=== PATIENT | female | born 1945 | race Caucasian/White ===

== ENCOUNTER 2017-02-25 16:59 | Emergency (ER) | payer OTHER ==
[~2017-02-25] VITALS: Ht 157.5 cm; Wt 136.0 kg
[~2017-02-25 16:59] MED LIST: ALBU0.08 INH; ASPI-435 PO; ATR25 PO; CLR10 PO; CRG125 PO; CYAN100T PO; FURO-85 PO; INSDGI SC; IPRA1AER2 INH; LEVO1TAB34 PO; LOSA100T65 PO; LSX20 PO; METF1000 PO; MOME50SP5; MULT1CHW4 PO; SIMV40TA4 PO; SITA50TA PO; [UNRECOGNIZED DRUG - CODE] PO
[2017-02-25 17:02] VITALS: TEMP 36.6; Ht 157.5 cm; Wt 136.0 kg
[2017-02-25] MEDS ORDERED: SODIUM CHLORIDE 0.9% 250ML 250 ML IV STA (17:24)
[2017-02-25] MEDS ORDERED: SODIUM CHLORIDE 0.9% 1000ML 1,000 ML IV STA (17:24)
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
[2017-02-25 17:57] LABS: BASO % 1.2 %; BASO ABS # 0.08 K/uL (0-0.2); COMPLETE YES; EOS % 5.2 %; HEMATOCRIT 39.6 % (37-47); IG% 0.1 %; LYMPH % 23.3 %; LYMPH ABS # 1.62 K/uL (1.2-3.4); MEAN CELL VOLUME 94.7 fL (80-100); MEAN CORPUSCULAR HEMOGLOBIN 31.1 pg (25-34); MEAN CORPUSCULAR HGB CONC 32.8 g/dl (32-36); MEAN PLATELET VOLUME 10.1 fL (7.4-10.4); MONO % 9.2 %; PLATELET COUNT 199 K/uL (130-400); RED BLOOD COUNT 4.18 M/uL (4.2-5.4); WHITE BLOOD COUNT 6.95 K/uL (4.8-10.8)
--- NOTE | 2017-02-25 18:02 | DIAGNOSTIC IMAGING REPORT ---
SINGLE VIEW CHEST CLINICAL HISTORY: Atypical chest pain. FINDINGS: An AP, portable, upright chest radiograph is compared to study dated 04/14/2016. Correlation is made with chest CT dated 05/07/2013. The examination is significantly degraded by portable technique, large body habitus, and patient rotation. A 2-lead cardiac pacemaker is unchanged in position. The heart is markedly enlarged and there is atherosclerotic calcification of the thoracic aorta. The pulmonary vasculature is noncongested. Chronic interstitial thickening is similar to previous. No airspace consolidation, large pleural effusion, or pneumothorax is seen. The skeletal structures are osteopenic. The bony thorax is grossly intact. IMPRESSION: 1. Cardiomegaly and cardiac pacemaker. There is no radiographic evidence of congestive failure. 2. No airspace consolidation or pleural effusion is seen. Electronically signed by: Celestino Guerrero M.D. 02/25/2017 6:01 PM Dictated Date/Time: 02/25/2017 6:00 PM
[2017-02-25 18:05] LABS: PARTIAL THROMBOPLASTIN RATIO 0.9; PROTHROMBIN TIME (PATIENT) 10.5 SECONDS (9.0-12.0)
[2017-02-25 18:12] LABS: BLOOD UREA NITROGEN 22 mg/dl (7-18); BUN/CREATININE RATIO 13.6 (10-20); CALCIUM 9.4 mg/dl (8.5-10.1); CARBON DIOXIDE 28 mmol/L (21-32); CHLORIDE 101 mmol/L (98-107); GLUCOSE 194 mg/dl (70-99); MAGNESIUM 1.7 mg/dl (1.8-2.4); POTASSIUM 4.2 mmol/L (3.5-5.1); SODIUM 137 mmol/L (136-145)
[2017-02-25] MEDS ORDERED: ALBINS/ INH (18:27)
[2017-02-25] MEDS ORDERED: ULT50 PO (18:27)
[2017-02-25] MEDS ORDERED: POTA1GRA PO (18:27)
[2017-02-25] MEDS ORDERED: INSDGIPEN SC (18:27)
[2017-02-25] MEDS ORDERED: QVRINH80 INH (18:27)
[2017-02-25] MEDS ORDERED: SNG10 PO (18:27)
[2017-02-25] MEDS ORDERED: MAGN400C2 PO (18:27)
[2017-02-25 18:32] LABS: ALKALINE PHOSPHATASE 73 U/L (45-117); ALT/SGPT 38 U/L (12-78); AST/SGOT 35 U/L (15-37); CKMB/CK RATIO 2.1 (0-3.0)
[2017-02-25 19:22] VITALS: BP 152/61; PULSE 76; O2SAT 95
== END 2017-02-25 20:15 | disposition home or self-care (01) ==
LOC: C.EDB 17:00
DX: R07.9 Chest pain, unspecified (principal); J45.909 Unspecified asthma, uncomplicated; I10 Essential (primary) hypertension; E11.9 Type 2 diabetes mellitus without complications; Z82.49 Family history of ischemic heart disease and other diseases of the circulatory system; Z79.82 Long term (current) use of aspirin; Z79.4 Long term (current) use of insulin

== ENCOUNTER → 2017-03-04 | Outpatient (CLI) | payer OTHER ==
[~2017-03-04] MED LIST changes: +ALBINS/ INH; -ALBU0.08 INH; -INSDGI SC; +INSDGIPEN SC; -LEVO1TAB34 PO; +MAGN400C2 PO; -MOME50SP5; +POTA1GRA PO; +QVRINH80 INH; +SNG10 PO; +ULT50 PO; -[UNRECOGNIZED DRUG - CODE] PO
--- NOTE | 2017-03-04 11:13 | DIAGNOSTIC IMAGING REPORT ---
LUMBAR SPINE WITHOUT CLINICAL HISTORY: 71 years-old Female presenting with STENOSIS. TECHNIQUE: Multidetector CT of the lumbar spine was performed without the use of intravenous contrast. IV contrast: None. COMPARISON: Correlation made with plain radiographs of the lumbar spine from sleep 11/19/[address] of the abdomen and pelvis from 02/19/2012. CT DOSE: The estimated cumulative dose is 1833.93 mGy.cm. 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 Lung bases clear. Nonobstructive bowel gas pattern. Multilevel degenerative changes of the lumbar spine, including prominent anterior osteophytosis at T12-L1 and L1-2, endplate sclerosis at L1-2, and gas within the intervertebral discs at every level except L5-S1. Gas also noted within the facet joints at L4-5. 4 mm of grade 1 anterolisthesis of L4 on L5. Vertebral body heights are maintained. Intervertebral disc height loss greatest at T12-L1 and L1-2 and to a lesser extent at L2-3. The combination of anterolisthesis of L4 on L5 as well as suspected L4-5 disc bulge and notable facet hypertrophy results in bilateral osseous neural foraminal narrowing at L4-5. No significant osseous spinal canal narrowing. No acute osseous injury. Degenerative changes of the sacral iliac joints partially visualized. Atherosclerosis of the normal caliber abdominal aorta. Remaining visualized paraspinal soft tissues are within normal limits. IMPRESSION: 1. Grade 1 anterolisthesis of L4 on L5. In combination with suspected L4-5 disc bulge and facet hypertrophy, bilateral osseous neural foraminal narrowing at L4-5 results. No osseous spinal canal narrowing. Electronically signed by: Ganesh Angel 03/04/2017 11:12 AM Dictated Date/Time: 03/04/2017 11:03 AM
== END | disposition home or self-care (01) ==
LOC: C.CTS 09:17
PROVIDERS: ATTEND Orthopaedic Surgery Orthopaedic Surgery of the Spine
DX: M48.06 Spinal stenosis, lumbar region (principal); M53.86 Other specified dorsopathies, lumbar region

== ENCOUNTER 2017-09-09 15:52 | Emergency (ER) | payer OTHER ==
[~2017-09-09] VITALS: Ht 160 cm; Wt 130.0 kg
[~2017-09-09 15:52] MED LIST changes: -ALBINS/ INH; -INSDGIPEN SC; -MAGN400C2 PO; -POTA1GRA PO; -QVRINH80 INH; -SNG10 PO
[2017-09-09 16:09] VITALS: TEMP 36.7; Ht 160 cm; Wt 130.0 kg
[2017-09-09] MEDS ORDERED: SODIUM CHLORIDE 0.9% 1000ML 1,000 ML IV STA (17:38)
[2017-09-09] MEDS ORDERED: ASTN (17:42)
[2017-09-09] MEDS ORDERED: BCTCR/30 EXT (17:42)
[2017-09-09] MEDS ORDERED: ACET-749 PO (17:42)
[2017-09-09] MEDS ORDERED: CHOL20009 PO (17:42)
[2017-09-09] MEDS ORDERED: ALBINS/ INH (18:27)
[2017-09-09] MEDS ORDERED: MAGN400C2 PO (18:27)
[2017-09-09] MEDS ORDERED: QVRINH80 INH (18:27)
[2017-09-09] MEDS ORDERED: INSDGIPEN SC (18:27)
[2017-09-09] MEDS ORDERED: SNG10 PO (18:27)
[2017-09-09] MEDS ORDERED: POTA1GRA PO (18:27)
[2017-09-09 19:09] LABS: CALCIUM 10.8 mg/dl (8.5-10.1); CREATININE 2.1 mg/dl (0.60-1.20)
--- NOTE | 2017-09-09 20:50 | EMERGENCY ROOM VISIT NOTE ---
History Report prepared by Garth: [place] Under the Supervision of: Dr. Reza Reddy M.D. First contact with patient: 17:38 Chief Complaint: ABNORMAL LABS Stated Complaint: KIDNEY MALFUNCTION/FOOT INFECTION History of Present Illness The patient is a 72 year old female who presents to the Emergency Room with complaints of elevated creatinine and hyperkalemia. 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 She was called with her results shortly prior to arrival. The patient denies chest pain, SOB, palpitations, fevers, nausea, vomiting, or diarrhea. Source of History: patient Onset: Today Quality: other (high creatinine and hyperkalemia) Associated Symptoms: No chest pain, No SOB, No nausea, No vomiting, No diarrhea Note: The patient denies palpitations. Review of Systems See HPI for pertinent positives and negatives. A total of ten systems were reviewed and were otherwise negative. Past Medical & Surgical Medical Problems: (1) Asthma (2) Benign hypertension (3) bilateral total knee arthroplasty (4) Diabetes mellitus (5) History of - tubal ligation (6) Pacemaker (7) Tonsillectomy Surgical Problems: (1) H/O tubal ligation (2) History of carpal tunnel release (3) History of cataract removal with insertion of prosthetic lens Family History Hypertension Social History Smoking Status: Never Smoker Drug Use: none Marital Status: Housing Status: lives with family Occupation Status: retired Current/Historical Medications Scheduled Aspirin (Aspirin 81), 81 MG PO QPM Azelastine Hcl (Astelin Nasal [place]), 1-2 SPRAYS NA BID Beclomethasone Dip (Qvar), 2 PUFFS INH BID Carvedilol (Carvedilol), 12.5 MG PO BID Cholecalciferol (Vitamin D), 2,000 UNITS PO QPM Cyanocobalamin (Vitamin B-12), 100 MCG PO DAILY Furosemide (Furosemide), 20 MG PO 3XWK Furosemide (Lasix), 40 MG PO 4XWK Insulin Glargine (Lantus Solostar), 65 UNITS SC BID Loratadine (Claritin), 10 MG PO DAILY Losartan Potassium (Cozaar), 100 MG PO DAILY Magnesium Oxide (Magnesium Oxide), 1 CAP PO DAILY Metformin Hcl (Glucophage), 1,000 MG PO BID Montelukast Sod (Montelukast Sodium), 1 TAB PO DAILY Multiple Vitamins W/ Minerals (Adult Gummy), 2 TABS PO DAILY Mupirocin 2% (Bactroban 2%), 1 APPLN EXT UD Simvastatin (Zocor), 40 MG PO QPM Sitagliptin Phosphate (Januvia), 50 MG PO DAILY Scheduled PRN Acetaminophen/Codeine (Tylenol W/Codeine #3), 1 TAB PO Q6 PRN for Pain Albuterol Sulf (Proventil 0.083% 2.5MG/3ML), 2.5 MG INH QID PRN for SOB/Wheezing Allergies Coded Allergies: Fluticasone (Unverified Allergy, Severe, WATER ON LUNGS, 02/25/17) Salmeterol (Unverified Allergy, Severe, WATER ON LUNGS, 02/25/17) Molds and Smuts (Unverified Allergy, Mild, 02/25/17) Propoxyphene (Unverified Allergy, Mild, FROM DARVOCET, 02/25/17) Benzocaine (Verified Allergy, Unknown, ?, 02/25/17) Prednisone (Verified Adverse Reaction, Intermediate, HYPERGLYCEMIA, ) Uncoded Allergies: vinyl (Adverse Reaction, Unknown, RASH, 02/25/17) vinyl from cars - no latex allergy Physical Exam Vital Signs Date Time Temp Pulse Resp B/P (MAP) Pulse Ox O2 Delivery O2 Flow Rate FiO2 09/09/17 21:26 81 20 147/84 99 09/09/17 20:03 83 18 155/79 98 Room Air 09/09/17 18:18 77 20 140/62 96 09/09/17 16:09 36.7 89 16 149/65 93 Room Air Physical Exam GENERAL: Awake, alert, well-appearing, in no distress HENT: Normocephalic, Atraumatic. no hemotympanum bilaterally, hernandez sign negative bilaterally. Oropharynx unremarkable. EYES: Normal conjunctiva. Sclera non-icteric. PERRL bilaterally. EOMI bilaterally. NECK: Supple. No nuchal rigidity. FROM. No JVD. No C-spine tenderness. RESPIRATORY: Clear to auscultation. CARDIAC: Regular rate, normal rhythm. Extremities warm and well perfused. Equal palpable radial pulses to the bilateral upper extremities. Equal palpable DP pulses to the bilateral lower extremities. ABDOMEN: Soft, non-distended. No tenderness to palpation. No rebound or guarding. No masses. Rovsig Negative. RECTAL: Deferred. MUSCULOSKELETAL: Chest examination reveals no tenderness. The back is symmetrical on inspection without obvious abnormality. There is no CVA tenderness to palpation. No joint edema. LOWER EXTREMITIES: Calves are equal size bilaterally and non-tender. No edema. No discoloration. NEURO: Normal sensorium. No sensory or motor deficits noted. No pronator drift. No facial droop. No dysarthria. SKIN: No rash or jaundice noted. Medical Decision & Procedures Laboratory Results 09/09/17 18:10 09/09/17 19:21 Test 09/09/17 18:10 Anion Gap 6.0 mmol/L (3-11) Est Creatinine Clear Calc Drug Dose 31.9 ml/min Estimated GFR () 26.6 Estimated GFR (Non- 22.9 BUN/Creatinine Ratio 17.5 (10-20) Calcium Level 10.8 mg/dl (8.5-10.1) Laboratory results reviewed by me Medications Administered Medications (Trade) Dose Ordered Sig/Brendan Route Start Time Stop Time Status Last Admin Dose Admin Sodium Chloride 1,000 ml @ 125 mls/hr Q8H STAT IV 09/09/17 17:38 09/09/17 21:44 DC 09/09/17 18:16 125 MLS/HR ECG Indication: other (abnormal labs) Rate (beats per minute): 68 Rhythm: other (Paced rhythm) Findings: no acute ischemic change, other (FL and QTC intervals within normal limits. QRS interval increased) Comparison ECG Date: January 2017 Change: no significant change ED Course 1739: The patient was evaluated in room C6. A complete history and physical exam was performed. 1801: I obtained electronic medical records for the patient. She has a history of CKD stage 3. Lab results from today (Sep 09) showed a creatinine of 2.2 and a potassium of 6.0. Previous creatinine values from December through April 2017 range from 1.3 to 1.6. Previous potassium values ranged from 4.9 to 5.1. 2026: I discussed the patient's case with Dr. Tobar of Nephrology. I informed him of the patient's creatinine of 2.1 and potassium of 5.1. EKG showed no findings consistent with hyperkalemia. I and Dr. Tobar agrees with discharging the patient. He recommends informing the patient to hold potassium, Vitamin D3, and Lasix until he is able to reevaluate the patient on Tuesday. Discussed results and discharge instructions with the patient and family: she verbalized understanding and agreement. The patient is ready for discharge. Medical Decision I obtained electronic medical records for the patient. She has a history of CKD stage 3. Lab results from today (Sep 09) showed a creatinine of 2.2 and a potassium of 6.0. Previous creatinine values from December through April 2017 range from 1.3 to 1.6. Previous potassium values ranged from 4.9 to 5.1. I discussed the patient's case with Dr. Tobar of Nephrology. I informed him of the patient's creatinine of 2.1 and potassium of 5.1. EKG showed no findings consistent with hyperkalemia. I and Dr. Tobar agrees with discharging the patient. He recommends informing the patient to hold potassium, Vitamin D3, and Lasix until he is able to reevaluate the patient on Tuesday. Discussed results and discharge instructions with the patient and family: she verbalized understanding and agreement. The patient is ready for discharge. Medication Reconcilliation Current Medication List: was personally reviewed by me Blood Pressure Screening Patient's blood pressure: Elevated blood pressure Blood pressure disposition: Elevated BP felt to be situational Impression Primary Impression: CKD (chronic kidney disease) Scribe Attestation The scribe's documentation has been prepared under my direction and personally reviewed by me in its entirety. I confirm that the note above accurately reflects all work, treatment, procedures, and medical decision making performed by me. The chart was completed utilizing [employer] Speech voice recognition software. Grammatical errors, random word insertions, pronoun errors, and incomplete sentences are an occasional consequence of this system due to software limitations, ambient noise, and hardware issues. Any formal questions or concerns about the content, text, or information contained within the body of this dictation should be directly addressed to the physician for clarification. Departure Information Dispostion Home / Self-Care Referrals Asael Jones M.D.([facility]) (PCP) Forms HOME CARE DOCUMENTATION FORM, IMPORTANT VISIT INFORMATION, WORK / SCHOOL INSTRUCTIONS Patient Instructions Kidney Disease Chronic Dc, My [facility] Additional Instructions DO NOT TAKE LASIX, CHOLECALCIFEROL, HOLD ORAL POTASSIUM UNTIL BEING RE- EVALUATED BY DR. TOBAR ON TUESDAY FOLLOW UP WITH YOUR INVESTOR RELATIONS COORDINATOR DR. TOBAR ON TUESDAY
[2017-09-09 21:26] VITALS: BP 147/84; PULSE 81; O2SAT 99
== END 2017-09-09 21:27 | disposition home or self-care (01) ==
LOC: C.EDB 15:56 → C.EDC 21:27
DX: N18.9 Chronic kidney disease, unspecified (principal); I12.9 Hypertensive chronic kidney disease with stage 1 through stage 4 chronic kidney disease, or unspecified chronic kidney disease; E11.9 Type 2 diabetes mellitus without complications; J45.909 Unspecified asthma, uncomplicated; Z96.651 Presence of right artificial knee joint; Z96.652 Presence of left artificial knee joint; Z95.0 Presence of cardiac pacemaker; Z98.51 Tubal ligation status; Z98.49 Cataract extraction status, unspecified eye; Z98.890 Other specified postprocedural states; Z79.4 Long term (current) use of insulin; Z79.82 Long term (current) use of aspirin; Z79.84 Long term (current) use of oral hypoglycemic drugs; Z79.899 Other long term (current) drug therapy; Z88.8 Allergy status to other drugs, medicaments and biological substances; Z91.09 Other allergy status, other than to drugs and biological substances; Z82.49 Family history of ischemic heart disease and other diseases of the circulatory system

== ENCOUNTER 2017-09-30 14:50 | Emergency (ER) | payer OTHER ==
[~2017-09-30] VITALS: Ht 160 cm; Wt 130.0 kg
[~2017-09-30 14:50] MED LIST changes: +ACET-749 PO; +ALBINS/ INH; +ASTN; -ATR25 PO; +BCTCR/30 EXT; +CHOL20009 PO; +INSDGIPEN SC; -IPRA1AER2 INH; +MAGN400C2 PO; +QVRINH80 INH; +SNG10 PO; -ULT50 PO
[2017-09-30 14:59] VITALS: TEMP 36.6; Ht 160 cm; Wt 130.0 kg
[2017-09-30] MEDS ORDERED: ONDANSETRON INJ 2 MG/ML 2 ML VIAL IV STA (15:12)
[2017-09-30] MEDS ORDERED: MoRPHine SULFATE 4 MG/ML 1 ML CARP\\VIAL IV PRN (15:15)
--- NOTE | 2017-09-30 15:16 | EMERGENCY ROOM VISIT NOTE ---
History Report prepared by Garth: Roberto Veronica Under the Supervision of: Dr. Celestino Gomez M.D. First contact with patient: 15:05 Chief Complaint: INFECTION Stated Complaint: INFECTION IN R FOOT, SEVERE PAIN Nursing Triage Summary: "I'm here because I am frustrated, i've had a right foot infection for basically the last two months, i've seen 5 doctors six times plus 4 PA-C's. Supposedly it's better but it hurts like hell. I called the sql server dba this morning but she is out of town." Pt has never had a referral to the wound clinic. Pt has had multiple rounds of abx treatment History of Present Illness The patient is a 72 year old female who presents to the Emergency Room with complaints of waxing and waning pain in her right foot and toes that she has been dealing with for the past two months. The patient states that her pain began around Thanksgiving time, and has been causing her difficulty since. She is not able to wear socks or shoes because they worsen her pain. She is currently taking hydrocodone for pain. She has visited with 5 doctors and 4 physician's assistants, including a sql server dba for her symptoms and has not had any relief. An ultrasound performed in [facility] found vascular disease in the right leg. She has been prescribed multiple different antibiotics in oral, dermal, and intramuscular doses. She has a pacemaker and artificial knee and cannot have any MRIs performed. She has an appointment scheduled with a vascular specialist in [place] scheduled for the . Source of History: patient Onset: Two Months AUTOMATION QA LEAD Position: foot (right) Timing: waxes/wanes Modifying Factors (Worsening): other (socks/shoes) Review of Systems See HPI for pertinent positives & negatives. A total of 10 systems reviewed and were otherwise negative. Past Medical & Surgical Medical Problems: (1) Asthma (2) Benign hypertension (3) bilateral total knee arthroplasty (4) Diabetes mellitus (5) History of - tubal ligation (6) Pacemaker (7) Tonsillectomy Surgical Problems: (1) H/O tubal ligation (2) History of carpal tunnel release (3) History of cataract removal with insertion of prosthetic lens Family History Hypertension Social History Smoking Status: Never Smoker Drug Use: none Marital Status: Housing Status: lives with family Occupation Status: retired Current/Historical Medications Scheduled Amoxicillin & Pot Clavulanate (Augmentin 875-125 mg), 875 MG PO BID Aspirin (Aspirin 81), 81 MG PO QPM Beclomethasone Dip (Qvar), 2 PUFFS INH BID Carvedilol (Carvedilol), 12.5 MG PO BID Cyanocobalamin (Vitamin B-12), 100 MCG PO DAILY Insulin Glargine (Lantus Solostar), 65 UNITS SC BID Loratadine (Claritin), 10 MG PO DAILY Losartan Potassium (Cozaar), 100 MG PO DAILY Metformin Hcl (Glucophage), 1,000 MG PO BID Montelukast Sod (Montelukast Sodium), 1 TAB PO DAILY Multiple Vitamins W/ Minerals (Adult Gummy), 2 TABS PO DAILY Mupirocin 2% (Bactroban 2%), 1 APPLN EXT UD Simvastatin (Zocor), 40 MG PO QPM Sitagliptin Phosphate (Januvia), 50 MG PO DAILY Scheduled PRN Acetaminophen/Codeine (Tylenol W/Codeine #3), 1 TAB PO Q6 PRN for Pain Albuterol Sulf (Proventil 0.083% 2.5MG/3ML), 2.5 MG INH QID PRN for SOB/Wheezing Azelastine Hcl (Astelin Nasal [place]), 1-2 SPRAYS NA BID PRN for UD Hydrocodone/Acetaminophen 5MG/325MG ([place] 5MG/325MG), 1 TABLET PO Q6 PRN for Pain Allergies Coded Allergies: Fluticasone (Unverified Allergy, Severe, WATER ON LUNGS, 09/30/17) Salmeterol (Unverified Allergy, Severe, WATER ON LUNGS, 09/30/17) Molds and Smuts (Unverified Allergy, Mild, 09/30/17) Propoxyphene (Unverified Allergy, Mild, FROM DARVOCET, 09/30/17) Benzocaine (Verified Allergy, Unknown, ?, 09/30/17) Prednisone (Verified Adverse Reaction, Intermediate, HYPERGLYCEMIA, 09/30/17 ) Uncoded Allergies: vinyl (Adverse Reaction, Unknown, RASH, 02/25/17) vinyl from cars - no latex allergy Physical Exam Vital Signs Date Time Temp Pulse Resp B/P (MAP) Pulse Ox O2 Delivery O2 Flow Rate FiO2 2/2/18 19:29 80 18 161/67 98 09/30/17 18:22 68 16 150/51 100 Room Air 09/30/17 16:49 72 16 177/60 96 Room Air 09/30/17 14:59 36.6 69 20 124/58 100 Room Air Physical Exam GENERAL: Patient is in no acute distress. HEENT: No acute trauma, normocephalic atraumatic, mucous membranes moist, no nasal congestion, no scleral icterus. NECK: No stridor, no adenopathy, no meningismus, trachea is midline. LUNGS: Clear to auscultation bilaterally, no wheeze, no rhonchi, breath sounds equal. HEART: Without murmurs gallops or rubs, regular rate and rhythm. ABDOMEN: Soft, nontender, bowel sounds positive, no hernias, no peritonitis. EXTREMITIES: The right foot is swollen when compared to the left. The 2nd and 1st toes are erythematous and there is a healing abrasion to the dorsum of the 2nd toe and the base of the nail bed. No gross deformity, no drainage. Capillary refill is present but quite slow. The toes are quite tender to touch. NEUROLOGIC: Oriented x 3, no acute motor or sensory deficits, no focal weakness. SKIN: No rash, no jaundice, no diaphoresis. Medical Decision & Procedures ER Provider Diagnostic Interpretation: Imaging studies from [facility] Outpatient: 08/31/2017 9:00 AM - Jacob Watson In FOOT, MINIMUM 3 VIEWS - 08/30/2017 4:32 pm IMPRESSION: No radiographic evidence of osteomyelitis at this time. Follow-up imaging may be of value, as clinically indicated. 09/22/2017 6:39 - Walter Rad In VASCULAR LAB RESULTS DATE OF EXAMINATION: September 22, 2017 INDICATION: Non-healing ulcer IMPRESSION: KELLY at rest is 0.67 on the right and .99 on the left. 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 Waveform analysis is consistent with mild arterial occlusive disease for the left lower extremity. Radiology results as stated below per my review and radiologist interpretation: R LOWER EXTREMITY WITHOUT CLINICAL HISTORY: 72 years-old Female presenting with right foot pain, poss osteo or fx, infection in the right foot. TECHNIQUE: Multidetector CT of the right foot was performed without the use of intravenous contrast. IV contrast: None. A dose lowering technique was used consistent with the principles of ALARA (as low as reasonably achievable). COMPARISON: Plain radiographs from 08/27/2013. CT DOSE (mGy.cm): The estimated cumulative dose is 237.47 mGy.cm. FINDINGS: Stock Control Clerk topogram: Unremarkable. Diffuse subcutaneous edema and skin thickening throughout the foot. No focal irregularity of the cutis or subcutaneous emphysema to suggest a site of ulceration or necrotizing fasciitis. No evidence of osseous erosion or periosteal reaction to suggest osteomyelitis. No acute fracture or malalignment. Mild degenerative changes noted in the midfoot. Calcification along the medial aspect of the anterior process of the talus along the posterior medial aspect of the navicular may relate to a partially ossified accessory navicular or degenerative change. The ankle mortise is intact. Allowing for noncontrast technique, no focal fluid collection. Mild degenerative change at the ankle mortise, which is current. Atherosclerosis. IMPRESSION: Diffuse subcutaneous edema and skin thickening could be compatible with cellulitis. No CT evidence of osteomyelitis or acute osseous injury. Allowing for noncontrast technique, no evidence of abscess. If there is continuing clinical concern, noncontrast MR of the foot is more sensitive for osteomyelitis. Electronically signed by: Ganesh Angel M.D. 09/30/2017 4:13 PM Dictated Date/Time: 09/30/2017 4:08 PM R ART DOP DUPLEX LWR EXT UNI CLINICAL HISTORY: 72 years-old Female presenting with cool foot. TECHNIQUE: Real-time grayscale and color and spectral Doppler ultrasound imaging of the bilateral lower extremity arteries was performed. Measurements calculated based on NASCET criteria. COMPARISON: None. FINDINGS: Right: Common femoral artery: Patent. Peak systolic velocity 122 cm/s. Superficial femoral artery: Patent. Peak systolic velocity 87-124 cm/s. Popliteal artery: Patent. Peak systolic velocity 48-66 cm/s. Posterior tibial artery: Patent. Peak systolic velocity 26 cm/s. Anterior tibial artery: Patent. Peak systolic velocity 33 cm/s. Peroneal artery: Patent. Peak systolic velocity 45 cm/s. Dorsalis pedis: Patent. Peak systolic velocity 8 cm/s. KELLY Unable to be performed. Reference ranges: Normal KELLY 1.0-1.4; 0.9-0.99 borderline; less than 0.9 abnormal. IMPRESSION: 1. No hemodynamically significant stenosis seen within the lower extremity arteries. 2. Normal ankle-brachial indices. Electronically signed by: Ganesh Angel M.D. 09/30/2017 6:28 PM Dictated Date/Time: 09/30/2017 6:25 PM Laboratory Results 09/30/17 15:39 Red Blood Count 4.00, Mean Corpuscular Volume 95.0, Mean Corpuscular Hemoglobin 31.3, Mean Corpuscular Hemoglobin Concent 32.9, Mean Platelet Volume 9.7, Neutrophils (%) (Auto) 53.6, Lymphocytes (%) (Auto) 28.4, Monocytes (%) (Auto) 10.4, Eosinophils (%) (Auto) 6.7, Basophils (%) (Auto) 0.9, Neutrophils # (Auto ) 3.13, Lymphocytes # (Auto) 1.66, Monocytes # (Auto) 0.61, Eosinophils # (Auto ) 0.39, Basophils # (Auto) 0.05 09/30/17 15:39 Test 09/30/17 15:39 White Blood Count 5.84 K/uL (4.8-10.8) Red Blood Count 4.00 M/uL (4.2-5.4) Hemoglobin 12.5 g/dL (12.0-16.0) Hematocrit 38.0 % (37-47) Mean Corpuscular Volume 95.0 fL (80-100) Mean Corpuscular Hemoglobin 31.3 pg (25-34) Mean Corpuscular Hemoglobin Concent 32.9 g/dl (32-36) Platelet Count 177 K/uL (130-400) Mean Platelet Volume 9.7 fL (7.4-10.4) Neutrophils (%) (Auto) 53.6 % Lymphocytes (%) (Auto) 28.4 % Monocytes (%) (Auto) 10.4 % Eosinophils (%) (Auto) 6.7 % Basophils (%) (Auto) 0.9 % Neutrophils # (Auto) 3.13 K/uL (1.4-6.5) Lymphocytes # (Auto) 1.66 K/uL (1.2-3.4) Monocytes # (Auto) 0.61 K/uL (0.11-0.59) Eosinophils # (Auto) 0.39 K/uL (0-0.5) Basophils # (Auto) 0.05 K/uL (0-0.2) RDW Standard Deviation 52.9 fL (36.4-46.3) RDW Coefficient of Variation 15.2 % (11.5-14.5) Immature Granulocyte % (Auto) 0.0 % Immature Granulocyte # (Auto) 0.00 K/uL (0.00-0.02) Erythrocyte Sedimentation Rate 34 mm/hr (0-21) Anion Gap 3.0 mmol/L (3-11) Est Creatinine Clear Calc Drug Dose 50.0 ml/min Estimated GFR () 45.8 Estimated GFR (Non- 39.5 BUN/Creatinine Ratio 10.9 (10-20) Calcium Level 9.2 mg/dl (8.5-10.1) C-Reactive Protein < 0.29 mg/dl (0-0.29) Laboratory results reviewed by me. Medications Administered Medications (Trade) Dose Ordered Sig/Brendan Route Start Time Stop Time Status Last Admin Dose Admin Amoxicillin/ Clavulanate Potassium (Augmentin 875MG Home Pack) 1 Pump Audio STK-MED ONCE PO 09/30/17 18:59 09/30/17 19:00 DC 09/30/17 19:29 1 HOMEPACK ED Course 1505: The patient was evaluated in room B4B. A complete history and physical exam was performed. 1855: Reevaluated the patient. Discussed results and discharge instructions: She verbalized understanding and agreement. The patient is ready for discharge. 1858: Ordered Amoxicillin/Clavulanate Potassium 875 PO. Medical Decision Differential Diagnosis includes; Peripheral artery disease, foot ischemia, foot fracture, osteomyelitis, failed outpatient treatment, abscess. There is no leukocytosis or concerning anemia. Sedimentation rate only minimally elevated, C-reactive protein is normal. No renal failure or significant electrolyte abnormality. Right leg arterial ultrasound does not show any significant arterial stenosis, no arterial obstruction. Right foot CT shows cellulitis, no osteomyelitis, no obvious abscess. On exam, the patient did have capillary refill to the right first and second toes, the refill was slow though. The patient was stable for discharge. She will be discharged on Augmentin twice a day for 10 days. This is being used for presumed cellulitis. She has an appointment with vascular upcoming, she will keep this appointment. The patient was encouraged to return for worsening pain, any fever, worsening redness. Medication Reconcilliation Current Medication List: was personally reviewed by me Blood Pressure Screening Patient's blood pressure: Elevated blood pressure Blood pressure disposition: Elevated BP felt to be situational Impression Primary Impression: Cellulitis of right foot Additional Impression: Right foot pain Scribe Attestation The scribe's documentation has been prepared under my direction and personally reviewed by me in its entirety. I confirm that the note above accurately reflects all work, treatment, procedures, and medical decision making performed by me. Departure Information Dispostion Home / Self-Care Prescriptions Amoxicillin & Pot Clavulanate (Augmentin 875-125 mg) 1 Tab Tab 875 MG PO BID for 10 Days, #20 TAB Prov: Celestino Gomez M.D. 09/30/17 Referrals Asael Jones M.D.(CINTHYA) (PCP) Forms HOME CARE DOCUMENTATION FORM, IMPORTANT VISIT INFORMATION, WORK / SCHOOL INSTRUCTIONS Patient Instructions My [facility] Additional Instructions try to keep the foot elevated when able as we discussed watch for worsening infection--redness, fever, increasing pain use the pain meds your doctor prescribed augmentin 2x per day for 10 days see the specialist in 10 days as scheduled Problem Qualifiers
[2017-09-30] MEDS ORDERED: HYDR-5688 PO (15:26)
[2017-09-30 16:06] LABS: BASO % 0.9 %; BASO ABS # 0.05 K/uL (0-0.2); EOS % 6.7 %; EOS ABS # 0.39 K/uL (0-0.5); HEMOGLOBIN 12.5 g/dL (12.0-16.0); LYMPH % 28.4 %; LYMPH ABS # 1.66 K/uL (1.2-3.4); MEAN CORPUSCULAR HEMOGLOBIN 31.3 pg (25-34); MEAN CORPUSCULAR HGB CONC 32.9 g/dl (32-36); MEAN PLATELET VOLUME 9.7 fL (7.4-10.4); MONO % 10.4 %; MONO ABS # 0.61 K/uL (0.11-0.59); NEUT % 53.6 %; NEUT ABS # 3.13 K/uL (1.4-6.5); PLATELET COUNT 177 K/uL (130-400); RED CELL DISTRIBUTION WIDTH CV 15.2 % (11.5-14.5); RED CELL DISTRIBUTION WIDTH SD 52.9 fL (36.4-46.3); WHITE BLOOD COUNT 5.84 K/uL (4.8-10.8)
--- NOTE | 2017-09-30 16:14 | DIAGNOSTIC IMAGING REPORT ---
R LOWER EXTREMITY WITHOUT CLINICAL HISTORY: 72 years-old Female presenting with right foot pain, poss osteo or fx, infection in the right foot. TECHNIQUE: Multidetector CT of the right foot was performed without the use of intravenous contrast. IV contrast: None. A dose lowering technique was used consistent with the principles of ALARA (as low as reasonably achievable). COMPARISON: Plain radiographs from 08/27/2013. CT DOSE (mGy.cm): The estimated cumulative dose is 237.47 mGy.cm. FINDINGS: Ultrasound Technician topogram: Unremarkable. Diffuse subcutaneous edema and skin thickening throughout the foot. No focal irregularity of the cutis or subcutaneous emphysema to suggest a site of ulceration or necrotizing fasciitis. No evidence of osseous erosion or periosteal reaction to suggest osteomyelitis. No acute fracture or malalignment. Mild degenerative changes noted in the midfoot. Calcification along the medial aspect of the anterior process of the talus along the posterior medial aspect of the navicular may relate to a partially ossified accessory navicular or degenerative change. The ankle mortise is intact. Allowing for noncontrast technique, no focal fluid collection. Mild degenerative change at the ankle mortise, which is current. Atherosclerosis. IMPRESSION: Diffuse subcutaneous edema and skin thickening could be compatible with cellulitis. No CT evidence of osteomyelitis or acute osseous injury. Allowing for noncontrast technique, no evidence of abscess. If there is continuing clinical concern, noncontrast MR of the foot is more sensitive for osteomyelitis. Electronically signed by: Ganesh Angel M.D. 09/30/2017 4:13 PM Dictated Date/Time: 09/30/2017 4:08 PM
[2017-09-30 16:26] LABS: BLOOD UREA NITROGEN 15 mg/dl (7-18); CALCIUM 9.2 mg/dl (8.5-10.1); CARBON DIOXIDE 30 mmol/L (21-32); CREATININE 1.34 mg/dl (0.60-1.20); GLUCOSE 123 mg/dl (70-99); POTASSIUM 4.9 mmol/L (3.5-5.1); SODIUM 137 mmol/L (136-145)
--- NOTE | 2017-09-30 18:29 | DIAGNOSTIC IMAGING REPORT ---
R ART DOP DUPLEX LWR EXT UNI CLINICAL HISTORY: 72 years-old Female presenting with cool foot. TECHNIQUE: Real-time grayscale and color and spectral Doppler ultrasound imaging of the bilateral lower extremity arteries was performed. Measurements calculated based on NASCET criteria. COMPARISON: None. FINDINGS: Right: Common femoral artery: Patent. Peak systolic velocity 122 cm/s. Superficial femoral artery: Patent. Peak systolic velocity 87-124 cm/s. Popliteal artery: Patent. Peak systolic velocity 48-66 cm/s. Posterior tibial artery: Patent. Peak systolic velocity 26 cm/s. Anterior tibial artery: Patent. Peak systolic velocity 33 cm/s. Peroneal artery: Patent. Peak systolic velocity 45 cm/s. Dorsalis pedis: Patent. Peak systolic velocity 8 cm/s. KELLY Unable to be performed. Reference ranges: Normal KELLY 1.0-1.4; 0.9-0.99 borderline; less than 0.9 abnormal. IMPRESSION: 1. No hemodynamically significant stenosis seen within the lower extremity arteries. 2. Normal ankle-brachial indices. Electronically signed by: Ganesh Angel M.D. 09/30/2017 6:28 PM Dictated Date/Time: 09/30/2017 6:25 PM
[2017-09-30] MEDS ORDERED: AMOX875T PO (18:50)
[2017-09-30] MEDS ORDERED: AMOXICIL/CLAVU 875MG HOME PACK PO ONE (18:59)
[2017-09-30 19:29] VITALS: BP 161/67; PULSE 80; O2SAT 98
[2017-09-30] MEDS ORDERED: AMOXICILLIN/CLAVULANATE TAB 875 MG TAB PO ONE (21:00)
== END 2017-09-30 19:30 | disposition home or self-care (01) ==
LOC: C.EDB 14:52
DX: L03.115 Cellulitis of right lower limb (principal); M79.671 Pain in right foot; J45.909 Unspecified asthma, uncomplicated; I10 Essential (primary) hypertension; Z96.653 Presence of artificial knee joint, bilateral; E11.9 Type 2 diabetes mellitus without complications; Z95.0 Presence of cardiac pacemaker; Z82.49 Family history of ischemic heart disease and other diseases of the circulatory system; Z79.82 Long term (current) use of aspirin; Z79.899 Other long term (current) drug therapy

== ENCOUNTER 2017-10-13 15:02 | Emergency (ER) | payer OTHER ==
[~2017-10-13] VITALS: Ht 162.6 cm; Wt 135.0 kg
[~2017-10-13 15:02] MED LIST changes: -CHOL20009 PO; -FURO-85 PO; +HYDR-5688 PO; -LSX20 PO; -MAGN400C2 PO
[2017-10-13 15:31] VITALS: Ht 162.6 cm; Wt 135.0 kg
[2017-10-13] MEDS ORDERED: CLOP1TAB15 PO (16:16)
--- NOTE | 2017-10-13 18:52 | DIAGNOSTIC IMAGING REPORT ---
RIGHT LOWER EXTREMITY ARTERIAL DOPPLER STUDY CLINICAL HISTORY: rt foot pain s/p angioplasty of popliteal artery 2 days ago, add KELLY's COMPARISON STUDY: Right lower extremity arterial Doppler 09/30/2017. FINDINGS: Normal velocities and biphasic to triphasic waveforms seen within the right common femoral and right superficial femoral arteries. Elevated velocity of 203 cm/s within the proximal right popliteal artery which also demonstrates monophasic waveform. This results in low velocity monophasic waveforms seen within the anterior tibial, posterior tibial, peroneal, and dorsalis pedis arteries. No areas of arterial occlusion identified. The right ankle-brachial index measured between 0.85 and 0.87. The left ankle-brachial measured between 0.96 and 1.1. IMPRESSION: 1. Focal area of hemodynamically significant stenosis seen within the right proximal popliteal artery as described above. 2. No areas of arterial occlusion. 3. Slightly abnormal right ankle-brachial index measured between 0.85 and 0.87. Normal left ankle-brachial index. Electronically signed by: Jj Solano M.D. 10/13/2017 6:50 PM Dictated Date/Time: 10/13/2017 6:46 PM
--- NOTE | 2017-10-13 20:19 | EMERGENCY ROOM VISIT NOTE ---
History Report prepared by Garth: Ghulam Armendariz Under the Supervision of: Dr. Kike Baires D.O. First contact with patient: 15:18 Stated Complaint: R LEG AND FOOT PAIN History of Present Illness The patient is a 72 year old female who presents to the Emergency Room with complaints of constant right foot pain beginning last night. The patient states that she has been having right foot problems for the past ten weeks. She notes that her foot pain originally began with a foot infection that never correctly healed. She reports that she had vascular surgery 2 days ago behind her right knee for her symptoms. The patient states that she was discharged last night, and began experiencing pain in her right foot. She notes that her pain is located at a bruise on her heel and in her toes. She also complains that her foot is warmer than usual and that her foot feels tight, "like it is bound up with thread." Per , the patient was given an ice pack last night with some relief of her symptoms. He reports that the patient took acetaminophen an hour ago. The patient states that she has a pacemaker in place. Source of History: patient, spouse/significant other Onset: last night Position: foot (right) Quality: other ("tight") Timing: constant Modifying Factors (Relieving): ice Note: She also complains of foot warmth. Review of Systems See HPI for pertinent positives & negatives. A total of 10 systems reviewed and were otherwise negative. Past Medical & Surgical Medical Problems: (1) Asthma (2) Benign hypertension (3) bilateral total knee arthroplasty (4) Diabetes mellitus (5) History of - tubal ligation (6) Pacemaker (7) Tonsillectomy Surgical Problems: (1) H/O tubal ligation (2) History of carpal tunnel release (3) History of cataract removal with insertion of prosthetic lens Family History Cancer Diabetes mellitus Heart disease Hypertension Social History Smoking Status: Never Smoker Drug Use: none Marital Status: Housing Status: lives with family Occupation Status: retired Current/Historical Medications Scheduled Aspirin (Aspirin 81), 81 MG PO QPM Beclomethasone Dip (Qvar), 2 PUFFS INH BID Carvedilol (Carvedilol), 12.5 MG PO BID Clopidogrel (Plavix), 75 MG PO QAM Cyanocobalamin (Vitamin B-12), 100 MCG PO DAILY Insulin Glargine (Lantus Solostar), 65 UNITS SC BID Loratadine (Claritin), 10 MG PO DAILY Losartan Potassium (Cozaar), 100 MG PO DAILY Metformin Hcl (Glucophage), 1,000 MG PO BID Montelukast Sod (Montelukast Sodium), 1 TAB PO DAILY Multiple Vitamins W/ Minerals (Adult Gummy), 2 TABS PO DAILY Mupirocin 2% (Bactroban 2%), 1 APPLN EXT UD Simvastatin (Zocor), 40 MG PO QPM Sitagliptin Phosphate (Januvia), 50 MG PO DAILY Scheduled PRN Acetaminophen/Codeine (Tylenol W/Codeine #3), 1 TAB PO Q6 PRN for Pain Albuterol Sulf (Proventil 0.083% 2.5MG/3ML), 2.5 MG INH QID PRN for SOB/Wheezing Azelastine Hcl (Astelin Nasal [place]), 1-2 SPRAYS NA BID PRN for UD Hydrocodone/Acetaminophen 5MG/325MG ([place] 5MG/325MG), 1 TABLET PO Q6 PRN for Pain Allergies Coded Allergies: Fluticasone (Verified Allergy, Severe, WATER ON LUNGS, 10/13/17) Salmeterol (Verified Allergy, Severe, WATER ON LUNGS, 10/13/17) Molds and Smuts (Verified Allergy, Mild, 10/13/17) Propoxyphene (Verified Allergy, Mild, FROM DARVOCET, 10/13/17) Benzocaine (Verified Allergy, Unknown, ?, 10/13/17) Prednisone (Verified Adverse Reaction, Intermediate, HYPERGLYCEMIA, ) Uncoded Allergies: vinyl (Adverse Reaction, Unknown, RASH, 02/25/17) vinyl from cars - no latex allergy Physical Exam Vital Signs Date Time Temp Pulse Resp B/P (MAP) Pulse Ox O2 Delivery O2 Flow Rate FiO2 10/13/17 18:24 70 16 123/93 97 Room Air 10/13/17 17:27 20 10/13/17 15:31 36.7 78 22 110/99 98 Room Air Physical Exam CONSTITUTIONAL/VITAL SIGNS: Reviewed / noted above. GENERAL: Non-toxic in appearance. INTEGUMENTARY: Warm, dry, and [place]. HEAD: Normocephalic. EYES: without scleral icterus or trauma. ENT/OROPHARYNX: clear and moist. LYMPHADENOPATHY/NECK: Is supple without lymphadenopathy or meningismus. RESPIRATORY: Lungs clear and equal. CARDIOVASCULAR: Regular rate and rhythm. GI/ABDOMEN: Soft and nontender. No organomegaly or pulsatile mass. No rebound or guarding. Normal bowel sounds. EXTREMITIES: Warm and well perfused. Right leg reveals dark redness to the toes with a small distal eschar to the right second toe, buckle gluer erythema is noted to the dorsal aspect of the foot, significant tenderness and some mild ecchymosis and erythema to the right lateral heel region, very mild erythema and warmth to the anterior portion of the right leg. BACK: No CVA tenderness. NEUROLOGICAL: Intact without focal deficits. PSYCHIATRIC: normal affect. MUSCULOSKELETAL: Normally developed with good muscle tone. Medical Decision & Procedures ER Provider Diagnostic Interpretation: Radiology results as stated below per my review and radiologist interpretation: RIGHT LOWER EXTREMITY ARTERIAL DOPPLER STUDY FINDINGS: Normal velocities and biphasic to triphasic waveforms seen within the right common femoral and right superficial femoral arteries. Elevated velocity of 203 cm/s within the proximal right popliteal artery which also demonstrates monophasic waveform. This results in low velocity monophasic waveforms seen within the anterior tibial, posterior tibial, peroneal, and dorsalis pedis arteries. No areas of arterial occlusion identified. The right ankle-brachial index measured between 0.85 and 0.87. The left ankle-brachial measured between 0.96 and 1.1. IMPRESSION: 1. Focal area of hemodynamically significant stenosis seen within the right proximal popliteal artery as described above. 2. No areas of arterial occlusion. 3. Slightly abnormal right ankle-brachial index measured between 0.85 and 0.87. Normal left ankle-brachial index. Electronically signed by: Jj Solano M.D. 10/13/2017 6:50 PM ED Course 1518: Previous medical records were reviewed. The patient was evaluated in room C3. A complete history and physical examination was performed. 1536: I discussed the patient's case with Khushi MORAN for Vascular Surgery. She recommended that the patient has an arterial duplex and KELLY done. 1550: I reevaluated and updated the patient. I told them about the patient's treatment plan. 2020: On reevaluation, the patient is stable. I discussed the results and findings with the patient. She verbalized agreement of the treatment plan. The patient was discharged home. Medical Decision Differential diagnosis: Etiologies such as DVT, musculoskeletal, infection, joint effusion, trauma, lymphedema, idiopathic, CHF, as well as others were entertained.. This is a 72-year-old female who presents to the ED with a chief complaint of right foot pain. The patient had angioplasty 2 days ago at [facility]. She was told to come there today but she decided to come here instead. I spoke with the physician assistant bookkeeper who is taking care of the patient. She recommended lower extremity arterial Doppler studies. The patient does have a focal area of hemodynamically significant stenosis in the right proximal popliteal artery. There is no arterial occlusion. There is a slightly abnormal right ankle-brachial index. Normal left ankle-brachial index. The patient was told the results of the test. She does have pain medication. The patient is to follow-up with the vascular surgeon. She was given a copy of her results today to notify the doctor tomorrow of the results. Her exam is consistent with that of decreased perfusion although she states that her leg was cold previously. It is currently warm on exam. Other exam findings are noted above. Blood Pressure Screening Patient's blood pressure: Normal blood pressure Blood pressure disposition: Did not require urgent referral Consults Time Called: 1531 Consulting Physician: Khushi MORAN for Vascular Surgery. Returned Call: 1536 I discussed the patient's case with Khushi MORAN for Vascular Surgery. She recommended that the patient has an arterial duplex and KELLY done. Impression Primary Impression: Foot pain Additional Impression: Claudication Scribe Attestation The scribe's documentation has been prepared under my direction and personally reviewed by me in its entirety. I confirm that the note above accurately reflects all work, treatment, procedures, and medical decision making performed by me. Departure Information Dispostion Home / Self-Care Referrals Asael Jones M.D.(CINTHYA) (PCP) Forms HOME CARE DOCUMENTATION FORM, IMPORTANT VISIT INFORMATION, WORK / SCHOOL INSTRUCTIONS Patient Instructions My [facility] Additional Instructions Follow-up with your doctor for further care and evaluation in 1-2 days. Return to the emergency department for worsening or new symptoms or any concerns. You have been examined and treated today on an emergency basis only. This is not a substitute for, or an effort to provide, complete comprehensive medical care. It is impossible to recognize and treat all injuries or illnesses in a single emergency department visit. It is therefore important that you follow up closely with your doctor. Call as soon as possible for an appointment. Contact your doctor tomorrow with the results of your ultrasound today. Continue your current therapies. Problem Qualifiers
[2017-10-13 20:31] VITALS: BP 123/93; PULSE 70; TEMP 36.7; O2SAT 97
== END 2017-10-13 20:31 | disposition home or self-care (01) ==
LOC: EDBD 15:02 → C.EDC 15:03
DX: M79.671 Pain in right foot (principal); I73.9 Peripheral vascular disease, unspecified; I77.1 Stricture of artery; Z95.0 Presence of cardiac pacemaker; I10 Essential (primary) hypertension; J45.909 Unspecified asthma, uncomplicated; E11.9 Type 2 diabetes mellitus without complications; Z96.653 Presence of artificial knee joint, bilateral; Z98.51 Tubal ligation status; Z79.82 Long term (current) use of aspirin; Z79.4 Long term (current) use of insulin; Z79.84 Long term (current) use of oral hypoglycemic drugs; Z83.3 Family history of diabetes mellitus; Z82.49 Family history of ischemic heart disease and other diseases of the circulatory system; Z88.1 Allergy status to other antibiotic agents; Z88.8 Allergy status to other drugs, medicaments and biological substances; Z88.6 Allergy status to analgesic agent

== ENCOUNTER 2019-11-01 05:36 | Inpatient (IN) ==
[2019-11-01 06:28] LABS: Basophils # (auto) 0.04 K/uL (0-0.2); Basophils % (auto) 0.5 %; Eosinophils # (auto) 0.24 K/uL (0-0.5); Eosinophils % (auto) 2.9 %; Hemoglobin 12.7 g/dL (12.0-16.0); Immature Granulocytes # (auto) 0.02 K/uL (0.00-0.02); Immature Granulocytes % (auto) 0.2 %; Lymphocytes # (auto) 1.61 K/uL (1.2-3.4); Lymphocytes % (auto) 19.1 %; Mean Corpuscular Hgb Conc 31.8 g/dL (32-36); Mean Corpuscular Volume 91.3 fL (80-100); Mean Platelet Volume 9.8 fL (7.4-10.4); Monocytes # (auto) 0.76 K/uL (0.11-0.59); Neutrophils # (auto) 5.74 K/uL (1.4-6.5); Neutrophils % (auto) 68.3 %; Platelet Count 221 K/uL (130-400); RDW Coefficient of Variation 16.2 % (11.5-14.5); RDW Standard Deviation 53.6 fL (36.4-46.3); Red Blood Count 4.38 M/uL (4.2-5.4); White Blood Count 8.41 K/uL (4.8-10.8)
[2019-11-01 06:32] LABS: Alanine Aminotransferase 20 U/L (12-78); Albumin Level 3.1 gm/dl (3.4-5.0); Aspartate Aminotransferase 17 U/L (15-37); BUN Creatinine Ratio 14.4 (10-20); Blood Urea Nitrogen 18 mg/dl (7-18); Calcium 9.7 mg/dl (8.5-10.1); Carbon Dioxide 29 mmol/L (21-32); Chloride 103 mmol/L (98-107); Est GFR (African American) 48.6; Est GFR (Non-African American) 41.9; Glucose 108 mg/dl (70-99); Sodium 139 mmol/L (136-145)
[2019-11-01 06:36] LABS: Albumin Globulin Ratio 0.7 (0.9-2); Alkaline Phosphatase 56 U/L (45-117); Bilirubin,Total 0.5 mg/dl (0.2-1); Globulin 4.5 gm/dl (2.5-4.0); Total Protein 7.6 gm/dl (6.4-8.2); Troponin I < 0.015 ng/ml (0-0.045)
[2019-11-01 06:37] LABS: Partial Thromboplastin Ratio 0.9; Partial Thromboplastin Time 25.4 Seconds (21.0-31.0); Prothrombin Time 10.6 Seconds (9.0-12.0)
[2019-11-01 06:59] LABS: D Dimer 1100 ug/L FEU (0-500)
--- NOTE | 2019-11-01 07:23 | XRay Report ---
SINGLE VIEW CHEST CLINICAL HISTORY: Dyspnea. FINDINGS: An AP, portable, upright chest radiograph is compared to study dated 02/25/2017. The examina tion is degraded by portable technique and patient rotation. A 2-lead cardiac pacemaker is unchanged in position. The heart is enlarged noting atherosclerotic calcification of the thoracic aorta. There is pulmonary vascular congestion and mild interstitial edema. Small pleural effusions are suspected. There is bibasilar scarring/atelectasis. No pneumothorax is seen. The skeletal structures are osteope caleb. The bony thorax is grossly intact. IMPRESSION: Cardiomegaly and cardiac pacemaker with evidence of congestive failure and mild interstit ial edema. ACT 112: Negative or not required by law. Electronically signed by: Celestino Guerrero M.D. 11/01/2019 7:22 AM
[2019-11-01] MEDS ORDERED: OPTIRAY 320 125ml IV PRN (07:45)
--- NOTE | 2019-11-01 08:13 | CT Scan Report ---
CT angio chest PE protocol CLINICAL HISTORY: 74 years-old Female presenting with shortness of breath, clinical concern for pulmo nary embolus. TECHNIQUE: Multidetector CT angiography of the chest was performed after administration of intravenou s contrast. 3-D volumetric and/or maximum intensity projection (MIP) images were subsequently reconst ructed for review. IV contrast: 120 mL of Optiray 320. One or more dose lowering techniques were used consistent with the principles of ALARA (as low as reasonably achievable), including automatic expos ure control, mA or kV adjustment to individual patient size, and/or use of iterative reconstruction. COMPARISON: 05/07/2013. CT DOSE (mGy.cm): The estimated cumulative dose is 495.35 mGycm. FINDINGS: Certified Medical Asst topogram: Left subclavian pacer with leads to the right atrium and right ventricular apex. Pulmonary vasculature: The study is adequate for assessment of the pulmonary vascular tree. No filling defect within the pul monary arteries to suggest embolus. Main pulmonary artery is not enlarged. No flattening of the inter ventricular septum. No intracardiac filling defect. Reflux of contrast into the IVC and hepatic veins . This likely indicates elevated right heart pressure. Remaining chest: Soft tissues: Normal thyroid and thoracic inlet. Mildly prominent right hilar lymph nodes. Mild ather osclerosis of the thoracic aorta. Multichamber enlargement of the heart. Coronary artery calcificatio n. Pacer leads to the right atrial appendage and right ventricular apex. No pericardial or pleural ef fusion. Prominent splenic and hepatic arterial calcification. Lungs and airways: No pneumothorax. Central airways patent. Pulmonary arteries are not significantly enlarged relative to adjacent bronchi. Mild interlobular septal thickening suspected at the lung base s, right greater than left. Reticular subpleural opacities with a basilar predominance, right greater than left. Extensive mosaic attenuation. Focal peribronchovascular abnormality with internal calcifi cation in the superior segment of the right lower lobe similar to prior exam. There is also a morphol ogy of cavity formation with internal debris (series 4 image 149). Mild bronchiectasis may be present in the superior segment. Calcified granulomata also noted in the superior segment of the right lower lobe. Changes have progressed since 2013. Musculoskeletal: Degenerative changes of the spine. IMPRESSION: 1. No evidence of pulmonary embolus. 2. Evidence of elevated right heart pressure in the setting of cardiomegaly. No jack pulmonary emmanuel a. 3. Interval progression of peribronchovascular consolidative changes with calcified granuloma in the superior segment of the right lower lobe. These findings suggest a chronic granulomatous disease, wh ich may be mildly progressive since 2013. Ongoing infection is not excluded. 4. Findings suggest underlying interstitial lung disease with the prominence of mosaic attenuation, subpleural reticular opacities, and interlobular septal thickening suggesting a "head cheese" sign. T his suggests hypersensitivity pneumonitis, likely chronic. Differential consideration includes a mixe d infiltrative and obstructive process such as sarcoidosis or an atypical infection. Pulmonary consul tation to be considered. ACT 112: Negative or not required by law. Electronically signed by: Ganesh Angel M.D. 11/01/2019 8:11 AM
--- NOTE | 2019-11-01 08:22 | Emergency Department Note ---
Entered by Karen Mabry acting as a scribe for History of Present Illness General Chief complaint: Shortness of Breath/Dyspnea Stated complaint: BREATHING DIFFICULTY Time Seen by Provider: 11/01/19 05:50 Source: patient History of Present Illness Provider complaint: shortness of breath Onset (ago): week(s) 1 Location: chest Radiation: non-radiation Pain Consistency: + intermittent Maximum Pain Intensity: 3 Relieved By: + none Associated symptoms: + denies other symptoms; no chest pain, no cough and no fever/chills The patient is a 74 y/o female who presents to the emergency department for evaluation of intermittent worsening shortness of breath that began a week ago. The patient states that the shortness of breath began on Tuesday of last week but became better temporally on Tuesday. She notes that on Tuesday the shortness of breath came back and since then has been getting worse. The patient reports that she saw her PCP on Tuesday and they placed her on clarithromycin. She states that the medication did not help and within the past 24 hours she has actually felt worse. The patient denies chest pain, abdominal pain, cough, fever, and any other symptoms. Home Medications Home Medications Medication Instructions Recorded Confirmed Type aspirin 81 mg PO DAILY 10/01/19 11/01/19 History carvedilol 12.5 mg PO BID 10/01/19 11/01/19 History clopidogrel 75 mg PO DAILY 10/01/19 11/01/19 History cyanocobalamin (vitamin B-12) 100 mcg PO DAILY 10/01/19 11/01/19 History insulin glargine [Lantus Solostar 65 unit SUBCUT BID 10/01/19 11/01/19 History U-100 Insulin] loratadine 10 mg PO DAILY PRN 10/01/19 11/01/19 History metformin 1,000 mg PO BID 10/01/19 11/01/19 History mometasone [Asmanex HFA] 2 inh INHALATION DAILY 10/01/19 11/01/19 History montelukast 10 mg PO DAILY 10/01/19 11/01/19 History multivitamin with minerals 1 tab PO DAILY 10/01/19 11/01/19 History [Multiple Vitamin-Minerals] rosuvastatin 40 mg PO DAILY 10/01/19 11/01/19 History sitagliptin [Januvia] 50 mg PO DAILY 10/01/19 11/01/19 History albuterol sulfate 2.5 mg INHALATION Q4H PRN 11/01/19 11/01/19 History clarithromycin 500 mg PO BID 11/01/19 11/01/19 History furosemide [Lasix] 20 mg PO DAILY 11/01/19 11/01/19 History Allergies Allergy/AdvReac Type Severity Reaction Status Date / Time fluticasone Allergy Severe WATER ON Verified 11/01/19 06:44 LUNGS salmeterol Allergy Severe WATER ON Verified 11/01/19 06:44 LUNGS propoxyphene Allergy Mild FROM Verified 11/01/19 06:44 DARVOCET benzocaine Allergy Unknown ? Verified 11/01/19 06:44 mold Allergy Unknown uknown Verified 11/01/19 06:44 prednisone AdvReac Intermediate HYPERGLYCEM Verified 11/01/19 06:44 IA vinyl AdvReac Unknown RASH Uncoded 11/01/19 06:44 Past Med/Surg History Medical History Asthma Asthma exacerbation (Acute) Bradycardia (Acute) Chronic combined systolic and diastolic heart failure CKD (chronic kidney disease) (Inactive) CKD (chronic kidney disease), stage III Claudication (Inactive) Complete heart block (Acute 06/14/14) Dehydration (Acute) Diabetes mellitus, type II, insulin dependent Dyslipidemia HTN (hypertension) Hyperglycemia (Acute) Morbid obesity Nonischemic cardiomyopathy Pacemaker Physical deconditioning (Inactive) PVD (peripheral vascular disease) Surgical History H/O tubal ligation History of cardiac cath 2014 - normal coronary arteries; Dr Jorgensen at [facility] History of carpal tunnel release History of cataract removal with insertion of prosthetic lens History of revascularization procedure of lower extremity fem/pop artery revascularization RLE; 09/2017; Dr Gill at [facility] History of total knee arthroplasty 2005; bilateral Family History Mother Leukemia Son Asthma Brother Stroke Social History Preferred Language: Luxembourgish 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 and A total of 10 systems reviewed and were otherwise negative Physical Exam Vital Signs Vital Signs - 24 hr 11/01/19 07:49 11/01/19 09:00 Pulse Rate [Finger] 63 69 Pulse Rhythm [Finger] Regular Regular Respiratory Rate 20 20 Respiratory Effort / Characteristics Spontaneous Spontaneous Respiratory Pattern Regular Regular Blood Pressure [Left Arm] 147/82 H 164/75 H Blood Pressure Mean [Left Arm] 103 104 Pulse Oximetry 100 99 Oxygen Delivery Method Nasal Cannula Nasal Cannula Oxygen Flow Rate 3 3 HEENT: Head - normocephalic and atraumatic. Pupils are equal, round, and reactive to light. Extraocular eye muscles are intact, and sclera are anicteric. Nose - moist nasal mucosa without discharge. Mouth - moist buccal mucosa. Oropharynx is nonerythematous and there is no tonsillar exudate or edema noted. Neck: Supple; no JVD or cervical lymphadenopathy. Heart: Regular rate and rhythm. There is a normal S1 and S2 with no murmurs, clicks, or gallops appreciated. Lungs: Distant lung sounds secondary to body habitus. Abdomen: Soft, completely nontender, nondistended, with good bowel sounds. There are no palpable pulsatile masses or hepatosplenomegaly. There is no guarding, rigidity, or rebound noted. Extremities: No evidence of cyanosis, clubbing, or edema. There are easily palpable peripheral pulses. Skin: warm and dry with good turgor and no rashes. Course Course 0554: Past medical records reviewed. The patient was evaluated in room A10. A complete history and physical exam was performed. An IV lock was initiated and labs were drawn as below. An order was placed for continuous cardiac monitoring. The patient was in a normal sinus rhythm at a rate of 70. A twelve-lead EKG was obtained as described below 0703: I checked on the patient and updated her on the lab results. [place] will go to [place]. 0745: The patient went for CT scan of her chest 0810: I reviewed the results of the CT scan of the chest with the patient and her . I explained to her that we will have her evaluated by the hospitalist service for admission to the hospital. Administered Medications Acetaminophen (Tylenol) 650 mg PO Q4H PRN PRN Reason: Pain or Fever Stop: 12/01/19 11:37 Last Admin: 11/02/19 05:47 Dose: 650 mg Documented by: [id number] Admin: 11/02/19 00:16 Dose: 650 mg Documented by: [id number] Admin: 11/01/19 16:15 Dose: 650 mg Documented by: [id number] Aspirin (Ecotrin Ectab) 81 mg PO DAILY [facility] Stop: 12/01/19 11:37 Last Admin: 11/01/19 12:52 Dose: 81 mg Documented by: [id number] Carvedilol (Coreg) 12.5 mg PO BID [facility] Stop: 12/01/19 11:37 Last Admin: 11/01/19 20:05 Dose: 12.5 mg Documented by: [id number] Admin: 11/01/19 12:52 Dose: 12.5 mg Documented by: [id number] Clopidogrel Bisulfate (Plavix) 75 mg PO DAILY [facility] Stop: 12/01/19 11:37 Last Admin: 11/01/19 12:52 Dose: 75 mg Documented by: [id number] Heparin Sodium (Porcine) (Heparin Sodium (Porcine)) 5,000 units SQ Q8 [facility] Stop: 12/01/19 13:59 Last Admin: 11/02/19 05:33 Dose: 5,000 units Documented by: [id number] Cosigned by: [id number] Admin: 11/01/19 21:08 Dose: 5,000 units Documented by: [id number] Cosigned by: [id number] Admin: 11/01/19 12:54 Dose: 5,000 units Documented by: [id number] Cosigned by: [id number] Furosemide 40 mg/ Syringe 4 mls @ 4 mls/min IV BID17 [facility] Stop: 12/01/19 17:59 Last Admin: 11/01/19 17:50 Dose: 4 mls/min Documented by: [id number] Promethazine HCl 12.5 mg/ (Sodium Chloride) 50.5 mls @ 202 mls/hr IV Q6H PRN PRN Reason: Nausea And Vomiting Stop: 12/01/19 18:00 Last Infusion: 11/01/19 19:12 Dose: 0 mls/hr Documented by: [id number] Admin: 11/01/19 18:22 Dose: 202 mls/hr Documented by: [id number] Insulin Aspart (Novolog Flexpen) 0 units SC ACHS [facility] Stop: 12/01/19 11:59 Last Admin: 11/01/19 21:07 Dose: Not Given Documented by: [id number] Cosigned by: [id number] Admin: 11/01/19 18:17 Dose: Not Given Documented by: [id number] Cosigned by: [id number] Admin: 11/01/19 12:53 Dose: 2 units Documented by: [id number] Cosigned by: [id number] Insulin Glargine (Lantus Solostar Pen) 0 units SC BID [facility]; Protocol Stop: 12/01/19 11:59 Last Admin: 11/01/19 21:05 Dose: 20 units Documented by: [id number] Cosigned by: [id number] Montelukast Sodium (Singulair) 10 mg PO DAILY [facility] Stop: 12/01/19 11:37 Last Admin: 11/01/19 12:52 Dose: 10 mg Documented by: [id number] Promethazine HCl (Phenergan) 12.5 mg PO Q6H PRN PRN Reason: Nausea And Vomiting Stop: 12/01/19 19:59 Last Admin: 11/01/19 21:15 Dose: 12.5 mg Documented by: [id number] Rosuvastatin Calcium (Crestor) 40 mg PO DAILY [facility] Stop: 12/01/19 11:37 Last Admin: 11/01/19 12:52 Dose: 40 mg Documented by: [id number] Discontinued Medications Furosemide (Lasix) 40 mg IV NOW STA Stop: 11/01/19 09:36 Last Admin: 11/01/19 10:45 Dose: 40 mg Documented by: [id number] Ibuprofen (Motrin) 800 mg PO NOW STA Stop: 11/01/19 17:58 Last Admin: 11/01/19 19:18 Dose: 800 mg Documented by: [id number] Insulin Glargine (Lantus Solostar Pen) 0 units SC BID [facility] Stop: 12/01/19 11:59 Last Admin: 11/01/19 13:12 Dose: Not Given Documented by: [id number] Ioversol (Optiray 320 125ml) 120 ml IV ONCE PRN PRN Reason: Interaction Checking Stop: 11/05/19 07:44 Last Admin: 11/01/19 07:45 Dose: 120 ml Documented by: [id number] Oxycodone HCl (Roxicodone Immediate Rel) 5 mg PO NOW STA Stop: 11/01/19 20:01 Last Admin: 11/01/19 20:04 Dose: 5 mg Documented by: [id number] Medical Decision Making Differential Diagnosis Differential diagnosis: pneumonia, CHF, PE, Anxiety. Medical Records Attestation: I reviewed the patient's medical records. Home Medications Current Medication List: was personally reviewed by me Laboratory Data Attestation: I reviewed the patient's lab results. Result diagrams: 11/02/19 06:35 11/02/19 06:35 Lab Results 11/01/19 11/01/19 11/01/19 Range/Units 06:00 06:00 06:00 WBC 8.41 (4.8-10.8) K/uL RBC 4.38 (4.2-5.4) M/uL Hgb 12.7 (12.0-16.0) g/dL Hct 40.0 (37-47) % MCV 91.3 (80-100) fL MCH 29.0 (25-34) pg MCHC 31.8 L (32-36) g/dL RDW Std Deviation 53.6 H (36.4-46.3) fL RDW Coeff of Javier 16.2 H (11.5-14.5) % Plt Count 221 (130-400) K/uL MPV 9.8 (7.4-10.4) fL Immature Gran % (Auto) 0.2 % Neut % (Auto) 68.3 % Lymph % (Auto) 19.1 % [place] % (Auto) 9.0 % Eos % (Auto) 2.9 % Baso % (Auto) 0.5 % Immature Gran # (Auto) 0.02 (0.00-0.02) K/uL Neut # (Auto) 5.74 (1.4-6.5) K/uL Lymph # (Auto) 1.61 (1.2-3.4) K/uL [place] # (Auto) 0.76 H (0.11-0.59) K/uL Eos # (Auto) 0.24 (0-0.5) K/uL Baso # (Auto) 0.04 (0-0.2) K/uL PT 10.6 (9.0-12.0) Seconds INR 1.0 (0.9-1.1) APTT 25.4 (21.0-31.0) Seconds PTT Ratio 0.9 D-Dimer 1100 H* (0-500) ug/L FEU Sodium 139 (136-145) mmol/L Potassium 4.0 (3.5-5.1) mmol/L Chloride 103 (98-107) mmol/L Carbon Dioxide 29 (21-32) mmol/L Anion Gap 7.0 (3-11) BUN 18 (7-18) mg/dl Creatinine 1.26 H (0.6-1.2) mg/dl Est Cr Clr Drug Dosing Not Reportable Est GFR ( Amer) 48.6 Est GFR (Non-Af Amer) 41.9 BUN/Creatinine Ratio 14.4 (10-20) Glucose 108 H (70-99) mg/dl Calcium 9.7 (8.5-10.1) mg/dl Total Bilirubin 0.5 (0.2-1) mg/dl AST 17 (15-37) U/L ALT 20 (12-78) U/L Alkaline Phosphatase 56 (45-117) U/L Troponin I < 0.015 (0-0.045) ng/ml NT-Pro-B Natriuret Pep (0-900) pg/ml Total Protein 7.6 (6.4-8.2) gm/dl Albumin 3.1 L (3.4-5.0) gm/dl Globulin 4.5 H (2.5-4.0) gm/dl Albumin/Globulin Ratio 0.7 L (0.9-2) Procalcitonin (0-0.5) ng/ml Urine Color Urine Appearance (Clear) Urine pH (4.5-7.5) Ur Specific [place] (1.000-1.030) Urine Protein (Negative) Urine Glucose (UA) (Negative) Urine Ketones (Negative) Urine Blood (Negative) Urine Nitrite (Negative) Urine Bilirubin (Negative) Urine Urobilinogen (Negative) Ur Leukocyte Esterase (Negative) Hepatitis C Ab Screen (Neg) Influenza Type A (PCR) (Neg) Influenza Type B (PCR) (Neg) 11/01/19 11/01/19 11/01/19 Range/Units 06:00 06:00 06:00 WBC (4.8-10.8) K/uL RBC (4.2-5.4) M/uL Hgb (12.0-16.0) g/dL Hct (37-47) % MCV (80-100) fL MCH (25-34) pg MCHC (32-36) g/dL RDW Std Deviation (36.4-46.3) fL RDW Coeff of Javier (11.5-14.5) % Plt Count (130-400) K/uL MPV (7.4-10.4) fL Immature Gran % (Auto) % Neut % (Auto) % Lymph % (Auto) % [place] % (Auto) % Eos % (Auto) % Baso % (Auto) % Immature Gran # (Auto) (0.00-0.02) K/uL Neut # (Auto) (1.4-6.5) K/uL Lymph # (Auto) (1.2-3.4) K/uL [place] # (Auto) (0.11-0.59) K/uL Eos # (Auto) (0-0.5) K/uL Baso # (Auto) (0-0.2) K/uL PT (9.0-12.0) Seconds INR (0.9-1.1) APTT (21.0-31.0) Seconds PTT Ratio D-Dimer (0-500) ug/L FEU Sodium (136-145) mmol/L Potassium (3.5-5.1) mmol/L Chloride (98-107) mmol/L Carbon Dioxide (21-32) mmol/L Anion Gap (3-11) BUN (7-18) mg/dl Creatinine (0.6-1.2) mg/dl Est Cr Clr Drug Dosing Est GFR ( Amer) Est GFR (Non-Af Amer) BUN/Creatinine Ratio (10-20) Glucose (70-99) mg/dl Calcium (8.5-10.1) mg/dl Total Bilirubin (0.2-1) mg/dl AST (15-37) U/L ALT (12-78) U/L Alkaline Phosphatase (45-117) U/L Troponin I (0-0.045) ng/ml NT-Pro-B Natriuret Pep 717 (0-900) pg/ml Total Protein (6.4-8.2) gm/dl Albumin (3.4-5.0) gm/dl Globulin (2.5-4.0) gm/dl Albumin/Globulin Ratio (0.9-2) Procalcitonin < 0.05 (0-0.5) ng/ml Urine Color Urine Appearance (Clear) Urine pH (4.5-7.5) Ur Specific [place] (1.000-1.030) Urine Protein (Negative) Urine Glucose (UA) (Negative) Urine Ketones (Negative) Urine Blood (Negative) Urine Nitrite (Negative) Urine Bilirubin (Negative) Urine Urobilinogen (Negative) Ur Leukocyte Esterase (Negative) Hepatitis C Ab Screen Neg (Neg) Influenza Type A (PCR) (Neg) Influenza Type B (PCR) (Neg) 11/01/19 11/01/19 Range/Units 08:27 09:00 WBC (4.8-10.8) K/uL RBC (4.2-5.4) M/uL Hgb (12.0-16.0) g/dL Hct (37-47) % MCV (80-100) fL MCH (25-34) pg MCHC (32-36) g/dL RDW Std Deviation (36.4-46.3) fL RDW Coeff of Javier (11.5-14.5) % Plt Count (130-400) K/uL MPV (7.4-10.4) fL Immature Gran % (Auto) % Neut % (Auto) % Lymph % (Auto) % [place] % (Auto) % Eos % (Auto) % Baso % (Auto) % Immature Gran # (Auto) (0.00-0.02) K/uL Neut # (Auto) (1.4-6.5) K/uL Lymph # (Auto) (1.2-3.4) K/uL [place] # (Auto) (0.11-0.59) K/uL Eos # (Auto) (0-0.5) K/uL Baso # (Auto) (0-0.2) K/uL PT (9.0-12.0) Seconds INR (0.9-1.1) APTT (21.0-31.0) Seconds PTT Ratio D-Dimer (0-500) ug/L FEU Sodium (136-145) mmol/L Potassium (3.5-5.1) mmol/L Chloride (98-107) mmol/L Carbon Dioxide (21-32) mmol/L Anion Gap (3-11) BUN (7-18) mg/dl Creatinine (0.6-1.2) mg/dl Est Cr Clr Drug Dosing Est GFR ( Amer) Est GFR (Non-Af Amer) BUN/Creatinine Ratio (10-20) Glucose (70-99) mg/dl Calcium (8.5-10.1) mg/dl Total Bilirubin (0.2-1) mg/dl AST (15-37) U/L ALT (12-78) U/L Alkaline Phosphatase (45-117) U/L Troponin I (0-0.045) ng/ml NT-Pro-B Natriuret Pep (0-900) pg/ml Total Protein (6.4-8.2) gm/dl Albumin (3.4-5.0) gm/dl Globulin (2.5-4.0) gm/dl Albumin/Globulin Ratio (0.9-2) Procalcitonin (0-0.5) ng/ml Urine Color Yellow Urine Appearance Clear (Clear) Urine pH 5.5 (4.5-7.5) Ur Specific [place] 1.029 (1.000-1.030) Urine Protein Negative (Negative) Urine Glucose (UA) Negative (Negative) Urine Ketones Negative (Negative) Urine Blood Negative (Negative) Urine Nitrite Negative (Negative) Urine Bilirubin Negative (Negative) Urine Urobilinogen Negative (Negative) Ur Leukocyte Esterase Negative (Negative) Hepatitis C Ab Screen (Neg) Influenza Type A (PCR) Neg for Influ A (Neg) Influenza Type B (PCR) Neg for Influ B (Neg) Imaging Data Radiologist's Impression: Radiology results as stated below per my review and the radiologist's interpretation: SINGLE VIEW CHEST CLINICAL HISTORY: Dyspnea. FINDINGS: An AP, portable, upright chest radiograph is compared to study dated 02/25/2017. The examination is degraded by portable technique and patient rotation. A 2-lead cardiac pacemaker is unchanged in position. The heart is enlarged noting atherosclerotic calcification of the thoracic aorta. There is pulmonary vascular congestion and mild interstitial edema. Small pleural effusions are suspected. There is bibasilar scarring/atelectasis. No pneumothorax is seen. The skeletal structures are osteopenic. The bony thorax is grossly intact. IMPRESSION: Cardiomegaly and cardiac pacemaker with evidence of congestive failure and mild interstitial edema. ACT 112: Negative or not required by law. Electronically signed by: Celestino Guerrero M.D. 11/01/2019 7:[address] angio chest PE protocol CLINICAL HISTORY: 74 years-old Female presenting with shortness of breath, clinical concern for pulmonary embolus. TECHNIQUE: Multidetector CT angiography of the chest was performed after administration of intravenous contrast. 3-D volumetric and/or maximum intensity projection (MIP) images were subsequently reconstructed for review. IV contrast: 120 mL of Optiray 320. One or more dose lowering techniques were used consistent with the principles of ALARA (as low as reasonably achievable), including automatic exposure control, mA or kV adjustment to individual patient size, and/or use of iterative reconstruction. COMPARISON: 05/07/2013. CT DOSE (mGy.cm): The estimated cumulative dose is 495.35 mGycm. FINDINGS: Pole Setter topogram: Left subclavian pacer with leads to the right atrium and right ventricular apex. Pulmonary vasculature: The study is adequate for assessment of the pulmonary vascular tree. No filling defect within the pulmonary arteries to suggest embolus. Main pulmonary artery is not enlarged. No flattening of the interventricular septum. No intracardiac filling defect. Reflux of contrast into the IVC and hepatic veins. This likely indicates elevated right heart pressure. Remaining chest: Soft tissues: Normal thyroid and thoracic inlet. Mildly prominent right hilar lymph nodes. Mild atherosclerosis of the thoracic aorta. Multichamber enlargement of the heart. Coronary artery calcification. Pacer leads to the right atrial appendage and right ventricular apex. No pericardial or pleural effusion. Prominent splenic and hepatic arterial calcification. Lungs and airways: No pneumothorax. Central airways patent. Pulmonary arteries are not significantly enlarged relative to adjacent bronchi. Mild interlobular septal thickening suspected at the lung bases, right greater than left. Reticular subpleural opacities with a basilar predominance, right greater than left. Extensive mosaic attenuation. Focal peribronchovascular abnormality with internal calcification in the superior segment of the right lower lobe similar to prior exam. There is also a morphology of cavity formation with internal debris (series 4 image 149). Mild bronchiectasis may be present in the superior segment. Calcified granulomata also noted in the superior segment of the right lower lobe. Changes have progressed since 2013. Musculoskeletal: Degenerative changes of the spine. IMPRESSION: 1. No evidence of pulmonary embolus. 2. Evidence of elevated right heart pressure in the setting of cardiomegaly. No jack pulmonary edema. 3. Interval progression of peribronchovascular consolidative changes with calcified granuloma in the superior segment of the right lower lobe. These findings suggest a chronic granulomatous disease, which may be mildly progressive since 2013. Ongoing infection is not excluded. 4. Findings suggest underlying interstitial lung disease with the prominence of mosaic attenuation, subpleural reticular opacities, and interlobular septal thickening suggesting a "head cheese" sign. This suggests hypersensitivity pneumonitis, likely chronic. Differential consideration includes a mixed infilt rative and obstructive process such as sarcoidosis or an atypical infection. Pulmonary consultation to be considered. ACT 112: Negative or not required by law. Electronically signed by: Ganesh Angel M.D. 11/01/2019 8:11 AM MDM Narrative The patient is a 74 y/o female who presents to the emergency department for evaluation of intermittent worsening shortness of breath that began a week ago. The patient has a history of asthma. She is currently taking a prescription of clarithromycin with no relief of her symptoms. The patient does become hypoxic depending on her positioning seated versus lying down and with any type of exertion. The patient had an elevated d-dimer but CT scan of the chest was negative for PE. CT scan of the chest did reveal granulomatous and interstitial disease. The patient has not had any evaluation or follow-up with pulmonary medicine. Given her worsening dyspnea and hypoxia, I feel she would require acute evaluation by pulmonary medicine. I discussed the case with the hospitalist and they will evaluate for further management. Impression & Plan Acute dyspnea, Granulomatous interstitial lung disease Discharge Plan Visit Data *Final* Discharge Date/Time: 11/01/19 11:24 Chief Complaint: Shortness of Breath/Dyspnea Stated Complaint: BREATHING DIFFICULTY ED Provider: Corrie Worthy Discharge Problem: Acute dyspnea, Granulomatous interstitial lung disease Patient Disposition: Admitted As Inpatient Discharge Instructions Interventions: ED Discharge Assessment Last Done: 11/01/19 11:24 The scribe's documentation has been prepared under my direction and personally reviewed by me in its entirety. I confirm that the note above accurately reflects all work, treatment, procedures, and medical decision making performed by me.
[2019-11-01 08:42] LABS: Appearance Urine Clear (Clear); Bilirubin Urine Negative (Negative); Blood Urine Negative (Negative); Color Urine Yellow; Glucose Urine UA Negative (Negative); Ketones Urine Negative (Negative); Leukocyte Esterase Urine Negative (Negative); Nitrite Urine Negative (Negative); Protein Urine Negative (Negative); Specific Gravity Urine 1.029 (1.000-1.030); Urobilinogen Urine Negative (Negative); pH Urine 5.5 (4.5-7.5)
[2019-11-01] MEDS ORDERED: FUROSEMIDE 40 MG/4 ML VIAL IV STA (09:35)
[2019-11-01 09:56] LABS: Influenza A virus by PCR Neg for Influ A (Neg); Influenza B virus by PCR Neg for Influ B (Neg)
--- NOTE | 2019-11-01 10:01 | History & Physical Report ---
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 Was not taking daily lasix. Denies fever/chills. Has chronic intermittent nonproductive cough. In ER pt Afebrile, P: 63, R: 18, BP: 145/61 96% on RA down to 88% on RA with ambulation up to 100% on 3L NC. No leukocytosis, negative influenza swab, negative troponin. Paced rhythm on EKG. BNP: 717 D-Dimer: 1100 CTA CHEST: No PE Pt with signs and symptoms of fluid overload. -Lasix 40mg daily -Monitor I&O's, daily weights, low sodium diet -Echo -Supplemental oxygen as needed -Will hold on trending troponin secondary to ongoing SOB, no CP -Monitor CBC, BMP -Cardiology consult (4) Granulomatous interstitial lung disease: CTA CHEST 1. No evidence of pulmonary embolus. 2. Evidence of elevated right heart pressure in the setting of cardiomegaly. No jack pulmonary edema. 3. Interval progression of peribronchovascular consolidative changes with calcified granuloma in the superior segment of the right lower lobe. These findings suggest a chronic granulomatous disease, which may be mildly progressive since 2012. Ongoing infection is not excluded. 4. Findings suggest underlying interstitial lung disease with the prominence of mosaic attenuation, subpleural reticular opacities, and interlobular septal thickening suggesting a "head cheese" sign. This suggests hypersensitivity pneumonitis, likely chronic. Differential consideration includes a mixed infiltrative and obstructive process such as sarcoidosis or an atypical infection. Pulmonary consultation to be considered. 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 Cr: 1.23 in 09/2019 and 1.4 in 2018 -Monitor renal functions -Avoid nephrotoxic agents when possible (9) HTN (hypertension): -Continue carvedilol -Monitor BP (10) Dyslipidemia: -Continue statin (11) PVD (peripheral vascular disease): S/P right fempop revascularization in 2018 -Continue Plavix (12) Morbid obesity: BMI: 44 -Lifestyle modifications recommended DVT Prophylaxis -Heparin SQ Full Code as per discussion with pt Follows with Dr Jones for routine care Pt was seen and care coordinated with Dr Arauz. 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 History obtained from patient and pt's . Pt poor historian. Patient states has had worsening shortness of breath with exertion over the past month with increased shortness of breath over the past week. Reports orthopnea x couple of weeks. Having BLE edema. Has not been taking Lasix 20 mg daily as she did not want to urinate frequently. Patient reports occasional cough primarily when exposed to cold air. denies any chest pain, palpitations. Denies any fevers chills. Reports chronic intermittent nasal congestion and previously used Astelin as needed. Patient states that she used her albuterol nebulizer 3-4 times over the past week without any relief. Denies recent travel. Reports great-grandson had bronchitis 2 weeks ago. Patient seen at PCPs office 10/30/2019 for shortness of breath, lower extremity edema and was instructed to restart her daily Lasix and was started on clarithromycin. Patient states is taking 2 doses Lasix and has noticed some decreased BLE edema. Continues with shortness of breath. Denies diaphoresis, N/V/D/C, KOHLI, dizziness, syncope, vision changes, neck pain, sore throat, choking, otalgia, abdominal pain, paresthesias, weakness, rashes, urinary symptoms. History echo 05/2017: EF: 43%, grade 1 diastolic dysfunction, apical akinesis/dyskinesis. Akinesis of anterior, anterior septal and inferior septal [place]. Mild to moderate hypokinesis of anterolateral, inferior lateral and inferior [place]. No significant valvular pathology History cardiac catheterization 2014 with normal coronary arteries, LV end- diastolic pressure high. Outpatient CT Thorax in 06/2007: IMPRESSION: Evidence of prior granulomatous disease with a calcified right hilar lymph node as well as calcified granulomas in the right lower lobe, liver, and spleen. 2.Mild emphysematous changes. Allergies Allergy/AdvReac Type Severity Reaction Status Date / Time fluticasone Allergy Severe WATER ON Verified 11/01/19 06:44 LUNGS salmeterol Allergy Severe WATER ON Verified 11/01/19 06:44 LUNGS propoxyphene Allergy Mild FROM Verified 11/01/19 06:44 DARVOCET benzocaine Allergy Unknown ? Verified 11/01/19 06:44 mold Allergy Unknown uknown Verified 11/01/19 06:44 prednisone AdvReac Intermediate HYPERGLYCEM Verified 11/01/19 06:44 IA vinyl AdvReac Unknown RASH Uncoded 11/01/19 06:44 Home Medications Home Medications Medication Instructions Recorded Confirmed Type aspirin 81 mg PO DAILY 10/01/19 11/01/19 History carvedilol 12.5 mg PO BID 10/01/19 11/01/19 History clopidogrel 75 mg PO DAILY 10/01/19 11/01/19 History cyanocobalamin (vitamin B-12) 100 mcg PO DAILY 10/01/19 11/01/19 History insulin glargine [Lantus Solostar 65 unit SUBCUT BID 10/01/19 11/01/19 History U-100 Insulin] loratadine 10 mg PO DAILY PRN 10/01/19 11/01/19 History metformin 1,000 mg PO BID 10/01/19 11/01/19 History mometasone [Asmanex HFA] 2 inh INHALATION DAILY 10/01/19 11/01/19 History montelukast 10 mg PO DAILY 10/01/19 11/01/19 History multivitamin with minerals 1 tab PO DAILY 10/01/19 11/01/19 History [Multiple Vitamin-Minerals] rosuvastatin 40 mg PO DAILY 10/01/19 11/01/19 History sitagliptin [Januvia] 50 mg PO DAILY 10/01/19 11/01/19 History albuterol sulfate 2.5 mg INHALATION Q4H PRN 11/01/19 11/01/19 History clarithromycin 500 mg PO BID 11/01/19 11/01/19 History furosemide [Lasix] 20 mg PO DAILY 11/01/19 11/01/19 History Past Med/Surg History Medical History Asthma Asthma exacerbation (Acute) Bradycardia (Acute) Chronic combined systolic and diastolic heart failure CKD (chronic kidney disease) (Inactive) CKD (chronic kidney disease), stage III Claudication (Inactive) Complete heart block (Acute 06/14/14) Dehydration (Acute) Diabetes mellitus, type II, insulin dependent Dyslipidemia HTN (hypertension) Hyperglycemia (Acute) Morbid obesity Nonischemic cardiomyopathy Pacemaker Physical deconditioning (Inactive) PVD (peripheral vascular disease) Surgical History H/O tubal ligation History of cardiac cath 2014 - normal coronary arteries; Dr Jorgensen at [facility] History of carpal tunnel release History of cataract removal with insertion of prosthetic lens History of revascularization procedure of lower extremity fem/pop artery revascularization RLE; 09/2017; Dr Gill at [facility] History of total knee arthroplasty 2005; bilateral Family History Mother Leukemia Son Asthma Brother Stroke Social History Preferred Language: [place]ijani Communication Ability: Effective 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 Beliefs That Will Affect Care: None Current Living Situation: Spouse Other Information That Helps Us Care for You: No Feels Safe at Home: Yes Safety Concerns: Feels Safe At This Time Smoking Status: Never smoker Do You Dip or Chew Tobacco: No ; Second Hand Exposure: No ; Tobacco Cessation Education Requested by Patient: No Hx Alcohol Use: Yes Alcohol Intake Frequency: Rarely Hx Substance Use: No Review of Systems Review of Systems: All systems reviewed & are unremarkable except as noted in HPI & below Physical Exam Physical Exam: General: no acute distress, obese Head: normocephalic, atraumatic Eyes: PERRL, EOM's intact, conjunctiva non-injected, anicteric ENT: normal inspection external ears, nose, mucous membranes moist Neck: supple, trachea midline Lungs: no respiratory distress currently on 3L oxygen via nasal cannula with sats at 99% at rest, diminished breath sounds, faint rales bases CV: RRR, no murmur, no JVD appreciated but difficult to assess with body habitus, 1-2+ pretibial edema Abd: normal BS, soft, protuberant, non-tender Ext: no cyanosis, no calf tenderness Neuro: A&O x 3, no focal deficits noted, normal affect Skin: warm, dry Results & Data Vital Signs (Past 12 Hours) Vital Signs Temp Pulse Pulse Resp BP BP Pulse Ox 11/01/19 09:00 69 20 164/75 H 99 11/01/19 07:49 63 20 147/82 H 100 11/01/19 07:01 94 11/01/19 07:00 88 L 11/01/19 06:28 64 64 20 124/95 94 11/01/19 05:40 36.4 C L 63 18 145/61 H 96 Laboratory Results Short CBC 11/01/19 Range/Units 06:00 WBC 8.41 (4.8-10.8) K/uL Hgb 12.7 (12.0-16.0) g/dL Hct 40.0 (37-47) % Plt Count 221 (130-400) K/uL BMP 11/01/19 06:00 Sodium 139 Potassium 4.0 Chloride 103 Carbon Dioxide 29 BUN 18 Creatinine 1.26 H Glucose 108 H Calcium 9.7 Cardiac Enzymes 11/01/19 Range/Units 06:00 Troponin I < 0.015 (0-0.045) ng/ml Liver Function 11/01/19 Range/Units 06:00 Total Bilirubin 0.5 (0.2-1) mg/dl AST 17 (15-37) U/L ALT 20 (12-78) U/L Alkaline Phosphatase 56 (45-117) U/L Albumin 3.1 L (3.4-5.0) gm/dl Urine 11/01/19 Range/Units 08:27 Urine Color Yellow Urine Appearance Clear (Clear) Urine pH 5.5 (4.5-7.5) Ur Specific [place] 1.029 (1.000-1.030) Urine Protein Negative (Negative) Urine Glucose (UA) Negative (Negative) Diagnostic Findings CXR: IMPRESSION: Cardiomegaly and cardiac pacemaker with evidence of congestive failure and mild interstitial edema. CTA CHEST: IMPRESSION: 1. No evidence of pulmonary embolus. 2. Evidence of elevated right heart pressure in the setting of cardiomegaly. No jack pulmonary edema. 3. Interval progression of peribronchovascular consolidative changes with calcified granuloma in the superior segment of the right lower lobe. These findings suggest a chronic granulomatous disease, which may be mildly progressive since 2012. Ongoing infection is not excluded. 4. Findings suggest underlying interstitial lung disease with the prominence of mosaic attenuation, subpleural reticular opacities, and interlobular septal thickening suggesting a "head cheese" sign. This suggests hypersensitivity pneumonitis, likely chronic. Differential consideration includes a mixed infiltrative and obstructive process such as sarcoidosis or an atypical infection. Pulmonary consultation to be considered. ECG Rate (beats per minute): 63 Findings: + paced rhythm Code Status & VTE Plan VTE Prophylaxis Plan VTE Prophylaxis will be ordered: Yes Supervising Physician Co-Signing Physician Notes I have seen and examined the patient and have discussed the case with the provider above. I agree with the assessment and plan as stated. 74 yo F with worsening SOB and clinical picture consistent with acute heart failure. Repeat Echo per cardiology. CT chest reveals abnormalities which pulm feels may be consistnet with ILD that is chronic. Patient with crackles at lung bases and otherwise clear with good airflow and no respiratory distress. Obese, no peripheral edema and exam as stated above. Procalcitonin is negative and she hasn't been coughing or having fevers or chills. 1200cc out since first dose Lasix 40 IV today. Now patient with severe headache and refusing to answer questions after getting some IV phenergan. Increased somnolence is clouding the exma and communication. She is very physically deconditioned. Per she rarely gets headaches. Has a h/o viral meningitis in the past. Again, afebrile and does not appear infectious. Cont with Lasix, appreciate Cards recs. Outpatient workup per Pulmnology. DO [place]
[2019-11-01] MEDS ORDERED: ALBUTEROL 0.083% NEBU SOLN 3 ML VIAL INH PRN (11:38)
[2019-11-01] MEDS ORDERED: DEXTROSE 50% 50 ML SYRINGE IV PRN (11:38)
[2019-11-01] MEDS ORDERED: LORATADINE 10 MG TAB PO PRN (11:38)
[2019-11-01] MEDS ORDERED: GLUCAGON FOR INJ 1 MG VIAL SQ PRN (11:38)
[2019-11-01] MEDS ORDERED: GLUCOSE 10 TABS/TUBE PO PRN (11:38)
[2019-11-01] MEDS ORDERED: CARBOHYDRATES FOR HYPOGLYCEMIA PO PRN (11:38)
[2019-11-01] MEDS ORDERED: GLUCOSE 40% GEL 15 GM TUBE PO PRN (11:38)
[2019-11-01] MEDS ORDERED: INSULIN GLARGINE SOLOSTAR 100 UNITS/ML 3 ML PEN SC SCH (12:00)
[2019-11-01] MEDS: carvediloL 12.5 MG TAB PO SCH ×2 (12:52→20:05)
[2019-11-01] MEDS: MONTELUKAST SODIUM 10 MG TABLET PO SCH (12:52)
[2019-11-01] MEDS: ROSUVASTATIN CALCIUM 20 MG TAB PO SCH (12:52)
[2019-11-01] MEDS: ASPIRIN 81 MG ECTAB PO SCH (12:52)
[2019-11-01] MEDS: CLOPIDOGREL BISULFATE 75 MG TAB PO SCH (12:52)
[2019-11-01] MEDS: INSULIN ASPART 100 UNITS/ML 3 ML PEN SC SCH ×3 (12:53→21:07)
[2019-11-01] MEDS: HEPARIN SOD 5,000 UNIT/0.5 ML VIAL SQ SCH ×2 (12:54→21:08)
--- NOTE | 2019-11-01 15:38 | Cardiology Consultation ---
Date of Consultation November 01, 2019 Assessment & Plan (1) Acute on chronic combined systolic and diastolic congestive heart failure: Secondary to medication noncompliance. Good initial diuresis with first dose of IV Lasix and will change to 40 mg IV twice daily. Strict I's and O's along with daily weights. Follow and replete electrolytes as necessary. Repeat echocardiogram (2) Noncompliance with medication regimen: Need for medication adherence reviewed with patient (3) Nonischemic cardiomyopathy: Will repeat echocardiogram to follow-up EF. Continue evidence-based beta-shena. May consider addition of aldosterone antagonist as well based upon the patient's clinical course. (4) CKD (chronic kidney disease), stage III: Follow (5) Pacemaker: Functioning appropriately (6) Granulomatous interstitial lung disease: Will defer to the primary team. History of Present Illness Reason for Consultation: Acute decompensated heart failure Requesting Physician: Dr. Arauz Attending Physician: Dixie Arauz, DO History of Present Illness I saw Mrs. Lamar in consultation today November 01, 2019. She is a 74-year-old woman who normally follows with [facility] Moreno and Dr. Teran of our cardiology practice. She presents to [facility] on November 01, 2019 with complaints of increasing shortness of breath. Patient states that she has been having orthopnea and lower extremity edema for several weeks now. She states that she noticed her breathing started to worsen approximately 1 week ago. She states that her breathing worsened to the point where she can only walk a few steps without having to stop and catch her breath. The patient denies e xperiencing any chest pain to myself however this was reported to the admitting team as well as the ER. But again at this time she denies experiencing chest pain if anything she states that her lungs feel tight when she tries to get a deep breath. She was seen in her PCPs office 2 days ago where she admitted that she has not taken her Lasix in several weeks due to the fact that she does not like to get up to urinate. At that time her PCP instructed her to restart her Lasix and also started on clarithromycin for possible bronchitis however shortness of breath continued she came to the emergency department today. In the ER she was given 1 dose of IV Lasix and states that her shortness of breath is improved. The patient is very somnolent during my interview. Past medical history as per most recent outpatient cardiology visit note: 1. Long-standing hypertension with diastolic LV dysfunction. 2. Chronic left bundle branch block. 3. 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 4. Morbid obesity. 5. Asthmatic lung disease. 6. Type 2 diabetes mellitus. 7. Dyslipidemia. 8. Cardiac catheterization April 2015 with normal coronaries, elevated left end-diastolic pressure 9. Moderate reduction in LV systolic function Allergies Allergy/AdvReac Type Severity Reaction Status Date / Time fluticasone Allergy Severe WATER ON Verified 11/01/19 06:44 LUNGS salmeterol Allergy Severe WATER ON Verified 11/01/19 06:44 LUNGS propoxyphene Allergy Mild FROM Verified 11/01/19 06:44 DARVOCET benzocaine Allergy Unknown ? Verified 11/01/19 06:44 mold Allergy Unknown uknown Verified 11/01/19 06:44 prednisone AdvReac Intermediate HYPERGLYCEM Verified 11/01/19 06:44 IA vinyl AdvReac Unknown RASH Uncoded 11/01/19 06:44 Home Medications Home Medications Medication Instructions Recorded Confirmed Type aspirin 81 mg PO DAILY 10/01/19 11/01/19 History carvedilol 12.5 mg PO BID 10/01/19 11/01/19 History clopidogrel 75 mg PO DAILY 10/01/19 11/01/19 History cyanocobalamin (vitamin B-12) 100 mcg PO DAILY 10/01/19 11/01/19 History insulin glargine [Lantus Solostar 65 unit SUBCUT BID 10/01/19 11/01/19 History U-100 Insulin] loratadine 10 mg PO DAILY PRN 10/01/19 11/01/19 History metformin 1,000 mg PO BID 10/01/19 11/01/19 History mometasone [Asmanex HFA] 2 inh INHALATION DAILY 10/01/19 11/01/19 History montelukast 10 mg PO DAILY 10/01/19 11/01/19 History multivitamin with minerals 1 tab PO DAILY 10/01/19 11/01/19 History [Multiple Vitamin-Minerals] rosuvastatin 40 mg PO DAILY 10/01/19 11/01/19 History sitagliptin [Januvia] 50 mg PO DAILY 10/01/19 11/01/19 History albuterol sulfate 2.5 mg INHALATION Q4H PRN 11/01/19 11/01/19 History clarithromycin 500 mg PO BID 11/01/19 11/01/19 History furosemide [Lasix] 20 mg PO DAILY 11/01/19 11/01/19 History Patient History Medical History Asthma Asthma exacerbation (Acute) Bradycardia (Acute) Chronic combined systolic and diastolic heart failure CKD (chronic kidney disease) (Inactive) CKD (chronic kidney disease), stage III Claudication (Inactive) Complete heart block (Acute 06/14/14) Dehydration (Acute) Diabetes mellitus, type II, insulin dependent Dyslipidemia HTN (hypertension) Hyperglycemia (Acute) Morbid obesity Nonischemic cardiomyopathy Pacemaker Physical deconditioning (Inactive) PVD (peripheral vascular disease) Surgical History H/O tubal ligation History of cardiac cath 2014 - normal coronary arteries; Dr Jorgensen [place] [facility] [place] History of carpal tunnel release History of cataract removal with insertion of prosthetic lens History of revascularization procedure of lower extremity fem/pop artery revascularization RLE; 09/2017; Dr Gill at [facility] [place] History of total knee arthroplasty 2005; bilateral Family History Mother Leukemia Son Asthma Brother Stroke Social History Preferred Language: Mauritian Communication Ability: Effective [employer] Required: No Beliefs That Will Affect Care: None Current Living Situation: Spouse Other Information That Helps Us Care for You: No Feels Safe at Home: Yes Safety Concerns: Feels Safe At This Time Smoking Status: Never smoker Do You Dip or Chew Tobacco: No ; Second Hand Exposure: No ; Tobacco Cessation Education Requested by Patient: No Hx Alcohol Use: Yes Alcohol Intake Frequency: Rarely Hx Substance Use: No Review of Systems Review of Systems: All systems reviewed & are unremarkable except as noted in HPI & below Physical Exam Physical Exam: General: Awake, alert and oriented x 3. No acute distress. HEENT: Normocephalic, atraumatic. Pupils equal, round and reactive to light and accommodation. Extraocular muscles are intact. Anicteric sclera. Moist mucous membranes. Neck: No JVD. No bruit. Cardiovascular: Distant but regular unable to appreciate murmurs rubs or gallops. Pulmonary: Poor air movement at the bilateral bases with scant crackles. Abdomen: Bowel sounds x 4, soft. No rebound, guarding or tenderness. No organomegaly. Extremities: No clubbing, cyanosis. +2 b/l le edema. +2 pedal pulses bilaterally. Skin: Warm and dry. Results & Data ([facility]) Vital Signs (Past 12 Hours) Vital Signs Temp Pulse Pulse Resp BP BP BP 11/01/19 11:44 36.8 C 66 20 145/78 H 11/01/19 11:24 67 20 143/92 H 11/01/19 10:00 68 20 167/68 H 11/01/19 09:00 69 20 164/75 H 11/01/19 07:49 63 20 147/82 H 11/01/19 07:01 11/01/19 07:00 11/01/19 06:28 64 64 20 124/95 11/01/19 05:40 36.4 C L 63 18 145/61 H Pulse Ox 11/01/19 11:44 96 11/01/19 11:24 99 11/01/19 10:00 99 11/01/19 09:00 99 11/01/19 07:49 100 11/01/19 07:01 94 11/01/19 07:00 88 L 11/01/19 06:28 94 11/01/19 05:40 96 Laboratory Results Laboratory Results - last 24 hr 11/01/19 11/01/19 11/01/19 06:00 06:00 06:00 WBC 8.41 RBC 4.38 Hgb 12.7 Hct 40.0 MCV 91.3 MCH 29.0 MCHC 31.8 L RDW Std Deviation 53.6 H RDW Coeff of Javier 16.2 H Plt Count 221 MPV 9.8 Immature Gran % (Auto) 0.2 Neut % (Auto) 68.3 Lymph % (Auto) 19.1 [place] % (Auto) 9.0 Eos % (Auto) 2.9 Baso % (Auto) 0.5 Immature Gran # (Auto) 0.02 Neut # (Auto) 5.74 Lymph # (Auto) 1.61 [place] # (Auto) 0.76 H Eos # (Auto) 0.24 Baso # (Auto) 0.04 PT 10.6 INR 1.0 APTT 25.4 PTT Ratio 0.9 D-Dimer 1100 H* Sodium 139 Potassium 4.0 Chloride 103 Carbon Dioxide 29 Anion Gap 7.0 BUN 18 Creatinine 1.26 H Est Cr Clr Drug Dosing Not Reportable Est GFR ( Amer) 48.6 Est GFR (Non-Af Amer) 41.9 BUN/Creatinine Ratio 14.4 Glucose 108 H POC Glucose Calcium 9.7 Total Bilirubin 0.5 AST 17 ALT 20 Alkaline Phosphatase 56 Troponin I < 0.015 NT-Pro-B Natriuret Pep Total Protein 7.6 Albumin 3.1 L Globulin 4.5 H Albumin/Globulin Ratio 0.7 L Procalcitonin Urine Color Urine Appearance Urine pH Ur Specific [place] Urine Protein Urine Glucose (UA) Urine Ketones Urine Blood Urine Nitrite Urine Bilirubin Urine Urobilinogen Ur Leukocyte Esterase Hepatitis C Ab Screen Influenza Type A (PCR) Influenza Type B (PCR) 11/01/19 11/01/19 11/01/19 06:00 06:00 06:00 WBC RBC Hgb Hct MCV MCH MCHC RDW Std Deviation RDW Coeff of Javier Plt Count MPV Immature Gran % (Auto) Neut % (Auto) Lymph % (Auto) [place] % (Auto) Eos % (Auto) Baso % (Auto) Immature Gran # (Auto) Neut # (Auto) Lymph # (Auto) [place] # (Auto) Eos # (Auto) Baso # (Auto) PT INR APTT PTT Ratio D-Dimer Sodium Potassium Chloride Carbon Dioxide Anion Gap BUN Creatinine Est Cr Clr Drug Dosing Est GFR ( Amer) Est GFR (Non-Af Amer) BUN/Creatinine Ratio Glucose POC Glucose Calcium Total Bilirubin AST ALT Alkaline Phosphatase Troponin I NT-Pro-B Natriuret Pep 717 Total Protein Albumin Globulin Albumin/Globulin Ratio Procalcitonin < 0.05 Urine Color Urine Appearance Urine pH Ur Specific [place] Urine Protein Urine Glucose (UA) Urine Ketones Urine Blood Urine Nitrite Urine Bilirubin Urine Urobilinogen Ur Leukocyte Esterase Hepatitis C Ab Screen Neg Influenza Type A (PCR) Influenza Type B (PCR) 11/01/19 11/01/19 11/01/19 08:27 09:00 11:38 WBC RBC Hgb Hct MCV MCH MCHC RDW Std Deviation RDW Coeff of Javier Plt Count MPV Immature Gran % (Auto) Neut % (Auto) Lymph % (Auto) [place] % (Auto) Eos % (Auto) Baso % (Auto) Immature Gran # (Auto) Neut # (Auto) Lymph # (Auto) [place] # (Auto) Eos # (Auto) Baso # (Auto) PT INR APTT PTT Ratio D-Dimer Sodium Potassium Chloride Carbon Dioxide Anion Gap BUN Creatinine Est Cr Clr Drug Dosing Est GFR ( Amer) Est GFR (Non-Af Amer) BUN/Creatinine Ratio Glucose POC Glucose 94 Calcium Total Bilirubin AST ALT Alkaline Phosphatase Troponin I NT-Pro-B Natriuret Pep Total Protein Albumin Globulin Albumin/Globulin Ratio Procalcitonin Urine Color Yellow Urine Appearance Clear Urine pH 5.5 Ur Specific [place] 1.029 Urine Protein Negative Urine Glucose (UA) Negative Urine Ketones Negative Urine Blood Negative Urine Nitrite Negative Urine Bilirubin Negative Urine Urobilinogen Negative Ur Leukocyte Esterase Negative Hepatitis C Ab Screen Influenza Type A (PCR) Neg for Influ A Influenza Type B (PCR) Neg for Influ B Medications Administered Current Inpatient Medications Acetaminophen (Tylenol) 650 mg PO Q4H PRN PRN Reason: Pain or Fever Stop: 12/01/19 11:37 Albuterol (Ventolin 0.083% 2.5mg/3ml) 2.5 mg INH Q4H PRN PRN Reason: Shortness Of Breath Or Wheezing Stop: 12/01/19 11:37 Aspirin (Ecotrin Ectab) 81 mg PO DAILY [facility] Stop: 12/01/19 11:37 Last Admin: 11/01/19 12:52 Dose: 81 mg Documented by: Carvedilol (Coreg) 12.5 mg PO BID [facility] Stop: 12/01/19 11:37 Last Admin: 11/01/19 12:52 Dose: 12.5 mg Documented by: Clopidogrel Bisulfate (Plavix) 75 mg PO DAILY [facility] Stop: 12/01/19 11:37 Last Admin: 11/01/19 12:52 Dose: 75 mg Documented by: Cyanocobalamin (Vitamin B-12) 100 mcg PO DAILY [facility] Stop: 12/02/19 08:59 Dextrose (Dextrose 50%) 25 - 50 ml IV UD PRN; Protocol PRN Reason: Hypoglycemia Protocol Stop: 12/01/19 11:37 Glucagon (Glucagen) 1 mg SQ UD PRN; Protocol PRN Reason: Hypoglycemia Protocol Stop: 12/01/19 11:37 Glucose (Dex4 Glucose) 4 - 8 tabs PO UD PRN; Protocol PRN Reason: Hypoglycemia Protocol Stop: 12/01/19 11:37 Glucose (Glucose 40%) 15 - 30 gm PO UD PRN; Protocol PRN Reason: Hypoglycemia Protocol Stop: 12/01/19 11:37 Heparin Sodium (Porcine) (Heparin Sodium (Porcine)) 5,000 units SQ Q8 [facility]Y Stop: 12/01/19 13:59 Last Admin: 11/01/19 12:54 Dose: 5,000 units Documented by: Insulin Aspart (Novolog Flexpen) 0 units SC ACHS JEY Stop: 12/01/19 11:59 Last Admin: 11/01/19 12:53 Dose: 2 units Documented by: Insulin Glargine (Lantus Solostar Pen) 0 units SC BID [facility]; Protocol Stop: 12/01/19 11:59 Loratadine (Claritin) 10 mg PO DAILY PRN PRN Reason: Allergy Symptoms Stop: 12/01/19 11:37 Miscellaneous (Carbohydrates For Hypoglycemia) 15 - 30 gm PO UD PRN PRN Reason: Hypoglycemia Protocol Stop: 12/01/19 11:37 Miscellaneous (Order Awaiting Action) 1 ea N/A QS [facility] Stop: 12/02/19 07:59 Montelukast Sodium (Singulair) 10 mg PO DAILY [facility] Stop: 12/01/19 11:37 Last Admin: 11/01/19 12:52 Dose: 10 mg Documented by: Multivitamins/Minerals (Multivitamin W/ Minerals Tab) 1 tab PO DAILY [facility] Stop: 12/02/19 08:59 Rosuvastatin Calcium (Crestor) 40 mg PO DAILY [facility] Stop: 12/01/19 11:37 Last Admin: 11/01/19 12:52 Dose: 40 mg Documented by:
[2019-11-01] MEDS: ACETAMINOPHEN 325 MG TAB PO PRN (16:15)
[2019-11-01] MEDS ORDERED: PROMETHAZINE HCL 12.5 MG/10 ML UDP PO PRN (17:47)
[2019-11-01] MEDS: FUROSEMIDE 40 MG in SYRINGE 0 ML IV SCH (17:50)
--- NOTE | 2019-11-01 17:53 | Electrocardiogram Report ---
Test Reason : Blood Pressure : / mmHG Vent. Rate : 063 BPM Atrial Rate : 063 BPM P-R Int : 196 ms QRS Dur : 180 ms QT Int : 490 ms P-R-T Axes : 035 -83 087 degrees QTc Int : 501 ms Atrial-sensed ventricular-paced rhythm Abnormal ECG When compared with ECG of 09-SEP-2017 18:11, Vent. rate has decreased BY 5 BPM Confirmed by Ryne Lima ([id number]) on 11/01/2019 5:53:28 PM Referred By: REFERRED SELF Confirmed By:Ryne Lima
[2019-11-01] MEDS ORDERED: IBUPROFEN 800 MG TAB PO STA (17:57)
[2019-11-01] MEDS ORDERED: PROMETHAZINE HCL 12.5 MG in SODIUM CHLORIDE 0.9% 50 ML IV PRN (18:01)
[2019-11-01] MEDS ORDERED: PROMETHAZINE HCL 25 MG TAB PO PRN (20:00)
[2019-11-01] MEDS ORDERED: OXYCODONE HCL IR 5 MG TAB (IMMEDIATE RELEASE) PO STA (20:00)
--- NOTE | 2019-11-01 20:29 | Pulmonary Consultation ---
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 Aly in 2006 at [facility] At that time, consideration was given for histoplasmosis versus sarcoidosis. Patient refused work-up or bronchoscopy for diagnosis at that time. Pulmonary hypersensitivity panel has been requested. This is a reference lab procedure and will most likely not be available for 10 to 14 days. We will continue to treat supportively This is an outpatient work-up Patient advised to follow-up with pulmonary clinic for complete pulmonary work- up No indication at this time for steroids We will continue Singulair and duo nebs supportively (2) Acute dyspnea: Multifactorial Suspect primary etiology is congestive heart failure with outpatient noncompliance Continue furosemide and watch strict ins and outs CTA with no pulmonary emboli or evidence of infiltrate or consolidation Patient with probable ISAIAS/OHS Serum carbon dioxide slightly elevated at 29 mmol/L Patient currently oxygenating in the mid to high 90s on room air If patient becomes hypoxic or lethargic, consider ABGs to determine appropriate treatment Recommend outpatient follow-up in the pulmonary clinic with PFTs and polysomnography (3) Morbid obesity: Patient admits that she weighs too much but states that her weight has been fairly stable over the last year Discussed need for weight loss and medication compliance Thank you very much for including us in the care of this patient. We will continue to follow along with you Please refer to Dr. Winchester's addendum for further recommendations. Supervising Physician Co-Signing Physician Notes Patient seen and discussed with Celestino Zamudio, Patient is a morbidly obese with PMHx of Asthma, diastolic CHF, ISAIAS/OHS likely comes with SOB. CT chest reviewed which showed diffuse mosaicism which can be secondary to air trapping especially in asthmatic obese patient. Other differential includes but not limited to is HP. Interstitial thickening is likely sec to Diastolic CHF related pulmonary edema. C/w inhaled bronchodilators, BiPAP qhs and PRN SOB. Needs sleep study if not already done. History of Present Illness Attending Physician: Dixie Arauz DO History of Present Illness Attending: Dr. Winchester This is a 74-year-old female that was admitted for shortness of breath. Past medical history includes hypertension with diastolic LV dysf unction, chronic left bundle branch block, complete heart block resign dual- chamber pacemaker insertion, history of Lyme disease, asthma, type 2 diabetes mellitus, dyslipidemia, moderate reduction in LV systolic function, chronic granulomatous disease of the lung, morbid obesity with a BMI of 44.3 kg/m. Patient presents with apparent fluid overload. She was started on furosemide and has had significant urinary output. In discussion with patient she has not been taking her medications at home as prescribed. Specifically she has not taken furosemide at home secondary to frequent urination. The patient's pulmonary history dates back to at least 2006 when she was seen by Dr. Manoj Aly at the [facility] pulmonary clinic at [facility]. The patient has probable obstructive sleep apnea but is refused polysomnography examination in the past. The patient also had evidence of interstitial lung disease versus granulomatous disease going back to 2006. At that time a bronchoscopy was suggested and the patient elected not to proceed with diagnosis. On admission, patient has CTA of the chest to rule out pulmonary emboli and was found to have very slight progression of her granulomatous appearing CT of chest as compared to most recent CT of 2012. Patient denies current use of contemporary inhalers and states that she periodically uses her albuterol inhaler from 7 years ago. Brianna ent also complains of migrainous headaches and states that she uses Imitrex prescribed also several years ago. At the time of my examination the patient was short of breath but also had nause a and vomiting. Oxygenation was adequate on room air with an SaO2 of 94%. Patient was afebrile with a temp of 36.8 Celsius. The patient was experiencing chills but no rigors. The patient denies any previous history of tobacco abuse. When questioned about weight gain or weight loss over the last 12 months the patient states that she is just too heavy. She has no history of ethanol abuse. She does have exposure to a toddler who recently had viral-like symptoms. She has no recent travel. S he complains of malaise and feeling ill with no other explicit complaints. The patient denies any recent pulmonary function testing. Most recent pulmonary function testing was completed 12/14/2012 with an FEV1 of 75% of predicted, FVC 65% of predicted, FEV1/FVC ratio 88% of predicted. There is no significant post bronchodilator change. Flow loops and lung volumes were not provided. She is not following with any other pulmonary group. She has not seen a travel manager for greater than 10 years. Allergies Allergy/AdvReac Type Severity Reaction Status Date / Time fluticasone Allergy Severe WATER ON Verified 11/01/19 06:44 LUNGS salmeterol Allergy Severe WATER ON Verified 11/01/19 06:44 LUNGS propoxyphene Allergy Mild FROM Verified 11/01/19 06:44 DARVOCET benzocaine Allergy Unknown ? Verified 11/01/19 06:44 mold Allergy Unknown uknown Verified 11/01/19 06:44 prednisone AdvReac Intermediate HYPERGLYCEM Verified 11/01/19 06:44 IA vinyl AdvReac Unknown RASH Uncoded 11/01/19 06:44 Home Medications Home Medications Medication Instructions Recorded Confirmed Type aspirin 81 mg PO DAILY 10/01/19 11/01/19 History carvedilol 12.5 mg PO BID 10/01/19 11/01/19 History clopidogrel 75 mg PO DAILY 10/01/19 11/01/19 History cyanocobalamin (vitamin B-12) 100 mcg PO DAILY 10/01/19 11/01/19 History insulin glargine [Lantus Solostar 65 unit SUBCUT BID 10/01/19 11/01/19 History U-100 Insulin] loratadine 10 mg PO DAILY PRN 10/01/19 11/01/19 History metformin 1,000 mg PO BID 10/01/19 11/01/19 History mometasone [Asmanex HFA] 2 inh INHALATION DAILY 10/01/19 11/01/19 History montelukast 10 mg PO DAILY 10/01/19 11/01/19 History multivitamin with minerals 1 tab PO DAILY 10/01/19 11/01/19 History [Multiple Vitamin-Minerals] rosuvastatin 40 mg PO DAILY 10/01/19 11/01/19 History sitagliptin [Januvia] 50 mg PO DAILY 10/01/19 11/01/19 History albuterol sulfate 2.5 mg INHALATION Q4H PRN 11/01/19 11/01/19 History clarithromycin 500 mg PO BID 11/01/19 11/01/19 History furosemide [Lasix] 20 mg PO DAILY 11/01/19 11/01/19 History Patient History Medical History Asthma Asthma exacerbation (Acute) Bradycardia (Acute) Chronic combined systolic and diastolic heart failure CKD (chronic kidney disease) (Inactive) CKD (chronic kidney disease), stage III Claudication (Inactive) Complete heart block (Acute 06/14/14) Dehydration (Acute) Diabetes mellitus, type II, insulin dependent Dyslipidemia HTN (hypertension) Hyperglycemia (Acute) Morbid obesity Nonischemic cardiomyopathy Pacemaker Physical deconditioning (Inactive) PVD (peripheral vascular disease) Surgical History H/O tubal ligation History of cardiac cath 2014 - normal coronary arteries[place] [facility] [place] of carpal tunnel release History of cataract removal with insertion of prosthetic lens History of revascularization procedure of lower extremity fem/pop artery revascularization RLE; 09/2017; [place] Gill [place] [facility] [place] History of total knee arthroplasty 2005; bilateral Family History Mother Leukemia Son Asthma Brother Stroke Social History Preferred Language: Gabonese Communication Ability: Effective Chemistry Instructor Required: No Beliefs That Will Affect Care: None Current Living Situation: Spouse Other Information That Helps Us Care for You: No Feels Safe at Home: Yes Safety Concerns: Feels Safe At This Time Smoking Status: Never smoker Do You Dip or Chew Tobacco: No ; Second Hand Exposure: No ; Tobacco Cessation Education Requested by Patient: No Hx Alcohol Use: Yes Alcohol Intake Frequency: Rarely Hx Substance Use: No Review of Systems Review of Systems: All systems reviewed & are unremarkable except as noted in HPI & below Physical Exam Physical Exam: GENERAL : No acute distress EYES: No icterus, gaze conjugate NOSE: No evidence of epistaxis MOUTH: No lesions or candidiasis NECK: Supple LUNGS: Distant breath sounds. Poor inspiratory effort. No overt bronchospasm. Patient does have bilateral coarse rales in the bases. No appreciation of rhonchi HEART: Regular, tachycardic in the low 100s ABDOMEN: Soft, NT, ND, BS Present EXTREMITIES: +2-3 bilateral LE pitting edema, pedal pulses intact and equal bilaterally NEURO: A&OX3. Pupils equal round and reactive to light. Tongue is midline. Strength is equal and appropriate on upper extremities. Cranial nerves II through XII appear grossly intact without focal deficit. Results & Data ([facility]) Vital Signs (Past 12 Hours) Vital Signs Temp Pulse Pulse Resp BP BP BP 11/01/19 19:58 37.1 C 68 20 160/87 H 11/01/19 18:08 36.6 C 73 20 199/85 H 11/01/19 16:33 83 11/01/19 15:47 36.8 C 80 20 159/84 H 11/01/19 11:44 36.8 C 66 20 145/78 H 11/01/19 11:24 67 20 143/92 H 11/01/19 10:00 68 20 167/68 H 11/01/19 09:00 69 20 164/75 H Pulse Ox 11/01/19 19:58 96 11/01/19 18:08 94 11/01/19 16:33 11/01/19 15:47 98 11/01/19 11:44 96 11/01/19 11:24 99 11/01/19 10:00 99 11/01/19 09:00 99 Laboratory Results 11/01/19 06:00 11/01/19 06:00 INR 1.0 (0.9-1.1) 11/01/19 06:[address] angio chest PE protocol CLINICAL HISTORY: 74 years-old Female presenting with shortness of breath, clinical concern for pulmonary embolus. TECHNIQUE: Multidetector CT angiography of the chest was performed after administration of intravenous contrast. 3-D volumetric and/or maximum intensity projection (MIP) images were subsequently reconstructed for review. IV contrast: 120 mL of Optiray 320. One or more dose lowering techniques were used consistent with the principles of ALARA (as low as reasonably achievable), including automatic exposure control, mA or kV adjustment to individual patient size, and/or use of iterative reconstruction. COMPARISON: 05/07/2013. CT DOSE (mGy.cm): The estimated cumulative dose is 495.35 mGycm. FINDINGS: Rn Nursery topogram: Left subclavian pacer with leads to the right atrium and right ventricular apex. Pulmonary vasculature: The study is adequate for assessment of the pulmonary vascular tree. No filling defect within the pulmonary arteries to suggest embolus. Main pulmonary artery is not enlarged. No flattening of the interventricular septum. No intracardiac filling defect. Reflux of contrast into the IVC and hepatic veins. This likely indicates elevated right heart pressure. Remaining chest: Soft tissues: Normal thyroid and thoracic inlet. Mildly prominent right hilar lymph nodes. Mild atherosclerosis of the thoracic aorta. Multichamber enlargement of the heart. Coronary artery calcification. Pacer leads to the right atrial appendage and right ventricular apex. No pericardial or pleural effusion. Prominent splenic and hepatic arterial calcification. Lungs and airways: No pneumothorax. Central airways patent. Pulmonary arteries are not significantly enlarged relative to adjacent bronchi. Mild interlobular septal thickening suspected at the lung bases, right greater than left. Reticular subpleural opacities with a basilar predominance, right greater than left. Extensive mosaic attenuation. Focal peribronchovascular abnormality with internal calcification in the superior segment of the right lower lobe similar to prior exam. There is also a morphology of cavity formation with internal debris (series 4 image 149). Mild bronchiectasis may be present in the superior segment. Calcified granulomata also noted in the superior segment of the right lower lobe. Changes have progressed since 2013. Musculoskeletal: Degenerative changes of the spine. IMPRESSION: 1. No evidence of pulmonary embolus. 2. Evidence of elevated right heart pressure in the setting of cardiomegaly. No jack pulmonary edema. 3. Interval progression of peribronchovascular consolidative changes with calcified granuloma in the superior segment of the right lower lobe. These findings suggest a chronic granulomatous disease, which may be mildly progressive since 2013. Ongoing infection is not excluded. 4. Findings suggest underlying interstitial lung disease with the prominence of mosaic attenuation, subpleural reticular opacities, and interlobular septal thickening suggesting a "head cheese" sign. This suggests hypersensitivity pneumonitis, likely chronic. Differential consideration includes a mixed infiltrative and obstructive process such as sarcoidosis or an atypical infection. Pulmonary consultation to be considered. ACT 112: Negative or not required by law. Electronically signed by: Ganesh Angel M.D. 11/01/2019 8:11 AM PG Care Time/CCT Total # of Minutes Spent Total Time Spent with Patient: Total time spent is greater than 50% in coordination of care (as documented) at patient's floor/unit and/or counseling patient: 45 minutes including discussion with patient and her Coding Level of Care Code 45229 Inpt Consult Level 5 Diagnoses Granulomatous interstitial lung disease J84.89; D71 Acute dyspnea R06.00 Morbid obesity E66.01
[2019-11-01] MEDS: INSULIN GLARGINE SOLOSTAR 100 UNITS/ML 3 ML PEN SC SCH (21:05)
[2019-11-02] MEDS: ACETAMINOPHEN 325 MG TAB PO PRN ×2 (00:16→05:47)
[2019-11-02] MEDS: HEPARIN SOD 5,000 UNIT/0.5 ML VIAL SQ SCH ×2 (05:33→13:51)
[2019-11-02 06:47] LABS: Hematocrit (blood only) 36.8 % (37-47); Mean Corpuscular Hgb Conc 32.6 g/dL (32-36); Mean Corpuscular Volume 88.9 fL (80-100); Mean Platelet Volume 9.5 fL (7.4-10.4); Platelet Count 188 K/uL (130-400); RDW Coefficient of Variation 16.4 % (11.5-14.5); RDW Standard Deviation 52.9 fL (36.4-46.3); Red Blood Count 4.14 M/uL (4.2-5.4); White Blood Count 7.47 K/uL (4.8-10.8)
[2019-11-02 07:18] LABS: BUN Creatinine Ratio 14.6 (10-20); Calcium 9.1 mg/dl (8.5-10.1); Est GFR (African American) 34.6; Est GFR (Non-African American) 29.8; Potassium 3.5 mmol/L (3.5-5.1)
[2019-11-02] MEDS ORDERED: [UNRECOGNIZED DRUG - REMARK] SCH (08:00)
[2019-11-02] MEDS: MONTELUKAST SODIUM 10 MG TABLET PO SCH (08:42)
[2019-11-02] MEDS: CLOPIDOGREL BISULFATE 75 MG TAB PO SCH (08:42)
[2019-11-02] MEDS: FUROSEMIDE 40 MG in SYRINGE 0 ML IV SCH (08:42)
[2019-11-02] MEDS: ASPIRIN 81 MG ECTAB PO SCH (08:42)
[2019-11-02] MEDS: carvediloL 12.5 MG TAB PO SCH (08:42)
[2019-11-02] MEDS: ROSUVASTATIN CALCIUM 20 MG TAB PO SCH (08:42)
[2019-11-02] MEDS: INSULIN ASPART 100 UNITS/ML 3 ML PEN SC SCH ×3 (08:43→17:29)
[2019-11-02] MEDS: INSULIN GLARGINE SOLOSTAR 100 UNITS/ML 3 ML PEN SC SCH (08:43)
[2019-11-02] MEDS ORDERED: CEROVITE ADV FORMULA TAB PO SCH (09:00)
[2019-11-02] MEDS ORDERED: ASMANEX INH SCH (09:00)
[2019-11-02] MEDS ORDERED: CYANOCOBALAMIN (VITAMIN B-12) 100 MCG TABLET PO SCH (09:00)
--- NOTE | 2019-11-02 11:22 | Hospitalist Progress Note ---
Date of Service November 02, 2019 Assessment & Plan (1) Acute on chronic combined systolic and diastolic congestive heart failure: (2) Nonischemic cardiomyopathy: (3) Granulomatous interstitial lung disease: (4) Diabetes mellitus, type II, insulin dependent: (5) Complete heart block: 74-year-old female presented with acute onset of dyspnea at home. Work-up including a CTA of the chest revealed no evidence of pulmonary embolism. She was never found to be hypoxic but did have supplemental oxygen given to her as a treatment while hospitalized. CT also revealed evidence of elevated right heart pressure in the setting of cardiomegaly with no jack pulmonary edema. There were also concerning findings suggesting an underlying a chronic interstitial lung disease and possibly hypersensitivity pneumonitis. Although there was evidence of some peribronchovascular consolidative changes with a calcified granuloma in the superior segment of the right lower lobe, and infection may not be excluded, she was not exhibiting signs of an infectious process and outpatient clarithromycin had not been helpful for her dyspnea. Clinically she appeared to be more consistent with a CHF exacerbation and she was given Lasix and admitted to the hospitalist service. Cardiology was consulted and ordered an echocardiogram revealing no significant change compared to previous study on May 2014. Specifically the echo revealed moderately reduced LV systolic function with an EF of 40 to 45%. There was dyskinesis of the heart [place] consistent with RV pacing and grade 1 diastolic dysfunction was noted. Right ventricular systolic function was borderline reduced and there was no significant valvular pathology. She diuresed approximately 1 to 1.5 L with a couple doses of Lasix, and the following day her creatinine went from her baseline 1.25-1.67, likely a result of the Lasix. This was held. She was significantly improved clinically the next day and appeared euvolemic on exam. She was cleared by cardiology for discharge home and will be put back on her daily Lasix therapy with a repeat basic metabolic panel through her PCP next week. A 1 week follow-up with PCP is recommended, also, to ensure she is still doing well. She was given appropriate instructions for CHF including avoiding of salt and weighing herself daily. She verbalized an understanding with intent to comply. Regarding her pulmonology work-up this was started in the hospital with multiple lab values pending at the time of discharge. Primary care follow- up will also be important for this and for referral to pulmonology as needed to set up care and continue investigation into her chest imaging abnormalities seen on CT. At time of discharge she was hemodynamically stable and afebrile and tolerating p.o. She was mentating and ambulating at baseline and was oxygenating well on room air. Close primary care follow-up was recommended again for repeat BMP in 1 week and referral to pulmonology as outpatient to continue the investigation of her lung abnormalities. Admission and Anticipated Discharge Date Admission Date: November 01, 2019 Results & Data ([facility]) Vital Signs (Past 12 Hours) Vital Signs Temp Pulse Pulse Resp BP BP Pulse Ox 11/02/19 08:25 67 11/02/19 07:27 36.9 C 71 20 123/67 97 11/02/19 04:33 36.8 C 77 20 108/64 95 11/02/19 00:00 37.2 C 84 23 144/82 H 92 Laboratory Results Short CBC 11/02/19 Range/Units 06:35 WBC 7.47 (4.8-10.8) K/uL Hgb 12.0 (12.0-16.0) g/dL Hct 36.8 L (37-47) % Plt Count 188 (130-400) K/uL BMP 11/02/19 06:35 Sodium 133 L Potassium 3.5 Chloride 95 L Carbon Dioxide 30 BUN 24 H Creatinine 1.67 H D Glucose 122 H Calcium 9.1 Medications Administered Current Inpatient Medications Acetaminophen (Tylenol) 650 mg PO Q4H PRN PRN Reason: Pain or Fever Stop: 12/01/19 11:37 Last Admin: 11/02/19 05:47 Dose: 650 mg Documented by: Albuterol (Ventolin 0.083% 2.5mg/3ml) 2.5 mg INH Q4H PRN PRN Reason: Shortness Of Breath Or Wheezing Stop: 12/01/19 11:37 Aspirin (Ecotrin Ectab) 81 mg PO DAILY ON LICENSE OF [facility] Stop: 12/01/19 11:37 Last Admin: 11/02/19 08:42 Dose: 81 mg Documented by: Carvedilol (Coreg) 12.5 mg PO BID ON LICENSE OF [facility] Stop: 12/01/19 11:37 Last Admin: 11/02/19 08:42 Dose: 12.5 mg Documented by: Clopidogrel Bisulfate (Plavix) 75 mg PO DAILY ON LICENSE OF [facility] Stop: 12/01/19 11:37 Last Admin: 11/02/19 08:42 Dose: 75 mg Documented by: Cyanocobalamin (Vitamin B-12) 100 mcg PO DAILY JEY Stop: 12/02/19 08:59 Last Admin: 11/02/19 08:42 Dose: 100 mcg Documented by: Dextrose (Dextrose 50%) 25 - 50 ml IV UD PRN; Protocol PRN Reason: Hypoglycemia Protocol Stop: 12/01/19 11:37 Glucagon (Glucagen) 1 mg SQ UD PRN; Protocol PRN Reason: Hypoglycemia Protocol Stop: 12/01/19 11:37 Glucose (Dex4 Glucose) 4 - 8 tabs PO UD PRN; Protocol PRN Reason: Hypoglycemia Protocol Stop: 12/01/19 11:37 Glucose (Glucose 40%) 15 - 30 gm PO UD PRN; Protocol PRN Reason: Hypoglycemia Protocol Stop: 12/01/19 11:37 Heparin Sodium (Porcine) (Heparin Sodium (Porcine)) 5,000 units SQ Q8 JEY Stop: 12/01/19 13:59 Last Admin: 11/02/19 05:33 Dose: 5,000 units Documented by: Furosemide 40 mg/ Syringe 4 mls @ 4 mls/min IV BID17 ON LICENSE OF [facility] Stop: 12/01/19 17:59 Last Admin: 11/02/19 08:42 Dose: 4 mls/min Documented by: Promethazine HCl 12.5 mg/ (Sodium Chloride) 50.5 mls @ 202 mls/hr IV Q6H PRN PRN Reason: Nausea And Vomiting Stop: 12/01/19 18:00 Last Infusion: 11/01/19 19:12 Dose: Infused Documented by: Insulin Aspart (Novolog Flexpen) 0 units SC ACHS ON LICENSE OF [facility] Stop: 12/01/19 11:59 Last Admin: 11/02/19 08:43 Dose: 3 units Documented by: Insulin Glargine (Lantus Solostar Pen) 0 units SC BID ON LICENSE OF [facility]; Protocol Stop: 12/01/19 11:59 Last Admin: 11/02/19 08:43 Dose: Not Given Documented by: Loratadine (Claritin) 10 mg PO DAILY PRN PRN Reason: Allergy Symptoms Stop: 12/01/19 11:37 Miscellaneous (Carbohydrates For Hypoglycemia) 15 - 30 gm PO UD PRN PRN Reason: Hypoglycemia Protocol Stop: 12/01/19 11:37 Montelukast Sodium (Singulair) 10 mg PO DAILY ON LICENSE OF [facility] Stop: 12/01/19 11:37 Last Admin: 11/02/19 08:42 Dose: 10 mg Documented by: Multivitamins/Minerals (Multivitamin W/ Minerals Tab) 1 tab PO DAILY JEY Stop: 12/02/19 08:59 Last Admin: 11/02/19 08:42 Dose: 1 tab Documented by: Asmanex: Non- Formulary Patient's Own Med 1 ea INH DAILY ON LICENSE OF [facility] Stop: 12/02/19 08:59 Last Admin: 11/02/19 08:42 Dose: 2 puffs Documented by: Promethazine HCl (Phenergan) 12.5 mg PO Q6H PRN PRN Reason: Nausea And Vomiting Stop: 12/01/19 19:59 Last Admin: 11/01/19 21:15 Dose: 12.5 mg Documented by: Rosuvastatin Calcium (Crestor) 40 mg PO DAILY ON LICENSE OF [facility] Stop: 12/01/19 11:37 Last Admin: 11/02/19 08:42 Dose: 40 mg Documented by:
[2019-11-02] MEDS ORDERED: POTASSIUM CHLORIDE 20 MEQ TABCR PO ONE (12:18)
--- NOTE | 2019-11-02 12:18 | Cardiology Progress Note ---
Date of Service November 02, 2019 Assessment & Plan (1) Acute on chronic combined systolic and diastolic congestive heart failure: Secondary to medication noncompliance. Has diuresed well per patient. Potassium 3.5 I will give a dose of 40 mEq now. Should have follow-up BMP as an outpatient in 1 week. Prerenal by numbers. IV diuretics discontinued. Would resume outpatient medical regimen. Okay to DC to home from a cardiac standpoint on previously prescribed medical regimen. Need for compliance was reinforced with the patient. Patient already scheduled to see Guerda on 11/23/2019, recommend follow-up as scheduled. (2) Noncompliance with medication regimen: Need for medication adherence reviewed with patient (3) Nonischemic cardiomyopathy: Unchanged. (4) CKD (chronic kidney disease), stage III: Follow (5) Pacemaker: Functioning appropriately (6) Granulomatous interstitial lung disease: Will defer to the primary team. Subjective Patient seen and examined out of bed in chair with her at bedside. States that she is feeling much better today and states that her breathing is back to baseline. She also notes that her lower extremity edema has resolved. She denies chest pain, shortness of breath, palpitations, lightheadedness, dizziness or syncope. Telemetry reviewed shows an atrially sensed V paced rhythm. Review of Systems Review of Systems: All systems reviewed & are unremarkable except as noted in HPI & below Physical Exam Physical Exam: General: Awake, alert and oriented x 3. No acute distress. HEENT: Normocephalic, atraumatic. Pupils equal, round and reactive to light and accommodation. Extraocular muscles are intact. Anicteric sclera. Moist mucous membranes. Neck: No JVD. No bruit. Cardiovascular: Regular. Positive S-4. Normal S-1 and S-2. No S-3. No murmurs or rubs. Pulmonary: Clear to auscultation B/L. No rales, rhonchi or wheezing Abdomen: Bowel sounds x 4, soft. No rebound, guarding or tenderness. No organomegaly. Extremities: No clubbing, cyanosis or edema. +2 pedal pulses bilaterally. Skin: Warm and dry. Results & Data Vital Signs (Past 12 Hours) Vital Signs Temp Pulse Pulse Resp BP BP Pulse Ox 11/02/19 11:35 36.7 C 61 20 104/70 97 11/02/19 08:25 67 11/02/19 07:27 36.9 C 71 20 123/67 97 11/02/19 04:33 36.8 C 77 20 108/64 95
[2019-11-02 16:38] LABS: Base Excess ABG 5.5 mEq/L (-9-1.8); HCO3 ABG 30 mmol/L (19-24); Oxygen Saturation ABG 94.2 % (90-95); PCO2 ABG 43 mmHg (35-46); PO2 ABG 68 mmHg (80-95); pH ABG 7.46 (7.35-7.45)
[2019-11-02 16:39] LABS: Allen Test POS (Pos)
--- NOTE | 2019-11-02 19:05 | Discharge Summary ---
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 History obtained from patient and pt's . Pt poor historian. Patient states has had worsening shortness of breath with exertion over the past month with increased shortness of breath over the past week. Reports orthopnea x couple of weeks. Having BLE edema. Has not been taking Lasix 20 mg daily as she did not want to urinate frequently. Patient reports occasional cough primarily when exposed to cold air. denies any chest pain, palpitations. Denies any fevers chills. Reports chronic intermittent nasal congestion and previously used Astelin as needed. Patient states that she used her albuterol nebulizer 3-4 times over the past week without any relief. Denies recent travel. Reports great-grandson had bronchitis 2 weeks ago. Patient seen at PCPs office 10/30/2019 for shortness of breath, lower extremity edema and was instructed to restart her daily Lasix and was started on clarithromycin. Patient states is taking 2 doses Lasix and has noticed some decreased BLE edema. Continues with shortness of breath. Denies diaphoresis, N/V/D/C, KOHLI, dizziness, syncope, vision changes, neck pain, sore throat, choking, otalgia, abdominal pain, paresthesias, weakness, rashes, urinary symptoms. History echo 05/2017: EF: 43%, grade 1 diastolic dysfunction, apical akines is/dyskinesis. Akinesis of anterior, anterior septal and inferior septal mayfield. Mild to moderate hypokinesis of anterolateral, inferior lateral and inferior mayfield. No significant valvular pathology History cardiac catheterization 2014 with normal coronary arteries, LV end- diastolic pressure high. Outpatient CT Thorax in 06/2007: IMPRESSION: Evidence of prior granulomatous disease with a calcified right hilar lymph node as well as calcified granulomas in the right lower lobe, liver, and spleen. 2.Mild emphysematous changes. Admission Exam Per Admitting Provider General: no acute distress, obese Head: normocephalic, atraumatic Eyes: PERRL, EOM's intact, conjunctiva non-injected, anicteric ENT: normal inspection external ears, nose, mucous membranes moist Neck: supple, trachea midline Lungs: no respiratory distress currently on 3L oxygen via nasal cannula with sats at 99% at rest, diminished breath sounds, faint rales bases CV: RRR, no murmur, no JVD appreciated but difficult to assess with body habitus, 1-2+ pretibial edema Abd: normal BS, soft, protuberant, non-tender Ext: no cyanosis, no calf tenderness Neuro: A&O x 3, no focal deficits noted, normal affect Skin: warm, dry Principal Diagnosis Acute diastolic CHF exacerbation ELOY Hypoxia, possibly 2/2 obesity hypoventilation syndrome Interstitial lung disease Discharge Data Allergies Allergy/AdvReac Type Severity Reaction Status Date / Time fluticasone Allergy Severe WATER ON Verified 11/01/19 06:44 LUNGS salmeterol Allergy Severe WATER ON Verified 11/01/19 06:44 LUNGS propoxyphene Allergy Mild FROM Verified 11/01/19 06:44 DARVOCET benzocaine Allergy Unknown ? Verified 11/01/19 06:44 mold Allergy Unknown uknown Verified 11/01/19 06:44 prednisone AdvReac Intermediate HYPERGLYCEM Verified 11/01/19 06:44 IA vinyl AdvReac Unknown RASH Uncoded 11/01/19 06:44 Consultations 11/01/19 09:24 ED Decision to Admit Stat 11/01/19 11:38 Consult Cardiology Routine Consult Case Management - Discharge Planning Routine Consult Pulmonology Routine Ordered Studies 11/01/19 07:00 CT angio chest PE protocol Stat Hospital Course (1) Acute on chronic combined systolic and diastolic congestive heart failure: (2) Nonischemic cardiomyopathy: (3) Granulomatous interstitial lung disease: (4) Hypoxia: (5) Acute renal failure: 74-year-old female presented with acute onset of dyspnea at home. Work-up including a CTA of the chest revealed no evidence of pulmonary embolism. She was never found to be hypoxic but did have supplemental oxygen given to her as a treatment while hospitalized. CT also revealed evidence of elevated right heart pressure in the setting of cardiomegaly with no jack pulmonary edema. There were also concerning findings suggesting an underlying a chronic interstitial lung disease and possibly hypersensitivity pneumonitis. Although there was evidence of some peribronchovascular consolidative changes with a calcified granuloma in the superior segment of the right lower lobe, and infection may not be excluded, she was not exhibiting signs of an infectious process and outpatient clarithromycin had not been helpful for her dyspnea. Clinically she appeared to be more consistent with a CHF exacerbation and she was given Lasix and admitted to the hospitalist service. Cardiology was consulted and ordered an echocardiogram revealing no significant change compared to previous study on May 2014. Specifically the echo revealed moderately reduced LV systolic function with an EF of 40 to 45%. There was dyskinesis of the heart mayfield consistent with RV pacing and grade 1 diastolic dysfunction was noted. Right ventricular systolic function was borderline reduced and there was no significant valvular pathology. She diuresed approximately 1 to 1.5 L with a couple doses of Lasix, and the following day her creatinine went from her baseline 1.25-1.67, likely a result of the Lasix. This was held. She was significantly improved clinically the next day and appeared euvolemic on exam. She was cleared by cardiology for discharge home and will be put back on her daily Lasix therapy with a repeat basic metabolic panel through her PCP next week. She was given appropriate instructions for CHF including avoiding of salt and weighing herself daily. She verbalized an understanding with intent to comply. Regarding her pulmonology work-up this was started in the hospital with multiple lab values pending at the time of discharge. Primary care follow-up will also be important for this and for referral to pulmonology as needed to set up care and continue investigation into her chest imaging abnormalities seen on CT. At time of discharge she was hemodynamically stable and afebrile and tolerating p.o. She was mentating and ambulating at baseline. She did have some new hypoxia and was sent home on oxygen. This was discussed with Pulmonary who felt her clinical picture was consistent with obesity hypoventilation synd cassie, and she should undergo a sleep study and pulm followup. Close primary care follow-up was recommended again for repeat BMP in 1 week and referral to pulmonology as outpatient to continue the investigation of her lung abnormalities. Total Time Total Time Spent Total Time Spent (In Minutes): 60 Total Time Includes: Examination of the Patient, Discharge Planning, Medication Reconciliation and Communication With Other Providers Discharge Plan Discharge Items Patient Disposition: Home - Self-Care Reason For Visit: SOB Discharge Diagnosis: Acute diastolic CHF exacerbation ELOY Hypoxia, possibly 2/2 obesity hypoventilation syndrome Interstitial lung disease Condition on Discharge: Good Activity: Resume your previous activity Non-emergency contact: Primary Care Provider Call non-emergency contact if: you have any medication questions, your symptoms worsen, your pain is not controlled, your pain is worsening, your pain is unusual for you, your pain is concerning for you and you have a fever Follow-up/Referrals: Asael Jones MD [Primary Care Provider] - Diet: Carb Consistent or DM2 and Low Sodium (2gm) Addtl Attending Provider Instructions: Please take all medications as instructed on discharge list below. It is recommended that you followup with your primary care provider within one week of discharge to ensure you are still doing well after going home. You will need some non-fasting bloodwork next week some time. This will be a BASIC METABOLIC PANEL in order to check your kidney function. It is recommended that you avoid taking metformin within 48 hours of receiving contrast. Your first dose shouldn't be before 3/7 in the morning. It is strongly recommended that you establish care with a lung specialist (buckle attaching machine operator) to continue the workup on the findings in your lungs. You were seen by Dr. Winchester from [facility] Pulmonology while in the hospital. There are many reference tests that are pending at the time of your discharge, and require interpretation and discussion with a buckle attaching machine operator. Your PCP may place a referral to this specialist at time of discharge. Please follow the CHF instructions given below and make a concerted effort to avoid salt with a maximum of 2000mg daily intake. It was a pleasure taking care of you! Please call if you have any questions or problems. You can reach a [facility] hospitalist on duty at [facility] 24 hours a day by calling [phone]. Take care of yourself. Dixie Arauz, [place] Hospitalist Addtl Card Grader Provider Instructions: Call [phone] and go to the Emergency Room if: * You have tightness or pain in your chest that does not go away with rest or Nitroglycerin * You are very short of breath even with rest Call your doctor if any of the following symptoms or problems start or get worse: * Shortness of breath or difficulty breathing * Wake up at night short of breath * Chest pain * Cough * Swelling of your hands, fee, or legs * More fatigued or tired with your normal activity * Palpitations - sudden fast heart beats WEIGHT * Weigh yourself every morning after using the bathroom. * Use the same scale. * Wear the same amount of clothing. * Write your weight down on your chart. * Call your doctor if you gain more than 2-3 pounds in 1-2 days. MEDICATIONS * Use this discharge instruction sheet for instructions. * Take your medications at the time your doctor ordered. * Do not skip a dose of your medicines. * If you miss a dose of medicine, take as soon as possible, but DO NOT DOUBLE A DOSE. * Read your medicine information when you get home. * Know all of the side effects of your medicine. * Call your doctor's office if you have any side effects. * Be sure all of your doctors know what medicine and herbs you take (including cold, flu, and herbal medicine). * Pain Medicine: If you do not get relief from your pain, please call your doctor for help. Take the following with you to your follow-up doctor appointments: * Weight Chart * Medication List * List of questions Do not drink excessive alcohol, beer or wine. Pending Studies at Discharge: Yes Studies:: pulmonology/immunology studies Stand-Alone Forms: My [facility] [employer], Smoking Cessation Medications and DC Order Prescriptions: Continued Asmanex HFA 200 mcg/actuation HFA aerosol inhaler 2 inh INHALATION DAILY RF: 0 carvedilol 12.5 mg tablet 12.5 mg PO BID RF: 0 cyanocobalamin (vitamin B-12) 100 mcg Tablet 100 mcg PO DAILY RF: 0 clopidogrel 75 mg tablet 75 mg PO DAILY RF: 0 aspirin 81 mg Tablet,Delayed Release (Dr/Ec) 81 mg PO DAILY RF: 0 metformin 1,000 mg tablet 1,000 mg PO BID RF: 0 montelukast 10 mg tablet 10 mg PO DAILY RF: 0 multivitamin with minerals [Multiple Vitamin-Minerals] Tablet 1 tab PO DAILY RF: 0 loratadine 10 mg Tablet 10 mg PO DAILY PRN (Reason: Allergy Symptoms) RF: 0 rosuvastatin 40 mg tablet 40 mg PO DAILY RF: 0 Januvia 50 mg tablet 50 mg PO DAILY RF: 0 Lantus Solostar U-100 Insulin 100 unit/mL (3 mL) insulin pen 65 unit SUBCUT BID RF: 0 furosemide [Lasix] 20 mg Tablet 20 mg PO DAILY RF: 0 albuterol sulfate 2.5 mg /3 mL (0.083 %) solution for nebulization 2.5 mg inhalation Q4H PRN (Reason: Shortness Of Breath Or Wheezing) RF: 0 Discontinued clarithromycin 500 mg Tablet 500 mg PO BID RF: 0 Discharge Orders: Discharge Order (Routine); Ordered 11/02/19 Ordered By: Dixie Arauz Admission Data Admit Date/Time: 11/01/19 09:06 Attending Provider: Dixie Arauz Admit Provider: Dixie Arauz Primary Care Provider: Asael Jones Other Providers: Filipe Dubois Muqueet Other Interventions: Discharge Summary Assessment (RN) Last Done: 11/02/19 19:05 DC Date/Time DO NOT enter until pt leaves facility: 11/02/19 19:18
--- NOTE | 2019-11-06 13:47 | Coding Query ---
CODING QUERY To promote full compliance with coding requirements relating to patient care, provider participation is requested in all cases of medical front desk specialist uncertainty. Please assist us with the question(s) below: Please clarify the meaning of ELOY. ELOY is not a valid abbreviation. Thank you. ( ) Acute Kidney Injury ( ) Present on admission ( x ) Not present on admission ( ) Acute Kidney Insufficiency ( ) Present on admission ( ) Not present on admission ( ) Other (Specify): Principal Diagnosis: "that condition established after study, to be chiefly responsible for occasioning the admission of the patient to the hospital for care." Co-Existing Principal Diagnosis: "when two or more diagnoses equally meet the criteria for principal diagnosis as determined by the circumstances of admission, diagnostic work up, and/or therapy provided, and the Alphabetic Index, Tabular List, or another coding guideline does not provide sequencing direction, any one of the diagnoses may be sequenced first." "When the physician has documented what appears to be a current diagnosis in the body of the record, but has not included the diagnosis in the final diagnostic statement, the physician should be asked whether the diagnosis should be added." (Source [facility]oding [facility] 2 QTR90. p3-4) BLANCA
[2019-11-08 16:20] LABS: Alternaria Alternata IgG 36.7 mcg/mL (<13.6); Aureobasidium pullulans IgG 29.8 mcg/mL (<13.6); Immunoglobulin IgE 81 kU/L (<OR=114); Saccharopolyspora rectivir Ab NOT DETECTED (NOT DETECTED); Thermoactinomyces candidus Ab NOT DETECTED (NOT DETECTED); Thermoactinomyces sacchari Ab NOT DETECTED (NOT DETECTED)
== END 2019-11-02 19:18 | disposition home or self-care (01) | DRG 291 ==
LOC: ED 05:36 → 2N 09:06

== ENCOUNTER 2021-09-22 14:59 | Inpatient (IN) ==
[2021-09-22 16:13] LABS: Basophils # (auto) 0.07 K/uL (0-0.2); Basophils % (auto) 0.4 %; Eosinophils # (auto) 0.24 K/uL (0-0.5); Eosinophils % (auto) 1.4 %; Hematocrit (blood only) 41.8 % (37-47); Hemoglobin 13.8 g/dL (12.0-16.0); Immature Granulocytes # (auto) 0.06 K/uL (0.00-0.02); Immature Granulocytes % (auto) 0.3 %; Lymphocytes # (auto) 1.03 K/uL (1.2-3.4); Lymphocytes % (auto) 5.9 %; Mean Corpuscular Hemoglobin 31.2 pg (25-34); Mean Corpuscular Volume 94.6 fL (80-100); Mean Platelet Volume 11.3 fL (7.4-10.4); Monocytes # (auto) 1.29 K/uL (0.11-0.59); Monocytes % (auto) 7.4 %; Neutrophils # (auto) 14.71 K/uL (1.4-6.5); Neutrophils % (auto) 84.6 %; Platelet Count 165 K/uL (130-400); RDW Coefficient of Variation 14.2 % (11.5-14.5); RDW Standard Deviation 48.7 fL (36.4-46.3); Red Blood Count 4.42 M/uL (4.2-5.4)
[2021-09-22 16:29] LABS: Albumin Globulin Ratio 0.9 (0.9-2); Albumin Level 3.4 gm/dl (3.4-5.0); BUN Creatinine Ratio 15.8 (10-20); Bilirubin,Total 0.6 mg/dl (0.2-1.0); Calcium 9.5 mg/dl (8.5-10.1); Est GFR (African American) 34.6 ml/min; Est GFR (Non-African American) 29.8 ml/min; Globulin 3.6 gm/dl (2.5-4.0); Potassium 5.2 mmol/L (3.5-5.1)
[2021-09-22 16:30] LABS: Partial Thromboplastin Ratio 0.9; Partial Thromboplastin Time 23.6 Seconds (21.0-31.0); Prothrombin Time 10.5 Seconds (9.0-12.0)
[2021-09-22] MEDS ORDERED: SODIUM CHLORIDE 0.9% 1000ML 500 ML IV ONE (16:36)
[2021-09-22] MEDS ORDERED: ACETAMINOPHEN 1000 MG/100 ML IV IV ONE (16:37)
--- NOTE | 2021-09-22 17:24 | XRay Report ---
XR chest 1V not portable CLINICAL HISTORY: fall TECHNIQUE: Single frontal radiograph of the chest was obtained. Comparison: Comparison is made to chest one view 11/01/2019 FINDINGS: No lines and tubes are seen. Cardiomegaly is noted. Lungs are underinflated. There is prominence of t he No evidence of pleural effusion or pneumothorax. IMPRESSION: Cardiomegaly and mild pulmonary edema. No evidence of acute fracture. ACT 112: Negative or not required by law. Electronically signed by: Mahesh Evans M.D. 09/22/2021 5:23 PM
--- NOTE | 2021-09-22 17:30 | XRay Report ---
XR hip LT 2V w pelvis CLINICAL HISTORY: Fall on buttocks, L hip pain TECHNIQUE: 2 views of the left hip and single frontal view of the pelvis were obtained. Comparison: None available at the time of this dictation. FINDINGS: There is no evidence of an acute fracture. The alignment is anatomic. Mild degenerative changes are s een. Vascular calcifications are noted. IMPRESSION: No evidence of acute osseous injury. ACT 112: Negative or not required by law. Electronically signed by: Mahesh Evans M.D. 09/22/2021 5:28 PM
--- NOTE | 2021-09-22 17:32 | XRay Report ---
XR knee LT 1 or 2V routine, XR tibia fibula LT 2V, XR ankle LT 2V CLINICAL HISTORY: Extremity Trama TECHNIQUE: 2 views of the left knee were obtained. 2 views of the left tibia and fibula were obtained . 2 views of the left ankle were obtained. Comparison: None available at the time of this dictation. FINDINGS: Patient is status post total knee arthroplasty. There is an acute fracture at the tibial metadiaphysi s at the distal aspect of the tibial component. A few tiny bony fragments are seen. The alignment is anatomic. Soft tissue swelling is seen in the proximal tibia as well vascular calcifications througho ut the leg. IMPRESSION: Fracture of the proximal tibia at the distal aspect of the tibial component of the knee arthroplasty. There is associated soft tissue swelling. ACT 112: Negative or not required by law. Electronically signed by: Mahesh Evnas M.D. 09/22/2021 5:31 PM
--- NOTE | 2021-09-22 18:00 | Electrocardiogram Report ---
Test Reason : Blood Pressure : / mmHG Vent. Rate : 095 BPM Atrial Rate : 095 BPM P-R Int : 188 ms QRS Dur : 168 ms QT Int : 410 ms P-R-T Axes : 073 -83 060 degrees QTc Int : 515 ms Atrial-sensed ventricular-paced rhythm Abnormal ECG When compared with ECG of 22-SEP-2021 15:20, (unconfirmed) Premature ventricular complexes are no longer Present Vent. rate has decreased BY 6 BPM Confirmed by David Brooks ([id number]) on 09/22/2021 6:00:05 PM Referred By: Confirmed By:Sathish Brooks
--- NOTE | 2021-09-22 18:03 | History & Physical Report ---
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 Tibia/fibula XR with fracture of the proximal tibia at the distal aspect of the tibial component of the knee arthroplasty. There is associated soft tissue swelling ED provider discussed with Dr. Fallon operations dispatcher for [facility] who reviewed images and feels this is likely non-operative. Ortho to see tomorrow NPO @ [facility] in case of operative need. PT/OT evaluations Received morphine prior to arrival and developed intermittent confusion and lethargy per . Hold narcotics for now. Will schedule IV Tylenol Pain control, splint to be placed in ED (2) Uncontrolled type II diabetes mellitus: Plan: Last a1c 13.7 in Mar 2021 BSG in 380s initially today - does not think she took noon dose of lantus Home regimen includes Lantus 68u BID, 10u TIDM Novolog, Trulicity Glycemic consult placed for assistance, NPO @ [facility] Repeat a1c ordered BSG AC HS (3) Leukocytosis: Plan: WBC 17. Afebrile, no evidence of infection on CXR, UA. Likely reactive 2/2 fall. No abx indicated now. Repeat CBC in AM (4) Hyperkalemia: Plan: Slightly elevated at 5.2. Started on losartan a few months ago - will hold for now (5) Combined congestive systolic and diastolic heart failure: Plan: Appears compensated. Continue home dose lasix (6) CKD (chronic kidney disease), stage III: Plan: Cr 1.65 (baseline 1.6-1.8). Monitor with daily BMP (7) HTN (hypertension): Plan: Continue carvedilol, holding losartan as discussed above (8) Asthma: Plan: Stable. Continue home inhalers, supplemental O2 HS (9) Complete heart block: Plan: S/p pacemaker placement. ECG with atrial-paced rhythm (10) Dyslipidemia: Plan: Continue statin (11) PVD (peripheral vascular disease): Plan: Continue aspirin, plavix (12) Morbid obesity due to excess calories: Plan: Deconditioned. PT/OT evaluation already ordered for periprosthetic knee fracture once seen by ortho DVT Ppx: SCDs for now Code status: FULL PCP: Robert Dispo: Admitted to [facility] tele Patient seen in collaboration with Dr. Diego. Please see addendum. History of Present Illness Chief Complaint: fall, knee pain Primary Care Provider: Asael Jones MD This is a 76yo F with a PMH of DM II, asthma, severe sleep apnea on 3L NC HS, combined systolic and diastolic heart failure, h/o complete heart block s/p pacemaker placement, LBBB, PVD, CKD III, dyslipidemia, morbid obesity and other medical problems as below who presents from home after fall. Was at home and feeling cold and ambulated over to heater when she fell onto left knee. Denies head trauma or LOC. Received 8mg morphine total en route to hospital and has seemed intermittently confused and tired since then, per at bedside. Normally ambulates while holding onto things at home for stability. Denies any fevers, chills, cough, congestion,N/V/D, abdominal pain, dysuria prior to her fall. She is on aspirin and Plavix for PVD. [facility] of [facility] 2003 [facility] ED provider discussed with Dr. Fallon operations dispatcher for [facility] who reviewed images and feels this is likely non-operative. Ortho to see tomorrow. Did not take her insulin today and is unsure about other AM medications. Allergies Allergy/AdvReac Type Severity Reaction Status Date / Time fluticasone Allergy Severe WATER ON Verified 09/22/21 17:45 LUNGS salmeterol Allergy Severe WATER ON Verified 09/22/21 17:45 LUNGS propoxyphene Allergy Mild FROM Verified 09/22/21 17:45 DARVOCET benzocaine Allergy Unknown ? Verified 09/22/21 17:45 mold Allergy Unknown uknown Verified 09/22/21 17:45 prednisone AdvReac Intermediate HYPERGLYCEM Verified 09/22/21 17:45 IA oxycodone AdvReac Hallucinati Unverified 09/22/21 17:45 ng vinyl AdvReac Unknown RASH Uncoded 09/22/21 17:45 Home Medications Medication Instructions Recorded Confirmed Type aspirin 81 mg tablet,delayed 81 mg PO DAILY 10/01/19 09/22/21 History release carvedilol 12.5 mg tablet 12.5 mg PO BID 10/01/19 09/22/21 History clopidogrel 75 mg tablet 75 mg PO DAILY 10/01/19 09/22/21 History cyanocobalamin (vitamin B-12) 100 100 mcg PO DAILY 10/01/19 09/22/21 History mcg tablet insulin glargine 100 unit/mL (3 68 unit SUBCUT BID 10/01/19 09/22/21 History mL) subcutaneous pen (Lantus Solostar U-100 Insulin) loratadine 10 mg tablet 10 mg PO DAILY PRN 10/01/19 09/22/21 History montelukast 10 mg tablet 10 mg PO DAILY 10/01/19 09/22/21 History multivitamin with minerals 1 tab PO DAILY 10/01/19 09/22/21 History (Multiple Vitamin-Minerals) albuterol sulfate 2.5 mg INHALATION Q4H PRN 11/01/19 09/22/21 History acetaminophen 325 mg tablet 325 mg PO QID PRN 09/22/21 09/22/21 History budesonide 32 mcg/actuation nasal 2 spray INTRANASAL DAILY 09/22/21 09/22/21 History spray diclofenac sodium 1 % topical gel 4 g TOPICAL QID 09/22/21 09/22/21 History dulaglutide 3 mg/0.5 mL 3 mg SUBCUT WK 09/22/21 09/22/21 History subcutaneous pen injector (Trulicity) furosemide 40 mg tablet 40 mg PO BID 09/22/21 09/22/21 History gabapentin 100 mg capsule See Rx Instructions .ROUTE .COMPLEX 09/22/21 09/22/21 History insulin aspart U-100 100 unit/mL 10 unit SUBCUT TID 09/22/21 09/22/21 History (3 mL) subcutaneous pen (Novolog Flexpen U-100 Insulin aspart) losartan 100 mg tablet 100 mg PO DAILY 09/22/21 09/22/21 History rosuvastatin 40 mg tablet 40 mg PO DAILY 09/22/21 09/22/21 History tiotropium bromide 18 mcg capsule 1 cap INHALATION DAILY 09/22/21 09/22/21 History with inhalation device (Spiriva with HandiHaler) triamcinolone acetonide 0.025 % 1 applic TOPICAL BID 09/22/21 09/22/21 History topical cream Past Med/Surg History Medical History (Updated 09/22/21 @ 19:42 by Shanelle Frost PA-C) Asthma CKD (chronic kidney disease), stage III Combined congestive systolic and diastolic heart failure Complete heart block (06/14/14) Diabetes mellitus, type II, insulin dependent Dyslipidemia Excessive daytime sleepiness Granulomatous interstitial lung disease HTN (hypertension) Morbid obesity due to excess calories Nonischemic cardiomyopathy Pacemaker Physical deconditioning PVD (peripheral vascular disease) Sleep apnea Surgical History H/O tubal ligation History of cardiac cath 2014 - normal coronary arteries; Dr Jorgensen at [facility] [place] History of carpal tunnel release History of cataract removal with insertion of prosthetic lens History of revascularization procedure of lower extremity fem/pop artery revascularization RLE; 09/2017; Dr Gill at [facility] [place] History of total knee arthroplasty 2005; bilateral Family History Mother Leukemia Son Asthma Brother Stroke Social History Smoking Status: Never smoker Second Hand Exposure: No; Hx Alcohol Use: Yes Hx Substance Use: No Preferred Language: [place] Communication Ability: Effective Shaker Screen Operator Required: No Beliefs That Will Affect Care: None Current Living Situation: Spouse Feels Safe at Home: Yes Assistive Devices: Oxygen - Continuous and Walker Review of Systems Review of Systems: At least ten systems reviewed and negative except as noted in the HPI. Physical Exam Physical Exam: Please see Dr. Diego's addendum for physical exam. Results & Data Results & Data ([facility]) Vital Signs (Past 12 Hours) Vital Signs Pulse Pulse Resp BP BP Pulse Ox 09/22/21 17:23 96 H 20 104/58 L 94 09/22/21 15:26 95 H 16 111/73 98 09/22/21 15:20 99 Laboratory Results Short CBC 09/22/21 Range/Units 15:24 WBC 17.40 H (4.8-10.8) K/uL Hgb 13.8 (12.0-16.0) g/dL Hct 41.8 (37-47) % Plt Count 165 (130-400) K/uL BMP 09/22/21 15:24 Sodium 133 L Potassium 5.2 H Chloride 93 L Carbon Dioxide 33 H BUN 26 H Creatinine 1.65 H Glucose 362 H* Calcium 9.5 Liver Function 09/22/21 Range/Units 15:24 Total Bilirubin 0.6 (0.2-1.0) mg/dl AST 29 (13-39) U/L ALT 19 (7-52) U/L Alkaline Phosphatase 67 (34-104) U/L Albumin 3.4 (3.4-5.0) gm/dl Diagnostic Findings Ankle X-Ray 09/22/21 15:49 XR knee LT 1 or 2V routine, XR tibia fibula LT 2V, XR ankle LT 2V CLINICAL HISTORY: Extremity Trama TECHNIQUE: 2 views of the left knee were obtained. 2 views of the left tibia and fibula were obtained. 2 views of the left ankle were obtained. Comparison: None available at the time of this dictation. FINDINGS: Patient is status post total knee arthroplasty. There is an acute fracture at the tibial metadiaphysis at the distal aspect of the tibial component. A few tiny bony fragments are seen. The alignment is anatomic. Soft tissue swelling is seen in the proximal tibia as well vascular calcifications throughout the leg. IMPRESSION: Fracture of the proximal tibia at the distal aspect of the tibial component of the knee arthroplasty. There is associated soft tissue swelling. ACT 112: Negative or not required by law. Electronically signed by: Mahesh Evans M.D. 09/22/2021 5:31 PM Hip/Pelvis X-Ray 09/22/21 15:49 XR hip LT 2V w pelvis CLINICAL HISTORY: Fall on buttocks, L hip pain TECHNIQUE: 2 views of the left hip and single frontal view of the pelvis were obtained. Comparison: None available at the time of this dictation. FINDINGS: There is no evidence of an acute fracture. The alignment is anatomic. Mild degenerative changes are seen. Vascular calcifications are noted. IMPRESSION: No evidence of acute osseous injury. ACT 112: Negative or not required by law. Electronically signed by: Mahesh Evans M.D. 09/22/2021 5:28 PM Knee X-Ray 09/22/21 15:50 XR knee LT 1 or 2V routine, XR tibia fibula LT 2V, XR ankle LT 2V CLINICAL HISTORY: Extremity Trama TECHNIQUE: 2 views of the left knee were obtained. 2 views of the left tibia and fibula were obtained. 2 views of the left ankle were obtained. Comparison: None available at the time of this dictation. FINDINGS: Patient is status post total knee arthroplasty. There is an acute fracture at the tibial metadiaphysis at the distal aspect of the tibial component. A few tiny bony fragments are seen. The alignment is anatomic. Soft tissue swelling is seen in the proximal tibia as well vascular calcifications throughout the leg. IMPRESSION: Fracture of the proximal tibia at the distal aspect of the tibial component of the knee arthroplasty. There is associated soft tissue swelling. ACT 112: Negative or not required by law. Electronically signed by: Mahesh Evans M.D. 09/22/2021 5:31 PM Chest X-Ray 09/22/21 15:53 XR chest 1V not portable CLINICAL HISTORY: fall TECHNIQUE: Single frontal radiograph of the chest was obtained. Comparison: Comparison is made to chest one view 11/01/2019 FINDINGS: No lines and tubes are seen. Cardiomegaly is noted. Lungs are underinflated. There is prominence of the No evidence of pleural effusion or pneumothorax. IMPRESSION: Cardiomegaly and mild pulmonary edema. No evidence of acute fracture. ACT 112: Negative or not required by law. Electronically signed by: Mahesh Evans M.D. 09/22/2021 5:23 PM Tibia/Fibula X-Ray 09/22/21 16:46 XR knee LT 1 or 2V routine, XR tibia fibula LT 2V, XR ankle LT 2V CLINICAL HISTORY: Extremity Trama TECHNIQUE: 2 views of the left knee were obtained. 2 views of the left tibia and fibula were obtained. 2 views of the left ankle were obtained. Comparison: None available at the time of this dictation. FINDINGS: Patient is status post total knee arthroplasty. There is an acute fracture at the tibial metadiaphysis at the distal aspect of the tibial component. A few tiny bony fragments are seen. The alignment is anatomic. Soft tissue swelling is seen in the proximal tibia as well vascular calcifications throughout the leg. IMPRESSION: Fracture of the proximal tibia at the distal aspect of the tibial component of the knee arthroplasty. There is associated soft tissue swelling. ACT 112: Negative or not required by law. Electronically signed by: Mahesh Evans M.D. 09/22/2021 5:31 PM ECG Additional Comments: Atrial-sensed ventricular-paced rhythm Supervising Physician Co-Signing Physician Notes Pt is a 76 y/o F with hx of Uncontrolled IDDM, HLD, Asthma, ISAIAS, Chronic respiratory failure on 3L oxygen at night, HFmrEF, CKD III, PVD, LBBB, GERD, b/l knee replacement admitted for fracture of the L proximal tibia. -Per pt pt had a fall today in the morning. She was walking to the bathroom and had mechanical fall and could not bear weight afterwards. No head trauma or syncope. PE: Obese pt, in distress due to pain Cardiac: normal S1/S2, no murmur Lungs: CTA, no wheezing or crackles Abd: obese abd, mild discomfort to palpation of the lower abd, soft MSK: hematoma below the L knee, and TTP of the L knee Psych: pt was drowsy and sleepy A/P: Proximal Tibia fracture: -Ortho consulted - Pain meds prn but will hold off narcotic for now bc pt appeared little sedated -will continue to monitor the L leg hematoma --- will continue Plavix and aspirin due to CHF and PVD -PT/OT eval Hyperglycemia with Uncontrolled IDDM: - not in DKA or HHS -pts recent A1C was 13.7 -will continue home insulin regimen -pharmacy consult for glucose management Leukocytosis and fall: -will get UA -Pt is afebrile -PT/OT eval Other chronic issues: plan as above Agree with A/P by Shanelle Frost PA-C
[2021-09-22] MEDS ORDERED: PHARMACY GLYCEMIC MGMT CONSULT PRN (18:09)
--- NOTE | 2021-09-22 18:21 | Emergency Department Note ---
Impression & Plan Shital-prosthetic fracture of proximal tibia, Fracture of proximal end of fibula, Hyperglycemia, CKD (chronic kidney disease), Leukocytosis ED Provider Note NAME: MAGGY TELLEZ AGE: 76 SEX: F ARRIVES VIA: Ambulance INFORMANT: Patient ED PROVIDER(S): Romulo Vega MD CHIEF COMPLAINT: Fall, Left leg pain. PLAN: Disposition: Admit MEDICAL DECISION MAKING: The patient is a pleasant 76-year-old woman with a past medical history of CKD, asthma, spinal stenosis who presents to the emergency department with left hip knee and lower leg pain after having a fall prior to arrival where she reports she lost her balance. She denies hitting her head or losing consciousness. She denies any fevers, chills, cough congestion, GI or symptoms prior to her fall. She is on aspirin and Plavix but denies anticoagulation. On arrival the patient is uncomfortable but no acute distress, afebrile stable vital signs. She has edema and ecchymosis of the left lower leg distal to her knee. Range of motion at the knee is limited secondary to pain. Distal PMS intact. Pelvis is stable. WBC 17.4K, nonspecific and likely related to her fall and suspected fracture. H/H and platelets within normal limits. Creatinine 1.6 within prior range of values in setting of CKD. Chemistry without metabolic acidosis. Initial glucose 360. LFTs are unremarkable. COVID-19 RNA, HUSSEIN test was negative. EKG is paced. Chest x-ray negative for acute cardiopulmonary process. X-ray of the left hip and pelvis also negative. Plain films of the left knee and tib-fib do demonstrate proximal tibial fracture adjacent to prior knee arthroplasty. Given the patient's pain and impact on ability to ambulate patient agrees with plan for admission. Patient did have her knee replacements in 2003 with [facility] orthopedics. Case was discussed with Dr. Fallon, [facility] orthopedics on-call who reviewed the images and suspects likely will be nonoperative. Appreciate recommendations for immobilization with bulky Steve dressing. Case was discussed with Fred Palacio PAC with Dr. Diego [facility] hospitalist to evaluate the patient for admission. This patient was managed with the assistance of resident, Dr. Bahena. I discussed the case with the resident, examined the patient, and confirm the findings and plan as documented in this note. Triage Nursing notes reviewed and agree them. Prior medical records reviewed Vital Signs: reviewed and remarkable for no significant abnormalities Differential diagnosis: Fracture, subluxation, dislocation, contusion, ligamentous injury, neurovascular , compartment syndrome, rhabdomyolysis, as well as other pathologies. ER treatment provided: See below. Diagnostics interpreted by me: ECG: Atrial sensed ventricular paced rhythm, 95 bpm, no ectopy, no overt acute ischemia. Cardiac Monitoring: An order for continuous cardiac monitoring was placed and demonstrated atrial sensed ventricular paced rhythm, 95 bpm, no ectopy. Laboratory studies: See below Imaging studies: See below Consultation(s): Shanelle Frost [facility] PAC with Dr. Diego, [facility] hospitalist to evaluate the patient for admission. Dr. Fallon, [facility] orthpedics on-call. HPI: The patient is a pleasant 76-year-old woman with a past medical history of CKD, asthma, spinal stenosis who presents to the emergency department with left hip knee and lower leg pain after having a fall prior to arrival where she reports she lost her balance. She denies hitting her head or losing consciousness. She denies any fevers, chills, cough congestion, GI or symptoms prior to her fall. She is on aspirin and Plavix but denies anticoagulation. ROS: See above HPI for pertinent positives & negatives. A total of 10 systems reviewed and were otherwise negative. PAST MEDICAL HISTORY:See Below PAST SURGICAL HISTORY:See Below FAMILY HISTORY:See Below SOCIAL HISTORY:See Below HOME MEDICATIONS:See Below ALLERGIES:See Below VITALS:See Below PHYSICAL EXAMINATION: GENERAL: Awake, alert, uncomfortable, chronically ill-appearing, in no distress, BMI 50.7. HENT: Normocephalic, atraumatic. Oropharynx unremarkable. EYES: Normal conjunctiva. Sclera non-icteric. NECK: Supple. No nuchal rigidity. FROM. No JVD. RESPIRATORY: Clear to auscultation. CARDIAC: Regular rate, normal rhythm. Extremities warm and well perfused. Pulses equal. ABDOMEN: Soft, non-distended. No tenderness to palpation. No rebound or guarding. No masses. RECTAL: Deferred. MUSCULOSKELETAL: Chest examination reveals no tenderness. The back is symmetrical on inspection without obvious abnormality. There is no CVA tenderness to palpation. LOWER EXTREMITIES: Edema and ecchymosis of the left lower leg beginning just distal to her knee. Range of motion at the knee is limited secondary to pain. Distal PMS intact. Pelvis is stable. NEURO: Normal sensorium. No sensory or motor deficits noted. SKIN: No rash or jaundice noted. ED COURSE: Procedures: Splint Care: After the Bulky Steve/ortho-glass splint was placed by the chemistry research assistant, I examined the splint and confirmed proper application/placement/position. Neurovascular status was intact both proximal and distal to the splinted area. Romulo Vega MD Past Med/Surg History Medical History Asthma CKD (chronic kidney disease), stage III Combined congestive systolic and diastolic heart failure Complete heart block (06/14/14) Diabetes mellitus, type II, insulin dependent Dyslipidemia Excessive daytime sleepiness Granulomatous interstitial lung disease HTN (hypertension) Morbid obesity due to excess calories Nonischemic cardiomyopathy Pacemaker Physical deconditioning PVD (peripheral vascular disease) Sleep apnea Surgical History H/O tubal ligation History of cardiac cath 2014 - normal coronary arteries; Dr Jorgensen at [facility] History of carpal tunnel release History of cataract removal with insertion of prosthetic lens History of revascularization procedure of lower extremity fem/pop artery revascularization RLE; 09/2017; Dr Gill at [facility] History of total knee arthroplasty 2005; bilateral Family History Mother Leukemia Son Asthma Brother Stroke Social History Smoking Status: Never smoker Second Hand Exposure: No; Hx Alcohol Use: Yes Hx Substance Use: No Preferred Language: [place] Communication Ability: Effective Operator Receptionist Required: No Beliefs That Will Affect Care: None Current Living Situation: Spouse Feels Safe at Home: Yes Assistive Devices: Oxygen - Continuous and Walker Allergies Allergies Allergy/AdvReac Type Severity Reaction Status Date / Time fluticasone Allergy Severe WATER ON Verified 09/22/21 17:45 LUNGS salmeterol Allergy Severe WATER ON Verified 09/22/21 17:45 LUNGS propoxyphene Allergy Mild FROM Verified 09/22/21 17:45 DARVOCET benzocaine Allergy Unknown ? Verified 09/22/21 17:45 mold Allergy Unknown uknown Verified 09/22/21 17:45 prednisone AdvReac Intermediate HYPERGLYCEM Verified 09/22/21 17:45 IA oxycodone AdvReac Hallucinati Unverified 09/22/21 17:45 ng vinyl AdvReac Unknown RASH Uncoded 09/22/21 17:45 Home Meds Home Medications Medication Instructions Recorded Confirmed aspirin 81 mg tablet,delayed 81 mg PO DAILY 10/01/19 09/22/21 release carvedilol 12.5 mg tablet 12.5 mg PO BID 10/01/19 09/22/21 clopidogrel 75 mg tablet 75 mg PO DAILY 10/01/19 09/22/21 cyanocobalamin (vitamin B-12) 100 100 mcg PO DAILY 10/01/19 09/22/21 mcg tablet insulin glargine 100 unit/mL (3 68 unit SUBCUT BID 10/01/19 09/22/21 mL) subcutaneous pen (Lantus Solostar U-100 Insulin) loratadine 10 mg tablet 10 mg PO DAILY PRN 10/01/19 09/22/21 montelukast 10 mg tablet 10 mg PO DAILY 10/01/19 09/22/21 multivitamin with minerals 1 tab PO DAILY 10/01/19 09/22/21 (Multiple Vitamin-Minerals) albuterol sulfate 2.5 mg INHALATION Q4H PRN 11/01/19 09/22/21 acetaminophen 325 mg tablet 325 mg PO QID PRN 09/22/21 09/22/21 budesonide 32 mcg/actuation nasal 2 spray INTRANASAL DAILY 09/22/21 09/22/21 spray diclofenac sodium 1 % topical gel 4 g TOPICAL QID 09/22/21 09/22/21 dulaglutide 3 mg/0.5 mL 3 mg SUBCUT WK 09/22/21 09/22/21 subcutaneous pen injector (Trulicity) furosemide 40 mg tablet 40 mg PO BID 09/22/21 09/22/21 gabapentin 100 mg capsule See Rx Instructions .ROUTE .COMPLEX 09/22/21 09/22/21 insulin aspart U-100 100 unit/mL 10 unit SUBCUT TID 09/22/21 09/22/21 (3 mL) subcutaneous pen (Novolog Flexpen U-100 Insulin aspart) losartan 100 mg tablet 100 mg PO DAILY 09/22/21 09/22/21 rosuvastatin 40 mg tablet 40 mg PO DAILY 09/22/21 09/22/21 tiotropium bromide 18 mcg capsule 1 cap INHALATION DAILY 09/22/21 09/22/21 with inhalation device (Spiriva with HandiHaler) triamcinolone acetonide 0.025 % 1 applic TOPICAL BID 09/22/21 09/22/21 topical cream Results & Data (ED) Vital Signs Vital Signs - 24 hr 09/22/21 15:20 09/22/21 15:26 09/22/21 17:23 Pulse Rate 95 H Pulse Rate [Apical] 96 H Pulse Rhythm Regular Pulse Strength Normal Respiratory Rate 16 20 Respiratory Effort / Characteristics Non-Labored Spontaneous Non-Labored Spontaneous Respiratory Depth Normal Normal Respiratory Pattern Regular Regular Blood Pressure 111/73 Blood Pressure [Right Radial Artery] 104/58 L Blood Pressure Mean 85 Blood Pressure Mean [Right Radial Artery] 73 Blood Pressure Position [Right Radial Artery] Pulse Oximetry 99 98 94 Oxygen Delivery Method Nasal Cannula Nasal Cannula Nasal Cannula Oxygen Flow Rate 3 3 2 Sepsis Recent Fever Within 48 Hours No Sepsis New/Unexplained Change in Mental Status N/A Sepsis Action Taken by Nursing No Action Required 09/22/21 19:00 Pulse Rate Pulse Rate [Apical] 93 H Pulse Rhythm Pulse Strength Respiratory Rate 20 Respiratory Effort / Characteristics Non-Labored Spontaneous Respiratory Depth Normal Respiratory Pattern Regular Blood Pressure Blood Pressure [Right Radial Artery] 124/73 Blood Pressure Mean Blood Pressure Mean [Right Radial Artery] 90 Blood Pressure Position [Right Radial Artery] Sitting Pulse Oximetry 96 Oxygen Delivery Method Nasal Cannula Oxygen Flow Rate 4 Sepsis Recent Fever Within 48 Hours Sepsis New/Unexplained Change in Mental Status Sepsis Action Taken by Nursing Laboratory Data Attestation: I reviewed the patient's lab results. Result diagrams: 09/22/21 15:24 09/22/21 15:24 Lab Results 09/22/21 09/22/21 09/22/21 Range/Units 15:24 15:24 15:24 WBC 17.40 H (4.8-10.8) K/uL RBC 4.42 (4.2-5.4) M/uL Hgb 13.8 (12.0-16.0) g/dL Hct 41.8 (37-47) % MCV 94.6 (80-100) fL MCH 31.2 (25-34) pg MCHC 33.0 (32-36) g/dL RDW Std Deviation 48.7 H (36.4-46.3) fL RDW Coeff of Javier 14.2 (11.5-14.5) % Plt Count 165 (130-400) K/uL MPV 11.3 H (7.4-10.4) fL Immature Gran % (Auto) 0.3 % Neut % (Auto) 84.6 % Lymph % (Auto) 5.9 % [place] % (Auto) 7.4 % Eos % (Auto) 1.4 % Baso % (Auto) 0.4 % Neut # (Auto) 14.71 H (1.4-6.5) K/uL Lymph # (Auto) 1.03 L (1.2-3.4) K/uL [place] # (Auto) 1.29 H (0.11-0.59) K/uL Eos # (Auto) 0.24 (0-0.5) K/uL Baso # (Auto) 0.07 (0-0.2) K/uL Immature Gran # (Auto) 0.06 H (0.00-0.02) K/uL PT 10.5 (9.0-12.0) Seconds INR 1.0 (0.9-1.1) APTT 23.6 (21.0-31.0) Seconds PTT Ratio 0.9 Sodium 133 L (136-145) mmol/L Potassium 5.2 H (3.5-5.1) mmol/L Chloride 93 L (98-107) mmol/L Carbon Dioxide 33 H (21-32) mmol/L Anion Gap 7 (3-11) BUN 26 H (6-23) mg/dl Creatinine 1.65 H (0.6-1.2) mg/dl Est Cr Clr Drug Dosing 41.0 ml/min Est GFR ( Amer) 34.6 ml/min Est GFR (Non-Af Amer) 29.8 ml/min BUN/Creatinine Ratio 15.8 (10-20) Glucose 362 H* (70-99(Fasting)) mg/dl POC Glucose (70-99) mg/dl Calcium 9.5 (8.5-10.1) mg/dl Total Bilirubin 0.6 (0.2-1.0) mg/dl AST 29 (13-39) U/L ALT 19 (7-52) U/L Alkaline Phosphatase 67 (34-104) U/L Total Protein 7.0 (6.0-8.3) gm/dl Albumin 3.4 (3.4-5.0) gm/dl Globulin 3.6 (2.5-4.0) gm/dl Albumin/Globulin Ratio 0.9 (0.9-2) Urine Color Urine Appearance (Clear) Urine pH (4.5-7.5) Ur Specific [place] (1.000-1.030) Urine Protein (Negative) Urine Glucose (UA) (Negative) Urine Ketones (Negative) Urine Blood (Negative) Urine Nitrite (Negative) Urine Bilirubin (Negative) Urine Urobilinogen (Negative) Ur Leukocyte Esterase (Negative) Urine WBC (Auto) (0-5) /hpf Urine RBC (Auto) (0-4) /hpf U Hyaline Cast (Auto) (0-5) /lpf U Epithel Cells (Auto) (0-5) /lpf Urine Bacteria (Auto) (Negative) SARS-CoV-2, RNA, NAAT (NEGATIVE) 09/22/21 09/22/21 09/22/21 Range/Units 16:30 17:47 19:21 WBC (4.8-10.8) K/uL RBC (4.2-5.4) M/uL Hgb (12.0-16.0) g/dL Hct (37-47) % MCV (80-100) fL MCH (25-34) pg MCHC (32-36) g/dL RDW Std Deviation (36.4-46.3) fL RDW Coeff of Javier (11.5-14.5) % Plt Count (130-400) K/uL MPV (7.4-10.4) fL Immature Gran % (Auto) % Neut % (Auto) % Lymph % (Auto) % [place] % (Auto) % Eos % (Auto) % Baso % (Auto) % Neut # (Auto) (1.4-6.5) K/uL Lymph # (Auto) (1.2-3.4) K/uL [place] # (Auto) (0.11-0.59) K/uL Eos # (Auto) (0-0.5) K/uL Baso # (Auto) (0-0.2) K/uL Immature Gran # (Auto) (0.00-0.02) K/uL PT (9.0-12.0) Seconds INR (0.9-1.1) APTT (21.0-31.0) Seconds PTT Ratio Sodium (136-145) mmol/L Potassium (3.5-5.1) mmol/L Chloride (98-107) mmol/L Carbon Dioxide (21-32) mmol/L Anion Gap (3-11) BUN (6-23) mg/dl Creatinine (0.6-1.2) mg/dl Est Cr Clr Drug Dosing ml/min Est GFR ( Amer) ml/min Est GFR (Non-Af Amer) ml/min BUN/Creatinine Ratio (10-20) Glucose (70-99(Fasting)) mg/dl POC Glucose 348 H* (70-99) mg/dl Calcium (8.5-10.1) mg/dl Total Bilirubin (0.2-1.0) mg/dl AST (13-39) U/L ALT (7-52) U/L Alkaline Phosphatase (34-104) U/L Total Protein (6.0-8.3) gm/dl Albumin (3.4-5.0) gm/dl Globulin (2.5-4.0) gm/dl Albumin/Globulin Ratio (0.9-2) Urine Color Yellow Urine Appearance Clear (Clear) Urine pH 6.5 (4.5-7.5) Ur Specific [place] 1.016 (1.000-1.030) Urine Protein Trace H (Negative) Urine Glucose (UA) 3+ H (Negative) Urine Ketones Negative (Negative) Urine Blood 1+ H (Negative) Urine Nitrite Negative (Negative) Urine Bilirubin Negative (Negative) Urine Urobilinogen Negative (Negative) Ur Leukocyte Esterase 1+ H (Negative) Urine WBC (Auto) 1-5 (0-5) /hpf Urine RBC (Auto) 0-4 (0-4) /hpf U Hyaline Cast (Auto) 0 (0-5) /lpf U Epithel Cells (Auto) 20-30 H (0-5) /lpf Urine Bacteria (Auto) 4+ H (Negative) SARS-CoV-2, RNA, NAAT NEGATIVE (NEGATIVE) 09/22/21 Range/Units 19:31 WBC (4.8-10.8) K/uL RBC (4.2-5.4) M/uL Hgb (12.0-16.0) g/dL Hct (37-47) % MCV (80-100) fL MCH (25-34) pg MCHC (32-36) g/dL RDW Std Deviation (36.4-46.3) fL RDW Coeff of Javier (11.5-14.5) % Plt Count (130-400) K/uL MPV (7.4-10.4) fL Immature Gran % (Auto) % Neut % (Auto) % Lymph % (Auto) % [place] % (Auto) % Eos % (Auto) % Baso % (Auto) % Neut # (Auto) (1.4-6.5) K/uL Lymph # (Auto) (1.2-3.4) K/uL [place] # (Auto) (0.11-0.59) K/uL Eos # (Auto) (0-0.5) K/uL Baso # (Auto) (0-0.2) K/uL Immature Gran # (Auto) (0.00-0.02) K/uL PT (9.0-12.0) Seconds INR (0.9-1.1) APTT (21.0-31.0) Seconds PTT Ratio Sodium (136-145) mmol/L Potassium (3.5-5.1) mmol/L Chloride (98-107) mmol/L Carbon Dioxide (21-32) mmol/L Anion Gap (3-11) BUN (6-23) mg/dl Creatinine (0.6-1.2) mg/dl Est Cr Clr Drug Dosing ml/min Est GFR ( Amer) ml/min Est GFR (Non-Af Amer) ml/min BUN/Creatinine Ratio (10-20) Glucose (70-99(Fasting)) mg/dl POC Glucose 367 H* (70-99) mg/dl Calcium (8.5-10.1) mg/dl Total Bilirubin (0.2-1.0) mg/dl AST (13-39) U/L ALT (7-52) U/L Alkaline Phosphatase (34-104) U/L Total Protein (6.0-8.3) gm/dl Albumin (3.4-5.0) gm/dl Globulin (2.5-4.0) gm/dl Albumin/Globulin Ratio (0.9-2) Urine Color Urine Appearance (Clear) Urine pH (4.5-7.5) Ur Specific [place] (1.000-1.030) Urine Protein (Negative) Urine Glucose (UA) (Negative) Urine Ketones (Negative) Urine Blood (Negative) Urine Nitrite (Negative) Urine Bilirubin (Negative) Urine Urobilinogen (Negative) Ur Leukocyte Esterase (Negative) Urine WBC (Auto) (0-5) /hpf Urine RBC (Auto) (0-4) /hpf U Hyaline Cast (Auto) (0-5) /lpf U Epithel Cells (Auto) (0-5) /lpf Urine Bacteria (Auto) (Negative) SARS-CoV-2, RNA, NAAT (NEGATIVE) Administered Medications Ceftriaxone Sodium 2,000 mg/ (Dextrose) 50 mls @ 100 mls/hr IV Q24H JEY; Protocol Stop: 09/27/21 19:59 Last Admin: 09/22/21 20:14 Dose: 100 mls/hr Documented by: [id number] Insulin Aspart (Insulin Aspart Per Unit) 0 units SC Q6 JEY Stop: 10/22/21 18:59 Last Admin: 09/22/21 19:50 Dose: 23 units Documented by: [id number] Cosigned by: [id number] Discontinued Medications Acetaminophen (Acetaminophen 1000 Mg/100 Ml Iv) 1,000 mg IV ONE ONE Stop: 09/22/21 16:38 Last Admin: 09/22/21 17:22 Dose: 1,000 mg Documented by: [id number] Sodium Chloride (Nss 1000ml) 500 mls @ 999 mls/hr IV .Q31M ONE Stop: 09/22/21 17:06 Last Infusion: 09/22/21 19:34 Dose: 0 mls/hr Documented by: [id number] Admin: 09/22/21 17:22 Dose: 999 mls/hr Documented by: [id number] Insulin Glargine (Insulin Glargine Solostar 100 Units/Ml 3 Ml Pen) 90 units SC ONE ONE Stop: 09/22/21 19:46 Last Admin: 09/22/21 20:15 Dose: 90 units Documented by: [id number] Cosigned by: [id number] Imaging Data Radiologist's Impression: Ankle X-Ray 09/22/21 15:49 XR knee LT 1 or 2V routine, XR tibia fibula LT 2V, XR ankle LT 2V CLINICAL HISTORY: Extremity Trama TECHNIQUE: 2 views of the left knee were obtained. 2 views of the left tibia and fibula were obtained. 2 views of the left ankle were obtained. Comparison: None available at the time of this dictation. FINDINGS: Patient is status post total knee arthroplasty. There is an acute fracture at the tibial metadiaphysis at the distal aspect of the tibial component. A few tiny bony fragments are seen. The alignment is anatomic. Soft tissue swelling is seen in the proximal tibia as well vascular calcifications throughout the leg. IMPRESSION: Fracture of the proximal tibia at the distal aspect of the tibial component of the knee arthroplasty. There is associated soft tissue swelling. ACT 112: Negative or not required by law. Electronically signed by: Mahesh Evans M.D. 09/22/2021 5:31 PM Hip/Pelvis X-Ray 09/22/21 15:49 XR hip LT 2V w pelvis CLINICAL HISTORY: Fall on buttocks, L hip pain TECHNIQUE: 2 views of the left hip and single frontal view of the pelvis were obtained. Comparison: None available at the time of this dictation. FINDINGS: There is no evidence of an acute fracture. The alignment is anatomic. Mild degenerative changes are seen. Vascular calcifications are noted. IMPRESSION: No evidence of acute osseous injury. ACT 112: Negative or not required by law. Electronically signed by: Mahesh Evans M.D. 09/22/2021 5:28 PM Knee X-Ray 09/22/21 15:50 XR knee LT 1 or 2V routine, XR tibia fibula LT 2V, XR ankle LT 2V CLINICAL HISTORY: Extremity Trama TECHNIQUE: 2 views of the left knee were obtained. 2 views of the left tibia and fibula were obtained. 2 views of the left ankle were obtained. Comparison: None available at the time of this dictation. FINDINGS: Patient is status post total knee arthroplasty. There is an acute fracture at the tibial metadiaphysis at the distal aspect of the tibial component. A few tiny bony fragments are seen. The alignment is anatomic. Soft tissue swelling is seen in the proximal tibia as well vascular calcifications throughout the leg. IMPRESSION: Fracture of the proximal tibia at the distal aspect of the tibial component of the knee arthroplasty. There is associated soft tissue swelling. ACT 112: Negative or not required by law. Electronically signed by: Mahesh Evans M.D. 09/22/2021 5:31 PM Chest X-Ray 09/22/21 15:53 XR chest 1V not portable CLINICAL HISTORY: fall TECHNIQUE: Single frontal radiograph of the chest was obtained. Comparison: Comparison is made to chest one view 11/01/2019 FINDINGS: No lines and tubes are seen. Cardiomegaly is noted. Lungs are underinflated. There is prominence of the No evidence of pleural effusion or pneumothorax. IMPRESSION: Cardiomegaly and mild pulmonary edema. No evidence of acute fracture. ACT 112: Negative or not required by law. Electronically signed by: Mahesh Evans M.D. 09/22/2021 5:23 PM Tibia/Fibula X-Ray 09/22/21 16:46 XR knee LT 1 or 2V routine, XR tibia fibula LT 2V, XR ankle LT 2V CLINICAL HISTORY: Extremity Trama TECHNIQUE: 2 views of the left knee were obtained. 2 views of the left tibia and fibula were obtained. 2 views of the left ankle were obtained. Comparison: None available at the time of this dictation. FINDINGS: Patient is status post total knee arthroplasty. There is an acute fracture at the tibial metadiaphysis at the distal aspect of the tibial component. A few tiny bony fragments are seen. The alignment is anatomic. Soft tissue swelling is seen in the proximal tibia as well vascular calcifications throughout the leg. IMPRESSION: Fracture of the proximal tibia at the distal aspect of the tibial component of the knee arthroplasty. There is associated soft tissue swelling. ACT 112: Negative or not required by law. Electronically signed by: Mahesh Evans M.D. 09/22/2021 5:31 PM Discharge Plan Visit Data Chief Complaint: Fall Stated Complaint: FALL, L LEG INJURY ED Provider: Romulo Vega ED Midlevel Provider: Cristhian Bahena Discharge Problem: Shital-prosthetic fracture of proximal tibia, Fracture of proximal end of fibula, Hyperglycemia, CKD (chronic kidney disease), Leukocytosis Forms Stand Alone Forms: [facility] [employer] Prescriptions Prescriptions: No Action carvedilol 12.5 mg tablet 12.5 mg PO BID RF: 0 cyanocobalamin (vitamin B-12) 100 mcg Tablet 100 mcg PO DAILY RF: 0 clopidogrel 75 mg tablet 75 mg PO DAILY RF: 0 aspirin 81 mg Tablet,Delayed Release (Dr/Ec) 81 mg PO DAILY RF: 0 montelukast 10 mg tablet 10 mg PO DAILY RF: 0 Multiple Vitamin-Minerals Tablet 1 tab PO DAILY RF: 0 loratadine 10 mg Tablet 10 mg PO DAILY PRN (Reason: Allergy Symptoms) RF: 0 Lantus Solostar U-100 Insulin 100 unit/mL (3 mL) insulin pen 68 unit SUBCUT BID RF: 0 albuterol sulfate 2.5 mg /3 mL (0.083 %) solution for nebulization 2.5 mg inhalation Q4H PRN (Reason: Shortness Of Breath Or Wheezing) RF: 0 budesonide 32 mcg/actuation [place],Non-Aerosol 2 spray INTRANASAL DAILY RF: 0 acetaminophen 325 mg Tablet 325 mg PO QID PRN (Reason: Pain) RF: 0 triamcinolone acetonide 0.025 % Cream 1 applic TOPICAL BID RF: 0 gabapentin 100 mg capsule See Rx Instructions .ROUTE .COMPLEX RF: 0 losartan 100 mg tablet 100 mg PO DAILY RF: 0 insulin aspart U-100 [Novolog Flexpen U-100 Insulin] 100 unit/mL (3 mL) insulin pen 10 unit SUBCUT TID RF: 0 rosuvastatin 40 mg Tablet 40 mg PO DAILY RF: 0 Spiriva with HandiHaler 18 mcg Capsule, W/Inhalation Device 1 cap INHALATION DAILY RF: 0 diclofenac sodium 1 % Gel 4 g TOPICAL QID RF: 0 Trulicity 3 mg/0.5 mL pen injector 3 mg SUBCUT WK RF: 0 furosemide 40 mg tablet 40 mg PO BID RF: 0 Referrals Referrals: Asael Jones MD [Primary Care Provider] -
[2021-09-22] MEDS ORDERED: CARBOHYDRATES FOR HYPOGLYCEMIA PO PRN (19:00)
[2021-09-22] MEDS ORDERED: GLUCOSE 40% GEL 15 GM TUBE PO PRN (19:00)
[2021-09-22] MEDS ORDERED: DEXTROSE 50% 50 ML SYRINGE IV PRN (19:00)
[2021-09-22] MEDS ORDERED: GLUCOSE 10 TABS/TUBE PO PRN (19:00)
[2021-09-22] MEDS ORDERED: GLUCAGON FOR INJ 1 MG VIAL IM PRN (19:00)
[2021-09-22 19:34] LABS: Appearance Urine Clear (Clear); Bacteria Urine Automated 4+ (Negative); Bilirubin Urine Negative (Negative); Blood Urine 1+ (Negative); Cast Urine Automated 0 /lpf (0-5); Color Urine Yellow; Epithelial Cell Urine Auto 20-30 /lpf (0-5); Glucose Urine UA 3+ (Negative); Ketones Urine Negative (Negative); Leukocyte Esterase Urine 1+ (Negative); Nitrite Urine Negative (Negative); Protein Urine Trace (Negative); RBC Urine Automated 0-4 /hpf (0-4); Specific Gravity Urine 1.016 (1.000-1.030); Urobilinogen Urine Negative (Negative); pH Urine 6.5 (4.5-7.5)
[2021-09-22] MEDS ORDERED: INSULIN GLARGINE SOLOSTAR 100 UNITS/ML 3 ML PEN SC ONE (19:45)
[2021-09-22] MEDS: INSULIN ASPART PER UNIT SC SCH (19:50)
--- NOTE | 2021-09-22 19:51 | Pharmacy Report ---
Pharmacy Glycemic Short Note 2 - Date of Service September 22, 2021 - Glycemic Short BSG Results (Last 24 hours): 09/22/21 09/22/21 09/22/21 15:24 17:47 19:31 Glucose 362 H* POC Glucose 348 H* 367 H* OUTPATIENT ANTIDIABETIC REGIMEN: * Lantus 68 units bid, Novolog 10 units tid, trulicity * A1c 13.7% per provider notes from 03/2021 ASSESSMENT: * 76 year old admitted after fall. PMHx significant for pacemaker placement, morbid obesity, CKD III, hx bilateral knee replacements. Ortho to see patient tomorrow, per notes likely non-operative. Confirmed with patient that she did not take any Lantus insulin today * She confirms her last Lantus dose was yesterday - BSG this evening elevated at ~348. Her total daily dose of Lantus is ~136 units a day, will reduce this about ~30% for NPO status and give now dose * Started novolog Q6 hr checks for additional coverage PLAN FOR INPATIENT GLYCEMIC CONTROL: * Hold outpatient oral diabetes medications * Basal insulin * Lantus 90 units x 1 (patient did not take any Lantus today, reduced TDD by ~30%) * Bolus insulin * NovoLog per scale ACHS or Q6hrs while NPO * Goal Range: Low 110 mg/dL - High 140 mg/dL * Correction Factor: 10 mg/dL/unit * Nutritional / Prandial insulin per carb ratio of 1 unit per 4 grams CHO consumed PLAN FOR DISCHARGE: * TBD
[2021-09-22] MEDS ORDERED: cefTRIAXone SODIUM 2,000 MG in DEXTROSE 5% 50 ML IV SCH (20:00)
[2021-09-22] MEDS ORDERED: GABAPENTIN 100 MG CAP PO SCH (21:14)
[2021-09-22] MEDS ORDERED: ACETAMINOPHEN 1000 MG/100 ML IV IV SCH (21:14)
[2021-09-22] MEDS ORDERED: ALBUTEROL 0.083% NEBU SOLN 3 ML VIAL INH PRN (21:14)
[2021-09-22] MEDS ORDERED: ONDANSETRON INJ 2 MG/ML 2 ML VIAL IV PRN (21:14)
[2021-09-22] MEDS ORDERED: POLYETHYLENE (MIRALAX) 17 GM PACK PO PRN (21:14)
[2021-09-22] MEDS: TRIAMCINOLONE ACET 0.025% CR 15 GM TUBE TOP SCH (22:23)
[2021-09-22] MEDS: DICLOFENAC SOD 1% GEL 100 GM TUBE EXT SCH (22:23)
[2021-09-22] MEDS: carvediloL 12.5 MG TAB PO SCH (22:34)
[2021-09-22] MEDS: FUROSEMIDE 40 MG TAB PO SCH (22:35)
[2021-09-22] MEDS: GABAPENTIN 100 MG CAP PO SCH (22:35)
[2021-09-23] MEDS: INSULIN ASPART PER UNIT SC SCH ×5 (00:23→22:56)
[2021-09-23] MEDS: ACETAMINOPHEN 1,000 MG/100 ML VIAL IV SCH ×3 (01:54→18:00)
[2021-09-23] MEDS ORDERED: PIPERACILL/TAZOBAC CONSULT ACTIVE PRN (03:10)
[2021-09-23] MEDS ORDERED: VANCOMYCIN CONSULT ACTIVE PRN (03:10)
[2021-09-23 03:15] LABS: Hematocrit (blood only) 39.9 % (37-47); Hemoglobin 12.9 g/dL (12.0-16.0); Mean Corpuscular Hemoglobin 30.9 pg (25-34); Mean Corpuscular Hgb Conc 32.3 g/dL (32-36); Mean Corpuscular Volume 95.5 fL (80-100); Mean Platelet Volume 10.7 fL (7.4-10.4); Platelet Count 148 K/uL (130-400); RDW Coefficient of Variation 14.5 % (11.5-14.5); RDW Standard Deviation 50.5 fL (36.4-46.3); Red Blood Count 4.18 M/uL (4.2-5.4); White Blood Count 17.95 K/uL (4.8-10.8)
[2021-09-23] MEDS ORDERED: VANCOMYCIN HCL 1,000 MG in SODIUM CHLORIDE 0.9% 250 ML IV SCH (03:15)
[2021-09-23] MEDS ORDERED: SODIUM CHLORIDE 0.9% 500 ML IV SCH (03:15)
[2021-09-23 03:30] LABS: Allen Test Pos (Pos); Base Excess ABG 5.8 mEq/L (-9-1.8); HCO3 ABG 32 mmol/L (19-24); Oxygen Saturation ABG 96.3 % (90-95); PCO2 ABG 52 mmHg (35-46); PO2 ABG 84 mmHg (80-95); pH ABG 7.41 (7.35-7.45)
[2021-09-23] MEDS ORDERED: PIPERACILLIN/TAZOBACTAM 4.5 GM in DEXTROSE 5% 100 ML IV ONE (03:30)
[2021-09-23 03:35] LABS: BUN Creatinine Ratio 13.9 (10-20); Calcium 9.2 mg/dl (8.5-10.1); Creatinine Clr Calc Pharmacy 33.5 ml/min; Est GFR (African American) 27.1 ml/min; Est GFR (Non-African American) 23.4 ml/min; Potassium 4.6 mmol/L (3.5-5.1)
[2021-09-23 03:55] LABS: Basophils # (auto) 0.04 K/uL (0-0.2); Basophils % (auto) 0.2 %; Hematocrit (blood only) 39.6 % (37-47); Hemoglobin 12.7 g/dL (12.0-16.0); Immature Granulocytes # (auto) 0.12 K/uL (0.00-0.02); Immature Granulocytes % (auto) 0.7 %; Lymphocytes # (auto) 0.69 K/uL (1.2-3.4); Lymphocytes % (auto) 3.8 %; Mean Corpuscular Hemoglobin 30.6 pg (25-34); Mean Corpuscular Volume 95.4 fL (80-100); Mean Platelet Volume 10.4 fL (7.4-10.4); Monocytes # (auto) 1.46 K/uL (0.11-0.59); Neutrophils # (auto) 15.96 K/uL (1.4-6.5); Neutrophils % (auto) 87.3 %; Platelet Count 145 K/uL (130-400); RDW Coefficient of Variation 14.7 % (11.5-14.5); Red Blood Count 4.15 M/uL (4.2-5.4); White Blood Count 18.27 K/uL (4.8-10.8)
[2021-09-23 03:57] LABS: Mean Corpuscular Hgb Conc 32.1 g/dL (32-36)
[2021-09-23] MEDS ORDERED: VANCOMYCIN HCL 2,750 MG in SODIUM CHLORIDE 0.9% 500 ML IV ONE (04:00)
[2021-09-23] MEDS: SODIUM CHLORIDE 0.9% 1000ML 1,000 ML IV SCH ×2 (04:11→19:40)
[2021-09-23 04:21] LABS: Troponin I 0.04 ng/ml (0-0.04)
[2021-09-23 04:24] LABS: Albumin Globulin Ratio 0.9 (0.9-2); Albumin Level 3.2 gm/dl (3.4-5.0); BUN Creatinine Ratio 13.3 (10-20); Bilirubin,Total 0.4 mg/dl (0.2-1.0); Calcium 8.9 mg/dl (8.5-10.1); Creatinine Clr Calc Pharmacy 32.2 ml/min; Est GFR (African American) 25.8 ml/min; Est GFR (Non-African American) 22.3 ml/min; Globulin 3.5 gm/dl (2.5-4.0); Magnesium 1.8 mg/dl (1.7-2.4); Potassium 4.6 mmol/L (3.5-5.1); Total Protein 6.7 gm/dl (6.0-8.3)
[2021-09-23] MEDS ORDERED: KETOROLAC TROMETHAMINE 15 MG/ML VIAL IV ONE (05:06)
--- NOTE | 2021-09-23 07:06 | CT Scan Report ---
CT SCAN OF THE BRAIN WITHOUT IV CONTRAST CLINICAL HISTORY: Change in mental status. COMPARISON STUDY: No priors. TECHNIQUE: Unenhanced axial CT scan of the brain is performed from the vertex to the skull base. A do se lowering technique was utilized adhering to the principles of ALARA. CT DOSE: 614.27 mGy.cm FINDINGS: Brain parenchyma: There are age-related involutional changes noting mild subcortical and periventric ular microangiopathic change. There is no hemorrhage, mass effect, or evidence of acute territorial i schemia by CT criteria. Louis-white matter differentiation is preserved. No extra-axial fluid collecti on is seen. Ventricles, sulci, cisterns: Prominent secondary to involutional change. Intracranial vasculature: There is atherosclerotic calcification of the cavernous carotid and vertebr al arteries. Calvarium: Unremarkable. Sinuses and mastoids: There is mild mucosal thickening in the left maxillary antrum. The remaining pa ranasal sinuses are clear. The mastoid air cells are well pneumatized. Orbits: The bony orbits are grossly intact. There are bilateral ocular lens implants. IMPRESSION: There is no hemorrhage, mass effect, or evidence of acute territorial ischemia by CT jaden stiles. ACT 112: Negative or not required by law. Electronically signed by: Celestino Guerrero M.D. 09/23/2021 7:05 AM
[2021-09-23 07:10] LABS: Estimated Average Glucose 341 mg/dl; Hemoglobin A1C 13.5 % (4.5-5.6)
[2021-09-23] MEDS: ASPIRIN 81 MG ECTAB PO SCH (09:36)
[2021-09-23] MEDS: LORATADINE 10 MG TAB PO PRN (09:36)
[2021-09-23] MEDS: GABAPENTIN 300 MG CAP PO SCH ×2 (09:37→15:35)
[2021-09-23] MEDS: DICLOFENAC SOD 1% GEL 100 GM TUBE EXT SCH ×4 (09:37→22:46)
[2021-09-23] MEDS: ROSUVASTATIN CALCIUM 20 MG TAB PO SCH (09:38)
[2021-09-23] MEDS: BUDESONIDE AQ (RHINOCORT AQ) NASAL SPRAY 32 MCG NAE SCH (09:38)
[2021-09-23] MEDS: UMECLIDINIUM BROMIDE 62.5MCG/BLISTER 7 PUFFS/INHALER INH SCH (09:38)
[2021-09-23] MEDS: CEROVITE ADV FORMULA TAB PO SCH (09:39)
[2021-09-23] MEDS: TRIAMCINOLONE ACET 0.025% CR 15 GM TUBE TOP SCH ×2 (09:39→22:56)
[2021-09-23] MEDS: MONTELUKAST SODIUM 10 MG TABLET PO SCH (09:39)
[2021-09-23] MEDS: CLOPIDOGREL BISULFATE 75 MG TAB PO SCH (09:40)
[2021-09-23] MEDS: CYANOCOBALAMIN (B-12) 100 MCG TABLET PO SCH (09:40)
[2021-09-23] MEDS: FUROSEMIDE 40 MG TAB PO SCH ×2 (09:40→17:58)
[2021-09-23] MEDS: INSULIN GLARGINE SOLOSTAR 100 UNITS/ML 3 ML PEN SC SCH ×2 (10:01→22:45)
[2021-09-23] MEDS: carvediloL 12.5 MG TAB PO SCH ×2 (10:07→22:56)
[2021-09-23] MEDS: PIPERACILLIN/TAZOBACTAM 4.5 GM in DEXTROSE 5% 100 ML IV SCH ×2 (10:13→17:55)
--- NOTE | 2021-09-23 12:28 | Orthopedic Consultation ---
Date of Consultation September 23, 2021 Assessment & Plan (1) Shital-prosthetic fracture of proximal tibia: Left periprosthetic proximal tibia fracture. X-rays have been reviewed with [facility] physicians. With the minimal displacement of the fracture, and the patient's multiple comorbidities along with her obesity, it is felt to be best to treat her in a hinged knee brace at this time and make her nonweightbearing. If the bracing would fail for any reason, the patient may require ORIF versus a revision tibial component to be placed. If surgery required, this would likely be done at a tertiary facility. I have discussed this with the patient and her which they u albatand. We will consult orthotics to see if they can measure the patient for brace. If for any reason, that they cannot give the patient a brace, surgery option will then have to be entertained. Dr. Guzman will see the patient later today for any further discussion. Once her brace is fitted, we can attempt PT and OT protocols. Most likely she will require a rehab facility prior to returning home. History of Present Illness Reason for Consultation: Left periprosthetic tibia fracture Attending Physician: Ramiro Moreau MD History of Present Illness Patient is a 76yo F with a PMH of DM II, asthma, severe sleep apnea on 3L NC HS, combined systolic and diastolic heart failure, h/o complete heart block s/p pacemaker placement, LBBB, PVD, CKD III, dyslipidemia, morbid obesity who is being admitted today by the [facility] for periprosthetic tibia fracture. Patient underwent bilateral total knee arthroplasties in 2004. She has not had much in the way of problems with them in the past. She apparently was cold in her home last night and got up to go near a heater. She ended up losing her balance and falling onto her left knee. She had immediate pain in the left knee and was unable to ambulate she was brought to the emergency room here at [facility] and was seen by the staff. X-rays were taken. It was found that she had a minimally displaced periprosthetic tibia fracture of the left tibia. She denies hitting her head. She denies loss of consciousness. She had no shortness of breath, chest pain or lightheadedness prior to or after the fall. We have been asked to see her for her tibia fracture. Allergies Allergy/AdvReac Type Severity Reaction Status Date / Time fluticasone Allergy Severe WATER ON Verified 09/22/21 17:45 LUNGS salmeterol Allergy Severe WATER ON Verified 09/22/21 17:45 LUNGS propoxyphene Allergy Mild FROM Verified 09/22/21 17:45 DARVOCET benzocaine Allergy Unknown ? Verified 09/22/21 17:45 mold Allergy Unknown uknown Verified 09/22/21 17:45 prednisone AdvReac Intermediate HYPERGLYCEM Verified 09/22/21 17:45 IA oxycodone AdvReac Hallucinati Unverified 09/22/21 17:45 ng vinyl AdvReac Unknown RASH Uncoded 09/22/21 17:45 Home Medications Medication Instructions Recorded Confirmed Type aspirin 81 mg tablet,delayed 81 mg PO DAILY 10/01/19 09/22/21 History release carvedilol 12.5 mg tablet 12.5 mg PO BID 10/01/19 09/22/21 History clopidogrel 75 mg tablet 75 mg PO DAILY 10/01/19 09/22/21 History cyanocobalamin (vitamin B-12) 100 100 mcg PO DAILY 10/01/19 09/22/21 History mcg tablet insulin glargine 100 unit/mL (3 68 unit SUBCUT BID 10/01/19 09/22/21 History mL) subcutaneous pen (Lantus Solostar U-100 Insulin) loratadine 10 mg tablet 10 mg PO DAILY PRN 10/01/19 09/22/21 History montelukast 10 mg tablet 10 mg PO DAILY 10/01/19 09/22/21 History multivitamin with minerals 1 tab PO DAILY 10/01/19 09/22/21 History (Multiple Vitamin-Minerals) albuterol sulfate 2.5 mg INHALATION Q4H PRN 11/01/19 09/22/21 History acetaminophen 325 mg tablet 325 mg PO QID PRN 09/22/21 09/22/21 History budesonide 32 mcg/actuation nasal 2 spray INTRANASAL DAILY 09/22/21 09/22/21 History spray diclofenac sodium 1 % topical gel 4 g TOPICAL QID 09/22/21 09/22/21 History dulaglutide 3 mg/0.5 mL 3 mg SUBCUT WK 09/22/21 09/22/21 History subcutaneous pen injector (Trulicity) furosemide 40 mg tablet 40 mg PO BID 09/22/21 09/22/21 History gabapentin 100 mg capsule See Rx Instructions .ROUTE .COMPLEX 09/22/21 09/22/21 History insulin aspart U-100 100 unit/mL 10 unit SUBCUT TID 09/22/21 09/22/21 History (3 mL) subcutaneous pen (Novolog Flexpen U-100 Insulin aspart) losartan 100 mg tablet 100 mg PO DAILY 09/22/21 09/22/21 History rosuvastatin 40 mg tablet 40 mg PO DAILY 09/22/21 09/22/21 History tiotropium bromide 18 mcg capsule 1 cap INHALATION DAILY 09/22/21 09/22/21 History with inhalation device (Spiriva with HandiHaler) triamcinolone acetonide 0.025 % 1 applic TOPICAL BID 09/22/21 09/22/21 History topical cream Patient History Medical History Asthma CKD (chronic kidney disease), stage III Combined congestive systolic and diastolic heart failure Complete heart block (06/14/14) Diabetes mellitus, type II, insulin dependent Dyslipidemia Excessive daytime sleepiness Granulomatous interstitial lung disease HTN (hypertension) Morbid obesity due to excess calories Nonischemic cardiomyopathy Pacemaker Physical deconditioning PVD (peripheral vascular disease) Sleep apnea Surgical History H/O tubal ligation History of cardiac cath 2014 - normal coronary arteries; Dr Jorgensen at [facility] [place] History of carpal tunnel release History of cataract removal with insertion of prosthetic lens History of revascularization procedure of lower extremity fem/pop artery revascularization RLE; 09/2017; Dr Gill at [facility] [place] [place] History of total knee arthroplasty 2005; bilateral Family History Mother Leukemia Son Asthma Brother Stroke Social History Smoking Status: Never smoker Second Hand Exposure: No; Do You Dip or Chew Tobacco: No; Tobacco Cessation Education Requested by Patient: No Hx Alcohol Use: Yes Hx Substance Use: No Preferred Language: Maldivian Communication Ability: Effective Channeling 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 She is currently sitting up in her bed. She is sleeping but easily awoken. She complains of pain in the left knee area. She has no other complaints at this time. She is alert and oriented, pleasant and cooperative in a mild amount of distress secondary to her knee pain. Examination of her left lower extremity, she has a large posterior splint that goes from her foot to about mid thigh posteriorly with medial and lateral buttress splints. Toes are pink and warm. She has good range of motion of her toes at this time and sensation is slightly decreased due to neuropathy however patient is able to feel some sensation whenever palpating her toes. Capillary refill is less than 2 seconds. No overt pain on palpation of the upper thigh. No complaints of pain on the right lower extremity and she is able to get throu gh gentle range of motion. Upper extremities appear not to be affected and range of motion is intact without difficulty. Distal pulses are equal bilaterally of the upper extremities. There is no gross motor or sensory loss. As noted before, she does have a history of mild neuropathy. Results & Data ([facility]) Vital Signs (Past 12 Hours) Vital Signs Pulse Pulse Resp BP BP Pulse Ox 09/23/21 12:03 78 18 101/68 96 09/23/21 11:08 81 23 09/23/21 11:07 80 13 09/23/21 11:02 81 19 09/23/21 10:02 82 14 99/51 L 09/23/21 10:00 81 16 09/23/21 09:20 84 14 75/40 L 09/23/21 09:02 85 16 80/47 L 98 09/23/21 09:01 86 15 100 09/23/21 08:01 91 H 16 95/58 L 97 09/23/21 08:00 88 18 99 09/23/21 07:03 93 H 22 85/61 L 97 09/23/21 07:00 90 15 97 09/23/21 06:12 94 H 16 92/47 L 95 09/23/21 05:02 92 09/23/21 04:17 101 H 14 93/59 L 93 09/23/21 03:34 106 H 18 98/63 L 94 09/23/21 02:30 111 H 22 84/73 L 87 L 09/23/21 02:00 108 H 21 109/67 91 09/23/21 01:37 114 H 18 108/86 90 09/23/21 00:30 98 H 17 111/89 96 Laboratory Results Laboratory Results WBC 18.27 K/uL (4.8-10.8) H 09/23/21 03:44 RBC 4.15 M/uL (4.2-5.4) L 09/23/21 03:44 Hgb 12.7 g/dL (12.0-16.0) 09/23/21 03:44 Hct 39.6 % (37-47) 09/23/21 03:44 MCV 95.4 fL (80-100) 09/23/21 03:44 MCH 30.6 pg (25-34) 09/23/21 03:44 MCHC 32.1 g/dL (32-36) 09/23/21 03:44 RDW Std Deviation 51.0 fL (36.4-46.3) H 09/23/21 03:44 RDW Coeff of Javier 14.7 % (11.5-14.5) H 09/23/21 03:44 Plt Count 145 K/uL (130-400) 09/23/21 03:44 MPV 10.4 fL (7.4-10.4) 09/23/21 03:44 Immature Gran % (Auto) 0.7 % 09/23/21 03:44 Neut % (Auto) 87.3 % 09/23/21 03:44 Lymph % (Auto) 3.8 % 09/23/21 03:44 Starke % (Auto) 8.0 % 09/23/21 03:44 Eos % (Auto) 0.0 % 09/23/21 03:44 Baso % (Auto) 0.2 % 09/23/21 03:44 Neut # (Auto) 15.96 K/uL (1.4-6.5) H 09/23/21 03:44 Lymph # (Auto) 0.69 K/uL (1.2-3.4) L 09/23/21 03:44 Starke # (Auto) 1.46 K/uL (0.11-0.59) H 09/23/21 03:44 Eos # (Auto) 0.00 K/uL (0-0.5) 09/23/21 03:44 Baso # (Auto) 0.04 K/uL (0-0.2) 09/23/21 03:44 Immature Gran # (Auto) 0.12 K/uL (0.00-0.02) H 09/23/21 03:44 PT 10.5 Seconds (9.0-12.0) 09/22/21 15:24 INR 1.0 (0.9-1.1) 09/22/21 15:24 APTT 23.6 Seconds (21.0-31.0) 09/22/21 15:24 PTT Ratio 0.9 09/22/21 15:24 ABG pH 7.41 (7.35-7.45) 09/23/21 03:08 ABG pCO2 52 mmHg (35-46) H 09/23/21 03:08 ABG pO2 84 mmHg (80-95) 09/23/21 03:08 ABG HCO3 32 mmol/L (19-24) H 09/23/21 03:08 ABG O2 Saturation 96.3 % (90-95) H 09/23/21 03:08 ABG Base Excess 5.8 mEq/L (-9-1.8) H 09/23/21 03:08 Jack Test Pos (Pos) 09/23/21 03:08 Barometric Pressure 737.3 mm/Hg 09/23/21 03:08 Oxygen Given 4L 09/23/21 03:08 Sodium 133 mmol/L (136-145) L 09/23/21 03:44 Potassium 4.6 mmol/L (3.5-5.1) 09/23/21 03:44 Chloride 95 mmol/L (98-107) L 09/23/21 03:44 Carbon Dioxide 30 mmol/L (21-32) 09/23/21 03:44 Anion Gap 8 (3-11) 09/23/21 03:44 BUN 28 mg/dl (6-23) H 09/23/21 03:44 Creatinine 2.10 mg/dl (0.6-1.2) H 09/23/21 03:44 Est Cr Clr Drug Dosing 32.2 ml/min 09/23/21 03:44 Est GFR ( Amer) 25.8 ml/min 09/23/21 03:44 Est GFR (Non-Af Amer) 22.3 ml/min 09/23/21 03:44 BUN/Creatinine Ratio 13.3 (10-20) 09/23/21 03:44 Glucose 252 mg/dl (70-99(Fasting)) H 09/23/21 03:44 POC Glucose 255 mg/dl (70-99) H 09/23/21 12:09 Estimat Average Glucose 341 mg/dl 09/23/21 03:08 Hemoglobin A1c 13.5 % (4.5-5.6) H 09/23/21 03:08 Lactate 1.6 mmol/L (0.4-2.0) 09/23/21 05:31 Calcium 8.9 mg/dl (8.5-10.1) 09/23/21 03:44 Magnesium 1.8 mg/dl (1.7-2.4) 09/23/21 03:44 Total Bilirubin 0.4 mg/dl (0.2-1.0) 09/23/21 03:44 AST 25 U/L (13-39) 09/23/21 03:44 ALT 16 U/L (7-52) 09/23/21 03:44 Alkaline Phosphatase 48 U/L (34-104) 09/23/21 03:44 Ammonia 23.0 umol/L (18-72) 09/23/21 03:44 Troponin I 0.04 ng/ml (0-0.04) 09/23/21 03:44 Total Protein 6.7 gm/dl (6.0-8.3) 09/23/21 03:44 Albumin 3.2 gm/dl (3.4-5.0) L 09/23/21 03:44 Globulin 3.5 gm/dl (2.5-4.0) 09/23/21 03:44 Albumin/Globulin Ratio 0.9 (0.9-2) 09/23/21 03:44 Urine Color Yellow 09/22/21 19:21 Urine Appearance Clear (Clear) 09/22/21 19:21 Urine pH 6.5 (4.5-7.5) 09/22/21 19:21 Ur Specific Phillips 1.016 (1.000-1.030) 09/22/21 19:21 Urine Protein Trace (Negative) H 09/22/21 19:21 Urine Glucose (UA) 3+ (Negative) H 09/22/21 19:21 Urine Ketones Negative (Negative) 09/22/21 19:21 Urine Blood 1+ (Negative) H 09/22/21 19:21 Urine Nitrite Negative (Negative) 09/22/21 19:21 Urine Bilirubin Negative (Negative) 09/22/21 19:21 Urine Urobilinogen Negative (Negative) 09/22/21 19:21 Ur Leukocyte Esterase 1+ (Negative) H 09/22/21 19:21 Urine WBC (Auto) 1-5 /hpf (0-5) 09/22/21 19:21 Urine RBC (Auto) 0-4 /hpf (0-4) 09/22/21 19:21 U Hyaline Cast (Auto) 0 /lpf (0-5) 09/22/21 19:21 U Epithel Cells (Auto) 20-30 /lpf (0-5) H 09/22/21 19:21 Urine Bacteria (Auto) 4+ (Negative) H 09/22/21 19:21 SARS-CoV-2, RNA, NAAT NEGATIVE (NEGATIVE) 09/22/21 16:30 Diagnostic Findings Patient:MAGGY TELLEZ Admit Date:09/22/21 MR#:[id number] Address1:[address] [place] [address] Acct ID:[id number] Address2: Date:1945 [facility] Zip:[place] [address] Age:76 Location:ED Sex:F Room/Bed: Att Phy: Diagnosis:FALL, L LEG INJURY Lauren Phy:sAael Jones MD(CINTHYA) Service Date:09/22/21 [facility] Phy: Interpreting Phy:Mahesh Evans MDAdmit Phy: Ordering Phy:Cristhian Bahena DO cc: ~ XR knee LT 1 or 2V routine, XR tibia fibula LT 2V, XR ankle LT 2V CLINICAL HISTORY: Extremity Trama TECHNIQUE: 2 views of the left knee were obtained. 2 views of the left tibia and fibula were obtained. 2 views of the left ankle were obtained. Comparison: None available at the time of this dictation. FINDINGS: Patient is status post total knee arthroplasty. There is an acute fracture at the tibial metadiaphysis at the distal aspect of the tibial component. A few ti ny bony fragments are seen. The alignment is anatomic. Soft tissue swelling is seen in the proximal tibia as well vascular calcifications throughout the leg. IMPRESSION: Fracture of the proximal tibia at the distal aspect of the tibial component of the knee arthroplasty. There is associated soft tissue swelling. ACT 112: Negative or not required by law. (1) Shital-prosthetic fracture of proximal tibia Encounter type: initial encounter Qualified Code(s): M97.8XXA - Pe riprosthetic fracture around other internal prosthetic joint, initial encounter; Z96.659 - Presence of unspecified artificial knee joint
[2021-09-23] MEDS ORDERED: HYDROCODONE/ACETAMOPHEN 5/325MG TAB PO PRN (13:02)
[2021-09-23] MEDS ORDERED: INSULIN ASPART PER UNIT SC ONE (14:30)
--- NOTE | 2021-09-23 15:10 | Pharmacy Report ---
Pharmacy Glycemic Short Note 2 - Date of Service September 23, 2021 - Glycemic Short BSG Results (Last 24 hours): 09/22/21 09/22/21 09/22/21 15:24 17:47 19:31 Glucose 362 H* POC Glucose 348 H* 367 H* 09/23/21 09/23/21 09/23/21 00:14 01:01 03:08 Glucose 262 H POC Glucose 302 H* 274 H 09/23/21 09/23/21 09/23/21 03:44 06:11 09:22 Glucose 252 H POC Glucose 269 H 293 H 09/23/21 12:09 Glucose POC Glucose 255 H OUTPATIENT ANTIDIABETIC REGIMEN: * Lantus 68 units BID, NovoLog 10 units TID, Trulicity * A1c 13.7% per provider notes from 03/2021 ASSESSMENT: 09/23/21 * Blood sugars remain above goal, will begin home dose of basal BID, despite NPO status as blood sugars 267, 255mg/dl. * Tighten CF/CR * Extra accucheck with CF now at 1500 * Diet starting with dinner 09/22/21 * 76 year old admitted after fall. PMHx significant for pacemaker placement, morbid obesity, CKD III, hx bilateral knee replacements. Ortho to see patient tomorrow, per notes likely non-operative. Confirmed with patient that she did not take any Lantus insulin today * She confirms her last Lantus dose was yesterday - BSG this evening elevated at ~348. Her total daily dose of Lantus is ~136 units a day, will reduce this about ~30% for NPO status and give now dose * Started novolog Q6 hr checks for additional coverage PLAN FOR INPATIENT GLYCEMIC CONTROL: * Hold outpatient Trulicity * Basal insulin * Lantus 68 units SQ BID * Bolus insulin * NovoLog per scale ACHS or Q6hrs while NPO * Goal Range: Low 110 mg/dL - High 140 mg/dL * Correction Factor: 8 mg/dL/unit * Nutritional / Prandial insulin per carb ratio of 1 unit per 3 grams CHO consumed PLAN FOR DISCHARGE: * TBD
[2021-09-23] MEDS ORDERED: INSULIN ASPART PER UNIT SC SCH (19:00)
--- NOTE | 2021-09-23 19:32 | Hospitalist Progress Note ---
Date of Service September 23, 2021 Assessment & Plan (1) Periprosthetic fracture around internal prosthetic left knee joint: Plan: This is a 76yo F with a PMH of DM II, asthma, severe sleep apnea on 3L NC HS, combined systolic and diastolic heart failure, h/o complete heart block s/p pacemaker placement, LBBB, PVD, CKD III, dyslipidemia, morbid obesity and other medical problems as below who presents from home after fall. Tibia/fibula XR with fracture of the proximal tibia at the distal aspect of the tibial component of the knee arthroplasty. There is associated soft tissue swelling Left hip x-ray showed no evidence of acute osseous injury. Ortho on board Recommended conservative management and hinged knee brace with nonweightbearing If the bracing would fail for any reason, the patient may require ORIF versus a revision tibial component to be placed. If surgery required, patient will need to be transferred to tertiary care facility to get it done Orthotic consult placed by Ortho to measure for the brace Continue pain control PT/OT eval once her brace is fitted We will consider inpatient rehab Right knee pain Will consider to get an x-ray of the R knee if pain worsening Continue pain control (2) UTI (urinary tract infection): (3) Leukocytosis: Plan: WBC 17. Afebrile, lactate 2.2 on admission Patient was started on cefepime IV then antibiotic changed to Zosyn and Vanco Vanco discontinued today since urine culture grew gram-negative bacilli We will continue monitor WBC (4) Uncontrolled type II diabetes mellitus: Plan: Most recent hemoglobin A1c 15.5 on 09/23/2021 Currently on Lantus and insulin sliding scale during the hospital course Home regimen includes Lantus 68u BID, 10u TIDM [facility]olog[facility] on board for glycemic management Continue monitor blood sugar (5) Hyperkalemia: Plan: Potassium on admission 5.2 Losartan was placed on hold Potassium today 4.6 Continue monitor BMP (6) Combined congestive systolic and diastolic heart failure: Plan: Appears compensated. We will hold Lasix due to low BP and ELOY We will monitor closely for sign of volume overload (7) CKD (chronic kidney disease), stage III: Plan: ELOY on CKD stage III Creatinine on admission worsening to 2.1, creatinine (baseline 1.6-1.8). Lasix dose already given today Monitor with daily BMP (8) HTN (hypertension): Plan: Continue carvedilol, holding losartan as discussed above (9) Asthma: Plan: Stable. Continue home inhalers, supplemental O2 HS (10) Complete heart block: Plan: S/p pacemaker placement. ECG with atrial-paced rhythm (11) Dyslipidemia: Plan: Continue statin (12) PVD (peripheral vascular disease): Plan: Continue aspirin, plavix (13) Morbid obesity due to excess calories: Plan: PT OT/eval DVT Ppx: We will start on heparin subcu Code status: FULL Dispo: Continue monitor closely Will need inpatient rehab Admission and Anticipated Discharge Date Admission Date: September 22, 2021 Subjective Patient was seen and examined for follow-up of knee pain Lying in bed with no acute distress Patient said that she is having excruciated pain in her left knee Her BP is also borderline Denies any chest pain, palpitation, dizziness, SOB Review of Systems Review of Systems: All systems reviewed & are unremarkable except as noted in Subjective Physical Exam Physical Exam: General- No acute distress, obese Head- atraumatic Eyes- PERRL, EOMI, ENT- oropharynx clear Neck- supple, no JVD Lungs- clear to auscultation Heart- regular rhythm; no murmur Abdomen- normal bowel sounds, soft, nontender Extremities- no calf tenderness, B/L knee pain with left worsening Neuro- alert, oriented x 3; PERRL, EOMI; no facial palsy; no dysarthria Skin- warm & dry Results & Data Results & Data ([facility]) Vital Signs (Past 12 Hours) Vital Signs Temp Pulse Pulse Pulse Resp BP BP 09/23/21 19:06 36.4 C L 79 20 87/60 L 09/23/21 16:21 77 09/23/21 15:11 78 18 09/23/21 14:02 77 18 95/62 L 09/23/21 14:00 76 23 09/23/21 13:00 76 13 98/60 L 09/23/21 12:03 78 18 09/23/21 12:01 78 12 101/66 09/23/21 12:00 79 16 09/23/21 11:08 81 23 09/23/21 11:07 80 13 09/23/21 11:02 81 19 09/23/21 10:02 82 14 99/51 L 09/23/21 10:00 81 16 09/23/21 09:20 84 14 75/40 L 09/23/21 09:02 85 16 80/47 L 09/23/21 09:01 86 15 09/23/21 08:01 91 H 16 95/58 L 09/23/21 08:00 88 18 BP Pulse Ox 09/23/21 19:06 97 09/23/21 16:21 09/23/21 15:11 101/68 96 09/23/21 14:02 09/23/21 14:00 09/23/21 13:00 09/23/21 12:03 101/68 96 09/23/21 12:01 09/23/21 12:00 09/23/21 11:08 09/23/21 11:07 09/23/21 11:02 09/23/21 10:02 09/23/21 10:00 09/23/21 09:20 09/23/21 09:02 98 09/23/21 09:01 100 09/23/21 08:01 97 09/23/21 08:00 99
[2021-09-23] MEDS: GABAPENTIN 100 MG CAP PO SCH (22:49)
[2021-09-24] MEDS ORDERED: INSULIN ASPART PER UNIT SC SCH
--- NOTE | 2021-09-24 00:29 | Communication Note ---
Date of Service: September 24, 2021 Made aware by RN of patient hallucinations. Patient seen cows and wilson. SBP 90s as per patient. AP Encephalopathy Multifactorial : Narcotic sensitivity (history hallucinations from oxycodone as per records) Gabapentin contributory ARF on CKD Change Vicodin to tramadol Hold gabapentin for now Monitor creatinine response to gentle IV hydration. Will relay to AM provider.
[2021-09-24 01:01] LABS: Basophils # (auto) 0.04 K/uL (0-0.2); Basophils % (auto) 0.4 %; Eosinophils # (auto) 0.65 K/uL (0-0.5); Eosinophils % (auto) 6.6 %; Hematocrit (blood only) 34.2 % (37-47); Hemoglobin 10.8 g/dL (12.0-16.0); Immature Granulocytes # (auto) 0.02 K/uL (0.00-0.02); Immature Granulocytes % (auto) 0.2 %; Lymphocytes # (auto) 1.21 K/uL (1.2-3.4); Lymphocytes % (auto) 12.3 %; Mean Corpuscular Hemoglobin 30.9 pg (25-34); Mean Corpuscular Hgb Conc 31.6 g/dL (32-36); Mean Corpuscular Volume 97.7 fL (80-100); Mean Platelet Volume 10.7 fL (7.4-10.4); Monocytes # (auto) 0.45 K/uL (0.11-0.59); Monocytes % (auto) 4.6 %; Neutrophils # (auto) 7.48 K/uL (1.4-6.5); Neutrophils % (auto) 75.9 %; Platelet Count 127 K/uL (130-400); RDW Coefficient of Variation 14.9 % (11.5-14.5); RDW Standard Deviation 53.2 fL (36.4-46.3); White Blood Count 9.85 K/uL (4.8-10.8)
[2021-09-24 01:23] LABS: BUN Creatinine Ratio 13.9 (10-20); Calcium 8.2 mg/dl (8.5-10.1); Creatinine Clr Calc Pharmacy 23.1 ml/min; Est GFR (African American) 18.2 ml/min; Est GFR (Non-African American) 15.7 ml/min
[2021-09-24] MEDS: ACETAMINOPHEN 1,000 MG/100 ML VIAL IV SCH ×3 (02:15→17:45)
[2021-09-24] MEDS: PIPERACILLIN/TAZOBACTAM 4.5 GM in DEXTROSE 5% 100 ML IV SCH ×3 (02:15→18:17)
[2021-09-24] MEDS: SODIUM CHLORIDE 0.9% 1000ML 1,000 ML IV SCH ×2 (04:50→11:08)
[2021-09-24] MEDS: traMADol HCL 50 MG TABLET PO PRN ×2 (05:54→13:57)
[2021-09-24] MEDS: ROSUVASTATIN CALCIUM 20 MG TAB PO SCH (08:46)
[2021-09-24] MEDS: CEROVITE ADV FORMULA TAB PO SCH (08:46)
[2021-09-24] MEDS: MONTELUKAST SODIUM 10 MG TABLET PO SCH (08:47)
[2021-09-24] MEDS: CLOPIDOGREL BISULFATE 75 MG TAB PO SCH (08:47)
[2021-09-24] MEDS: BUDESONIDE AQ (RHINOCORT AQ) NASAL SPRAY 32 MCG NAE SCH (08:48)
[2021-09-24] MEDS: UMECLIDINIUM BROMIDE 62.5MCG/BLISTER 7 PUFFS/INHALER INH SCH ×2 (08:48→10:03)
[2021-09-24] MEDS: TRIAMCINOLONE ACET 0.025% CR 15 GM TUBE TOP SCH ×2 (08:49→21:21)
[2021-09-24] MEDS: INSULIN ASPART PER UNIT SC SCH ×4 (08:55→21:20)
[2021-09-24] MEDS: DICLOFENAC SOD 1% GEL 100 GM TUBE EXT SCH ×5 (08:56→21:20)
[2021-09-24] MEDS: HYDROmorphone INJ 0.5 MG/0.5 ML SYR IV PRN (09:09)
--- NOTE | 2021-09-24 09:27 | Orthopedic Progress Note ---
Date of Service September 24, 2021 Assessment & Plan (1) Shital-prosthetic fracture of proximal tibia: Plan: HD 1 Pt being treated Non Op for periprosthetic Tiba fx. Hinged knee brace to be on at all times. May loosen for bathing. No ROM of knee at this time. Begin PT/OT. NWB LLE with brace. Pain management as written. Pt will likely need Rehab stay prior to returning home. Await PT results. Admission and Anticipated Discharge Date Admission Date: September 22, 2021 Subjective Pt sitting up in bed. Having some pain in the left knee this AM. Nursing currently getting her pain medication. Having some neck discomfort secondary to pillow/bed position. No other complaints. Physical Exam Physical Exam: Hinged knee brace in place. Brace remaining comfortable at this time. Moving toes well. Sensation decreased due to neuropathy. Pt states this has not changed. Toes pink/warm. Good cap refill. Results & Data ([facility]) Vital Signs (Past 12 Hours) Vital Signs Temp Pulse Pulse Resp BP Pulse Ox 09/24/21 07:15 36.5 C 80 19 97/58 L 98 09/24/21 03:30 36.6 C 75 18 81/49 L 94 09/24/21 01:23 78 09/23/21 22:54 36.3 C L 78 20 91/61 L 99 (1) Shital-prosthetic fracture of proximal tibia Encounter type: initial encounter Qualified Code(s): M97.8XXA - Periprosthetic fracture around other internal prosthetic joint, initial encounter; Z96.659 - Presence of unspecified artificial knee joint
[2021-09-24] MEDS: ASPIRIN 81 MG ECTAB PO SCH (10:02)
[2021-09-24] MEDS: CYANOCOBALAMIN (B-12) 100 MCG TABLET PO SCH (10:03)
--- NOTE | 2021-09-24 12:50 | Pharmacy Report ---
Pharmacy Glycemic Short Note 2 - Date of Service September 24, 2021 - Glycemic Short BSG Results (Last 24 hours): 09/23/21 09/23/21 09/23/21 15:18 16:42 21:00 Glucose POC Glucose 269 H 239 H 230 H 09/24/21 09/24/21 09/24/21 00:23 00:41 08:54 Glucose 181 H POC Glucose 203 H 144 H 09/24/21 11:34 Glucose POC Glucose 173 H OUTPATIENT ANTIDIABETIC REGIMEN: * Lantus 68 units BID, NovoLog 10 units TID, Trulicity * A1c 13.7% per provider notes from 03/2021 ASSESSMENT: 09/24/21 * Patient's BSGs yesterday were [phone] mg/dL and today's BSGs are 144- 173 mg/dL. * Patient has received 191 units of insulin (136 units of basal and 55 units of bolus). * Since fasting has decreased by > 100 mg/dL will cut basal in half to 68 units tonight. Patient's current regimen is very basal heavy. * Continue Novolog. 09/23/21 * Blood sugars remain above goal, will begin home dose of basal BID, despite NPO status as blood sugars 267, 255mg/dl. * Tighten CF/CR * Extra accucheck with CF now at 1500 * Diet starting with dinner 09/22/21 * 76 year old admitted after fall. PMHx significant for pacemaker placement, morbid obesity, CKD III, hx bilateral knee replacements. Ortho to see patient tomorrow, per notes likely non-operative. Confirmed with patient that she did not take any Lantus insulin today * She confirms her last Lantus dose was yesterday - BSG this evening elevated at ~348. Her total daily dose of Lantus is ~136 units a day, will reduce this about ~30% for NPO status and give now dose * Started novolog Q6 hr checks for additional coverage PLAN FOR INPATIENT GLYCEMIC CONTROL: * Hold outpatient Trulicity * Basal insulin * Lantus 68 units SQ HS * Bolus insulin * NovoLog per scale ACHS or Q6hrs while NPO * Goal Range: Low 110 mg/dL - High 140 mg/dL * Correction Factor: 8 mg/dL/unit * Nutritional / Prandial insulin per carb ratio of 1 unit per 3 grams CHO consumed PLAN FOR DISCHARGE: * TBD
--- NOTE | 2021-09-24 12:51 | Consultation Report ---
NEPHROLOGY CONSULTATION NOTE DATE OF SERVICE: 09/24/2021 REASON FOR CONSULT: Acute renal failure. HISTORY OF PRESENT ILLNESS: The patient is a 76-year-old female who presented to the hospital after she fell at home. She apparently tripped. Denies having any lightheadedness or syncopal episodes pr ior to hospitalization. She was found to have slight acute renal failure with a creatinine of 2.0, wh ich has since gone up to 2.81. At baseline, she has slight CKD with a creatinine of 1.6. She was al so found to have a fracture of the proximal tibia for which she has been seen by the orthopedic surge on and she has been medically managed and there is no need of surgery at this time. Since admission, she has had somewhat low blood pressure and despite IV fluids, her creatinine has actually continued to get worse. It has gone from 1.65 on admission to 2.1 and then today is 2.81. At home, she was o n Lasix and losartan, both of which are currently on hold. PAST MEDICAL AND SURGICAL HISTORY: Includes type 2 diabetes - on insulin, asthma, severe sleep apnea - on oxygen, combined systolic and diastolic heart failure, history of complete heart block, status post pacemaker placement, left bundle branch block, peripheral vascular disease, chronic kidney disea se stage III with a baseline creatinine around 1.6, hyperlipidemia, morbid obesity, tubal ligation, c ardiac catheterization, cataract, carpal tunnel, fem-pop artery revascularization, total knee arthrop lasty. ALLERGIES: LIST WAS REVIEWED AND IS PER THE H AND P AND THE MEDICINE RECONCILIATION LIST. MEDICATIONS: Home medication list was reviewed and is as per the medicine reconciliation list. Of s pecial interest to nephrology, she was on losartan 100 daily and Lasix 40 twice daily, both of which are currently on hold. Inpatient medication list was also reviewed in detail. FAMILY HISTORY: Negative for renal disease or dialysis. SOCIAL HISTORY: She never smoked. No alcohol. She is and lives with her spouse. She uses oxygen as well as continuous and also a walker for ambulation. REVIEW OF SYSTEMS: Prior to the fall, she denied having any acute symptoms. Denied nausea, vomiting , chest pain, shortness of breath, orthopnea, PND. She does have some lower extremity edema at basel ine, but nothing more than usual. PHYSICAL EXAMINATION: VITAL SIGNS: Include blood pressure of 127/84, pulse rate 83, temperature 36.8, and 97% on 2 liter n jared cannula. GENERAL: Awake, alert, oriented x 3, normal speech, no respiratory distress. CHEST: Bilaterally clear to auscultation. CARDIOVASCULAR: S1 and S2, regular. ABDOMEN: Soft, nontender, obese. EXTREMITIES: Shows trace to 1+ edema related with obesity. LABORATORY TEST: From this morning shows sodium 134, potassium 5.0, BUN 39, creatinine is 2.81. As stated earlier, she presented with baseline creatinine of 1.65 two days ago, but since then has gone up and is now 2.8. Hemoglobin is 10.8 and has gone down from 13.8 to 10.8 in 2 days. Urine test show s 1+ blood, trace protein, lots of epithelial cells. Chest x-ray done on admission shows cardiomegal y and mild pulmonary edema, no evidence of acute fracture. ASSESSMENT AND PLAN: A 76-year-old female with multiple medical problems including chronic kidney di sease stage III, baseline creatinine around 1.6. Admitted with fall and fracture of the lower extrem ity. I have been consulted for acute renal failure on background chronic kidney disease. Acute renal failure: Creatinine is up to 2.81 and it is still rising. She is making urine, although I do not know for sure the exact amount. She is getting IV fluid, and Lasix and losartan have been on hold, but despite that, her creatinine is still rising. She may have experienced some component o f acute tubular ischemia/necrosis and that is why the creatinine is still rising. She does not appea r to be volume depleted as such and she also has some pulmonary congestion on x-ray and given her car diac history giving too much fluid will be risky. I will cut down the fluid to 50 mL per hour and th en stop it tomorrow regardless. We may see some worsening of the kidney function before it gets bett er. We will consider doing a renal ultrasound if the creatinine is still rising tomorrow, but as of now, there is nothing to suggest this is a case of obstructive uropathy. Thank you very much for the consult. Job ID: [id number]
--- NOTE | 2021-09-24 20:30 | Hospitalist Progress Note ---
Date of Service September 24, 2021 Assessment & Plan (1) Periprosthetic fracture around internal prosthetic left knee joint: Plan: This is a 76yo F with a PMH of DM II, asthma, severe sleep apnea on 3L NC HS, combined systolic and diastolic heart failure, h/o complete heart block s/p pacemaker placement, LBBB, PVD, CKD III, dyslipidemia, morbid obesity and other medical problems as below who presents from home after fall. Tibia/fibula XR with fracture of the proximal tibia at the distal aspect of the tibial component of the knee arthroplasty. There is associated soft tissue swelling Left hip x-ray showed no evidence of acute osseous injury. Ortho on board Recommended conservative management and hinged knee brace with nonweightbearing If the bracing would fail for any reason, the patient may require ORIF versus a revision tibial component to be placed. If surgery required, patient will need to be transferred to tertiary care facility to get it done Continue nonoperative management as per Ortho Orthotic consult placed by Ortho to measure for the brace Hinged knee brace to be on at all times. May loosen for bathing. No ROM of knee at this time. PT OT eval. NWB LLE with brace. Continue pain control We will consider inpatient rehab Right knee pain Will consider to get an x-ray of the R knee if pain worsening Continue pain control (2) UTI (urinary tract infection): (3) Leukocytosis: Plan: WBC 17. Afebrile, lactate 2.2 on admission Patient was started on cefepime IV then antibiotic changed to Zosyn and Vanco Vanco discontinued today since urine culture grew gram-negative bacilli Urine culture grew E. coli pansensitive WBC improved to 9.8 Currently on IV Zosyn, will transition to p.o. amoxicillin in a.m. (4) Uncontrolled type II diabetes mellitus: Plan: Most recent hemoglobin A1c 15.5 on 09/23/2021 Currently on Lantus and insulin sliding scale during the hospital course Home regimen includes Lantus 68u BID, 10u TIDM Novolog, Trulicity Pharmacy on board for glycemic management Continue monitor blood sugar (5) Hyperkalemia: Plan: Potassium on admission 5.2 Losartan was placed on hold Potassium today 5 Continue monitor BMP (6) Combined congestive systolic and diastolic heart failure: Plan: Appears compensated. Lasix on hold due to low BP and ELOY Currently on IV fluids due to ELOY, will DC in a.m. We will monitor closely for sign of volume overload (7) CKD (chronic kidney disease), stage III: Plan: ELOY on CKD stage III Creatinine on admission worsening to 2.8, creatinine (baseline 1.6-1.8). Continue to hold Lasix and losartan Continue gentle hydration with normal saline at 50 cc Continue monitor BMP daily (8) HTN (hypertension): Plan: Continue carvedilol, holding losartan as discussed above Stable (9) Asthma: Plan: Stable. Continue home inhalers, supplemental O2 HS (10) Complete heart block: Plan: S/p pacemaker placement. ECG with atrial-paced rhythm (11) Dyslipidemia: Plan: Continue statin (12) PVD (peripheral vascular disease): Plan: Continue aspirin, plavix (13) Morbid obesity due to excess calories: Plan: PT OT/eval DVT Ppx: We will start on heparin subcu Code status: FULL Dispo: Continue monitor closely Will need inpatient rehab Admission and Anticipated Discharge Date Admission Date: September 22, 2021 Subjective Patient was seen and examined for follow-up of knee pain Lying in bed with no acute distress Patient said pain is improved today compared to yesterday Denies any chest pain, palpitation, dizziness, SOB Review of Systems Review of Systems: All systems reviewed & are unremarkable except as noted in Subjective Physical Exam Physical Exam: General- No acute distress, obese Head- atraumatic Eyes- PERRL, EOMI, ENT- oropharynx clear Neck- supple, no JVD Lungs- clear to auscultation Heart- regular rhythm; no murmur Abdomen- normal bowel sounds, soft, nontender Extremities- no calf tenderness, B/L knee pain with left worsening Neuro- alert, oriented x 3; PERRL, EOMI; no facial palsy; no dysarthria Skin- warm & dry Results & Data Results & Data ([facility]) Vital Signs (Past 12 Hours) Vital Signs Temp Pulse Pulse Resp BP BP Pulse Ox 09/24/21 19:50 36.7 C 88 20 105/63 96 09/24/21 15:09 36.4 C L 80 21 105/61 97 09/24/21 14:53 80 09/24/21 11:27 36.8 C 83 20 127/84 97 09/24/21 09:05 84 112/73
[2021-09-24] MEDS ORDERED: INSULIN GLARGINE SOLOSTAR 100 UNITS/ML 3 ML PEN SC ONE (21:00)
[2021-09-24] MEDS: HEPARIN SOD 5,000 UNIT/0.5 ML VIAL SQ SCH (21:21)
[2021-09-25] MEDS: ACETAMINOPHEN 1,000 MG/100 ML VIAL IV SCH ×3 (01:55→17:52)
[2021-09-25] MEDS: PIPERACILLIN/TAZOBACTAM 4.5 GM in DEXTROSE 5% 100 ML IV SCH ×2 (01:59→09:55)
[2021-09-25] MEDS: SODIUM CHLORIDE 0.9% 1000ML 1,000 ML IV SCH ×2 (02:01→21:10)
[2021-09-25] MEDS: HEPARIN SOD 5,000 UNIT/0.5 ML VIAL SQ SCH ×3 (05:01→21:09)
[2021-09-25 07:32] LABS: BUN Creatinine Ratio 14.3 (10-20); Calcium 7.9 mg/dl (8.5-10.1); Creatinine Clr Calc Pharmacy 21.1 ml/min; Est GFR (African American) 16.3 ml/min; Potassium 4.6 mmol/L (3.5-5.1)
[2021-09-25] MEDS: ROSUVASTATIN CALCIUM 20 MG TAB PO SCH (08:24)
[2021-09-25] MEDS: CLOPIDOGREL BISULFATE 75 MG TAB PO SCH (08:24)
[2021-09-25] MEDS: CEROVITE ADV FORMULA TAB PO SCH (08:24)
[2021-09-25] MEDS: MONTELUKAST SODIUM 10 MG TABLET PO SCH (08:24)
[2021-09-25] MEDS: DICLOFENAC SOD 1% GEL 100 GM TUBE EXT SCH ×4 (08:25→21:08)
[2021-09-25] MEDS: BUDESONIDE AQ (RHINOCORT AQ) NASAL SPRAY 32 MCG NAE SCH (08:25)
[2021-09-25] MEDS: CYANOCOBALAMIN (B-12) 100 MCG TABLET PO SCH (08:25)
[2021-09-25] MEDS: ASPIRIN 81 MG ECTAB PO SCH (08:28)
[2021-09-25] MEDS: LORATADINE 10 MG TAB PO PRN (08:28)
[2021-09-25] MEDS: TRIAMCINOLONE ACET 0.025% CR 15 GM TUBE TOP SCH ×2 (08:29→21:09)
[2021-09-25] MEDS: UMECLIDINIUM BROMIDE 62.5MCG/BLISTER 7 PUFFS/INHALER INH SCH (08:30)
[2021-09-25] MEDS: INSULIN ASPART PER UNIT SC SCH ×4 (08:44→21:14)
--- NOTE | 2021-09-25 10:17 | Nephrology Progress Note ---
Date of Service September 25, 2021 Assessment & Plan Admission and Anticipated Discharge Date Admission Date: September 22, 2021 Subjective S--feels fine. Hard to get history from. Urine ?? amount. PHYSICAL EXAMINATION: GENERAL: Awake, alert, oriented x 3, normal speech, no respiratory distress. CHEST: Bilaterally clear to auscultation. CARDIOVASCULAR: S1 and S2, regular. ABDOMEN: Soft, nontender, obese. EXTREMITIES: Shows trace to 1+ edema related with obesity. LABORATORY TEST: From this morning Creat still rising and is 3.1 now. Urine test shows 1+ blood, trace protein, lots of epithelial cells. Chest x-ray done on admission shows cardiomegaly and mild pulmonary edema, no evidence of acute fracture. ASSESSMENT AND PLAN: A 76-year-old female with multiple medical problems including chronic kidney disease stage III, baseline creatinine around 1.6. Admitted with fall and fracture of the lower extremity. I have been consulted for acute renal failure on background chronic kidney disease. Acute renal failure: Creatinine is up to 3.1 and it is still rising. She is making urine, although I do not know for sure the exact amount. She is getting IV fluid but should stop now given CXR findings. Hold Lasix and losartan for now. her creatinine is still rising. She may have experienced some component of acute tubular ischemia/necrosis and that is why the creatinine is still rising. She does not appear to be volume depleted as such and she also has some pulmonary congestion on x-ray and given her cardiac history giving too much fluid will be risky. We may see some worsening of the kidney function before it gets better. We will consider doing a renal ultrasound given still rising creat. Results & Data ([facility]) Vital Signs (Past 12 Hours) Vital Signs Temp Pulse Pulse Resp BP BP Pulse Ox 09/25/21 07:46 36.7 C 87 18 110/54 L 93 09/25/21 07:00 83 09/25/21 03:31 36.8 C 85 18 127/65 92 09/25/21 03:25 93 H 09/24/21 23:33 36.7 C 90 18 120/65 97
--- NOTE | 2021-09-25 13:37 | Pharmacy Report ---
Pharmacy Glycemic Short Note 2 - Date of Service September 25, 2021 - Glycemic Short BSG Results (Last 24 hours): 09/24/21 09/24/21 09/25/21 16:39 20:11 06:22 Glucose 109 H POC Glucose 177 H 203 H 09/25/21 09/25/21 07:41 11:26 Glucose POC Glucose 106 H 139 H OUTPATIENT ANTIDIABETIC REGIMEN: * Lantus 68 units BID, NovoLog 10 units TID, Trulicity * A1c 13.7% per provider notes from 03/2021 ASSESSMENT: 09/25/21 * Patient's BSGs yesterday were [phone] mg/dL. Fasting today is 106 mg/dL. * Reduce basal by 40% to 40 units nightly. * Loosened Novolog slightly since BSGs are lower today. 09/24/21 * Patient's BSGs yesterday were [phone] mg/dL and today's BSGs are 144- 173 mg/dL. * Patient has received 191 units of insulin (136 units of basal and 55 units of bolus). * Since fasting has decreased by > 100 mg/dL will cut basal in half to 68 units tonight. Patient's current regimen is very basal heavy. * Continue Novolog. 09/23/21 * Blood sugars remain above goal, will begin home dose of basal BID, despite NPO status as blood sugars 267, 255mg/dl. * Tighten CF/CR * Extra accucheck with CF now at 1500 * Diet starting with dinner 09/22/21 * 76 year old admitted after fall. PMHx significant for pacemaker placement, morbid obesity, CKD III, hx bilateral knee replacements. Ortho to see patient tomorrow, per notes likely non-operative. Confirmed with patient that she did not take any Lantus insulin today * She confirms her last Lantus dose was yesterday - BSG this evening elevated at ~348. Her total daily dose of Lantus is ~136 units a day, will reduce this about ~30% for NPO status and give now dose * Started novolog Q6 hr checks for additional coverage PLAN FOR INPATIENT GLYCEMIC CONTROL: * Hold outpatient Trulicity * Basal insulin * Lantus 40 units SQ HS * Bolus insulin * NovoLog per scale ACHS or Q6hrs while NPO * Goal Range: Low 110 mg/dL - High 140 mg/dL * Correction Factor: 15 mg/dL/unit * Nutritional / Prandial insulin per carb ratio of 1 unit per 5 grams CHO consumed PLAN FOR DISCHARGE: * TBD
--- NOTE | 2021-09-25 14:17 | Ultrasound Report ---
ULTRASOUND KIDNEYS AND BLADDER CLINICAL HISTORY: Acute renal insufficiency. COMPARISON STUDY: Abdominal CT dated 10/01/2019 TECHNIQUE: Real-time, grayscale, and color flow sonography of the kidneys and bladder is performed. I mages are reviewed in the transverse and longitudinal planes. FINDINGS: Kidneys: The kidneys demonstrate cortical atrophy. Echotexture is normal. The right kidney measures 9 .1 x 4.4 x 4.4 cm and the left kidney measures 9.6 x 5.6 x 4.5 cm. There is no hydronephrosis. No sh adowing renal calculi are identified. There is no sonographic evidence of contour deforming renal mas s lesion. No perinephric fluid is identified. Bladder: The bladder is normal in appearance. Bilateral ureteral jets were seen. Upper abdomen: Survey images of the liver show evidence of steatosis. IMPRESSION: 1. The kidneys demonstrate cortical atrophy and are without hydronephrosis. 2. The bladder is normal as imaged. ACT 112: Negative or not required by law. Electronically signed by: Celestino Guerrero M.D. 09/25/2021 2:15 PM
[2021-09-25] MEDS: HYDROmorphone INJ 0.5 MG/0.5 ML SYR IV PRN (18:53)
[2021-09-25] MEDS ORDERED: INSULIN GLARGINE SOLOSTAR 100 UNITS/ML 3 ML PEN SC ONE (21:00)
[2021-09-25] MEDS: AMOXICILLIN 500 MG CAP PO SCH (21:08)
--- NOTE | 2021-09-25 21:49 | Hospitalist Progress Note ---
Date of Service September 25, 2021 Assessment & Plan (1) Periprosthetic fracture around internal prosthetic left knee joint: Plan: This is a 76yo F with a PMH of DM II, asthma, severe sleep apnea on 3L NC HS, combined systolic and diastolic heart failure, h/o complete heart block s/p pacemaker placement, LBBB, PVD, CKD III, dyslipidemia, morbid obesity and other medical problems as below who presents from home after fall. Tibia/fibula XR with fracture of the proximal tibia at the distal aspect of the tibial component of the knee arthroplasty. There is associated soft tissue swelling Left hip x-ray showed no evidence of acute osseous injury. Ortho on board Recommended conservative management and hinged knee brace with nonweightbearing If the bracing would fail for any reason, the patient may require ORIF versus a revision tibial component to be placed. If surgery required, patient will need to be transferred to tertiary care facility to get it done Continue nonoperative management as per Ortho Orthotic consult placed by Ortho to measure for the brace Hinged knee brace to be on at all times. May loosen for bathing. No ROM of knee at this time. PT OT eval. NWB LLE with brace. Continue pain control We will consider inpatient rehab Right knee pain Will consider to get an x-ray of the R knee if pain worsening Continue pain control Clinically improved (2) UTI (urinary tract infection): (3) Leukocytosis: Plan: WBC 17. Afebrile, lactate 2.2 on admission Patient was started on cefepime IV then antibiotic changed to Zosyn and Vanco Vanco discontinued today since urine culture grew gram-negative bacilli Urine culture grew E. coli pansensitive WBC improved to 9.8 IV Zosyn discontinued and transition to p.o. amoxicillin (4) Uncontrolled type II diabetes mellitus: Plan: Most recent hemoglobin A1c 15.5 on 09/23/2021 Currently on Lantus and insulin sliding scale during the hospital course Home regimen includes Lantus 68u BID, 10u TIDM [facility]olog[facility] Pharmacy on board for glycemic management Continue monitor blood sugar (5) Hyperkalemia: Plan: Potassium on admission 5.2 Losartan was placed on hold Potassium 4.6 today Continue monitor BMP (6) Combined congestive systolic and diastolic heart failure: Plan: Appears compensated. Lasix on hold due to low BP and ELOY IV fluid was discontinued today due to the risk of volume overload We will monitor closely for sign of volume overload (7) CKD (chronic kidney disease), stage III: Plan: ELOY on CKD stage III Creatinine on admission worsening to 3.08, creatinine (baseline 1.6-1.8). Continue to hold Lasix and losartan Renal ultrasound showed no obstruction or hydronephrosis Continue monitor BMP daily (8) HTN (hypertension): Plan: Continue carvedilol, holding losartan as discussed above Stable (9) Asthma: Plan: Stable. Continue home inhalers, supplemental O2 HS (10) Complete heart block: Plan: S/p pacemaker placement. ECG with atrial-paced rhythm (11) Dyslipidemia: Plan: Continue statin (12) PVD (peripheral vascular disease): Plan: Continue aspirin, plavix (13) Morbid obesity due to excess calories: Plan: PT OT/eval DVT Ppx: on heparin subcu Code status: FULL Dispo: Continue monitor closely Will need inpatient rehab Admission and Anticipated Discharge Date Admission Date: September 22, 2021 Subjective Patient was seen and examined for follow-up of knee pain and ELOY Lying in bed with no acute distress with at bedside Patient said pain is improved today compared to yesterday She seems to be a little confused today compared to yesterday Update provided with an answered all his questions Denies any chest pain, palpitation, dizziness, SOB Review of Systems Review of Systems: All systems reviewed & are unremarkable except as noted in Subjective Physical Exam Physical Exam: General- No acute distress, obese Head- atraumatic Eyes- PERRL, EOMI, ENT- oropharynx clear Neck- supple, no JVD Lungs- clear to auscultation Heart- regular rhythm; no murmur Abdomen- normal bowel sounds, soft, nontender Extremities- no calf tenderness, +right knee with brace one Neuro- alert, oriented x 3; PERRL, EOMI; no facial palsy; no dysarthria Skin- warm & dry Results & Data Results & Data ([facility]) Vital Signs (Past 12 Hours) Vital Signs Temp Pulse Pulse Resp BP Pulse Ox 09/25/21 20:06 36.8 C 94 H 20 146/66 H 95 09/25/21 18:54 36.4 C L 99 H 20 132/75 96 09/25/21 15:10 36.7 C 91 H 18 127/64 99 09/25/21 14:17 92 H 09/25/21 11:18 36.8 C 86 18 106/48 L 99
[2021-09-26] MEDS: HEPARIN SOD 5,000 UNIT/0.5 ML VIAL SQ SCH ×3 (06:19→20:17)
[2021-09-26 07:49] LABS: BUN Creatinine Ratio 15.6 (10-20); Calcium 8.4 mg/dl (8.5-10.1); Creatinine Clr Calc Pharmacy 23.9 ml/min; Est GFR (African American) 18.6 ml/min; Potassium 4.8 mmol/L (3.5-5.1)
[2021-09-26] MEDS: traMADol HCL 50 MG TABLET PO PRN (08:24)
[2021-09-26] MEDS: AMOXICILLIN 500 MG CAP PO SCH ×2 (08:24→20:18)
[2021-09-26] MEDS: DICLOFENAC SOD 1% GEL 100 GM TUBE EXT SCH ×4 (08:25→20:17)
[2021-09-26] MEDS: CYANOCOBALAMIN (B-12) 100 MCG TABLET PO SCH (08:25)
[2021-09-26] MEDS: CLOPIDOGREL BISULFATE 75 MG TAB PO SCH (08:26)
[2021-09-26] MEDS: MONTELUKAST SODIUM 10 MG TABLET PO SCH (08:26)
[2021-09-26] MEDS: ROSUVASTATIN CALCIUM 20 MG TAB PO SCH (08:26)
[2021-09-26] MEDS: ASPIRIN 81 MG ECTAB PO SCH (08:26)
[2021-09-26] MEDS: INSULIN ASPART PER UNIT SC SCH ×4 (08:27→20:15)
[2021-09-26] MEDS: BUDESONIDE AQ (RHINOCORT AQ) NASAL SPRAY 32 MCG NAE SCH (08:28)
[2021-09-26] MEDS: TRIAMCINOLONE ACET 0.025% CR 15 GM TUBE TOP SCH ×2 (08:28→20:17)
[2021-09-26] MEDS: CEROVITE ADV FORMULA TAB PO SCH (08:28)
[2021-09-26] MEDS: UMECLIDINIUM BROMIDE 62.5MCG/BLISTER 7 PUFFS/INHALER INH SCH (08:29)
--- NOTE | 2021-09-26 09:18 | Orthopedic Progress Note ---
Date of Service September 26, 2021 Assessment & Plan (1) Shital-prosthetic fracture of proximal tibia: Plan: HD 4 Pt being treated Non Op for periprosthetic Tiba fx. Hinged knee brace to be on at all times. May loosen for bathing. No ROM of knee at this time. Begin PT/OT. NWB LLE with brace. Pain management as written. Pt will likely need Rehab stay prior to returning home. Await PT results. Admission and Anticipated Discharge Date Admission Date: September 22, 2021 Subjective Recheck on patient for left knee periprosthetic proximal tibial fracture. She seems to be mildly confused. No current complaints. Her brace is not currently in place. Review of Systems Review of Systems: All systems reviewed & are unremarkable except as noted in Subjective Physical Exam Physical Exam: Left knee with ecchymosis and bruising proximal lower leg. No calf tenderness. Toes mobile. Distaly pulses and sensation intact. Brace not currently on. Constitutional: + obese; no acute distress Results & Data ([facility]) Vital Signs (Past 12 Hours) Vital Signs Temp Pulse Pulse Resp BP Pulse Ox 09/26/21 07:45 36.9 C 99 H 20 123/81 97 09/26/21 07:00 97 H 09/26/21 03:47 82 09/25/21 23:57 36.6 C 96 H 20 145/65 H 99 (1) Shital-prosthetic fracture of proximal tibia Encounter type: initial encounter Qualified Code(s): M97.8XXA - Periprosthetic fracture around other internal prosthetic joint, initial encounter; Z96.659 - Presence of unspecified artificial knee joint
[2021-09-26] MEDS: HYDROmorphone INJ 0.5 MG/0.5 ML SYR IV PRN (10:25)
--- NOTE | 2021-09-26 11:54 | Nephrology Progress Note ---
Date of Service September 26, 2021 Assessment & Plan (1) [id number] renal failure: Plan: Renal functions have improved serum creatinine is 2.7, urine output has improved as well, continue to hold Lasix and losartan for now -No need for IV fluids as she can orally. Avoid nephrotoxic medication BMP q. 24 -No Further investigations needed at the moment. Admission and Anticipated Discharge Date Admission Date: September 22, 2021 Subjective Patient was considerably sleeping ,no current complaints. Her brace is not currently in place. Review of Systems Review of Systems: All systems reviewed & are unremarkable except as noted in Subjective Physical Exam Physical Exam: PHYSICAL EXAMINATION: GENERAL: Awake, alert, oriented x 3, normal speech, no respiratory distress. CHEST: Bilaterally clear to auscultation. CARDIOVASCULAR: S1 and S2, regular. ABDOMEN: Soft, nontender, obese. EXTREMITIES: Shows trace to 1+ edema related with obesity. Results & Data ([facility]) Vital Signs (Past 12 Hours) Vital Signs Temp Pulse Pulse Resp BP Pulse Ox 09/26/21 07:45 36.9 C 99 H 20 123/81 97 09/26/21 07:00 97 H 09/26/21 03:47 82 09/25/21 23:57 36.6 C 96 H 20 145/65 H 99 Laboratory Results 09/24/21 00:41 09/26/21 06:48
[2021-09-26] MEDS: INSULIN GLARGINE SOLOSTAR 100 UNITS/ML 3 ML PEN SC SCH (20:16)
[2021-09-26] MEDS: SODIUM CHLORIDE 0.9% 1000ML 1,000 ML IV SCH (20:17)
--- NOTE | 2021-09-26 22:48 | Hospitalist Progress Note ---
Date of Service September 26, 2021 Assessment & Plan (1) Periprosthetic fracture around internal prosthetic left knee joint: Plan: This is a 76yo F with a PMH of DM II, asthma, severe sleep apnea on 3L NC HS, combined systolic and diastolic heart failure, h/o complete heart block s/p pacemaker placement, LBBB, PVD, CKD III, dyslipidemia, morbid obesity and other medical problems as below who presents from home after fall. Tibia/fibula XR with fracture of the proximal tibia at the distal aspect of the tibial component of the knee arthroplasty. There is associated soft tissue swelling Left hip x-ray showed no evidence of acute osseous injury. Ortho on board Recommended conservative management and hinged knee brace with nonweightbearing If the bracing would fail for any reason, the patient may require ORIF versus a revision tibial component to be placed. If surgery required, patient will need to be transferred to tertiary care facility to get it done Continue nonoperative management as per Ortho Orthotic consult placed by Ortho to measure for the brace Hinged knee brace to be on at all times. May loosen for bathing. No ROM of knee at this time. PT OT eval. NWB LLE with brace. Continue pain control We will consider inpatient rehab Right knee pain Will consider to get an x-ray of the R knee if pain worsening Continue pain control Clinically improved (2) UTI (urinary tract infection): (3) Leukocytosis: Plan: WBC 17. Afebrile, lactate 2.2 on admission Patient was started on cefepime IV then antibiotic changed to Zosyn and Vanco Vanco discontinued today since urine culture grew gram-negative bacilli Urine culture grew E. coli pansensitive WBC improved to 9.8 IV Zosyn discontinued and transition to p.o. amoxicillin (4) Uncontrolled type II diabetes mellitus: Plan: Most recent hemoglobin A1c 15.5 on 09/23/2021 Currently on Lantus and insulin sliding scale during the hospital course Home regimen includes Lantus 68u BID, 10u TIDM [facility] on board for glycemic management Continue monitor blood sugar (5) Hyperkalemia: Plan: Potassium on admission 5.2 Losartan was placed on hold Potassium 4.8today Continue monitor BMP (6) Combined congestive systolic and diastolic heart failure: Plan: Appears compensated. Lasix on hold due to low BP and ELOY IV fluid was discontinued today due to the risk of volume overload We will monitor closely for sign of volume overload (7) CKD (chronic kidney disease), stage III: Plan: ELOY on CKD stage III Creatinine on admission worsening to 3.08, creatinine (baseline 1.6-1.8). Creatinine improves to 2.76 Continue to hold Lasix and losartan Nephrology on board Renal ultrasound showed no obstruction or hydronephrosis Continue monitor BMP daily (8) HTN (hypertension): Plan: Continue carvedilol, holding losartan as discussed above Stable (9) Asthma: Plan: Stable. Continue home inhalers, supplemental O2 HS (10) Complete heart block: Plan: S/p pacemaker placement. ECG with atrial-paced rhythm (11) Dyslipidemia: Plan: Continue statin (12) PVD (peripheral vascular disease): Plan: Continue aspirin, plavix (13) Morbid obesity due to excess calories: Plan: PT OT/eval DVT Ppx: on heparin subcu Code status: FULL Dispo: Continue monitor closely Will need inpatient rehab Admission and Anticipated Discharge Date Admission Date: September 22, 2021 Subjective Patient was seen and examined for follow-up of knee pain and ELOY Lying in bed with no acute distress Pt seems to be a little confused tonight Pain improves in her left knee Denies any chest pain, palpitation, dizziness, SOB Review of Systems Review of Systems: All systems reviewed & are unremarkable except as noted in Subjective Physical Exam Physical Exam: General- No acute distress, obese Head- atraumatic Eyes- PERRL, EOMI, ENT- oropharynx clear Neck- supple, no JVD Lungs- clear to auscultation Heart- regular rhythm; no murmur Abdomen- normal bowel sounds, soft, nontender Extremities- no calf tenderness, +right knee with brace one Neuro- alert, oriented x 3; PERRL, EOMI; no facial palsy; no dysarthria Skin- warm & dry Results & Data Results & Data ([facility]) Vital Signs (Past 12 Hours) Vital Signs Temp Pulse Pulse Resp BP Pulse Ox 09/26/21 19:13 36.9 C 91 H 18 148/76 H 99 09/26/21 14:51 36.5 C 89 20 129/70 99 09/26/21 14:20 93 H
[2021-09-27] MEDS: HEPARIN SOD 5,000 UNIT/0.5 ML VIAL SQ SCH ×3 (04:56→20:25)
[2021-09-27] MEDS: HYDROmorphone INJ 0.5 MG/0.5 ML SYR IV PRN ×3 (05:47→18:23)
[2021-09-27 06:58] LABS: Hematocrit (blood only) 30.6 % (37-47); Hemoglobin 9.8 g/dL (12.0-16.0); Mean Corpuscular Hemoglobin 30.7 pg (25-34); Mean Corpuscular Volume 95.9 fL (80-100); Mean Platelet Volume 9.9 fL (7.4-10.4); Nucleated RBC # (auto) 0.02 K/uL (0-0); Nucleated RBC % (auto) 0.3 %; Platelet Count 167 K/uL (130-400); RDW Coefficient of Variation 15.1 % (11.5-14.5); RDW Standard Deviation 52.6 fL (36.4-46.3); Red Blood Count 3.19 M/uL (4.2-5.4); White Blood Count 6.41 K/uL (4.8-10.8)
[2021-09-27 07:26] LABS: BUN Creatinine Ratio 16.7 (10-20); Calcium 8.4 mg/dl (8.5-10.1); Creatinine Clr Calc Pharmacy 31.7 ml/min; Est GFR (Non-African American) 22.4 ml/min; Potassium 4.8 mmol/L (3.5-5.1)
[2021-09-27] MEDS: UMECLIDINIUM BROMIDE 62.5MCG/BLISTER 7 PUFFS/INHALER INH SCH (08:57)
[2021-09-27] MEDS: AMOXICILLIN 500 MG CAP PO SCH ×2 (08:57→20:26)
[2021-09-27] MEDS: ASPIRIN 81 MG ECTAB PO SCH (08:58)
[2021-09-27] MEDS: BUDESONIDE AQ (RHINOCORT AQ) NASAL SPRAY 32 MCG NAE SCH (08:58)
[2021-09-27] MEDS: ROSUVASTATIN CALCIUM 20 MG TAB PO SCH (08:59)
[2021-09-27] MEDS: CYANOCOBALAMIN (B-12) 100 MCG TABLET PO SCH (08:59)
[2021-09-27] MEDS: CLOPIDOGREL BISULFATE 75 MG TAB PO SCH (09:00)
[2021-09-27] MEDS: DICLOFENAC SOD 1% GEL 100 GM TUBE EXT SCH ×4 (09:01→20:25)
[2021-09-27] MEDS: INSULIN ASPART PER UNIT SC SCH ×4 (09:12→20:11)
[2021-09-27] MEDS: CEROVITE ADV FORMULA TAB PO SCH (10:47)
[2021-09-27] MEDS: MONTELUKAST SODIUM 10 MG TABLET PO SCH (10:47)
[2021-09-27] MEDS: TRIAMCINOLONE ACET 0.025% CR 15 GM TUBE TOP SCH ×2 (10:48→20:25)
--- NOTE | 2021-09-27 11:40 | CT Scan Report ---
CT OF THE HEAD WITHOUT CONTRAST CLINICAL HISTORY: Confusion. COMPARISON STUDY: Head CT September 23, 2021. CT DOSE: 1839.87 mGy.cm TECHNIQUE: Helical axial images of the head were obtained without IV contrast. Automated exposure con trol was utilized for the study. A dose lowering technique was utilized adhering to the principles o f ALARA. FINDINGS: No acute intracranial hemorrhage, midline shift or mass effect is present. White matter hyp odensity suggests small vessel disease. The ventricular system is unremarkable. The basal cisterns ar e patent. No extra-axial collections are present. There are no findings to suggest acute dural sinus thrombosis or acute territorial infarct. No significant calvarial abnormalities are present. Mucous r etention cyst within the left maxillary sinus is incidentally noted. IMPRESSION: No acute intracranial findings. ACT 112: Negative or not required by law. Electronically signed by: Sushil Michele M.D. 09/27/2021 11:38 AM
[2021-09-27] MEDS: SODIUM CHLORIDE 0.9% 1000ML 1,000 ML IV SCH (15:33)
--- NOTE | 2021-09-27 17:51 | Hospitalist Progress Note ---
Date of Service September 27, 2021 Assessment & Plan (1) Periprosthetic fracture around internal prosthetic left knee joint: Plan: This is a 76yo F with a PMH of DM II, asthma, severe sleep apnea on 3L NC HS, combined systolic and diastolic heart failure, h/o complete heart block s/p pacemaker placement, LBBB, PVD, CKD III, dyslipidemia, morbid obesity and other medical problems as below who presents from home after fall. Tibia/fibula XR with fracture of the proximal tibia at the distal aspect of the tibial component of the knee arthroplasty. There is associated soft tissue swelling Left hip x-ray showed no evidence of acute osseous injury. Ortho on board Recommended conservative management and hinged knee brace with nonweightbearing If the bracing would fail for any reason, the patient may require ORIF versus a revision tibial component to be placed. If surgery required, patient will need to be transferred to tertiary care facility to get it done Continue nonoperative management as per Ortho Orthotic consult placed by Ortho to measure for the brace Hinged knee brace to be on at all times. May loosen for bathing. No ROM of knee at this time. PT OT eval. NWB LLE with brace. Continue pain control We will consider inpatient rehab Right knee pain Will consider to get an x-ray of the R knee if pain worsening Continue pain control Clinically improved (2) UTI (urinary tract infection): (3) Leukocytosis: Plan: WBC 17. Afebrile, lactate 2.2 on admission Patient was started on cefepime IV then antibiotic changed to Zosyn and Vanco Vanco discontinued today since urine culture grew gram-negative bacilli Urine culture grew E. coli pansensitive WBC normalized at 6.4 IV Zosyn discontinued and transition to p.o. amoxicillin (4) Uncontrolled type II diabetes mellitus: Plan: Most recent hemoglobin A1c 15.5 on 09/23/2021 Currently on Lantus and insulin sliding scale during the hospital course Home regimen includes Lantus 68u BID, 10u TIDM [facility] on board for glycemic management Continue monitor blood sugar (5) Hyperkalemia: Plan: Potassium on admission 5.2 Losartan was placed on hold Potassium 4.8 today Continue monitor BMP (6) Combined congestive systolic and diastolic heart failure: Plan: Appears compensated. Lasix on hold due to low BP and ELOY IV fluid was discontinued today due to the risk of volume overload Continue monitor closely for sign of volume overload (7) CKD (chronic kidney disease), stage III: Plan: ELOY on CKD stage III Creatinine on admission worsening to 3.08, creatinine (baseline 1.6-1.8). Creatinine improves from 2.76 to 2.09 Continue to hold Lasix and losartan Nephrology on board Renal ultrasound showed no obstruction or hydronephrosis Continue monitor BMP daily (8) HTN (hypertension): Plan: Continue carvedilol, holding losartan as discussed above Stable (9) Asthma: Plan: Stable. Continue home inhalers, supplemental O2 HS (10) Complete heart block: Plan: S/p pacemaker placement. ECG with atrial-paced rhythm (11) Dyslipidemia: Plan: Continue statin (12) PVD (peripheral vascular disease): Plan: Continue aspirin, plavix (13) Morbid obesity due to excess calories: Plan: PT OT/eval DVT Ppx: on heparin subcu Code status: FULL Dispo: Continue monitor closely Will need inpatient rehab Admission and Anticipated Discharge Date Admission Date: September 22, 2021 Subjective Patient was seen and examined for follow-up of knee pain and ELOY Lying in bed with no acute distress Pt is slightly more awake and confused Pain improves in her left knee Denies any chest pain, palpitation, dizziness, SOB Review of Systems Review of Systems: All systems reviewed & are unremarkable except as noted in Subjective Physical Exam Physical Exam: General- No acute distress, obese Head- atraumatic Eyes- PERRL, EOMI, ENT- oropharynx clear Neck- supple, no JVD Lungs- clear to auscultation Heart- regular rhythm; no murmur Abdomen- normal bowel sounds, soft, nontender Extremities- no calf tenderness, +right knee with brace one Neuro- alert, awake; PERRL, EOMI; no facial palsy; no dysarthria, confused Skin- warm & dry Results & Data Results & Data ([facility]) Vital Signs (Past 12 Hours) Vital Signs Temp Pulse Pulse Resp BP Pulse Ox 09/27/21 15:46 36.7 C 97 H 20 146/78 H 95 09/27/21 07:34 36.7 C 89 20 132/75 97 09/27/21 07:03 90
[2021-09-27] MEDS: INSULIN GLARGINE SOLOSTAR 100 UNITS/ML 3 ML PEN SC SCH (20:07)
[2021-09-28] MEDS: HEPARIN SOD 5,000 UNIT/0.5 ML VIAL SQ SCH ×3 (06:03→23:21)
[2021-09-28] MEDS: ROSUVASTATIN CALCIUM 20 MG TAB PO SCH (08:17)
[2021-09-28] MEDS: AMOXICILLIN 500 MG CAP PO SCH ×2 (08:17→22:28)
[2021-09-28] MEDS: CYANOCOBALAMIN (B-12) 100 MCG TABLET PO SCH (08:17)
[2021-09-28] MEDS: CLOPIDOGREL BISULFATE 75 MG TAB PO SCH (08:17)
[2021-09-28] MEDS: ASPIRIN 81 MG ECTAB PO SCH (08:17)
[2021-09-28] MEDS: MONTELUKAST SODIUM 10 MG TABLET PO SCH (08:17)
[2021-09-28] MEDS: CEROVITE ADV FORMULA TAB PO SCH (08:17)
[2021-09-28] MEDS: BUDESONIDE AQ (RHINOCORT AQ) NASAL SPRAY 32 MCG NAE SCH (08:18)
[2021-09-28] MEDS: UMECLIDINIUM BROMIDE 62.5MCG/BLISTER 7 PUFFS/INHALER INH SCH (08:18)
[2021-09-28] MEDS: DICLOFENAC SOD 1% GEL 100 GM TUBE EXT SCH ×4 (08:18→22:28)
[2021-09-28] MEDS: TRIAMCINOLONE ACET 0.025% CR 15 GM TUBE TOP SCH ×2 (08:19→22:28)
[2021-09-28] MEDS: INSULIN ASPART PER UNIT SC SCH ×4 (08:24→22:30)
[2021-09-28 08:27] LABS: BUN Creatinine Ratio 18.7 (10-20); Calcium 9.1 mg/dl (8.5-10.1); Creatinine Clr Calc Pharmacy 42.5 ml/min; Est GFR (African American) 37.3 ml/min; Est GFR (Non-African American) 32.2 ml/min; Potassium 4.7 mmol/L (3.5-5.1)
[2021-09-28] MEDS: HYDROmorphone INJ 0.5 MG/0.5 ML SYR IV PRN ×2 (08:35→22:23)
--- NOTE | 2021-09-28 10:35 | Pharmacy Report ---
Pharmacy Glycemic Short Note 2 - Date of Service September 28, 2021 - Glycemic Short BSG Results (Last 24 hours): 09/27/21 09/27/21 09/27/21 11:32 16:25 19:54 Glucose POC Glucose 162 H 149 H 179 H 09/28/21 09/28/21 07:33 07:55 Glucose 143 H POC Glucose 138 H OUTPATIENT ANTIDIABETIC REGIMEN: * Lantus 68 units SC BID * NovoLog 10 units SC TID * Trulicity 3 mg SC once weekly * HbA1c = 13.5% (09/23/21) ASSESSMENT: 09/28: * Received 61 units of insulin yesterday (50 units Lantus + 11 units Novolog). BSGs were acceptable: [phone] mg/dL * Fasting BSG of 138 mg/dL this AM is at goal. No change in insulin regimen necessary today. 09/25: * Patient's BSGs yesterday were [phone] mg/dL. Fasting today is 106 mg/dL. * Reduce basal by 40% to 40 units nightly. * Loosened Novolog slightly since BSGs are lower today. PLAN FOR INPATIENT GLYCEMIC CONTROL: * Hold outpatient Trulicity * Basal insulin * Lantus 50 units SC HS * Bolus insulin * NovoLog per scale ACHS or Q6hrs while NPO * Goal Range: Low 110 mg/dL - High 140 mg/dL * Correction Factor: 12 mg/dL/unit * Nutritional / Prandial insulin per carb ratio of 1 unit per 5 grams CHO consumed PLAN FOR DISCHARGE: * HbA1c of 13.5% is well above goal of less than 8% for this patient. Recommend referral to program counselor or MTM clinic for help with managing T2DM. * Given large disconnect in insulin doses between inpatient and outpatient, suspect administration technique may be compromised or minimal insulin absorption due to lipohypertrophy. Also, large difference between inpatient and outpatient diets. * Discharge insulin doses may require adjustment. Will continue to monitor inpatient trends prior to making a recommendation.
--- NOTE | 2021-09-28 10:40 | Nephrology Progress Note ---
Date of Service September 28, 2021 Assessment & Plan (1) [id number] renal failure: Plan: Though we have few OP data of her baseline renal function > would approximate it at 1.6-1.7. Renal function continue to improve w/ serum creatinine is 1.6, urine output has improved as well. mild vol OL on exam -will give 40 mg IV lasix x 1 then monitor response tomorrow -cont to hold losartan OR lasix -Avoid nephrotoxic medication -BMP q. 24 Will need renal follow up at hospital d/c in [facility]; further details to follow Care coordinated w/ Dr Moreau Admission and Anticipated Discharge Date Admission Date: September 22, 2021 Subjective pt seen and evaluated at 1030 am; confused; moaning in pain, taking minimal po Review of Systems Review of Systems: Unobtainable due to reduced consciousness Physical Exam Constitutional: well developed, well nourished, + acute distress (mild d/t confusion), + obese and + frail appearing Eyes: EOM intact bilaterally ENMT: Ears: no external ear abnormality Nose: no external nose abnormality Mouth: + dry oral mucous membranes Neck: no nuchal rigidity Respiratory: normal respiratory effort Auscultation: + diminished lung sounds and + crackles (bibasilar) Cardiovascular: Rate/Rhythm: regular rate and regular rhythm Extremities: + edema (trace) Gastrointestinal (Abdomen): Inspection/Auscultation: normal bowel sounds Percussion/Palpation: abdomen soft; abdomen nontender Musculoskeletal: Extremities: + abnormal strength c/o R knee pain and L knee in brace Skin: no rashes, warm and dry Neurologic: alvaerz, fluent speech, no tremor Psychiatric: Orientation: alert and oriented to person; + not oriented to place and + not oriented to time Results & Data ([facility]) Vital Signs (Past 12 Hours) Vital Signs Temp Pulse Pulse Resp BP Pulse Ox 09/28/21 06:48 36.8 C 96 H 20 162/80 H 92 09/28/21 03:01 36.9 C 94 H 20 160/66 H 93 09/27/21 23:18 95 H 09/27/21 22:53 36.6 C 86 20 162/76 H 96 Laboratory Results 09/27/21 06:41 09/28/21 07:55
--- NOTE | 2021-09-28 15:28 | Hospitalist Progress Note ---
Date of Service September 28, 2021 Assessment & Plan (1) Periprosthetic fracture around internal prosthetic left knee joint: Plan: This is a 76yo F with a PMH of DM II, asthma, severe sleep apnea on 3L NC HS, combined systolic and diastolic heart failure, h/o complete heart block s/p pacemaker placement, LBBB, PVD, CKD III, dyslipidemia, morbid obesity and other medical problems as below who presents from home after fall. Tibia/fibula XR with fracture of the proximal tibia at the distal aspect of the tibial component of the knee arthroplasty. There is associated soft tissue swelling Left hip x-ray showed no evidence of acute osseous injury. Ortho on board Recommended conservative management and hinged knee brace with nonweightbearing If the bracing would fail for any reason, the patient may require ORIF versus a revision tibial component to be placed. If surgery required, patient will need to be transferred to tertiary care facility to get it done Continue nonoperative management as per Ortho Orthotic consult placed by Ortho to measure for the brace Hinged knee brace to be on at all times. May loosen for bathing. No ROM of knee at this time. PT OT eval. NWB LLE with brace. Continue pain control We will consider inpatient rehab Right knee pain Consider to get an x-ray of the R knee if pain worsening Continue pain control Clinically improved (2) UTI (urinary tract infection): (3) Leukocytosis: Plan: WBC 17. Afebrile, lactate 2.2 on admission Patient was started on cefepime IV then antibiotic changed to Zosyn and Vanco Vanco discontinued today since urine culture grew gram-negative bacilli Urine culture grew E. coli pansensitive WBC normalized at 6.4 IV Zosyn discontinued and transition to p.o. amoxicillin Completed the course of Amoxicillin (4) Uncontrolled type II diabetes mellitus: Plan: Most recent hemoglobin A1c 15.5 on 09/23/2021 Currently on Lantus and insulin sliding scale during the hospital course Home regimen includes Lantus 68 unit BID, 10 unit TIDM Novolog, Trulicity Pharmacy on board for glycemic management Continue monitor blood sugar (5) Hyperkalemia: Plan: Potassium on admission 5.2 Continue to hold Losartan Potassium 4.7 today Continue monitor BMP (6) Combined congestive systolic and diastolic heart failure: Plan: Appears compensated. Lasix on hold due to low BP and ELOY IV fluid was discontinued due to the risk of volume overload Continue monitor closely for sign of volume overload Will consider to give lasix x1 today (7) CKD (chronic kidney disease), stage III: Plan: ELOY on CKD stage III Creatinine on admission worsening to 3.08, creatinine (baseline 1.6-1.8). Creatinine improves from 2.76 to 2.09--> 1.55 Continue to hold Lasix and losartan Nephrology on board Renal ultrasound showed no obstruction or hydronephrosis case discussed with nephrology that suggested to only restart either losartan OR lasix, but not both Continue monitor BMP daily (8) HTN (hypertension): Plan: Continue carvedilol, holding losartan as discussed above Stable (9) Asthma: Plan: Stable. Continue home inhalers, supplemental O2 HS (10) Complete heart block: Plan: S/p pacemaker placement. ECG with atrial-paced rhythm (11) Dyslipidemia: Plan: Continue statin (12) PVD (peripheral vascular disease): Plan: Continue aspirin, plavix (13) Morbid obesity due to excess calories: Plan: PT OT/eval DVT Ppx: on heparin subcu Code status: FULL Dispo: Continue monitor closely Will need inpatient rehab Admission and Anticipated Discharge Date Admission Date: September 22, 2021 Subjective Patient was seen and examined for follow-up of knee pain and ELOY Lying in bed with no acute distress She looks more awake today, but she is on 4L NC Denies any chest pain, palpitation, dizziness and fever Review of Systems Review of Systems: All systems reviewed & are unremarkable except as noted in Subjective Physical Exam Physical Exam: General- No acute distress, obese Head- atraumatic Eyes- PERRL, EOMI, ENT- oropharynx clear Neck- supple, no JVD Lungs- clear to auscultation Heart- regular rhythm; no murmur Abdomen- normal bowel sounds, soft, nontender Extremities- no calf tenderness, +right knee with brace one Neuro- alert, awake; PERRL, EOMI; no facial palsy; no dysarthria, confused Skin- warm & dry Results & Data Results & Data ([facility]) Vital Signs (Past 12 Hours) Vital Signs Temp Pulse Resp BP Pulse Ox 09/28/21 11:26 36.7 C 84 20 151/66 H 97 09/28/21 06:48 36.8 C 96 H 20 162/80 H 92
[2021-09-28] MEDS ORDERED: FUROSEMIDE 40 MG/4 ML VIAL IV ONE (17:12)
[2021-09-28] MEDS: INSULIN GLARGINE SOLOSTAR 100 UNITS/ML 3 ML PEN SC SCH (22:29)
[2021-09-29] MEDS: traMADol HCL 50 MG TABLET PO PRN ×4 (03:12→20:10)
[2021-09-29] MEDS: HEPARIN SOD 5,000 UNIT/0.5 ML VIAL SQ SCH ×3 (06:18→20:38)
[2021-09-29 06:44] LABS: BUN Creatinine Ratio 18.8 (10-20); Calcium 9.1 mg/dl (8.5-10.1); Creatinine Clr Calc Pharmacy 44.3 ml/min; Est GFR (African American) 39.1 ml/min; Est GFR (Non-African American) 33.8 ml/min; Potassium 4.5 mmol/L (3.5-5.1)
[2021-09-29] MEDS: DICLOFENAC SOD 1% GEL 100 GM TUBE EXT SCH ×4 (08:19→20:11)
[2021-09-29] MEDS: BUDESONIDE AQ (RHINOCORT AQ) NASAL SPRAY 32 MCG NAE SCH (08:20)
[2021-09-29] MEDS: UMECLIDINIUM BROMIDE 62.5MCG/BLISTER 7 PUFFS/INHALER INH SCH (08:20)
[2021-09-29] MEDS: LORATADINE 10 MG TAB PO PRN (08:21)
[2021-09-29] MEDS: CEROVITE ADV FORMULA TAB PO SCH (08:21)
[2021-09-29] MEDS: CYANOCOBALAMIN (B-12) 100 MCG TABLET PO SCH (08:21)
[2021-09-29] MEDS: ASPIRIN 81 MG ECTAB PO SCH (08:21)
[2021-09-29] MEDS: MONTELUKAST SODIUM 10 MG TABLET PO SCH (08:21)
[2021-09-29] MEDS: ROSUVASTATIN CALCIUM 20 MG TAB PO SCH (08:21)
[2021-09-29] MEDS: CLOPIDOGREL BISULFATE 75 MG TAB PO SCH (08:21)
[2021-09-29] MEDS: TRIAMCINOLONE ACET 0.025% CR 15 GM TUBE TOP SCH ×2 (08:22→20:37)
[2021-09-29] MEDS: AMOXICILLIN 500 MG CAP PO SCH ×2 (08:22→20:11)
[2021-09-29] MEDS: INSULIN ASPART PER UNIT SC SCH ×4 (08:25→20:33)
[2021-09-29] MEDS ORDERED: FUROSEMIDE 40 MG/4 ML VIAL IV ONE (09:18)
--- NOTE | 2021-09-29 09:18 | Nephrology Progress Note ---
Date of Service September 29, 2021 Assessment & Plan (1) [id number] renal failure: Plan: Though we have few OP data of her baseline renal function > would approximate it at 1.6-1.7. Renal function continues to improve w/ serum creatinine is 1.5, urine output has improved as well. still hypoxic and w/mild vol OL on exam -ordered another 40 mg IV lasix x 1 then monitor response -repeat CXR ordered -cont to hold losartan -Avoid nephrotoxic medication -BMP q. 24hr Will need renal follow up at hospital d/c in [facility]; further details to follow Care coordinated w/ Dr Moreau Admission and Anticipated Discharge Date Admission Date: September 22, 2021 Subjective no interval events. c/o ongoing pain but again hard for her to stay on topic, to delineate Review of Systems Review of Systems: Unobtainable due to reduced consciousness (delirium) Physical Exam Constitutional: well developed, well nourished, + obese and + frail appearing; no acute distress Eyes: EOM intact bilaterally ENMT: Ears: no external ear abnormality Nose: no external nose abnormality Mouth: + dry oral mucous membranes Neck: no nuchal rigidity Respiratory: normal respiratory effort Auscultation: + diminished lung sounds and + crackles (bibasilar) Cardiovascular: Rate/Rhythm: regular rate and regular rhythm Extremities: + edema (trace) Gastrointestinal (Abdomen): Inspection/Auscultation: normal bowel sounds Percussion/Palpation: abdomen soft; abdomen nontender Musculoskeletal: Extremities: + abnormal strength Skin: no rashes, warm and dry Neurologic: alvarez, more fluent and more speech today but limited insight, not tremor; + generalized weakness Psychiatric: Orientation: alert and oriented to person; + not oriented to place and + not oriented to time Results & Data ([facility]) Vital Signs (Past 12 Hours) Vital Signs Temp Pulse Pulse Resp BP Pulse Ox 09/29/21 07:15 91 H 09/29/21 04:00 36.9 C 90 20 112/63 97 09/28/21 23:03 36.9 C 87 18 133/73 98 09/28/21 22:30 84 Laboratory Results 09/27/21 06:41 09/29/21 05:53
[2021-09-29] MEDS: ACETAMINOPHEN 325 MG TAB PO PRN (09:27)
--- NOTE | 2021-09-29 11:03 | XRay Report ---
XR chest 1V portable HISTORY: 76 years-old Female hypoxia, ?vol overload acute shortness of breath with hypoxia COMPARISON: Chest radiograph 09/22/2021 TECHNIQUE: Portable AP view of the chest FINDINGS: Cardiac silhouette is enlarged. Left subclavian pacer. Trace pleural effusions. Mild pulmonary vascul ar congestion. No pneumothorax or lobar airspace consolidation. Degenerative changes of the shoulders and spine. IMPRESSION: 1. Cardiomegaly with pulmonary vascular congestion. 2. Suggested trace pleural effusions. ACT 112: Negative or not required by law. The above report was generated using voice recognition software. It may contain grammatical, syntax o r spelling errors. Electronically signed by: Aditya Gallegos M.D. 09/29/2021 11:02 AM
--- NOTE | 2021-09-29 16:11 | Hospitalist Progress Note ---
Date of Service September 29, 2021 Assessment & Plan (1) Periprosthetic fracture around internal prosthetic left knee joint: Plan: This is a 76yo F with a PMH of DM II, asthma, severe sleep apnea on 3L NC HS, combined systolic and diastolic heart failure, h/o complete heart block s/p pacemaker placement, LBBB, PVD, CKD III, dyslipidemia, morbid obesity and other medical problems as below who presents from home after fall. Tibia/fibula XR with fracture of the proximal tibia at the distal aspect of the tibial component of the knee arthroplasty. There is associated soft tissue swelling Left hip x-ray showed no evidence of acute osseous injury. Ortho on board Recommended conservative management and hinged knee brace with nonweightbearing If the bracing would fail for any reason, the patient may require ORIF versus a revision tibial component to be placed. If surgery required, patient will need to be transferred to tertiary care facility to get it done Continue nonoperative management as per Ortho Orthotic consult placed by Ortho to measure for the brace Hinged knee brace to be on at all times. May loosen for bathing. No ROM of knee at this time. PT OT eval. NWB LLE with brace. Continue pain control plan to go to rehab Right knee pain Consider to get an x-ray of the R knee if pain worsening Continue pain control Clinically improved (2) UTI (urinary tract infection): (3) Leukocytosis: Plan: WBC 17. Afebrile, lactate 2.2 on admission Patient was started on cefepime IV then antibiotic changed to Zosyn and Vanco Vanco discontinued today since urine culture grew gram-negative bacilli Urine culture grew E. coli pansensitive WBC normalized at 6.4 IV Zosyn discontinued and transition to p.o. amoxicillin Completed the course of Amoxicillin (4) Uncontrolled type II diabetes mellitus: Plan: Most recent hemoglobin A1c 15.5 on 09/23/2021 Currently on Lantus and insulin sliding scale during the hospital course Home regimen includes Lantus 68 unit BID, 10 unit TIDM Novolog, Trulicity Pharmacy on board for glycemic management Continue monitor blood sugar (5) Hyperkalemia: Plan: Potassium on admission 5.2 Continue to hold Losartan Potassium 4.5 today Continue monitor BMP (6) Combined congestive systolic and diastolic heart failure: Plan: Appears compensated. Lasix on hold due to low BP and ELOY IV fluid was discontinued due to the risk of volume overload Continue monitor closely for sign of volume overload Will give lasix 40mg IV x1 again today Monitor BMP while on lasix (7) CKD (chronic kidney disease), stage III: Plan: ELOY on CKD stage III Creatinine on admission worsening to 3.08, creatinine (baseline 1.6-1.8). Creatinine improves from 2.76 to 2.09--> 1.55-->1.49 Continue to hold losartan Nephrology on board Renal ultrasound showed no obstruction or hydronephrosis case discussed with nephrology that suggested to only restart either losartan OR lasix, but not both Continue monitor BMP daily (8) HTN (hypertension): Plan: Continue carvedilol, holding losartan as discussed above Stable (9) Asthma: Plan: Stable. Continue home inhalers, supplemental O2 HS (10) Complete heart block: Plan: S/p pacemaker placement. ECG with atrial-paced rhythm (11) Dyslipidemia: Plan: Continue statin (12) PVD (peripheral vascular disease): Plan: Continue aspirin, plavix (13) Morbid obesity due to excess calories: Plan: PT OT/eval DVT Ppx: on heparin subcu Code status: FULL Dispo: Continue monitor closely Will need inpatient rehab Admission and Anticipated Discharge Date Admission Date: September 22, 2021 Subjective Patient was seen and examined for follow-up of knee pain and ELOY Lying in bed with no acute distress Pt metal status is back because whe she asked me where I was from I told her that I was from [facility]. 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 [employer] ([place]) She said that she only uses oxygen at night She said that pain is control Denies any chest pain, palpitation, dizziness and fever Review of Systems Review of Systems: All systems reviewed & are unremarkable except as noted in Subjective Physical Exam Physical Exam: General- No acute distress, obese Head- atraumatic Eyes- PERRL, EOMI, ENT- oropharynx clear Neck- supple, no JVD Lungs- clear to auscultation Heart- regular rhythm; no murmur Abdomen- normal bowel sounds, soft, nontender Extremities- no calf tenderness, +right knee with brace one Neuro- alert, awake, oriented x3 PERRL, EOMI; no facial palsy; no dysarthria, confused Skin- warm & dry Results & Data Results & Data ([facility]) Vital Signs (Past 12 Hours) Vital Signs Temp Pulse Pulse Resp BP Pulse Ox 09/29/21 14:55 87 09/29/21 12:52 36.4 C L 87 19 126/72 97 09/29/21 07:55 38.3 C H 93 H 20 161/75 H 97 09/29/21 07:15 91 H
[2021-09-29] MEDS: INSULIN GLARGINE SOLOSTAR 100 UNITS/ML 3 ML PEN SC SCH (20:12)
[2021-09-30] MEDS: HEPARIN SOD 5,000 UNIT/0.5 ML VIAL SQ SCH ×3 (06:00→20:59)
[2021-09-30 06:40] LABS: Hematocrit (blood only) 31.9 % (37-47); Hemoglobin 9.9 g/dL (12.0-16.0); Mean Corpuscular Hemoglobin 29.8 pg (25-34); Mean Corpuscular Volume 96.1 fL (80-100); Mean Platelet Volume 9.6 fL (7.4-10.4); Nucleated RBC # (auto) 0.04 K/uL (0-0); Nucleated RBC % (auto) 0.4 %; Platelet Count 263 K/uL (130-400); RDW Coefficient of Variation 15.1 % (11.5-14.5); RDW Standard Deviation 53.1 fL (36.4-46.3); Red Blood Count 3.32 M/uL (4.2-5.4)
[2021-09-30 07:08] LABS: BUN Creatinine Ratio 18.4 (10-20); Calcium 9.1 mg/dl (8.5-10.1); Creatinine Clr Calc Pharmacy 41.5 ml/min; Est GFR (African American) 36.5 ml/min; Est GFR (Non-African American) 31.5 ml/min; Potassium 4.4 mmol/L (3.5-5.1)
[2021-09-30] MEDS: UMECLIDINIUM BROMIDE 62.5MCG/BLISTER 7 PUFFS/INHALER INH SCH (08:15)
[2021-09-30] MEDS: BUDESONIDE AQ (RHINOCORT AQ) NASAL SPRAY 32 MCG NAE SCH (08:15)
[2021-09-30] MEDS: ROSUVASTATIN CALCIUM 20 MG TAB PO SCH (08:16)
[2021-09-30] MEDS: AMOXICILLIN 500 MG CAP PO SCH ×2 (08:16→20:57)
[2021-09-30] MEDS: CEROVITE ADV FORMULA TAB PO SCH (08:16)
[2021-09-30] MEDS: MONTELUKAST SODIUM 10 MG TABLET PO SCH (08:16)
[2021-09-30] MEDS: DICLOFENAC SOD 1% GEL 100 GM TUBE EXT SCH ×4 (08:16→20:57)
[2021-09-30] MEDS: ASPIRIN 81 MG ECTAB PO SCH (08:16)
[2021-09-30] MEDS: LORATADINE 10 MG TAB PO PRN (08:16)
[2021-09-30] MEDS: CYANOCOBALAMIN (B-12) 100 MCG TABLET PO SCH (08:17)
[2021-09-30] MEDS: INSULIN ASPART PER UNIT SC SCH ×4 (08:17→20:57)
[2021-09-30] MEDS: TRIAMCINOLONE ACET 0.025% CR 15 GM TUBE TOP SCH ×2 (08:17→20:59)
[2021-09-30] MEDS: CLOPIDOGREL BISULFATE 75 MG TAB PO SCH (08:17)
[2021-09-30] MEDS: traMADol HCL 50 MG TABLET PO PRN ×2 (08:17→23:27)
[2021-09-30] MEDS: HYDROmorphone INJ 0.5 MG/0.5 ML SYR IV PRN ×2 (10:09→20:52)
--- NOTE | 2021-09-30 10:30 | Pharmacy Report ---
Pharmacy Glycemic Short Note 2 - Date of Service September 30, 2021 - Glycemic Short BSG Results (Last 24 hours): 09/29/21 09/29/21 09/29/21 11:33 16:48 20:03 Glucose POC Glucose 161 H 143 H 153 H 09/30/21 09/30/21 06:06 07:23 Glucose 126 H POC Glucose 137 H OUTPATIENT ANTIDIABETIC REGIMEN: * Lantus 68 units SC BID * NovoLog 10 units SC TID * Trulicity 3 mg SC once weekly * HbA1c = 13.5% (09/23/21) ASSESSMENT: 09/30: * No changes in stressors. Received 70 units of insulin yesterday (50 Lantus + 20 Novolog). BSGs were controlled: [phone] mg/dL. * Fasting BSG controlled at 137 mg/dL this AM. * No changes necessary in insulin regimen today. 09/28: * Received 61 units of insulin yesterday (50 units Lantus + 11 units Novolog). BSGs were acceptable: [phone] mg/dL * Fasting BSG of 138 mg/dL this AM is at goal. No change in insulin regimen necessary today. PLAN FOR INPATIENT GLYCEMIC CONTROL: * Hold outpatient Trulicity * Basal insulin - no change * Lantus 50 units SC HS * Bolus insulin - no change * NovoLog per scale ACHS or Q6hrs while NPO * Goal Range: Low 110 mg/dL - High 140 mg/dL * Correction Factor: 12 mg/dL/unit * Nutritional / Prandial insulin per carb ratio of 1 unit per 4 grams CHO consumed PLAN FOR DISCHARGE: * HbA1c of 13.5% is well above goal of less than 8% for this patient. Recommend referral to assistant baseball coach or MTM clinic for help with managing T2DM. * As long as PO intake / appetite improves, would recommend the following: * Reduce Lantus to 50 units SC BID - this is a 25% reduction in home dose * Increase Novolog to 10 units SC w/ breakfast, 10 units SC with lunch and 20 units SC with dinner. * Contact provider if BSGs consistently above 200 mg/dL or below 90 mg/dL.
[2021-09-30] MEDS ORDERED: FUROSEMIDE 40 MG/4 ML VIAL IV ONE (11:15)
[2021-09-30] MEDS ORDERED: XOPENEX/ATROVENT 1.25mg/0.5MG NEB COMBO NEB SCH (11:20)
[2021-09-30] MEDS: IPRATROPIUM BROMIDE NEB SOLN 0.02% 2.5 ML VIAL INH SCH ×2 (12:09→12:37)
[2021-09-30] MEDS: LEVALBUTEROL 1.25MG/0.5ML NEB INH SCH ×2 (12:10→12:37)
--- NOTE | 2021-09-30 12:21 | Communication Note ---
Date of Service: September 30, 2021 Follow up knee x-rays today demonstrate maintained alignment periprosthetic tibia fracture. There also appears to be a nondisplaced proximal fibula fract ure. Continue with brace locked in extension on at all times. May remove for hygiene purposes. Continue with nonoperative treatment.
--- NOTE | 2021-09-30 13:00 | Hospitalist Progress Note ---
Date of Service September 30, 2021 Assessment & Plan (1) Periprosthetic fracture around internal prosthetic left knee joint: Plan: per Dr. Moreau's notes with addendum: This is a 76yo F with a PMH of DM II, asthma, severe sleep apnea on 3L NC HS, combined systolic and diastolic heart failure, h/o complete heart block s/p pacemaker placement, LBBB, PVD, CKD III, dyslipidemia, morbid obesity and other medical problems as below who presents from home after fall. Tibia/fibula XR with fracture of the proximal tibia at the distal aspect of the tibial component of the knee arthroplasty. There is associated soft tissue swelling Left hip x-ray showed no evidence of acute osseous injury. Ortho on board Recommended conservative management and hinged knee brace with nonweightbearing If the bracing would fail for any reason, the patient may require ORIF versus a revision tibial component to be placed. If surgery required, patient will need to be transferred to tertiary care facility to get it done Continue nonoperative management as per Ortho Orthotic consult placed by Ortho to measure for the brace Hinged knee brace to be on at all times. May loosen for bathing. No ROM of knee at this time. PT OT eval. NWB LLE with brace. Continue pain control plan to go to rehab Right knee pain Consider to get an x-ray of the R knee if pain worsening Continue pain control Clinically improved 09/30/21 l knee pain ok reports R foot pain- Xrays ordered: pending continue brace to the l knee joint transition to Rehab when medically stable (2) UTI (urinary tract infection): (3) Leukocytosis: Plan: WBC 17. Afebrile, lactate 2.2 on admission Patient was started on cefepime IV then antibiotic changed to Zosyn and Vanco Vanco discontinued today since urine culture grew gram-negative bacilli Urine culture grew E. coli pansensitive WBC normalized at 6.4 IV Zosyn discontinued and transition to p.o. amoxicillin Completed the course of Amoxicillin 09/30/21 completed Zosyn and Amoxicillin course no urinary symptoms (4) Uncontrolled type II diabetes mellitus: Plan: Most recent hemoglobin A1c 15.5 on 09/23/2021 Currently on Lantus and insulin sliding scale during the hospital course Home regimen includes Lantus 68 unit BID, 10 unit TIDM [facility] for glycemic management Continue monitor blood sugar 09/30/21 BSG 137 - 203 (5) Hyperkalemia: Plan: Potassium on admission 5.2 Continue to hold Losartan Potassium 4.5 today Continue monitor BMP 09/30/21 resolved (6) Combined congestive systolic and diastolic heart failure: Plan: Appears compensated. Lasix on hold due to low BP and ELOY IV fluid was discontinued due to the risk of volume overload Continue monitor closely for sign of volume overload Will give lasix 40mg IV x1 again today Monitor BMP while on lasix 09/30/21 remains on 2 L (+) rales, dyspnea CXR: CHF pattern Lasix 40mg IV given PO Lasix on hold now crea 1.5 Nephro on board- appreciate the recommendations (7) CKD (chronic kidney disease), stage III: Plan: ELOY on CKD stage III Creatinine on admission worsening to 3.08, creatinine (baseline 1.6-1.8). Creatinine improves from 2.76 to 2.09--> 1.55-->1.49 Continue to hold losartan Nephrology on board Renal ultrasound showed no obstruction or hydronephrosis case discussed with nephrology that suggested to only restart either losartan OR lasix, but not both Continue monitor BMP daily 09/30/21 crea 1.5 ( baseline) Losartan on hold Lasix per above (8) HTN (hypertension): Plan: Continue carvedilol, holding losartan as discussed above Stable (9) Asthma: Plan: Continue home inhalers, supplemental O2 HS (10) Complete heart block: Plan: S/p pacemaker placement. ECG with atrial-paced rhythm (11) Dyslipidemia: Plan: Continue statin (12) PVD (peripheral vascular disease): Plan: Continue aspirin, plavix (13) Morbid obesity due to excess calories: Plan: PT OT/eval DVT Ppx: on heparin subcu Code status: FULL Dispo: Continue monitor closely Will need inpatient rehab Admission and Anticipated Discharge Date Admission Date: September 22, 2021 Subjective ff up for l knee fracture, CHF, etc seen resting in bed, comfortable on 2 L NC states she has some mild dyspnea, occasional dry cough no chest pain, palpitations, dizziness l knee feels ok reports R ankle and foot pain oriented x 2, needs cues no other symptoms Review of Systems Review of Systems: all noted and negative except for above Physical Exam Physical Exam: General- oriented x 2, not in distress, speaks in sentences with no effort or accessory muscle use Head- atraumatic Eyes- PERRL, EOMI, anicteric ENT- oropharynx clear Neck- supple, no JVD, no adenopathy, no thyromegaly; carotids +2/2, no bruits appreciated Lungs- mild rales at the bases, no wheezing Heart- normal rate, regular rhythm; no murmur, no gallop, no rub appreciated Abdomen- normal bowel sounds, nondistended, soft, nontender, no masses or hepatosplenomegaly Extremities- L knee: brace in place: no edema/ warmth/tenderness r foot: mild warmth, (+) moderate tenderness, poor ROM due to pain no pretibial edema, no calf tenderness; peripheral pulses intact Neuro- alert, oriented x 3; CN 2-12 grossly intact; motor 5/5 bilaterally;sensation 100% on all extremities; no other gross focal neurologic deficits Skin- warm & dry Results & Data Results & Data ([facility]) Vital Signs (Past 12 Hours) Vital Signs Temp Pulse Pulse Resp BP Pulse Ox 09/30/21 12:38 76 16 98 09/30/21 07:54 36.4 C L 92 H 20 159/66 H 99 09/30/21 07:19 85 09/30/21 01:09 85 all noted and reviewed including below
--- NOTE | 2021-09-30 13:24 | XRay Report ---
XR chest 1V portable HISTORY: 76 years-old Female shortness of breath acute shortness of breath COMPARISON: Chest radiograph 09/29/2021 TECHNIQUE: Portable AP view the chest FINDINGS: Cardiac silhouette is enlarged. Left subclavian pacer. Probable trace pleural effusions. Pulmonary va scular congestion. No pneumothorax or lobar airspace consolidation. The bones appear grossly intact. Sigmoidal thoracolumbar scoliosis. IMPRESSION: 1. Cardiomegaly with pulmonary vascular congestion. 2. Probable trace pleural effusions. ACT 112: Negative or not required by law. The above report was generated using voice recognition software. It may contain grammatical, syntax o r spelling errors. Electronically signed by: Aditya Gallegos M.D. 09/30/2021 1:23 PM
--- NOTE | 2021-09-30 13:41 | XRay Report ---
XR ankle RT 2V, XR foot RT 2V CLINICAL HISTORY: Right foot and ankle pain, r/o fracture COMPARISON STUDY: Right foot in the ankle radiograph 08/27/2013. FINDINGS: 3 views of the right ankle and 2 views the right foot were submitted for review. Images of the left ankle and left foot were also submitted by error. Soft tissue swelling within the right ankl e and foot. Vascular calcifications are noted. There is a large plantar heel spur, unchanged. No acut e fracture or dislocation within the right ankle. There is also soft tissue swelling within the left ankle and left foot. Small lucency at the medial base of the right fourth toe proximal phalanx. This is consistent with an age-indeterminate fracture. There is also well-corticated ossific density along the medial base of the left second toe proximal phalanx. 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 IMPRESSION: 1. No acute fracture or dislocation within the right ankle. 2. Small lucency at the medial base the right fourth toe proximal phalanx consistent with an age-inde terminate fracture. 3. There is also well-corticated ossific density along the medial base of the left second toe proxima l phalanx. 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 ACT 112: Negative or not required by law. Electronically signed by: Jj Solano M.D. 09/30/2021 1:39 PM
--- NOTE | 2021-09-30 14:08 | XRay Report ---
LEFT KNEE 2 VIEWS CLINICAL HISTORY: Proximal tibial fracture. FINDINGS: AP and crosstable lateral views of the left knee are compared to study dated 09/22/2021. A t raction device is in place along the lateral aspect of the knee end severely degrades the lateral pro jection. A left knee arthroplasty is in near-anatomic alignment. There has been undersurface remodeli ng of the patella. Proximal tibial and fibular fractures are again noted. Near-anatomic alignment is maintained. Overlying soft tissue edema persists. There is atherosclerotic calcification of the popli teal artery. IMPRESSION: Proximal tibial and fibular fractures remain in near anatomic alignment. A traction devic e is in place. Electronically signed by: Celestino Guerrero M.D. 09/30/2021 2:07 PM
--- NOTE | 2021-09-30 17:08 | Nephrology Progress Note ---
Date of Service September 30, 2021 Assessment & Plan (1) [id number] renal failure: Plan: Though we have few OP data of her baseline renal function > would approximate it at 1.6-1.7. Renal function remains at/near baseline w/ serum creatinine at 1.6, urine output acceptable as well. still hypoxic and w/mild vol OL on exam -better to continue wtih IV lasix for now > will give 20 mg IV bid 17 starting this evening; already had 40 mg IV x 1 today -ordered 1.5L FR and <2 gm daily Na diet in addition to other -cont to hold losartan -Avoid nephrotoxic medication -BMP q. 24hr Will need renal follow up at hospital d/c in [facility]; further details to follow Admission and Anticipated Discharge Date Admission Date: September 22, 2021 Subjective feels a bit better in terms of pain control; still sleeping a lot; participates minimally in ros Review of Systems Review of Systems: All systems reviewed & are unremarkable except as noted in Subjective Physical Exam Constitutional: well developed, well nourished, + obese and + frail appearing; no acute distress Eyes: EOM intact bilaterally ENMT: Ears: no external ear abnormality Nose: no external nose abnormality Mouth: + dry oral mucous membranes Neck: no nuchal rigidity Respiratory: normal respiratory effort Auscultation: + diminished lung sounds and + crackles (bibasilar) Cardiovascular: Rate/Rhythm: regular rate and regular rhythm Extremities: + edema (trace) Gastrointestinal (Abdomen): Inspection/Auscultation: normal bowel sounds Percussion/Palpation: abdomen soft; abdomen nontender Musculoskeletal: Extremities: + abnormal strength and + lower extremity abnormal to inspection (braced) Skin: no rashes, warm and dry Psychiatric: Orientation: alert and oriented to person; + not oriented to p lace and + not oriented to time Results & Data ([place]) Vital Signs (Past 12 Hours) Vital Signs Temp Pulse Pulse Resp BP Pulse Ox 09/30/21 16:19 97 H 09/30/21 12:38 76 16 98 09/30/21 07:54 36.4 C L 92 H 20 159/66 H 99 09/30/21 07:19 85 Laboratory Results 09/30/21 06:06 09/30/21 06:06
[2021-09-30] MEDS: FUROSEMIDE INJ 20 MG/2 ML VIAL IV SCH (17:34)
[2021-09-30] MEDS: INSULIN GLARGINE SOLOSTAR 100 UNITS/ML 3 ML PEN SC SCH (20:58)
[2021-10-01] MEDS ORDERED: HYDROmorphone INJ 0.5 MG/0.5 ML SYR IV STA (00:20)
[2021-10-01] MEDS: HEPARIN SOD 5,000 UNIT/0.5 ML VIAL SQ SCH ×3 (05:28→21:37)
[2021-10-01] MEDS: ASPIRIN 81 MG ECTAB PO SCH (07:29)
[2021-10-01] MEDS: MONTELUKAST SODIUM 10 MG TABLET PO SCH (07:29)
[2021-10-01] MEDS: AMOXICILLIN 500 MG CAP PO SCH (07:29)
[2021-10-01] MEDS: CLOPIDOGREL BISULFATE 75 MG TAB PO SCH (07:30)
[2021-10-01] MEDS: ROSUVASTATIN CALCIUM 20 MG TAB PO SCH (07:30)
[2021-10-01] MEDS: CEROVITE ADV FORMULA TAB PO SCH (07:30)
[2021-10-01] MEDS: BUDESONIDE AQ (RHINOCORT AQ) NASAL SPRAY 32 MCG NAE SCH (07:31)
[2021-10-01] MEDS: DICLOFENAC SOD 1% GEL 100 GM TUBE EXT SCH ×4 (07:31→21:33)
[2021-10-01] MEDS: CYANOCOBALAMIN (B-12) 100 MCG TABLET PO SCH (07:31)
[2021-10-01] MEDS: UMECLIDINIUM BROMIDE 62.5MCG/BLISTER 7 PUFFS/INHALER INH SCH (07:32)
[2021-10-01] MEDS: FUROSEMIDE INJ 20 MG/2 ML VIAL IV SCH ×2 (07:36→17:37)
[2021-10-01] MEDS: TRIAMCINOLONE ACET 0.025% CR 15 GM TUBE TOP SCH ×2 (07:40→21:37)
--- NOTE | 2021-10-01 08:18 | Nephrology Progress Note ---
Date of Service October 01, 2021 Assessment & Plan (1) [id number] renal failure: Plan: Though we have few OP data of her baseline renal function > would approximate it at 1.6-1.7. Renal function remains at/near baseline w/ serum creatinine at 1.6 yesterday and today, urine output acceptable as well. still hypoxic and w/mild vol OL on exam -continue 20 mg IV bid 17 -cont 1.5L FR and <2 gm daily Na diet in addition to other -cont to hold losartan -Avoid nephrotoxic medication -BMP q. 24hr -will need nephro follow up after discharge-details to follow Admission and Anticipated Discharge Date Admission Date: September 22, 2021 Subjective no interval events. tells me she hurts "everywhere" but joel L knee and R heel Physical Exam Constitutional: well developed, well nourished, + obese and + frail appearing; no acute distress Eyes: EOM intact bilaterally ENMT: Ears: no external ear abnormality Nose: no external nose abnormality Mouth: + dry oral mucous membranes Neck: no nuchal rigidity Respiratory: normal respiratory effort Auscultation: + diminished lung sounds and + crackles (bibasilar) Cardiovascular: Rate/Rhythm: regular rate and regular rhythm Extremities: + edema (trace) Gastrointestinal (Abdomen): Inspection/Auscultation: normal bowel sounds Percussion/Palpation: abdomen soft; abdomen nontender Musculoskeletal: Extremities: + abnormal strength and + lower extremity abnormal to inspection (braced) Skin: no rashes, warm and dry Psychiatric: Orientation: alert and oriented to person; + not oriented to good ce and + not oriented to time Results & Data ([facility]) Vital Signs (Past 12 Hours) Vital Signs Temp Pulse Resp BP Pulse Ox 10/01/21 08:05 36.8 C 84 20 109/69 98 10/01/21 03:28 36.8 C 93 H 20 117/67 96 09/30/21 23:21 36.6 C 92 H 20 105/58 L 97 Laboratory Results 09/30/21 06:06 10/01/21 08:45
[2021-10-01] MEDS: INSULIN ASPART PER UNIT SC SCH ×4 (08:28→21:38)
[2021-10-01 09:42] LABS: BUN Creatinine Ratio 19.5 (10-20); Calcium 9.1 mg/dl (8.5-10.1); Creatinine Clr Calc Pharmacy 41.2 ml/min; Est GFR (African American) 36.2 ml/min; Est GFR (Non-African American) 31.2 ml/min; Potassium 4.1 mmol/L (3.5-5.1)
[2021-10-01] MEDS: traMADol HCL 50 MG TABLET PO PRN (09:47)
[2021-10-01] MEDS: ACETAMINOPHEN 325 MG TAB PO SCH ×3 (12:24→22:18)
--- NOTE | 2021-10-01 14:27 | Hospitalist Progress Note ---
Date of Service October 01, 2021 Assessment & Plan (1) Periprosthetic fracture around internal prosthetic left knee joint: Plan: per Dr. Moreau's notes with addendum: This is a 76yo F with a PMH of DM II, asthma, severe sleep apnea on 3L NC HS, combined systolic and diastolic heart failure, h/o complete heart block s/p pacemaker placement, LBBB, PVD, CKD III, dyslipidemia, morbid obesity and other medical problems as below who presents from home after fall. Tibia/fibula XR with fracture of the proximal tibia at the distal aspect of the tibial component of the knee arthroplasty. There is associated soft tissue swelling Left hip x-ray showed no evidence of acute osseous injury. Ortho on board Recommended conservative management and hinged knee brace with nonweightbearing If the bracing would fail for any reason, the patient may require ORIF versus a revision tibial component to be placed. If surgery required, patient will need to be transferred to tertiary care facility to get it done Continue nonoperative management as per Ortho Orthotic consult placed by Ortho to measure for the brace Hinged knee brace to be on at all times. May loosen for bathing. No ROM of knee at this time. PT OT eval. NWB LLE with brace. Continue pain control plan to go to rehab Right knee pain Consider to get an x-ray of the R knee if pain worsening Continue pain control Clinically improved 10/01/21 l knee pain about the same reports R foot pain- Xrays ordered: pending 1. No acute fracture or dislocation within the right ankle. 2. Small lucency at the medial base the right fourth toe proximal phalanx consistent with an age-indeterminate fracture. 3. There is also well-corticated ossific density along the medial base of the left second toe proximal phalanx. 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 continue brace to the l knee joint Lidoderm patch, Ice to R foot transition to Rehab when medically stable (2) UTI (urinary tract infection): (3) Leukocytosis: Plan: WBC 17. Afebrile, lactate 2.2 on admission Patient was started on cefepime IV then antibiotic changed to Zosyn and Vanco Vanco discontinued today since urine culture grew gram-negative bacilli Urine culture grew E. coli pansensitive WBC normalized at 6.4 IV Zosyn discontinued and transition to p.o. amoxicillin Completed the course of Amoxicillin 10/01/21 completed Zosyn and Amoxicillin course no urinary symptoms (4) Uncontrolled type II diabetes mellitus: Plan: Most recent hemoglobin A1c 15.5 on 09/23/2021 Currently on Lantus and insulin sliding scale during the hospital course Home regimen includes Lantus 68 unit BID, 10 unit TIDM [facility] on board for glycemic management Continue monitor blood sugar 10/01/21 BSG 126 to 176 (5) Hyperkalemia: Plan: Potassium on admission 5.2 Continue to hold Losartan Potassium 4.5 today Continue monitor BMP 09/30/21 resolved (6) Combined congestive systolic and diastolic heart failure: Plan: (+) volume overload remains on 2 L CXR: CHF pattern Lasix 40mg IV given (+) rales, dyspnea--> improving Lasix 20mg IV BID PO Lasix on hold now crea 1.5 Nephro on board- appreciate the recommendations (7) CKD (chronic kidney disease), stage III: Plan: ELOY on CKD stage III Creatinine on admission worsening to 3.08, creatinine (baseline 1.6-1.8). Creatinine improves from 2.76 to 2.09--> 1.55-->1.49 Continue to hold losartan Nephrology on board Renal ultrasound showed no obstruction or hydronephrosis case discussed with nephrology that suggested to only restart either losartan OR lasix, but not both Continue monitor BMP daily 10/01/21 crea 1.5 ( baseline) Losartan on hold Lasix per above (8) HTN (hypertension): Plan: Continue carvedilol, holding losartan as discussed above Stable (9) Asthma: Plan: Continue home inhalers, supplemental O2 HS (10) Complete heart block: Plan: S/p pacemaker placement. ECG with atrial-paced rhythm (11) Dyslipidemia: Plan: Continue statin (12) PVD (peripheral vascular disease): Plan: Continue aspirin, plavix (13) Morbid obesity due to excess calories: Plan: PT OT/eval DVT Ppx: on heparin subcu Code status: FULL Dispo: Continue monitor closely transition to [facility] when medically stable Admission and Anticipated Discharge Date Admission Date: September 22, 2021 Subjective ff up for L knee fracture, acute on chronic CHF exacerbation, etc seen resting in bed, comfortable on 3 L oxygen via nC states she feels improved today no dyspnea, cough, chest pain still has some L knee and R foot pain no other symptoms Review of Systems Review of Systems: all noted and negative except for above Physical Exam Physical Exam: General- oriented x 2, not in distress, speaks in sentences with no effort or accessory muscle use Eyes- anicteric Neck- no JVD Lungs- clear breath sounds bilaterally, no rales/wheezes Heart- normal rate, regular rhythm; no murmurs Abdomen- normal bowel sounds, nondistended, soft, nontender Extremities- L knee: mild edema, no warmth, (+) mild tenderness, brace in place R foot: mild tenderness, no edema/warmth no pretibial edema, no calf tenderness Neuro- alert, oriented x 2; no gross focal neurologic deficits Skin- warm & dry Results & Data [facility] & [facility]) Vital Signs (Past 12 Hours) Vital Signs Temp Pulse Resp BP Pulse Ox 10/01/21 11:42 36.8 C 84 20 107/66 93 10/01/21 08:05 36.8 C 84 20 109/69 98 10/01/21 03:28 36.8 C 93 H 20 117/67 96 all noted and reviewed including below
[2021-10-01] MEDS: LIDOCAINE 5% 1 PATCH TD SCH (15:54)
[2021-10-01] MEDS: INSULIN GLARGINE SOLOSTAR 100 UNITS/ML 3 ML PEN SC SCH (21:34)
[2021-10-02] MEDS: traMADol HCL 50 MG TABLET PO PRN ×4 (02:00→22:29)
[2021-10-02] MEDS: ACETAMINOPHEN 325 MG TAB PO SCH ×4 (05:38→23:56)
[2021-10-02] MEDS: HEPARIN SOD 5,000 UNIT/0.5 ML VIAL SQ SCH ×3 (05:39→20:21)
[2021-10-02 06:58] LABS: BUN Creatinine Ratio 20.1 (10-20); Calcium 9.1 mg/dl (8.5-10.1); Est GFR (African American) 34.8 ml/min; Est GFR (Non-African American) 30.1 ml/min; Potassium 4.2 mmol/L (3.5-5.1)
[2021-10-02] MEDS: FUROSEMIDE INJ 20 MG/2 ML VIAL IV SCH ×4 (08:09→20:20)
[2021-10-02] MEDS: DICLOFENAC SOD 1% GEL 100 GM TUBE EXT SCH ×4 (08:09→20:19)
[2021-10-02] MEDS: CEROVITE ADV FORMULA TAB PO SCH (08:10)
[2021-10-02] MEDS: LIDOCAINE 5% 1 PATCH TD SCH (08:10)
[2021-10-02] MEDS: MONTELUKAST SODIUM 10 MG TABLET PO SCH (08:10)
[2021-10-02] MEDS: ROSUVASTATIN CALCIUM 20 MG TAB PO SCH (08:11)
[2021-10-02] MEDS: CLOPIDOGREL BISULFATE 75 MG TAB PO SCH (08:11)
[2021-10-02] MEDS: CYANOCOBALAMIN (B-12) 100 MCG TABLET PO SCH (08:11)
[2021-10-02] MEDS: BUDESONIDE AQ (RHINOCORT AQ) NASAL SPRAY 32 MCG NAE SCH (08:12)
[2021-10-02] MEDS: ASPIRIN 81 MG ECTAB PO SCH (08:12)
[2021-10-02] MEDS: TRIAMCINOLONE ACET 0.025% CR 15 GM TUBE TOP SCH ×2 (08:17→20:21)
[2021-10-02] MEDS: INSULIN ASPART PER UNIT SC SCH ×4 (08:23→20:24)
[2021-10-02] MEDS: UMECLIDINIUM BROMIDE 62.5MCG/BLISTER 7 PUFFS/INHALER INH SCH (09:43)
--- NOTE | 2021-10-02 09:44 | Nephrology Progress Note ---
Date of Service October 02, 2021 Assessment & Plan (1) CKD (chronic kidney disease): Plan: Though we have few OP data of her baseline renal function > would approximate it at 1.6-1.7, CKD 3B or even early CKD 4. Renal function remains at/near baseline w/ serum creatinine at 1.6 past 48 hrs, urine output acceptable as well. still hypoxic and w/mild vol OL on exam. She had stage 2 ELOY on CKD from [facility] earlier this admission, peak creatinine 3.1. -intensify diuretics as below -cont 1.5L FR and <2 gm daily Na diet in addition to other -cont to hold losartan -Avoid nephrotoxic medication -BMP q. 24hr -will need nephro follow up after discharge-weekly bmp to be ordered by renal nurse x 3 and f/u [facility] any neph doc 2-4 wks after d/c; pls d/w nephro at d/c dispo re resuming losartan and diuretic dosing -will follow peripherally (2) Volume excess: Plan: -now that she has a webster and since renal function stable, will intensify diuresis to 20 mg IV lasix q6h and give K 20 mEq bid; so ordered; if webster removed lasix dosing 0600, noon, 1800 -daily bmp, strict I/O -recommend recheck CXR on 10/05 Admission and Anticipated Discharge Date Admission Date: September 22, 2021 Subjective states PT told her she needs BL knee XR; ongoign BL knee pain; no sob; got webster ON Review of Systems Review of Systems: All systems reviewed & are unremarkable except as noted in Subjective Physical Exam Constitutional: well developed, well nourished, + obese and + frail appearing; no acute distress Eyes: EOM intact bilaterally ENMT: Ears: no external ear abnormality Nose: no external nose abnormality Mouth: + dry oral mucous membranes Neck: no nuchal rigidity Respiratory: normal respiratory effort Auscultation: + diminished lung sounds and + crackles (bibasilar) Cardiovascular: Rate/Rhythm: regular rate and regular rhythm Extremities: + edema (trace) Gastrointestinal (Abdomen): Inspection/Auscultation: normal bowel sounds Percussion/Palpation: abdomen soft; abdomen nontender Musculoskeletal: Extremities: + abnormal strength and + lower extremity abnormal to inspection (braced) Skin: no rashes, warm and dry Psychiatric: Orientation: alert and oriented to person; + not oriented to place and + not oriented to time Genitourinary: webster w/ ample yellow urine Results & Data ([facility]) Vital Signs (Past 12 Hours) Vital Signs Temp Pulse Pulse Resp BP Pulse Ox 10/02/21 08:06 36.7 C 85 20 113/67 94 10/02/21 07:34 88 10/02/21 02:38 36.7 C 88 19 137/63 96 10/01/21 23:11 36.7 C 87 21 131/71 97 Laboratory Results 09/30/21 06:06 10/02/21 06:00 (1) CKD (chronic kidney disease) Chronic kidney disease stage: unspecified stage Qualified Code(s): N18.9 - C hronic kidney disease, unspecified
--- NOTE | 2021-10-02 10:30 | Pharmacy Report ---
Pharmacy Glycemic Short Note 2 - Date of Service October 02, 2021 - Glycemic Short BSG Results (Last 24 hours): 10/01/21 10/01/21 10/01/21 11:31 16:08 20:08 Glucose POC Glucose 172 H 120 H 166 H 10/02/21 10/02/21 06:00 07:42 Glucose 99 POC Glucose 109 H OUTPATIENT ANTIDIABETIC REGIMEN: * Lantus 68 units SC BID * NovoLog 10 units SC TID * Trulicity 3 mg SC once weekly * HbA1c = 13.5% (09/23/21) ASSESSMENT: 10/02/21: * Ms Lamar has been stable on current regimen for the past several days. * No changes indicated at this time. 09/30: * No changes in stressors. Received 70 units of insulin yesterday (50 Lantus + 20 Novolog). BSGs were controlled: [phone] mg/dL. * Fasting BSG controlled at 137 mg/dL this AM. * No changes necessary in insulin regimen today. 09/28: * Received 61 units of insulin yesterday (50 units Lantus + 11 units Novolog). BSGs were acceptable: 181-299-355-179 mg/dL * Fasting BSG of 138 mg/dL this AM is at goal. No change in insulin regimen necessary today. PLAN FOR INPATIENT GLYCEMIC CONTROL: * Hold outpatient Trulicity * Basal insulin - no change * Lantus 50 units SC HS * Bolus insulin - no change * NovoLog per scale ACHS or Q6hrs while NPO * Goal Range: Low 110 mg/dL - High 140 mg/dL * Correction Factor: 12 mg/dL/unit * Nutritional / Prandial insulin per carb ratio of 1 unit per 4 grams CHO consumed PLAN FOR DISCHARGE: * HbA1c of 13.5% is well above goal of less than 8% for this patient. Recommend referral to second helper or MTM clinic for help with managing T2DM. * As long as PO intake / appetite improves, would recommend the following: * Reduce Lantus to 50 units SC BID - this is a 25% reduction in home dose -- pt has only been requiring 50 units daily during admission. If she plans to continue a similar diet after discharge, her Lantus may require additional reduction. * Increase Novolog to 20 units SC w/ breakfast, 10 units SC with lunch and 10 units SC with dinner. * Contact provider if BSGs consistently above 200 mg/dL or below 90 mg/dL.
[2021-10-02] MEDS: POTASSIUM CHLORIDE CRTAB 20 MEQ TABCR PO SCH ×2 (11:20→16:41)
--- NOTE | 2021-10-02 12:03 | Hospitalist Progress Note ---
Date of Service October 02, 2021 Assessment & Plan (1) Periprosthetic fracture around internal prosthetic left knee joint: Plan: per Dr. Moreau's notes with addendum: This is a 76yo F with a PMH of DM II, asthma, severe sleep apnea on 3L NC HS, combined systolic and diastolic heart failure, h/o complete heart block s/p pacemaker placement, LBBB, PVD, CKD III, dyslipidemia, morbid obesity and other medical problems as below who presents from home after fall. Tibia/fibula XR with fracture of the proximal tibia at the distal aspect of the tibial component of the knee arthroplasty. There is associated soft tissue swelling Left hip x-ray showed no evidence of acute osseous injury. Ortho on board Recommended conservative management and hinged knee brace with nonweightbearing If the bracing would fail for any reason, the patient may require ORIF versus a revision tibial component to be placed. If surgery required, patient will need to be transferred to tertiary care facility to get it done Continue nonoperative management as per Ortho Orthotic consult placed by Ortho to measure for the brace Hinged knee brace to be on at all times. May loosen for bathing. No ROM of knee at this time. PT OT eval. NWB LLE with brace. Continue pain control plan to go to rehab Right knee pain Consider to get an x-ray of the R knee if pain worsening Continue pain control Clinically improved 10/02/21 l knee pain about the same reports R foot pain; right foot x-ray: 1. No acute fracture or dislocation within the right ankle. 2. Small lucency at the medial base the right fourth toe proximal phalanx consistent with an age-indeterminate fracture. 3. There is also well-corticated ossific density along the medial base of the left second toe proximal phalanx. 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 continue brace to the l knee joint Lidoderm patch, Ice to R foot transition to Rehab when medically stable (2) UTI (urinary tract infection): (3) Leukocytosis: Plan: WBC 17. Afebrile, lactate 2.2 on admission Patient was started on cefepime IV then antibiotic changed to Zosyn and Vanco Vanco discontinued today since urine culture grew gram-negative bacilli Urine culture grew E. coli pansensitive WBC normalized at 6.4 IV Zosyn discontinued and transition to p.o. amoxicillin Completed the course of Amoxicillin 10/02/21 completed Zosyn and Amoxicillin course no urinary symptoms (4) Uncontrolled type II diabetes mellitus: Plan: Most recent hemoglobin A1c 15.5 on 09/23/2021 Currently on Lantus and insulin sliding scale during the hospital course Home regimen includes Lantus 68 unit BID, 10 unit TIDM [facility] on board for glycemic management Continue monitor blood sugar 10/02/21 BSG 109 to 187 (5) Hyperkalemia: Plan: Potassium on admission 5.2 Continue to hold Losartan Potassium 4.5 today Continue monitor BMP resolved (6) Combined congestive systolic and diastolic heart failure: Plan: (+) volume overload remains on 2 L CXR: CHF pattern Lasix 40mg IV given (+) rales, dyspnea--> improving Lasix 20mg IV 4 times daily PO Lasix on hold now crea 1.6 Nephro on board titrating the Lasix appreciate the recommendations (7) CKD (chronic kidney disease), stage III: Plan: ELOY on CKD stage III Creatinine on admission worsening to 3.08, creatinine (baseline 1.6-1.8). Creatinine improves from 2.76 to 2.09--> 1.55-->1.49 Continue to hold losartan Nephrology on board Renal ultrasound showed no obstruction or hydronephrosis case discussed with nephrology that suggested to only restart either losartan OR lasix, but not both Continue monitor BMP daily 10/02/21 crea 1.6( baseline) Losartan on hold Lasix per above (8) HTN (hypertension): Plan: Continue carvedilol, holding losartan as discussed above Stable (9) Asthma: Plan: Continue home inhalers, supplemental O2 HS (10) Complete heart block: Plan: S/p pacemaker placement. ECG with atrial-paced rhythm (11) Dyslipidemia: Plan: Continue statin (12) PVD (peripheral vascular disease): Plan: Continue aspirin, plavix (13) Morbid obesity due to excess calories: Plan: PT OT/eval: Recommend [facility] DVT Ppx: on heparin subcu Code status: FULL Dispo: Continue monitor closely transition to [facility] when medically stable plan of care discussed with patient in detail and at length all questions answered she is understanding, agreeable, comfortable with the plan of care Admission and Anticipated Discharge Date Admission Date: September 22, 2021 Subjective Follow-up for left knee fracture, CHF exacerbation, etc. Seen resting in bed, comfortable, not in distress Sitting up, on 2 L of oxygen States she feels improving overall Breathing is better No chest pain, palpitation Left knee pain is about the same No other symptoms Review of Systems Review of Systems: all noted and negative except for above Physical Exam Physical Exam: General- oriented x 3, not in distress, speaks in sentences with no effort or accessory muscle use Eyes- anicteric Neck- no JVD Lungs-mild rales bilaterally No wheezing Good air entry bilaterally Heart- normal rate, regular rhythm; no murmurs Abdomen- normal bowel sounds, nondistended, soft, nontender Extremities-left knee: Mild edema, no warmth, mild tenderness Right foot, no edema, no warmth, mild tenderness Neuro- alert, oriented x 3; no gross focal neurologic deficits Skin- warm & dry Results & Data Results & Data ([facility]) Vital Signs (Past 12 Hours) Vital Signs Temp Pulse Pulse Resp BP BP Pulse Ox 10/02/21 11:15 36.7 C 91 H 19 136/81 95 10/02/21 08:06 36.7 C 85 20 113/67 94 10/02/21 07:34 88 10/02/21 02:38 36.7 C 88 19 137/63 96 all noted and reviewed including below
[2021-10-02] MEDS: SODIUM CHLORIDE 0.65% NA SOLN 45 ML (OCEAN) SCH ×3 (16:30→20:39)
[2021-10-02] MEDS: INSULIN GLARGINE SOLOSTAR 100 UNITS/ML 3 ML PEN SC SCH (20:24)
[2021-10-03] MEDS: SODIUM CHLORIDE 0.65% NA SOLN 45 ML (OCEAN) SCH ×6 (02:01→20:19)
[2021-10-03] MEDS: traMADol HCL 50 MG TABLET PO PRN ×2 (04:30→17:35)
[2021-10-03] MEDS: ACETAMINOPHEN 325 MG TAB PO SCH ×3 (05:57→16:53)
[2021-10-03] MEDS: HEPARIN SOD 5,000 UNIT/0.5 ML VIAL SQ SCH ×3 (05:57→20:10)
[2021-10-03] MEDS: LORATADINE 10 MG TAB PO PRN (07:58)
[2021-10-03] MEDS: MONTELUKAST SODIUM 10 MG TABLET PO SCH (07:59)
[2021-10-03] MEDS: CYANOCOBALAMIN (B-12) 100 MCG TABLET PO SCH (07:59)
[2021-10-03] MEDS: ASPIRIN 81 MG ECTAB PO SCH (07:59)
[2021-10-03] MEDS: CLOPIDOGREL BISULFATE 75 MG TAB PO SCH (07:59)
[2021-10-03] MEDS: POTASSIUM CHLORIDE CRTAB 20 MEQ TABCR PO SCH ×2 (07:59→16:53)
[2021-10-03] MEDS: ROSUVASTATIN CALCIUM 20 MG TAB PO SCH (07:59)
[2021-10-03] MEDS: LIDOCAINE 5% 1 PATCH TD SCH (08:00)
[2021-10-03] MEDS: CEROVITE ADV FORMULA TAB PO SCH (08:00)
[2021-10-03] MEDS: FUROSEMIDE INJ 20 MG/2 ML VIAL IV SCH ×3 (08:00→20:12)
[2021-10-03] MEDS: UMECLIDINIUM BROMIDE 62.5MCG/BLISTER 7 PUFFS/INHALER INH SCH (08:01)
[2021-10-03] MEDS: DICLOFENAC SOD 1% GEL 100 GM TUBE EXT SCH ×4 (08:01→20:10)
[2021-10-03] MEDS: BUDESONIDE AQ (RHINOCORT AQ) NASAL SPRAY 32 MCG NAE SCH (08:01)
[2021-10-03] MEDS: TRIAMCINOLONE ACET 0.025% CR 15 GM TUBE TOP SCH ×2 (08:02→20:11)
[2021-10-03] MEDS: INSULIN ASPART PER UNIT SC SCH ×4 (08:11→20:14)
[2021-10-03 09:04] LABS: BUN Creatinine Ratio 19.9 (10-20); Calcium 9.6 mg/dl (8.5-10.1); Creatinine Clr Calc Pharmacy 39.1 ml/min; Est GFR (African American) 34.3 ml/min; Est GFR (Non-African American) 29.6 ml/min; Potassium 4.5 mmol/L (3.5-5.1)
--- NOTE | 2021-10-03 10:15 | Nephrology Progress Note ---
Date of Service October 03, 2021 Assessment & Plan (1) CKD (chronic kidney disease): Plan: Though we have few OP data of her baseline renal function > would approximate it at 1.6-1.7, CKD 3B or even early CKD 4. Renal function remains at/near baseline w/ serum creatinine at 1.6 past 48 hrs, urine output acceptable as well. still hypoxic and w/mild vol OL on exam. She had stage 2 ELOY on CKD from [facility] earlier this admission, peak creatinine 3.1. -UOP has improved after increasing the lasix, continue on the 20 mg q6 dose for 1 more day, Can convert to Bid from tmrw. -cont 1.5L FR and <2 gm daily Na diet in addition to other -cont to hold losartan -Avoid nephrotoxic medication -BMP q. 24hr -will need nephro follow up after discharge-weekly bmp to be ordered by renal nurse x 3 and f/u [facility] any neph doc 2-4 wks after d/c; pls d/w nephro at d/c dispo re resuming losartan and diuretic dosing -will follow peripherally (2) Volume excess: Plan: -now that she has a webster and since renal function stable, continue on 20 mg IV lasix q6h , 1 more day, Can convert to Bid from tmrw. -cont 1.5L FR and <2 gm daily Na diet .and give K 20 mEq bid -daily bmp, strict I/O Admission and Anticipated Discharge Date Admission Date: September 22, 2021 Subjective Comfortable, on 2l oxygen, Making good urine Review of Systems Review of Systems: Other bilateral pedal edema Comfortable on 2l oxygen Physical Exam Physical Exam: PHYSICAL EXAMINATION: GENERAL: Awake, alert, oriented x 3, normal speech, no respiratory distress. CHEST: Bilaterally clear to auscultation. CARDIOVASCULAR: S1 and S2, regular. ABDOMEN: Soft, nontender, obese. EXTREMITIES: Shows trace to 1+ edema Results & Data ([facility]) Vital Signs (Past 12 Hours) Vital Signs Temp Pulse Pulse Resp BP Pulse Ox 10/03/21 07:35 36.9 C 82 21 128/76 95 10/03/21 04:18 36.6 C 88 18 131/83 96 10/02/21 22:54 36.9 C 83 18 126/70 96 10/02/21 22:26 82 Laboratory Results 09/30/21 06:06 10/03/21 08:21 (1) CKD (chronic kidney disease) Chronic kidney disease stage: unspecified stage Qualified Code(s): N18.9 - Chronic kidney disease, unspecified
--- NOTE | 2021-10-03 11:41 | Pharmacy Report ---
Pharmacy Glycemic Short Note 2 - Date of Service October 03, 2021 - Glycemic Short BSG Results (Last 24 hours): 10/02/21 10/02/21 10/03/21 16:38 20:08 07:33 Glucose POC Glucose 162 H 139 H 84 10/03/21 10/03/21 08:21 11:29 Glucose 100 H POC Glucose 94 OUTPATIENT ANTIDIABETIC REGIMEN: * Lantus 68 units SC BID * NovoLog 10 units SC TID * Trulicity 3 mg SC once weekly * HbA1c = 13.5% (09/23/21) ASSESSMENT: 10/03 * BSGs reasonably well-controlled yesterday, ranging 109-187 mg/dL * BSGs trending lower than usual today with fasting BSG of 84 mg/dL this morning * Will decrease Lantus dose today and slightly loosen Novolog carb coverage 10/02 * Ms Lamar has been stable on current regimen for the past several days. * No changes indicated at this time. 09/30: * No changes in stressors. Received 70 units of insulin yesterday (50 Lantus + 20 Novolog). BSGs were controlled: [phone] mg/dL. * Fasting BSG controlled at 137 mg/dL this AM. * No changes necessary in insulin regimen today. 09/28: * Received 61 units of insulin yesterday (50 units Lantus + 11 units Novolog). BSGs were acceptable: [phone] mg/dL * Fasting BSG of 138 mg/dL this AM is at goal. No change in insulin regimen necessary today. PLAN FOR INPATIENT GLYCEMIC CONTROL: * Hold outpatient Trulicity * Basal insulin - decrease * Lantus 30-40 units SC HS (see EHR for details) * Bolus insulin - loosen carb coverage * NovoLog per scale ACHS or Q6hrs while NPO * Goal Range: Low 110 mg/dL - High 140 mg/dL * Correction Factor: 12 mg/dL/unit * Nutritional / Prandial insulin per carb ratio of 1 unit per 5 grams CHO consumed PLAN FOR DISCHARGE: * HbA1c of 13.5% is well above goal of less than 8% for this patient. Recommend referral to [facility] or MTM clinic for help with managing T2DM. * Reported outpatient insulin doses are significantly higher than inpatient needs would suggest * As long as PO intake / appetite improves, would recommend the following: * Reduce Lantus to 40 units SC BID - this is a 40% reduction in home dose * ---Pt has only been requiring 50 units daily during admission. If she plans to continue a similar diet after discharge, her Lantus may require additional reduction. * Increase Novolog to 20 units SC w/ breakfast, 10 units SC with lunch and 10 units SC with dinner. * Contact provider if BSGs consistently above 200 mg/dL or below 90 mg/dL.
--- NOTE | 2021-10-03 12:19 | Hospitalist Progress Note ---
Date of Service October 03, 2021 Assessment & Plan (1) Periprosthetic fracture around internal prosthetic left knee joint: Plan: per Dr. Moreau's notes with addendum: This is a 76yo F with a PMH of DM II, asthma, severe sleep apnea on 3L NC HS, combined systolic and diastolic heart failure, h/o complete heart block s/p pacemaker placement, LBBB, PVD, CKD III, dyslipidemia, morbid obesity and other medical problems as below who presents from home after fall. Tibia/fibula XR with fracture of the proximal tibia at the distal aspect of the tibial component of the knee arthroplasty. There is associated soft tissue swelling Left hip x-ray showed no evidence of acute osseous injury. Ortho on board Recommended conservative management and hinged knee brace with nonweightbearing If the bracing would fail for any reason, the patient may require ORIF versus a revision tibial component to be placed. If surgery required, patient will need to be transferred to tertiary care facility to get it done Continue nonoperative management as per Ortho Orthotic consult placed by Ortho to measure for the brace Hinged knee brace to be on at all times. May loosen for bathing. No ROM of knee at this time. PT OT eval. NWB LLE with brace. Continue pain control plan to go to rehab Right knee pain Consider to get an x-ray of the R knee if pain worsening Continue pain control Clinically improved 10/03/21 l knee pain about the same reports R foot pain; right foot x-ray: 1. No acute fracture or dislocation within the right ankle. 2. Small lucency at the medial base the right fourth toe proximal phalanx consistent with an age-indeterminate fracture. 3. There is also well-corticated ossific density along the medial base of the left second toe proximal phalanx. 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 continue brace to the l knee joint Lidoderm patch, Ice to R foot transition to Rehab when medically stable (2) UTI (urinary tract infection): (3) Leukocytosis: Plan: WBC 17. Afebrile, lactate 2.2 on admission Patient was started on cefepime IV then antibiotic changed to Zosyn and Vanco Vanco discontinued today since urine culture grew gram-negative bacilli Urine culture grew E. coli pansensitive WBC normalized at 6.4 IV Zosyn discontinued and transition to p.o. amoxicillin Completed the course of Amoxicillin 10/03/21 completed Zosyn and Amoxicillin course no urinary symptoms (4) Uncontrolled type II diabetes mellitus: Plan: Most recent hemoglobin A1c 15.5 on 09/23/2021 Currently on Lantus and insulin sliding scale during the hospital course Home regimen includes Lantus 68 unit BID, 10 unit TIDM [facility] on board for glycemic management Continue monitor blood sugar 10/03/21 BSG 84 to 94 (5) Hyperkalemia: Plan: Potassium on admission 5.2 Continue to hold Losartan Potassium 4.5 today Continue monitor BMP resolved (6) Combined congestive systolic and diastolic heart failure: Plan: (+) volume overload remains on 2 L CXR: CHF pattern Lasix 40mg IV given (+) rales, dyspnea--> improving Lasix 20mg IV BID today PO Lasix on hold now crea 1.6 Nephro on board titrating the Lasix appreciate the recommendations (7) CKD (chronic kidney disease), stage III: Plan: ELOY on CKD stage III Creatinine on admission worsening to 3.08, creatinine (baseline 1.6-1.8). Creatinine improves from 2.76 to 2.09--> 1.55-->1.49 Continue to hold losartan Nephrology on board Renal ultrasound showed no obstruction or hydronephrosis case discussed with nephrology that suggested to only restart either losartan OR lasix, but not both Continue monitor BMP daily 10/03/21 crea 1.6( baseline) Losartan on hold Lasix per above (8) HTN (hypertension): Plan: Continue carvedilol, holding losartan as discussed above Stable (9) Asthma: Plan: Continue home inhalers, supplemental O2 HS (10) Complete heart block: Plan: S/p pacemaker placement. ECG with atrial-paced rhythm (11) Dyslipidemia: Plan: Continue statin (12) PVD (peripheral vascular disease): Plan: Continue aspirin, plavix (13) Morbid obesity due to excess calories: Plan: PT OT/eval: Recommend [facility] DVT Ppx: on heparin subcu Code status: FULL Dispo: Continue monitor closely transition to [facility] when medically stable plan of care discussed with patient in detail and at length all questions answered she is understanding, agreeable, comfortable with the plan of care Admission and Anticipated Discharge Date Admission Date: September 22, 2021 Subjective Follow-up for acute CHF, left knee fracture, etc. Seen resting in bed, on 2 L of oxygen Comfortable, not in distress In good spirits Had dyspnea earlier this morning when her nasal cannula was accidentally removed That has resolved No chest pain, palpitations, dizziness, nausea Left knee pain about the same No other symptoms Review of Systems Review of Systems: all noted and negative except for above Physical Exam Physical Exam: General- oriented x 3, not in distress, speaks in sentences with no effort or accessory muscle use Eyes- anicteric Neck- no JVD Lungs-mild rales at the bases, no wheezing Heart- normal rate, regular rhythm; no murmurs Abdomen- normal bowel sounds, nondistended, soft, nontender Extremities-left knee: Mild edema and tenderness Right foot: Edema improving, tenderness improving Neuro- alert, oriented x 3; no gross focal neurologic deficits Skin- warm & dry Results & Data Results & Data ([facility]) Vital Signs (Past 12 Hours) Vital Signs Temp Pulse Pulse Resp BP BP Pulse Ox 10/03/21 11:32 36.3 C L 81 20 149/66 H 95 10/03/21 07:35 36.9 C 82 21 128/76 95 10/03/21 07:15 84 10/03/21 04:18 36.6 C 88 18 131/83 96 all noted and reviewed including below
[2021-10-03] MEDS ORDERED: INSULIN GLARGINE SOLOSTAR 100 UNITS/ML 3 ML PEN SC SCH (21:00)
[2021-10-04] MEDS: ACETAMINOPHEN 325 MG TAB PO SCH ×4 (00:19→18:16)
[2021-10-04] MEDS: SODIUM CHLORIDE 0.65% NA SOLN 45 ML (OCEAN) SCH ×6 (00:58→21:45)
[2021-10-04] MEDS: HEPARIN SOD 5,000 UNIT/0.5 ML VIAL SQ SCH ×3 (05:54→21:35)
[2021-10-04 06:44] LABS: BUN Creatinine Ratio 19.9 (10-20); Calcium 9.6 mg/dl (8.5-10.1); Creatinine Clr Calc Pharmacy 39.5 ml/min; Est GFR (African American) 35.6 ml/min; Est GFR (Non-African American) 30.7 ml/min
--- NOTE | 2021-10-04 08:35 | Pharmacy Report ---
Pharmacy Glycemic Short Note 2 - Date of Service October 04, 2021 - Glycemic Short BSG Results (Last 24 hours): 10/03/21 10/03/21 10/03/21 08:21 11:29 16:24 Glucose 100 H POC Glucose 94 103 H 10/03/21 10/04/21 10/04/21 20:10 05:50 07:29 Glucose 145 H POC Glucose 110 H 149 H OUTPATIENT ANTIDIABETIC REGIMEN: * Lantus 68 units SC BID * NovoLog 10 units SC TID * Trulicity 3 mg SC once weekly * HbA1c = 13.5% (09/23/21) ASSESSMENT: 10/04 * BSGs remain well-controlled, 84, 84, 103, and 110 mg/dL yesterday, fasting BSG of 149 mg/dL * Received 52 units of insulin (30 units of Lantus and 22 units of prandial/correctional bolus) * Will plan to switch back to BID Lantus to correlate with outpatient regimen * Will continue slightly loosened Novolog parameters from yesterday * No change to stressors 10/03 * BSGs reasonably well-controlled yesterday, ranging 109-187 mg/dL * BSGs trending lower than usual today with fasting BSG of 84 mg/dL this morning * Will decrease Lantus dose today and slightly loosen Novolog carb coverage 09/28: * Received 61 units of insulin yesterday (50 units Lantus + 11 units Novolog). BSGs were acceptable: [phone] mg/dL * Fasting BSG of 138 mg/dL this AM is at goal. No change in insulin regimen necessary today. PLAN FOR INPATIENT GLYCEMIC CONTROL: * Hold outpatient Trulicity * Basal insulin - change to BID * Lantus 20 units SC BID * Bolus insulin - continue * NovoLog per scale ACHS or Q6hrs while NPO * Goal Range: Low 110 mg/dL - High 140 mg/dL * Correction Factor: 12 mg/dL/unit * Nutritional / Prandial insulin per carb ratio of 1 unit per 5 grams CHO consumed PLAN FOR DISCHARGE: * HbA1c of 13.5% is well above goal of less than 8% for this patient. Recommend referral to [facility] or [facility] clinic for help with managing T2DM. * Reported outpatient insulin doses are significantly higher than inpatient needs would suggest * As long as PO intake / appetite improves, would recommend the following: * Reduce Lantus to 40 units SC BID - this is a 40% reduction in home dose * ---Pt has only been requiring 50 units daily during admission. If she plans to continue a similar diet after discharge, her Lantus may require additional reduction. * Increase Novolog to 20 units SC w/ breakfast, 10 units SC with lunch and 10 units SC with dinner. * Contact provider if BSGs consistently above 200 mg/dL or below 90 mg/dL.
[2021-10-04] MEDS: TRIAMCINOLONE ACET 0.025% CR 15 GM TUBE TOP SCH ×2 (08:51→21:34)
[2021-10-04] MEDS: UMECLIDINIUM BROMIDE 62.5MCG/BLISTER 7 PUFFS/INHALER INH SCH (08:51)
[2021-10-04] MEDS: BUDESONIDE AQ (RHINOCORT AQ) NASAL SPRAY 32 MCG NAE SCH (08:51)
[2021-10-04] MEDS: LORATADINE 10 MG TAB PO PRN (08:52)
[2021-10-04] MEDS: ROSUVASTATIN CALCIUM 20 MG TAB PO SCH (08:52)
[2021-10-04] MEDS: ASPIRIN 81 MG ECTAB PO SCH (08:52)
[2021-10-04] MEDS: FUROSEMIDE INJ 20 MG/2 ML VIAL IV SCH (08:52)
[2021-10-04] MEDS: CLOPIDOGREL BISULFATE 75 MG TAB PO SCH (08:53)
[2021-10-04] MEDS: POTASSIUM CHLORIDE CRTAB 20 MEQ TABCR PO SCH ×2 (08:53→18:17)
[2021-10-04] MEDS: MONTELUKAST SODIUM 10 MG TABLET PO SCH (08:53)
[2021-10-04] MEDS: CYANOCOBALAMIN (B-12) 100 MCG TABLET PO SCH (08:53)
[2021-10-04] MEDS: CEROVITE ADV FORMULA TAB PO SCH (08:54)
[2021-10-04] MEDS: LIDOCAINE 5% 1 PATCH TD SCH ×2 (08:54→09:50)
[2021-10-04] MEDS: DICLOFENAC SOD 1% GEL 100 GM TUBE EXT SCH ×4 (08:54→21:33)
[2021-10-04] MEDS: INSULIN GLARGINE SOLOSTAR 100 UNITS/ML 3 ML PEN SC SCH ×2 (09:12→21:33)
[2021-10-04] MEDS: INSULIN ASPART PER UNIT SC SCH ×4 (09:12→21:36)
[2021-10-04] MEDS: traMADol HCL 50 MG TABLET PO PRN ×2 (09:12→13:01)
--- NOTE | 2021-10-04 10:36 | Nephrology Progress Note ---
Date of Service October 04, 2021 Assessment & Plan (1) CKD (chronic kidney disease): Plan: Though we have few OP data of her baseline renal function > would approximate it at 1.6-1.7, CKD 3B or even early CKD 4. Renal function remains at/near baseline w/ serum creatinine at 1.6 past 48 hrs, urine output acceptable as well. still hypoxic and w/mild vol OL on exam. She had stage 2 ELOY on CKD from [facility] earlier this admission, peak creatinine 3.1. -UOP has improved after increasing the lasix, however she is more alkalotic now and renal function has Plateaued- convert to TOrsemide 40 mg BID from today. -cont 1.5L FR and <2 gm daily Na diet in addition to other -cont to hold losartan -Avoid nephrotoxic medication -BMP q. 24hr -will need nephro follow up after discharge-weekly bmp to be ordered by renal nurse x 3 and f/u [facility] any neph doc 2-4 wks after d/c; pls d/w nephro at d/c dispo re resuming losartan and diuretic dosing -will follow peripherally (2) Volume excess: Plan: -now that she has a webster and since renal function stable, continue on 20 mg IV lasix q6h , 1 more day, Can convert to Bid from tmrw. -cont 1.5L FR and <2 gm daily Na diet .and give K 20 mEq bid -daily bmp, strict I/O Admission and Anticipated Discharge Date Admission Date: September 22, 2021 Subjective Follow-up for acute CHF, left knee fracture, etc. Seen resting in bed, on 1 L of oxygen Comfortable, not in distress No chest pain, palpitations, dizziness, nausea Left knee pain about the same No other symptoms Review of Systems Review of Systems: bilateral pedal edema Comfortable on 1l oxygen Physical Exam Physical Exam: PHYSICAL EXAMINATION: GENERAL: Awake, alert, oriented x 3, normal speech, no respiratory distress. CHEST: Bilaterally clear to auscultation. CARDIOVASCULAR: S1 and S2, regular. ABDOMEN: Soft, nontender, obese. EXTREMITIES: Shows trace to 1+ edema Results & Data ([facility]) Vital Signs (Past 12 Hours) Vital Signs Temp Pulse Resp BP Pulse Ox Pulse Ox 10/04/21 07:25 36.8 C 85 134/70 92 10/04/21 02:37 36.7 C 91 H 20 121/68 93 10/03/21 23:18 36.8 C 87 18 115/55 L 96 96 Laboratory Results 09/30/21 06:06 10/04/21 05:50 (1) CKD (chronic kidney disease) Chronic kidney disease stage: unspecified stage Qualified Code(s): N18.9 - Chronic kidney disease, unspecified
--- NOTE | 2021-10-04 10:42 | XRay Report ---
XR chest 1V portable CLINICAL HISTORY: ff up chf. Shortness of breath COMPARISON STUDY: 09/30/2021 TECHNIQUE: 1 view of the chest FINDINGS: Single frontal view of the chest demonstrates the heart size to again be enlarged with permanent card iac pacer in place. Compared to previous study, there is a decreased inspiratory effort present with crowding the bronchovascular markings at the lung bases and centrally. The central pulmonary vascular markings are indistinct again suspicious for central vascular congestion. There is no evidence for p leural effusion. There is no evidence for alveolar opacity. There is no acute osseous pathology. IMPRESSION: Decreased inspiration with evidence for mild central vascular congestion again seen as de scribed. ACT 112: Negative or not required by law. Electronically signed by: Cesar Mcdowell M.D. 10/04/2021 10:41 AM
--- NOTE | 2021-10-04 10:48 | XRay Report ---
XR knee RT 1 or 2V routine CLINICAL HISTORY: pain, ff up fracture. COMPARISON STUDY: No previous studies for comparison. TECHNIQUE: 2 right knee views FINDINGS: Bones: There is no evidence for an acute fracture or dislocation. There is no lytic or blastic lesion . Joints: The patient is status post total knee replacement with resurfacing of the patella. The prosth etic components are in anatomic alignment. However, there is increased radiolucency at the metallic b one interface of the tibial component suspicious for the presence of loosening. There is also a moder ate size intra-articular effusion. The bones are in anatomic alignment. Soft tissues: There is no focal soft tissue abnormality. There is no radiopaque foreign body. IMPRESSION: No acute osseous pathology. However, there are radiographic findings suspicious for loose seble of the tibial component of the patient's total knee replacement with a moderate size intra-artic ular effusion. ACT 112: Negative or not required by law. Electronically signed by: Cesar Mcdowell M.D. 10/04/2021 10:47 AM
--- NOTE | 2021-10-04 10:52 | XRay Report ---
XR knee LT 1 or 2V routine CLINICAL HISTORY: Knee pain. Reevaluate fractures.. COMPARISON STUDY: 09/30/2021 TECHNIQUE: 2 left knee views FINDINGS: Compared to previous examination, the patient is again status post total knee replacement w ith an external fixator in place. Nondisplaced fracture of the lateral tibial plateau and comminuted fracture of the fibular head and neck are again seen. No new fractures are identified. Total knee rep lacement appears intact. IMPRESSION: Compared to the previous examination, nondisplaced fracture of the tibia and mildly displ aced comminuted fracture of the fibular head and neck are again seen. ACT 112: Negative or not required by law. Electronically signed by: Cesar Mcdowell M.D. 10/04/2021 10:50 AM
--- NOTE | 2021-10-04 14:06 | Hospitalist Progress Note ---
Date of Service October 04, 2021 Assessment & Plan (1) Periprosthetic fracture around internal prosthetic left knee joint: Plan: per Dr. Moreau's notes with addendum: This is a 76yo F with a PMH of DM II, asthma, severe sleep apnea on 3L NC HS, combined systolic and diastolic heart failure, h/o complete heart block s/p pacemaker placement, LBBB, PVD, CKD III, dyslipidemia, morbid obesity and other medical problems as below who presents from home after fall. Tibia/fibula XR with fracture of the proximal tibia at the distal aspect of the tibial component of the knee arthroplasty. There is associated soft tissue swelling Left hip x-ray showed no evidence of acute osseous injury. Ortho on board Recommended conservative management and hinged knee brace with nonweightbearing If the bracing would fail for any reason, the patient may require ORIF versus a revision tibial component to be placed. If surgery required, patient will need to be transferred to tertiary care facility to get it done Continue nonoperative management as per Ortho Orthotic consult placed by Ortho to measure for the brace Hinged knee brace to be on at all times. May loosen for bathing. No ROM of knee at this time. PT OT eval. NWB LLE with brace. Continue pain control plan to go to rehab Right knee pain Consider to get an x-ray of the R knee if pain worsening Continue pain control Clinically improved 10/04/21 increased L knee and (+) R knee pain today xrays ordered, reviewed messaged Ortho to re-evaluate patient continue brace to the Left knee joint Lidoderm patch, Ice to R foot transition to Rehab when medically stable (2) UTI (urinary tract infection): (3) Leukocytosis: Plan: WBC 17. Afebrile, lactate 2.2 on admission Patient was started on cefepime IV then antibiotic changed to Zosyn and Vanco Vanco discontinued today since urine culture grew gram-negative bacilli Urine culture grew E. coli pansensitive WBC normalized at 6.4 IV Zosyn discontinued and transition to p.o. amoxicillin Completed the course of Amoxicillin 10/04/21 completed Zosyn and Amoxicillin course no urinary symptoms (4) Uncontrolled type II diabetes mellitus: Plan: Most recent hemoglobin A1c 15.5 on 09/23/2021 Currently on Lantus and insulin sliding scale during the hospital course Home regimen includes Lantus 68 unit BID, 10 unit TIDM [facility] on board for glycemic management Continue monitor blood sugar 10/04/21 BSG 145 (5) Hyperkalemia: Plan: Potassium on admission 5.2 Continue to hold Losartan Potassium 4.5 today Continue monitor BMP resolved (6) Combined congestive systolic and diastolic heart failure: Plan: (+) volume overload remains on 2 L CXR: CHF pattern Lasix 40mg IV given (+) rales, dyspnea--> improving Lasix 20mg IV BID --> transitioned to Torsemide 40mg BID per nephro crea 1.6 Nephro on board --> appreciate the recommendations (7) CKD (chronic kidney disease), stage III: Plan: ELOY on CKD stage III Creatinine on admission worsening to 3.08, creatinine (baseline 1.6-1.8). Creatinine improves from 2.76 to 2.09--> 1.55-->1.49 Continue to hold losartan Nephrology on board Renal ultrasound showed no obstruction or hydronephrosis case discussed with nephrology that suggested to only restart either losartan OR lasix, but not both Continue monitor BMP daily 10/04/21 crea 1.6( baseline) Losartan on hold (8) HTN (hypertension): Plan: Continue carvedilol, holding losartan as discussed above Stable (9) Asthma: Plan: Continue home inhalers, supplemental O2 HS (10) Complete heart block: Plan: S/p pacemaker placement. ECG with atrial-paced rhythm (11) Dyslipidemia: Plan: Continue statin (12) PVD (peripheral vascular disease): Plan: Continue aspirin, plavix (13) Morbid obesity due to excess calories: Plan: [facility]eval[facility] Ppx: on heparin subcu Code status: FULL Dispo: Continue monitor closely transition to [facility] when medically stable plan of care discussed with patient in detail and at length all questions answered she is understanding, agreeable, comfortable with the plan of care Called patient's , but no answer will try again tomorrow Admission and Anticipated Discharge Date Admission Date: September 22, 2021 Subjective ff up for L knee fracture, acute on chronic CHF, etc resting in bed, on 2L NC not in distress reports increased L knee pain today, also having R knee pain no chest pain, dyspnea, palpitations, dizziness no other symptoms Review of Systems Review of Systems: all noted and negative except for above Physical Exam Physical Exam: General- oriented x 2, not in distress, speaks in sentences with no effort or accessory muscle use Eyes- anicteric Neck- no JVD Lungs- mild rales at the bases, no wheezing Heart- normal rate, regular rhythm; no murmurs Abdomen- normal bowel sounds, nondistended, soft, nontender Extremities- mild L lower leg edema, (+) knee tenderness, no erythema, (+) mild warmth R knee: (+) mild tenderness, no erythema/warmth/tenderness Neuro- alert, oriented x 2; no gross focal neurologic deficits Skin- warm & dry Results & Data Results & Data ([facility]) Vital Signs (Past 12 Hours) Vital Signs Temp Pulse Pulse Resp BP Pulse Ox 10/04/21 11:40 37.2 C 89 121/59 L 95 10/04/21 09:19 92 H 10/04/21 07:25 36.8 C 85 134/70 92 10/04/21 02:37 36.7 C 91 H 20 121/68 93 all noted and reviewed including below
--- NOTE | 2021-10-04 14:09 | Orthopedic Progress Note ---
Date of Service October 04, 2021 Assessment & Plan (1) Shital-prosthetic fracture of proximal tibia: Plan: Pt being treated Non Op for periprosthetic Tiba fx. Hinged knee brace to be on at all times. May loosen for bathing. No ROM of knee at this time. Begin PT/OT. NWB LLE with brace. Pain management as written. Discussed with the patient that this may take multiple weeks before pain starts to decrease. The fracture will begin to heal over the next few weeks. However, she will be nonweightbearing for at least another 6 to 8 weeks, depending on the healing of the fracture on x-rays. No change in treatment at this time. She will follow-up as an outpatient once discharged from the hospital. Admission and Anticipated Discharge Date Admission Date: September 22, 2021 Subjective The patient was seen today at the request of Dr. Shaver. The patient states her pain has not changed. However, she is not getting the same pain relief between pain medications that she once had been. She has not had any new injuries. She is have not had any new falls. She continues to be nonweightbearing with a T scope knee brace locked in extension. Physical Exam Constitutional: WD/WN, vitals as above no acute distress Musculoskeletal: Knee: + surgical incision (Well-healed bilateral anterior knee incisions) and + joint line tenderness (Left proximal tibia); no skin erythema and no valgus alignment Skin: no rashes, warm and dry Neurologic: normal touch/pain/proprioception Psychiatric: A+Ox3, euthymic affect Speech: normal rate/rhythm/volume of speech Results & Data ([facility]) Vital Signs (Past 12 Hours) Vital Signs Temp Pulse Pulse Resp BP Pulse Ox 10/04/21 11:40 37.2 C 89 121/59 L 95 10/04/21 09:19 92 H 10/04/21 07:25 36.8 C 85 134/70 92 10/04/21 02:37 36.7 C 91 H 20 121/68 93 Diagnostic Findings 2 views of the left knee were reviewed. The total knee arthroplasty implant is well aligned. No evidence of any loosening or breaking. There is a well aligned periprosthetic proximal tibia fracture. No change in alignment from previous films. (1) Shital-prosthetic fracture of proximal tibia Encounter type: initial encounter Qualified Code(s): M97.8XXA - Periprosthetic fracture around other internal prosthetic joint, initial encounter; Z96.659 - Presence of unspecified artificial knee joint
[2021-10-04] MEDS: TORSEMIDE 10 MG TAB PO SCH (21:34)
[2021-10-05] MEDS: ACETAMINOPHEN 325 MG TAB PO SCH ×2 (00:17→05:37)
[2021-10-05] MEDS: SODIUM CHLORIDE 0.65% NA SOLN 45 ML (OCEAN) SCH ×6 (01:48→22:18)
[2021-10-05] MEDS: HEPARIN SOD 5,000 UNIT/0.5 ML VIAL SQ SCH ×3 (05:37→20:36)
[2021-10-05] MEDS: traMADol HCL 50 MG TABLET PO PRN (07:14)
[2021-10-05 07:50] LABS: BUN Creatinine Ratio 19.5 (10-20); Calcium 9.9 mg/dl (8.5-10.1); Est GFR (African American) 37.6 ml/min; Est GFR (Non-African American) 32.4 ml/min; Potassium 4.8 mmol/L (3.5-5.1)
[2021-10-05] MEDS: UMECLIDINIUM BROMIDE 62.5MCG/BLISTER 7 PUFFS/INHALER INH SCH (08:15)
[2021-10-05] MEDS: ROSUVASTATIN CALCIUM 20 MG TAB PO SCH (08:16)
[2021-10-05] MEDS: LORATADINE 10 MG TAB PO PRN (08:16)
[2021-10-05] MEDS: TORSEMIDE 10 MG TAB PO SCH (08:16)
[2021-10-05] MEDS: CEROVITE ADV FORMULA TAB PO SCH (08:16)
[2021-10-05] MEDS: CYANOCOBALAMIN (B-12) 100 MCG TABLET PO SCH (08:16)
[2021-10-05] MEDS: LIDOCAINE 5% 1 PATCH TD SCH (08:16)
[2021-10-05] MEDS: ASPIRIN 81 MG ECTAB PO SCH (08:16)
[2021-10-05] MEDS: BUDESONIDE AQ (RHINOCORT AQ) NASAL SPRAY 32 MCG NAE SCH (08:17)
[2021-10-05] MEDS: POTASSIUM CHLORIDE CRTAB 20 MEQ TABCR PO SCH ×2 (08:17→17:46)
[2021-10-05] MEDS: DICLOFENAC SOD 1% GEL 100 GM TUBE EXT SCH ×4 (08:17→20:35)
[2021-10-05] MEDS: MONTELUKAST SODIUM 10 MG TABLET PO SCH (08:17)
[2021-10-05] MEDS: CLOPIDOGREL BISULFATE 75 MG TAB PO SCH (08:17)
[2021-10-05] MEDS: TRIAMCINOLONE ACET 0.025% CR 15 GM TUBE TOP SCH ×2 (08:19→20:35)
[2021-10-05] MEDS: INSULIN ASPART PER UNIT SC SCH ×4 (08:26→20:39)
[2021-10-05] MEDS: INSULIN GLARGINE SOLOSTAR 100 UNITS/ML 3 ML PEN SC SCH ×2 (08:28→20:35)
[2021-10-05] MEDS ORDERED: POLYETHYLENE (MIRALAX) 17 GM PACK PO ONE (09:45)
[2021-10-05] MEDS: HYDROCODONE/ACETAMOPHEN 5/325MG TAB PO PRN ×2 (09:56→23:32)
[2021-10-05] MEDS ORDERED: MAGNESIUM HYDROXIDE SUSP 30 ML UDC PO PRN (10:24)
--- NOTE | 2021-10-05 13:20 | Hospitalist Progress Note ---
Date of Service October 05, 2021 Assessment & Plan (1) Periprosthetic fracture around internal prosthetic left knee joint: Plan: per Dr. Moreau's notes with addendum: This is a 76yo F with a PMH of DM II, asthma, severe sleep apnea on 3L NC HS, combined systolic and diastolic heart failure, h/o complete heart block s/p pacemaker placement, LBBB, PVD, CKD III, dyslipidemia, morbid obesity and other medical problems as below who presents from home after fall. Tibia/fibula XR with fracture of the proximal tibia at the distal aspect of the tibial component of the knee arthroplasty. There is associated soft tissue swelling Left hip x-ray showed no evidence of acute osseous injury. Ortho on board Recommended conservative management and hinged knee brace with nonweightbearing If the bracing would fail for any reason, the patient may require ORIF versus a revision tibial component to be placed. If surgery required, patient will need to be transferred to tertiary care facility to get it done Continue nonoperative management as per Ortho Orthotic consult placed by Ortho to measure for the brace Hinged knee brace to be on at all times. May loosen for bathing. No ROM of knee at this time. PT OT eval. NWB LLE with brace. Continue pain control plan to go to rehab Right knee pain Consider to get an x-ray of the R knee if pain worsening Continue pain control Clinically improved 10/05/21 increased L knee and (+) R knee pain today Per Ortho, recommend to continue brace, pain control Orthotic specialist Hermilo brambila notified to evaluate patient, as brace may need to be adjusted Ortho message regarding right knee x-ray findings continue brace to the Left knee joint Lidoderm patch transition to Rehab when medically stable (2) UTI (urinary tract infection): (3) Leukocytosis: Plan: WBC 17. Afebrile, lactate 2.2 on admission Patient was started on cefepime IV then antibiotic changed to Zosyn and Vanco Vanco discontinued today since urine culture grew gram-negative bacilli Urine culture grew E. coli pansensitive WBC normalized at 6.4 IV Zosyn discontinued and transition to p.o. amoxicillin Completed the course of Amoxicillin 10/05/21 completed Zosyn and Amoxicillin course no urinary symptoms (4) Uncontrolled type II diabetes mellitus: Plan: Most recent hemoglobin A1c 15.5 on 09/23/2021 Currently on Lantus and insulin sliding scale during the hospital course Home regimen includes Lantus 68 unit BID, 10 unit TIDM [facility] on board for glycemic management Continue monitor blood sugar 10/05/21 BSG 173 (5) Hyperkalemia: Plan: Potassium on admission 5.2 Continue to hold Losartan Potassium 4.5 today Continue monitor BMP resolved (6) Combined congestive systolic and diastolic heart failure: Plan: (+) volume overload remains on 2 L CXR: CHF pattern Lasix 40mg IV given (+) rales, dyspnea--> improving Lasix 20mg IV BID --> transitioned to usual Lasix 40mg BID per nephro crea 1.6 Nephro on board --> appreciate the recommendations (7) CKD (chronic kidney disease), stage III: Plan: ELOY on CKD stage III Creatinine on admission worsening to 3.08, creatinine (baseline 1.6-1.8). Creatinine improves from 2.76 to 2.09--> 1.55-->1.49 Continue to hold losartan Nephrology on board Renal ultrasound showed no obstruction or hydronephrosis case discussed with nephrology that suggested to only restart either losartan OR lasix, but not both Continue monitor BMP daily 10/05/21 crea 1.6( baseline) Losartan on hold (8) HTN (hypertension): Plan: Continue carvedilol, holding losartan as discussed above Stable (9) Asthma: Plan: Continue home inhalers, supplemental O2 HS (10) Complete heart block: Plan: S/p pacemaker placement. ECG with atrial-paced rhythm (11) Dyslipidemia: Plan: Continue statin (12) PVD (peripheral vascular disease): Plan: Continue aspirin, plavix (13) Morbid obesity due to excess calories: Plan: PT OT/eval: Recommend [facility] facility DVT Ppx: on heparin subcu Code status: FULL Dispo: Continue monitor closely transition to [facility] when medically stable plan of care discussed with patient in detail and at length all questions answered she is understanding, agreeable, comfortable with the plan of care Also discussed with patient's Teofilo yesterday, all questions answered All questions answered He is also understanding, agreeable, comfortable with the plan of care Admission and Anticipated Discharge Date Admission Date: September 22, 2021 Subjective Follow-up for left knee fracture, volume overload, etc. Seen resting in bed, comfortable, in good spirits States she feels fine overall Left knee pain still significant, about the same as yesterday Breathing is okay Denies chest pain, palpitations, dizziness No other symptoms Review of Systems Review of Systems: all noted and negative except for above Physical Exam Physical Exam: General- oriented x 2, not in distress, speaks in sentences with no effort or accessory muscle use Eyes- anicteric Neck- no JVD Lungs-very mild crackles at the bases, no wheezing Heart- normal rate, regular rhythm; no murmurs Abdomen- normal bowel sounds, nondistended, soft, nontender Extremities- Left knee: Minimal edema, no warmth, mild tenderness Right knee: No edema/warmth/tenderness Right foot: No edema/warmth/tenderness Neuro- alert, oriented x 3; no gross focal neurologic deficits Skin- warm & dry Results & Data Results & Data ([facility]) Vital Signs (Past 12 Hours) Vital Signs Temp Pulse Pulse Resp BP Pulse Ox 10/05/21 09:13 79 10/05/21 06:43 37 C 84 123/71 94 10/05/21 04:27 36.7 C 88 18 134/73 95 all noted and reviewed including below
[2021-10-05] MEDS: FUROSEMIDE 40 MG TAB PO SCH (17:46)
[2021-10-06] MEDS: SODIUM CHLORIDE 0.65% NA SOLN 45 ML (OCEAN) SCH ×6 (01:51→21:07)
[2021-10-06] MEDS: traMADol HCL 50 MG TABLET PO PRN ×2 (03:37→18:27)
[2021-10-06] MEDS: HYDROCODONE/ACETAMOPHEN 5/325MG TAB PO PRN ×2 (05:26→13:50)
[2021-10-06] MEDS: HEPARIN SOD 5,000 UNIT/0.5 ML VIAL SQ SCH ×3 (05:27→21:05)
[2021-10-06 06:53] LABS: BUN Creatinine Ratio 20.3 (10-20); Calcium 9.9 mg/dl (8.5-10.1); Est GFR (African American) 36.5 ml/min; Est GFR (Non-African American) 31.5 ml/min; Potassium 4.6 mmol/L (3.5-5.1)
[2021-10-06] MEDS: POTASSIUM CHLORIDE CRTAB 20 MEQ TABCR PO SCH ×2 (07:31→18:27)
[2021-10-06] MEDS: MONTELUKAST SODIUM 10 MG TABLET PO SCH (07:31)
[2021-10-06] MEDS: CLOPIDOGREL BISULFATE 75 MG TAB PO SCH (07:32)
[2021-10-06] MEDS: CEROVITE ADV FORMULA TAB PO SCH (07:32)
[2021-10-06] MEDS: ROSUVASTATIN CALCIUM 20 MG TAB PO SCH (07:33)
[2021-10-06] MEDS: ASPIRIN 81 MG ECTAB PO SCH (07:33)
[2021-10-06] MEDS: FUROSEMIDE 40 MG TAB PO SCH ×2 (07:34→18:28)
[2021-10-06] MEDS: CYANOCOBALAMIN (B-12) 100 MCG TABLET PO SCH (07:34)
[2021-10-06] MEDS: DICLOFENAC SOD 1% GEL 100 GM TUBE EXT SCH ×4 (07:35→19:50)
[2021-10-06] MEDS: LIDOCAINE 5% 1 PATCH TD SCH (07:37)
[2021-10-06] MEDS: POLYETHYLENE (MIRALAX) 17 GM PACK PO SCH (08:57)
[2021-10-06] MEDS: INSULIN ASPART PER UNIT SC SCH ×4 (08:58→21:00)
[2021-10-06] MEDS: UMECLIDINIUM BROMIDE 62.5MCG/BLISTER 7 PUFFS/INHALER INH SCH (08:59)
[2021-10-06] MEDS: INSULIN GLARGINE SOLOSTAR 100 UNITS/ML 3 ML PEN SC SCH ×2 (09:00→21:03)
[2021-10-06] MEDS: TRIAMCINOLONE ACET 0.025% CR 15 GM TUBE TOP SCH ×2 (09:50→19:50)
[2021-10-06] MEDS: BUDESONIDE AQ (RHINOCORT AQ) NASAL SPRAY 32 MCG NAE SCH ×2 (10:08→13:21)
--- NOTE | 2021-10-06 11:00 | Pharmacy Report ---
Pharmacy Glycemic Short Note 2 - Date of Service October 06, 2021 - Glycemic Short BSG Results (Last 24 hours): 10/05/21 10/05/21 10/05/21 11:29 16:50 19:52 Glucose POC Glucose 173 H 139 H 200 H 10/06/21 10/06/21 05:52 08:09 Glucose 161 H POC Glucose 163 H OUTPATIENT ANTIDIABETIC REGIMEN: * Lantus 68 units SC BID * NovoLog 10 units SC TID * Trulicity 3 mg SC once weekly * HbA1c = 13.5% (09/23/21) ASSESSMENT: 10/06 * Patient received total of 78 units of insulin yesterday, of which 50 units were basal insulin * Fasting BSG 161 mg/dL - plan to continue same basal insulin, as dose increased just yesterday * Continue same CF/CR 10/04 * BSGs remain well-controlled, 84, 84, 103, and 110 mg/dL yesterday, fasting BSG of 149 mg/dL * Received 52 units of insulin (30 units of Lantus and 22 units of prandial/correctional bolus) * Will plan to switch back to BID Lantus to correlate with outpatient regimen * Will continue slightly loosened Novolog parameters from yesterday * No change to stressors 10/03 * BSGs reasonably well-controlled yesterday, ranging 109-187 mg/dL * BSGs trending lower than usual today with fasting BSG of 84 mg/dL this morning * Will decrease Lantus dose today and slightly loosen Novolog carb coverage 09/28: * Received 61 units of insulin yesterday (50 units Lantus + 11 units Novolog). BSGs were acceptable: [phone] mg/dL * Fasting BSG of 138 mg/dL this AM is at goal. No change in insulin regimen necessary today. PLAN FOR INPATIENT GLYCEMIC CONTROL: * Hold outpatient Trulicity * Basal insulin - continue same * Lantus 25 units SC BID * Bolus insulin - continue * NovoLog per scale ACHS or Q6hrs while NPO * Goal Range: Low 110 mg/dL - High 140 mg/dL * Correction Factor: 12 mg/dL/unit * Nutritional / Prandial insulin per carb ratio of 1 unit per 5 grams CHO consumed PLAN FOR DISCHARGE: * HbA1c of 13.5% is well above goal of less than 8% for this patient. Recommend referral to supervisor drilling and shooting or MTM clinic for help with managing T2DM. * Reported outpatient insulin doses are significantly higher than inpatient insulin needs currently * DM educator met with patient and patient reports eating very little at home. Would recommend continuing similar insulin doses as she is currently receiving during hospital stay. * Reduce Lantus to 25-30 units SC BID - this is a ~50% reduction in home dose * Continue Novolog 10 units TIDM and home Trulicity * Contact provider if BSGs consistently above 200 mg/dL or below 90 mg/dL.
--- NOTE | 2021-10-06 16:37 | Hospitalist Progress Note ---
Date of Service October 06, 2021 Assessment & Plan (1) Periprosthetic fracture around internal prosthetic left knee joint: Plan: per Dr. Moreau's notes with addendum: This is a 76yo F with a PMH of DM II, asthma, severe sleep apnea on 3L NC HS, combined systolic and diastolic heart failure, h/o complete heart block s/p pacemaker placement, LBBB, PVD, CKD III, dyslipidemia, morbid obesity and other medical problems as below who presents from home after fall. Tibia/fibula XR with fracture of the proximal tibia at the distal aspect of the tibial component of the knee arthroplasty. There is associated soft tissue swelling Left hip x-ray showed no evidence of acute osseous injury. Ortho Recommended conservative management and hinged knee brace with nonweightbearing If the bracing would fail for any reason, the patient may require ORIF versus a revision tibial component to be placed. If surgery required, patient will need to be transferred to tertiary care facility to get it done Orthotic consult placed by Ortho to measure for the brace Hinged knee brace to be on at all times. May loosen for bathing. No ROM of knee at this time. pain control improving with PRN Tramadol and [place] brace adjusted by Orthotic Specialist yesterday continue PT/OT outpatient ff up with [facility] (2) UTI (urinary tract infection): (3) Leukocytosis: Plan: Urine culture grew E. coli pansensitive completed Zosyn and Amoxicillin course no urinary symptoms (4) Uncontrolled type II diabetes mellitus: Plan: Most recent hemoglobin A1c 15.5 on 09/23/2021 Currently on Lantus and insulin sliding scale during the hospital course Home regimen includes Lantus 68 unit BID, 10 unit TIDM Novolog, [facility] on board for glycemic management Continue monitor blood sugar (5) Hyperkalemia: Plan: Potassium on admission 5.2 Continue to hold Losartan resolved (6) Combined congestive systolic and diastolic heart failure: Plan: IV Lasix titrated for volume overload transitioned to usual Lasix 40mg BID per nephro crea 1.6 remains on 2 L via NC--> wean off accordingly monitor volume status closely at SNF (7) CKD (chronic kidney disease), stage III: Plan: ELOY on CKD stage III Creatinine on admission worsening to 3.08, creatinine (baseline 1.6-1.8). Creatinine improved from 2.76 to 1.49 Continue to hold losartan Nephrology on board Renal ultrasound showed no obstruction or hydronephrosis 10/06/21 crea 1.6( baseline) continue to monitor while on Lasix Losartan discontinued (8) HTN (hypertension): Plan: Continue carvedilol, holding losartan as discussed above Stable (9) Asthma: Plan: Continue home inhalers, supplemental O2 HS (10) Complete heart block: Plan: S/p pacemaker placement. ECG with atrial-paced rhythm (11) Dyslipidemia: Plan: Continue statin (12) PVD (peripheral vascular disease): Plan: Continue aspirin, plavix (13) Morbid obesity due to excess calories: Plan: PT OT/eval: Recommend longterm facility DVT Ppx: on heparin subcu Code status: FULL Dispo: Continue monitor closely transition to [facility] when medically stable, anticipate tomorrow plan of care discussed with patient in detail and at length all questions answered she is understanding, agreeable, comfortable with the plan of care Admission and Anticipated Discharge Date Admission Date: September 22, 2021 Subjective ff up for l knee fracture, volume overload, CHF, etc seen resting in bed, comfortable on 2 L nasal cannula in good spirits watching TV states she feels improved overall no dyspnea, cough L knee pain improving overall no R foot or knee pain no other symptoms Review of Systems Review of Systems: all noted and negative except for above Physical Exam Physical Exam: General- oriented x 2, not in distress, speaks in sentences with no effort or accessory muscle use Eyes- anicteric Neck- no JVD Lungs- mild rales at the bases no wheezing Heart- normal rate, regular rhythm; no murmurs Abdomen- normal bowel sounds, nondistended, soft, nontender Extremities-L knee: mild edema, no tenderness, no erythema R foot and knee: essentially normal Neuro- alert, oriented x 2; no gross focal neurologic deficits Skin- warm & dry Results & Data Results & Data ([place]) Vital Signs (Past 12 Hours) Vital Signs Temp Pulse Resp BP Pulse Ox 10/06/21 14:36 37 C 91 H 18 129/71 90 10/06/21 07:01 37 C 99 H 18 156/68 H 94 all noted and reviewed including below
[2021-10-07] MEDS: SODIUM CHLORIDE 0.65% NA SOLN 45 ML (OCEAN) SCH ×6 (02:10→21:17)
[2021-10-07] MEDS: HEPARIN SOD 5,000 UNIT/0.5 ML VIAL SQ SCH ×3 (05:36→21:12)
[2021-10-07] MEDS: HYDROCODONE/ACETAMOPHEN 5/325MG TAB PO PRN ×2 (05:58→18:05)
[2021-10-07 07:34] LABS: BUN Creatinine Ratio 19.5 (10-20); Calcium 10.1 mg/dl (8.5-10.1); Creatinine Clr Calc Pharmacy 38.5 ml/min; Est GFR (African American) 34.8 ml/min; Est GFR (Non-African American) 30.1 ml/min; Potassium 4.5 mmol/L (3.5-5.1)
[2021-10-07] MEDS: POLYETHYLENE (MIRALAX) 17 GM PACK PO SCH (08:42)
[2021-10-07] MEDS: POTASSIUM CHLORIDE CRTAB 20 MEQ TABCR PO SCH ×2 (08:47→16:45)
[2021-10-07] MEDS: ROSUVASTATIN CALCIUM 20 MG TAB PO SCH (08:48)
[2021-10-07] MEDS: LIDOCAINE 5% 1 PATCH TD SCH (08:48)
[2021-10-07] MEDS: ASPIRIN 81 MG ECTAB PO SCH (08:48)
[2021-10-07] MEDS: MONTELUKAST SODIUM 10 MG TABLET PO SCH (08:48)
[2021-10-07] MEDS: DICLOFENAC SOD 1% GEL 100 GM TUBE EXT SCH ×4 (08:49→20:18)
[2021-10-07] MEDS: LORATADINE 10 MG TAB PO PRN (08:49)
[2021-10-07] MEDS: CEROVITE ADV FORMULA TAB PO SCH (08:49)
[2021-10-07] MEDS: FUROSEMIDE 40 MG TAB PO SCH ×2 (08:49→16:44)
[2021-10-07] MEDS: CYANOCOBALAMIN (B-12) 100 MCG TABLET PO SCH (08:49)
[2021-10-07] MEDS: CLOPIDOGREL BISULFATE 75 MG TAB PO SCH (08:49)
[2021-10-07] MEDS: TRIAMCINOLONE ACET 0.025% CR 15 GM TUBE TOP SCH ×2 (08:51→20:21)
[2021-10-07] MEDS: UMECLIDINIUM BROMIDE 62.5MCG/BLISTER 7 PUFFS/INHALER INH SCH (08:52)
[2021-10-07] MEDS: INSULIN GLARGINE SOLOSTAR 100 UNITS/ML 3 ML PEN SC SCH ×2 (08:56→21:12)
[2021-10-07] MEDS: INSULIN ASPART PER UNIT SC SCH ×4 (08:57→21:10)
[2021-10-07] MEDS: traMADol HCL 50 MG TABLET PO PRN ×2 (13:18→20:16)
--- NOTE | 2021-10-07 15:24 | XRay Report ---
KUB HISTORY: Right-sided abdominal pain. COMPARISON: Abdomen and pelvis CT 10/01/2019. FINDINGS: The bowel gas pattern is unremarkable. There are no dilated loops of small bowel to suggest an obstruction. No renal calculi. No ureteral calculi. No pneumoperitoneum or pneumatosis. Small to moderate amount of well-formed stool within the colon. Splenic vascular calcifications are noted. Miles boptimal evaluation of the abdomen and pelvis due to the patient's habitus. IMPRESSION: 1. No evidence for bowel obstruction. 2. No renal or ureteral calculi identified. ACT 112: Negative or not required by law. Electronically signed by: Jj Solano M.D. 10/07/2021 3:22 PM
--- NOTE | 2021-10-07 19:56 | Hospitalist Progress Note ---
Date of Service October 07, 2021 Assessment & Plan (1) Periprosthetic fracture around internal prosthetic left knee joint: Plan: 76yo F with a PMH of DM II, asthma, severe sleep apnea on 3L NC HS, combined systolic and diastolic heart failure, h/o complete heart block s/p pacemaker placement, LBBB, PVD, CKD III, dyslipidemia, morbid obesity and other medical problems as below who presents from home after fall. She is being managed for the following: (1) Periprosthetic fracture around internal prosthetic left knee joint: Plan: Tibia/fibula XRwith fracture of the proximal tibia at the distal aspect of the tibial component of the knee arthroplasty. There is associated soft tissue swelling Left hip x-ray showedno evidence of acute osseous injury. Ortho Recommended conservative management and hinged knee brace with nonweightbearing If the bracing would fail for any reason, the patient may require ORIF versus a revision tibial component to be placed. If surgery required, patient will need to be transferred to tertiary care facility to get it done Orthotic consult placed by Ortho to measure for the brace Hinged knee brace to be on at all times. May loosen for bathing. No ROM of knee at this time. pain control improving with PRN Tramadol and [place] continue PT/OT outpatient ff up with [facility] (2) UTI (urinary tract infection): (3) Leukocytosis: Plan: Urine culture grew E. coli pansensitive Status post treatment. (4) Uncontrolled type II diabetes mellitus: Plan: Most recent hemoglobin A1c 15.5 on 09/23/2021 Currently on Lantus and insulin sliding scale during the hospital course Home regimen includes Lantus 68 unit BID, 10 unit TIDM [facility], [facility] Continue monitor blood sugar (5) Hyperkalemia: -Resolved (6) Combined congestive systolic and diastolic heart failure: Plan: IV Lasix titrated for volume overload transitioned to usual Lasix 40mg BID per nephro crea 1.6 remains on 2 L via NC--> wean off successfully. monitor volume status closely at SNF (7) CKD (chronic kidney disease), stage III: Plan: ELOY on CKD stage III, baseline creatinine around 1.6-1.8 Admitting creatinine 3.08, resolved. #. Other chronic medical conditions: HTN, asthma, complete heart block, HLD, PVD, morbid obesity Continue with/resume home meds as and when appropriate. DVT Ppx: on heparin subcu Code status: FULL Dispo: Continue monitor closely transition to [facility] when medically stable, anticipate IN next 1-2 days. Admission and Anticipated Discharge Date Admission Date: September 22, 2021 Subjective Patient lying in bed, on room air, in moderate distress due to pain in her knee, no new acute events overnight, per RN not able to chew her food, hence food transitioned to soft consistency. Patient reports ongoing pain in her left knee with any movement. Patient denies fever/chills. Patient denies headache or dizziness. Patient repeatedly kept saying " I want Teofilo in here" and appears drowsy/lethargic. To most ROS questions, patient replied" a little". Physical Exam Physical Exam: GENERAL: Alert and oriented x3. mild distress, lethargic, drowsy, on RA. HEENT: No pallor, no icterus. Pupils equal, round and reactive to light. Oral mucosa moist. NECK: No JVD, no neck masses. HEART: S1 and S2 heard. Regular rate and rhythm. No murmur, no gallop. RESPIRATORY SYSTEM: Normal AP diameter. No accessory muscle use. No wheezing, no crackles. ABDOMEN: Soft, bowel sounds present, rt side tendernss, no distention. CENTRAL NERVOUS SYSTEM: No facial droop. Speech is clear. Obeys simple commands. Moves extremities. EXTREMITIES: RLE trace edema, LLE with splint and chronic skin changes. no erythema seen. Results & Data Results & Data ([facility]) Vital Signs (Past 12 Hours) Vital Signs Temp Pulse Resp BP Pulse Ox 10/07/21 14:47 37.2 C 101 H 18 110/67 90
[2021-10-08] MEDS: SODIUM CHLORIDE 0.65% NA SOLN 45 ML (OCEAN) SCH ×6 (02:06→21:52)
[2021-10-08] MEDS: traMADol HCL 50 MG TABLET PO PRN (05:33)
[2021-10-08] MEDS: HEPARIN SOD 5,000 UNIT/0.5 ML VIAL SQ SCH ×3 (05:34→23:36)
[2021-10-08 06:54] LABS: Hematocrit (blood only) 36.6 % (37-47); Hemoglobin 11.4 g/dL (12.0-16.0); Mean Corpuscular Hemoglobin 30.4 pg (25-34); Mean Corpuscular Hgb Conc 31.1 g/dL (32-36); Mean Corpuscular Volume 97.6 fL (80-100); Mean Platelet Volume 9.4 fL (7.4-10.4); Platelet Count 397 K/uL (130-400); RDW Coefficient of Variation 15.5 % (11.5-14.5); RDW Standard Deviation 53.9 fL (36.4-46.3); Red Blood Count 3.75 M/uL (4.2-5.4); White Blood Count 12.18 K/uL (4.8-10.8)
[2021-10-08 07:27] LABS: BUN Creatinine Ratio 19.2 (10-20); Calcium 10.1 mg/dl (8.5-10.1); Creatinine Clr Calc Pharmacy 36.7 ml/min; Est GFR (African American) 32.9 ml/min; Est GFR (Non-African American) 28.4 ml/min; Magnesium 1.8 mg/dl (1.7-2.4); Phosphorus 3.6 mg/dl (2.5-4.9); Potassium 4.4 mmol/L (3.5-5.1)
[2021-10-08] MEDS: CYANOCOBALAMIN (B-12) 100 MCG TABLET PO SCH (08:10)
[2021-10-08] MEDS: CLOPIDOGREL BISULFATE 75 MG TAB PO SCH (08:10)
[2021-10-08] MEDS: ASPIRIN 81 MG ECTAB PO SCH (08:10)
[2021-10-08] MEDS: BUDESONIDE AQ (RHINOCORT AQ) NASAL SPRAY 32 MCG NAE SCH (08:10)
[2021-10-08] MEDS: FUROSEMIDE 40 MG TAB PO SCH ×2 (08:11→20:49)
[2021-10-08] MEDS: CEROVITE ADV FORMULA TAB PO SCH (08:11)
[2021-10-08] MEDS: MONTELUKAST SODIUM 10 MG TABLET PO SCH (08:11)
[2021-10-08] MEDS: ROSUVASTATIN CALCIUM 20 MG TAB PO SCH (08:12)
[2021-10-08] MEDS: TRIAMCINOLONE ACET 0.025% CR 15 GM TUBE TOP SCH ×2 (08:12→20:50)
[2021-10-08] MEDS: DICLOFENAC SOD 1% GEL 100 GM TUBE EXT SCH ×4 (08:13→20:50)
[2021-10-08] MEDS: HYDROCODONE/ACETAMOPHEN 5/325MG TAB PO PRN (08:13)
[2021-10-08] MEDS: LIDOCAINE 5% 1 PATCH TD SCH (08:14)
[2021-10-08] MEDS: UMECLIDINIUM BROMIDE 62.5MCG/BLISTER 7 PUFFS/INHALER INH SCH (08:15)
[2021-10-08] MEDS: LORATADINE 10 MG TAB PO PRN (08:16)
[2021-10-08] MEDS: POLYETHYLENE (MIRALAX) 17 GM PACK PO SCH (08:17)
[2021-10-08] MEDS: POTASSIUM CHLORIDE CRTAB 20 MEQ TABCR PO SCH ×2 (08:17→20:49)
[2021-10-08] MEDS: INSULIN ASPART PER UNIT SC SCH ×4 (08:32→21:51)
[2021-10-08] MEDS: INSULIN GLARGINE SOLOSTAR 100 UNITS/ML 3 ML PEN SC SCH ×2 (08:32→21:52)
--- NOTE | 2021-10-08 09:26 | Pharmacy Report ---
Pharmacy Glycemic Short Note 2 - Date of Service October 08, 2021 - Glycemic Short BSG Results (Last 24 hours): 10/07/21 10/07/21 10/07/21 12:01 17:10 20:58 Glucose POC Glucose 207 H 159 H 144 H 10/08/21 10/08/21 06:30 08:06 Glucose 195 H POC Glucose 198 H OUTPATIENT ANTIDIABETIC REGIMEN: * Lantus 68 units SC BID * NovoLog 10 units SC TID * Trulicity 3 mg SC once weekly * HbA1c = 13.5% (09/23/21) ASSESSMENT: 10/08 * Patient received 86 units in past 24 hours, 60 units basal, home regimen also basal heavy, pt consumes small amounts of CHO * Increase Lantus, fasting BSG 198mg/dl, CR tightened yesterday, no further changes at this time 10/06 * Patient received total of 78 units of insulin yesterday, of which 50 units were basal insulin * Fasting BSG 161 mg/dL - plan to continue same basal insulin, as dose increased just yesterday * Continue same CF/CR 10/04 * BSGs remain well-controlled, 84, 84, 103, and 110 mg/dL yesterday, fasting BSG of 149 mg/dL * Received 52 units of insulin (30 units of Lantus and 22 units of prandial/correctional bolus) * Will plan to switch back to BID Lantus to correlate with outpatient regimen * Will continue slightly loosened Novolog parameters from yesterday * No change to stressors 10/03 * BSGs reasonably well-controlled yesterday, ranging 109-187 mg/dL * BSGs trending lower than usual today with fasting BSG of 84 mg/dL this morning * Will decrease Lantus dose today and slightly loosen Novolog carb coverage 09/28: * Received 61 units of insulin yesterday (50 units Lantus + 11 units Novolog). BSGs were acceptable: [phone] mg/dL * Fasting BSG of 138 mg/dL this AM is at goal. No change in insulin regimen necessary today. PLAN FOR INPATIENT GLYCEMIC CONTROL: * Hold outpatient Trulicity * Basal insulin - increase * Lantus 40 units SC BID * Bolus insulin - continue * NovoLog per scale ACHS or Q6hrs while NPO * Goal Range: Low 110 mg/dL - High 140 mg/dL * Correction Factor: 12 mg/dL/unit * Nutritional / Prandial insulin per carb ratio of 1 unit per 4 grams CHO consumed PLAN FOR DISCHARGE: * HbA1c of 13.5% is well above goal of less than 8% for this patient. Recommend referral to dude ranch manager or MTM clinic for help with managing T2DM. * Reported outpatient insulin doses are significantly higher than inpatient insulin needs currently * DM educator met with patient and patient reports eating very little at home. Would recommend continuing similar insulin doses as she is currently receiving during hospital stay. * Reduce Lantus to 30-40 units SC BID - this is a ~50% reduction in home dose * Continue Novolog 10 units TIDM and home Trulicity * Contact provider if BSGs consistently above 200 mg/dL or below 90 mg/dL.
[2021-10-08 15:32] LABS: Adenovirus PCR Not Detected (NotDetected); Bordetella parapertussis PCR Not Detected (NotDetected); Bordetella pertussis PCR Not Detected (NotDetected); Chlamydia pneumoniae PCR Not Detected (NotDetected); Coronavirus 229E PCR Not Detected (NotDetected); Coronavirus HKU1 PCR Not Detected (NotDetected); Coronavirus NL63 PCR Not Detected (NotDetected); Coronavirus OC43PCR Not Detected (NotDetected); Human Metapneumovirus PCR Not Detected (NotDetected); Influenza A PCR Not Detected (NotDetected); Influenza B PCR Not Detected (NotDetected); Mycoplasma pneumoniae PCR Not Detected (NotDetected); Parainfluenza Virus 1 PCR Not Detected (NotDetected); Parainfluenza Virus 2 PCR Not Detected (NotDetected); Parainfluenza Virus 3 PCR Not Detected (NotDetected); Parainfluenza Virus 4 PCR Not Detected (NotDetected); Respiratory Syncytial VirusPCR Not Detected (NotDetected); Rhinovirus/Enterovirus PCR Not Detected (NotDetected)
[2021-10-08 15:38] LABS: Coronavirus CoV-2 (COVID19)PCR DETECTED (NotDetected)
--- NOTE | 2021-10-08 18:22 | Hospitalist Progress Note ---
Date of Service October 08, 2021 Assessment & Plan (1) Periprosthetic fracture around internal prosthetic left knee joint: Plan: 76yo F with a PMH of DM II, asthma, severe sleep apnea on 3L NC HS, combined systolic and diastolic heart failure, h/o complete heart block s/p pacemaker placement, LBBB, PVD, CKD III, dyslipidemia, morbid obesity and other medical problems as below who presents from home after fall. She is being managed for the following: (1) Periprosthetic fracture around internal prosthetic left knee joint: Plan: Tibia/fibula XRwith fracture of the proximal tibia at the distal aspect of the tibial component of the knee arthroplasty. There is associated soft tissue swelling Left hip x-ray showedno evidence of acute osseous injury. Ortho Recommended conservative management and hinged knee brace with nonweightbearing If the bracing would fail for any reason, the patient may require ORIF versus a revision tibial component to be placed. If surgery required, patient will need to be transferred to tertiary care facility to get it done Orthotic consult placed by Ortho to measure for the brace Hinged knee brace to be on at all times. May loosen for bathing. No ROM of knee at this time. pain control improving with PRN Tramadol and [place] continue PT/OT outpatient ff up with [facility] #. COVID-19 Patient has been boosted against Covid. Home oxygen is 3 L as needed and at bedtime. Patient was tested for Covid test prior to discharge to SNF on 10/08, came back positive Patient requiring baseline oxygen, has minimal elevation of WBC today, afebrile We will hold onto a steroid or remdesivir at this point, closely monitor, incentive spirometer (2) UTI (urinary tract infection): (3) Leukocytosis: Plan: Urine culture grew E. coli pansensitive Status post treatment. (4) Uncontrolled type II diabetes mellitus: Plan: Most recent hemoglobin A1c 15.5 on 09/23/2021 Currently on Lantus and insulin sliding scale during the hospital course Home regimen includes Lantus 68 unit BID, 10 unit TIDM Novolog, Trulicity Pharmacy on board for glycemic management Continue monitor blood sugar (5) Hyperkalemia: -Resolved (6) Combined congestive systolic and diastolic heart failure: Plan: IV Lasix titrated for volume overload transitioned to usual Lasix 40mg BID per nephro crea 1.6 monitor volume status closely (7) CKD (chronic kidney disease), stage III: Plan: ELOY on CKD stage III, baseline creatinine around 1.6-1.8 Admitting creatinine 3.08, resolved. #. Other chronic medical conditions: HTN, asthma, complete heart block, HLD, PVD, morbid obesity Continue with/resume home meds as and when appropriate. DVT Ppx: on heparin subcu Code status: FULL Dispo: Continue monitor closely transition to [facility] when medically stable, anticipate IN next 1-2 days. Admission and Anticipated Discharge Date Admission Date: September 22, 2021 Subjective Patient seen and examined at bedside for periprosthetic fracture around internal prosthetic left knee joint. Patient was sitting up at the edge of the bed, on 2 L nasal cannula oxygen, NAD, able to work with physical therapy, no new acute events overnight. Patient reports knee pain but better controlled than yesterday. Patient reports eating okay, denies fever/chills/headache/chest pain/palpitation/other review of symptoms. Physical Exam Physical Exam: GENERAL: Alert and oriented x3. NAD, on 2L. HEENT: No pallor, no icterus. Pupils equal, round and reactive to light. Oral mucosa moist. NECK: No JVD, no neck masses. HEART: S1 and S2 heard. Regular rate and rhythm. No murmur, no gallop. RESPIRATORY SYSTEM: Normal AP diameter. No accessory muscle use. No wheezing, no crackles. ABDOMEN: Soft, bowel sounds present, rt side tendernss, no distention. CENTRAL NERVOUS SYSTEM: No facial droop. Speech is clear. Obeys simple commands. Moves extremities. EXTREMITIES: RLE trace edema, LLE with splint and chronic skin changes. no erythema seen. Urinary catheter with light yellow urine collection noted. Results & Data Results & Data ([facility]) Vital Signs (Past 12 Hours) Vital Signs Temp Pulse Pulse Resp BP BP BP 10/08/21 16:38 36.8 C 82 18 108/62 10/08/21 11:45 36.4 C L 86 93 H 16 134/63 134/60 127/65 10/08/21 07:40 36.4 C L 86 16 134/60 Pulse Ox 10/08/21 16:38 94 10/08/21 11:45 93 10/08/21 07:40 93
[2021-10-09] MEDS: HYDROCODONE/ACETAMOPHEN 5/325MG TAB PO PRN ×4 (01:11→23:17)
[2021-10-09] MEDS: SODIUM CHLORIDE 0.65% NA SOLN 45 ML (OCEAN) SCH ×6 (02:05→21:30)
[2021-10-09] MEDS: HEPARIN SOD 5,000 UNIT/0.5 ML VIAL SQ SCH ×3 (05:37→21:30)
[2021-10-09 08:38] LABS: Hematocrit (blood only) 36.6 % (37-47); Hemoglobin 11.2 g/dL (12.0-16.0); Mean Corpuscular Hemoglobin 29.9 pg (25-34); Mean Corpuscular Hgb Conc 30.6 g/dL (32-36); Mean Corpuscular Volume 97.9 fL (80-100); Mean Platelet Volume 9.7 fL (7.4-10.4); Platelet Count 386 K/uL (130-400); RDW Coefficient of Variation 15.5 % (11.5-14.5); RDW Standard Deviation 54.3 fL (36.4-46.3); Red Blood Count 3.74 M/uL (4.2-5.4); White Blood Count 10.18 K/uL (4.8-10.8)
[2021-10-09 08:56] LABS: BUN Creatinine Ratio 20.2 (10-20); Calcium 9.7 mg/dl (8.5-10.1); Creatinine Clr Calc Pharmacy 35.7 ml/min; Est GFR (African American) 32.7 ml/min; Est GFR (Non-African American) 28.2 ml/min; Magnesium 1.8 mg/dl (1.7-2.4); Potassium 4.5 mmol/L (3.5-5.1)
[2021-10-09] MEDS: INSULIN ASPART PER UNIT SC SCH ×4 (08:56→21:30)
[2021-10-09] MEDS: DICLOFENAC SOD 1% GEL 100 GM TUBE EXT SCH ×4 (09:03→20:10)
[2021-10-09] MEDS: TRIAMCINOLONE ACET 0.025% CR 15 GM TUBE TOP SCH ×2 (09:04→20:09)
[2021-10-09] MEDS: POLYETHYLENE (MIRALAX) 17 GM PACK PO SCH (09:04)
--- NOTE | 2021-10-09 09:04 | Pharmacy Report ---
Pharmacy Glycemic Short Note 2 - Date of Service October 09, 2021 - Glycemic Short BSG Results (Last 24 hours): 10/08/21 10/08/21 10/08/21 12:02 17:01 20:58 Glucose POC Glucose 181 H 118 H 207 H 10/09/21 10/09/21 07:06 07:09 Glucose 142 H POC Glucose 142 H OUTPATIENT ANTIDIABETIC REGIMEN: * Lantus 68 units SC BID * NovoLog 10 units SC TID * Trulicity 3 mg SC once weekly * HbA1c = 13.5% (09/23/21) ASSESSMENT: 10/09/21 * BSGs yesterday were [phone] mg/dL. Patient received 111 units of insulin (80 units of basal and 31 units of bolus). * Patient's Lantus was increased by 33% yesterday due to elevated fastings. During this hospitalization, there is excellent data with 50 units of basal. Elevated fastings most likely due to lower basal rates a couple of days prior. Decrease to 30 units BID. * Continue Novolog as BSGs stayed stable. 10/08 * Patient received 86 units in past 24 hours, 60 units basal, home regimen also basal heavy, pt consumes small amounts of CHO * Increase Lantus, fasting BSG 198mg/dl, CR tightened yesterday, no further changes at this time 10/06 * Patient received total of 78 units of insulin yesterday, of which 50 units were basal insulin * Fasting BSG 161 mg/dL - plan to continue same basal insulin, as dose increased just yesterday * Continue same CF/CR 10/04 * BSGs remain well-controlled, 84, 84, 103, and 110 mg/dL yesterday, fasting BSG of 149 mg/dL * Received 52 units of insulin (30 units of Lantus and 22 units of prandial/correctional bolus) * Will plan to switch back to BID Lantus to correlate with outpatient regimen * Will continue slightly loosened Novolog parameters from yesterday * No change to stressors 10/03 * BSGs reasonably well-controlled yesterday, ranging 109-187 mg/dL * BSGs trending lower than usual today with fasting BSG of 84 mg/dL this morning * Will decrease Lantus dose today and slightly loosen Novolog carb coverage 09/28: * Received 61 units of insulin yesterday (50 units Lantus + 11 units Novolog). BSGs were acceptable: [phone] mg/dL * Fasting BSG of 138 mg/dL this AM is at goal. No change in insulin regimen necessary today. PLAN FOR INPATIENT GLYCEMIC CONTROL: * Hold outpatient Trulicity * Basal insulin - decrease * Lantus 30 units SC BID * Bolus insulin - continue * NovoLog per scale ACHS or Q6hrs while NPO * Goal Range: Low 110 mg/dL - High 140 mg/dL * Correction Factor: 12 mg/dL/unit * Nutritional / Prandial insulin per carb ratio of 1 unit per 4 grams CHO consumed PLAN FOR DISCHARGE: * HbA1c of 13.5% is well above goal of less than 8% for this patient. Recommend referral to stem lead former or MTM clinic for help with managing T2DM. * Reported outpatient insulin doses are significantly higher than inpatient insulin needs currently * DM educator met with patient and patient reports eating very little at home. Would recommend continuing similar insulin doses as she is currently receiving during hospital stay. * Reduce Lantus to 30-40 units SC BID - this is a ~50% reduction in home dose * Continue Novolog 10 units TIDM and home Trulicity * Contact provider if BSGs consistently above 200 mg/dL or below 90 mg/dL.
[2021-10-09] MEDS: UMECLIDINIUM BROMIDE 62.5MCG/BLISTER 7 PUFFS/INHALER INH SCH (09:05)
[2021-10-09] MEDS: INSULIN GLARGINE SOLOSTAR 100 UNITS/ML 3 ML PEN SC SCH ×2 (09:13→21:30)
[2021-10-09] MEDS: POTASSIUM CHLORIDE CRTAB 20 MEQ TABCR PO SCH ×2 (10:06→16:52)
[2021-10-09] MEDS: FUROSEMIDE 40 MG TAB PO SCH ×2 (10:06→16:51)
[2021-10-09] MEDS: ASPIRIN 81 MG ECTAB PO SCH (10:14)
[2021-10-09] MEDS: BUDESONIDE AQ (RHINOCORT AQ) NASAL SPRAY 32 MCG NAE SCH (10:16)
[2021-10-09] MEDS: CLOPIDOGREL BISULFATE 75 MG TAB PO SCH (10:17)
[2021-10-09] MEDS: CYANOCOBALAMIN (B-12) 100 MCG TABLET PO SCH (10:17)
[2021-10-09] MEDS: LIDOCAINE 5% 1 PATCH TD SCH (10:18)
[2021-10-09] MEDS: MONTELUKAST SODIUM 10 MG TABLET PO SCH (10:20)
[2021-10-09] MEDS: CEROVITE ADV FORMULA TAB PO SCH (10:21)
[2021-10-09] MEDS: ROSUVASTATIN CALCIUM 20 MG TAB PO SCH (10:21)
--- NOTE | 2021-10-09 18:34 | Hospitalist Progress Note ---
Date of Service October 09, 2021 Assessment & Plan (1) Periprosthetic fracture around internal prosthetic left knee joint: Plan: 76yo F with a PMH of DM II, asthma, severe sleep apnea on 3L NC HS, combined systolic and diastolic heart failure, h/o complete heart block s/p pacemaker placement, LBBB, PVD, CKD III, dyslipidemia, morbid obesity and other medical problems as below who presents from home after fall. She is being managed for the following: (1) Periprosthetic fracture around internal prosthetic left knee joint: Plan: Tibia/fibula XRwith fracture of the proximal tibia at the distal aspect of the tibial component of the knee arthroplasty. There is associated soft tissue swelling Left hip x-ray showedno evidence of acute osseous injury. Ortho Recommended conservative management and hinged knee brace with nonweightbearing If the bracing would fail for any reason, the patient may require ORIF versus a revision tibial component to be placed. If surgery required, patient will need to be transferred to tertiary care facility to get it done Orthotic consult placed by Ortho to measure for the brace Hinged knee brace to be on at all times. May loosen for bathing. No ROM of knee at this time. pain control improving with PRN Tramadol and [place] continue PT/OT outpatient ff up with [facility] #. COVID-19 Patient has been boosted against Covid. Home oxygen is 3 L as needed and at bedtime. Patient was tested for Covid test prior to discharge to SNF on 10/08, came back positive Patient requiring baseline oxygen, afebrile, respiratory mason stable. We will hold onto a steroid or remdesivir at this point, closely monitor, incentive spirometer (2) UTI (urinary tract infection): (3) Leukocytosis: Plan: Urine culture grew E. coli pansensitive Status post treatment. (4) Uncontrolled type II diabetes mellitus: Plan: Most recent hemoglobin A1c 15.5 on 09/23/2021 Currently on Lantus and insulin sliding scale during the hospital course Home regimen includes Lantus 68 unit BID, 10 unit TIDM Novolog, Trulicity Pharmacy on board for glycemic management Continue monitor blood sugar (5) Hyperkalemia: -Resolved (6) Combined congestive systolic and diastolic heart failure: Plan: IV Lasix titrated for volume overload transitioned to usual Lasix 40mg BID per nephro crea 1.6 monitor volume status closely (7) CKD (chronic kidney disease), stage III: Plan: ELOY on CKD stage III, baseline creatinine around 1.6-1.8 Admitting creatinine 3.08, resolved. #. Other chronic medical conditions: HTN, asthma, complete heart block, HLD, PVD, morbid obesity Continue with/resume home meds as and when appropriate. DVT Ppx: on heparin subcu Code status: FULL Dispo: Continue monitor closely Medically stable. Awaiting placement. Admission and Anticipated Discharge Date Admission Date: September 22, 2021 Subjective Patient seen and examined at bedside for periprosthetic fracture around internal prosthetic left knee joint and incidental diagnosis of covid on 10/08. Patient was lying in bed, on 2 L nasal cannula oxygen, NAD, able to work with physical therapy, no new acute events overnight. Patient reports knee pain but better controlled than yesterday. Patient reports eating okay, denies fever/chills/headache/chest pain/palpitation/other review of symptoms. Per RN, no new acute events overnight. She seems to be irritated and not satisfied most of the time during morning rounds, per RN she has been difficult with being taken care of and her medication administration. No particular complaint but overall dissatisfaction from the patient for things like bed or food. Physical Exam Physical Exam: GENERAL: Alert and oriented x3. NAD, on 2L. HEENT: No pallor, no icterus. Pupils equal, round and reactive to light. Oral mucosa moist. NECK: No JVD, no neck masses. HEART: S1 and S2 heard. Regular rate and rhythm. No murmur, no gallop. RESPIRATORY SYSTEM: Normal AP diameter. No accessory muscle use. No wheezing, no crackles. ABDOMEN: Soft, bowel sounds present, rt side tendernss, no distention. CENTRAL NERVOUS SYSTEM: No facial droop. Speech is clear. Obeys simple commands. Moves extremities. EXTREMITIES: RLE trace edema, LLE with splint and chronic skin changes. no erythema seen. Urinary catheter with light yellow urine collection noted. Results & Data Results & Data ([facility]) Vital Signs (Past 12 Hours) Vital Signs Temp Pulse Resp BP Pulse Ox 10/09/21 15:20 36.7 C 97 H 20 127/62 98 10/09/21 07:54 36.8 C 94 H 18 155/71 H 99
[2021-10-10] MEDS: traMADol HCL 50 MG TABLET PO PRN ×3 (02:06→22:20)
[2021-10-10] MEDS: SODIUM CHLORIDE 0.65% NA SOLN 45 ML (OCEAN) SCH ×6 (02:08→22:22)
[2021-10-10] MEDS: HEPARIN SOD 5,000 UNIT/0.5 ML VIAL SQ SCH ×3 (05:53→22:20)
[2021-10-10 08:28] LABS: BUN Creatinine Ratio 18.5 (10-20); Calcium 9.6 mg/dl (8.5-10.1); Creatinine Clr Calc Pharmacy 35.6 ml/min; Est GFR (African American) 32.7 ml/min; Est GFR (Non-African American) 28.2 ml/min; Magnesium 1.8 mg/dl (1.7-2.4); Potassium 4.2 mmol/L (3.5-5.1)
[2021-10-10] MEDS: ASPIRIN 81 MG ECTAB PO SCH (09:40)
[2021-10-10] MEDS: BUDESONIDE AQ (RHINOCORT AQ) NASAL SPRAY 32 MCG NAE SCH (09:42)
[2021-10-10] MEDS: CLOPIDOGREL BISULFATE 75 MG TAB PO SCH (09:42)
[2021-10-10] MEDS: CYANOCOBALAMIN (B-12) 100 MCG TABLET PO SCH (09:42)
[2021-10-10] MEDS: DICLOFENAC SOD 1% GEL 100 GM TUBE EXT SCH ×4 (09:42→20:21)
[2021-10-10] MEDS: LIDOCAINE 5% 1 PATCH TD SCH (09:43)
[2021-10-10] MEDS: FUROSEMIDE 40 MG TAB PO SCH (09:43)
[2021-10-10] MEDS: MONTELUKAST SODIUM 10 MG TABLET PO SCH (09:43)
[2021-10-10] MEDS: CEROVITE ADV FORMULA TAB PO SCH (09:44)
[2021-10-10] MEDS: POLYETHYLENE (MIRALAX) 17 GM PACK PO SCH (09:44)
[2021-10-10] MEDS: ROSUVASTATIN CALCIUM 20 MG TAB PO SCH (09:48)
[2021-10-10] MEDS: POTASSIUM CHLORIDE CRTAB 20 MEQ TABCR PO SCH ×2 (09:48→17:37)
[2021-10-10] MEDS: UMECLIDINIUM BROMIDE 62.5MCG/BLISTER 7 PUFFS/INHALER INH SCH ×2 (09:49→09:54)
[2021-10-10] MEDS: TRIAMCINOLONE ACET 0.025% CR 15 GM TUBE TOP SCH ×2 (09:49→22:22)
--- NOTE | 2021-10-10 10:23 | Pharmacy Report ---
Pharmacy Glycemic Short Note 2 - Date of Service October 10, 2021 - Glycemic Short BSG Results (Last 24 hours): 10/09/21 10/09/21 10/09/21 11:23 16:48 20:31 Glucose POC Glucose 218 H 201 H 178 H 10/10/21 07:31 Glucose 191 H POC Glucose OUTPATIENT ANTIDIABETIC REGIMEN: * Lantus 68 units SC BID * NovoLog 10 units SC TID * Trulicity 3 mg SC once weekly * HbA1c = 13.5% (09/23/21) ASSESSMENT: 10/10 * Patient's BSGs yesterday were [phone] mg/dL. Fasting today 191 mg/dL. * Increase basal by 10% to 35 units BID. * Continue Novolog as BSGs did trend downwards yesterday. 10/09/21 * BSGs yesterday were [phone] mg/dL. Patient received 111 units of insulin (80 units of basal and 31 units of bolus). * Patient's Lantus was increased by 33% yesterday due to elevated fastings. During this hospitalization, there is excellent data with 50 units of basal. Elevated fastings most likely due to lower basal rates a couple of days prior. Decrease to 30 units BID. * Continue Novolog as BSGs stayed stable. 10/08 * Patient received 86 units in past 24 hours, 60 units basal, home regimen also basal heavy, pt consumes small amounts of CHO * Increase Lantus, fasting BSG 198mg/dl, CR tightened yesterday, no further changes at this time 10/06 * Patient received total of 78 units of insulin yesterday, of which 50 units were basal insulin * Fasting BSG 161 mg/dL - plan to continue same basal insulin, as dose increased just yesterday * Continue same CF/CR 10/04 * BSGs remain well-controlled, 84, 84, 103, and 110 mg/dL yesterday, fasting BSG of 149 mg/dL * Received 52 units of insulin (30 units of Lantus and 22 units of prandial/correctional bolus) * Will plan to switch back to BID Lantus to correlate with outpatient regimen * Will continue slightly loosened Novolog parameters from yesterday * No change to stressors 10/03 * BSGs reasonably well-controlled yesterday, ranging 109-187 mg/dL * BSGs trending lower than usual today with fasting BSG of 84 mg/dL this morning * Will decrease Lantus dose today and slightly loosen Novolog carb coverage 09/28: * Received 61 units of insulin yesterday (50 units Lantus + 11 units Novolog). BSGs were acceptable: [phone] mg/dL * Fasting BSG of 138 mg/dL this AM is at goal. No change in insulin regimen necessary today. PLAN FOR INPATIENT GLYCEMIC CONTROL: * Hold outpatient Trulicity * Basal insulin - increase * Lantus 35 units SC BID * Bolus insulin - continue * NovoLog per scale ACHS or Q6hrs while NPO * Goal Range: Low 110 mg/dL - High 140 mg/dL * Correction Factor: 12 mg/dL/unit * Nutritional / Prandial insulin per carb ratio of 1 unit per 4 grams CHO consumed PLAN FOR DISCHARGE: * HbA1c of 13.5% is well above goal of less than 8% for this patient. Recommend referral to otr flatbed [employer] truck driver or MTM clinic for help with managing T2DM. * Reported outpatient insulin doses are significantly higher than inpatient insulin needs currently * DM educator met with patient and patient reports eating very little at home. Would recommend continuing similar insulin doses as she is currently receiving during hospital stay. * Reduce Lantus to 30-40 units SC BID - this is a ~50% reduction in home dose * Continue Novolog 10 units TIDM and home Trulicity * Contact provider if BSGs consistently above 200 mg/dL or below 90 mg/dL.
[2021-10-10] MEDS: INSULIN ASPART PER UNIT SC SCH ×4 (10:30→20:51)
[2021-10-10] MEDS: INSULIN GLARGINE SOLOSTAR 100 UNITS/ML 3 ML PEN SC SCH ×2 (10:31→20:51)
--- NOTE | 2021-10-10 16:04 | Hospitalist Progress Note ---
Date of Service October 10, 2021 Assessment & Plan (1) Periprosthetic fracture around internal prosthetic left knee joint: Plan: 76yo F with a PMH of DM II, asthma, severe sleep apnea on 3L [place] HS, combined systolic and diastolic heart failure, h/o complete heart block s/p pacemaker placement, LBBB, PVD, CKD III, dyslipidemia, morbid obesity and other medical problems as below who presents from home after fall. She is being managed for the following: (1) Periprosthetic fracture around internal prosthetic left knee joint: Plan: Tibia/fibula XRwith fracture of the proximal tibia at the distal aspect of the tibial component of the knee arthroplasty. There is associated soft tissue swelling Left hip x-ray showedno evidence of acute osseous injury. Ortho Recommended conservative management and hinged knee brace with nonweightbearing If the bracing would fail for any reason, the patient may require ORIF versus a revision tibial component to be placed. If surgery required, patient will need to be transferred to tertiary care facility to get it done Orthotic consult placed by Ortho to measure for the brace Hinged knee brace to be on at all times. May loosen for bathing. No ROM of knee at this time. pain control improving with PRN Tramadol and [place] continue PT/OT outpatient ff up with [facility] #. COVID-19 Patient has been boosted against Covid. Home oxygen is 3 L as needed and at bedtime. Patient was tested for Covid test prior to discharge to SNF on 10/08, came back positive Patient requiring baseline oxygen, afebrile, respiratory mason stable. Patient having diarrhea, patient not sure whether it is worsening or getting better. We will continue to follow. We will hold onto a steroid or remdesivir at this point, closely monitor, incentive spirometer Given diarrhea, will increase fluid restriction from 1.5 to 2 L, hold p.m. Lasix dose and evaluate for Lasix tomorrow a.m. Monitor BMP. (2) UTI (urinary tract infection): (3) Leukocytosis: Plan: Urine culture grew E. coli pansensitive Status post treatment. (4) Uncontrolled type II diabetes mellitus: Plan: Most recent hemoglobin A1c 15.5 on 09/23/2021. A1c this admission 13.5. Currently on Lantus and insulin sliding scale during the hospital course Home regimen includes Lantus 68 unit BID, 10 [facility]IDM [facility] Continue monitor blood sugar (5) Hyperkalemia: -Resolved (6) Combined congestive systolic and diastolic heart failure: Plan: IV Lasix titrated for volume overload transitioned to usual Lasix 40mg BID per nephro crea 1.6 monitor volume status closely (7) CKD (chronic kidney disease), stage III: Plan: ELOY on CKD stage III, baseline creatinine around 1.6-1.8 Admitting creatinine 3.08, resolved. #. Other chronic medical conditions: HTN, asthma, complete heart block, HLD, PVD, morbid obesity Continue with/resume home meds as and when appropriate. DVT Ppx: on heparin subcu Code status: FULL Dispo: Continue monitor closely Medically stable. Awaiting placement. Admission and Anticipated Discharge Date Admission Date: September 22, 2021 Subjective Patient seen and examined at bedside for periprosthetic fracture around internal prosthetic left knee joint and incidental diagnosis of covid on 10/08. Patient was lying in bed, on 2 L nasal cannula oxygen, NAD, multiple diarrheas overnight and in the morning per RN. Patient reports knee pain under control with pain medications. Patient not sure how her diarrhea is progressing. Patient not liking CC2/HH diet and is requesting to change the diet. Denies fever/chills/headache/chest pain/palpitation/other review of symptoms. Physical Exam Physical Exam: GENERAL: Alert and oriented x3. NAD, on 2L. HEENT: No pallor, no icterus. Pupils equal, round and reactive to light. Oral mucosa moist. NECK: No JVD, no neck masses. HEART: S1 and S2 heard. Regular rate and rhythm. No murmur, no gallop. RESPIRATORY SYSTEM: Normal AP diameter. No accessory muscle use. No wheezing, no crackles. ABDOMEN: Soft, bowel sounds present, rt side tendernss, no distention. CENTRAL NERVOUS SYSTEM: No facial droop. Speech is clear. Obeys simple commands. Moves extremities. EXTREMITIES: RLE trace edema, LLE with splint and chronic skin changes. no erythema seen. Urinary catheter with light yellow urine collection noted. Results & Data Results & Data ([facility]) Vital Signs (Past 12 Hours) Vital Signs Temp Pulse Resp BP Pulse Ox 10/10/21 15:31 36.7 C 95 H 14 135/81 94 10/10/21 06:53 36.8 C 92 H 24 128/71 93
[2021-10-10] MEDS: carvediloL 12.5 MG TAB PO SCH (20:51)
[2021-10-11] MEDS: SODIUM CHLORIDE 0.65% NA SOLN 45 ML (OCEAN) SCH ×6 (03:50→21:40)
[2021-10-11] MEDS: HEPARIN SOD 5,000 UNIT/0.5 ML VIAL SQ SCH ×3 (06:06→21:28)
[2021-10-11 08:22] LABS: Hematocrit (blood only) 35.9 % (37-47); Hemoglobin 11.1 g/dL (12.0-16.0); Mean Corpuscular Hemoglobin 30.3 pg (25-34); Mean Corpuscular Hgb Conc 30.9 g/dL (32-36); Mean Corpuscular Volume 98.1 fL (80-100); Mean Platelet Volume 9.9 fL (7.4-10.4); Platelet Count 373 K/uL (130-400); RDW Coefficient of Variation 15.6 % (11.5-14.5); RDW Standard Deviation 55.1 fL (36.4-46.3); Red Blood Count 3.66 M/uL (4.2-5.4); White Blood Count 7.71 K/uL (4.8-10.8)
[2021-10-11 08:46] LABS: BUN Creatinine Ratio 19.8 (10-20); Calcium 9.6 mg/dl (8.5-10.1); Creatinine Clr Calc Pharmacy 36.5 ml/min; Est GFR (African American) 34.1 ml/min; Est GFR (Non-African American) 29.4 ml/min; Magnesium 1.9 mg/dl (1.7-2.4); Potassium 4.5 mmol/L (3.5-5.1)
[2021-10-11] MEDS ORDERED: INSULIN GLARGINE SOLOSTAR 100 UNITS/ML 3 ML PEN SC SCH (09:00)
[2021-10-11] MEDS: INSULIN ASPART PER UNIT SC SCH ×4 (09:01→21:49)
[2021-10-11] MEDS: ROSUVASTATIN CALCIUM 20 MG TAB PO SCH (09:13)
[2021-10-11] MEDS: CLOPIDOGREL BISULFATE 75 MG TAB PO SCH (09:13)
[2021-10-11] MEDS: CYANOCOBALAMIN (B-12) 100 MCG TABLET PO SCH (09:14)
[2021-10-11] MEDS: LIDOCAINE 5% 1 PATCH TD SCH (09:14)
[2021-10-11] MEDS: CEROVITE ADV FORMULA TAB PO SCH (09:14)
[2021-10-11] MEDS: MONTELUKAST SODIUM 10 MG TABLET PO SCH (09:14)
[2021-10-11] MEDS: BUDESONIDE AQ (RHINOCORT AQ) NASAL SPRAY 32 MCG NAE SCH (09:15)
[2021-10-11] MEDS: UMECLIDINIUM BROMIDE 62.5MCG/BLISTER 7 PUFFS/INHALER INH SCH (09:15)
[2021-10-11] MEDS: ASPIRIN 81 MG ECTAB PO SCH (09:15)
[2021-10-11] MEDS: POLYETHYLENE (MIRALAX) 17 GM PACK PO SCH (09:16)
[2021-10-11] MEDS: DICLOFENAC SOD 1% GEL 100 GM TUBE EXT SCH ×4 (09:16→21:25)
[2021-10-11] MEDS: TRIAMCINOLONE ACET 0.025% CR 15 GM TUBE TOP SCH ×2 (09:17→21:40)
--- NOTE | 2021-10-11 09:21 | Pharmacy Report ---
Pharmacy Glycemic Short Note 2 - Date of Service October 11, 2021 - Glycemic Short BSG Results (Last 24 hours): 10/10/21 10/10/21 10/10/21 11:57 16:04 20:18 Glucose POC Glucose 299 H 151 H 171 H 10/11/21 10/11/21 07:26 07:31 Glucose 227 H POC Glucose 221 H OUTPATIENT ANTIDIABETIC REGIMEN: * Lantus 68 units SC BID * NovoLog 10 units SC TID * Trulicity 3 mg SC once weekly * HbA1c = 13.5% (09/23/21) ASSESSMENT: 10/11 * Patient's BSGs were [phone] mg/dL and fasting today is 221 mg/dL. * Patient received 113 units of insulin yesterday (70 units of basal and 43 units of bolus). * Fasting trending upwards so increase insulin by 15% to 80 units daily. * Lunch BSG significantly elevated because it was taken < 2 hours after breakfast insulin given. Continue Novolog. 10/10 * Patient's BSGs yesterday were [phone] mg/dL. Fasting today 191 mg/dL. * Increase basal by 10% to 35 units BID. * Continue Novolog as BSGs did trend downwards yesterday. 10/09/21 * BSGs yesterday were [phone] mg/dL. Patient received 111 units of insulin (80 units of basal and 31 units of bolus). * Patient's Lantus was increased by 33% yesterday due to elevated fastings. During this hospitalization, there is excellent data with 50 units of basal. Elevated fastings most likely due to lower basal rates a couple of days prior. Decrease to 30 units BID. * Continue Novolog as BSGs stayed stable. 10/08 * Patient received 86 units in past 24 hours, 60 units basal, home regimen also basal heavy, pt consumes small amounts of CHO * Increase Lantus, fasting BSG 198mg/dl, CR tightened yesterday, no further changes at this time 10/06 * Patient received total of 78 units of insulin yesterday, of which 50 units were basal insulin * Fasting BSG 161 mg/dL - plan to continue same basal insulin, as dose increased just yesterday * Continue same CF/CR 10/04 * BSGs remain well-controlled, 84, 84, 103, and 110 mg/dL yesterday, fasting BSG of 149 mg/dL * Received 52 units of insulin (30 units of Lantus and 22 units of prandial/correctional bolus) * Will plan to switch back to BID Lantus to correlate with outpatient regimen * Will continue slightly loosened Novolog parameters from yesterday * No change to stressors 10/03 * BSGs reasonably well-controlled yesterday, ranging 109-187 mg/dL * BSGs trending lower than usual today with fasting BSG of 84 mg/dL this morning * Will decrease Lantus dose today and slightly loosen Novolog carb coverage 09/28: * Received 61 units of insulin yesterday (50 units Lantus + 11 units Novolog). BSGs were acceptable: [phone] mg/dL * Fasting BSG of 138 mg/dL this AM is at goal. No change in insulin regimen necessary today. PLAN FOR INPATIENT GLYCEMIC CONTROL: * Hold outpatient Trulicity * Basal insulin - increase * Lantus 40 units SC BID * Bolus insulin - continue * NovoLog per scale ACHS or Q6hrs while NPO * Goal Range: Low 110 mg/dL - High 140 mg/dL * Correction Factor: 12 mg/dL/unit * Nutritional / Prandial insulin per carb ratio of 1 unit per 4 grams CHO consumed PLAN FOR DISCHARGE: * HbA1c of 13.5% is well above goal of less than 8% for this patient. Recommend referral to job service specialist or MTM clinic for help with managing T2DM. * Reported outpatient insulin doses are significantly higher than inpatient insulin needs currently * DM educator met with patient and patient reports eating very little at home. Would recommend continuing similar insulin doses as she is currently receiving during hospital stay. * Reduce Lantus to 30-40 units SC BID - this is a ~50% reduction in home dose * Continue Novolog 10 units TIDM and home Trulicity * Contact provider if BSGs consistently above 200 mg/dL or below 90 mg/dL.
[2021-10-11] MEDS: POTASSIUM CHLORIDE CRTAB 20 MEQ TABCR PO SCH ×2 (11:20→14:58)
[2021-10-11] MEDS: carvediloL 12.5 MG TAB PO SCH ×2 (11:20→21:26)
--- NOTE | 2021-10-11 16:20 | Hospitalist Progress Note ---
Date of Service October 11, 2021 Assessment & Plan (1) Periprosthetic fracture around internal prosthetic left knee joint: Plan: 76yo F with a PMH of DM II, asthma, severe sleep apnea on 3L NC HS, combined systolic and diastolic heart failure, h/o complete heart block s/p pacemaker placement, LBBB, PVD, CKD III, dyslipidemia, morbid obesity and other medical problems as below who presents from home after fall. She is being managed for the following: (1) Periprosthetic fracture around internal prosthetic left knee joint: Plan: Tibia/fibula XRwith fracture of the proximal tibia at the distal aspect of the tibial component of the knee arthroplasty. There is associated soft tissue swelling Left hip x-ray showedno evidence of acute osseous injury. Ortho Recommended conservative management and hinged knee brace with nonweightbearing If the bracing would fail for any reason, the patient may require ORIF versus a revision tibial component to be placed. If surgery required, patient will need to be transferred to tertiary care facility to get it done Orthotic consult placed by Ortho to measure for the brace Hinged knee brace to be on at all times. May loosen for bathing. No ROM of knee at this time. pain control improving with PRN Tramadol and [place] continue PT/OT outpatient ff up with [facility] #. COVID-19 Patient has been boosted against Covid. Home oxygen is 3 L as needed and at bedtime. Patient was tested for Covid test prior to discharge to SNF on 10/08, came back positive Patient requiring baseline oxygen, afebrile, respiratory mason stable. Patient having diarrhea, patient not sure whether it is worsening or getting better. We will continue to follow. We will hold onto a steroid or remdesivir at this point, closely monitor, incentive spirometer Given diarrhea resolving, will decrease fluid restriction from 2 L to 1.8 L today, and back to 1.5 L eventually. Continue with Lasix dose as trace edema noted today. Monitor BMP. (2) UTI (urinary tract infection): (3) Leukocytosis: Plan: Urine culture grew E. coli pansensitive Status post treatment. (4) Uncontrolled type II diabetes mellitus: Plan: Most recent hemoglobin A1c 15.5 on 09/23/2021. A1c this admission 13.5. Currently on Lantus and insulin sliding scale during the hospital course Home regimen includes Lantus 68 unit BID, 10 unit TIDM [facility] Continue monitor blood sugar (5) Hyperkalemia: -Resolved (6) Combined congestive systolic and diastolic heart failure: Plan: IV Lasix titrated for volume overload transitioned to usual Lasix 40mg BID per nephro crea 1.6 monitor volume status closely (7) CKD (chronic kidney disease), stage III: Plan: ELOY on CKD stage III, baseline creatinine around 1.6-1.8 Admitting creatinine 3.08, resolved. #. Other chronic medical conditions: HTN, asthma, complete heart block, HLD, PVD, morbid obesity Continue with/resume home meds as and when appropriate. DVT Ppx: on heparin subcu Code status: FULL Dispo: Continue monitor closely Medically stable. Awaiting placement. Admission and Anticipated Discharge Date Admission Date: September 22, 2021 Subjective Patient seen and examined at bedside for periprosthetic fracture around internal prosthetic left knee joint and incidental diagnosis of covid on 10/08. Patient was lying in bed, on RA, NAD, no diarrhea since yesterday per patient. Patient reports knee pain under control with pain medications. Patient not liking CC2/HH diet and is requesting to change the diet again --> made some changes. Denies fever/chills/headache/chest pain/palpitation/other review of symptoms. Physical Exam Physical Exam: GENERAL: Alert and oriented x3. NAD, on RA HEENT: No pallor, no icterus. Pupils equal, round and reactive to light. Oral mucosa moist. NECK: No JVD, no neck masses. HEART: S1 and S2 heard. Regular rate and rhythm. No murmur, no gallop. RESPIRATORY SYSTEM: Normal AP diameter. No accessory muscle use. No wheezing, no crackles. ABDOMEN: Soft, bowel sounds present, rt side tendernss, no distention. CENTRAL NERVOUS SYSTEM: No facial droop. Speech is clear. Obeys simple commands. Moves extremities. EXTREMITIES: RLE trace edema, LLE with splint and chronic skin changes. no eryt adria seen. Urinary catheter with light yellow urine collection noted.
[2021-10-11] MEDS: traMADol HCL 50 MG TABLET PO PRN ×2 (18:58→23:53)
[2021-10-11] MEDS: FUROSEMIDE 40 MG TAB PO SCH (21:27)
[2021-10-11] MEDS: INSULIN GLARGINE 100 UNIT/ML VIAL SC SCH (21:49)
[2021-10-12] MEDS: SODIUM CHLORIDE 0.65% NA SOLN 45 ML (OCEAN) SCH ×6 (04:57→21:02)
[2021-10-12] MEDS: HEPARIN SOD 5,000 UNIT/0.5 ML VIAL SQ SCH ×3 (06:45→21:03)
[2021-10-12 07:48] LABS: BUN Creatinine Ratio 18.7 (10-20); Calcium 9.6 mg/dl (8.5-10.1); Creatinine Clr Calc Pharmacy 36.8 ml/min; Est GFR (African American) 34.3 ml/min; Est GFR (Non-African American) 29.6 ml/min; Potassium 4.4 mmol/L (3.5-5.1)
[2021-10-12] MEDS: ROSUVASTATIN CALCIUM 20 MG TAB PO SCH (08:03)
[2021-10-12] MEDS: CEROVITE ADV FORMULA TAB PO SCH (08:04)
[2021-10-12] MEDS: MONTELUKAST SODIUM 10 MG TABLET PO SCH (08:04)
[2021-10-12] MEDS: POTASSIUM CHLORIDE CRTAB 20 MEQ TABCR PO SCH ×2 (08:04→17:43)
[2021-10-12] MEDS: FUROSEMIDE 40 MG TAB PO SCH ×2 (08:05→16:38)
[2021-10-12] MEDS: CYANOCOBALAMIN (B-12) 100 MCG TABLET PO SCH (08:05)
[2021-10-12] MEDS: carvediloL 12.5 MG TAB PO SCH ×2 (08:06→21:04)
[2021-10-12] MEDS: ASPIRIN 81 MG ECTAB PO SCH (08:06)
[2021-10-12] MEDS: LIDOCAINE 5% 1 PATCH TD SCH (08:06)
[2021-10-12] MEDS: UMECLIDINIUM BROMIDE 62.5MCG/BLISTER 7 PUFFS/INHALER INH SCH (08:07)
[2021-10-12] MEDS: BUDESONIDE AQ (RHINOCORT AQ) NASAL SPRAY 32 MCG NAE SCH (08:08)
[2021-10-12] MEDS: TRIAMCINOLONE ACET 0.025% CR 15 GM TUBE TOP SCH ×2 (08:08→20:59)
[2021-10-12] MEDS: POLYETHYLENE (MIRALAX) 17 GM PACK PO SCH (08:08)
[2021-10-12] MEDS: CLOPIDOGREL BISULFATE 75 MG TAB PO SCH (08:09)
[2021-10-12] MEDS: DICLOFENAC SOD 1% GEL 100 GM TUBE EXT SCH ×4 (08:09→19:49)
[2021-10-12] MEDS: INSULIN GLARGINE 100 UNIT/ML VIAL SC SCH ×2 (08:22→21:33)
[2021-10-12] MEDS: INSULIN ASPART PER UNIT SC SCH ×4 (09:04→21:32)
[2021-10-12] MEDS: HYDROCODONE/ACETAMOPHEN 5/325MG TAB PO PRN (09:07)
[2021-10-12] MEDS: traMADol HCL 50 MG TABLET PO PRN ×2 (12:26→19:48)
--- NOTE | 2021-10-12 13:38 | Pharmacy Report ---
Pharmacy Glycemic Short Note 2 - Date of Service October 12, 2021 - Glycemic Short BSG Results (Last 24 hours): 10/11/21 10/11/21 10/12/21 17:34 21:22 06:50 Glucose 136 H POC Glucose 184 H 162 H 10/12/21 10/12/21 07:26 12:14 Glucose POC Glucose 175 H 176 H OUTPATIENT ANTIDIABETIC REGIMEN: * Lantus 68 units SC BID * NovoLog 10 units SC TID * Trulicity 3 mg SC once weekly * HbA1c = 13.5% (09/23/21) ASSESSMENT: 10/12 * BSGs were [phone] mg/dL yesterday and fasting today is 175 on POC and blood draw is 136. * Patient received 114 units yesterday- 80 units basal and 34 units bolus. * Will keep current basal dose. Decreased CF to 10 and kept CHO ratio at 4. * Lunch BSG is 175 today, improvement from previous days. May need to continue to tighten CF/CR to obtain goal range BSG 10/11 * Patient's BSGs were [phone] mg/dL and fasting today is 221 mg/dL. * Patient received 113 units of insulin yesterday (70 units of basal and 43 units of bolus). * Fasting trending upwards so increase insulin by 15% to 80 units daily. * Lunch BSG significantly elevated because it was taken < 2 hours after breakfast insulin given. Continue Novolog. 10/10 * Patient's BSGs yesterday were [phone] mg/dL. Fasting today 191 mg/dL. * Increase basal by 10% to 35 units BID. * Continue Novolog as BSGs did trend downwards yesterday. 10/09/21 * BSGs yesterday were [phone] mg/dL. Patient received 111 units of insulin (80 units of basal and 31 units of bolus). * Patient's Lantus was increased by 33% yesterday due to elevated fastings. During this hospitalization, there is excellent data with 50 units of basal. Elevated fastings most likely due to lower basal rates a couple of days prior. Decrease to 30 units BID. * Continue Novolog as BSGs stayed stable. 10/08 * Patient received 86 units in past 24 hours, 60 units basal, home regimen also basal heavy, pt consumes small amounts of CHO * Increase Lantus, fasting BSG 198mg/dl, CR tightened yesterday, no further changes at this time 10/06 * Patient received total of 78 units of insulin yesterday, of which 50 units were basal insulin * Fasting BSG 161 mg/dL - plan to continue same basal insulin, as dose increased just yesterday * Continue same CF/CR 10/04 * BSGs remain well-controlled, 84, 84, 103, and 110 mg/dL yesterday, fasting BSG of 149 mg/dL * Received 52 units of insulin (30 units of Lantus and 22 units of prandial/correctional bolus) * Will plan to switch back to BID Lantus to correlate with outpatient regimen * Will continue slightly loosened Novolog parameters from yesterday * No change to stressors 10/03 * BSGs reasonably well-controlled yesterday, ranging 109-187 mg/dL * BSGs trending lower than usual today with fasting BSG of 84 mg/dL this morning * Will decrease Lantus dose today and slightly loosen Novolog carb coverage 09/28: * Received 61 units of insulin yesterday (50 units Lantus + 11 units Novolog). BSGs were acceptable: [phone] mg/dL * Fasting BSG of 138 mg/dL this AM is at goal. No change in insulin regimen necessary today. PLAN FOR INPATIENT GLYCEMIC CONTROL: * Hold outpatient Trulicity * Basal insulin - increase * Lantus 40 units SC BID * Bolus insulin - continue * NovoLog per scale ACHS or Q6hrs while NPO * Goal Range: Low 110 mg/dL - High 140 mg/dL * Correction Factor: 12 mg/dL/unit * Nutritional / Prandial insulin per carb ratio of 1 unit per 4 grams CHO consumed PLAN FOR DISCHARGE: * HbA1c of 13.5% is well above goal of less than 8% for this patient. Recommend referral to it account manager or MTM clinic for help with managing T2DM. * Reported outpatient insulin doses are significantly higher than inpatient i nsulin needs currently * DM educator met with patient and patient reports eating very little at home. Would recommend continuing similar insulin doses as she is currently receiving during hospital stay. * Reduce Lantus to 30-40 units SC BID - this is a ~50% reduction in home dose * Continue Novolog 10 units TIDM and home Trulicity * Contact provider if BSGs consistently above 200 mg/dL or below 90 mg/dL.
--- NOTE | 2021-10-12 20:13 | Hospitalist Progress Note ---
Date of Service October 12, 2021 Assessment & Plan (1) Periprosthetic fracture around internal prosthetic left knee joint: Plan: 76yo F with a PMH of DM II, asthma, severe sleep apnea on 3L NC HS, combined systolic and diastolic heart failure, h/o complete heart block s/p pacemaker placement, LBBB, PVD, CKD III, dyslipidemia, morbid obesity and other medical problems as below who presents from home after fall. She is being managed for the following: (1) Periprosthetic fracture around internal prosthetic left knee joint: Plan: Tibia/fibula XRwith fracture of the proximal tibia at the distal aspect of the tibial component of the knee arthroplasty. There is associated soft tissue swelling Left hip x-ray showedno evidence of acute osseous injury. Ortho Recommended conservative management and hinged knee brace with nonweightbearing If the bracing would fail for any reason, the patient may require ORIF versus a revision tibial component to be placed. If surgery required, patient will need to be transferred to tertiary care facility to get it done Hinged knee brace to be on at all times. May loosen for bathing. No ROM of knee at this time. pain control improving with PRN Tramadol and [place] continue PT/OT outpatient ff up with [facility] #. COVID-19 Patient has been boosted against Covid. Home oxygen is 3 L as needed and at bedtime. Patient was tested for Covid test prior to discharge to SNF on 10/08, came back positive Patient requiring baseline oxygen, afebrile, respiratory mason stable. Patient having diarrhea, patient not sure whether it is worsening or getting better. We will continue to follow. We will hold onto a steroid or remdesivir at this point, closely monitor, incentive spirometer (2) UTI (urinary tract infection): (3) Leukocytosis: Plan: Urine culture grew E. coli pansensitive Status post treatment. (4) Uncontrolled type II diabetes mellitus: Plan: Most recent hemoglobin A1c 15.5 on 09/23/2021. A1c this admission 13.5. Currently on Lantus and insulin sliding scale during the hospital course Home regimen includes Lantus 68 unit BID, 10 unit TIDM [facility], [facility] Continue monitor blood sugar. MTM clinic upon DC. assistant health educator consulted. (5) Hyperkalemia: -Resolved (6) Combined congestive systolic and diastolic heart failure: Plan: IV Lasix titrated for volume overload transitioned to usual Lasix 40mg BID per nephro crea at baseline monitor volume status closely (7) CKD (chronic kidney disease), stage III: Plan: ELOY on CKD stage III, baseline creatinine around 1.6-1.8 Admitting creatinine 3.08, resolved. #. Other chronic medical conditions: HTN, asthma, complete heart block, HLD, PVD, morbid obesity Continue with/resume home meds as and when appropriate. DVT Ppx: on heparin subcu Code status: FULL Dispo: Continue monitor closely Medically stable. Awaiting placement. Patient will need follow-up with [facility] clinic for her diabetes as an outpatient. Admission and Anticipated Discharge Date Admission Date: September 22, 2021 Subjective Patient seen and examined at bedside for periprosthetic fracture around internal prosthetic left knee joint and incidental diagnosis of covid on 10/08. Patient was lying in bed, on RA, NAD, no diarrhea per pt. Patient reports knee pain under control with pain medications. Patient does not want to follow dietary restriction given her diabetes uncontrolled, and was wondering why her blood sugar level was high, had to explain in detail about how A1c reflects average blood sugar level for last 3 months and how her blood sugar has been very uncontrolled as an outpatient. Advised her to stick with dietary restriction for proper control of diabetes and it will be an ongoing process rather than an immediate effect while in hospital. Will consult public health educator. Patient wishes to follow-up with [facility] diabetic clinic as an outpatient after discussion. Denies fever/chills/headache/chest pain/palpitation/other review of symptoms. Physical Exam Physical Exam: GENERAL: Alert and oriented x3. NAD, on RA HEENT: No pallor, no icterus. Pupils equal, round and reactive to light. Oral mucosa moist. NECK: No JVD, no neck masses. HEART: S1 and S2 heard. Regular rate and rhythm. No murmur, no gallop. RESPIRATORY SYSTEM: Normal AP diameter. No accessory muscle use. No wheezing, no crackles. ABDOMEN: Soft, bowel sounds present, rt side tendernss, no distention. CENTRAL NERVOUS SYSTEM: No facial droop. Speech is clear. Obeys simple commands. Moves extremities. EXTREMITIES: RLE trace edema, LLE with splint and chronic skin changes. no erythema seen. Urinary catheter with light yellow urine collection noted. Results & Data Results & Data ([facility]) Vital Signs (Past 12 Hours) Vital Signs Temp Pulse Resp BP Pulse Ox Pulse Ox 10/12/21 16:32 36.4 C L 60 18 106/56 L 98 10/12/21 09:22 93
[2021-10-13] MEDS: SODIUM CHLORIDE 0.65% NA SOLN 45 ML (OCEAN) SCH ×6 (01:35→21:10)
[2021-10-13] MEDS: HEPARIN SOD 5,000 UNIT/0.5 ML VIAL SQ SCH ×3 (05:50→21:09)
[2021-10-13] MEDS: INSULIN ASPART PER UNIT SC SCH ×4 (08:43→21:34)
[2021-10-13] MEDS: INSULIN GLARGINE 100 UNIT/ML VIAL SC SCH (08:47)
[2021-10-13] MEDS ORDERED: INSULIN GLARGINE 100 UNIT/ML VIAL SC ONE (09:15)
--- NOTE | 2021-10-13 09:19 | Pharmacy Report ---
Pharmacy Glycemic Short Note 2 - Date of Service October 13, 2021 - Glycemic Short BSG Results (Last 24 hours): 10/12/21 10/12/21 10/12/21 12:14 16:52 20:48 POC Glucose 176 H 188 H 172 H 10/13/21 08:01 POC Glucose 197 H OUTPATIENT ANTIDIABETIC REGIMEN: * Lantus 68 units SC BID * NovoLog 10 units SC TID * Trulicity 3 mg SC once weekly * HbA1c = 13.5% (09/23/21) ASSESSMENT: 10/13 * Stressors stable - T2DM diet * AM fasting BSG elevated and trending up. Will increase Lantus * Post-prandial BSG's all >170 mg/dL yesterday. Will tighten CHO ratio 10/12 * BSGs were [phone] mg/dL yesterday and fasting today is 175 on POC and blood draw is 136. * Patient received 114 units yesterday- 80 units basal and 34 units bolus. * Will keep current basal dose. Decreased CF to 10 and kept CHO ratio at 4. * Lunch BSG is 175 today, improvement from previous days. May need to continue to tighten CF/CR to obtain goal range BSG 10/11 * Patient's BSGs were [phone] mg/dL and fasting today is 221 mg/dL. * Patient received 113 units of insulin yesterday (70 units of basal and 43 units of bolus). * Fasting trending upwards so increase insulin by 15% to 80 units daily. * Lunch BSG significantly elevated because it was taken < 2 hours after breakfast insulin given. Continue Novolog. 10/10 * Patient's BSGs yesterday were [phone] mg/dL. Fasting today 191 mg/dL. * Increase basal by 10% to 35 units BID. * Continue Novolog as BSGs did trend downwards yesterday. PLAN FOR INPATIENT GLYCEMIC CONTROL: * Hold outpatient Trulicity * Basal insulin - increase * Lantus 30-50 units SC BID, depending on BSG * Bolus insulin - tighten * NovoLog per scale ACHS or Q6hrs while NPO * Goal Range: Low 110 mg/dL - High 140 mg/dL * Correction Factor: 10 mg/dL/unit * Nutritional / Prandial insulin per carb ratio of 1 unit per 3 grams CHO consumed PLAN FOR DISCHARGE: * HbA1c of 13.5% is well above goal of less than 8% for this patient. Recommend referral to field hauler or MTM clinic for help with managing T2DM. * DM educator met with patient and patient reports eating very little at home.
[2021-10-13] MEDS: MONTELUKAST SODIUM 10 MG TABLET PO SCH (09:40)
[2021-10-13] MEDS: CLOPIDOGREL BISULFATE 75 MG TAB PO SCH (09:41)
[2021-10-13] MEDS: ROSUVASTATIN CALCIUM 20 MG TAB PO SCH (09:41)
[2021-10-13] MEDS: CYANOCOBALAMIN (B-12) 100 MCG TABLET PO SCH (09:42)
[2021-10-13] MEDS: carvediloL 12.5 MG TAB PO SCH ×2 (09:42→21:07)
[2021-10-13] MEDS: ASPIRIN 81 MG ECTAB PO SCH (09:43)
[2021-10-13] MEDS: CEROVITE ADV FORMULA TAB PO SCH (09:43)
[2021-10-13] MEDS: FUROSEMIDE 40 MG TAB PO SCH ×2 (09:43→17:17)
[2021-10-13] MEDS: DICLOFENAC SOD 1% GEL 100 GM TUBE EXT SCH ×4 (09:44→21:07)
[2021-10-13] MEDS: BUDESONIDE AQ (RHINOCORT AQ) NASAL SPRAY 32 MCG NAE SCH (09:44)
[2021-10-13] MEDS: TRIAMCINOLONE ACET 0.025% CR 15 GM TUBE TOP SCH ×2 (09:44→21:09)
[2021-10-13] MEDS: traMADol HCL 50 MG TABLET PO PRN (09:47)
[2021-10-13] MEDS: POTASSIUM CHLORIDE CRTAB 20 MEQ TABCR PO SCH ×2 (09:48→17:17)
[2021-10-13] MEDS: POLYETHYLENE (MIRALAX) 17 GM PACK PO SCH (09:49)
[2021-10-13] MEDS: UMECLIDINIUM BROMIDE 62.5MCG/BLISTER 7 PUFFS/INHALER INH SCH (09:49)
[2021-10-13] MEDS: LIDOCAINE 5% 1 PATCH TD SCH (11:27)
--- NOTE | 2021-10-13 18:38 | Hospitalist Progress Note ---
Date of Service October 13, 2021 Assessment & Plan (1) Periprosthetic fracture around internal prosthetic left knee joint: Plan: 76yo F with a PMH of DM II, asthma, severe sleep apnea on 3L NC HS, combined systolic and diastolic heart failure, h/o complete heart block s/p pacemaker placement, LBBB, PVD, CKD III, dyslipidemia, morbid obesity and other medical problems as below who presents from home after fall. She is being managed for the following: (1) Periprosthetic fracture around internal prosthetic left knee joint: Plan: Tibia/fibula XRwith fracture of the proximal tibia at the distal aspect of the tibial component of the knee arthroplasty. There is associated soft tissue swelling Left hip x-ray showedno evidence of acute osseous injury. Ortho Recommended conservative management and hinged knee brace with nonweightbearing If the bracing would fail for any reason, the patient may require ORIF versus a revision tibial component to be placed. If surgery required, patient will need to be transferred to tertiary care facility to get it done Hinged knee brace to be on at all times. May loosen for bathing. No ROM of knee at this time. pain control improving with PRN Tramadol and [place] continue PT/OT outpatient ff up with [facility] #. COVID-19 Patient has been boosted against Covid. Home oxygen is 3 L as needed and at bedtime. Patient was tested for Covid test prior to discharge to SNF on 10/08, came back positive Patient requiring baseline oxygen, afebrile, respiratory mason stable. Patient having diarrhea, patient not sure whether it is worsening or getting better. We will continue to follow. We will hold onto a steroid or remdesivir at this point, closely monitor, incentive spirometer (2) UTI (urinary tract infection): (3) Leukocytosis: Plan: Urine culture grew E. coli pansensitive Status post treatment. (4) Uncontrolled type II diabetes mellitus: Plan: A1c this admission 13.5. Currently on Lantus and insulin sliding scale during the hospital course Home regimen includes Lantus 68 unit BID, 10 unit TIDM [facility] for gly[facility] management Continue monitor blood sugar. MTM clinic upon DC. tobacco prevention health educator consulted. (5) Hyperkalemia: -Resolved (6) Combined congestive systolic and diastolic heart failure: Plan: IV Lasix titrated for volume overload transitioned to usual Lasix 40mg BID per nephro crea at baseline monitor volume status closely (7) CKD (chronic kidney disease), stage III: Plan: ELOY on CKD stage III, baseline creatinine around 1.6-1.8 Admitting creatinine 3.08, resolved. #. Other chronic medical conditions: HTN, asthma, complete heart block, HLD, PVD, morbid obesity Continue with/resume home meds as and when appropriate. DVT Ppx: on heparin subcu Code status: FULL Dispo: Continue monitor closely Medically stable. Awaiting placement. Patient will need follow-up with [facility] clinic for her diabetes as an outpatient. Admission and Anticipated Discharge Date Admission Date: September 22, 2021 Subjective Patient seen and examined at bedside. lying comfortably in bed. States pain is controlled. Having BM. No respiratory issues, fever or chills. Physical Exam Physical Exam: GENERAL: Alert and oriented x3. NAD, on RA HEENT: No pallor, no icterus. Pupils equal, round and reactive to light. Oral mucosa moist. HEART: Normal heart sounds. Regular rate and rhythm. No murmur, no gallop. RESPIRATORY SYSTEM: Clear anteriorly. No wheezing, no crackles. ABDOMEN: Soft, bowel sounds present, rt side tendernss, no distention. CENTRAL NERVOUS SYSTEM: AAO, conversing well, non focal EXTREMITIES: RLE trace edema, LLE with splint and chronic skin changes. no erythema seen. Urinary catheter with light yellow urine collection noted. Results & Data Results & Data ([facility]) Vital Signs (Past 12 Hours) Vital Signs Temp Pulse Resp BP Pulse Ox 10/13/21 15:32 36.5 C 68 20 112/49 L 96 10/13/21 08:03 36.9 C 88 19 108/52 L 92 Laboratory Results Reviewed Diagnostic Findings Reviewed Medications Administered Current Inpatient Medications Acetaminophen (Acetaminophen 325 Mg Tab) 650 mg PO Q8H PRN PRN Reason: temp above 100.1 Stop: 10/29/21 09:01 Last Admin: 09/29/21 09:27 Dose: 650 mg Documented by: Hydrocodone Bitart/Acetaminophen (Hydrocodone/Acetamophen 5/325mg Tab) 1 tab PO Q6H PRN PRN Reason: Severe Pain Stop: 10/19/21 09:31 Last Admin: 10/12/21 09:07 Dose: 1 tab Documented by: Albuterol (Albuterol 0.083% Nebu Soln 3 Ml Vial) 2.5 mg INH Q4H PRN; Protocol PRN Reason: Shortness Of Breath Or Wheezing Stop: 10/22/21 21:13 Aspirin (Aspirin 81 Mg Ectab) 81 mg PO DAILY JEY Stop: 10/23/21 08:59 Last Admin: 10/13/21 09:43 Dose: 81 mg Documented by: Budesonide (Budesonide Aq (Rhinocort Aq) Nasal [place] 32 Mcg) 2 sprays DOROTHY DAILY JEY Stop: 10/23/21 08:59 Last Admin: 10/13/21 09:44 Dose: 2 sprays Documented by: Carvedilol (Carvedilol 12.5 Mg Tab) 12.5 mg PO BID JYE Stop: 10/22/21 21:13 Last Admin: 10/13/21 09:42 Dose: 12.5 mg Documented by: Clopidogrel Bisulfate (Clopidogrel Bisulfate 75 Mg Tab) 75 mg PO DAILY JEY Stop: 10/23/21 08:59 Last Admin: 10/13/21 09:41 Dose: 75 mg Documented by: Cyanocobalamin (Cyanocobalamin (Vitamin B-12) 100 Mcg Tablet) 100 mcg PO DAILY JEY Stop: 10/23/21 08:59 Last Admin: 10/13/21 09:42 Dose: 100 mcg Documented by: Dextrose (Dextrose 50% 50 Ml Syringe) 25 - 50 ml IV UD PRN; Protocol PRN Reason: Hypoglycemia Protocol Stop: 10/22/21 18:59 Diclofenac Sodium (Diclofenac Sod 1% Gel 100 Gm Tube) 4 gm EXT QID JEY Stop: 10/22/21 21:13 Last Admin: 10/13/21 17:17 Dose: 4 gm Documented by: Furosemide (Furosemide 40 Mg Tab) 40 mg PO BID17 JEY Stop: 11/04/21 16:59 Last Admin: 10/13/21 17:17 Dose: 40 mg Documented by: Gabapentin (Gabapentin 100 Mg Cap) 200 mg PO HS [facility] Stop: 10/22/21 21:44 Last Admin: 09/23/21 22:49 Dose: 200 mg Documented by: Gabapentin (Gabapentin 300 Mg Cap) 300 mg PO BID@0900,1400 JEY Stop: 10/23/21 08:59 Last Admin: 09/23/21 15:35 Dose: Not Given Documented by: Glucagon (Glucagon For Inj 1 Mg Vial) 1 mg IM UD PRN; Protocol PRN Reason: Hypoglycemia Protocol Stop: 10/22/21 18:59 Glucose (Glucose 40% Gel 15 Gm Tube) 15 - 30 gm PO UD PRN; Protocol PRN Reason: Hypoglycemia Protocol Stop: 10/22/21 18:59 Glucose (Glucose 10 Tabs/Tube) 4 - 8 tabs PO UD PRN; Protocol PRN Reason: Hypoglycemia Protocol Stop: 10/22/21 18:59 Heparin Sodium (Porcine) (Heparin Sod 5,000 Unit/0.5 Ml Vial) 5,000 units SQ Q8 [facility] Stop: 10/24/21 21:59 Last Admin: 10/13/21 13:45 Dose: 5,000 units Documented by: Insulin Aspart (Insulin Aspart Per Unit) 0 units SC ACHS [facility]; Protocol Stop: 11/06/21 07:29 Last Admin: 10/13/21 17:34 Dose: 17 units Documented by: Insulin Glargine (Insulin Glargine 100 Unit/Ml Vial) 0 units SC BID [facility]; Protocol Stop: 11/12/21 20:59 Lidocaine (Lidocaine 5% 1 Patch) 1 patch TD QAM [facility] Stop: 11/03/21 09:44 Last Admin: 10/13/21 11:27 Dose: 1 patch Documented by: Loratadine (Loratadine 10 Mg Tab) 10 mg PO DAILY PRN PRN Reason: Allergy Symptoms Stop: 10/22/21 21:13 Last Admin: 10/08/21 08:16 Dose: 10 mg Documented by: Magnesium Hydroxide (Magnesium Hydroxide Susp 30 Ml Udc) 30 ml PO Q6H PRN PRN Reason: Constipation Stop: 11/04/21 10:23 Miscellaneous (Carbohydrates For Hypoglycemia ) 15 - 30 gm PO UD PRN PRN Reason: Hypoglycemia Treatment Stop: 10/22/21 18:59 Miscellaneous (Remove Lidoderm Patch) 1 ea N/A DAILY@2100 [facility] Stop: 11/03/21 20:59 Last Admin: 10/12/21 21:02 Dose: 1 ea Documented by: Miscellaneous Information (Pharmacy Glycemic Mgmt Consult) 1 ea N/A UD PRN PRN Reason: Consult Stop: 10/22/21 18:08 Montelukast Sodium (Montelukast Sodium 10 Mg Tablet) 10 mg PO DAILY [facility] Stop: 10/23/21 08:59 Last Admin: 10/13/21 09:40 Dose: 10 mg Documented by: Multivitamins/Minerals (Cerovite Adv Formula Tab) 1 tab PO DAILY JEY Stop: 10/23/21 08:59 Last Admin: 10/13/21 09:43 Dose: 1 tab Documented by: Ondansetron HCl (Ondansetron Inj 2 Mg/Ml 2 Ml Vial) 4 mg IV Q6H PRN PRN Reason: Nausea Stop: 10/22/21 21:13 Polyethylene Glycol (Polyethylene (Miralax) 17 Gm Pack) 17 gm PO DAILY PRN PRN Reason: Constipation Stop: 10/22/21 21:13 Polyethylene Glycol (Polyethylene (Miralax) 17 Gm Pack) 17 gm PO DAILY JEY Stop: 11/05/21 08:59 Last Admin: 10/13/21 09:49 Dose: Not Given Documented by: Potassium Chloride (Potassium Chloride Crtab 20 Meq Tabcr) 20 meq PO BID17 [facility] Stop: 11/01/21 10:14 Last Admin: 10/13/21 17:17 Dose: 20 meq Documented by: Rosuvastatin Calcium (Rosuvastatin Calcium 20 Mg Tab) 40 mg PO DAILY [facility] Stop: 10/23/21 08:59 Last Admin: 10/13/21 09:41 Dose: 40 mg Documented by: Sodium Chloride (Sodium Chloride 0.65% Na Soln 45 Ml ([place])) 2 sprays NA Q4H [facility] Stop: 11/01/21 14:14 Last Admin: 10/13/21 17:18 Dose: 2 sprays Documented by: Tramadol HCl (Tramadol Hcl 50 Mg Tablet) 50 mg PO Q4H PRN PRN Reason: Moderate Pain Stop: 10/24/21 00:26 Last Admin: 10/13/21 09:47 Dose: 50 mg Documented by: Triamcinolone Acetonide (Triamcinolone Acet 0.025% Cr 15 Gm Tube) 1 appln TOP BID [facility] Stop: 10/22/21 21:13 Last Admin: 10/13/21 09:44 Dose: 1 appln Documented by: Umeclidinium Dane (Umeclidinium Dane 62.5mcg/Blister 7 Puffs/Inhaler) 1 puffs INH QAM [facility] Stop: 10/23/21 08:59 Last Admin: 10/13/21 09:49 Dose: Not Given Documented by:
[2021-10-13] MEDS ORDERED: INSULIN GLARGINE 100 UNIT/ML VIAL SC SCH (21:00)
[2021-10-14] MEDS: SODIUM CHLORIDE 0.65% NA SOLN 45 ML (OCEAN) SCH ×6 (01:22→21:16)
[2021-10-14] MEDS: HEPARIN SOD 5,000 UNIT/0.5 ML VIAL SQ SCH ×3 (05:57→21:12)
--- NOTE | 2021-10-14 07:08 | Communication Note ---
Date of Service: October 14, 2021 Recent chart events reviewed. Renal function on last labs remain stable > nephrology will formally sign off NEPHROLOGY DISCHARGE RECs -will need nephro follow up after discharge-weekly bmp to be ordered by renal nurse x 3 and f/u [facility] any neph doc 2-4 wks after d/c; pls d/w nephro at d/c dispo re resuming losartan and dosing
[2021-10-14] MEDS: DICLOFENAC SOD 1% GEL 100 GM TUBE EXT SCH ×4 (08:43→20:18)
[2021-10-14] MEDS: carvediloL 12.5 MG TAB PO SCH ×2 (08:44→20:18)
[2021-10-14] MEDS: CLOPIDOGREL BISULFATE 75 MG TAB PO SCH (08:44)
[2021-10-14] MEDS: TRIAMCINOLONE ACET 0.025% CR 15 GM TUBE TOP SCH ×2 (08:44→20:19)
[2021-10-14] MEDS: CEROVITE ADV FORMULA TAB PO SCH (08:45)
[2021-10-14] MEDS: MONTELUKAST SODIUM 10 MG TABLET PO SCH (08:45)
[2021-10-14] MEDS: ASPIRIN 81 MG ECTAB PO SCH (08:45)
[2021-10-14] MEDS: CYANOCOBALAMIN (B-12) 100 MCG TABLET PO SCH (08:46)
[2021-10-14] MEDS: LIDOCAINE 5% 1 PATCH TD SCH (08:46)
[2021-10-14] MEDS: ROSUVASTATIN CALCIUM 20 MG TAB PO SCH (08:46)
[2021-10-14] MEDS: BUDESONIDE AQ (RHINOCORT AQ) NASAL SPRAY 32 MCG NAE SCH (08:47)
[2021-10-14] MEDS: FUROSEMIDE 40 MG TAB PO SCH ×2 (08:47→17:06)
[2021-10-14] MEDS: UMECLIDINIUM BROMIDE 62.5MCG/BLISTER 7 PUFFS/INHALER INH SCH (08:51)
[2021-10-14] MEDS ORDERED: INSULIN GLARGINE SOLOSTAR 100 UNITS/ML 3 ML PEN SC SCH ×3 (09:00→21:00)
[2021-10-14] MEDS: POTASSIUM CHLORIDE CRTAB 20 MEQ TABCR PO SCH ×2 (09:03→17:06)
[2021-10-14] MEDS: POLYETHYLENE (MIRALAX) 17 GM PACK PO SCH (09:03)
[2021-10-14] MEDS: INSULIN ASPART PER UNIT SC SCH ×4 (09:08→21:03)
[2021-10-14] MEDS: traMADol HCL 50 MG TABLET PO PRN (10:21)
--- NOTE | 2021-10-14 13:42 | Pharmacy Report ---
Pharmacy Glycemic Short Note 2 - Date of Service October 14, 2021 - Glycemic Short BSG Results (Last 24 hours): 10/13/21 10/13/21 10/14/21 16:28 20:19 07:38 POC Glucose 119 H 159 H 185 H 10/14/21 11:28 POC Glucose 216 H OUTPATIENT ANTIDIABETIC REGIMEN: * Lantus 68 units SC BID * NovoLog 10 units SC TID * Trulicity 3 mg SC once weekly * HbA1c = 13.5% (09/23/21) ASSESSMENT: 10/14 * BSGs still somewhat labile ([phone]). AM BSG came down slightly to 185mg/dL, however still elevated. Evening BSGs yesterday came down into goal range. * T2DM diet ordered. Stressors stable. * AM Lantus dose increased to 55 today. Plan for 50 units tonight (5% increase in basal). Novolog loosened this AM d/t evening BSG 119 last night, however tightened again back to 10/3 this afternoon as BSGs trending up at lunch. 10/13 * Stressors stable - T2DM diet * AM fasting BSG elevated and trending up. Will increase Lantus * Post-prandial BSG's all >170 mg/dL yesterday. Will tighten CHO ratio 10/12 * BSGs were [phone] mg/dL yesterday and fasting today is 175 on POC and blood draw is 136. * Patient received 114 units yesterday- 80 units basal and 34 units bolus. * Will keep current basal dose. Decreased CF to 10 and kept CHO ratio at 4. * Lunch BSG is 175 today, improvement from previous days. May need to continue to tighten CF/CR to obtain goal range BSG 10/11 * Patient's BSGs were [phone] mg/dL and fasting today is 221 mg/dL. * Patient received 113 units of insulin yesterday (70 units of basal and 43 units of bolus). * Fasting trending upwards so increase insulin by 15% to 80 units daily. * Lunch BSG significantly elevated because it was taken < 2 hours after breakfast insulin given. Continue Novolog. 10/10 * Patient's BSGs yesterday were [phone] mg/dL. Fasting today 191 mg/dL. * Increase basal by 10% to 35 units BID. * Continue Novolog as BSGs did trend downwards yesterday. PLAN FOR INPATIENT GLYCEMIC CONTROL: * Hold outpatient Trulicity * Basal insulin - increase * Lantus 55 units AM/50 units HS * Bolus insulin * NovoLog per scale ACHS or Q6hrs while NPO * Goal Range: Low 110 mg/dL - High 140 mg/dL * Correction Factor: 10 mg/dL/unit * Nutritional / Prandial insulin per carb ratio of 1 unit per 3 grams CHO consumed PLAN FOR DISCHARGE: * HbA1c of 13.5% is well above goal of less than 8% for this patient. Recommend referral to tractor mechanic helper or MTM clinic for help with managing T2DM. * DM educator met with patient and patient reports eating very little at home.
--- NOTE | 2021-10-14 17:03 | Hospitalist Progress Note ---
Date of Service October 14, 2021 Assessment & Plan (1) Periprosthetic fracture around internal prosthetic left knee joint: Plan: 76yo F with a PMH of DM II, asthma, severe sleep apnea on 3L [place] HS, combined systolic and diastolic heart failure, h/o complete heart block s/p pacemaker placement, LBBB, PVD, CKD III, dyslipidemia, morbid obesity and other medical problems as below who presents from home after fall. She is being managed for the following: (1) Periprosthetic fracture around internal prosthetic left knee joint: Plan: Tibia/fibula XRwith fracture of the proximal tibia at the distal aspect of the tibial component of the knee arthroplasty. There is associated soft tissue swelling Left hip x-ray showedno evidence of acute osseous injury. Ortho Recommended conservative management and hinged knee brace with nonweightbearing If the bracing would fail for any reason, the patient may require ORIF versus a revision tibial component to be placed. If surgery required, patient will need to be transferred to tertiary care facility to get it done Hinged knee brace to be on at all times. May loosen for bathing. No ROM of knee at this time. pain control improving with PRN Tramadol and [place] continue PT/OT outpatient follow up with [facility] #. COVID-19 Patient has been boosted against Covid. Home oxygen is 3 L as needed and at bedtime. Patient was tested for Covid test prior to discharge to SNF on 10/08, came back positive Patient requiring baseline oxygen, afebrile, respiratory mason stable. Patient having diarrhea, patient not sure whether it is worsening or getting better. We will continue to follow. No indication for steroid or remdesivir at this point, closely monitor, incentive spirometer (2) UTI (urinary tract infection): (3) Leukocytosis: Plan: Urine culture grew E. coli pansensitive Status post treatment. (4) Uncontrolled type II diabetes mellitus: Plan: A1c this admission 13.5. Currently on Lantus and insulin sliding scale during the hospital course, BG relatively controlledd. Home regimen includes Lantus 68 unit BID, 10 unit TIDM Novolog, Trulicity Continue monitor blood sugar. MTM clinic upon DC. healthcare educator john (5) Hyperkalemia: -Resolved (6) Combined congestive systolic and diastolic heart failure: Plan: IV Lasix titrated for volume overload transitioned to usual Lasix 40mg BID per nephro crea at baseline monitor volume status closely (7) CKD (chronic kidney disease), stage III: Plan: ELOY on CKD stage III- ELOY resolved. baseline creatinine around 1.6-1.8 Admitting creatinine was 3.08 #. Other chronic medical conditions: HTN, asthma, complete heart block, HLD, PVD, morbid obesity Continue with/resume home meds as and when appropriate. DVT Ppx: on heparin subcu Code status: FULL Dispo: Needs to wait for 10 days since COVID positive status before placement. It would be 10/18. She will also need follow-up with [facility] for her diabetes as an outpatient. Admission and Anticipated Discharge Date Admission Date: September 22, 2021 Subjective Patient seen and examined at bedside. lying comfortably in bed. No new changes. Denies any respiratory issues, fever or chills. Physical Exam Physical Exam: GENERAL: Alert and oriented x3. NAD HEENT: No pallor, no icterus. Pupils equal, round and reactive to light. Oral mucosa moist. HEART: Normal heart sounds. Regular rate and rhythm. No murmur, no gallop. RESPIRATORY SYSTEM: Clear anteriorly. No wheezing, no crackles. ABDOMEN: Soft, bowel sounds present, no distention. CENTRAL NERVOUS SYSTEM: AAO, conversing well, non focal EXTREMITIES: RLE trace edema, LLE with splint and chronic skin changes. no erythema seen. Urinary catheter with carlos urine . Results & Data Results & Data ([facility]) Vital Signs (Past 12 Hours) Vital Signs Temp Pulse Resp BP Pulse Ox 10/14/21 07:26 36.6 C 76 18 100/83 94
[2021-10-15] MEDS: SODIUM CHLORIDE 0.65% NA SOLN 45 ML (OCEAN) SCH ×6 (02:38→20:02)
[2021-10-15] MEDS: HEPARIN SOD 5,000 UNIT/0.5 ML VIAL SQ SCH ×3 (05:16→20:02)
[2021-10-15] MEDS: traMADol HCL 50 MG TABLET PO PRN (05:17)
[2021-10-15] MEDS: POLYETHYLENE (MIRALAX) 17 GM PACK PO SCH (09:23)
[2021-10-15] MEDS: CEROVITE ADV FORMULA TAB PO SCH (09:24)
[2021-10-15] MEDS: ROSUVASTATIN CALCIUM 20 MG TAB PO SCH (09:24)
[2021-10-15] MEDS: MONTELUKAST SODIUM 10 MG TABLET PO SCH (09:24)
[2021-10-15] MEDS: FUROSEMIDE 40 MG TAB PO SCH ×2 (09:25→16:55)
[2021-10-15] MEDS: CYANOCOBALAMIN (B-12) 100 MCG TABLET PO SCH (09:25)
[2021-10-15] MEDS: carvediloL 12.5 MG TAB PO SCH ×2 (09:25→20:01)
[2021-10-15] MEDS: CLOPIDOGREL BISULFATE 75 MG TAB PO SCH (09:25)
[2021-10-15] MEDS: ASPIRIN 81 MG ECTAB PO SCH (09:25)
[2021-10-15] MEDS: LIDOCAINE 5% 1 PATCH TD SCH (09:30)
[2021-10-15] MEDS: POTASSIUM CHLORIDE CRTAB 20 MEQ TABCR PO SCH ×2 (09:30→17:44)
[2021-10-15] MEDS: INSULIN ASPART PER UNIT SC SCH ×4 (09:33→20:00)
[2021-10-15] MEDS: INSULIN GLARGINE SOLOSTAR 100 UNITS/ML 3 ML PEN SC SCH ×2 (09:34→20:03)
[2021-10-15] MEDS: UMECLIDINIUM BROMIDE 62.5MCG/BLISTER 7 PUFFS/INHALER INH SCH (09:45)
[2021-10-15] MEDS: BUDESONIDE AQ (RHINOCORT AQ) NASAL SPRAY 32 MCG NAE SCH (09:46)
[2021-10-15] MEDS: DICLOFENAC SOD 1% GEL 100 GM TUBE EXT SCH ×4 (09:50→20:00)
[2021-10-15] MEDS: TRIAMCINOLONE ACET 0.025% CR 15 GM TUBE TOP SCH ×2 (09:52→20:01)
--- NOTE | 2021-10-15 15:57 | Hospitalist Progress Note ---
Date of Service October 15, 2021 Assessment & Plan (1) Periprosthetic fracture around internal prosthetic left knee joint: Plan: 76yo F with a PMH of DM II, asthma, severe sleep apnea on 3L [place] HS, combined systolic and diastolic heart failure, h/o complete heart block s/p pacemaker placement, LBBB, PVD, CKD III, dyslipidemia, morbid obesity and other medical problems as below who presents from home after fall. She is being managed for the following: (1) Periprosthetic fracture around internal prosthetic left knee joint: Plan: Tibia/fibula XRwith fracture of the proximal tibia at the distal aspect of the tibial component of the knee arthroplasty. There is associated soft tissue swelling Left hip x-ray showedno evidence of acute osseous injury. Ortho Recommended conservative management and hinged knee brace with nonweightbearing If the bracing would fail for any reason, the patient may require ORIF versus a revision tibial component to be placed. If surgery required, patient will need to be transferred to tertiary care facility to get it done Hinged knee brace to be on at all times. May loosen for bathing. No ROM of knee at this time. pain control improving with PRN Tramadol and [place] continue PT/OT outpatient follow up with [facility] #. COVID-19 Patient has been boosted against Covid. Home oxygen is 3 L as needed and at bedtime. Patient was tested for Covid test prior to discharge to SNF on 10/08, came back positive Patient requiring baseline oxygen, afebrile, respiratory mason stable. Patient having diarrhea, patient not sure whether it is worsening or getting better. We will continue to follow. No indication for steroid or remdesivir at this point, closely monitor, incentive spirometer (2) UTI (urinary tract infection): Plan: Urine culture grew E. coli pansensitive. Status post treatment. (3) Uncontrolled type II diabetes mellitus: Plan: A1c this admission 13.5. Currently on Lantus and insulin sliding scale during the hospital course, BG relatively controlledd. Home regimen includes Lantus 68 unit BID, 10 unit TIDM Novolog, Trulicity Continue monitor blood sugar. [facility] upon DC. music educator john (4) Hyperkalemia: -Resolved (5) Combined congestive systolic and diastolic heart failure: Plan: S/p IV Lasix and now on po Lasix 40mg BID per nephro Check labs in am, monitor volume status closely (6) CKD (chronic kidney disease), stage III: Plan: ELOY on CKD stage III- ELOY resolved. baseline creatinine around 1.6-1.8 Admitting creatinine was 3.08 #. Other chronic medical conditions: HTN, asthma, complete heart block, HLD, PVD, morbid obesity Continue with/resume home meds as and when appropriate. DVT Ppx: on heparin subcu Code status: FULL Dispo: Plan for Center care at discharge. Per CM, need to wait for 10-14 days since COVID positive status before placement. It would be 10/18. She will also need follow-up with [facility] clinic for her diabetes as an outpatient. Updated over the phone Admission and Anticipated Discharge Date Admission Date: September 22, 2021 Subjective Patient seen and examined at bedside. lying comfortably in bed. No new issues. Pain is controlled. Denies any respiratory issues, fever or chills. Normal appetite. Regular BM. Physical Exam Physical Exam: General: Obese, lying comfortably in bed, not in distress, on room air HEENT: EOMI, [place], MMM Chest: Clear breath sounds bilaterally, no wheezes or crackles CVS: Regular rate and rhythm, normal heart sounds, no murmur Abdomen: Soft, non tender, not distended, normal bowel sounds Neuro: Awake, alert, oriented, conversing well, non focal Extremities: LLE with brace Results & Data Results & Data ([facility]) Vital Signs (Past 12 Hours) Vital Signs Temp Pulse Resp BP Pulse Ox Pulse Ox 10/15/21 15:47 37.0 C 71 20 105/67 91 10/15/21 09:00 95 10/15/21 08:00 36.6 C 74 18 121/52 L 95
[2021-10-15] MEDS: ACETAMINOPHEN 325 MG TAB PO PRN (20:09)
[2021-10-16] MEDS: SODIUM CHLORIDE 0.65% NA SOLN 45 ML (OCEAN) SCH ×6 (04:10→23:20)
[2021-10-16] MEDS: HEPARIN SOD 5,000 UNIT/0.5 ML VIAL SQ SCH ×3 (06:19→23:20)
[2021-10-16 07:18] LABS: Hematocrit (blood only) 37.6 % (37-47); Hemoglobin 12.1 g/dL (12.0-16.0); Mean Corpuscular Hemoglobin 30.8 pg (25-34); Mean Corpuscular Hgb Conc 32.2 g/dL (32-36); Mean Corpuscular Volume 95.7 fL (80-100); Mean Platelet Volume 9.9 fL (7.4-10.4); Platelet Count 345 K/uL (130-400); RDW Coefficient of Variation 15.9 % (11.5-14.5); RDW Standard Deviation 55.2 fL (36.4-46.3); Red Blood Count 3.93 M/uL (4.2-5.4); White Blood Count 7.75 K/uL (4.8-10.8)
[2021-10-16 07:33] LABS: BUN Creatinine Ratio 19.3 (10-20); Calcium 10.1 mg/dl (8.5-10.1); Est GFR (Non-African American) 27.6 ml/min
[2021-10-16] MEDS: INSULIN ASPART PER UNIT SC SCH ×4 (08:06→21:32)
[2021-10-16] MEDS: INSULIN GLARGINE SOLOSTAR 100 UNITS/ML 3 ML PEN SC SCH ×2 (08:11→22:11)
[2021-10-16] MEDS: UMECLIDINIUM BROMIDE 62.5MCG/BLISTER 7 PUFFS/INHALER INH SCH (08:27)
[2021-10-16] MEDS: carvediloL 12.5 MG TAB PO SCH ×2 (08:27→21:31)
[2021-10-16] MEDS: CLOPIDOGREL BISULFATE 75 MG TAB PO SCH (08:28)
[2021-10-16] MEDS: ROSUVASTATIN CALCIUM 20 MG TAB PO SCH (08:28)
[2021-10-16] MEDS: DICLOFENAC SOD 1% GEL 100 GM TUBE EXT SCH ×4 (08:28→21:31)
[2021-10-16] MEDS: CEROVITE ADV FORMULA TAB PO SCH (08:29)
[2021-10-16] MEDS: MONTELUKAST SODIUM 10 MG TABLET PO SCH (08:29)
[2021-10-16] MEDS: CYANOCOBALAMIN (B-12) 100 MCG TABLET PO SCH (08:29)
[2021-10-16] MEDS: FUROSEMIDE 40 MG TAB PO SCH ×2 (08:29→18:22)
[2021-10-16] MEDS: LIDOCAINE 5% 1 PATCH TD SCH (08:30)
[2021-10-16] MEDS: ASPIRIN 81 MG ECTAB PO SCH (08:30)
[2021-10-16] MEDS: BUDESONIDE AQ (RHINOCORT AQ) NASAL SPRAY 32 MCG NAE SCH (08:32)
[2021-10-16] MEDS: TRIAMCINOLONE ACET 0.025% CR 15 GM TUBE TOP SCH ×2 (08:32→21:31)
[2021-10-16] MEDS: POLYETHYLENE (MIRALAX) 17 GM PACK PO SCH (08:35)
[2021-10-16] MEDS: ACETAMINOPHEN 325 MG TAB PO PRN (08:45)
[2021-10-16] MEDS: POTASSIUM CHLORIDE CRTAB 20 MEQ TABCR PO SCH ×2 (08:46→18:22)
--- NOTE | 2021-10-16 14:06 | Pharmacy Report ---
Pharmacy Glycemic Short Note 2 - Date of Service October 16, 2021 - Glycemic Short BSG Results (Last 24 hours): 10/15/21 10/15/21 10/16/21 16:16 19:54 06:09 Glucose 109 H POC Glucose 126 H 176 H 10/16/21 10/16/21 07:55 11:45 Glucose POC Glucose 135 H 190 H OUTPATIENT ANTIDIABETIC REGIMEN: * Lantus 68 units SC BID * NovoLog 10 units SC TID * Trulicity 3 mg SC once weekly * HbA1c = 13.5% (09/23/21) ASSESSMENT: 10/16: * BSGs overall well controlled over the past 24 hours. Fasting BSG significantly improved with 110 units of basal insulin yesterday. * Patient continued to tolerate a diet and is reasonably well controlled on current NovoLog scale. 10/14 * BSGs still somewhat labile ([phone]). AM BSG came down slightly to 185mg/dL, however still elevated. Evening BSGs yesterday came down into goal range. * T2DM diet ordered. Stressors stable. * AM Lantus dose increased to 55 today. Plan for 50 units tonight (5% increase in basal). Novolog loosened this AM d/t evening BSG 119 last night, however tightened again back to 10/3 this afternoon as BSGs trending up at lunch. 10/13 * Stressors stable - T2DM diet * AM fasting BSG elevated and trending up. Will increase Lantus * Post-prandial BSG's all >170 mg/dL yesterday. Will tighten CHO ratio 10/12 * BSGs were [phone] mg/dL yesterday and fasting today is 175 on POC and blood draw is 136. * Patient received 114 units yesterday- 80 units basal and 34 units bolus. * Will keep current basal dose. Decreased CF to 10 and kept CHO ratio at 4. * Lunch BSG is 175 today, improvement from previous days. May need to continue to tighten CF/CR to obtain goal range BSG 10/11 * Patient's BSGs were [phone] mg/dL and fasting today is 221 mg/dL. * Patient received 113 units of insulin yesterday (70 units of basal and 43 u nits of bolus). * Fasting trending upwards so increase insulin by 15% to 80 units daily. * Lunch BSG significantly elevated because it was taken < 2 hours after breakfast insulin given. Continue Novolog. 10/10 * Patient's BSGs yesterday were [phone] mg/dL. Fasting today 191 mg/dL. * Increase basal by 10% to 35 units BID. * Continue Novolog as BSGs did trend downwards yesterday. PLAN FOR INPATIENT GLYCEMIC CONTROL: * Hold outpatient Trulicity * Basal insulin - increase * Lantus 55 units BID * Bolus insulin * NovoLog per scale ACHS or Q6hrs while NPO * Goal Range: Low 110 mg/dL - High 140 mg/dL * Correction Factor: 10 mg/dL/unit * Nutritional / Prandial insulin per carb ratio of 1 unit per 3 grams CHO consumed PLAN FOR DISCHARGE: * HbA1c of 13.5% is well above goal of less than 8% for this patient. Recommend referral to expenditure requisition clerk or MTM clinic for help with managing T2DM. * DM educator met with patient and patient reports eating very little at home.
[2021-10-16] MEDS: HYDROCODONE/ACETAMOPHEN 5/325MG TAB PO PRN (14:18)
--- NOTE | 2021-10-16 17:38 | Hospitalist Progress Note ---
Date of Service October 16, 2021 Assessment & Plan (1) Periprosthetic fracture around internal prosthetic left knee joint: Plan: 76yo F with a PMH of DM II, asthma, severe sleep apnea on 3L NC HS, combined systolic and diastolic heart failure, h/o complete heart block s/p pacemaker placement, LBBB, PVD, CKD III, dyslipidemia, morbid obesity and other medical problems as below who presents from home after fall. She is being managed for the following: (1) Periprosthetic fracture around internal prosthetic left knee joint: Plan: Tibia/fibula XRwith fracture of the proximal tibia at the distal aspect of the tibial component of the knee arthroplasty. There is associated soft tissue swelling Left hip x-ray showedno evidence of acute osseous injury. Ortho Recommended conservative management and hinged knee brace with nonweightbearing If the bracing would fail for any reason, the patient may require ORIF versus a revision tibial component to be placed. If surgery required, patient will need to be transferred to tertiary care facility to get it done Hinged knee brace to be on at all times. May loosen for bathing. No ROM of knee at this time. pain control improving with PRN Tramadol and [place] continue PT/OT outpatient follow up with [facility] #. COVID-19 Patient has been boosted against Covid. Home oxygen is 3 L as needed and at bedtime. Patient was tested for Covid test prior to discharge to SNF on 10/08, came back positive Patient requiring baseline oxygen, afebrile, respiratory mason stable. Patient having diarrhea, patient not sure whether it is worsening or getting better. We will continue to follow. No indication for steroid or remdesivir at this point, closely monitor, incentive spirometer (2) UTI (urinary tract infection): Plan: Urine culture grew E. coli pansensitive. Status post treatment. (3) Uncontrolled type II diabetes mellitus: Plan: A1c this admission 13.5. Currently on Lantus and insulin sliding scale during the hospital course, BG relatively controlledd. Home regimen includes Lantus 68 unit BID, 10 unit TIDM Novolog, Trulicity Continue monitor blood sugar. [facility] clinic upon DC. nurse informatics educator john (4) Hyperkalemia: -Resolved (5) Combined congestive systolic and diastolic heart failure: Plan: continue lasix 40mg PO daily. Renal function appears stable (6) CKD (chronic kidney disease), stage III: Plan: ELOY on CKD stage III- ELOY resolved. baseline creatinine around 1.6-1.8 Admitting creatinine was 3.08 #. Other chronic medical conditions: HTN, asthma, complete heart block, HLD, PVD, morbid obesity Continue with/resume home meds as and when appropriate. DVT Ppx: on heparin subcu Code status: FULL Dispo: Patient is medically stable for discharge. Needs SNF placement once she finishes her 10 day quarantine period. Admission and Anticipated Discharge Date Admission Date: September 22, 2021 Subjective Patient reports left leg pain that is uncontrolled Physical Exam Physical Exam: appears uncomfortable and in pain, moaning Respiratory: breathing comfortably on NC, no wheezing/rhonchi Cardiovascular: regular rate and rhythm, no murmurs/rubs/gallops Gastrointestinal (Abdomen): soft, non tender, non distended Musculoskeletal: left leg in immobilizer Neurologic: awake, appears distracted, poor historian currently Results & Data Results & Data ([facility]) Vital Signs (Past 12 Hours) Vital Signs Temp Pulse Resp BP BP Pulse Ox Pulse Ox 10/16/21 16:10 36.6 C 73 20 111/59 L 98 10/16/21 09:00 93 10/16/21 07:58 36.7 C 76 20 112/53 L 96 Laboratory Results Short CBC 10/16/21 Range/Units 06:09 WBC 7.75 (4.8-10.8) K/uL Hgb 12.1 (12.0-16.0) g/dL Hct 37.6 (37-47) % Plt Count 345 (130-400) K/uL BMP 10/16/21 06:09 Sodium 136 Potassium 4.0 Chloride 95 L Carbon Dioxide 32 BUN 34 H Creatinine 1.76 H Glucose 109 H Calcium 10.1 Medications Administered Current Inpatient Medications Acetaminophen (Acetaminophen 500 Mg Tab) 1,000 mg PO TID [facility] Stop: 11/15/21 20:59 Hydrocodone Bitart/Acetaminophen (Hydrocodone/Acetamophen 5/325mg Tab) 1 tab PO Q6H PRN PRN Reason: Severe Pain Stop: 10/19/21 09:31 Last Admin: 10/16/21 14:18 Dose: 1 tab Documented by: Albuterol (Albuterol 0.083% Nebu Soln 3 Ml Vial) 2.5 mg INH Q4H PRN; Protocol PRN Reason: Shortness Of Breath Or Wheezing Stop: 10/22/21 21:13 Aspirin (Aspirin 81 Mg Ectab) 81 mg PO DAILY JEY Stop: 10/23/21 08:59 Last Admin: 10/16/21 08:30 Dose: 81 mg Documented by: Budesonide (Budesonide Aq (Rhinocort Aq) Nasal [place] 32 Mcg) 2 sprays DOROTHY DAILY JEY Stop: 10/23/21 08:59 Last Admin: 10/16/21 08:32 Dose: 2 sprays Documented by: Carvedilol (Carvedilol 12.5 Mg Tab) 12.5 mg PO BID JEY Stop: 10/22/21 21:13 Last Admin: 10/16/21 08:27 Dose: 12.5 mg Documented by: Clopidogrel Bisulfate (Clopidogrel Bisulfate 75 Mg Tab) 75 mg PO DAILY JEY Stop: 10/23/21 08:59 Last Admin: 10/16/21 08:28 Dose: 75 mg Documented by: Cyanocobalamin (Cyanocobalamin (Vitamin B-12) 100 Mcg Tablet) 100 mcg PO DAILY JEY Stop: 10/23/21 08:59 Last Admin: 10/16/21 08:29 Dose: 100 mcg Documented by: Dextrose (Dextrose 50% 50 Ml Syringe) 25 - 50 ml IV UD PRN; Protocol PRN Reason: Hypoglycemia Protocol Stop: 10/22/21 18:59 Diclofenac Sodium (Diclofenac Sod 1% Gel 100 Gm Tube) 4 gm EXT QID JEY Stop: 10/22/21 21:13 Last Admin: 10/16/21 14:17 Dose: 4 gm Documented by: Furosemide (Furosemide 40 Mg Tab) 40 mg PO BID17 JEY Stop: 11/04/21 16:59 Last Admin: 10/16/21 08:29 Dose: 40 mg Documented by: Gabapentin (Gabapentin 100 Mg Cap) 200 mg PO HS [facility] Stop: 10/22/21 21:44 Last Admin: 09/23/21 22:49 Dose: 200 mg Documented by: Gabapentin (Gabapentin 300 Mg Cap) 300 mg PO BID@0900,1400 JEY Stop: 10/23/21 08:59 Last Admin: 09/23/21 15:35 Dose: Not Given Documented by: Glucagon (Glucagon For Inj 1 Mg Vial) 1 mg IM UD PRN; Protocol PRN Reason: Hypoglycemia Protocol Stop: 10/22/21 18:59 Glucose (Glucose 40% Gel 15 Gm Tube) 15 - 30 gm PO UD PRN; Protocol PRN Reason: Hypoglycemia Protocol Stop: 10/22/21 18:59 Glucose (Glucose 10 Tabs/Tube) 4 - 8 tabs PO UD PRN; Protocol PRN Reason: Hypoglycemia Protocol Stop: 10/22/21 18:59 Heparin Sodium (Porcine) (Heparin Sod 5,000 Unit/0.5 Ml Vial) 5,000 units SQ Q8 [facility] Stop: 10/24/21 21:59 Last Admin: 10/16/21 14:17 Dose: 5,000 units Documented by: Insulin Aspart (Insulin Aspart Per Unit) 0 units SC ACHS [facility]; Protocol Stop: 11/06/21 07:29 Last Admin: 10/16/21 12:16 Dose: 18 units Documented by: Insulin Glargine (Insulin Glargine Solostar 100 Units/Ml 3 Ml Pen) 55 units SC BID [facility] Stop: 11/14/21 08:59 Last Admin: 10/16/21 08:11 Dose: 55 units Documented by: Lidocaine (Lidocaine 5% 1 Patch) 1 patch TD QAM [facility] Stop: 11/03/21 09:44 Last Admin: 10/16/21 08:30 Dose: 1 patch Documented by: Loratadine (Loratadine 10 Mg Tab) 10 mg PO DAILY PRN PRN Reason: Allergy Symptoms Stop: 10/22/21 21:13 Last Admin: 10/08/21 08:16 Dose: 10 mg Documented by: Magnesium Hydroxide (Magnesium Hydroxide Susp 30 Ml Udc) 30 ml PO Q6H PRN PRN Reason: Constipation Stop: 11/04/21 10:23 Miscellaneous (Carbohydrates For Hypoglycemia ) 15 - 30 gm PO UD PRN PRN Reason: Hypoglycemia Treatment Stop: 10/22/21 18:59 Miscellaneous (Remove Lidoderm Patch) 1 ea N/A DAILY@2100 [facility] Stop: 11/03/21 20:59 Last Admin: 10/15/21 20:02 Dose: 1 ea Documented by: Miscellaneous Information (Pharmacy Glycemic Mgmt Consult) 1 ea N/A UD PRN PRN Reason: Consult Stop: 10/22/21 18:08 Montelukast Sodium (Montelukast Sodium 10 Mg Tablet) 10 mg PO DAILY [facility] Stop: 10/23/21 08:59 Last Admin: 10/16/21 08:29 Dose: 10 mg Documented by: Multivitamins/Minerals (Cerovite Adv Formula Tab) 1 tab PO DAILY JEY Stop: 10/23/21 08:59 Last Admin: 10/16/21 08:29 Dose: 1 tab Documented by: Ondansetron HCl (Ondansetron Inj 2 Mg/Ml 2 Ml Vial) 4 mg IV Q6H PRN PRN Reason: Nausea Stop: 10/22/21 21:13 Polyethylene Glycol (Polyethylene (Miralax) 17 Gm Pack) 17 gm PO DAILY PRN PRN Reason: Constipation Stop: 10/22/21 21:13 Polyethylene Glycol (Polyethylene (Miralax) 17 Gm Pack) 17 gm PO DAILY [facility] Stop: 11/05/21 08:59 Last Admin: 10/16/21 08:35 Dose: Not Given Documented by: Potassium Chloride (Potassium Chloride Crtab 20 Meq Tabcr) 20 meq PO BID17 [facility] Stop: 11/01/21 10:14 Last Admin: 10/16/21 08:46 Dose: 20 meq Documented by: Rosuvastatin Calcium (Rosuvastatin Calcium 20 Mg Tab) 40 mg PO DAILY [facility] Stop: 10/23/21 08:59 Last Admin: 10/16/21 08:28 Dose: 40 mg Documented by: Sodium Chloride (Sodium Chloride 0.65% Na Soln 45 Ml ([place])) 2 sprays NA Q4H [facility] Stop: 11/01/21 14:14 Last Admin: 10/16/21 14:18 Dose: 2 sprays Documented by: Tramadol HCl (Tramadol Hcl 50 Mg Tablet) 50 mg PO Q4H PRN PRN Reason: Moderate Pain Stop: 10/24/21 00:26 Last Admin: 10/15/21 05:17 Dose: 50 mg Documented by: Triamcinolone Acetonide (Triamcinolone Acet 0.025% Cr 15 Gm Tube) 1 appln TOP BID [facility] Stop: 10/22/21 21:13 Last Admin: 10/16/21 08:32 Dose: 1 appln Documented by: Umeclidinium [place] (Umeclidinium [place] 62.5mcg/Blister 7 Puffs/Inhaler) 1 puffs INH QAM JEY Stop: 10/23/21 08:59 Last Admin: 02/18/22 08:27 Dose: 1 puffs Documented by:
[2021-10-16] MEDS: ACETAMINOPHEN 500 MG TAB PO SCH (21:31)
[2021-10-16] MEDS: GABAPENTIN 100 MG CAP PO SCH (23:27)
[2021-10-17] MEDS: SODIUM CHLORIDE 0.65% NA SOLN 45 ML (OCEAN) SCH ×6 (03:32→20:40)
[2021-10-17 05:54] LABS: Hematocrit (blood only) 37.9 % (37-47); Hemoglobin 12.2 g/dL (12.0-16.0); Mean Corpuscular Hgb Conc 32.2 g/dL (32-36); Mean Corpuscular Volume 96.4 fL (80-100); Mean Platelet Volume 9.6 fL (7.4-10.4); Platelet Count 338 K/uL (130-400); RDW Coefficient of Variation 15.9 % (11.5-14.5); RDW Standard Deviation 55.5 fL (36.4-46.3); Red Blood Count 3.93 M/uL (4.2-5.4); White Blood Count 7.32 K/uL (4.8-10.8)
[2021-10-17] MEDS: HEPARIN SOD 5,000 UNIT/0.5 ML VIAL SQ SCH ×3 (06:01→20:40)
[2021-10-17 06:17] LABS: BUN Creatinine Ratio 20.2 (10-20); Calcium 9.9 mg/dl (8.5-10.1); Creatinine Clr Calc Pharmacy 35.6 ml/min; Est GFR (African American) 32.7 ml/min; Est GFR (Non-African American) 28.2 ml/min; Phosphorus 4.2 mg/dl (2.5-4.9)
[2021-10-17] MEDS: ACETAMINOPHEN 500 MG TAB PO SCH ×3 (08:42→20:41)
[2021-10-17] MEDS: DICLOFENAC SOD 1% GEL 100 GM TUBE EXT SCH ×4 (08:43→20:37)
[2021-10-17] MEDS: TRIAMCINOLONE ACET 0.025% CR 15 GM TUBE TOP SCH ×2 (08:43→20:37)
[2021-10-17] MEDS: POTASSIUM CHLORIDE CRTAB 20 MEQ TABCR PO SCH ×2 (08:43→18:27)
[2021-10-17] MEDS: ASPIRIN 81 MG ECTAB PO SCH (08:44)
[2021-10-17] MEDS: CEROVITE ADV FORMULA TAB PO SCH (08:44)
[2021-10-17] MEDS: MONTELUKAST SODIUM 10 MG TABLET PO SCH (08:44)
[2021-10-17] MEDS: GABAPENTIN 300 MG CAP PO SCH ×2 (08:44→16:15)
[2021-10-17] MEDS: CYANOCOBALAMIN (B-12) 100 MCG TABLET PO SCH (08:44)
[2021-10-17] MEDS: LIDOCAINE 5% 1 PATCH TD SCH (08:45)
[2021-10-17] MEDS: ROSUVASTATIN CALCIUM 20 MG TAB PO SCH (08:45)
[2021-10-17] MEDS: carvediloL 12.5 MG TAB PO SCH ×2 (08:46→20:39)
[2021-10-17] MEDS: BUDESONIDE AQ (RHINOCORT AQ) NASAL SPRAY 32 MCG NAE SCH (08:53)
[2021-10-17] MEDS: CLOPIDOGREL BISULFATE 75 MG TAB PO SCH (08:53)
[2021-10-17] MEDS: POLYETHYLENE (MIRALAX) 17 GM PACK PO SCH (08:54)
[2021-10-17] MEDS: FUROSEMIDE 40 MG TAB PO SCH ×2 (08:54→18:27)
[2021-10-17] MEDS: UMECLIDINIUM BROMIDE 62.5MCG/BLISTER 7 PUFFS/INHALER INH SCH (08:54)
[2021-10-17] MEDS ORDERED: INSULIN GLARGINE SOLOSTAR 100 UNITS/ML 3 ML PEN SC SCH ×2 (09:00→21:00)
[2021-10-17] MEDS: INSULIN ASPART PER UNIT SC SCH ×4 (10:03→21:30)
--- NOTE | 2021-10-17 13:26 | Pharmacy Report ---
Pharmacy Glycemic Short Note 2 - Date of Service October 17, 2021 - Glycemic Short BSG Results (Last 24 hours): 10/16/21 10/16/21 10/17/21 16:15 20:40 05:38 Glucose 77 POC Glucose 90 135 H 10/17/21 10/17/21 10/17/21 07:45 09:58 11:29 Glucose POC Glucose 89 161 H 138 H OUTPATIENT ANTIDIABETIC REGIMEN: * Lantus 68 units SC BID * NovoLog 10 units SC TID * Trulicity 3 mg SC once weekly * HbA1c = 13.5% (09/23/21) ASSESSMENT: 10/17: * Downtrend in BSGs noted over past 24 hours with fasting BSG of 89 mg/dL this morning * PO intake reduced per RN, will decrease Lantus significantly today and add Novolog safety check overnight * No change to Novolog scale today 10/16: * BSGs overall well controlled over the past 24 hours. Fasting BSG significantly improved with 110 units of basal insulin yesterday. * Patient continued to tolerate a diet and is reasonably well controlled on current NovoLog scale. 10/14 * BSGs still somewhat labile ([phone]). AM BSG came down slightly to 185mg/dL, however still elevated. Evening BSGs yesterday came down into goal range. * T2DM diet ordered. Stressors stable. * AM Lantus dose increased to 55 today. Plan for 50 units tonight (5% increase in basal). Novolog loosened this AM d/t evening BSG 119 last night, however tightened again back to 10/3 this afternoon as BSGs trending up at lunch. PLAN FOR INPATIENT GLYCEMIC CONTROL: * Hold outpatient Trulicity * Basal insulin - decrease * Lantus 40 units SC x 1 this morning * Lantus 0-20 units SC HS (see EHR for details) * Reassess in AM * Bolus insulin * NovoLog per scale ACHS or Q6hrs while NPO * Goal Range: Low 110 mg/dL - High 140 mg/dL * Correction Factor: 10 mg/dL/unit * Nutritional / Prandial insulin per carb ratio of 1 unit per 3 grams CHO consumed PLAN FOR DISCHARGE: * HbA1c of 13.5% is well above goal of less than 8% for this patient. Recommend referral to [facility] or [facility] clinic for help with managing T2DM. * DM educator met with patient and patient reports eating very little at home.
--- NOTE | 2021-10-17 17:39 | Hospitalist Progress Note ---
Date of Service October 17, 2021 Assessment & Plan (1) Periprosthetic fracture around internal prosthetic left knee joint: Plan: 76yo F with a PMH of DM II, asthma, severe sleep apnea on 3L NC HS, combined systolic and diastolic heart failure, h/o complete heart block s/p pacemaker placement, LBBB, PVD, CKD III, dyslipidemia, morbid obesity and other medical problems as below who presents from home after fall. She is being managed for the following: Periprosthetic fracture around internal prosthetic left knee joint: Plan: Tibia/fibula XRwith fracture of the proximal tibia at the distal aspect of the tibial component of the knee arthroplasty. There is associated soft tissue swelling Left hip x-ray showedno evidence of acute osseous injury. Ortho Recommended conservative management and hinged knee brace with nonweightbearing If the bracing would fail for any reason, the patient may require ORIF versus a revision tibial component to be placed. If surgery required, patient will need to be transferred to tertiary care facility to get it done Hinged knee brace to be on at all times. May loosen for bathing. No ROM of knee at this time. continue PT/OT outpatient follow up with [facility] Reduce gabapentin to 100mg BID, continue scheduled acetaminophen, Asymptomatic COVID-19 Patient has been boosted against Covid. Home oxygen is 3 L as needed and at bedtime. Patient was tested for Covid test prior to discharge to SNF on 10/08, came back positive Patient requiring baseline oxygen, afebrile, respiratory mason stable. Patient having diarrhea, patient not sure whether it is worsening or getting better. We will continue to follow. No indication for steroid or remdesivir at this point, closely monitor, incentive spirometer E coli UTI Plan: Urine culture grew E. coli pansensitive. Status post treatment. Uncontrolled type II diabetes mellitus: Plan: A1c this admission 13.5. Currently on Lantus and insulin sliding scale during the hospital course, BG relatively controlledd. Home regimen includes Lantus 68 unit BID, 10 unit TIDM Novolog, Trulicity Continue monitor blood sugar. [facility] clinic upon DC. outreach educator john Hyperkalemia: -Resolved Combined congestive systolic and diastolic heart failure: Plan: continue lasix 40mg PO daily. Renal function appears stable. She is euvolemic currently ELOY on CKD stage III- ELOY resolved. baseline creatinine around 1.6-1.8 Admitting creatinine was 3.08 Other chronic medical conditions: HTN, asthma, complete heart block, HLD, PVD, morbid obesity Continue with/resume home meds as and when appropriate. DVT Ppx: on heparin subcu Code status: FULL Dispo: Patient is medically stable for discharge. Needs SNF placement once she finishes her 10 day quarantine period. Admission and Anticipated Discharge Date Admission Date: September 22, 2021 Subjective Per nursing, gabapentin this morning made patient very drowsy Patient feels her pain is improved Physical Exam Physical Exam: Appears weak Respiratory: breathing comfortably, no wheezing/rhonchi/rales Cardiovascular: regular rate and rhythm, no murmurs/rubs/gallops Gastrointestinal (Abdomen): soft, non tender Musculoskeletal: left leg in brace Neurologic: awake but appears confused Results & Data Results & Data ([facility]) Vital Signs (Past 12 Hours) Vital Signs Temp Pulse Resp BP BP Pulse Ox Pulse Ox 10/17/21 15:07 36.8 C 74 17 127/65 96 10/17/21 09:00 97 10/17/21 07:47 36.8 C 76 16 120/67 96 Laboratory Results Short CBC 10/17/21 Range/Units 05:38 WBC 7.32 (4.8-10.8) K/uL Hgb 12.2 (12.0-16.0) g/dL Hct 37.9 (37-47) % Plt Count 338 (130-400) K/uL BMP 10/17/21 05:38 Sodium 136 Potassium 4.0 Chloride 96 L Carbon Dioxide 34 H BUN 35 H Creatinine 1.73 H Glucose 77 Calcium 9.9 Medications Administered Current Inpatient Medications Acetaminophen (Acetaminophen 500 Mg Tab) 1,000 mg PO TID [facility] Stop: 11/15/21 20:59 Last Admin: 10/17/21 16:32 Dose: 1,000 mg Documented by: Hydrocodone Bitart/Acetaminophen (Hydrocodone/Acetamophen 5/325mg Tab) 1 tab PO Q6H PRN PRN Reason: Severe Pain Stop: 10/19/21 09:31 Last Admin: 10/16/21 14:18 Dose: 1 tab Documented by: Albuterol (Albuterol 0.083% Nebu Soln 3 Ml Vial) 2.5 mg INH Q4H PRN; Protocol PRN Reason: Shortness Of Breath Or Wheezing Stop: 10/22/21 21:13 Aspirin (Aspirin 81 Mg Ectab) 81 mg PO DAILY JEY Stop: 10/23/21 08:59 Last Admin: 10/17/21 08:44 Dose: 81 mg Documented by: Budesonide (Budesonide Aq (Rhinocort Aq) Nasal [place] 32 Mcg) 2 sprays DOROTHY DAILY JEY Stop: 10/23/21 08:59 Last Admin: 10/17/21 08:53 Dose: 2 sprays Documented by: Carvedilol (Carvedilol 12.5 Mg Tab) 12.5 mg PO BID JEY Stop: 10/22/21 21:13 Last Admin: 10/17/21 08:46 Dose: 12.5 mg Documented by: Clopidogrel Bisulfate (Clopidogrel Bisulfate 75 Mg Tab) 75 mg PO DAILY JEY Stop: 10/23/21 08:59 Last Admin: 10/17/21 08:53 Dose: 75 mg Documented by: Cyanocobalamin (Cyanocobalamin (Vitamin B-12) 100 Mcg Tablet) 100 mcg PO DAILY JEY Stop: 10/23/21 08:59 Last Admin: 10/17/21 08:44 Dose: 100 mcg Documented by: Dextrose (Dextrose 50% 50 Ml Syringe) 25 - 50 ml IV UD PRN; Protocol PRN Reason: Hypoglycemia Protocol Stop: 10/22/21 18:59 Diclofenac Sodium (Diclofenac Sod 1% Gel 100 Gm Tube) 4 gm EXT QID JEY Stop: 10/22/21 21:13 Last Admin: 10/17/21 14:30 Dose: 4 gm Documented by: Furosemide (Furosemide 40 Mg Tab) 40 mg PO BID17 JEY Stop: 11/04/21 16:59 Last Admin: 10/17/21 08:54 Dose: 40 mg Documented by: Gabapentin (Gabapentin 100 Mg Cap) 100 mg PO BID JEY Stop: 11/16/21 20:59 Glucagon (Glucagon For Inj 1 Mg Vial) 1 mg IM UD PRN; Protocol PRN Reason: Hypoglycemia Protocol Stop: 10/22/21 18:59 Glucose (Glucose 40% Gel 15 Gm Tube) 15 - 30 gm PO UD PRN; Protocol PRN Reason: Hypoglycemia Protocol Stop: 10/22/21 18:59 Glucose (Glucose 10 Tabs/Tube) 4 - 8 tabs PO UD PRN; Protocol PRN Reason: Hypoglycemia Protocol Stop: 10/22/21 18:59 Heparin Sodium (Porcine) (Heparin Sod 5,000 Unit/0.5 Ml Vial) 5,000 units SQ Q8 [facility] Stop: 10/24/21 21:59 Last Admin: 10/17/21 16:32 Dose: 5,000 units Documented by: Insulin Aspart (Insulin Aspart Per Unit) 0 units SC ACHS [facility]; Protocol Stop: 11/06/21 07:29 Last Admin: 10/17/21 13:02 Dose: Not Given Documented by: Insulin Aspart (Insulin Aspart Per Unit) 0 units SC 0200 [facility]; Protocol Stop: 10/18/21 02:01 Insulin Glargine (Insulin Glargine Solostar 100 Units/Ml 3 Ml Pen) 0 units SC HS [facility]; Protocol Stop: 11/16/21 08:59 Lidocaine (Lidocaine 5% 1 Patch) 1 patch TD QAM [facility] Stop: 11/03/21 09:44 Last Admin: 10/17/21 08:45 Dose: 1 patch Documented by: Loratadine (Loratadine 10 Mg Tab) 10 mg PO DAILY PRN PRN Reason: Allergy Symptoms Stop: 10/22/21 21:13 Last Admin: 10/08/21 08:16 Dose: 10 mg Documented by: Magnesium Hydroxide (Magnesium Hydroxide Susp 30 Ml Udc) 30 ml PO Q6H PRN PRN Reason: Constipation Stop: 11/04/21 10:23 Miscellaneous (Carbohydrates For Hypoglycemia ) 15 - 30 gm PO UD PRN PRN Reason: Hypoglycemia Treatment Stop: 10/22/21 18:59 Miscellaneous (Remove Lidoderm Patch) 1 ea N/A DAILY@2100 [facility] Stop: 11/03/21 20:59 Last Admin: 10/16/21 21:32 Dose: 1 ea Documented by: Miscellaneous Information (Pharmacy Glycemic Mgmt Consult) 1 ea N/A UD PRN PRN Reason: Consult Stop: 10/22/21 18:08 Montelukast Sodium (Montelukast Sodium 10 Mg Tablet) 10 mg PO DAILY [facility] Stop: 10/23/21 08:59 Last Admin: 10/17/21 08:44 Dose: 10 mg Documented by: Multivitamins/Minerals (Cerovite Adv Formula Tab) 1 tab PO DAILY [facility] Stop: 10/23/21 08:59 Last Admin: 10/17/21 08:44 Dose: 1 tab Documented by: Ondansetron HCl (Ondansetron Inj 2 Mg/Ml 2 Ml Vial) 4 mg IV Q6H PRN PRN Reason: Nausea Stop: 10/22/21 21:13 Polyethylene Glycol (Polyethylene (Miralax) 17 Gm Pack) 17 gm PO DAILY PRN PRN Reason: Constipation Stop: 10/22/21 21:13 Polyethylene Glycol (Polyethylene (Miralax) 17 Gm Pack) 17 gm PO DAILY [facility] Stop: 11/05/21 08:59 Last Admin: 10/17/21 08:54 Dose: Not Given Documented by: Potassium Chloride (Potassium Chloride Crtab 20 Meq Tabcr) 20 meq PO BID17 [facility] Stop: 11/01/21 10:14 Last Admin: 10/17/21 08:43 Dose: 20 meq Documented by: Rosuvastatin Calcium (Rosuvastatin Calcium 20 Mg Tab) 40 mg PO DAILY [facility] Stop: 10/23/21 08:59 Last Admin: 10/17/21 08:45 Dose: 40 mg Documented by: Sodium Chloride (Sodium Chloride 0.65% Na Soln 45 Ml ([place])) 2 sprays NA Q4H [facility] Stop: 11/01/21 14:14 Last Admin: 10/17/21 16:15 Dose: Not Given Documented by: Tramadol HCl (Tramadol Hcl 50 Mg Tablet) 50 mg PO Q4H PRN PRN Reason: Moderate Pain Stop: 10/24/21 00:26 Last Admin: 10/15/21 05:17 Dose: 50 mg Documented by: Triamcinolone Acetonide (Triamcinolone Acet 0.025% Cr 15 Gm Tube) 1 appln TOP BID [facility] Stop: 10/22/21 21:13 Last Admin: 10/17/21 08:43 Dose: 1 appln Documented by: Umeclidinium [place] (Umeclidinium [place] 62.5mcg/Blister 7 Puffs/Inhaler) 1 puffs INH QAM [facility] Stop: 10/23/21 08:59 Last Admin: 10/17/21 08:54 Dose: Not Given Documented by:
[2021-10-17] MEDS: traMADol HCL 50 MG TABLET PO PRN (20:36)
[2021-10-17] MEDS: GABAPENTIN 100 MG CAP PO SCH (20:38)
[2021-10-18] MEDS ORDERED: INSULIN ASPART PER UNIT SC SCH (02:00)
[2021-10-18] MEDS: SODIUM CHLORIDE 0.65% NA SOLN 45 ML (OCEAN) SCH ×6 (06:13→21:11)
[2021-10-18] MEDS: HEPARIN SOD 5,000 UNIT/0.5 ML VIAL SQ SCH ×3 (06:25→21:09)
[2021-10-18 06:27] LABS: BUN Creatinine Ratio 18.1 (10-20); Calcium 9.8 mg/dl (8.5-10.1); Creatinine Clr Calc Pharmacy 30.2 ml/min; Est GFR (African American) 26.8 ml/min; Est GFR (Non-African American) 23.1 ml/min; Potassium 4.5 mmol/L (3.5-5.1)
[2021-10-18] MEDS: INSULIN ASPART PER UNIT SC SCH ×4 (08:43→21:22)
[2021-10-18] MEDS: carvediloL 12.5 MG TAB PO SCH ×2 (08:45→21:09)
[2021-10-18] MEDS: ACETAMINOPHEN 500 MG TAB PO SCH ×3 (08:45→21:07)
[2021-10-18] MEDS: BUDESONIDE AQ (RHINOCORT AQ) NASAL SPRAY 32 MCG NAE SCH (08:45)
[2021-10-18] MEDS: ASPIRIN 81 MG ECTAB PO SCH (08:45)
[2021-10-18] MEDS: DICLOFENAC SOD 1% GEL 100 GM TUBE EXT SCH ×4 (08:46→21:06)
[2021-10-18] MEDS: GABAPENTIN 100 MG CAP PO SCH ×2 (08:46→21:10)
[2021-10-18] MEDS: CYANOCOBALAMIN (B-12) 100 MCG TABLET PO SCH (08:46)
[2021-10-18] MEDS: CLOPIDOGREL BISULFATE 75 MG TAB PO SCH (08:46)
[2021-10-18] MEDS: LIDOCAINE 5% 1 PATCH TD SCH (08:48)
[2021-10-18] MEDS: CEROVITE ADV FORMULA TAB PO SCH (08:48)
[2021-10-18] MEDS: MONTELUKAST SODIUM 10 MG TABLET PO SCH (08:48)
[2021-10-18] MEDS: TRIAMCINOLONE ACET 0.025% CR 15 GM TUBE TOP SCH ×2 (08:49→21:11)
[2021-10-18] MEDS: ROSUVASTATIN CALCIUM 20 MG TAB PO SCH (08:49)
[2021-10-18] MEDS: UMECLIDINIUM BROMIDE 62.5MCG/BLISTER 7 PUFFS/INHALER INH SCH (08:49)
[2021-10-18] MEDS: POLYETHYLENE (MIRALAX) 17 GM PACK PO SCH (08:56)
[2021-10-18] MEDS ORDERED: INSULIN GLARGINE SOLOSTAR 100 UNITS/ML 3 ML PEN SC SCH ×2 (09:00)
--- NOTE | 2021-10-18 12:26 | Hospitalist Progress Note ---
Date of Service October 18, 2021 Assessment & Plan (1) Periprosthetic fracture around internal prosthetic left knee joint: Plan: 76yo F with a PMH of DM II, asthma, severe sleep apnea on 3L NC HS, combined systolic and diastolic heart failure, h/o complete heart block s/p pacemaker placement, LBBB, PVD, CKD III, dyslipidemia, morbid obesity and other medical problems as below who presents from home after fall. She is being managed for the following: Periprosthetic fracture around internal prosthetic left knee joint: Plan: Tibia/fibula XRwith fracture of the proximal tibia at the distal aspect of the tibial component of the knee arthroplasty. There is associated soft tissue swelling Left hip x-ray showedno evidence of acute osseous injury. Ortho Recommended conservative management and hinged knee brace with nonweightbearing If conservative management fails, the patient may require ORIF versus a revision tibial component to be placed. If surgery required, patient will need to be transferred to tertiary care facility to get it done Hinged knee brace to be on at all times. May loosen for bathing. No ROM of knee at this time.--> I have instructed nursing to reach out to orthopedic surgery to discuss their concerns about the brace. continue PT/OT outpatient follow up with [facility] Reduce gabapentin to 100mg BID, continue scheduled acetaminophen, Asymptomatic COVID-19 Patient has been boosted against Covid. Home oxygen is 3 L as needed and at bedtime. Patient was tested for Covid test prior to discharge to SNF on 10/08, came back positive Patient requiring baseline oxygen, afebrile, respiratory mason stable. Patient having diarrhea, patient not sure whether it is worsening or getting better. We will continue to follow. No indication for steroid or remdesivir at this point, closely monitor, incentive spirometer E coli UTI Plan: Urine culture grew E. coli pansensitive. Status post treatment. Uncontrolled type II diabetes mellitus: Plan: A1c this admission 13.5. Currently on Lantus and insulin sliding scale during the hospital course, BG relatively controlledd. Home regimen includes Lantus 68 unit BID, 10 unit TIDM Novolog, Trulicity Continue monitor blood sugar. [facility] upon DC. nurse educator john Hyperkalemia: -Resolved Combined congestive systolic and diastolic heart failure: Plan: Hold lasix for now ELOY on CKD stage III- ELOY resolved. baseline creatinine around 1.6-1.8 Admitting creatinine was 3.08. Cr has remained stable at 1.7, today bumped to 2--> will hold lasix. Repeat BMP tomorrow Other chronic medical conditions: HTN, asthma, complete heart block, HLD, PVD, morbid obesity Continue with/resume home meds as and when appropriate. DVT Ppx: on heparin subcu Code status: FULL Dispo: Patient is medically stable for discharge. Needs SNF placement once she finishes her 10 day quarantine period. Will need ortho re-evaluation of left leg immobilizer prior to discharge Admission and Anticipated Discharge Date Admission Date: September 22, 2021 Subjective Patient reports pain is better Nursing concerned that knee immobilizer is not working properly Physical Exam Physical Exam: Laying in bed with eyes closed, awakened easily, no acute distress Respiratory: breathing comfortably on 1 L NC, no wheezing/stridor Cardiovascular: regular rate and rhythm, no murmurs/rubs Gastrointestinal (Abdomen): soft Musculoskeletal: left leg in immobilizer--straps are unfastened No lower extremity swelling Neurologic: awake, alert Results & Data Results & Data ([facility]) Vital Signs (Past 12 Hours) Vital Signs Temp Pulse Pulse Resp BP Pulse Ox 10/18/21 08:06 36.8 C 72 17 122/64 98 10/18/21 04:19 36.7 C 74 20 111/75 90 Laboratory Results [facility] 10/18/21 05:29 Sodium 136 Potassium 4.5 Chloride 96 L Carbon Dioxide 34 H BUN 37 H Creatinine 2.04 H D Glucose 87 Calcium 9.8 Medications Administered Current Inpatient Medications Acetaminophen (Acetaminophen 500 Mg Tab) 1,000 mg PO TID [facility] Stop: 11/15/21 20:59 Last Admin: 10/18/21 08:45 Dose: 1,000 mg Documented by: Hydrocodone Bitart/Acetaminophen (Hydrocodone/Acetamophen 5/325mg Tab) 1 tab PO Q6H PRN PRN Reason: Severe Pain Stop: 10/19/21 09:31 Last Admin: 10/16/21 14:18 Dose: 1 tab Documented by: Albuterol (Albuterol 0.083% Nebu Soln 3 Ml Vial) 2.5 mg INH Q4H PRN; Protocol PRN Reason: Shortness Of Breath Or Wheezing Stop: 10/22/21 21:13 Aspirin (Aspirin 81 Mg Ectab) 81 mg PO DAILY JEY Stop: 10/23/21 08:59 Last Admin: 10/18/21 08:45 Dose: 81 mg Documented by: Budesonide (Budesonide Aq (Rhinocort Aq) Nasal [place] 32 Mcg) 2 sprays DOROTHY DAILY JEY Stop: 10/23/21 08:59 Last Admin: 10/18/21 08:45 Dose: 2 sprays Documented by: Carvedilol (Carvedilol 12.5 Mg Tab) 12.5 mg PO BID JEY Stop: 10/22/21 21:13 Last Admin: 10/18/21 08:45 Dose: 12.5 mg Documented by: Clopidogrel Bisulfate (Clopidogrel Bisulfate 75 Mg Tab) 75 mg PO DAILY JEY Stop: 10/23/21 08:59 Last Admin: 10/18/21 08:46 Dose: 75 mg Documented by: Cyanocobalamin (Cyanocobalamin (Vitamin B-12) 100 Mcg Tablet) 100 mcg PO DAILY JEY Stop: 10/23/21 08:59 Last Admin: 10/18/21 08:46 Dose: 100 mcg Documented by: Dextrose (Dextrose 50% 50 Ml Syringe) 25 - 50 ml IV UD PRN; Protocol PRN Reason: Hypoglycemia Protocol Stop: 10/22/21 18:59 Diclofenac Sodium (Diclofenac Sod 1% Gel 100 Gm Tube) 4 gm EXT QID JEY Stop: 10/22/21 21:13 Last Admin: 10/18/21 08:46 Dose: 4 gm Documented by: Furosemide (Furosemide 40 Mg Tab) 40 mg PO BID17 JEY Stop: 11/04/21 16:59 Last Admin: 10/17/21 18:27 Dose: 40 mg Documented by: Gabapentin (Gabapentin 100 Mg Cap) 100 mg PO BID JEY Stop: 11/16/21 20:59 Last Admin: 10/18/21 08:46 Dose: 100 mg Documented by: Glucagon (Glucagon For Inj 1 Mg Vial) 1 mg IM UD PRN; Protocol PRN Reason: Hypoglycemia Protocol Stop: 10/22/21 18:59 Glucose (Glucose 40% Gel 15 Gm Tube) 15 - 30 gm PO UD PRN; Protocol PRN Reason: Hypoglycemia Protocol Stop: 10/22/21 18:59 Glucose (Glucose 10 Tabs/Tube) 4 - 8 tabs PO UD PRN; Protocol PRN Reason: Hypoglycemia Protocol Stop: 10/22/21 18:59 Heparin Sodium (Porcine) (Heparin Sod 5,000 Unit/0.5 Ml Vial) 5,000 units SQ Q8 [facility] Stop: 10/24/21 21:59 Last Admin: 10/18/21 06:25 Dose: 5,000 units Documented by: Insulin Aspart (Insulin Aspart Per Unit) 0 units SC ACHS [facility]; Protocol Stop: 11/06/21 07:29 Last Admin: 10/18/21 08:43 Dose: 24 units Documented by: Insulin Glargine (Insulin Glargine Solostar 100 Units/Ml 3 Ml Pen) 20 units SC BID [facility] Stop: 11/16/21 20:59 Last Admin: 10/18/21 08:47 Dose: 20 units Documented by: Lidocaine (Lidocaine 5% 1 Patch) 1 patch TD QAM [facility] Stop: 11/03/21 09:44 Last Admin: 10/18/21 08:48 Dose: 1 patch Documented by: Loratadine (Loratadine 10 Mg Tab) 10 mg PO DAILY PRN PRN Reason: Allergy Symptoms Stop: 10/22/21 21:13 Last Admin: 10/08/21 08:16 Dose: 10 mg Documented by: Magnesium Hydroxide (Magnesium Hydroxide Susp 30 Ml Udc) 30 ml PO Q6H PRN PRN Reason: Constipation Stop: 11/04/21 10:23 Miscellaneous (Carbohydrates For Hypoglycemia ) 15 - 30 gm PO UD PRN PRN Reason: Hypoglycemia Treatment Stop: 10/22/21 18:59 Miscellaneous (Remove Lidoderm Patch) 1 ea N/A DAILY@2100 [facility] Stop: 11/03/21 20:59 Last Admin: 10/17/21 20:37 Dose: 1 ea Documented by: Miscellaneous Information (Pharmacy Glycemic Mgmt Consult) 1 ea N/A UD PRN PRN Reason: Consult Stop: 10/22/21 18:08 Montelukast Sodium (Montelukast Sodium 10 Mg Tablet) 10 mg PO DAILY [facility] Stop: 10/23/21 08:59 Last Admin: 10/18/21 08:48 Dose: 10 mg Documented by: Multivitamins/Minerals (Cerovite Adv Formula Tab) 1 tab PO DAILY [facility] Stop: 10/23/21 08:59 Last Admin: 10/18/21 08:48 Dose: 1 tab Documented by: Ondansetron HCl (Ondansetron Inj 2 Mg/Ml 2 Ml Vial) 4 mg IV Q6H PRN PRN Reason: Nausea Stop: 10/22/21 21:13 Polyethylene Glycol (Polyethylene (Miralax) 17 Gm Pack) 17 gm PO DAILY PRN PRN Reason: Constipation Stop: 10/22/21 21:13 Polyethylene Glycol (Polyethylene (Miralax) 17 Gm Pack) 17 gm PO DAILY JEY Stop: 11/05/21 08:59 Last Admin: 10/18/21 08:56 Dose: 17 gm Documented by: Potassium Chloride (Potassium Chloride Crtab 20 Meq Tabcr) 20 meq PO BID17 JEY Stop: 11/01/21 10:14 Last Admin: 10/17/21 18:27 Dose: 20 meq Documented by: Rosuvastatin Calcium (Rosuvastatin Calcium 20 Mg Tab) 40 mg PO DAILY [facility] Stop: 10/23/21 08:59 Last Admin: 10/18/21 08:49 Dose: 40 mg Documented by: Sodium Chloride (Sodium Chloride 0.65% Na Soln 45 Ml ([place])) 2 sprays NA Q4H JEY Stop: 11/01/21 14:14 Last Admin: 10/18/21 10:34 Dose: 2 sprays Documented by: Tramadol HCl (Tramadol Hcl 50 Mg Tablet) 50 mg PO Q4H PRN PRN Reason: Moderate Pain Stop: 10/24/21 00:26 Last Admin: 10/17/21 20:36 Dose: 50 mg Documented by: Triamcinolone Acetonide (Triamcinolone Acet 0.025% Cr 15 Gm Tube) 1 appln TOP BID [facility] Stop: 10/22/21 21:13 Last Admin: 10/18/21 08:49 Dose: 1 appln Documented by: Umeclidinium [place] (Umeclidinium [place] 62.5mcg/Blister 7 Puffs/Inhaler) 1 puffs INH QAM [facility] Stop: 10/23/21 08:59 Last Admin: 10/18/21 08:49 Dose: 1 puffs Documented by:
[2021-10-18] MEDS: INSULIN GLARGINE SOLOSTAR 100 UNITS/ML 3 ML PEN SC SCH (21:21)
[2021-10-19] MEDS: SODIUM CHLORIDE 0.65% NA SOLN 45 ML (OCEAN) SCH ×6 (02:13→20:48)
[2021-10-19] MEDS: HEPARIN SOD 5,000 UNIT/0.5 ML VIAL SQ SCH ×3 (05:14→20:45)
[2021-10-19 07:04] LABS: BUN Creatinine Ratio 18.7 (10-20); Calcium 9.7 mg/dl (8.5-10.1); Creatinine Clr Calc Pharmacy 28.8 ml/min; Est GFR (African American) 25.3 ml/min; Est GFR (Non-African American) 21.8 ml/min; Potassium 4.4 mmol/L (3.5-5.1)
[2021-10-19] MEDS: HYDROCODONE/ACETAMOPHEN 5/325MG TAB PO PRN (07:39)
[2021-10-19] MEDS: ACETAMINOPHEN 500 MG TAB PO SCH ×3 (08:42→20:44)
[2021-10-19] MEDS: CEROVITE ADV FORMULA TAB PO SCH (08:49)
[2021-10-19] MEDS: carvediloL 12.5 MG TAB PO SCH ×2 (08:49→20:44)
[2021-10-19] MEDS: MONTELUKAST SODIUM 10 MG TABLET PO SCH (08:49)
[2021-10-19] MEDS: CLOPIDOGREL BISULFATE 75 MG TAB PO SCH (08:49)
[2021-10-19] MEDS: ROSUVASTATIN CALCIUM 20 MG TAB PO SCH (08:50)
[2021-10-19] MEDS: TRIAMCINOLONE ACET 0.025% CR 15 GM TUBE TOP SCH ×2 (08:50→20:45)
[2021-10-19] MEDS: ASPIRIN 81 MG ECTAB PO SCH (08:50)
[2021-10-19] MEDS: BUDESONIDE AQ (RHINOCORT AQ) NASAL SPRAY 32 MCG NAE SCH (08:51)
[2021-10-19] MEDS: GABAPENTIN 100 MG CAP PO SCH ×2 (08:52→20:44)
[2021-10-19] MEDS: CYANOCOBALAMIN (B-12) 100 MCG TABLET PO SCH (08:53)
[2021-10-19] MEDS: DICLOFENAC SOD 1% GEL 100 GM TUBE EXT SCH ×4 (08:53→20:45)
[2021-10-19] MEDS: INSULIN ASPART PER UNIT SC SCH ×4 (09:21→20:11)
[2021-10-19] MEDS: INSULIN GLARGINE SOLOSTAR 100 UNITS/ML 3 ML PEN SC SCH ×2 (09:24→22:08)
[2021-10-19] MEDS: UMECLIDINIUM BROMIDE 62.5MCG/BLISTER 7 PUFFS/INHALER INH SCH (09:25)
[2021-10-19] MEDS: POLYETHYLENE (MIRALAX) 17 GM PACK PO SCH (10:27)
--- NOTE | 2021-10-19 10:41 | Pharmacy Report ---
Pharmacy Glycemic Short Note 2 - Date of Service October 19, 2021 - Glycemic Short BSG Results (Last 24 hours): 10/18/21 10/18/21 10/18/21 11:34 16:40 20:32 Glucose POC Glucose 208 H 174 H 144 H 10/19/21 10/19/21 05:59 07:05 Glucose 145 H POC Glucose 156 H OUTPATIENT ANTIDIABETIC REGIMEN: * Lantus 68 units SC BID * NovoLog 10 units SC TID * Trulicity 3 mg SC once weekly * HbA1c = 13.5% (09/23/21) ASSESSMENT: 10/19: * Stressors stable * AM fasting BSG has increased significantly after significant Lantus dose reduction x2 days - will increase again, but not quite back to previous that contributed to AM fasting BSG of 77 mg/dL on 10/17 * Lunch BSG consistently elevated when patient consumes a large amount of CHO with breakfast - will tighten breakfast CHO ratio 10/17: * Downtrend in BSGs noted over past 24 hours with fasting BSG of 89 mg/dL this morning * PO intake reduced per RN, will decrease Lantus significantly today and add Novolog safety check overnight * No change to Novolog scale today 10/16: * BSGs overall well controlled over the past 24 hours. Fasting BSG significantly improved with 110 units of basal insulin yesterday. * Patient continued to tolerate a diet and is reasonably well controlled on current NovoLog scale. 10/14 * BSGs still somewhat labile ([phone]). AM BSG came down slightly to 185mg/dL, however still elevated. Evening BSGs yesterday came down into goal range. * T2DM diet ordered. Stressors stable. * AM Lantus dose increased to 55 today. Plan for 50 units tonight (5% increase in basal). Novolog loosened this AM d/t evening BSG 119 last night, however tightened again back to 10/3 this afternoon as BSGs trending up at lunch. PLAN FOR INPATIENT GLYCEMIC CONTROL: * Hold outpatient Trulicity * Basal insulin * Lantus 40-50 units SC BID, based on BSG * Bolus insulin * NovoLog per scale ACHS or Q6hrs while NPO * Goal Range: Low 110 mg/dL - High 140 mg/dL * Correction Factor: 10 mg/dL/unit * Carb ratio: 2.5 g CHO/unit with breakfast, 3 g CHO/unit with lunch, dinner, and at bedtime PLAN FOR DISCHARGE: * HbA1c of 13.5% is well above goal of less than 8% for this patient. Recommend referral to receptionist scheduler or [facility] clinic for help with managing T2DM. * DM educator met with patient and patient reports eating very little at home.
[2021-10-19] MEDS: LIDOCAINE 5% 1 PATCH TD SCH (11:00)
[2021-10-19] MEDS: traMADol HCL 50 MG TABLET PO PRN (17:45)
--- NOTE | 2021-10-19 20:25 | Hospitalist Progress Note ---
Date of Service October 19, 2021 Assessment & Plan (1) Periprosthetic fracture around internal prosthetic left knee joint: Plan: 76yo F with a PMH of DM II, asthma, severe sleep apnea on 3L NC HS, combined systolic and diastolic heart failure, h/o complete heart block s/p pacemaker placement, LBBB, PVD, CKD III, dyslipidemia, morbid obesity and other medical problems as below who presents from home after fall. She is being managed for the following: Periprosthetic fracture around internal prosthetic left knee joint: Plan: Tibia/fibula XRwith fracture of the proximal tibia at the distal aspect of the tibial component of the knee arthroplasty. There is associated soft tissue swelling Left hip x-ray showedno evidence of acute osseous injury. Ortho Recommended conservative management and hinged knee brace with nonweightbearing If conservative management fails, the patient may require ORIF versus a revision tibial component to be placed. If surgery required, patient will need to be transferred to tertiary care facility to get it done Hinged knee brace to be on at all times. May loosen for bathing. No ROM of knee at this time. continue PT/OT outpatient follow up with [facility] Reduce gabapentin to 100mg BID, continue scheduled acetaminophen, Asymptomatic COVID-19 Patient has been boosted against Covid. Home oxygen is 3 L as needed and at bedtime. Patient was tested for Covid test prior to discharge to SNF on 10/08, came back positive Patient requiring baseline oxygen, afebrile, respiratory mason stable. Patient having diarrhea, patient not sure whether it is worsening or getting better. We will continue to follow. No indication for steroid or remdesivir at this point, closely monitor, incentive spirometer E coli UTI Plan: Urine culture grew E. coli pansensitive. Status post treatment. Uncontrolled type II diabetes mellitus: Plan: A1c this admission 13.5. Currently on Lantus and insulin sliding scale during the hospital course, BG relatively controlledd. Home regimen includes Lantus 68 unit BID, 10 unit TIDM Novolog, Trulicity Continue monitor blood sugar. [facility] clinic upon DC. 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 ELOY on CKD stage III- ELOY resolved. baseline creatinine around 1.6-1.8 Admitting creatinine was 3.08. Cr has remained stable at 1.7, today bumped to 2.14--> will hold lasix. Repeat BMP tomorrow Other chronic medical conditions: HTN, asthma, complete heart block, HLD, PVD, morbid obesity Continue with/resume home meds as and when appropriate. DVT Ppx: on heparin subcu Code status: FULL Dispo: Patient is medically stable for discharge. Needs SNF placement, [facility]. Admission and Anticipated Discharge Date Admission Date: September 22, 2021 Subjective Patient seen and examined at bedside for periprosthetic fracture around internal prosthetic left knee joint and asymptomatic COVID-19. Patient lying in bed, no new issues overnight. On 2 L nasal cannula oxygen, NAD, reports eating better. Patient denies fever/chills/chest pain/palpitations/belly pain/increased shortness of breath/other review of symptoms. Physical Exam Physical Exam: GENERAL: Alert and oriented x3. NAD, on 2L O2 HEENT: No pallor, no icterus. Pupils equal, round and reactive to light. Oral mucosa moist. NECK: No JVD, no neck masses. HEART: S1 and S2 heard. Regular rate and rhythm. No murmur, no gallop. RESPIRATORY SYSTEM: Normal AP diameter. No accessory muscle use. No wheezing, no crackles. ABDOMEN: Soft, bowel sounds present, rt side tendernss, no distention. CENTRAL NERVOUS SYSTEM: No facial droop. Speech is clear. Obeys simple commands. Moves extremities. EXTREMITIES: RLE trace edema, LLE with splint and chronic skin changes. no erythema seen. Urinary catheter with light yellow urine collection noted. Results & Data Results & Data ([facility]) Vital Signs (Past 12 Hours) Vital Signs Temp Pulse Resp BP Pulse Ox 10/19/21 20:05 37.0 C 78 18 126/52 L 96 10/19/21 15:42 36.7 C 75 20 116/51 L 95
[2021-10-20] MEDS: SODIUM CHLORIDE 0.65% NA SOLN 45 ML (OCEAN) SCH ×6 (03:35→21:07)
[2021-10-20] MEDS: HEPARIN SOD 5,000 UNIT/0.5 ML VIAL SQ SCH ×3 (05:03→21:07)
[2021-10-20 07:08] LABS: BUN Creatinine Ratio 20.7 (10-20); Calcium 9.6 mg/dl (8.5-10.1); Creatinine Clr Calc Pharmacy 33.4 ml/min; Est GFR (African American) 30.3 ml/min; Est GFR (Non-African American) 26.2 ml/min; Potassium 4.5 mmol/L (3.5-5.1)
[2021-10-20] MEDS: ASPIRIN 81 MG ECTAB PO SCH (09:41)
[2021-10-20] MEDS: ACETAMINOPHEN 500 MG TAB PO SCH ×3 (09:41→21:05)
[2021-10-20] MEDS: carvediloL 12.5 MG TAB PO SCH ×2 (09:42→21:04)
[2021-10-20] MEDS: CLOPIDOGREL BISULFATE 75 MG TAB PO SCH (09:42)
[2021-10-20] MEDS: CYANOCOBALAMIN (B-12) 100 MCG TABLET PO SCH (09:43)
[2021-10-20] MEDS: LIDOCAINE 5% 1 PATCH TD SCH (09:44)
[2021-10-20] MEDS: DICLOFENAC SOD 1% GEL 100 GM TUBE EXT SCH ×4 (09:44→21:03)
[2021-10-20] MEDS: GABAPENTIN 100 MG CAP PO SCH ×2 (09:44→21:07)
[2021-10-20] MEDS: MONTELUKAST SODIUM 10 MG TABLET PO SCH (09:45)
[2021-10-20] MEDS: CEROVITE ADV FORMULA TAB PO SCH (09:45)
[2021-10-20] MEDS: ROSUVASTATIN CALCIUM 20 MG TAB PO SCH (09:46)
[2021-10-20] MEDS: BUDESONIDE AQ (RHINOCORT AQ) NASAL SPRAY 32 MCG NAE SCH (09:48)
[2021-10-20] MEDS: UMECLIDINIUM BROMIDE 62.5MCG/BLISTER 7 PUFFS/INHALER INH SCH (09:48)
[2021-10-20] MEDS: TRIAMCINOLONE ACET 0.025% CR 15 GM TUBE TOP SCH ×2 (09:49→21:04)
[2021-10-20] MEDS: INSULIN ASPART PER UNIT SC SCH ×4 (09:49→20:59)
[2021-10-20] MEDS: POLYETHYLENE (MIRALAX) 17 GM PACK PO SCH (09:56)
[2021-10-20] MEDS: INSULIN GLARGINE SOLOSTAR 100 UNITS/ML 3 ML PEN SC SCH ×2 (10:03→21:00)
[2021-10-20] MEDS: traMADol HCL 50 MG TABLET PO PRN (11:17)
--- NOTE | 2021-10-20 18:03 | Hospitalist Progress Note ---
Date of Service October 20, 2021 Assessment & Plan (1) Periprosthetic fracture around internal prosthetic left knee joint: Plan: 76yo F with a PMH of DM II, asthma, severe sleep apnea on 3L NC HS, combined systolic and diastolic heart failure, h/o complete heart block s/p pacemaker placement, LBBB, PVD, CKD III, dyslipidemia, morbid obesity and other medical problems as below who presents from home after fall. She is being managed for the following: Periprosthetic fracture around internal prosthetic left knee joint: Plan: Tibia/fibula XRwith fracture of the proximal tibia at the distal aspect of the tibial component of the knee arthroplasty. There is associated soft tissue swelling Left hip x-ray showedno evidence of acute osseous injury. Ortho Recommended conservative management and hinged knee brace with nonweightbearing If conservative management fails, the patient may require ORIF versus a revision tibial component to be placed. If surgery required, patient will need to be transferred to tertiary care facility to get it done Hinged knee brace to be on at all times. May loosen for bathing. No ROM of knee at this time. continue PT/OT outpatient follow up with [facility] Reduce gabapentin to 100mg BID, continue scheduled acetaminophen, Asymptomatic COVID-19 Patient has been boosted against Covid. Home oxygen is 3 L as needed and at bedtime. Patient was tested for Covid test prior to discharge to SNF on 10/08, came back positive Patient requiring baseline oxygen, afebrile, respiratory mason stable. Patient having diarrhea, patient not sure whether it is worsening or getting better. We will continue to follow. No indication for steroid or remdesivir at this point, closely monitor, incentive spirometer E coli UTI Plan: Urine culture grew E. coli pansensitive. Status post treatment. Uncontrolled type II diabetes mellitus: Plan: A1c this admission 13.5. Currently on Lantus and insulin sliding scale during the hospital course, BG relatively controlledd. Home regimen includes Lantus 68 unit BID, 10 unit TIDM Novolog, Trulicity Continue monitor blood sugar. [facility] clinic upon DC. clinical informatics educator john Hyperkalemia: -Resolved Combined congestive systolic and diastolic heart failure: Plan: Continue with home dose Lasix with potassium supplementation. ELOY on CKD stage III- ELOY resolved. baseline creatinine around 1.6-1.8 Admitting creatinine was 3.08. Cr has remained stable at 1.7, resolved, continue with home dose Lasix with potassium supplementation. Other chronic medical conditions: HTN, asthma, complete heart block, HLD, PVD, morbid obesity Continue with/resume home meds as and when appropriate. DVT Ppx: on heparin subcu Code status: FULL Dispo: Patient is medically stable for discharge. Needs SNF placement, [facility]. Admission and Anticipated Discharge Date Admission Date: September 22, 2021 Subjective Patient seen and examined at bedside for periprosthetic fracture around internal prosthetic left knee joint and asymptomatic COVID-19. Patient lying in bed, no new issues overnight. On 2 L nasal cannula oxygen, NAD, reports eating better and sleeping better. Patient denies fever/chills/chest pain/palpitations/belly pain/increased shortness of breath/other review of symptoms. Physical Exam Physical Exam: GENERAL: Alert and oriented x3. NAD, on 2L O2 HEENT: No pallor, no icterus. Pupils equal, round and reactive to light. Oral mucosa moist. NECK: No JVD, no neck masses. HEART: S1 and S2 heard. Regular rate and rhythm. No murmur, no gallop. RESPIRATORY SYSTEM: Normal AP diameter. No accessory muscle use. No wheezing, no crackles. ABDOMEN: Soft, bowel sounds present, rt side tendernss, no distention. CENTRAL NERVOUS SYSTEM: No facial droop. Speech is clear. Obeys simple comman ds. Moves extremities. EXTREMITIES: RLE trace edema, LLE with splint and chronic skin changes. no erythema seen. Urinary catheter with light yellow urine collection noted. Results & Data Results & Data ([facility]) Vital Signs (Past 12 Hours) Vital Signs Temp Pulse Resp BP Pulse Ox 10/20/21 16:05 37.1 C 61 18 108/52 L 99 10/20/21 07:36 36.6 C 70 16 125/65 94
[2021-10-21] MEDS: traMADol HCL 50 MG TABLET PO PRN (05:15)
[2021-10-21] MEDS: SODIUM CHLORIDE 0.65% NA SOLN 45 ML (OCEAN) SCH ×3 (05:15→11:32)
[2021-10-21] MEDS: HEPARIN SOD 5,000 UNIT/0.5 ML VIAL SQ SCH (05:16)
[2021-10-21] MEDS: POTASSIUM CHLORIDE CRTAB 20 MEQ TABCR PO SCH (08:04)
[2021-10-21] MEDS: ACETAMINOPHEN 500 MG TAB PO SCH (08:06)
[2021-10-21] MEDS: POLYETHYLENE (MIRALAX) 17 GM PACK PO SCH (08:07)
[2021-10-21] MEDS: FUROSEMIDE 40 MG TAB PO SCH (08:07)
[2021-10-21] MEDS: GABAPENTIN 100 MG CAP PO SCH (08:09)
[2021-10-21] MEDS: CLOPIDOGREL BISULFATE 75 MG TAB PO SCH (08:10)
[2021-10-21] MEDS: ASPIRIN 81 MG ECTAB PO SCH (08:10)
[2021-10-21] MEDS: ROSUVASTATIN CALCIUM 20 MG TAB PO SCH (08:10)
[2021-10-21] MEDS: MONTELUKAST SODIUM 10 MG TABLET PO SCH ×2 (08:10→08:20)
[2021-10-21] MEDS: carvediloL 12.5 MG TAB PO SCH (08:11)
[2021-10-21] MEDS: CEROVITE ADV FORMULA TAB PO SCH (08:11)
[2021-10-21] MEDS: DICLOFENAC SOD 1% GEL 100 GM TUBE EXT SCH (08:12)
[2021-10-21] MEDS: CYANOCOBALAMIN (B-12) 100 MCG TABLET PO SCH (08:12)
[2021-10-21] MEDS: LIDOCAINE 5% 1 PATCH TD SCH (08:13)
[2021-10-21] MEDS: TRIAMCINOLONE ACET 0.025% CR 15 GM TUBE TOP SCH (08:14)
[2021-10-21] MEDS: INSULIN ASPART PER UNIT SC SCH ×2 (08:30→12:16)
[2021-10-21] MEDS: INSULIN GLARGINE SOLOSTAR 100 UNITS/ML 3 ML PEN SC SCH (08:30)
[2021-10-21] MEDS: BUDESONIDE AQ (RHINOCORT AQ) NASAL SPRAY 32 MCG NAE SCH (09:46)
[2021-10-21] MEDS: UMECLIDINIUM BROMIDE 62.5MCG/BLISTER 7 PUFFS/INHALER INH SCH (09:46)
--- NOTE | 2021-10-21 10:56 | Hospitalist Progress Note ---
Date of Service October 21, 2021 Assessment & Plan (1) Periprosthetic fracture around internal prosthetic left knee joint: Plan: 76yo F with a PMH of DM II, asthma, severe sleep apnea on 3L NC HS, combined systolic and diastolic heart failure, h/o complete heart block s/p pacemaker placement, LBBB, PVD, CKD III, dyslipidemia, morbid obesity and other medical problems as below who presents from home after fall. She is being managed for the following: Periprosthetic fracture around internal prosthetic left knee joint: Plan: Tibia/fibula XRwith fracture of the proximal tibia at the distal aspect of the tibial component of the knee arthroplasty. There is associated soft tissue swelling Left hip x-ray showedno evidence of acute osseous injury. Ortho Recommended conservative management and hinged knee brace with nonweightbearing If conservative management fails, the patient may require ORIF versus a revision tibial component to be placed. If surgery required, patient will need to be transferred to tertiary care facility to get it done Hinged knee brace to be on at all times. May loosen for bathing. No ROM of knee at this time. continue PT/OT outpatient follow up with [facility] Reduce gabapentin to 100mg BID, continue scheduled acetaminophen, Asymptomatic COVID-19 Patient has been boosted against Covid. Home oxygen is 3 L as needed and at bedtime. Patient was tested for Covid test prior to discharge to SNF on 10/08, came back positive Patient requiring baseline oxygen, afebrile, respiratory mason stable. Patient having diarrhea, patient not sure whether it is worsening or getting better. We will continue to follow. No indication for steroid or remdesivir at this point, closely monitor, incentive spirometer No respiratory symptoms from Covid, patient can be off of isolation from Covid. E coli UTI Plan: Urine culture grew E. coli pansensitive. Status post treatment. Uncontrolled type II diabetes mellitus: Plan: A1c this admission 13.5. Currently on Lantus and insulin sliding scale during the hospital course, BG relatively controlledd. Home regimen includes Lantus 68 unit BID, 10 unit TIDM Novolog, Trulicity Continue monitor blood sugar. [facility] upon DC. epilepsy physician john Hyperkalemia: -Resolved Combined congestive systolic and diastolic heart failure: Plan: Continue with home dose Lasix with potassium supplementation. ELOY on CKD stage III- ELOY resolved. baseline creatinine around 1.6-1.8 Admitting creatinine was 3.08. Cr has remained stable at 1.7, resolved, continue with home dose Lasix with potassium supplementation. Other chronic medical conditions: HTN, asthma, complete heart block, HLD, PVD, morbid obesity Continue with/resume home meds as and when appropriate. DVT Ppx: on heparin subcu Code status: FULL Dispo: Patient is medically stable for discharge. Needs SNF placement, [facility]. Patient is off of isolation for Covid. Admission and Anticipated Discharge Date Admission Date: September 22, 2021 Subjective Patient seen and examined at bedside for periprosthetic fracture around internal prosthetic left knee joint and asymptomatic COVID-19. Patient lying in bed, no new issues overnight. On 2 L nasal cannula oxygen, NAD, reports eating better and doing better. Pain at knee under control with pain medications. Patient denies fever/chills/chest pain/palpitations/belly pain/increased shortness of breath/other review of symptoms. Physical Exam Physical Exam: GENERAL: Alert and oriented x3. NAD, on 2L O2 HEENT: No pallor, no icterus. Pupils equal, round and reactive to light. Oral mucosa moist. NECK: No JVD, no neck masses. HEART: S1 and S2 heard. Regular rate and rhythm. No murmur, no gallop. RESPIRATORY SYSTEM: Normal AP diameter. No accessory muscle use. No wheezing, no crackles. ABDOMEN: Soft, bowel sounds present, non tender, no distention. CENTRAL NERVOUS SYSTEM: No facial droop. Speech is clear. Obeys simple commands. Moves extremities. EXTREMITIES: RLE trace edema, LLE with splint and chronic skin changes and trace to 1+ emmanuel. no erythema seen. Urinary catheter with light yellow urine collection noted. Results & Data Results & Data ([facility]) Vital Signs (Past 12 Hours) Vital Signs Temp Pulse Pulse Resp BP BP Pulse Ox 10/21/21 08:25 36 C L 69 12 137/84 98 10/21/21 05:09 36.4 C L 70 18 111/56 L 97 10/20/21 23:15 36.6 C 67 18 121/75 94
--- NOTE | 2021-10-21 11:52 | Discharge Summary ---
Date of Service October 21, 2021 Admission HPI Per Admitting Provider This is a 76yo F with a PMH of DM II, asthma, severe sleep apnea on 3L NC HS, combined systolic and diastolic heart failure, h/o complete heart block s/p pacemaker placement, LBBB, PVD, CKD III, dyslipidemia, morbid obesity and other medical problems as below who presents from home after fall. Was at home and feeling cold and ambulated over to heater when she fell onto left knee. Denies head trauma or LOC. Received 8mg morphine total en route to hospital and has seemed intermittently confused and tired since then, per at bedside. Normally ambulates while holding onto things at home for stability. Denies any fevers, chills, cough, congestion,N/V/D, abdominal pain, dysuria prior to her fall. She is on aspirin and Plavix for PVD. History of bilateral knee replacements in 2003 at [facility] [place]. ED provider discussed with Dr. Fallon [employer] dean for [facility] – [place] who reviewed images and feels this is likely non-operative. Ortho to see tomorrow. Did not take her insulin today and is unsure about other AM medications. Admission Exam Per Admitting Provider PE: Obese pt, in distress due to pain Cardiac: normal S1/S2, no murmur Lungs: CTA, no wheezing or crackles Abd: obese abd, mild discomfort to palpation of the lower abd, soft MSK: hematoma below the L knee, and TTP of the L knee Psych: pt was drowsy and sleepy Principal Diagnosis Periprosthetic fracture around internal prosthetic left knee joint Asymptomatic COVID-19 Uncontrolled type 2 diabetes mellitus Discharge Exam GENERAL: Alert and oriented x3. NAD, on 2L O2 HEENT: No pallor, no icterus. Pupils equal, round and reactive to light. Oral mucosa moist. NECK: No JVD, no neck masses. HEART: S1 and S2 heard. Regular rate and rhythm. No murmur, no gallop. RESPIRATORY SYSTEM: Normal AP diameter. No accessory muscle use. No wheezing, no crackles. ABDOMEN: Soft, bowel sounds present, non tender, no distention. CENTRAL NERVOUS SYSTEM: No facial droop. Speech is clear. Obeys simple commands. Moves extremities. EXTREMITIES: RLE trace edema, LLE with splint and chronic skin changes and trace to 1+ edema. no erythema seen. Urinary catheter with light yellow urine collection noted. Discharge Data Allergies Allergy/AdvReac Type Severity Reaction Status Date / Time fluticasone Allergy Severe WATER ON Verified 09/22/21 17:45 LUNGS salmeterol Allergy Severe WATER ON Verified 09/22/21 17:45 LUNGS propoxyphene Allergy Mild FROM Verified 09/22/21 17:45 DARVOCET benzocaine Allergy Unknown Unknown Verified 10/03/21 12:39 mold Allergy Unknown Unknown Verified 10/03/21 12:39 prednisone AdvReac Intermediate HYPERGLYCEM Verified 09/22/21 17:45 IA acetaminophen [From Vicodin] AdvReac Mild hallucinati Verified 09/24/21 00:31 ons hydrocodone [From Vicodin] AdvReac Mild hallucinati Verified 09/24/21 00:31 ons oxycodone AdvReac Mild Hallucinati Unverified 10/03/21 12:39 ng Consultations 09/22/21 17:40 ED Decision to Admit Stat 09/22/21 18:16 Consult Orthopedic Surgery Routine 09/24/21 09:10 Consult Nephrology Routine Ordered Studies 09/23/21 02:32 CT head/brain wo con Urgent 09/25/21 13:30 US renal/blad retro comp Routine 09/27/21 10:45 CT head/brain wo con Routine Diabetes Follow up Diabetes Follow-up Needed for HgbA1c >9% Hospital Course (1) Periprosthetic fracture around internal prosthetic left knee joint: 76yo F with a PMH of DM II, asthma, severe sleep apnea on 3L NC HS, combined systolic and diastolic heart failure, h/o complete heart block s/p pacemaker placement, LBBB, PVD, CKD III, dyslipidemia, morbid obesity and other medical problems as below who presents from home after fall. She was managed for the following: Periprosthetic fracture around internal prosthetic left knee joint: Plan: Tibia/fibula XRwith fracture of the proximal tibia at the distal aspect of the tibial component of the knee arthroplasty. There is associated soft tissue swelling Left hip x-ray showedno evidence of acute osseous injury. Ortho Recommended conservative management and hinged knee brace with nonweightbearing If conservative management fails, the patient may require ORIF versus a revision tibial component to be placed. If surgery required, patient will need to be transferred to tertiary care facility to get it done Hinged knee brace to be on at all times. May loosen for bathing. No ROM of knee at this time. continue PT/OT outpatient follow up with [facility] in 2 weeks time upon discharge. Reduce gabapentin to 100mg BID, continue scheduled acetaminophen, continue with tramadol as needed for severe pain. As discussed at the bedside, you will need to be in contact with your PCP or orthopedics for ongoing pain medication prescription. Asymptomatic COVID-19 Patient has been boosted against Covid. Home oxygen is 3 L as needed and at bedtime. Patient was tested for Covid test prior to discharge to SNF on 10/08, came back positive Patient requiring baseline oxygen, afebrile, respiratory mason stable. No indication for steroid or remdesivir at this point, closely monitor, incentive spirometer No respiratory symptoms from Covid, patient can be off of isolation from Covid. E coli UTI Plan: Urine culture grew E. coli pansensitive. Status post treatment. Uncontrolled type II diabetes mellitus: Plan: A1c this admission 13.5. Currently on Lantus and insulin sliding scale during the hospital course, BG relatively controlledd. Home regimen includes Lantus 68 unit BID, 10 unit TIDM Novolog, Trulicity Your Lantus dose has been decreased to 50 units twice daily, rest of the medications are same upon discharge. Continue monitor blood sugar. [facility] clinic upon DC. press feeder evaluated. Hyperkalemia: -Resolved Combined congestive systolic and diastolic heart failure: Plan: Continue with home dose Lasix with potassium supplementation. ELOY on CKD stage III- ELOY resolved. baseline creatinine around 1.6-1.8 Admitting creatinine was 3.08. Resolved. Other chronic medical conditions: HTN, asthma, complete heart block, HLD, PVD, morbid obesity Continue with/resume home meds as and when appropriate. DVT Ppx: on heparin subcu Code status: FULL [facility] with following instruction at the point of discharge: Follow-up with your primary care physician within a week time. Follow-up with your orthopedics doctor as an outpatient in 2 to 3 weeks time. Hinged knee brace to be on at all times on your left lower extremity, may loosen for batting, no range of motion of the knee at this time. The pain will take multiple weeks before it is starts to decrease. The fracture will begin to heal over the next few weeks. Nonweightbearing for at least another 6 weeks upon discharge but recommend orthopedic follow-up prior to initiating weightbearing. You will be discharged with few days worth of pain medication, you will have to be in touch with your primary care physician or orthopedics doctor for ongoing pain medication prescription; as discussed at the bedside. Continue with physical therapy. Carb consistent and heart healthy diet with low sodium intake [2 g] and fluid restriction of 1.8 L/day are recommended. Establish and follow-up with [facility] clinic for closer monitoring of your diabetes, your A1c while in this hospital admission was 13.5, certain medication changes to your diabetes medications were done upon discharge. Get your blood work BMP done in a week time upon discharge. Your losartan has been discontinued this admission by nephrology. Continue with Lasix 40 mg twice daily with potassium supplementation 20 mEq daily. You will need to follow-up with nephrology as an outpatient in 1 to 2 weeks upon discharge. For your Covid infection tested positive on 10/08, you had been asymptomatic respiratory mason, you are already off of isolation for Covid. Take your medications as prescribed. Total Time Total Time Spent Total Time Spent (In Minutes): 45 Discharge Plan Discharge Items Patient Disposition: Home - Self-Care Reason For Visit: PERIPROSTHETIC KNEE FRACTURE Discharge Diagnosis: Periprosthetic fracture around internal prosthetic left knee joint Asymptomatic COVID-19 Uncontrolled type 2 diabetes mellitus Activity: Per Instructions section Non-emergency contact: Primary Care Provider Call non-emergency contact if: you have any medication questions, your symptoms worsen, your pain is not controlled and your temperature is above 101 Follow-up/Referrals: Alfonso Guzman MD [Surgeon] - (Follow up in 2 weeks for repeat xrays. ) Asael Jones MD [Primary Care Provider] - Diet: Carb Consistent or DM2, Heart Healthy and Low Sodium (2gm) Fluids: 1800ml (7 cups) Addtl Attending Provider Instructions: Follow-up with your primary care physician within a week time. Follow-up with your orthopedics doctor as an outpatient in 2 to 3 weeks time. Hinged knee brace to be on at all times on your left lower extremity, may loosen for batting, no range of motion of the knee at this time. The pain will take multiple weeks before it is starts to decrease. The fracture will begin to heal over the next few weeks. Nonweightbearing for at least another 6 weeks upon discharge but recommend orthopedic follow-up prior to initiating weightbearing. You will be discharged with few days worth of pain medication, you will have to be in touch with your primary care physician or orthopedics doctor for ongoing pain medication prescription; as discussed at the bedside. Continue with physical therapy. Carb consistent and heart healthy diet with low sodium intake [2 g] and fluid restriction of 1.8 L/day are recommended. Establish and follow-up with [facility] clinic for closer monitoring of your diabetes, your A1c while in this hospital admission was 13.5, certain medication changes to your diabetes medications were done upon discharge. Get your blood work BMP done in a week time upon discharge. Your losartan has been discontinued this admission by nephrology. Continue with Lasix 40 mg twice daily with potassium supplementation 20 mEq daily. You will need to follow-up with nephrology as an outpatient in 1 to 2 weeks upon discharge. For your Covid infection tested positive on 10/08, you had been asymptomatic respiratory mason, you are already off of isolation for Covid. Take your medications as prescribed. Addtl Salad Chef Provider Instructions: You must remain NONWEIGHTBEARING on the left lower extremity. YOU MUST WEAR YOUR BRACE AT ALL TIMES. YOU MAY REMOVE FOR BATHING AND CHANGING CLOTHES. Follow up with Dr. Guzman in 2 weeks for repeat xrays. [phone] Pending Studies at Discharge: No Stand-Alone Forms: My [facility] [id number], Smoking Cessation Medications and DC Order Prescriptions: New tramadol 50 mg Tablet 50 mg PO Q8H PRN (Reason: severe pain (scale score 7-10)) 5 Days Qty: 15 RF: 0 polyethylene glycol 3350 [Miralax] 17 gram Powder In Packet 17 g PO DAILY Qty: 30 RF: 0 potassium chloride 20 mEq Tablet,Er Particles/Crystals 20 meq PO DAILY Qty: 30 RF: 0 Continued carvedilol 12.5 mg tablet 12.5 mg PO BID RF: 0 cyanocobalamin (vitamin B-12) 100 mcg Tablet 100 mcg PO DAILY RF: 0 clopidogrel 75 mg tablet 75 mg PO DAILY RF: 0 aspirin 81 mg Tablet,Delayed Release (Dr/Ec) 81 mg PO DAILY RF: 0 montelukast 10 mg tablet 10 mg PO DAILY RF: 0 Multiple Vitamin-Minerals Tablet 1 tab PO DAILY RF: 0 loratadine 10 mg Tablet 10 mg PO DAILY PRN (Reason: Allergy Symptoms) RF: 0 albuterol sulfate 2.5 mg /3 mL (0.083 %) solution for nebulization 2.5 mg inhalation Q4H PRN (Reason: Shortness Of Breath Or Wheezing) RF: 0 budesonide 32 mcg/actuation [place],Non-Aerosol 2 spray INTRANASAL DAILY RF: 0 triamcinolone acetonide 0.025 % Cream 1 applic TOPICAL BID RF: 0 insulin aspart U-100 [Novolog Flexpen U-100 Insulin] 100 unit/mL (3 mL) insulin pen 10 unit SUBCUT TID RF: 0 rosuvastatin 40 mg Tablet 40 mg PO DAILY RF: 0 Spiriva with HandiHaler 18 mcg Capsule, W/Inhalation Device 1 cap INHALATION DAILY RF: 0 diclofenac sodium 1 % Gel 4 g TOPICAL QID RF: 0 Trulicity 3 mg/0.5 mL pen injector 3 mg SUBCUT WK RF: 0 furosemide 40 mg tablet 40 mg PO BID RF: 0 Changed acetaminophen 325 mg Tablet 650 mg PO TID PRN (Reason: Pain) Qty: 180 RF: 0 gabapentin 100 mg capsule 100 mg PO BID Qty: 60 RF: 0 Lantus Solostar U-100 Insulin 100 unit/mL (3 mL) insulin pen 50 unit SUBCUT BID Qty: 0 RF: 0 Discontinued losartan 100 mg tablet 100 mg PO DAILY RF: 0 Discharge Orders: Discharge Order (Routine); Ordered 10/21/21 Ordered By: Enrrique Amor Admission Data Admit Date/Time: 09/22/21 18:15 Attending Provider: Enrrique Amor Admit Provider: Azul Diego Primary Care Provider: Asael Jones Other Interventions: Discharge Summary Assessment (RN) Last Done: 10/08/21 11:45
== END 2021-10-21 13:03 | DRG 562 ==
LOC: ED 14:59 → SUATTDRO 18:15 → EDINP 18:15 → 2N 21:15 → 3N 10-06 02:08 → 2S 10-08 16:41 → 2E 10-12 13:31 → 2S 10-20 17:45

== ENCOUNTER 2022-03-02 10:37 | Inpatient (IN) ==
[2022-03-02] MEDS ORDERED: MoRPHine SULFATE 10 MG/ML CARP/VIAL IV STA (11:35)
[2022-03-02] MEDS ORDERED: ONDANSETRON INJ 2 MG/ML 2 ML VIAL IV STA (11:37)
[2022-03-02] MEDS ORDERED: LIDOCAINE/EPINEPH/TETRACAINE 1 EA SYR EXT STA (11:38)
--- NOTE | 2022-03-02 11:38 | Emergency Department Note ---
Impression & Plan Fall, Laceration, Acute leg pain, Weakness, Dizziness ED Provider Note NAME: MAGGY TELLEZ AGE: 76 SEX: F : 1945 ARRIVES VIA: Ambulance INFORMANT: Patient ED PROVIDER(S): Yeyo Reaves DO CHIEF COMPLAINT: fall leg pain HPI: Patient is a 76-year-old female who presents to the ER following a fall complaining of bilateral leg cramps as well as head pain. She notes she was getting up out of bed and slipped and hit her head. She fell onto her buttocks. She denies any loss of consciousness. Pain is a 10 out of 10 in bilateral quads with cramping. Admits to a headache and pain on the right side of her head. No dysuria urgency or frequency. No other exacerbating or remitting factors. ROS: See above HPI for pertinent positives & negatives. A total of 10 systems reviewed and were otherwise negative. PAST MEDICAL HISTORY:See Below PAST SURGICAL HISTORY:See Below FAMILY HISTORY:See Below SOCIAL HISTORY:See Below HOME MEDICATIONS:See Below ALLERGIES:See Below VITALS:See Below PHYSICAL EXAMINATION: GENERAL: alert, well appearing, well nourished, no distress, non-toxic HEAD: normal cephalic, laceration right posterior occiput 3 cm no active bleed ing. EYE EXAM: normal conjunctiva, PERRL and EOM's grossly intact OROPHARYNX: mucous membranes are moist NECK: supple, no nuchal rigidity, no adenopathy, non-tender CHEST: stable to compression anteriorly and posteriorly LUNGS: clear to auscultation. Normal chest wall mechanics HEART: no murmurs, S1 normal and S2 normal ABDOMEN: abdomen soft, non-tender, normo-active bowel sounds, no masses, no rebound or guarding. PELVIS: stable to compression anteriorly and posteriorly BACK: Back is symmetrical on inspection and there is no deformity, no midline tenderness, no CVA tenderness. UPPER EXTREMITIES: full active and passive range of motion of all joints without tenderness to palpation LOWER EXTREMITIES: Flexion-extension bilateral hips knees ankles and EHL intact. Significant pain on palpation of bilateral quads. Ulcers on the right foot with erythema tracking up the right robbins. Ulcer on the first toe as well as the medial aspect of the first MTP. Second toe distal aspect with ulcer which appears necrotic at the distal tip. Fourth toe with necrosis n NEURO EXAM: Normal sensorium, cranial nerves II-XII grossly intact, normal speech, no gross weakness of arms, no gross weakness of legs. GCS: 15. MEDICAL DECISION MAKING: Patient 76-year-old female who presents ER following mechanical fall. She is complaining of bilateral thigh pain as well as head pain and later complains of dizziness just prior to discharge. IV was established blood work is obtained. Labs show mild anemia of 10.4 consistent with previous. No leukocytosis. BMP with creatinine at 2 slightly up from baseline of 1.5. LFTs bilirubin was unremarkable. Lipase was normal. COVID was negative. CT head and neck was negative. Venous Doppler of the right lower extremity showed no tees. X-rays of the pelvis and chest were unremarkable. Patient was updated bedside. Unable to ambulate and feeling very weak and discussed with hospitalist for further evaluation. Triage Nursing notes reviewed. Limited review of prior medical records performed Vital Signs: reviewed and remarkable for no significant abnormalities Differential diagnosis: Differential diagnoses include major intracranial, cervical, spinal, thoracic, abdominal, pelvic and neurologic injury. Fracture, contusion, sprain, strain, laceration, abrasions included as well. ER treatment provided: See below Diagnostics interpreted by me: ECG: none Cardiac Monitoring: An order was placed for continuous cardiac monitoring. The monitor shows a rate of 80 with Paced rhythm. Laboratory studies: As stated above and show below. Imaging studies: CTs as discussed above Consultation(s): D/w [facility] [place] hospitalist for further evaluation Procedures: Location: Right posterior scalp Total length: 4.5 Complexity: Simple Verbal consent was obtained after the risks and benefits were explained, including but not limited to bleeding, scarring, infection, pain, and bone/joint/nerve damage. At this time, the risks of the procedure are less than the risks of NOT performing the procedure. A time out was taken and the correct patient and site identified. The skin was prepped with betadine. The target area was anesthetized with ml of 1% lidocaine without epinephrine. Copious irrigation was performed using NSS. The skin was re-prepped with betadine and a sterile field set. The wound was explored for foreign bodies and none found. Examination revealed no injury to deep structures such as tendons, bone, or significant blood vessels. Debridement was not performed. The wound edges were approximated using 4, tushar. Hemostasis and excellent approximation was achieved. Antibacterial ointment and a sterile dressing applied. Detailed wound care instructions and signs and symptoms of infection reviewed with the PT. No complications and the patient tolerated the procedure well. Critical Care: None Past Med/Surg History Medical History Asthma CKD (chronic kidney disease), stage III Combined congestive systolic and diastolic heart failure Complete heart block (06/14/14) Diabetes mellitus, type II, insulin dependent Dyslipidemia Excessive daytime sleepiness Granulomatous interstitial lung disease HTN (hypertension) Morbid obesity due to excess calories Nonischemic cardiomyopathy Pacemaker Physical deconditioning PVD (peripheral vascular disease) Sleep apnea Surgical History H/O tubal ligation History of cardiac cath 2014 - normal coronary arteries; Dr Jorgensen at [facility] [place] History of carpal tunnel release History of cataract removal with insertion of prosthetic lens History of revascularization procedure of lower extremity fem/pop artery revascularization RLE; 09/2017; Dr Gill at [facility] [place] History of total knee arthroplasty 2005; bilateral Family History Mother Leukemia Son Asthma Brother Stroke Social History Smoking Status: Never smoker Second Hand Exposure: No; Hx Alcohol Use: No Hx Substance Use: No Preferred Language: Yi Communication Ability: Effective Quality Control Associate Required: No Beliefs That Will Affect Care: None marital status: Current Living Situation: Spouse Feels Safe at Home: Yes Assistive Devices: Walker Allergies Allergies Allergy/AdvReac Type Severity Reaction Status Date / Time fluticasone Allergy Severe WATER ON Verified 03/02/22 17:13 LUNGS salmeterol Allergy Severe WATER ON Verified 03/02/22 17:13 LUNGS propoxyphene Allergy Mild FROM Verified 03/02/22 17:13 DARVOCET benzocaine Allergy Unknown Unknown Verified 03/02/22 17:13 mold Allergy Unknown Unknown Verified 03/02/22 17:13 acetaminophen [From Vicodin] AdvReac Intermediate hallucinati Verified 03/02/22 17:13 ons hydrocodone [From Vicodin] AdvReac Intermediate hallucinati Verified 03/02/22 17:13 ons oxycodone AdvReac Intermediate Hallucinati Verified 03/02/22 17:13 ng prednisone AdvReac Intermediate HYPERGLYCEM Verified 03/02/22 17:13 IA Home Meds Home Medications Medication Instructions Recorded Confirmed aspirin 81 mg tablet,delayed 81 mg PO DAILY 10/01/19 03/02/22 release carvedilol 12.5 mg tablet 12.5 mg PO BID 10/01/19 03/02/22 clopidogrel 75 mg tablet 75 mg PO DAILY 10/01/19 03/02/22 cyanocobalamin (vitamin B-12) 100 100 mcg PO DAILY 10/01/19 03/02/22 mcg tablet loratadine 10 mg tablet 10 mg PO DAILY 10/01/19 03/02/22 montelukast 10 mg tablet 10 mg PO DAILY 10/01/19 03/02/22 multivitamin with minerals 1 tab PO DAILY 10/01/19 03/02/22 (Multiple Vitamin-Minerals) budesonide 32 mcg/actuation nasal 2 spray INTRANASAL DAILY 09/22/21 03/02/22 spray diclofenac sodium 1 % topical gel 4 g TOPICAL QID 09/22/21 03/02/22 dulaglutide 3 mg/0.5 mL 3 mg SUBCUT WK 09/22/21 03/02/22 subcutaneous pen injector (Trulicity) furosemide 40 mg tablet 40 mg PO QAM 09/22/21 03/02/22 insulin aspart U-100 100 unit/mL 10 unit SUBCUT TID 09/22/21 03/02/22 (3 mL) subcutaneous pen (Novolog Flexpen U-100 Insulin aspart) rosuvastatin 40 mg tablet 40 mg PO DAILY 09/22/21 03/02/22 losartan 100 mg tablet 100 mg PO DAILY 02/20/22 03/02/22 magnesium 100 mg tablet 100 mg PO DAILY 02/20/22 03/02/22 potassium gluconate 550 mg (90 mg) 550 mg PO DAILY 02/20/22 03/02/22 tablet morphine 15 mg tablet,extended 15 mg PO AMHS 03/02/22 03/02/22 release tramadol 50 mg tablet 50 mg PO Q8 PRN 03/02/22 03/02/22 Previous Rx's Medication Instructions Recorded acetaminophen 325 mg tablet 650 mg PO TID PRN #180 tab 10/21/21 gabapentin 100 mg capsule 100 mg PO BID #60 cap 10/21/21 insulin glargine 100 unit/mL (3 50 unit SUBCUT BID #0 ml 10/21/21 mL) subcutaneous pen (Lantus Solostar U-100 Insulin) albuterol sulfate 2.5 mg INHALATION Q6H PRN #75 ml 02/20/22 amoxicillin 875 mg-potassium 1 tab PO BID #20 tab 02/20/22 clavulanate 125 mg tablet Results & Data (ED) Vital Signs Vital Signs - 24 hr 03/02/22 10:49 03/02/22 13:08 03/02/22 13:15 Temperature 36.4 C L Temperature Source Oral Pulse Rate 88 Pulse Rate [Right Apical] 84 Pulse Rhythm Regular Pulse Rhythm [Right Apical] Regular Pulse Strength Normal Respiratory Rate 20 20 Respiratory Effort / Characteristics Non-Labored Spontaneous Respiratory Depth Normal Normal Respiratory Pattern Regular Blood Pressure 116/61 Blood Pressure [Right Arm] 117/59 L Blood Pressure Mean 79 Blood Pressure Mean [Right Arm] 78 Blood Pressure Position Lying Blood Pressure Position [Right Arm] Lying Pulse Oximetry 97 100 100 Oxygen Delivery Method Room Air Nasal Cannula Room Air Oxygen Flow Rate 2 Sepsis Recent Fever Within 48 Hours No Sepsis New/Unexplained Change in Mental Status N/A Sepsis Action Taken by Nursing No Action Required 03/02/22 15:00 Temperature Temperature Source Pulse Rate Pulse Rate [Right Apical] 78 Pulse Rhythm Pulse Rhythm [Right Apical] Pulse Strength Respiratory Rate 22 Respiratory Effort / Characteristics Non-Labored Respiratory Depth Respiratory Pattern Blood Pressure Blood Pressure [Right Arm] 100/57 L Blood Pressure Mean Blood Pressure Mean [Right Arm] 71 Blood Pressure Position Blood Pressure Position [Right Arm] Pulse Oximetry 100 Oxygen Delivery Method Nasal Cannula Oxygen Flow Rate 2 Sepsis Recent Fever Within 48 Hours Sepsis New/Unexplained Change in Mental Status Sepsis Action Taken by Nursing Laboratory Data Result diagrams: 03/02/22 13:03 03/02/22 13:03 Lab Results 03/02/22 03/02/22 03/02/22 Range/Units 13:03 13:03 16:09 WBC 9.79 (4.8-10.8) K/uL RBC 3.51 L (4.2-5.4) M/uL Hgb 10.4 L (12.0-16.0) g/dL Hct 33.6 L (37-47) % MCV 95.7 (80-100) fL MCH 29.6 (25-34) pg MCHC 31.0 L (32-36) g/dL RDW Std Deviation 69.2 H (36.4-46.3) fL RDW Coeff of Javier 19.6 H (11.5-14.5) % Plt Count 269 (130-400) K/uL MPV 8.9 (7.4-10.4) fL Immature Gran % (Auto) 0.2 % Neut % (Auto) 79.7 % Lymph % (Auto) 8.9 % [place] % (Auto) 7.4 % Eos % (Auto) 3.2 % Baso % (Auto) 0.6 % Neut # (Auto) 7.81 H (1.4-6.5) K/uL Lymph # (Auto) 0.87 L (1.2-3.4) K/uL [place] # (Auto) 0.72 H (0.11-0.59) K/uL Eos # (Auto) 0.31 (0-0.5) K/uL Baso # (Auto) 0.06 (0-0.2) K/uL Immature Gran # (Auto) 0.02 (0.00-0.02) K/uL Sodium 135 L (136-145) mmol/L Potassium 4.6 (3.5-5.1) mmol/L Chloride 98 (98-107) mmol/L Carbon Dioxide 29 (21-32) mmol/L Anion Gap 8 (3-11) BUN 28 H (6-23) mg/dl Creatinine 2.09 H (0.6-1.2) mg/dl Est Cr Clr Drug Dosing 28.8 ml/min Est GFR ( Amer) 26.0 ml/min Est GFR (Non-Af Amer) 22.4 ml/min BUN/Creatinine Ratio 13.4 (10-20) Glucose 199 H (70-99(Fasting)) mg/dl POC Glucose 162 H (70-99) mg/dl Calcium 8.7 (8.5-10.1) mg/dl Total Bilirubin 0.3 (0.2-1.0) mg/dl AST 21 (13-39) U/L ALT 10 (7-52) U/L Alkaline Phosphatase 84 (34-104) U/L Troponin I High Sens 8.5 (0-14) pg/ml Total Protein 6.6 (6.0-8.3) gm/dl Albumin 2.7 L (3.4-5.0) gm/dl Globulin 3.9 (2.5-4.0) gm/dl Albumin/Globulin Ratio 0.7 L (0.9-2) Lipase 16 (11-82) U/L SARS-CoV-2, RNA, NAAT (NEGATIVE) 03/02/22 Range/Units 16:43 WBC (4.8-10.8) K/uL RBC (4.2-5.4) M/uL Hgb (12.0-16.0) g/dL Hct (37-47) % MCV (80-100) fL MCH (25-34) pg MCHC (32-36) g/dL RDW Std Deviation (36.4-46.3) fL RDW Coeff of Javier (11.5-14.5) % Plt Count (130-400) K/uL MPV (7.4-10.4) fL Immature Gran % (Auto) % Neut % (Auto) % Lymph % (Auto) % [place] % (Auto) % Eos % (Auto) % Baso % (Auto) % Neut # (Auto) (1.4-6.5) K/uL Lymph # (Auto) (1.2-3.4) K/uL [place] # (Auto) (0.11-0.59) K/uL Eos # (Auto) (0-0.5) K/uL Baso # (Auto) (0-0.2) K/uL Immature Gran # (Auto) (0.00-0.02) K/uL Sodium (136-145) mmol/L Potassium (3.5-5.1) mmol/L Chloride (98-107) mmol/L Carbon Dioxide (21-32) mmol/L Anion Gap (3-11) BUN (6-23) mg/dl Creatinine (0.6-1.2) mg/dl Est Cr Clr Drug Dosing ml/min Est GFR ( Amer) ml/min Est GFR (Non-Af Amer) ml/min BUN/Creatinine Ratio (10-20) Glucose (70-99(Fasting)) mg/dl POC Glucose (70-99) mg/dl Calcium (8.5-10.1) mg/dl Total Bilirubin (0.2-1.0) mg/dl AST (13-39) U/L ALT (7-52) U/L Alkaline Phosphatase (34-104) U/L Troponin I High Sens (0-14) pg/ml Total Protein (6.0-8.3) gm/dl Albumin (3.4-5.0) gm/dl Globulin (2.5-4.0) gm/dl Albumin/Globulin Ratio (0.9-2) Lipase (11-82) U/L SARS-CoV-2, RNA, NAAT NEGATIVE (NEGATIVE) Administered Medications Discontinued Medications Diphtheria/Pertussis/Tetanus Vacc (Diphtheria/Tetanus/Pertussis 0.5 Ml Syr/Vial) 0.5 ml IM .ONCE ONE Stop: 03/02/22 12:00 Last Admin: 03/02/22 17:27 Dose: 0.5 ml Documented by: [id number] Diphtheria/Pertussis/Tetanus Vacc (Diphtheria/Tetanus/Pertussis 0.5 Ml Syr/Vial) Confirm Administered Dose 0.5 ml IM .ST-MED ONE Stop: 03/02/22 17:06 Last Admin: 03/02/22 17:46 Dose: Not Given Documented by: [id number] Lidocaine (Lidocaine/Epineph/Tetracaine 1 Ea Syr) 1 ea EXT NOW STA Stop: 03/02/22 11:39 Last Admin: 03/02/22 13:35 Dose: 1 ea Documented by: [id number] Morphine Sulfate (Morphine Sulfate 10 Mg/Ml Carp/Vial) 6 mg IV NOW STA Stop: 03/02/22 11:36 Last Admin: 03/02/22 13:07 Dose: 6 mg Documented by: [id number] Ondansetron HCl (Ondansetron Inj 2 Mg/Ml 2 Ml Vial) 4 mg IV NOW STA Stop: 03/02/22 11:38 Last Admin: 03/02/22 13:07 Dose: 4 mg Documented by: [id number] Imaging Data Radiologist's Impression: Cervical Spine CT 03/02/22 11:35 CT SCAN OF THE CERVICAL SPINE CLINICAL HISTORY: Fall. COMPARISON STUDY: Cervical spine radiographs dated 05/14/2013 TECHNIQUE: CT scan of the cervical spine is performed from the skull base to the upper thoracic spine. Images are reviewed in the axial, sagittal, and coronal planes. IV contrast was not administered for this examination. A dose lowering technique was utilized adhering to the principles of ALARA. CT DOSE: 1281.66 mGy.cm FINDINGS: Skeletal structures: The skeletal structures are osteopenic. There is no evidence of fracture or subluxation involving the cervical spine. Vertebral body height is maintained. There is minimal anterolisthesis at C5-C6. Alignment is otherwise preserved. There is straightening of the cervical lordosis. Anterior osteophytes are seen throughout. The odontoid process and lateral masses are intact. The atlantoaxial articulation is preserved noting productive degenerative change. The spinous processes appear intact. There is mild to moderate multilevel cervical spondylosis. Uncovertebral and facet arthropathy contribute to neural foraminal narrowing at several levels. Intervertebral discs: There is mild multilevel degenerative disc space na rrowing. Central canal: Large posterior disc osteophyte complexes are seen at all cervical levels between C3-C4 and C6-C7. This likely contributes to multilevel acquired compromise of the central canal. Soft tissues: The prevertebral and paraspinous soft tissues are within normal limits. There is atherosclerotic calcification of the carotid bulbs. Pacemaker leads are noted at the left thoracic inlet. Calvarium: The visualized calvarium at the skull base appears intact. Brain parenchyma: Partially visualized brain parenchyma at the skull base is within normal limits. Sinuses and mastoids: Trace mucosal thickening is noted in the maxillary antra. The mastoid air cells are well pneumatized. Lung apices: Clear as visualized. IMPRESSION: 1. There is no evidence of fracture or subluxation involving the cervical spine. 2. Osteopenia and spondylotic change as above. ACT 112: Negative or not required by law. Electronically signed by: Celestino Guerrero M.D. 03/02/2022 1:56 PM Chest X-Ray 03/02/22 11:35 XR chest 1V portable CLINICAL HISTORY: Chest Pain. COMPARISON STUDY: 02/20/2022 TECHNIQUE: 1 view of the chest FINDINGS: Single frontal view of the chest demonstrates the heart to again be enlarged status post previous pacer placement. Compared to previous examination, there has been interval development of central vascular congestion. No definite peripheral interstitial edema is seen. There is no evidence for pleural effusion. No confluent alveolar opacities are identified. There is no acute osseous pathology. IMPRESSION: 1. Interval development of central vascular congestion characteristic of cardiac decompensation. ACT 112: Negative or not required by law. Electronically signed by: Cesar Mcdowell M.D. 03/02/2022 1:[address] 03/02/22 11:35 CT head/brain wo con CLINICAL HISTORY: fall . Posterior head injury/laceration COMPARISON STUDY: 09/27/2021 CT DOSE: TECHNIQUE: Standard CT of the Brain was performed without IV contrast. A dose lowering technique was utilized adhering to the principles of ALARA. FINDINGS: Extraaxial space: There is no evidence for subdural hematoma. There are no extra-axial fluid collections. Ventricles and cisterns: The ventricles are mildly dilated bilaterally. There is no evidence for midline shift or mass effect. Parenchyma: There is no subarachnoid or intraparenchymal hemorrhage. There is no evidence for an acute infarct or cerebral edema. There is mild cerebral cortical atrophy and decreased attenuation in the periventricular white matter representing remote small vessel disease. There are no gross mass lesions. Osseous structures: There is no evidence for an acute fracture. There is mild asymmetric mucosal thickening involving the left maxillary antrum. The remaining visualized paranasal sinuses are clear. The mastoid air cells are clear bilaterally. Soft tissues: There is no evidence for focal soft tissue swelling. IMPRESSION: 1. No acute intracerebral pathology. 2. Mild cerebral cortical atrophy and remote small vessel disease. 3. Mild chronic left maxillary sinusitis. ACT 112: Negative or not required by law. Electronically signed by: Cesar Mcdowell M.D. 03/02/2022 2:27 PM Pelvis X-Ray 03/02/22 11:35 XR pelvis 1-2V routine CLINICAL HISTORY: fall TECHNIQUE: Prior hip and pelvis radiograph 09/22/2021 Comparison: None available at the time of this dictation. FINDINGS: There is no evidence of an acute fracture. Degenerative changes are seen in the hip joints and lumbar spine. No soft tissue abnormality is seen. IMPRESSION: No evidence of acute osseous injury. ACT 112: Negative or not required by law. Electronically signed by: Mahesh Evans M.D. 03/02/2022 1:49 PM Venous Doppler Study 03/02/22 11:35 US venous doppler LE RT HISTORY: 76 years-old Female rle swelling acute pain and swelling of the right lower leg COMPARISON: 05/07/2013 TECHNIQUE: Multiple real-time sonographic images of the right lower extremity deep venous structures were obtained assessing grayscale appearance, color and spectral flow. FINDINGS: Normal flow, compressibility, phasicity and augmentation. IMPRESSION: No sonographic evidence of deep venous thrombosis. ACT 112: Negative or not required by law. The above report was generated using voice recognition software. It may contain grammatical, syntax or spelling errors. Electronically signed by: Aditya Gallegos M.D. 03/02/2022 3:18 PM Discharge Plan Visit Data Chief Complaint: Fall ED Provider: Yeyo Reaves Discharge Problem: Fall, Laceration, Acute leg pain, Weakness, Dizziness Forms Stand Alone Forms: [facility] Prescriptions Prescriptions: No Action carvedilol 12.5 mg tablet 12.5 mg PO BID RF: 0 cyanocobalamin (vitamin B-12) 100 mcg Tablet 100 mcg PO DAILY RF: 0 clopidogrel 75 mg tablet 75 mg PO DAILY RF: 0 aspirin 81 mg Tablet,Delayed Release (Dr/Ec) 81 mg PO DAILY RF: 0 montelukast 10 mg tablet 10 mg PO DAILY RF: 0 Multiple Vitamin-Minerals Tablet 1 tab PO DAILY RF: 0 loratadine 10 mg Tablet 10 mg PO DAILY RF: 0 budesonide 32 mcg/actuation [place],Non-Aerosol 2 spray INTRANASAL DAILY RF: 0 insulin aspart U-100 [Novolog Flexpen U-100 Insulin] 100 unit/mL (3 mL) insulin pen 10 unit SUBCUT TID RF: 0 rosuvastatin 40 mg Tablet 40 mg PO DAILY RF: 0 diclofenac sodium 1 % Gel 4 g TOPICAL QID RF: 0 Trulicity 3 mg/0.5 mL pen injector 3 mg SUBCUT WK RF: 0 furosemide 40 mg tablet 40 mg PO QAM RF: 0 acetaminophen 325 mg Tablet 650 mg PO TID PRN (Reason: Pain) Qty: 180 RF: 0 gabapentin 100 mg capsule 100 mg PO BID Qty: 60 RF: 0 insulin glargine [Lantus Solostar U-100 Insulin] 100 unit/mL (3 mL) insulin pen 50 unit SUBCUT BID Qty: 0 RF: 0 tramadol 50 mg tablet 50 mg PO Q8 PRN (Reason: Pain) RF: 0 morphine 15 mg tablet extended release 15 mg PO AMHS RF: 0 magnesium 100 mg Tablet 100 mg PO DAILY RF: 0 losartan 100 mg Tablet 100 mg PO DAILY RF: 0 potassium gluconate 550 mg (90 mg) Tablet 550 mg PO DAILY RF: 0 amoxicillin-pot clavulanate 875-125 mg tablet 1 tab PO BID Qty: 20 RF: 0 albuterol sulfate 2.5 mg /3 mL (0.083 %) solution for nebulization 2.5 mg inhalation Q6H PRN (Reason: shortness of breath or wheezing) Qty: 75 RF: 2 Referrals Referrals: Rk Jones MD [Primary Care Provider] - Discharge Problem: Fall Qualifiers: Encounter type: initial encounter Qualified Code(s): W19.XXXA - Unspecified fall, initial encounter Acute leg pain Qualifiers: Laterality: unspecified laterality Qualified Code(s): M79.606 - Pain in leg, unspecified
[2022-03-02] MEDS ORDERED: DIPHTHERIA/TETANUS/PERTUSSIS 0.5 ML SYR/VIAL IM ONE ×2 (11:59→17:05)
[2022-03-02 13:26] LABS: Basophils # (auto) 0.06 K/uL (0-0.2); Basophils % (auto) 0.6 %; Eosinophils # (auto) 0.31 K/uL (0-0.5); Eosinophils % (auto) 3.2 %; Hematocrit (blood only) 33.6 % (37-47); Hemoglobin 10.4 g/dL (12.0-16.0); Immature Granulocytes # (auto) 0.02 K/uL (0.00-0.02); Immature Granulocytes % (auto) 0.2 %; Lymphocytes # (auto) 0.87 K/uL (1.2-3.4); Lymphocytes % (auto) 8.9 %; Mean Corpuscular Hemoglobin 29.6 pg (25-34); Mean Corpuscular Volume 95.7 fL (80-100); Mean Platelet Volume 8.9 fL (7.4-10.4); Monocytes # (auto) 0.72 K/uL (0.11-0.59); Monocytes % (auto) 7.4 %; Neutrophils # (auto) 7.81 K/uL (1.4-6.5); Neutrophils % (auto) 79.7 %; Platelet Count 269 K/uL (130-400); RDW Coefficient of Variation 19.6 % (11.5-14.5); RDW Standard Deviation 69.2 fL (36.4-46.3); Red Blood Count 3.51 M/uL (4.2-5.4); White Blood Count 9.79 K/uL (4.8-10.8)
--- NOTE | 2022-03-02 13:45 | XRay Report ---
XR chest 1V portable CLINICAL HISTORY: Chest Pain. COMPARISON STUDY: 02/20/2022 TECHNIQUE: 1 view of the chest FINDINGS: Single frontal view of the chest demonstrates the heart to again be enlarged status post previous pac er placement. Compared to previous examination, there has been interval development of central vascul ar congestion. No definite peripheral interstitial edema is seen. There is no evidence for pleural ef fusion. No confluent alveolar opacities are identified. There is no acute osseous pathology. IMPRESSION: 1. Interval development of central vascular congestion characteristic of cardiac decompensation. ACT 112: Negative or not required by law. Electronically signed by: Cesar Mcdowell M.D. 03/02/2022 1:44 PM
[2022-03-02 13:46] LABS: Albumin Globulin Ratio 0.7 (0.9-2); Albumin Level 2.7 gm/dl (3.4-5.0); BUN Creatinine Ratio 13.4 (10-20); Bilirubin,Total 0.3 mg/dl (0.2-1.0); Calcium 8.7 mg/dl (8.5-10.1); Creatinine Clr Calc Pharmacy 28.8 ml/min; Est GFR (Non-African American) 22.4 ml/min; Globulin 3.9 gm/dl (2.5-4.0); Potassium 4.6 mmol/L (3.5-5.1); Total Protein 6.6 gm/dl (6.0-8.3)
[2022-03-02 13:49] LABS: Troponin I High Sensitivity 8.5 pg/ml (0-14)
--- NOTE | 2022-03-02 13:51 | XRay Report ---
XR pelvis 1-2V routine CLINICAL HISTORY: fall TECHNIQUE: Prior hip and pelvis radiograph 09/22/2021 Comparison: None available at the time of this dictation. FINDINGS: There is no evidence of an acute fracture. Degenerative changes are seen in the hip joints and lumbar spine. No soft tissue abnormality is seen. IMPRESSION: No evidence of acute osseous injury. ACT 112: Negative or not required by law. Electronically signed by: Mahesh Evans M.D. 03/02/2022 1:49 PM
--- NOTE | 2022-03-02 13:58 | CT Scan Report ---
CT SCAN OF THE CERVICAL SPINE CLINICAL HISTORY: Fall. COMPARISON STUDY: Cervical spine radiographs dated 05/14/2013 TECHNIQUE: CT scan of the cervical spine is performed from the skull base to the upper thoracic spine . Images are reviewed in the axial, sagittal, and coronal planes. IV contrast was not administered fo r this examination. A dose lowering technique was utilized adhering to the principles of ALARA. CT DOSE: 1281.66 mGy.cm FINDINGS: Skeletal structures: The skeletal structures are osteopenic. There is no evidence of fracture or subl uxation involving the cervical spine. Vertebral body height is maintained. There is minimal anterolis thesis at C5-C6. Alignment is otherwise preserved. There is straightening of the cervical lordosis. A nterior osteophytes are seen throughout. The odontoid process and lateral masses are intact. The atla ntoaxial articulation is preserved noting productive degenerative change. The spinous processes appea r intact. There is mild to moderate multilevel cervical spondylosis. Uncovertebral and facet arthropa thy contribute to neural foraminal narrowing at several levels. Intervertebral discs: There is mild multilevel degenerative disc space narrowing. Central canal: Large posterior disc osteophyte complexes are seen at all cervical levels between C3-C 4 and C6-C7. This likely contributes to multilevel acquired compromise of the central canal. Soft tissues: The prevertebral and paraspinous soft tissues are within normal limits. There is athero sclerotic calcification of the carotid bulbs. Pacemaker leads are noted at the left thoracic inlet. Calvarium: The visualized calvarium at the skull base appears intact. Brain parenchyma: Partially visualized brain parenchyma at the skull base is within normal limits. Sinuses and mastoids: Trace mucosal thickening is noted in the maxillary antra. The mastoid air cells are well pneumatized. Lung apices: Clear as visualized. IMPRESSION: 1. There is no evidence of fracture or subluxation involving the cervical spine. 2. Osteopenia and spondylotic change as above. ACT 112: Negative or not required by law. Electronically signed by: Celestino Guerrero M.D. 03/02/2022 1:56 PM
--- NOTE | 2022-03-02 14:28 | CT Scan Report ---
CT head/brain wo con CLINICAL HISTORY: fall . Posterior head injury/laceration COMPARISON STUDY: 09/27/2021 CT DOSE: TECHNIQUE: Standard CT of the Brain was performed without IV contrast. A dose lowering technique was utilized adhering to the principles of ALARA. FINDINGS: Extraaxial space: There is no evidence for subdural hematoma. There are no extra-axial fluid collecti ons. Ventricles and cisterns: The ventricles are mildly dilated bilaterally. There is no evidence for midl ine shift or mass effect. Parenchyma: There is no subarachnoid or intraparenchymal hemorrhage. There is no evidence for an acut e infarct or cerebral edema. There is mild cerebral cortical atrophy and decreased attenuation in the periventricular white matter representing remote small vessel disease. There are no gross mass lesio ns. Osseous structures: There is no evidence for an acute fracture. There is mild asymmetric mucosal thic kening involving the left maxillary antrum. The remaining visualized paranasal sinuses are clear. The mastoid air cells are clear bilaterally. Soft tissues: There is no evidence for focal soft tissue swelling. IMPRESSION: 1. No acute intracerebral pathology. 2. Mild cerebral cortical atrophy and remote small vessel disease. 3. Mild chronic left maxillary sinusitis. ACT 112: Negative or not required by law. Electronically signed by: Cesar Mcdowell M.D. 03/02/2022 2:27 PM
--- NOTE | 2022-03-02 15:20 | Ultrasound Report ---
US venous doppler LE RT HISTORY: 76 years-old Female rle swelling acute pain and swelling of the right lower leg COMPARISON: 05/07/2013 TECHNIQUE: Multiple real-time sonographic images of the right lower extremity deep venous structures were obtained assessing grayscale appearance, color and spectral flow. FINDINGS: Normal flow, compressibility, phasicity and augmentation. IMPRESSION: No sonographic evidence of deep venous thrombosis. ACT 112: Negative or not required by law. The above report was generated using voice recognition software. It may contain grammatical, syntax o r spelling errors. Electronically signed by: Aditya Gallegos M.D. 03/02/2022 3:18 PM
--- NOTE | 2022-03-02 16:49 | History & Physical Report ---
Date of Service March 02, 2022 Assessment & Plan (1) Fall: (2) Weakness: (3) Scalp laceration: (4) Cellulitis of right leg: (5) Diabetes mellitus, type II: (6) Combined congestive systolic and diastolic heart failure: (7) CKD (chronic kidney disease), stage III: (8) Complete heart block: (9) Pacemaker: (10) Sleep apnea: Plan: This is a 76yo F with a PMH of uncontrolled DM II, asthma, severe sleep apnea on 3L NC HS, combined systolic and diastolic heart failure, h/o complete heart block s/p pacemaker placement, LBBB, PVD, CKD III, dyslipidemia, morbid obesity and other medical problems as below who presents from home after fall. Fall Generalized weakness Scalp laceration Recently discharged from 5 months in [facility], minimal ambulatory ability at baseline CT head, CT cervical spine and pelvis XR without evidence of acute injury Scalp laceration repaired in ED. No headache Fall precautions, PT/OT evaluation RLE cellulitis Improving. Completed course of Augmentin prescribed in ER, continue 10d course of Clinda prescribed on 02/[address] Jones, continue probiotics Venous doppler without evidence of DVT. Arterial Doppler ordered to evaluate for component of PAD Pain control DM II December 2021 a1c much improved at 7.9 (from 13) Basal/bolus regimen while in-patient BSG AC HS Combined systolic and diastolic heart failure Slight increase in edema in BLE. Transition to IV Lasix 40mg IV for now No CP, SOB or weight gain Repeat CXR in AM. Daily weights, strict intake and output, low sodium diet Acute on chronic CKD Cr 2.09 today (baseline ~ 1.7-1/8). Hold losartan for now. Avoid nephrotoxic agents as able. Repeat BMP daily Complete heart block s/p pacemaker placement ISAIAS 3L NC O2 HS DVT Ppx: SQ heparin Code status: FULL PCP: Robert Dispo: Admitted to med/tele Patient seen in collaboration with Dr. Cox. Please see addendum. History of Present Illness Chief Complaint: fall Primary Care Provider: Rk Jones MD This is a 76yo F with a PMH of uncontrolled DM II, asthma, severe sleep apnea on 3L NC HS, combined systolic and diastolic heart failure, h/o complete heart block s/p pacemaker placement, LBBB, PVD, CKD III, dyslipidemia, morbid obesity and other medical problems as below who presents from home after fall. Fell out of bed this morning when reaching for phone and hit her head. Denies LOC. Feeling generally weak. Has been at [facility] for rehab for 5 months following admission at the beginning of the year following periprosthetic knee fracture. Was discharged home from SNF 10 days ago. Since then, presented to ER for RLE wounds and was prescribed Augmentin in ER that she has completed. Wound continued to look worse and patient was prescribed Clindamycin for 10 days, [facility] patient began on February 26. States wound appearance has improved. Per Dr. Jones's recent note, patient's overall health has been declining in large part due to uncontrolled diabetes. Can ambulate a few steps and has a wheelchair at home as well. Denies fever, chills, chest pain, SOB, nausea, vomiting, abdominal pain, dysuria, diarrhea or constipation. Pain currently 2/10 in RLE following morphine dose. Has not taken medications today. Allergies Allergy/AdvReac Type Severity Reaction Status Date / Time fluticasone Allergy Severe WATER ON Verified 03/02/22 17:13 LUNGS salmeterol Allergy Severe WATER ON Verified 03/02/22 17:13 LUNGS propoxyphene Allergy Mild FROM Verified 03/02/22 17:13 DARVOCET benzocaine Allergy Unknown Unknown Verified 03/02/22 17:13 mold Allergy Unknown Unknown Verified 03/02/22 17:13 acetaminophen [From Vicodin] AdvReac Intermediate hallucinati Verified 03/02/22 17:13 ons hydrocodone [From Vicodin] AdvReac Intermediate hallucinati Verified 03/02/22 17:13 ons oxycodone AdvReac Intermediate Hallucinati Verified 03/02/22 17:13 ng prednisone AdvReac Intermediate HYPERGLYCEM Verified 03/02/22 17:13 IA Home Medications Medication Instructions Recorded Confirmed Type aspirin 81 mg tablet,delayed 81 mg PO DAILY 10/01/19 03/02/22 History release carvedilol 12.5 mg tablet 12.5 mg PO BID 10/01/19 03/02/22 History clopidogrel 75 mg tablet 75 mg PO DAILY 10/01/19 03/02/22 History cyanocobalamin (vitamin B-12) 100 100 mcg PO DAILY 10/01/19 03/02/22 History mcg tablet loratadine 10 mg tablet 10 mg PO DAILY 10/01/19 03/02/22 History montelukast 10 mg tablet 10 mg PO DAILY 10/01/19 03/02/22 History multivitamin with minerals 1 tab PO DAILY 10/01/19 03/02/22 History (Multiple Vitamin-Minerals) budesonide 32 mcg/actuation nasal 2 spray INTRANASAL DAILY 09/22/21 03/02/22 History spray diclofenac sodium 1 % topical gel 4 g TOPICAL QID 09/22/21 03/02/22 History dulaglutide 3 mg/0.5 mL 3 mg SUBCUT WK 09/22/21 03/02/22 History subcutaneous pen injector (Trulicity) furosemide 40 mg tablet 40 mg PO QAM 09/22/21 03/02/22 History insulin aspart U-100 100 unit/mL 10 unit SUBCUT TID 09/22/21 03/02/22 History (3 mL) subcutaneous pen (Novolog Flexpen U-100 Insulin aspart) rosuvastatin 40 mg tablet 40 mg PO DAILY 09/22/21 03/02/22 History acetaminophen 325 mg tablet 650 mg PO TID PRN #180 tab 10/21/21 03/02/22 Rx gabapentin 100 mg capsule 100 mg PO BID #60 cap 10/21/21 03/02/22 Rx insulin glargine 100 unit/mL (3 50 unit SUBCUT BID #0 ml 10/21/21 03/02/22 Rx mL) subcutaneous pen (Lantus Solostar U-100 Insulin) albuterol sulfate 2.5 mg INHALATION Q6H PRN #75 ml 02/20/22 03/02/22 Rx losartan 100 mg tablet 100 mg PO DAILY 02/20/22 03/02/22 History magnesium 100 mg tablet 100 mg PO DAILY 02/20/22 03/02/22 History potassium gluconate 550 mg (90 mg) 550 mg PO DAILY 02/20/22 03/02/22 History tablet morphine 15 mg tablet,extended 15 mg PO AMHS 03/02/22 03/02/22 History release tramadol 50 mg tablet 50 mg PO Q8 PRN 03/02/22 03/02/22 History Past Med/Surg History Medical History (Updated 03/02/22 @ 18:37 by Shanelle Frost PA-C) Asthma CKD (chronic kidney disease), stage III Combined congestive systolic and diastolic heart failure Complete heart block (06/14/14) Diabetes mellitus, type II Diabetes mellitus, type II, insulin dependent Dyslipidemia Excessive daytime sleepiness Granulomatous interstitial lung disease HTN (hypertension) Morbid obesity due to excess calories Nonischemic cardiomyopathy Pacemaker Physical deconditioning PVD (peripheral vascular disease) Sleep apnea Surgical History H/O tubal ligation History of cardiac cath 2014 - normal coronary arteries; Dr Jorgensen at [facility] History of carpal tunnel release History of cataract removal with insertion of prosthetic lens History of revascularization procedure of lower extremity fem/pop artery revascularization RLE; 09/2017; Dr Gill at [facility] History of total knee arthroplasty 2005; bilateral Family History Mother Leukemia Son Asthma Brother Stroke Social History Smoking Status: Never smoker Second Hand Exposure: No; Hx Alcohol Use: No Hx Substance Use: No Preferred Language: Slovak Communication Ability: Effective [employer] Required: No Beliefs That Will Affect Care: None marital status: Current Living Situation: Spouse Feels Safe at Home: Yes Assistive Devices: Walker Review of Systems Review of Systems: At least ten systems reviewed and negative except as noted in the HPI. Physical Exam Physical Exam: Please see Dr. Cox's addendum for physical exam. Results & Data Results & Data ([facility]) Vital Signs (Past 12 Hours) Vital Signs Temp Pulse Pulse Resp BP BP Pulse Ox 03/02/22 15:00 78 22 100/57 L 100 03/02/22 13:15 100 03/02/22 13:08 84 20 117/59 L 100 03/02/22 10:49 36.4 C L 88 20 116/61 97 Laboratory Results Short CBC 03/02/22 Range/Units 13:03 WBC 9.79 (4.8-10.8) K/uL Hgb 10.4 L (12.0-16.0) g/dL Hct 33.6 L (37-47) % Plt Count 269 (130-400) K/uL BMP 03/02/22 13:03 Sodium 135 L Potassium 4.6 Chloride 98 Carbon Dioxide 29 BUN 28 H Creatinine 2.09 H Glucose 199 H Calcium 8.7 Liver Function 03/02/22 Range/Units 13:03 Total Bilirubin 0.3 (0.2-1.0) mg/dl AST 21 (13-39) U/L ALT 10 (7-52) U/L Alkaline Phosphatase 84 (34-104) U/L Albumin 2.7 L (3.4-5.0) gm/dl Diagnostic Findings Cervical Spine CT 03/02/22 11:35 CT SCAN OF THE CERVICAL SPINE CLINICAL HISTORY: Fall. COMPARISON STUDY: Cervical spine radiographs dated 05/14/2013 TECHNIQUE: CT scan of the cervical spine is performed from the skull base to the upper thoracic spine. Images are reviewed in the axial, sagittal, and coronal planes. IV contrast was not administered for this examination. A dose lowering technique was utilized adhering to the principles of ALARA. CT DOSE: 1281.66 mGy.cm FINDINGS: Skeletal structures: The skeletal structures are osteopenic. There is no evidence of fracture or subluxation involving the cervical spine. Vertebral body height is maintained. There is minimal anterolisthesis at C5-C6. Alignment is otherwise preserved. There is straightening of the cervical lordosis. Anterior osteophytes are seen throughout. The odontoid process and lateral masses are intact. The atlantoaxial articulation is preserved noting productive degenerative change. The spinous processes appear intact. There is mild to moderate multilevel cervical spondylosis. Uncovertebral and facet arthropathy contribute to neural foraminal narrowing at several levels. Intervertebral discs: There is mild multilevel degenerative disc space narrowing. Central canal: Large posterior disc osteophyte complexes are seen at all cervical levels between C3-C4 and C6-C7. This likely contributes to multilevel acquired compromise of the central canal. Soft tissues: The prevertebral and paraspinous soft tissues are within normal limits. There is atherosclerotic calcification of the carotid bulbs. Pacemaker leads are noted at the left thoracic inlet. Calvarium: The visualized calvarium at the skull base appears intact. Brain parenchyma: Partially visualized brain parenchyma at the skull base is within normal limits. Sinuses and mastoids: Trace mucosal thickening is noted in the maxillary antra. The mastoid air cells are well pneumatized. Lung apices: Clear as visualized. IMPRESSION: 1. There is no evidence of fracture or subluxation involving the cervical spine. 2. Osteopenia and spondylotic change as above. ACT 112: Negative or not required by law. Electronically signed by: Celestino Guerrero M.D. 03/02/2022 1:56 PM Chest X-Ray 03/02/22 11:35 XR chest 1V portable CLINICAL HISTORY: Chest Pain. COMPARISON STUDY: 02/20/2022 TECHNIQUE: 1 view of the chest FINDINGS: Single frontal view of the chest demonstrates the heart to again be enlarged status post previous pacer placement. Compared to previous examination, there has been interval development of central vascular congestion. No definite peripheral interstitial edema is seen. There is no evidence for pleural effusion. No confluent alveolar opacities are identified. There is no acute osseous pathology. IMPRESSION: 1. Interval development of central vascular congestion characteristic of cardiac decompensation. ACT 112: Negative or not required by law. Electronically signed by: Cesar Mcdowell M.D. 03/02/2022 1:[address] 03/02/22 11:35 CT head/brain wo con CLINICAL HISTORY: fall . Posterior head injury/laceration COMPARISON STUDY: 09/27/2021 CT DOSE: TECHNIQUE: Standard CT of the Brain was performed without IV contrast. A dose lowering technique was utilized adhering to the principles of ALARA. FINDINGS: Extraaxial space: There is no evidence for subdural hematoma. There are no extra-axial fluid collections. Ventricles and cisterns: The ventricles are mildly dilated bilaterally. There is no evidence for midline shift or mass effect. Parenchyma: There is no subarachnoid or intraparenchymal hemorrhage. There is no evidence for an acute infarct or cerebral edema. There is mild cerebral cortical atrophy and decreased attenuation in the periventricular white matter representing remote small vessel disease. There are no gross mass lesions. Osseous structures: There is no evidence for an acute fracture. There is mild asymmetric mucosal thickening involving the left maxillary antrum. The remaining visualized paranasal sinuses are clear. The mastoid air cells are clear bilaterally. Soft tissues: There is no evidence for focal soft tissue swelling. IMPRESSION: 1. No acute intracerebral pathology. 2. Mild cerebral cortical atrophy and remote small vessel disease. 3. Mild chronic left maxillary sinusitis. ACT 112: Negative or not required by law. Electronically signed by: Cesar Mcdowell M.D. 03/02/2022 2:27 PM Pelvis X-Ray 03/02/22 11:35 XR pelvis 1-2V routine CLINICAL HISTORY: fall TECHNIQUE: Prior hip and pelvis radiograph 09/22/2021 Comparison: None available at the time of this dictation. FINDINGS: There is no evidence of an acute fracture. Degenerative changes are seen in the hip joints and lumbar spine. No soft tissue abnormality is seen. IMPRESSION: No evidence of acute osseous injury. ACT 112: Negative or not required by law. Electronically signed by: Mahesh Evans M.D. 03/02/2022 1:49 PM Venous Doppler Study 03/02/22 11:35 US venous doppler LE RT HISTORY: 76 years-old Female rle swelling acute pain and swelling of the right lower leg COMPARISON: 05/07/2013 TECHNIQUE: Multiple real-time sonographic images of the right lower extremity deep venous structures were obtained assessing grayscale appearance, color and spectral flow. FINDINGS: Normal flow, compressibility, phasicity and augmentation. IMPRESSION: No sonographic evidence of deep venous thrombosis. ACT 112: Negative or not required by law. The above report was generated using voice recognition software. It may contain grammatical, syntax or spelling errors. Electronically signed by: Aditya Gallegos M.D. 03/02/2022 3:18 PM Supervising Physician Co-Signing Physician Notes I personally reviewed the record. Patient is interviewed and examined at bedside. Patient's care is coordinated with Shanelle Frost PA-C. Please refer to the documentation above for details of patient's presentation and for discussion of other issues. (1) Fall Encounter type: initial encounter Qualified Code(s): W19.XXXA - Unspecified fall, initial encounter
--- NOTE | 2022-03-02 18:46 | Communication Note ---
Date of Service: March 02, 2022 Patient is a 76-year-old female with multiple comorbidities presents with history of fall resulting in head trauma and scalp laceration. She denies any chest pain, shortness of breath, dizziness, loss of consciousness. Patient was admitted 5 months ago for periprosthetic knee fracture and was discharged to rehab at the time. She was prescribed Augmentin for right lower extremity wounds for recent visit to ED and completed the course. Patient was prescribed clindamycin by PCP for further management of right lower extremity wounds. She is noncompliant as per records although she admits to taking them medications regularly. She uses a cane, wheelchair for ambulation at baseline. She is slightly groggy currently after having sedation for scalp laceration while in ED. History is also obtained from patient's family at bedside. Please review HPI for complete details of presentation. Blood work showed chronic normocytic anemia with hemoglobin 10.4, normal WBC count, sodium 135, BUN 28, creatinine 2.09, glucose 199, albumin 2.7, lipase 16. CT neck showed no acute fractures or subluxation. Osteopenia and spondylotic changes noted. Chest x-ray showed central vascular congestion suggestive of CHF. CT head showed no acute intracerebral pathology. Pelvic x-ray showed no acute osseous injury. Venous Doppler no evidence of DVT. Physical Exam: Vitals signs as noted above General Appearance:Morbidly Obese, no apparent distress Head: normocephalic, +traumatic: Occipital scalp laceration Eyes: normal inspection, EOMI Neck: supple, Trachea midline Respiratory/Chest: Normal breath sounds, CTA, No accessory muscle use Cardiovascular: S1, S2, No murmur Abdomen/GI:Soft, Non tender, Bowel sounds present Extremities/Musculoskeletal:normal inspection, B/L LE 2+ edema, ulcers on right foot with mild erythema of right lower extremity. Fourth toe necrotic ulceration noted as well. Neurologic/Psych:AAOX3, grossly no focal neurological deficits Skin: normal color, warm Mechanical Fall Scalp Laceration Ambulatory dysfunction Wound care, pain control, fall precautions, check orthostatics, PT OT May need Rehab Acute on chronic systolic and diastolic CHF IV Lasix 40 mg daily, monitor I's and O's, daily weight, volume status, renal function Check repeat chest x-ray tomorrow Continue home medications, hold losartan for now given relatively low blood pressure and elevated creatinine Consider cardiology evaluation if needed Bladder scan Q shift Right lower extremity ulcers/cellulitis Continue home clindamycin Obtain arterial Dopplers to rule out peripheral artery disease Consider vascular surgery evaluation if needed Continue wound care ISAIAS Chronic oxygen dependency On 3 L at bedtime at baseline CKD IIIB/IV Monitor renal function Hold losartan for now Consider nephrology evaluation. DM II Last HbA1c 7.9 Continue insulin therapy Monitor BGs Morbid obesity BMI 49 I personally reviewed the record. Patient is interviewed and examined at bedside. Patient's care is coordinated with Shanelle Frost PA-C. Please refer to the documentation above for details of patient's presentation and for discussion of other issues.
[2022-03-02] MEDS ORDERED: ACETAMINOPHEN 325 MG TAB PO PRN (21:20)
[2022-03-02] MEDS ORDERED: DEXTROSE 50% 50 ML SYRINGE IV PRN ×2 (21:20→21:45)
[2022-03-02] MEDS ORDERED: ALBUTEROL 0.083% NEBU SOLN 3 ML VIAL INH PRN (21:20)
[2022-03-02] MEDS ORDERED: GLUCOSE 40% GEL 15 GM TUBE PO PRN ×2 (21:20→21:45)
[2022-03-02] MEDS ORDERED: ONDANSETRON INJ 2 MG/ML 2 ML VIAL IV PRN (21:20)
[2022-03-02] MEDS ORDERED: GLUCAGON FOR INJ 1 MG VIAL SQ PRN (21:20)
[2022-03-02] MEDS ORDERED: GLUCOSE 10 TAB/TUBE PO PRN ×2 (21:20→21:45)
[2022-03-02] MEDS ORDERED: CARBOHYDRATES FOR HYPOGLYCEMIA PO PRN ×2 (21:20→21:45)
[2022-03-02] MEDS ORDERED: POLYETHYLENE (MIRALAX) 17 GM PACK PO PRN (21:20)
[2022-03-02] MEDS ORDERED: GLUCAGON FOR INJ 1 MG VIAL IM PRN (21:45)
[2022-03-02] MEDS: INSULIN ASPART PER UNIT SC SCH (21:51)
[2022-03-02] MEDS: LANTUS PER UNIT CHARGE SQ SCH (21:51)
[2022-03-02] MEDS: MoRPHine SULFATE CR 15 MG TABCR PO SCH (21:52)
[2022-03-02] MEDS: DICLOFENAC SOD 1% GEL 100 GM TUBE EXT SCH (22:21)
[2022-03-02] MEDS: HEPARIN SOD 5,000 UNIT/0.5 ML VIAL SQ SCH (22:22)
[2022-03-02] MEDS: CLINDAMYCIN HCL 150 MG CAP PO SCH (22:23)
[2022-03-02] MEDS: GABAPENTIN 100 MG CAP PO SCH (22:23)
[2022-03-02] MEDS: carvediloL 12.5 MG TAB PO SCH (22:23)
[2022-03-02] MEDS: SACCHAROMYCES BOULARDII 250 MG CAP PO SCH (22:23)
[2022-03-03 06:21] LABS: Hematocrit (blood only) 31.4 % (37-47); Hemoglobin 9.7 g/dL (12.0-16.0); Mean Corpuscular Hemoglobin 30.1 pg (25-34); Mean Corpuscular Hgb Conc 30.9 g/dL (32-36); Mean Corpuscular Volume 97.5 fL (80-100); Mean Platelet Volume 8.9 fL (7.4-10.4); Platelet Count 265 K/uL (130-400); RDW Coefficient of Variation 20.1 % (11.5-14.5); RDW Standard Deviation 72.2 fL (36.4-46.3); Red Blood Count 3.22 M/uL (4.2-5.4)
[2022-03-03 06:44] LABS: BUN Creatinine Ratio 12.8 (10-20); Calcium 8.2 mg/dl (8.5-10.1); Creatinine Clr Calc Pharmacy 23.5 ml/min; Est GFR (African American) 21.8 ml/min; Est GFR (Non-African American) 18.8 ml/min; Potassium 4.9 mmol/L (3.5-5.1)
--- NOTE | 2022-03-03 07:16 | CT Scan Report ---
CT SCAN OF THE BRAIN WITHOUT IV CONTRAST CLINICAL HISTORY: Head injury. Generalized weakness. COMPARISON STUDY: CT of the brain dated 03/02/2022. TECHNIQUE: Unenhanced axial CT scan of the brain is performed from the vertex to the skull base. A do se lowering technique was utilized adhering to the principles of ALARA. CT DOSE: 1302.24 mGy.cm FINDINGS: Brain parenchyma: There is age-related involutional change noting mild subcortical and periventricula r microangiopathic disease. There is no hemorrhage, mass effect, or evidence of acute territorial isc hemia by CT criteria. Louis-white matter differentiation is preserved. No extra-axial fluid collection is seen. Ventricles, sulci, cisterns: Prominent secondary to involutional change. Intracranial vasculature: There is atherosclerotic calcification of the cavernous carotid and vertebr al arteries. Calvarium: The skeletal structures are osteopenic. No depressed calvarial fracture is identified. Soft tissues: There is a right occipital scalp injury with skin clips in place. Sinuses and mastoids: There is mild mucosal thickening in the left maxillary antrum. The remaining pa ranasal sinuses are clear. The mastoid air cells are well pneumatized. Orbits: The bony orbits are grossly intact. There are bilateral ocular lens implants. IMPRESSION: There is no hemorrhage, mass effect, or evidence of acute territorial ischemia by CT jaden stiles. ACT 112: Negative or not required by law. Electronically signed by: Celestino Guerrero M.D. 03/03/2022 7:13 AM
--- NOTE | 2022-03-03 07:17 | XRay Report ---
XR chest 1V portable HISTORY: 76 years-old Female repeat follow-up study in a patient with acute atypical chest pain COMPARISON: Chest radiograph 03/02/2022, 02/20/2022 TECHNIQUE: Portable AP view of the chest FINDINGS: The cardiac silhouette is enlarged. Pulmonary vascular congestion with interstitial coarsening. No pn eumothorax or large pleural effusion. There is slightly improved aeration of the lungs compared to th e prior study. The bones appear grossly intact. IMPRESSION: Cardiomegaly with slightly improved pulmonary edema. ACT 112: Negative or not required by law. The above report was generated using voice recognition software. It may contain grammatical, syntax o r spelling errors. Electronically signed by: Aditya Gallegos M.D. 03/03/2022 7:16 AM
--- NOTE | 2022-03-03 08:28 | Ultrasound Report ---
US arterial duplex LE BI CLINICAL HISTORY: cold extremities with wounds. COMPARISON: None. TECHNIQUE: Duplex sonography of bilateral lower extremity arterial system bilaterally was performed. Velocity measurements provided are in centimeters per second FINDINGS: Louis scale, Doppler spectral analysis, and color imaging performed. The study is limited a s the vessels are very calcified throughout both lower extremities. Right common femoral artery: Monophasic flow velocity. 81 Right profunda femoris artery: Monophasic flow velocity. 81 Right superficial femoral artery: Monophasic flow velocity. 63 Right popliteal artery: Monophasic flow velocity. 41 Right posterior tibial artery: Unable to visualize. Right anterior tibial artery: Unable to visualize. Right dorsalis pedis artery: Unable to visualize Right peroneal artery: Unable to visualize. Right flow velocities: Extensive atherosclerotic calcification particularly involving the arteries o f the calf. None of the calf arteries couldn't be visualized on this study. Left common femoral artery: Monophasic flow velocity. 125 Left profunda femoris artery: Monophasic flow velocity. 53 Left superficial femoral artery: Monophasic flow velocity. 116 Left popliteal artery: Monophasic flow velocity. 132 proximally and 17 distally Left posterior tibial artery: Monophasic flow velocity. 43 Left anterior tibial artery: Monophasic flow velocity. 82 Left dorsalis pedis artery: Monophasic flow velocity. 51 Left peroneal artery: Unable to visualize. Left flow velocities: Extensive vascular calcification is also present on the left to a lesser degre e with nonvisualization of the peroneal artery within the calf. Additionally, there is segmental incr eased flow velocity of the proximal popliteal artery characteristic of focal stenosis. IMPRESSION: 1. Nonvisualization of flow to the arteries of the right calf. Extensive atherosclerotic calcificatio n is present. 2. Nonvisualization of flow to the peroneal artery on the left. Again extensive atherosclerotic calci fication is present. 3. Increased flow velocity involving the left proximal popliteal artery characteristic of focal steno sis. 4. Monophasic flow throughout both lower extremities related to diffuse atherosclerotic disease. ACT 112: Negative or not required by law. Electronically signed by: Cesar Mcdowell M.D. 03/03/2022 8:26 AM
[2022-03-03] MEDS: CEROVITE ADV FORMULA TAB PO SCH (08:44)
[2022-03-03] MEDS: carvediloL 12.5 MG TAB PO SCH ×2 (08:44→19:57)
[2022-03-03] MEDS: LORATADINE 10 MG TAB PO SCH (08:44)
[2022-03-03] MEDS: MAGNESIUM OXIDE 400 MG TAB PO SCH (08:44)
[2022-03-03] MEDS: MONTELUKAST SODIUM 10 MG TABLET PO SCH (08:45)
[2022-03-03] MEDS: SACCHAROMYCES BOULARDII 250 MG CAP PO SCH ×2 (08:45→19:57)
[2022-03-03] MEDS: GABAPENTIN 100 MG CAP PO SCH ×2 (08:45→19:57)
[2022-03-03] MEDS: CYANOCOBALAMIN (B-12) 100 MCG TABLET PO SCH (08:45)
[2022-03-03] MEDS: CLINDAMYCIN HCL 150 MG CAP PO SCH ×3 (08:45→17:36)
[2022-03-03] MEDS: DICLOFENAC SOD 1% GEL 100 GM TUBE EXT SCH ×4 (08:46→19:58)
[2022-03-03] MEDS: ASPIRIN 81 MG ECTAB PO SCH (08:46)
[2022-03-03] MEDS: FUROSEMIDE 40 MG/4 ML VIAL IV SCH (08:46)
[2022-03-03] MEDS: CLOPIDOGREL BISULFATE 75 MG TAB PO SCH (08:47)
[2022-03-03] MEDS ORDERED: ROSUVASTATIN CALCIUM 20 MG TAB PO SCH (09:00)
[2022-03-03] MEDS: MoRPHine SULFATE CR 15 MG TABCR PO SCH ×2 (09:01→19:56)
[2022-03-03] MEDS: INSULIN ASPART PER UNIT SC SCH ×4 (09:01→23:19)
[2022-03-03] MEDS: LANTUS PER UNIT CHARGE SQ SCH ×2 (09:04→23:19)
[2022-03-03] MEDS ORDERED: PERFLUTREN LIPID MICROSPHERE (DEFINITY) IV ONE (10:31)
[2022-03-03] MEDS ORDERED: MoRPHine SULFATE 4 MG/ML 1 ML CARP\\VIAL IV STA (12:57)
[2022-03-03] MEDS: HEPARIN SOD 5,000 UNIT/0.5 ML VIAL SQ SCH (13:08)
--- NOTE | 2022-03-03 13:46 | Nephrology Consultation ---
Date of Consultation March 03, 2022 Assessment & Plan (1) Acute kidney injury superimposed on chronic kidney disease: Eloy on CKD -Likely secondary to volume overload -Clinically difficult to assess her volume status because of her body habitus, but chest x-ray suggestive of CHF -Agree with 40 mg IV Lasix daily(she was on 40 mg oral) -Reassess in a.m, for further diuretic dosing. -Daily weights preferably on the same scale -Agree with stopping losartan at the moment -Input and output (2) Cellulitis of right leg: As per primary (3) Fall: (4) Diabetes mellitus, type II: History of Present Illness Reason for Consultation: Acute kidney injury on CKD Attending Physician: Randy Shaver MD History of Present Illness 76yo F with a CKD III ,baseline renal function @ 1.6-1.7, early CKD 4, last seen by Nephrology on 03/04/21 other significant PMH of uncontrolled DM II, asthma, severe sleep apnea on 3L NC HS, combined systolic and diastolic heart failure( On Oral furosemide 40 mg daily) h/o complete heart block s/p pacemaker placement, LBBB, PVD,dyslipidemia, morbid obesity . She presented to the ER after a mechanical fall.She has been at [facility] for rehab for 5 months following admission at the beginning of the year following periprosthetic knee fracture and was discharged home from SNF 10 days ago. Can ambulate a few steps and has a wheelchair at home as well.She was supposed to been seen by nephrology post discharge. ER labs were significant for ELOY on CKD ( BUN/ SCR - 28/2.09).Chest x-ray showed central vascular congestion suggestive of CHF. CT head showed no acute intracerebral pathology. Pelvic x-ray showed no acute osseous injury. Venous Doppler no evidence of DVT.Denied fever, chills, chest pain, SOB, nausea, vomiting, abdominal pain, dysuria, diarrhea or constipation. Allergies Allergy/AdvReac Type Severity Reaction Status Date / Time fluticasone Allergy Severe WATER ON Verified 03/02/22 17:13 LUNGS salmeterol Allergy Severe WATER ON Verified 03/02/22 17:13 LUNGS propoxyphene Allergy Mild FROM Verified 03/02/22 17:13 DARVOCET benzocaine Allergy Unknown Unknown Verified 03/02/22 17:13 mold Allergy Unknown Unknown Verified 03/02/22 17:13 acetaminophen [From Vicodin] AdvReac Intermediate hallucinati Verified 03/02/22 17:13 ons hydrocodone [From Vicodin] AdvReac Intermediate hallucinati Verified 03/02/22 17:13 ons oxycodone AdvReac Intermediate Hallucinati Verified 03/02/22 17:13 ng prednisone AdvReac Intermediate HYPERGLYCEM Verified 03/02/22 17:13 IA Home Medications Medication Instructions Recorded Confirmed Type aspirin 81 mg tablet,delayed 81 mg PO DAILY 10/01/19 03/02/22 History release carvedilol 12.5 mg tablet 12.5 mg PO BID 10/01/19 03/02/22 History clopidogrel 75 mg tablet 75 mg PO DAILY 10/01/19 03/02/22 History cyanocobalamin (vitamin B-12) 100 100 mcg PO DAILY 10/01/19 03/02/22 History mcg tablet loratadine 10 mg tablet 10 mg PO DAILY 10/01/19 03/02/22 History montelukast 10 mg tablet 10 mg PO DAILY 10/01/19 03/02/22 History multivitamin with minerals 1 tab PO DAILY 10/01/19 03/02/22 History (Multiple Vitamin-Minerals) budesonide 32 mcg/actuation nasal 2 spray INTRANASAL DAILY 09/22/21 03/02/22 History spray diclofenac sodium 1 % topical gel 4 g TOPICAL QID 09/22/21 03/02/22 History dulaglutide 3 mg/0.5 mL 3 mg SUBCUT WK 09/22/21 03/02/22 History subcutaneous pen injector (Trulicity) furosemide 40 mg tablet 40 mg PO QAM 09/22/21 03/02/22 History insulin aspart U-100 100 unit/mL 10 unit SUBCUT TID 09/22/21 03/02/22 History (3 mL) subcutaneous pen (Novolog Flexpen U-100 Insulin aspart) rosuvastatin 40 mg tablet 40 mg PO DAILY 09/22/21 03/02/22 History acetaminophen 325 mg tablet 650 mg PO TID PRN #180 tab 10/21/21 03/02/22 Rx gabapentin 100 mg capsule 100 mg PO BID #60 cap 10/21/21 03/02/22 Rx insulin glargine 100 unit/mL (3 50 unit SUBCUT BID #0 ml 10/21/21 03/02/22 Rx mL) subcutaneous pen (Lantus Solostar U-100 Insulin) albuterol sulfate 2.5 mg INHALATION Q6H PRN #75 ml 02/20/22 03/02/22 Rx losartan 100 mg tablet 100 mg PO DAILY 02/20/22 03/02/22 History magnesium 100 mg tablet 100 mg PO DAILY 02/20/22 03/02/22 History potassium gluconate 550 mg (90 mg) 550 mg PO DAILY 02/20/22 03/02/22 History tablet Saccharomyces boulardii 250 mg 250 mg PO BID 03/02/22 03/02/22 History capsule clindamycin HCl 300 mg capsule 300 mg PO QID 03/02/22 03/02/22 History morphine 15 mg tablet,extended 15 mg PO BID PRN 03/02/22 03/02/22 History release tramadol 50 mg tablet 50 mg PO Q8 PRN 03/02/22 03/02/22 History Patient History Medical History (Updated 03/03/22 @ 13:46 by Jill Chavez MD) Asthma CKD (chronic kidney disease), stage III Combined congestive systolic and diastolic heart failure Complete heart block (06/14/14) Diabetes mellitus, type II Diabetes mellitus, type II, insulin dependent Dyslipidemia Excessive daytime sleepiness Granulomatous interstitial lung disease HTN (hypertension) Morbid obesity due to excess calories Nonischemic cardiomyopathy Pacemaker Physical deconditioning PVD (peripheral vascular disease) Sleep apnea Surgical History H/O tubal ligation History of cardiac cath 2014 - normal coronary arteries; Dr Jorgensen at [facility] History of carpal tunnel release History of cataract removal with insertion of prosthetic lens History of revascularization procedure of lower extremity fem/pop artery revascularization RLE; 09/2017; Dr Gill at [facility] History of total knee arthroplasty 2005; bilateral Family History Mother Leukemia Son Asthma Brother Stroke Social History Smoking Status: Never smoker Second Hand Exposure: No; Hx Alcohol Use: No Hx Substance Use: No Preferred Language: Panamanian Communication Ability: Effective Chemical Analyst Required: No Beliefs That Will Affect Care: None marital status: Current Living Situation: Spouse Other Information That Helps Us Care for You: No Feels Safe at Home: Yes Safety Concerns: Feels Safe At This Time Assistive Devices: Cane, Oxygen - at Night, Walker and Wheelchair Review of Systems Review of Systems: Morbidly obese No shortness of breath Stable chronic bilateral pedal edema. Physical Exam Physical Exam: General Appearance:Morbidly Obese, no apparent distress Head: normocephalic, +traumatic: Occipital scalp laceration Eyes: normal inspection, EOMI Neck: supple, Trachea midline Respiratory/Chest: Normal breath sounds, CTA, No accessory muscle use Cardiovascular: S1, S2, No murmur Abdomen/GI:Soft, Non tender, Bowel sounds present Extremities/Musculoskeletal:normal inspection, B/L LE 2+ edema, ulcers on right foot with mild erythema of right lower extremity Results & Data ([facility]) Vital Signs (Past 12 Hours) Vital Signs Temp Pulse Resp BP BP Pulse Ox 03/03/22 07:28 36.9 C 83 19 109/61 99 03/03/22 03:04 84 20 108/63 100 Laboratory Results 03/03/22 05:34 03/03/22 05:34 (1) Fall Encounter type: initial encounter Qualified Code(s): W19.XXXA - Unspecified fall, initial encounter
[2022-03-03] MEDS ORDERED: ACETAMINOPHEN 1,000 MG/100 ML VIAL IV SCH (18:30)
[2022-03-03] MEDS ORDERED: PIPERACILLIN/TAZOBACTAM 2.25 GM in DEXTROSE 5% 100 ML IV SCH (18:30)
[2022-03-03] MEDS ORDERED: PIPERACILLIN/TAZOBACTAM 4.5 GM in DEXTROSE 5% 100 ML IV ONE (19:00)
[2022-03-03 19:16] LABS: Basophils # (auto) 0.08 K/uL (0-0.2); Basophils % (auto) 1.2 %; Eosinophils # (auto) 0.29 K/uL (0-0.50); Eosinophils % (auto) 4.4 %; Hemoglobin 10.2 g/dl (12.0-16.0); Immature Granulocytes # (auto) 0.02 K/uL (0.00-0.02); Immature Granulocytes % (auto) 0.3 %; Lymphocytes # (auto) 1.49 K/uL (1.2-3.4); Lymphocytes % (auto) 22.6 %; Mean Corpuscular Hemoglobin 30.2 pg (25.0-34.0); Mean Corpuscular Hgb Conc 30.9 g/dL (32.0-36.0); Mean Corpuscular Volume 97.6 fL (80.0-100.0); Mean Platelet Volume 9.1 fL (9.4-12.3); Monocytes # (auto) 0.59 K/uL (0.24-0.82); Neutrophils # (auto) 4.11 K/uL (1.4-6.5); Neutrophils % (auto) 62.5 %; Platelet Count 261 K/uL (130-400); RDW Coefficient of Variation 19.7 % (11.5-14.5); RDW Standard Deviation 71.4 fL (36.4-46.3); Red Blood Count 3.38 M/uL (3.93-5.22); White Blood Count 6.58 K/ul (4.8-10.8)
--- NOTE | 2022-03-03 19:19 | XRay Report ---
XR foot RT 2V CLINICAL HISTORY: infected wound, r/o osteomyelitis COMPARISON: Right foot radiographs September 30, 2021. FINDINGS: Evaluation was suboptimal given difficulty positioning. Extensive vascular calcification i s noted. There is no acute fracture within the right foot. Plantar calcaneal spur is noted. Note is m wu of apparent erosion of the plantar aspect of the spur as well as the adjacent calcaneus. No addit ional sites of bony erosion are identified. Hindfoot bandage is noted. IMPRESSION: Apparent erosion of the plantar calcaneal spur. This may reflect acute osteomyelitis and could be correlated with site of wound. ACT 112: Negative or not required by law. Electronically signed by: Sushil Michele M.D. 03/03/2022 7:17 PM
[2022-03-03 19:36] LABS: Albumin Globulin Ratio 0.7 (0.9-2); Albumin Level 2.9 gm/dl (3.4-5.0); BUN Creatinine Ratio 13.4 (10-20); Bilirubin,Total 0.4 mg/dl (0.2-1.0); Creatinine Clr Calc Pharmacy 23.1 ml/min; Est GFR (African American) 21.2 ml/min; Est GFR (Non-African American) 18.3 ml/min; Potassium 4.9 mmol/L (3.5-5.1); Total Protein 6.9 gm/dl (6.0-8.3)
--- NOTE | 2022-03-03 19:41 | Hospitalist Progress Note ---
Date of Service March 03, 2022 Assessment & Plan (1) Fall: (2) Weakness: (3) Scalp laceration: (4) Cellulitis of right leg: (5) Diabetes mellitus, type II: (6) Combined congestive systolic and diastolic heart failure: (7) CKD (chronic kidney disease), stage III: (8) Complete heart block: (9) Pacemaker: (10) Sleep apnea: Plan: Per admitting service notes with addendum: This is a 76yo F with a PMH of uncontrolled DM II, asthma, severe sleep apnea on 3L NC HS, combined systolic and diastolic heart failure, h/o complete heart block s/p pacemaker placement, LBBB, PVD, CKD III, dyslipidemia, morbid obesity and other medical problems as below who presents from home after fall. Fall Generalized weakness Scalp laceration Recently discharged from 5 months in [facility], minimal ambulatory ability at baseline CT head, CT cervical spine and pelvis XR without evidence of acute injury Scalp laceration repaired in ED. No headache Fall precautions, PT/OT evaluation Acute Confusion likely Metabolic encephalopathy from underlying infection, ELOY on CKD stage III, rule out intracranial bleed noted eveningof 03/03/[address] head stat Blood cultures, urine cultures start IV daptomycin plus Zosyn Management of ELOY per below Transfer to [facility] telemetry RLE cellulitis Infected Toe Ulcers, DIabetic foot Infection Severe peripheral artery disease, s/p R popliteal artery balloon angioplasty 2017 Completed course of Augmentin prescribed in ER,also given 10d course of Clinda prescribed on 02/[address] Jones Venous doppler without evidence of DVT. Arterial Doppler:(+) nonvisualization of flow in the R calf not improving with outpatient PO antibiotics IV Antibiotics and cultures per above Dr Machuca not available until 03/08/22 Discussed with vascular surgery in [place] Dr. Plummer, recommend transfer to [place] when bed available for further evaluation of PAD currently leg is warm, erythematous, but poor pulses on exam Continue IV Dapto plus Zosyn monitor closely, call [facility] if with any changes DM II December 2021 a1c much improved at 7.9 (from 13) Basal/bolus regimen while in-patient BSG AC HS Combined systolic and diastolic heart failure Slight increase in edema in BLE. Transition to IV Lasix 40mg IV for now No CP, SOB or weight gain Repeat CXR in AM. Daily weights, strict intake and output, low sodium diet -- Question mild CHF exacerbation --On IV Lasix, monitor crea Acute on chronic CKD Cr 2.09 today (baseline ~ 1.7-1/8). Hold losartan for now. Avoid nephrotoxic agents as able. Repeat BMP daily --crea 2.4 today Staffing Manager consulted Monitor closely while on IV Lasix Complete heart block s/p pacemaker placement ISAIAS 3L NC O2 HS DVT Ppx: SQ heparin Code status: FULL PCP: Robert Dispo: Transfer to [facility] when bed available plan of care discussed with patient's at the bedside in detail and at length all questions answered he is understanding, agreeable, comfortable with the plan of care Admission and Anticipated Discharge Date Admission Date: March 02, 2022 Subjective Follow-up for diabetic foot ulcers, right lower extremity lower leg cellulitis, acute kidney injury, etc. Seen with patient's at bedside Patient has been noted to be confused, moaning this evening On exam patient resting in bed, on 2 L of oxygen Not in acute respiratory distress but moaning Can tell me her 's name but otherwise confused, does not answer questions appropriately Seems to be in pain To move all extremities equally, no focal neurologic deficits noted Review of Systems Review of Systems: all noted and negative except for above Physical Exam Physical Exam: General- oriented x 1, not in distress, but uncomfortable, confused Head- atraumatic Eyes- PERRL, EOMI, anicteric ENT- oropharynx clear Neck- supple, no JVD, no adenopathy, no thyromegaly; carotids +2/2, no bruits appreciated Lungs- clear to auscultation bilaterally, no rales/wheezes Heart- normal rate, regular rhythm; no murmur, no gallop, no rub appreciated Abdomen- normal bowel sounds, nondistended, soft, nontender, no masses or hepatosplenomegaly Extremities- Right lower leg: Positive erythema from mid calf down Warm to touch Poor pulses Positive scabbed wounds over the great big toe, second toe, fourth toe Neuro- alert, oriented x 1; confused, CN 2-12 grossly intact; motor 5/5 bilaterally;sensation 100% on all extremities; no other gross focal neurologic deficits Skin- warm & dry Results & Data Results & Data ([facility]) Vital Signs (Past 12 Hours) Vital Signs Temp Pulse Resp BP Pulse Ox 03/03/22 16:51 36.6 C 78 18 113/66 100 (1) Fall Encounter type: initial encounter Qualified Code(s): W19.XXXA - Unspecified fall, initial encounter
[2022-03-03] MEDS: ACETAMINOPHEN 500 MG TAB PO SCH (19:56)
[2022-03-03] MEDS: DAPTOmycin 450 MG in SYRINGE 0 ML IV SCH (20:20)
[2022-03-03 21:47] LABS: Appearance Urine Cloudy (Clear); Bacteria Urine Automated Negative (Negative); Bilirubin Urine Negative (Negative); Blood Urine Negative (Negative); Cast Urine Automated 0 /lpf (0-5); Color Urine Yellow; Glucose Urine UA Negative (Negative); Ketones Urine Negative (Negative); Leukocyte Esterase Urine 2+ (Negative); Nitrite Urine Negative (Negative); Protein Urine Trace (Negative); Specific Gravity Urine 1.017 (1.000-1.030); Urobilinogen Urine Negative (Negative); WBC Urine Automated >30 /hpf (0-5)
[2022-03-03 23:01] LABS: Calcium Oxalate Crystals Urine Present (None Prsent); RBC Urine Automated 0-4 /hpf (0-4)
[2022-03-03] MEDS ORDERED: HYDROmorphone INJ 0.5 MG/0.5 ML SYR IV PRN ×2 (23:26→23:28)
[2022-03-03] MEDS ORDERED: oxyCODONE HCL IR 5 MG TAB (IMMEDIATE RELEASE) PO PRN (23:30)
[2022-03-04] MEDS: PIPERACILLIN/TAZOBACTAM 4.5 GM in DEXTROSE 5% 100 ML IV SCH ×3 (02:00→18:03)
[2022-03-04] MEDS: ACETAMINOPHEN 500 MG TAB PO SCH ×2 (06:10→18:57)
--- NOTE | 2022-03-04 06:56 | CT Scan Report ---
CT head/brain wo con CLINICAL HISTORY: 76 years-old Female with altered mental status, head trauma. Acutely altered menta l status TECHNIQUE: Multiple axial CT images of the head were obtained without contrast. A dose lowering tech nique was utilized adhering to the principles of ALARA. CT DOSE: 614.27 mGy.cm COMPARISON: 03/03/2022 FINDINGS: No acute intracranial hemorrhage, midline shift, intra-axial mass, hydrocephalus, territorial ischemi a or abnormal extra-axial collection. Cerebral vascular calcifications. Mild involutional changes. Miles ggestion of chronic microvascular ischemic disease. Unchanged calcification adjacent to the left fron ava lobe on image 26. The calvarium is intact. Minimal mucosal thickening of the left maxillary sinus. The mastoid air karl ls are clear. Prior bilateral lens replacement. Skin tushar of the right occipital scalp. IMPRESSION: No acute intracranial abnormality. ACT 112: Negative or not required by law. The above report was generated using voice recognition software. It may contain grammatical, syntax o r spelling errors. Electronically signed by: Aditya Gallegos M.D. 03/04/2022 6:55 AM
[2022-03-04 08:39] LABS: Calcium 8.6 mg/dl (8.5-10.1); Creatinine Clr Calc Pharmacy 24.5 ml/min; Est GFR (African American) 22.8 ml/min; Est GFR (Non-African American) 19.7 ml/min; Potassium 5.2 mmol/L (3.5-5.1)
[2022-03-04 08:42] LABS: Hematocrit (blood only) 32.6 % (34.1-44.9); Mean Corpuscular Hgb Conc 30.7 g/dL (32.0-36.0); Mean Corpuscular Volume 97.9 fL (80.0-100.0); Platelet Count 243 K/uL (130-400); RDW Coefficient of Variation 19.2 % (11.5-14.5); RDW Standard Deviation 70.9 fL (36.4-46.3); Red Blood Count 3.33 M/uL (3.93-5.22); White Blood Count 7.08 K/ul (4.8-10.8)
[2022-03-04] MEDS: INSULIN ASPART PER UNIT SC SCH ×4 (08:49→21:43)
[2022-03-04] MEDS: ASPIRIN 81 MG ECTAB PO SCH (11:46)
[2022-03-04] MEDS: carvediloL 12.5 MG TAB PO SCH ×2 (11:46→21:32)
[2022-03-04] MEDS: CYANOCOBALAMIN (B-12) 100 MCG TABLET PO SCH (11:46)
[2022-03-04] MEDS: CLOPIDOGREL BISULFATE 75 MG TAB PO SCH (11:46)
[2022-03-04] MEDS: MAGNESIUM OXIDE 400 MG TAB PO SCH (11:47)
[2022-03-04] MEDS: MONTELUKAST SODIUM 10 MG TABLET PO SCH (11:47)
[2022-03-04] MEDS: MoRPHine SULFATE CR 15 MG TABCR PO SCH ×2 (11:47→21:37)
[2022-03-04] MEDS: DICLOFENAC SOD 1% GEL 100 GM TUBE EXT SCH ×4 (11:47→21:32)
[2022-03-04] MEDS: GABAPENTIN 100 MG CAP PO SCH ×2 (11:47→21:34)
[2022-03-04] MEDS: FUROSEMIDE 40 MG/4 ML VIAL IV SCH (11:47)
[2022-03-04] MEDS: LORATADINE 10 MG TAB PO SCH (11:47)
[2022-03-04] MEDS: SACCHAROMYCES BOULARDII 250 MG CAP PO SCH ×2 (11:48→22:16)
[2022-03-04] MEDS: CEROVITE ADV FORMULA TAB PO SCH (11:48)
[2022-03-04] MEDS: LANTUS PER UNIT CHARGE SQ SCH ×2 (11:55→21:43)
--- NOTE | 2022-03-04 12:04 | Hospitalist Progress Note ---
Date of Service March 04, 2022 Assessment & Plan (1) Fall: (2) Weakness: (3) Scalp laceration: (4) Cellulitis of right leg: (5) Diabetes mellitus, type II: (6) Combined congestive systolic and diastolic heart failure: (7) CKD (chronic kidney disease), stage III: (8) Complete heart block: (9) Pacemaker: (10) Sleep apnea: Plan: This is a 76yo F with a PMH of uncontrolled DM II, asthma, severe sleep apnea on 3L NC HS, combined systolic and diastolic heart failure, h/o complete heart block s/p pacemaker placement, LBBB, PVD, CKD III, dyslipidemia, morbid obesity and other medical problems as below who presents from home after fall. Fall Generalized weakness Scalp laceration Recently discharged from 5 months in [facility], minimal ambulatory ability at baseline CT head, CT cervical spine and pelvis XR without evidence of acute injury Scalp laceration repaired in ED. No headache Fall precautions, PT/OT evaluation Positive confusion, likely encephalopathy from underlying infection, ELOY on CKD stage III, rule out intracranial bleed Repeat CT head stat - negative Blood cultures, urine cultures IV daptomycin plus Zosyn Management of ELOY per below Transfer to [facility] telemetry ABG - pending RLE cellulitis Severe peripheral artery disease Possible osteomyelitis Improving. Completed course of Augmentin prescribed in ER, continue 10d course of Clinda prescribed on 02/[address] Jones, continue probiotics Venous doppler without evidence of DVT. Arterial Doppler ordered to evaluate for component of PAD IMPRESSION: 1. Nonvisualization of flow to the arteries of the right calf. Extensive atherosclerotic calcification is present. 2. Nonvisualization of flow to the peroneal artery on the left. Again extensive atherosclerotic calcification is present. 3. Increased flow velocity involving the left proximal popliteal artery characteristic of focal stenosis. 4. Monophasic flow throughout both lower extremities related to diffuse atherosclerotic disease. R Foot Xray (03/03/22) IMPRESSION: Apparent erosion of the plantar calcaneal spur. This may reflect acute osteomyelitis and could be correlated with site of wound. Pain control Antibiotics and cultures per above Discussed with vascular surgery in [place] Dr. Plummer, recommend transfer to [place] when bed available Continue IV Dapto plus Zosyn DM II December 2021 a1c much improved at 7.9 (from 13) Basal/bolus regimen while in-patient BSG AC HS Combined systolic and diastolic heart failure Slight increase in edema in BLE. Transition to IV Lasix 40mg IV for now / further diuretics per nephro No CP, SOB or weight gain Repeat CXR slightly improved pulm. edema Daily weights, strict intake and output, low sodium diet Acute on chronic CKD Cr 2.3, down from 2.4 (baseline ~ 1.7-1/8). Hold losartan for now. Avoid nephrotoxic agents as able. Repeat BMP daily [employer] consulted, appreciate their input Monitor closely while on IV Lasix next Complete heart block s/p pacemaker placement ISAIAS 3L NC O2 HS DVT Ppx: SQ heparin Code status: FULL PCP: Robert Dispo: Transfer to [facility] when bed available plan of care discussed with patient's at the bedside in detail and at length yesterday with prior provider he is understanding, agreeable, comfortable with the plan of care Admission and Anticipated Discharge Date Admission Date: March 02, 2022 Subjective Follow-up for diabetic foot ulcers, right lower extremity lower leg cellulitis, acute kidney injury, etc. Patient has been noted to be confused, moaning yesterday On exam patient resting in bed, on 2 L of oxygen Not in acute respiratory distress but moaning, she opens her eyes, however she does not answer much Per RN, patient was in pain overnight, received also some pain meds Moves extremities, no focal neurologic deficits noted ELOY, nephrology following X-ray of foot obtained yesterday, possible acute osteomyelitis Repeat CT head last evening, negative will obtain ABG Review of Systems Review of Systems: All systems reviewed & are unremarkable except as noted in Subjective Physical Exam Constitutional: General- oriented x 1, not in distress, but uncomfortable, confused Head - occipital scalp laceration Eyes- PERRL, EOMI, anicteric ENT- oropharynx clear Neck- supple Lungs- clear to auscultation bilaterally, no rales/wheezes Heart- normal rate, regular rhythm; no murmur Abdomen- normal bowel sounds, obese, nondistended, soft, nontender Extremities- Right lower leg: Positive erythema from mid calf down Warm to touch Poor pulses Positive scabbed wounds over the great big toe, second toe, fourth toe, heel Neuro- alert, oriented x 1; confused, able to open her eyes to command, however does not answer appropriately. Moves extremities Skin- warm & dry Results & Data Results & Data ([facility]) Vital Signs (Past 12 Hours) Vital Signs Temp Pulse Pulse Resp BP BP Pulse Ox 03/04/22 11:13 36.6 C 89 18 101/63 98 03/04/22 07:40 36.5 C 89 18 96/62 L 100 03/04/22 04:03 88 102/65 100 03/04/22 02:55 36.7 C 85 22 88/51 L 93 03/04/22 01:43 84 Laboratory Results 03/04/22 03/04/22 03/04/22 Range/Units 11:39 07:47 07:47 WBC 7.08 (4.8-10.8) K/ul RBC 3.33 L (3.93-5.22) M/uL Hgb 10.0 L (12.0-16.0) g/dl Hct 32.6 L (34.1-44.9) % MCV 97.9 (80.0-100.0) fL MCH 30.0 (25.0-34.0) pg MCHC 30.7 L (32.0-36.0) g/dL RDW Std Deviation 70.9 H (36.4-46.3) fL RDW Coeff of Javier 19.2 H (11.5-14.5) % Plt Count 243 (130-400) K/uL MPV 9.0 L (9.4-12.3) fL Immature Gran % (Auto) % Neut % (Auto) % Lymph % (Auto) % Navarro % (Auto) % Eos % (Auto) % Baso % (Auto) % Neut # (Auto) (1.4-6.5) K/uL Lymph # (Auto) (1.2-3.4) K/uL [place]arro # (Auto) (0.24-0.82) K/uL Eos # (Auto) (0-0.50) K/uL Baso # (Auto) (0-0.2) K/uL Immature Gran # (Auto) (0.00-0.02) K/uL Sodium 134 L (136-145) mmol/L Potassium 5.2 H (3.5-5.1) mmol/L Chloride 99 (98-107) mmol/L Carbon Dioxide 32 (21-32) mmol/L Anion Gap 3 (3-11) BUN 35 H (6-23) mg/dl Creatinine 2.33 H (0.6-1.2) mg/dl Est Cr Clr Drug Dosing 24.5 ml/min Est GFR ( Amer) 22.8 ml/min Est GFR (Non-Af Amer) 19.7 ml/min BUN/Creatinine Ratio 15.0 (10-20) Glucose 157 H (70-99(Fasting)) mg/dl POC Glucose 165 H (70-99) mg/dl Calcium 8.6 (8.5-10.1) mg/dl Total Bilirubin (0.2-1.0) mg/dl AST (13-39) U/L ALT (7-52) U/L Alkaline Phosphatase (34-104) U/L Total Protein (6.0-8.3) gm/dl Albumin (3.4-5.0) gm/dl Globulin (2.5-4.0) gm/dl Albumin/Globulin Ratio (0.9-2) Urine Color Urine Appearance (Clear) Urine pH (4.5-7.5) Ur Specific [place] (1.000-1.030) Urine Protein (Negative) Urine Glucose (UA) (Negative) Urine Ketones (Negative) Urine Blood (Negative) Urine Nitrite (Negative) Urine Bilirubin (Negative) Urine Urobilinogen (Negative) Ur Leukocyte Esterase (Negative) Urine WBC (Auto) (0-5) /hpf Urine RBC (Auto) (0-4) /hpf U Hyaline Cast (Auto) (0-5) /lpf U Epithel Cells (Auto) (0-5) /lpf Urine Bacteria (Auto) (Negative) Calcium Oxalate Crystal (None Prsent) Urine Yeast (None Prsent) 03/04/22 03/03/22 03/03/22 Range/Units 07:22 20:55 20:21 WBC (4.8-10.8) K/ul RBC (3.93-5.22) M/uL Hgb (12.0-16.0) g/dl Hct (34.1-44.9) % MCV (80.0-100.0) fL MCH (25.0-34.0) pg MCHC (32.0-36.0) g/dL RDW Std Deviation (36.4-46.3) fL RDW Coeff of Javier (11.5-14.5) % Plt Count (130-400) K/uL MPV (9.4-12.3) fL Immature Gran % (Auto) % Neut % (Auto) % Lymph % (Auto) % [place] % (Auto) % Eos % (Auto) % Baso % (Auto) % Neut # (Auto) (1.4-6.5) K/uL Lymph # (Auto) (1.2-3.4) K/uL [place] # (Auto) (0.24-0.82) K/uL Eos # (Auto) (0-0.50) K/uL Baso # (Auto) (0-0.2) K/uL Immature Gran # (Auto) (0.00-0.02) K/uL Sodium (136-145) mmol/L Potassium (3.5-5.1) mmol/L Chloride (98-107) mmol/L Carbon Dioxide (21-32) mmol/L Anion Gap (3-11) BUN (6-23) mg/dl Creatinine (0.6-1.2) mg/dl Est Cr Clr Drug Dosing ml/min Est GFR ( Amer) ml/min Est GFR (Non-Af Amer) ml/min BUN/Creatinine Ratio (10-20) Glucose (70-99(Fasting)) mg/dl POC Glucose 172 H 182 H (70-99) mg/dl Calcium (8.5-10.1) mg/dl Total Bilirubin (0.2-1.0) mg/dl AST (13-39) U/L ALT (7-52) U/L Alkaline Phosphatase (34-104) U/L Total Protein (6.0-8.3) gm/dl Albumin (3.4-5.0) gm/dl Globulin (2.5-4.0) gm/dl Albumin/Globulin Ratio (0.9-2) Urine Color Yellow Urine Appearance Cloudy A (Clear) Urine pH 5.0 (4.5-7.5) Ur Specific [place] 1.017 (1.000-1.030) Urine Protein Trace H (Negative) Urine Glucose (UA) Negative (Negative) Urine Ketones Negative (Negative) Urine Blood Negative (Negative) Urine Nitrite Negative (Negative) Urine Bilirubin Negative (Negative) Urine Urobilinogen Negative (Negative) Ur Leukocyte Esterase 2+ H (Negative) Urine WBC (Auto) >30 H (0-5) /hpf Urine RBC (Auto) 0-4 (0-4) /hpf U Hyaline Cast (Auto) 0 (0-5) /lpf U Epithel Cells (Auto) 10-20 H (0-5) /lpf Urine Bacteria (Auto) Negative (Negative) Calcium Oxalate Crystal Present A (None Prsent) Urine Yeast Budding A (None Prsent) 03/03/22 03/03/22 03/03/22 Range/Units 18:58 18:58 16:58 WBC 6.58 (4.8-10.8) K/ul RBC 3.38 L (3.93-5.22) M/uL Hgb 10.2 L (12.0-16.0) g/dl Hct 33.0 L (34.1-44.9) % MCV 97.6 (80.0-100.0) fL MCH 30.2 (25.0-34.0) pg MCHC 30.9 L (32.0-36.0) g/dL RDW Std Deviation 71.4 H (36.4-46.3) fL RDW Coeff of Javier 19.7 H (11.5-14.5) % Plt Count 261 (130-400) K/uL MPV 9.1 L (9.4-12.3) fL Immature Gran % (Auto) 0.3 % Neut % (Auto) 62.5 % Lymph % (Auto) 22.6 % Navarro % (Auto) 9.0 % Eos % (Auto) 4.4 % Baso % (Auto) 1.2 % Neut # (Auto) 4.11 (1.4-6.5) K/uL Lymph # (Auto) 1.49 (1.2-3.4) K/uL Navarro # (Auto) 0.59 (0.24-0.82) K/uL Eos # (Auto) 0.29 (0-0.50) K/uL Baso # (Auto) 0.08 (0-0.2) K/uL Immature Gran # (Auto) 0.02 (0.00-0.02) K/uL Sodium 135 L (136-145) mmol/L Potassium 4.9 (3.5-5.1) mmol/L Chloride 98 (98-107) mmol/L Carbon Dioxide 33 H (21-32) mmol/L Anion Gap 4 (3-11) BUN 33 H (6-23) mg/dl Creatinine 2.47 H (0.6-1.2) mg/dl Est Cr Clr Drug Dosing 23.1 ml/min Est GFR ( Amer) 21.2 ml/min Est GFR (Non-Af Amer) 18.3 ml/min BUN/Creatinine Ratio 13.4 (10-20) Glucose 145 H (70-99(Fasting)) mg/dl POC Glucose 139 H (70-99) mg/dl Calcium 9.0 (8.5-10.1) mg/dl Total Bilirubin 0.4 (0.2-1.0) mg/dl AST 19 (13-39) U/L ALT 10 (7-52) U/L Alkaline Phosphatase 69 (34-104) U/L Total Protein 6.9 (6.0-8.3) gm/dl Albumin 2.9 L (3.4-5.0) gm/dl Globulin 4.0 (2.5-4.0) gm/dl Albumin/Globulin Ratio 0.7 L (0.9-2) Urine Color Urine Appearance (Clear) Urine pH (4.5-7.5) Ur Specific [place] (1.000-1.030) Urine Protein (Negative) Urine Glucose (UA) (Negative) Urine Ketones (Negative) Urine Blood (Negative) Urine Nitrite (Negative) Urine Bilirubin (Negative) Urine Urobilinogen (Negative) Ur Leukocyte Esterase (Negative) Urine WBC (Auto) (0-5) /hpf Urine RBC (Auto) (0-4) /hpf U Hyaline Cast (Auto) (0-5) /lpf U Epithel Cells (Auto) (0-5) /lpf Urine Bacteria (Auto) (Negative) Calcium Oxalate Crystal (None Prsent) Urine Yeast (None Prsent) 03/03/22 Range/Units 12:16 WBC (4.8-10.8) K/ul RBC (3.93-5.22) M/uL Hgb (12.0-16.0) g/dl Hct (34.1-44.9) % MCV (80.0-100.0) fL MCH (25.0-34.0) pg MCHC (32.0-36.0) g/dL RDW Std Deviation (36.4-46.3) fL RDW Coeff of Javier (11.5-14.5) % Plt Count (130-400) K/uL MPV (9.4-12.3) fL Immature Gran % (Auto) % Neut % (Auto) % Lymph % (Auto) % [place] % (Auto) % Eos % (Auto) % Baso % (Auto) % Neut # (Auto) (1.4-6.5) K/uL Lymph # (Auto) (1.2-3.4) K/uL [place] # (Auto) (0.24-0.82) K/uL Eos # (Auto) (0-0.50) K/uL Baso # (Auto) (0-0.2) K/uL Immature Gran # (Auto) (0.00-0.02) K/uL Sodium (136-145) mmol/L Potassium (3.5-5.1) mmol/L Chloride (98-107) mmol/L Carbon Dioxide (21-32) mmol/L Anion Gap (3-11) BUN (6-23) mg/dl Creatinine (0.6-1.2) mg/dl Est Cr Clr Drug Dosing ml/min Est GFR ( Amer) ml/min Est GFR (Non-Af Amer) ml/min BUN/Creatinine Ratio (10-20) Glucose (70-99(Fasting)) mg/dl POC Glucose 170 H (70-99) mg/dl Calcium (8.5-10.1) mg/dl Total Bilirubin (0.2-1.0) mg/dl AST (13-39) U/L ALT (7-52) U/L Alkaline Phosphatase (34-104) U/L Total Protein (6.0-8.3) gm/dl Albumin (3.4-5.0) gm/dl Globulin (2.5-4.0) gm/dl Albumin/Globulin Ratio (0.9-2) Urine Color Urine Appearance (Clear) Urine pH (4.5-7.5) Ur Specific [place] (1.000-1.030) Urine Protein (Negative) Urine Glucose (UA) (Negative) Urine Ketones (Negative) Urine Blood (Negative) Urine Nitrite (Negative) Urine Bilirubin (Negative) Urine Urobilinogen (Negative) Ur Leukocyte Esterase (Negative) Urine WBC (Auto) (0-5) /hpf Urine RBC (Auto) (0-4) /hpf U Hyaline Cast (Auto) (0-5) /lpf U Epithel Cells (Auto) (0-5) /lpf Urine Bacteria (Auto) (Negative) Calcium Oxalate Crystal (None Prsent) Urine Yeast (None Prsent) Medications Administered Current Inpatient Medications Acetaminophen (Acetaminophen 500 Mg Tab) 1,000 mg PO Q12H [facility] Stop: 04/02/22 18:59 Last Admin: 03/04/22 06:10 Dose: Not Given Documented by: Albuterol (Albuterol 0.083% Nebu Soln 3 Ml Vial) 2.5 mg INH Q6H PRN; Protocol PRN Reason: shortness of breath or wheezing Stop: 04/01/22 21:19 Aspirin (Aspirin 81 Mg Ectab) 81 mg PO DAILY [facility] Stop: 04/02/22 08:59 Last Admin: 03/04/22 11:46 Dose: Not Given Documented by: Carvedilol (Carvedilol 12.5 Mg Tab) 12.5 mg PO BID [facility] Stop: 04/01/22 21:19 Last Admin: 03/04/22 11:46 Dose: Not Given Documented by: Clopidogrel Bisulfate (Clopidogrel Bisulfate 75 Mg Tab) 75 mg PO DAILY [facility] Stop: 04/02/22 08:59 Last Admin: 03/04/22 11:46 Dose: Not Given Documented by: Cyanocobalamin (Cyanocobalamin (B-12) 100 Mcg Tablet) 100 mcg PO DAILY [facility] Stop: 04/02/22 08:59 Last Admin: 03/04/22 11:46 Dose: Not Given Documented by: Dextrose (Dextrose 50% 50 Ml Syringe) 25 - 50 ml IV UD PRN; Protocol PRN Reason: Hypoglycemia Protocol Stop: 04/01/22 21:19 Dextrose (Dextrose 50% 50 Ml Syringe) 25 - 50 ml IV UD PRN; Protocol PRN Reason: Hypoglycemia Protocol Stop: 04/01/22 21:44 Diclofenac Sodium (Diclofenac Sod 1% Gel 100 Gm Tube) 4 gm EXT QID [facility]; Protocol Stop: 04/01/22 21:19 Last Admin: 03/04/22 11:47 Dose: Not Given Documented by: Furosemide (Furosemide 40 Mg/4 Ml Vial) 40 mg IV DAILY [facility] Stop: 04/02/22 08:59 Last Admin: 03/04/22 11:47 Dose: Not Given Documented by: Gabapentin (Gabapentin 100 Mg Cap) 100 mg PO BID [facility] Stop: 04/01/22 21:19 Last Admin: 03/04/22 11:47 Dose: Not Given Documented by: Glucagon (Glucagon For Inj 1 Mg Vial) 1 mg SQ UD PRN; Protocol PRN Reason: Hypoglycemia Protocol Stop: 04/01/22 21:19 Glucagon (Glucagon For Inj 1 Mg Vial) 1 mg IM UD PRN; Protocol PRN Reason: Hypoglycemia Protocol Stop: 04/01/22 21:44 Glucose (Glucose 10 Tabs/Tube) 4 - 8 tabs PO UD PRN; Protocol PRN Reason: Hypoglycemia Protocol Stop: 04/01/22 21:19 Glucose (Glucose 40% Gel 15 Gm Tube) 15 - 30 gm PO UD PRN; Protocol PRN Reason: Hypoglycemia Protocol Stop: 04/01/22 21:19 Glucose (Glucose 40% Gel 15 Gm Tube) 15 - 30 gm PO UD PRN; Protocol PRN Reason: Hypoglycemia Protocol Stop: 04/01/22 21:44 Glucose (Glucose 10 Tabs/Tube) 4 - 8 tabs PO UD PRN; Protocol PRN Reason: Hypoglycemia Protocol Stop: 04/01/22 21:44 Heparin Sodium (Porcine) (Heparin Sod 5,000 Unit/0.5 Ml Vial) 5,000 units SQ Q8 [facility] Stop: 04/01/22 21:59 Last Admin: 03/03/22 13:08 Dose: 5,000 units Documented by: Hydromorphone HCl (Hydromorphone Inj 0.5 Mg/0.5 Ml Syr) 0.5 mg IV Q4H PRN PRN Reason: Pain Stop: 03/17/22 23:27 Last Admin: 03/03/22 23:44 Dose: 0.5 mg Documented by: Daptomycin 450 mg/ Syringe 9 mls @ 4.5 mls/min IV Q48H [facility]; Protocol Stop: 03/10/22 18:59 Last Admin: 03/03/22 20:20 Dose: 4.5 mls/min Documented by: Piperacillin Sod/Tazobactam (Sod 4.5 gm/ Dextrose) 120 mls @ 30 mls/hr IV Q8H [facility]; Protocol Stop: 03/11/22 00:59 Last Admin: 03/04/22 09:13 Dose: 30 mls/hr Documented by: Insulin Aspart (Insulin Aspart Per Unit) 0 units SC ACHS [facility] Stop: 04/01/22 21:19 Last Admin: 03/04/22 11:55 Dose: 1 units Documented by: Insulin Glargine (Lantus Per Unit Charge) 0 units SQ BID [facility] Stop: 04/01/22 21:19 Last Admin: 03/04/22 11:55 Dose: 25 units Documented by: Loratadine (Loratadine 10 Mg Tab) 10 mg PO DAILY [facility] Stop: 04/02/22 08:59 Last Admin: 03/04/22 11:47 Dose: Not Given Documented by: Magnesium Oxide (Magnesium Oxide 400 Mg Tab) 200 mg PO DAILY [facility] Stop: 04/02/22 08:59 Last Admin: 03/04/22 11:47 Dose: Not Given Documented by: Miscellaneous (Budesonide Aq: Order Awaiting Action) 1 ea N/A QS [facility] Stop: 04/02/22 07:59 Last Admin: 03/04/22 08:53 Dose: Not Given Documented by: Miscellaneous (Carbohydrates For Hypoglycemia ) 15 - 30 gm PO UD PRN PRN Reason: Hypoglycemia Protocol Stop: 04/01/22 21:19 Miscellaneous (Carbohydrates For Hypoglycemia ) 15 - 30 gm PO UD PRN PRN Reason: Hypoglycemia Treatment Stop: 04/01/22 21:44 Montelukast Sodium (Montelukast Sodium 10 Mg Tablet) 10 mg PO DAILY [facility] Stop: 04/02/22 08:59 Last Admin: 03/04/22 11:47 Dose: Not Given Documented by: Morphine Sulfate (Morphine Sulfate Cr 15 Mg Tabcr) 15 mg PO BID [facility] Stop: 03/16/22 21:19 Last Admin: 03/04/22 11:47 Dose: Not Given Documented by: Multivitamins/Minerals (Cerovite Adv Formula Tab) 1 tab PO DAILY [facility] Stop: 04/02/22 08:59 Last Admin: 03/04/22 11:48 Dose: Not Given Documented by: Ondansetron HCl (Ondansetron Inj 2 Mg/Ml 2 Ml Vial) 4 mg IV Q6H PRN PRN Reason: Nausea Stop: 04/01/22 21:19 Oxycodone HCl (Oxycodone Hcl Ir 5 Mg Tab (Immediate Release)) 5 mg PO Q4H PRN PRN Reason: Pain Stop: 03/17/22 23:29 Polyethylene Glycol (Polyethylene (Miralax) 17 Gm Pack) 17 gm PO DAILY PRN PRN Reason: Constipation Stop: 04/01/22 21:19 Saccharomyces Boulardii (Saccharomyces Boulardii 250 Mg Cap) 250 mg PO BID [facility] Stop: 04/01/22 21:19 Last Admin: 03/04/22 11:48 Dose: Not Given Documented by: (1) Fall Encounter type: initial encounter Qualified Code(s): W19.XXXA - Unspecified fall, initial encounter
--- NOTE | 2022-03-04 12:10 | Nephrology Progress Note ---
Date of Service March 04, 2022 Assessment & Plan (1) Acute kidney injury superimposed on chronic kidney disease: Plan: Home on CKD -Ischemic ATN -Clinically difficult to assess her volume status because of her body habitus, but chest x-ray suggestive of CHF and she was give 40 mg of lasix,sCR peaked at 2.47 , omproved to 2.33 now. -continue on Iv lasix, can consider to convert to oral tmr. -Daily weights preferably on the same scale -Continue to hold losartan at the moment -Input and output (2) Cellulitis of right leg: Plan: As per primary (3) Fall: (4) Diabetes mellitus, type II: Admission and Anticipated Discharge Date Admission Date: March 02, 2022 Subjective Sen cifuentes HOME , Diabetic foot ulcers.acute kidney injury, etc. Sleepy but arousable, appears confused intermittently Review of Systems Review of Systems: Morbidly obese. intermittent confusion. No shortness of breath Stable chronic bilateral pedal edema. Physical Exam Physical Exam: General Appearance:Morbidly Obese, no apparent distress Head: normocephalic, +traumatic: Occipital scalp laceration Eyes: normal inspection, EOMI Neck: supple, Trachea midline Respiratory/Chest: Normal breath sounds, CTA, No accessory muscle use Cardiovascular: S1, S2, No murmur Abdomen/GI:Soft, Non tender, Bowel sounds present Extremities/Musculoskeletal:normal inspection, B/L LE 2+ edema, ulcers on right foot with mild erythema of right lower extremity Results & Data ([facility]) Vital Signs (Past 12 Hours) Vital Signs Temp Pulse Pulse Resp BP BP Pulse Ox 03/04/22 11:13 36.6 C 89 18 101/63 98 03/04/22 07:40 36.5 C 89 18 96/62 L 100 03/04/22 04:03 88 102/65 100 03/04/22 02:55 36.7 C 85 22 88/51 L 93 03/04/22 01:43 84 Laboratory Results 03/04/22 07:47 03/04/22 07:47 (1) Fall Encounter type: initial encounter Qualified Code(s): W19.XXXA - Unspecified fall, initial encounter
[2022-03-04 12:43] LABS: Base Excess ABG 5.3 mEq/L (-9-1.8); HCO3 ABG 33 mmol/L (19-24); Oxygen Saturation ABG 99.3 % (90-95); PCO2 ABG 63 mmHg (35-46); PO2 ABG 120 mmHg (80-95); pH ABG 7.33 (7.35-7.45)
[2022-03-04 12:53] LABS: Allen Test Pos (Pos)
[2022-03-04] MEDS: HEPARIN SOD 5,000 UNIT/0.5 ML VIAL SQ SCH ×2 (13:47→22:17)
[2022-03-04] MEDS: ACETAMINOPHEN 1,000 MG/100 ML VIAL IV SCH ×2 (14:39→22:22)
--- NOTE | 2022-03-04 15:03 | Consultation ---
Date of Consultation March 04, 2022 History of Present Illness Attending Physician: Guido Laura MD History of Present Illness PT BEING TRANSFERRED TO TERTIARY FACILITY. NO CONSULT PERFORMED. Allergies Allergy/AdvReac Type Severity Reaction Status Date / Time fluticasone Allergy Severe WATER ON Verified 03/02/22 17:13 LUNGS salmeterol Allergy Severe WATER ON Verified 03/02/22 17:13 LUNGS propoxyphene Allergy Mild FROM Verified 03/02/22 17:13 DARVOCET benzocaine Allergy Unknown Unknown Verified 03/02/22 17:13 mold Allergy Unknown Unknown Verified 03/02/22 17:13 acetaminophen [From Vicodin] AdvReac Intermediate hallucinati Verified 03/02/22 17:13 ons hydrocodone [From Vicodin] AdvReac Intermediate hallucinati Verified 03/02/22 17:13 ons oxycodone AdvReac Intermediate Hallucinati Verified 03/02/22 17:13 ng prednisone AdvReac Intermediate HYPERGLYCEM Verified 03/02/22 17:13 IA Home Medications Medication Instructions Recorded Confirmed Type aspirin 81 mg tablet,delayed 81 mg PO DAILY 10/01/19 03/02/22 History release carvedilol 12.5 mg tablet 12.5 mg PO BID 10/01/19 03/02/22 History clopidogrel 75 mg tablet 75 mg PO DAILY 10/01/19 03/02/22 History cyanocobalamin (vitamin B-12) 100 100 mcg PO DAILY 10/01/19 03/02/22 History mcg tablet loratadine 10 mg tablet 10 mg PO DAILY 10/01/19 03/02/22 History montelukast 10 mg tablet 10 mg PO DAILY 10/01/19 03/02/22 History multivitamin with minerals 1 tab PO DAILY 10/01/19 03/02/22 History (Multiple Vitamin-Minerals) budesonide 32 mcg/actuation nasal 2 spray INTRANASAL DAILY 09/22/21 03/02/22 History spray diclofenac sodium 1 % topical gel 4 g TOPICAL QID 09/22/21 03/02/22 History dulaglutide 3 mg/0.5 mL 3 mg SUBCUT WK 09/22/21 03/02/22 History subcutaneous pen injector (Trulicity) furosemide 40 mg tablet 40 mg PO QAM 09/22/21 03/02/22 History insulin aspart U-100 100 unit/mL 10 unit SUBCUT TID 09/22/21 03/02/22 History (3 mL) subcutaneous pen (Novolog Flexpen U-100 Insulin aspart) rosuvastatin 40 mg tablet 40 mg PO DAILY 09/22/21 03/02/22 History acetaminophen 325 mg tablet 650 mg PO TID PRN #180 tab 10/21/21 03/02/22 Rx gabapentin 100 mg capsule 100 mg PO BID #60 cap 10/21/21 03/02/22 Rx insulin glargine 100 unit/mL (3 50 unit SUBCUT BID #0 ml 10/21/21 03/02/22 Rx mL) subcutaneous pen (Lantus Solostar U-100 Insulin) albuterol sulfate 2.5 mg INHALATION Q6H PRN #75 ml 02/20/22 03/02/22 Rx losartan 100 mg tablet 100 mg PO DAILY 02/20/22 03/02/22 History magnesium 100 mg tablet 100 mg PO DAILY 02/20/22 03/02/22 History potassium gluconate 550 mg (90 mg) 550 mg PO DAILY 02/20/22 03/02/22 History tablet Saccharomyces boulardii 250 mg 250 mg PO BID 03/02/22 03/02/22 History capsule clindamycin HCl 300 mg capsule 300 mg PO QID 03/02/22 03/02/22 History morphine 15 mg tablet,extended 15 mg PO BID PRN 03/02/22 03/02/22 History release tramadol 50 mg tablet 50 mg PO Q8 PRN 03/02/22 03/02/22 History Patient History Medical History (Updated 03/03/22 @ 13:46 by Jill Chavez MD) Asthma CKD (chronic kidney disease), stage III Combined congestive systolic and diastolic heart failure Complete heart block (06/14/14) Diabetes mellitus, type II Diabetes mellitus, type II, insulin dependent Dyslipidemia Excessive daytime sleepiness Granulomatous interstitial lung disease HTN (hypertension) Morbid obesity due to excess calories Nonischemic cardiomyopathy Pacemaker Physical deconditioning PVD (peripheral vascular disease) Sleep apnea Surgical History H/O tubal ligation History of cardiac cath 2014 - normal coronary arteries; [place] [facility] [place] of carpal tunnel release History of cataract removal with insertion of prosthetic lens History of revascularization procedure of lower extremity fem/pop artery revascularization RLE; 09/2017; Dr Gill [place] [facility] [place] History of total knee arthroplasty 2005; bilateral Family History Mother Leukemia Son Asthma Brother Stroke Social History Smoking Status: Never smoker Second Hand Exposure: No; Hx Alcohol Use: No Hx Substance Use: No Preferred Language: Greek Communication Ability: Effective 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) Vital Signs (Past 12 Hours) Vital Signs Temp Pulse Pulse Resp BP BP Pulse Ox 03/04/22 14:25 79 19 99 03/04/22 11:13 36.6 C 89 18 101/63 98 03/04/22 07:40 36.5 C 89 18 96/62 L 100 03/04/22 04:03 88 102/65 100
[2022-03-04] MEDS: ALBUMIN 25% 100 mL 25 GM/100 ML VIAL IV SCH (16:31)
--- NOTE | 2022-03-04 18:32 | CT Scan Report ---
CT SCAN OF THE BRAIN WITHOUT IV CONTRAST CLINICAL HISTORY: Encephalopathy. Recent fall. COMPARISON STUDY: CT of the brain dated 03/03/2022. TECHNIQUE: Unenhanced axial CT scan of the brain is performed from the vertex to the skull base. A do se lowering technique was utilized adhering to the principles of ALARA. The Examination is significan tly degraded by motion artifact. The patient was scanned 3 times in an effort to improve image qualit y. CT DOSE: 2652.25 mGy.cm FINDINGS: Brain parenchyma: There is age-related involutional change noting mild subcortical and periventricula r microangiopathic disease. There is no hemorrhage, mass effect, or evidence of acute territorial isc hemia by CT criteria. Louis-white matter differentiation is preserved. No extra-axial fluid collection is seen. Ventricles, sulci, cisterns: Prominent secondary to involutional change. Intracranial vasculature: There is atherosclerotic calcification of the cavernous carotid and vertebr al arteries. Calvarium: The skeletal structures are osteopenic. No depressed calvarial fracture is identified. Soft tissues: Contusion and skin clips are noted in the right occipital scalp. Sinuses and mastoids: There is trace mucosal thickening left maxillary antrum. The remaining paranasa l sinuses are clear. The mastoid air cells are well pneumatized. Orbits: The bony orbits are grossly intact. There are bilateral ocular lens implants. IMPRESSION: There is no evidence of hemorrhage, mass effect, or acute territorial ischemia by CT hosseint go noting a significantly motion compromised examination. ACT 112: Negative or not required by law. Electronically signed by: Celestino Guerrero M.D. 03/04/2022 6:30 PM
[2022-03-04] MEDS ORDERED: HYDROmorphone INJ 0.5 MG/0.5 ML SYR IV STA (19:13)
--- NOTE | 2022-03-04 22:09 | Critical Care Consultation ---
Date of Consultation March 04, 2022 Assessment & Plan (1) Altered mental status: Reason Critically Ill: 76-year-old female with altered mental status which is progressed throughout hospitalization with hospitalist requesting evaluation for possible need for airway management. NEURO - * CAM ICU: POSITIVE * Altered mental status: * Apparently, per conversations with nursing staff and hospitalist, the patient's mental status was at her baseline upon arrival in this institution on 03/02. Apparently, sometime during hospitalization, her mental status had changed and she became agitated and was apparently yelling in pain as well as extremely confused and unable to answer questions. She had been moved from the medical floor to telemetry status today as they were concerned that she was becoming noncompliant with her BiPAP which could be contributing to her mental status as well. As she has had change in mental status and recent head injury, 2 separate CT scans have been obtained which have both been negative. Hospitalist asked for evaluation as there was initial concern that she was increasingly obtunded. * Upon my assessment at bedside, the patient is resting comfortably with 2 L nasal cannula saturating well into the 90s. Apparently, the patient wears between 3 to 5 L at home on a regular basis. Patient opens her eyes and attempts to track the provider across the room with voice alone. Patient unable to answer specific questions including location, year, birthday, or name. She appears to perseverate and when she answers her question initially, she continues to provide that answer (i.e. she continues to answer "yes" to questions requiring specific answers). While she is not obtunded, she certainly does appear somewhat somnolent. She does have occasional rhythmic jerking of the proximal upper extremities bilaterally. While the patient does not appear to have any focal cranial nerve abnormalities, I am concerned as she does appear to have a clenched LEFT upper extremity as described in her physical exam. She does not appear to use his upper extremity, however she does have some range of motion when forced. On review of the patient's labs, there has not been a significant change in her renal function compared to her baseline. While she has been getting narcotics, the patient is chronically on narcotics at home and her doses have not seem to be elevated that significantly. Additionally, she is not obtunded or with significant hypoventilation at this point that I would be concerned about significant narcotic use. My genuine concern is the patient could be experiencing some underlying neurologic abnormality that may not be evaluated on simple noncontrast CT of the head alone. Unfortunately, CTA of the head/brain is unable to be achieved secondary to the patient's renal function. Additionally, the patient has a pacemaker and it is uncertain if she will tolerate MRI at this point. Given the complex presentation and my concerns for possible underlying neurologic abnormality, I did reach out to on-call [facility] neurologist for further recommendation and expertise. * Dr. Gardiner was kind enough to return my page and discuss patient at great length. She does agree that ideally, an MRI for assessment of possible CVA should be obtained if able given her questionable focal findings of the LEFT upper extremity. Additionally, she does recommend EEG for evaluation of possible nonconvulsive status. It was also discussed, that given the likely difficulty obtaining each of those studies at this institution at this time, and as the patient is already excepted to [facility], it may be best to reach out to [facility] to possibly expedite transfer, given the change in status and likely need for neurologic evaluation as well. Dr. Ramos also recommends obtaining ammonia level to evaluate for possible other reasons for encephalopathy. Additionally, she recommends discontinuing tramadol for the risk of lowering seizure threshold. She recommends we wean down patient's narcotic regime if able as well. She recommends against the use of Narcan in this patient as this can certainly alter patient's mental status further and possibly worsen a questionable underlying seizure activity. * At this point, the patient is not hypotensive. She is not tachycardic. She is maintaining her airway. She is confused, but otherwise she is hemodynamically and stable from a respiratory status. While I do not feel as though the patient warrants an additional transfer to the ICU, I did feel it necessary that the patient be discussed with neurology for possible further recommendations. All of this information was relayed to nocturnal hospitalist. At this point, we will cover peripherally as the patient does not require ICU level care at this point. Certainly, if the patient were to deteriorate and require further intervention, we are aware and capable of managing the patient. Ideally, I agree that given the patient's need for evaluation from vascular surgery as well as need for MRI and EEG, she likely warrants emergent transfer to tertiary care center. Thank you for allowing us to participate in the care of this patient. Please refer to my attending physician's documentation for any further recommendations. (2) Acute kidney injury superimposed on chronic kidney disease: (3) Cellulitis of right leg: (4) Diabetes mellitus, type II: (5) Obesity hypoventilation syndrome: Supervising Physician Co-Signing Physician Notes Discussed with critical care CHRISTIAN overnight. Agree with his documentation and assessment. Focal neurological deficits noted in this patient are unlikely to be related to CO2 narcosis. Recommendations are as noted above. Formal neurology consultation, MRI of the brain, EEG. It appears the patient is already been accepted in transfer for vascular surgery evaluation in [place] and would recommend expediting her transfer. No indication for ICU level care or intubation at this point time. Critical care signing off. History of Present Illness Attending Physician: Guido Laura MD History of Present Illness Patient is a 76-year-old female with a significant past medical history of complete heart block status post pacemaker placement, asthma, morbid obesity, insulin-dependent diabetes, hyperlipidemia, hypertension, nonischemic cardiomyopathy, CKD 3, peripheral vascular disease, obesity hypoventilation syndrome, combined congestive systolic and diastolic heart failure. Patient was admitted to this institution on 03/02 after a mechanical fall. During initial evaluation, patient had a negative CT of the head. Patient was noted to have cellulitis of the RIGHT lower extremity as well as concerns for osteomyelitis of the great toe. Patient had been covered appropriately with broad-spectrum antibiotics. During evaluation, the patient had arterial duplex performed which demonstrated poor flow with extensive atherosclerotic calcifications of the RIGHT lower extremity. As there is no vascular surgery available at this institution, arrangements have been made for transfer to [facility], however there is been difficulty with bed placement. Throughout the course of her hospitalization, the patient has been increasingly confused. Per conversation with attending hospitalist, the patient had apparently been agitated and complaining of pain over the last several hours to few days. Initially, there was concern for CO2 narcosis. The patient was placed on BiPAP however she did not tolerate this very well. Her blood gases demonstrated a slight degree of CO2 retention. Repeat CT of the patient's head x2 (for a total of 3) demonstrated no acute abnormalities. Concern was for possible need for airway protection and worsening mental status which prompted ICU consultation. Upon my evaluation at bedside in room 210, the patient awakens to voice. She is resting comfortably in the bed and does not appear agitated at this point. She seems to perseverate and answers most questions with "yes." She can follow some simple commands. Otherwise, she is unable to contribute to HPI. Allergies Allergy/AdvReac Type Severity Reaction Status Date / Time fluticasone Allergy Severe WATER ON Verified 03/02/22 17:13 LUNGS salmeterol Allergy Severe WATER ON Verified 03/02/22 17:13 LUNGS propoxyphene Allergy Mild FROM Verified 03/02/22 17:13 DARVOCET benzocaine Allergy Unknown Unknown Verified 03/02/22 17:13 mold Allergy Unknown Unknown Verified 03/02/22 17:13 acetaminophen [From Vicodin] AdvReac Intermediate hallucinati Verified 03/02/22 17:13 ons hydrocodone [From Vicodin] AdvReac Intermediate hallucinati Verified 03/02/22 17:13 ons oxycodone AdvReac Intermediate Hallucinati Verified 03/02/22 17:13 ng prednisone AdvReac Intermediate HYPERGLYCEM Verified 03/02/22 17:13 IA Home Medications Medication Instructions Recorded Confirmed Type aspirin 81 mg tablet,delayed 81 mg PO DAILY 10/01/19 03/02/22 History release carvedilol 12.5 mg tablet 12.5 mg PO BID 10/01/19 03/02/22 History clopidogrel 75 mg tablet 75 mg PO DAILY 10/01/19 03/02/22 History cyanocobalamin (vitamin B-12) 100 100 mcg PO DAILY 10/01/19 03/02/22 History mcg tablet loratadine 10 mg tablet 10 mg PO DAILY 10/01/19 03/02/22 History montelukast 10 mg tablet 10 mg PO DAILY 10/01/19 03/02/22 History multivitamin with minerals 1 tab PO DAILY 10/01/19 03/02/22 History (Multiple Vitamin-Minerals) budesonide 32 mcg/actuation nasal 2 spray INTRANASAL DAILY 09/22/21 03/02/22 History spray diclofenac sodium 1 % topical gel 4 g TOPICAL QID 09/22/21 03/02/22 History dulaglutide 3 mg/0.5 mL 3 mg SUBCUT WK 09/22/21 03/02/22 History subcutaneous pen injector (Trulicity) furosemide 40 mg tablet 40 mg PO QAM 09/22/21 03/02/22 History insulin aspart U-100 100 unit/mL 10 unit SUBCUT TID 09/22/21 03/02/22 History (3 mL) subcutaneous pen (Novolog Flexpen U-100 Insulin aspart) rosuvastatin 40 mg tablet 40 mg PO DAILY 09/22/21 03/02/22 History acetaminophen 325 mg tablet 650 mg PO TID PRN #180 tab 10/21/21 03/02/22 Rx gabapentin 100 mg capsule 100 mg PO BID #60 cap 10/21/21 03/02/22 Rx insulin glargine 100 unit/mL (3 50 unit SUBCUT BID #0 ml 10/21/21 03/02/22 Rx mL) subcutaneous pen (Lantus Solostar U-100 Insulin) albuterol sulfate 2.5 mg INHALATION Q6H PRN #75 ml 02/20/22 03/02/22 Rx losartan 100 mg tablet 100 mg PO DAILY 02/20/22 03/02/22 History magnesium 100 mg tablet 100 mg PO DAILY 02/20/22 03/02/22 History potassium gluconate 550 mg (90 mg) 550 mg PO DAILY 02/20/22 03/02/22 History tablet Saccharomyces boulardii 250 mg 250 mg PO BID 03/02/22 03/02/22 History capsule clindamycin HCl 300 mg capsule 300 mg PO QID 03/02/22 03/02/22 History morphine 15 mg tablet,extended 15 mg PO BID PRN 03/02/22 03/02/22 History release tramadol 50 mg tablet 50 mg PO Q8 PRN 03/02/22 03/02/22 History Patient History Medical History Asthma CKD (chronic kidney disease), stage III Combined congestive systolic and diastolic heart failure Complete heart block (06/14/14) Diabetes mellitus, type II Diabetes mellitus, type II, insulin dependent Dyslipidemia Excessive daytime sleepiness Granulomatous interstitial lung disease HTN (hypertension) Morbid obesity due to excess calories Nonischemic cardiomyopathy Pacemaker Physical deconditioning PVD (peripheral vascular disease) Sleep apnea Surgical History H/O tubal ligation History of cardiac cath 2014 - normal coronary arteries; Dr Jorgensen at [facility] [place] History of carpal tunnel release History of cataract removal with insertion of prosthetic lens History of revascularization procedure of lower extremity fem/pop artery revascularization RLE; 09/2017; Dr Gill at [facility] [place] History of total knee arthroplasty 2006; bilateral Family History Mother Leukemia Son Asthma Brother Stroke Social History Smoking Status: Never smoker Second Hand Exposure: No; Hx Alcohol Use: No Hx Substance Use: No Preferred Language: Uzbek Communication Ability: Effective Crm Marketing Specialist Required: No Beliefs That Will Affect Care: None marital status: Current Living Situation: Spouse Other Information That Helps Us Care for You: No Feels Safe at Home: Yes Safety Concerns: Feels Safe At This Time Assistive Devices: Cane, Oxygen - at Night, Walker and Wheelchair Review of Systems Review of Systems: Unobtainable due to cognitive status Physical Exam Physical Exam: VITAL SIGNS - Vital signs and nursing notes were reviewed. GENERAL - 76-year-old female appearing her stated age who is in no acute distress. Somnolent, but responds to voice and attempts to answer questions. HEAD - Normocephalic. Remy in place to the back of the head. No Omalley's Sign or Raccoon's Eyes. EYES - PERRL with EOMI bilaterally. Sclera anicteric. Palpebral conjunctiva pink and moist with no injection noted. EARS - No deformities of external structures noted on gross examination bilaterally. NOSE - Midline and without cyanosis. No epistaxis or purulent drainage noted. Septum midline without deviation or septal hematoma noted. MOUTH/OROPHARYNX - Without perioral cyanosis. Buccal mucosa pink and moist. NECK - Neck with FROM. Supple to palpation. No nuchal rigidity. LUNGS - Chest wall symmetric without accessory muscle use, intercostals retractions, or central cyanosis. Diminished breath sounds bilaterally. CARDIAC - RRR with S1/S2. No murmur, rubs, or gallops appreciated. ABDOMEN - Abdominal contour obese without pulsations or visible masses. BS normoactive all four quadrants. No tenderness noted on exam. EXTREMITIES - Slight pretibial edema present bilaterally. Radial pulses equal bilaterally. DP pulses unable to be palpated bilaterally. Wound noted the RIGHT foot and great toe with surrounding cellulitis. Patient with FROM of the RIGHT upper extremity. Seems to neglect use of the LEFT upper extremity. She also appears to clench the LEFT hand, holding her thumb under her fingers. The hand feels rigid on passive ROM, however, she does have similar manager assurance strength bilaterally. She has limited ROM of the RIGHT lower extremity secondary to complaints of pain. She seems unwilling to move her LEFT lower extremity fully as well. She is able to wiggle her toes bilaterally on command. She appears to withdraw to painful stimuli. NEUROLOGIC - Exam is difficult to assess secondary to patient's mental status. She opens her eyes when her name is called. She then attempts to track provider through the room when conversing. She answers questions with "yes", but this appears to be more of the patient perseverating as this is not the appropriate response to most of the questions asked. She was able to provide her name at one point, but again repeated this when asked further qualifying questions.She does appear to have occasional rhythmic jerking of the proximal upper extremities bilaterally. She will occasionally wave at provider with her RIGHT hand while keeping the LEFT hand clenched in a near fist. This is the extent of exam given patient's current mental status. Results & Data Results & Data ([facility]) Vital Signs (Past 12 Hours) Vital Signs Temp Pulse Pulse Resp BP BP Pulse Ox 03/04/22 19:58 36.8 C 84 28 H 92/80 L 100 03/04/22 19:54 86 22 99 03/04/22 19:22 79 03/04/22 17:21 135/55 L 03/04/22 16:06 88/49 L 03/04/22 15:36 71 21 98 03/04/22 15:09 92/51 L 03/04/22 14:25 79 19 99 03/04/22 11:13 36.6 C 89 18 101/63 98 Coding Level of Care Code 16680 Inpt Consult Level 5 Diagnoses Altered mental status R41.82 Acute kidney injury superimposed on chronic kidney disease N17.9; N18.9 Cellulitis of right leg L03.115 Diabetes mellitus, type II E11.9 Obesity hypoventilation syndrome E66.2 Time Spent (min) 45
[2022-03-04 22:56] LABS: iSTAT Allen Test Pass; iSTAT Art Bld Gas pCO2 Correct 60 mmHg (35-46); iSTAT Art Bld Gas pH Corrected 7.337 (7.35-7.45); iSTAT Arterial Blood Gas HCO3 32 meg/L (19-24); iSTAT Arterial Blood Gas pCO2 61 mmHg (35-46); iSTAT Arterial Blood Gas pH 7.34 (7.35-7.45); iSTAT Arterial Blood Gas pO2 131 mmHg (80-95); iSTAT Arterial Blood Gas pO2 C 130; iSTAT Carbon Dioxide 34 mmol/L (24-31); iSTAT Hematocrit 27 % (37-47); iSTAT Hemoglobin 9.2 g/dl (12.0-16.0); iSTAT Potassium 4.6 mmol/L (3.3-5.0); iSTAT Site L Radial; iSTAT Sodium 135 mmol/L (135-144)
[2022-03-04] MEDS ORDERED: NALOXONE HCL 0.4 MG/1 ML VIAL/CARP IV STA ×2 (23:06→23:15)
--- NOTE | 2022-03-04 23:07 | Communication Note ---
Moving date of Service: March 04, 2022 Patient evaluated for encephalopathy. PPE : Morbidly obese, nonverbal Pinpoint pupils Episodic hand twitching POC ABG pH 7.34, PCO2 61 AP Encephalopathy Multifactorial: Opioid toxicity, possible myoclonic jerks rule out seizure disorder Hypercapnic respiratory failurem hx OHS RTC neuropsychotropic medications possibly contributory Narcan trial Hold RTC MS Contin and gabapentin until mentation back to baseline BiPAP trial Recheck ABG EEG in a.m. if without improvement in neurologic status. ADDENDUM : After first dose of Narcan, patient able to transiently respond verbally to voice although incoherent. After second dose of Narcan, patient started exhibiting purposeless bilateral arm motion (grabbing at things). Still incoherent.
[2022-03-04] MEDS ORDERED: NALOXONE HCL 0.4 MG/1 ML VIAL/CARP ONE ×2 (23:08→23:16)
[2022-03-04] MEDS ORDERED: ALBUMIN 25% 100 mL 25 GM/100 ML VIAL IV ONE (23:16)
[2022-03-04] MEDS ORDERED: PROMETHAZINE HCL 12.5 MG in SODIUM CHLORIDE 0.9% 50 ML IV STA (23:21)
[2022-03-04 23:24] LABS: BUN Creatinine Ratio 15.7 (10-20); Calcium 8.9 mg/dl (8.5-10.1); Creatinine Clr Calc Pharmacy 27.2 ml/min; Est GFR (African American) 25.8 ml/min; Est GFR (Non-African American) 22.3 ml/min; Magnesium 2.2 mg/dl (1.7-2.4); Phosphorus 4.3 mg/dl (2.5-4.9); Potassium 4.7 mmol/L (3.5-5.1)
[2022-03-04] MEDS ORDERED: OLANZapine 10 MG/2.1 ML SDV IM PRN (23:42)
[2022-03-05] MEDS: ALBUMIN 25% 100 mL 25 GM/100 ML VIAL IV SCH ×4 (00:11→23:59)
[2022-03-05 01:20] LABS: Base Excess ABG 4.6 mEq/L (-9-1.8); HCO3 ABG 32 mmol/L (19-24); Oxygen Saturation ABG 99.4 % (90-95); PCO2 ABG 56 mmHg (35-46); PO2 ABG 117 mmHg (80-95); pH ABG 7.36 (7.35-7.45)
[2022-03-05 01:21] LABS: Allen Test Pos (Pos)
[2022-03-05] MEDS: PIPERACILLIN/TAZOBACTAM 4.5 GM in DEXTROSE 5% 100 ML IV SCH ×4 (01:49→23:59)
[2022-03-05] MEDS: ACETAMINOPHEN 500 MG TAB PO SCH ×2 (03:33→17:40)
[2022-03-05] MEDS: HEPARIN SOD 5,000 UNIT/0.5 ML VIAL SQ SCH ×2 (05:47→14:10)
[2022-03-05] MEDS: ACETAMINOPHEN 1,000 MG/100 ML VIAL IV SCH ×3 (05:53→21:54)
[2022-03-05 06:36] LABS: Hematocrit (blood only) 29.1 % (34.1-44.9); Hemoglobin 9.1 g/dl (12.0-16.0); Mean Corpuscular Hemoglobin 30.7 pg (25.0-34.0); Mean Corpuscular Hgb Conc 31.3 g/dL (32.0-36.0); Mean Corpuscular Volume 98.3 fL (80.0-100.0); Platelet Count 221 K/uL (130-400); RDW Coefficient of Variation 18.9 % (11.5-14.5); RDW Standard Deviation 68.7 fL (36.4-46.3); Red Blood Count 2.96 M/uL (3.93-5.22); White Blood Count 6.61 K/ul (4.8-10.8)
[2022-03-05 06:59] LABS: BUN Creatinine Ratio 15.8 (10-20); Calcium 8.8 mg/dl (8.5-10.1); Creatinine Clr Calc Pharmacy 28.4 ml/min; Est GFR (African American) 28.1 ml/min; Est GFR (Non-African American) 24.2 ml/min; Magnesium 2.2 mg/dl (1.7-2.4); Phosphorus 4.3 mg/dl (2.5-4.9); Potassium 4.8 mmol/L (3.5-5.1)
--- NOTE | 2022-03-05 08:31 | XRay Report ---
SINGLE VIEW CHEST CLINICAL HISTORY: Dyspnea. FINDINGS: An AP, portable, upright chest radiograph is compared to study dated 03/03/2022. Correlation is made with chest CT dated 11/01/2019. The examination is degraded by portable technique and patient r otation. A 2-lead cardiac pacemaker is unchanged in position. The heart is enlarged. There is pulmon rica vascular congestion with interstitial edema. Small pleural effusions are suspected. Consolidation is seen at the lung bases. No pneumothorax is seen. The skeletal structures are osteopenic. The bony thorax is grossly intact. IMPRESSION: 1. Cardiomegaly and cardiac pacemaker with evidence of congestive failure and pulmonary edema. This i s similar to yesterday. 2. Suspect small pleural effusions. ACT 112: Negative or not required by law. Electronically signed by: Celestino Guerrero M.D. 03/05/2022 8:30 AM
[2022-03-05] MEDS: DICLOFENAC SOD 1% GEL 100 GM TUBE EXT SCH ×4 (08:53→19:50)
[2022-03-05] MEDS: CLOPIDOGREL BISULFATE 75 MG TAB PO SCH (08:53)
[2022-03-05] MEDS: carvediloL 12.5 MG TAB PO SCH ×2 (08:53→19:53)
[2022-03-05] MEDS: INSULIN ASPART PER UNIT SC SCH ×4 (08:53→21:12)
[2022-03-05] MEDS: ASPIRIN 81 MG ECTAB PO SCH (08:53)
[2022-03-05] MEDS: CYANOCOBALAMIN (B-12) 100 MCG TABLET PO SCH (08:53)
[2022-03-05] MEDS: SACCHAROMYCES BOULARDII 250 MG CAP PO SCH ×2 (08:54→19:54)
[2022-03-05] MEDS: MAGNESIUM OXIDE 400 MG TAB PO SCH (08:54)
[2022-03-05] MEDS: MONTELUKAST SODIUM 10 MG TABLET PO SCH (08:54)
[2022-03-05] MEDS: LANTUS PER UNIT CHARGE SQ SCH ×2 (08:54→21:12)
[2022-03-05] MEDS: LORATADINE 10 MG TAB PO SCH (08:54)
[2022-03-05] MEDS: CEROVITE ADV FORMULA TAB PO SCH (08:54)
--- NOTE | 2022-03-05 11:56 | Hospitalist Progress Note ---
Date of Service March 05, 2022 Assessment & Plan (1) Fall: (2) Weakness: (3) Scalp laceration: (4) Cellulitis of right leg: (5) Diabetes mellitus, type II: (6) Combined congestive systolic and diastolic heart failure: (7) CKD (chronic kidney disease), stage III: (8) Complete heart block: (9) Pacemaker: (10) Sleep apnea: Plan: This is a 76yo F with a PMH of uncontrolled DM II, asthma, severe sleep apnea on 3L NC HS, combined systolic and diastolic heart failure, h/o complete heart block s/p pacemaker placement, LBBB, PVD, CKD III, dyslipidemia, morbid obesity and other medical problems as below who presents from home after fall. Fall Generalized weakness Scalp laceration Recently discharged from 5 months in [facility], minimal ambulatory ability at baseline CT head, CT cervical spine and pelvis XR without evidence of acute injury Scalp laceration repaired in ED. No headache on admission Fall precautions, PT/OT evaluation Positive confusion, likely encephalopathy from underlying infection, ELOY on CKD stage III, rule out intracranial bleed Repeat CT head stat - negative Blood cultures, urine cultures IV daptomycin plus Zosyn Management of ELOY per below Transferred to PCU ABG - obtained Given altered mental status,/encephalopathy, not improving, consulted neurology Per neurology, patient may have hospital acquired delirium in the setting of infection/ELOY EEG obtained (03/05/2022) This is an abnormal routine EEG in a patient with altered mentation due to 1. Generalized background slowing suggestive of a nonspecific encephalopathy, 2. Intermittent broad-based frontally predominant triphasic appearing sharp waves are nonspecific although often seen in metabolic encephalopathies (i.e. renal or hepatic). No electrographic seizures are seen. Per neurology, it is recommended that if her mental status does not improve, she should have continuous 24-hour EEG RLE cellulitis Severe peripheral artery disease Possible osteomyelitis Completed course of Augmentin prescribed in ER, then was prescribed 10d course of Clindamycin on 02/[address] Jones (PCP), continue probiotics Venous doppler without evidence of DVT. Arterial Doppler ordered to evaluate for component of PAD IMPRESSION: 1. Nonvisualization of flow to the arteries of the right calf. Extensive atherosclerotic calcification is present. 2. Nonvisualization of flow to the peroneal artery on the left. Again extensive atherosclerotic calcification is present. 3. Increased flow velocity involving the left proximal popliteal artery characteristic of focal stenosis. 4. Monophasic flow throughout both lower extremities related to diffuse atherosclerotic disease. R Foot Xray (03/03/22) IMPRESSION: Apparent erosion of the plantar calcaneal spur. This may reflect acute osteomyelitis and could be correlated with site of wound. Pain control Antibiotics and cultures per above Given above findings, vascular surgery was consulted. Unfortunately Dr. Machuca not available this week in the hospital. Previous provider Discussed with vascular surgery in [place] Dr. Plummer, recommen d transfer to [place] when bed available Continued IV Dapto plus Zosyn while here However patient was not able to be transferred due to bed availability I consulted with another surgeon, Dr. Rivera today (03/05/22) who was not able to see the patient, but able to review her studies - will start IV heparin (I also discussed with neurology if IV heparin would be okay given her fall. She had 3 CT heads obtained, all negative for bleed) DM II December 2021 a1c much improved at 7.9 (from 13) Basal/bolus regimen while in-patient BSG AC HS Combined systolic and diastolic heart failure Slight increase in edema in BLE. Transition to IV Lasix 40mg IV for now / further diuretics per nephro No CP, SOB or weight gain Repeat CXR slightly improved pulm. edema Daily weights, strict intake and output, low sodium diet Acute on chronic CKD Cr 2.3, down from 2.4, due to ATN (baseline ~ 1.7-1/8). Hold losartan for now. Avoid nephrotoxic agents as able. Repeat BMP daily [employer] consulted, appreciate their input Monitor closely while on IV Lasix albumin also given Complete heart block s/p pacemaker placement ISAIAS 3L NC O2 HS DVT Ppx: SQ heparin Code status: FULL PCP: Robert Dispo: Transfer to [facility] when bed available plan of care discussed with patient's at the bedside in detail and at length he is understanding, agreeable, comfortable with the plan of care Admission and Anticipated Discharge Date Admission Date: March 02, 2022 Subjective Follow-up for diabetic foot ulcers, right lower extremity lower leg cellulitis, acute kidney injury, etc. Mental status worsening since being admitted Required ICU evaluation overnight as well Currently resting in bed, on 2 L of oxygen Not in acute respiratory distress She opens her eyes, however she does not answer much At night she would repeat the same answer, which would either be her name, or saying yes Late afternoon yesterday, she would scream from pain, without answering appropriate Moves extremities, no focal neurologic deficits noted ELOY, nephrology following X-ray of foot obtained yesterday, possible acute osteomyelitis Repeat CT head negative Review of Systems Review of Systems: Unobtainable due to cognitive status Physical Exam Physical Exam: General-elderly obese female, in no acute distress, on 2 L of oxygen, confused Head - occipital scalp laceration Eyes- PERRL, EOMI, anicteric ENT- oropharynx clear Neck- supple Lungs- clear to auscultation bilaterally, no rales/wheezes Heart- normal rate, regular rhythm; no murmur Abdomen- normal bowel sounds, obese, nondistended, soft, nontender Extremities- Right lower leg: Positive erythema from mid calf down Warm to touch Poor pulses Positive scabbed wounds over the great big toe, second toe, fourth toe, heel Neuro- able to open her eyes to voice/command, however does not answer appropriately. Moves extremities Skin- warm & dry Results & Data Results & Data ([facility]) Vital Signs (Past 12 Hours) Vital Signs Temp Pulse Pulse Resp BP BP BP 03/05/22 11:42 36.6 C 85 18 115/51 L 03/05/22 08:00 80 03/05/22 04:29 36.4 C L 89 22 98/54 L 03/05/22 02:39 88 19 03/05/22 00:35 36.8 C 91 H 18 127/59 L Pulse Ox 03/05/22 11:42 93 03/05/22 08:00 03/05/22 04:29 100 03/05/22 02:39 96 03/05/22 00:35 97 Laboratory Results 03/05/22 03/05/22 03/05/22 Range/Units 11:17 07:38 06:00 WBC 6.61 (4.8-10.8) K/ul RBC 2.96 L (3.93-5.22) M/uL Hgb 9.1 L (12.0-16.0) g/dl POC Hgb (12.0-16.0) g/dl Hct 29.1 L (34.1-44.9) % POC Hct (37-47) % MCV 98.3 (80.0-100.0) fL MCH 30.7 (25.0-34.0) pg MCHC 31.3 L (32.0-36.0) g/dL RDW Std Deviation 68.7 H (36.4-46.3) fL RDW Coeff of Javier 18.9 H (11.5-14.5) % Plt Count 221 (130-400) K/uL MPV 9.0 L (9.4-12.3) fL Sample Site POC pH (7.35-7.45) POC pCO2 (35-46) mmHg POC pO2 (80-95) mmHg POC HCO3 (19-24) radha/L POC Total CO2 (24-31) mmol/L POC Base Excess (-9-1.8) radha/L ABG pH (7.35-7.45) ABG pH (Temp Correct) (7.35-7.45) ABG pCO2 (35-46) mmHg ABG pCO2 (Temp Corrct (35-46) mmHg ABG pO2 (80-95) mmHg POC ABG pO2 at Pt Temp ABG HCO3 (19-24) mmol/L POC ABG O2 Sat (90-95) % ABG O2 Saturation (90-95) % ABG Base Excess (-9-1.8) mEq/L Jack Test (Pos) Barometric Pressure Oxygen Given O2 Delivery Device POC Sodium (135-144) mmol/L Sodium (136-145) mmol/L POC Potassium (3.3-5.0) mmol/L Potassium (3.5-5.1) mmol/L Chloride (98-107) mmol/L Carbon Dioxide (21-32) mmol/L Anion Gap (3-11) BUN (6-23) mg/dl Creatinine (0.6-1.2) mg/dl Est Cr Clr Drug Dosing ml/min Est GFR ( Amer) ml/min Est GFR (Non-Af Amer) ml/min BUN/Creatinine Ratio (10-20) Glucose (70-99(Fasting)) mg/dl POC Glucose 72 110 H (70-99) mg/dl Calcium (8.5-10.1) mg/dl Phosphorus (2.5-4.9) mg/dl Magnesium (1.7-2.4) mg/dl Ammonia (18-72) umol/L Procalcitonin (0-0.5) ng/ml 03/05/22 03/05/22 03/05/22 Range/Units 06:00 06:00 01:14 WBC (4.8-10.8) K/ul RBC (3.93-5.22) M/uL Hgb (12.0-16.0) g/dl POC Hgb (12.0-16.0) g/dl Hct (34.1-44.9) % POC Hct (37-47) % MCV (80.0-100.0) fL MCH (25.0-34.0) pg MCHC (32.0-36.0) g/dL RDW Std Deviation (36.4-46.3) fL RDW Coeff of Javier (11.5-14.5) % Plt Count (130-400) K/uL MPV (9.4-12.3) fL Sample Site POC pH (7.35-7.45) POC pCO2 (35-46) mmHg POC pO2 (80-95) mmHg POC HCO3 (19-24) radha/L POC Total CO2 (24-31) mmol/L POC Base Excess (-9-1.8) radha/L ABG pH 7.36 (7.35-7.45) ABG pH (Temp Correct) (7.35-7.45) ABG pCO2 56 H (35-46) mmHg ABG pCO2 (Temp Corrct (35-46) mmHg ABG pO2 117 H (80-95) mmHg POC ABG pO2 at Pt Temp ABG HCO3 32 H (19-24) mmol/L POC ABG O2 Sat (90-95) % ABG O2 Saturation 99.4 H (90-95) % ABG Base Excess 4.6 H (-9-1.8) mEq/L Jack Test Pos (Pos) Barometric Pressure Oxygen Given 30% FIO2 O2 Delivery Device POC Sodium (135-144) mmol/L Sodium 135 L (136-145) mmol/L POC Potassium (3.3-5.0) mmol/L Potassium 4.8 (3.5-5.1) mmol/L Chloride 100 (98-107) mmol/L Carbon Dioxide 31 (21-32) mmol/L Anion Gap 4 (3-11) BUN 31 H (6-23) mg/dl Creatinine 1.96 H (0.6-1.2) mg/dl Est Cr Clr Drug Dosing 28.4 ml/min Est GFR ( Amer) 28.1 ml/min Est GFR (Non-Af Amer) 24.2 ml/min BUN/Creatinine Ratio 15.8 (10-20) Glucose 104 H (70-99(Fasting)) mg/dl POC Glucose (70-99) mg/dl Calcium 8.8 (8.5-10.1) mg/dl Phosphorus 4.3 (2.5-4.9) mg/dl Magnesium 2.2 (1.7-2.4) mg/dl Ammonia (18-72) umol/L Procalcitonin 0.08 (0-0.5) ng/ml 03/04/22 03/04/22 03/04/22 Range/Units 22:42 22:41 22:40 WBC (4.8-10.8) K/ul RBC (3.93-5.22) M/uL Hgb (12.0-16.0) g/dl POC Hgb 9.2 L (12.0-16.0) g/dl Hct (34.1-44.9) % POC Hct 27 L (37-47) % MCV (80.0-100.0) fL MCH (25.0-34.0) pg MCHC (32.0-36.0) g/dL RDW Std Deviation (36.4-46.3) fL RDW Coeff of Javier (11.5-14.5) % Plt Count (130-400) K/uL MPV (9.4-12.3) fL Sample Site L Radial POC pH 7.34 L (7.35-7.45) POC pCO2 61 H (35-46) mmHg POC pO2 131 H (80-95) mmHg POC HCO3 32 H (19-24) radha/L POC Total CO2 34 H (24-31) mmol/L POC Base Excess 6.0 H (-9-1.8) radha/L ABG pH (7.35-7.45) ABG pH (Temp Correct) 7.337 L (7.35-7.45) ABG pCO2 (35-46) mmHg ABG pCO2 (Temp Corrct 60 H (35-46) mmHg ABG pO2 (80-95) mmHg POC ABG pO2 at Pt Temp 130 ABG HCO3 (19-24) mmol/L POC ABG O2 Sat 99.0 H (90-95) % ABG O2 Saturation (90-95) % ABG Base Excess (-9-1.8) mEq/L Jack Test Pass (Pos) Barometric Pressure Oxygen Given O2 Delivery Device Cannula POC Sodium 135 (135-144) mmol/L Sodium 136 (136-145) mmol/L POC Potassium 4.6 (3.3-5.0) mmol/L Potassium 4.7 (3.5-5.1) mmol/L Chloride 99 (98-107) mmol/L Carbon Dioxide 31 (21-32) mmol/L Anion Gap 6 (3-11) BUN 33 H (6-23) mg/dl Creatinine 2.10 H (0.6-1.2) mg/dl Est Cr Clr Drug Dosing 27.2 ml/min Est GFR ( Amer) 25.8 ml/min Est GFR (Non-Af Amer) 22.3 ml/min BUN/Creatinine Ratio 15.7 (10-20) Glucose 87 (70-99(Fasting)) mg/dl POC Glucose 89 (70-99) mg/dl Calcium 8.9 (8.5-10.1) mg/dl Phosphorus 4.3 (2.5-4.9) mg/dl Magnesium 2.2 (1.7-2.4) mg/dl Ammonia (18-72) umol/L Procalcitonin (0-0.5) ng/ml 03/04/22 03/04/22 03/04/22 Range/Units 22:40 20:36 17:12 WBC (4.8-10.8) K/ul RBC (3.93-5.22) M/uL Hgb (12.0-16.0) g/dl POC Hgb (12.0-16.0) g/dl Hct (34.1-44.9) % POC Hct (37-47) % MCV (80.0-100.0) fL MCH (25.0-34.0) pg MCHC (32.0-36.0) g/dL RDW Std Deviation (36.4-46.3) fL RDW Coeff of Javier (11.5-14.5) % Plt Count (130-400) K/uL MPV (9.4-12.3) fL Sample Site POC pH (7.35-7.45) POC pCO2 (35-46) mmHg POC pO2 (80-95) mmHg POC HCO3 (19-24) radha/L POC Total CO2 (24-31) mmol/L POC Base Excess (-9-1.8) radha/L ABG pH Cancelled (7.35-7.45) ABG pH (Temp Correct) (7.35-7.45) ABG pCO2 Cancelled (35-46) mmHg ABG pCO2 (Temp Corrct (35-46) mmHg ABG pO2 Cancelled (80-95) mmHg POC ABG pO2 at Pt Temp ABG HCO3 Cancelled (19-24) mmol/L POC ABG O2 Sat (90-95) % ABG O2 Saturation Cancelled (90-95) % ABG Base Excess Cancelled (-9-1.8) mEq/L Jack Test Cancelled (Pos) Barometric Pressure Cancelled Oxygen Given Cancelled O2 Delivery Device POC Sodium (135-144) mmol/L Sodium (136-145) mmol/L POC Potassium (3.3-5.0) mmol/L Potassium (3.5-5.1) mmol/L Chloride (98-107) mmol/L Carbon Dioxide (21-32) mmol/L Anion Gap (3-11) BUN (6-23) mg/dl Creatinine (0.6-1.2) mg/dl Est Cr Clr Drug Dosing ml/min Est GFR ( Amer) ml/min Est GFR (Non-Af Amer) ml/min BUN/Creatinine Ratio (10-20) Glucose (70-99(Fasting)) mg/dl POC Glucose 96 (70-99) mg/dl Calcium (8.5-10.1) mg/dl Phosphorus (2.5-4.9) mg/dl Magnesium (1.7-2.4) mg/dl Ammonia 21.0 (18-72) umol/L Procalcitonin (0-0.5) ng/ml 03/04/22 03/04/22 Range/Units 16:48 12:36 WBC (4.8-10.8) K/ul RBC (3.93-5.22) M/uL Hgb (12.0-16.0) g/dl POC Hgb (12.0-16.0) g/dl Hct (34.1-44.9) % POC Hct (37-47) % MCV (80.0-100.0) fL MCH (25.0-34.0) pg MCHC (32.0-36.0) g/dL RDW Std Deviation (36.4-46.3) fL RDW Coeff of Javier (11.5-14.5) % Plt Count (130-400) K/uL MPV (9.4-12.3) fL Sample Site POC pH (7.35-7.45) POC pCO2 (35-46) mmHg POC pO2 (80-95) mmHg POC HCO3 (19-24) radha/L POC Total CO2 (24-31) mmol/L POC Base Excess (-9-1.8) radha/L ABG pH 7.33 L (7.35-7.45) ABG pH (Temp Correct) (7.35-7.45) ABG pCO2 63 H (35-46) mmHg ABG pCO2 (Temp Corrct (35-46) mmHg ABG pO2 120 H (80-95) mmHg POC ABG pO2 at Pt Temp ABG HCO3 33 H (19-24) mmol/L POC ABG O2 Sat (90-95) % ABG O2 Saturation 99.3 H (90-95) % ABG Base Excess 5.3 H (-9-1.8) mEq/L Jack Test Pos (Pos) Barometric Pressure Oxygen Given 3L O2 Delivery Device POC Sodium (135-144) mmol/L Sodium (136-145) mmol/L POC Potassium (3.3-5.0) mmol/L Potassium (3.5-5.1) mmol/L Chloride (98-107) mmol/L Carbon Dioxide (21-32) mmol/L Anion Gap (3-11) BUN (6-23) mg/dl Creatinine (0.6-1.2) mg/dl Est Cr Clr Drug Dosing ml/min Est GFR ( Amer) ml/min Est GFR (Non-Af Amer) ml/min BUN/Creatinine Ratio (10-20) Glucose (70-99(Fasting)) mg/dl POC Glucose 128 H (70-99) mg/dl Calcium (8.5-10.1) mg/dl Phosphorus (2.5-4.9) mg/dl Magnesium (1.7-2.4) mg/dl Ammonia (18-72) umol/L Procalcitonin (0-0.5) ng/ml Medications Administered Current Inpatient Medications Acetaminophen (Acetaminophen 500 Mg Tab) 1,000 mg PO Q12H JEY Stop: 04/02/22 18:59 Last Admin: 03/05/22 03:33 Dose: Not Given Documented by: Albuterol (Albuterol 0.083% Nebu Soln 3 Ml Vial) 2.5 mg INH Q6H PRN; Protocol PRN Reason: shortness of breath or wheezing Stop: 04/01/22 21:19 Aspirin (Aspirin 81 Mg Ectab) 81 mg PO DAILY JEY Stop: 04/02/22 08:59 Last Admin: 03/05/22 08:53 Dose: Not Given Documented by: Carvedilol (Carvedilol 12.5 Mg Tab) 12.5 mg PO BID JEY Stop: 04/01/22 21:19 Last Admin: 03/05/22 08:53 Dose: Not Given Documented by: Clopidogrel Bisulfate (Clopidogrel Bisulfate 75 Mg Tab) 75 mg PO DAILY JEY Stop: 04/02/22 08:59 Last Admin: 03/05/22 08:53 Dose: Not Given Documented by: Cyanocobalamin (Cyanocobalamin (B-12) 100 Mcg Tablet) 100 mcg PO DAILY JEY Stop: 04/02/22 08:59 Last Admin: 03/05/22 08:53 Dose: Not Given Documented by: Dextrose (Dextrose 50% 50 Ml Syringe) 25 - 50 ml IV UD PRN; Protocol PRN Reason: Hypoglycemia Protocol Stop: 04/01/22 21:19 Dextrose (Dextrose 50% 50 Ml Syringe) 25 - 50 ml IV UD PRN; Protocol PRN Reason: Hypoglycemia Protocol Stop: 04/01/22 21:44 Diclofenac Sodium (Diclofenac Sod 1% Gel 100 Gm Tube) 4 gm EXT QID JEY; Buddy col Stop: 04/01/22 21:19 Last Admin: 03/05/22 11:51 Dose: Not Given Documented by: Furosemide (Furosemide 40 Mg/4 Ml Vial) 40 mg IV DAILY JEY Stop: 04/02/22 08:59 Last Admin: 03/04/22 11:47 Dose: Not Given Documented by: Gabapentin (Gabapentin 100 Mg Cap) 100 mg PO BID JEY Stop: 04/01/22 21:19 Last Admin: 03/04/22 21:34 Dose: 100 mg Documented by: Glucagon (Glucagon For Inj 1 Mg Vial) 1 mg SQ UD PRN; Protocol PRN Reason: Hypoglycemia Protocol Stop: 04/01/22 21:19 Glucagon (Glucagon For Inj 1 Mg Vial) 1 mg IM UD PRN; Protocol PRN Reason: Hypoglycemia Protocol Stop: 04/01/22 21:44 Glucose (Glucose 10 Tabs/Tube) 4 - 8 tabs PO UD PRN; Protocol PRN Reason: Hypoglycemia Protocol Stop: 04/01/22 21:19 Glucose (Glucose 40% Gel 15 Gm Tube) 15 - 30 gm PO UD PRN; Protocol PRN Reason: Hypoglycemia Protocol Stop: 04/01/22 21:19 Glucose (Glucose 40% Gel 15 Gm Tube) 15 - 30 gm PO UD PRN; Protocol PRN Reason: Hypoglycemia Protocol Stop: 04/01/22 21:44 Glucose (Glucose 10 Tabs/Tube) 4 - 8 tabs PO UD PRN; Protocol PRN Reason: Hypoglycemia Protocol Stop: 04/01/22 21:44 Heparin Sodium (Porcine) (Heparin Sod 5,000 Unit/0.5 Ml Vial) 5,000 units SQ Q8 JEY Stop: 04/01/22 21:59 Last Admin: 03/05/22 05:47 Dose: 5,000 units Documented by: Hydromorphone HCl (Hydromorphone Inj 0.5 Mg/0.5 Ml Syr) 0.5 mg IV Q4H PRN PRN Reason: Pain Stop: 03/17/22 23:27 Last Admin: 03/03/22 23:44 Dose: 0.5 mg Documented by: Daptomycin 450 mg/ Syringe 9 mls @ 4.5 mls/min IV Q48H JEY; Protocol Stop: 03/10/22 18:59 Last Admin: 03/03/22 20:20 Dose: 4.5 mls/min Documented by: Piperacillin Sod/Tazobactam (Sod 4.5 gm/ Dextrose) 120 mls @ 30 mls/hr IV Q8H [facility]; Protocol Stop: 03/11/22 00:59 Last Admin: 03/05/22 09:04 Dose: 28.4 mls/hr Documented by: Acetaminophen (Ofirmev) 1,000 mg in 100 mls @ 400 mls/hr IV Q8H [facility] Stop: 03/07/22 14:14 Last Infusion: 03/05/22 06:09 Dose: Infused Documented by: Albumin Human (Albumin 25% 100 Ml) 25 gm in 100 mls @ 50 mls/hr IV Q8H [facility] Stop: 03/07/22 16:14 Last Infusion: 03/05/22 11:33 Dose: Infused Documented by: Insulin Aspart (Insulin Aspart Per Unit) 0 units SC ACHS [facility] Stop: 04/01/22 21:19 Last Admin: 03/05/22 11:34 Dose: Not Given Documented by: Insulin Glargine (Lantus Per Unit Charge) 0 units SQ BID [facility] Stop: 04/01/22 21:19 Last Admin: 03/05/22 08:54 Dose: Not Given Documented by: Loratadine (Loratadine 10 Mg Tab) 10 mg PO DAILY [facility] Stop: 04/02/22 08:59 Last Admin: 03/05/22 08:54 Dose: Not Given Documented by: Magnesium Oxide (Magnesium Oxide 400 Mg Tab) 200 mg PO DAILY [facility] Stop: 04/02/22 08:59 Last Admin: 03/05/22 08:54 Dose: Not Given Documented by: Miscellaneous (Budesonide Aq: Order Awaiting Action) 1 ea N/A QS [facility] Stop: 04/02/22 07:59 Last Admin: 03/05/22 08:53 Dose: Not Given Documented by: Miscellaneous (Carbohydrates For Hypoglycemia ) 15 - 30 gm PO UD PRN PRN Reason: Hypoglycemia Protocol Stop: 04/01/22 21:19 Miscellaneous (Carbohydrates For Hypoglycemia ) 15 - 30 gm PO UD PRN PRN Reason: Hypoglycemia Treatment Stop: 04/01/22 21:44 Montelukast Sodium (Montelukast Sodium 10 Mg Tablet) 10 mg PO DAILY [facility] Stop: 04/02/22 08:59 Last Admin: 03/05/22 08:54 Dose: Not Given Documented by: Morphine Sulfate (Morphine Sulfate Cr 15 Mg Tabcr) 15 mg PO BID JEY Stop: 03/16/22 21:19 Last Admin: 03/04/22 21:37 Dose: 15 mg Documented by: Multivitamins/Minerals (Cerovite Adv Formula Tab) 1 tab PO DAILY JEY Stop: 04/02/22 08:59 Last Admin: 03/05/22 08:54 Dose: Not Given Documented by: Olanzapine (Olanzapine 10 Mg/2.1 Ml Sdv) 2.5 mg IM Q4H PRN PRN Reason: Anxiety/Agitation Stop: 04/03/22 23:41 Ondansetron HCl (Ondansetron Inj 2 Mg/Ml 2 Ml Vial) 4 mg IV Q6H PRN PRN Reason: Nausea Stop: 04/01/22 21:19 Oxycodone HCl (Oxycodone Hcl Ir 5 Mg Tab (Immediate Release)) 5 mg PO Q4H PRN PRN Reason: Pain Stop: 03/17/22 23:29 Polyethylene Glycol (Polyethylene (Miralax) 17 Gm Pack) 17 gm PO DAILY PRN PRN Reason: Constipation Stop: 04/01/22 21:19 Saccharomyces Boulardii (Saccharomyces Boulardii 250 Mg Cap) 250 mg PO BID JEY Stop: 04/01/22 21:19 Last Admin: 03/05/22 08:54 Dose: Not Given Documented by: (1) Fall Encounter type: initial encounter Qualified Code(s): W19.XXXA - Unspecified fall, initial encounter
--- NOTE | 2022-03-05 12:34 | Neurology Consultation ---
Date of Consultation March 05, 2022 Assessment & Plan (1) Altered mental status: (2) Acute kidney injury superimposed on chronic kidney disease: (3) Diabetes mellitus, type II: (4) Cellulitis of right leg: Supervising Physician Co-Signing Physician Notes Patient was seen and examined. at bedside provides the history as patient is encephaloapthic. Discussed with Dr. Laura and Nellie Culp PA-C. Patient appears to have hyperactive delirium in the setting of presumed sepsis or metabolic encephalopathy. CT head reviewed. There is no hemorrhage or evidence of a acute stroke. EEG showed generalized slowing with movement / myogenic artifact with broad based frontally predominant sharp waves with traphasic morphology. No electrographic seizures were seen. reports no witnessed seizure activity or prior history of seizures. He noted rapid change in mentation once hospitalized which may be suggestive of a hospital acquired delirium in the setting of an infection / ELOY. Patient is not hypertensive or febrile. BC negative. Afebrile. If mentation does not improve would recommend 24-hour of cVEEG for further evaluation. History of Present Illness Reason for Consultation: AMS, spasticity Requesting Physician: Guido Laura MD Attending Physician: Guido Laura MD History of Present Illness Heavenly is a 76 year old female with a PMH - uncontrolled DM II, asthma, severe sleep apnea on 3L NC HS, systolic and diastolic heart failure, h/o complete heart block s/p pacemaker placement, LBBB, PVD, CKD III, HLD, morbid obesity presents from home after fall. Fell out of bed this morning when reaching for p bronson and hit her head. Denies LOC. Feeling generally weak. Has been at [facility] for rehab for 5 months following admission at the beginning of the year following periprosthetic knee fracture. Was discharged home from SNF 10 days ago. Since then, presented to ER for RLE wounds and was prescribed Augmentin in ER that she has completed. Wound continued to look worse and patient was prescribed Clindamycin for 10 days, which patient began on February 26. Per Dr. Jones's recent note, her overall health has been declining in large part due to uncontrolled diabetes. Can ambulate a few steps and has a wheelchair at home as well. Allergies Allergy/AdvReac Type Severity Reaction Status Date / Time fluticasone Allergy Severe WATER ON Verified 03/02/22 17:13 LUNGS salmeterol Allergy Severe WATER ON Verified 03/02/22 17:13 LUNGS propoxyphene Allergy Mild FROM Verified 03/02/22 17:13 DARVOCET benzocaine Allergy Unknown Unknown Verified 03/02/22 17:13 mold Allergy Unknown Unknown Verified 03/02/22 17:13 acetaminophen [From Vicodin] AdvReac Intermediate hallucinati Verified 03/02/22 17:13 ons hydrocodone [From Vicodin] AdvReac Intermediate hallucinati Verified 03/02/22 17:13 ons oxycodone AdvReac Intermediate Hallucinati Verified 03/02/22 17:13 ng prednisone AdvReac Intermediate HYPERGLYCEM Verified 03/02/22 17:13 IA Home Medications Medication Instructions Recorded Confirmed Type aspirin 81 mg tablet,delayed 81 mg PO DAILY 10/01/19 03/02/22 History release carvedilol 12.5 mg tablet 12.5 mg PO BID 10/01/19 03/02/22 History clopidogrel 75 mg tablet 75 mg PO DAILY 10/01/19 03/02/22 History cyanocobalamin (vitamin B-12) 100 100 mcg PO DAILY 10/01/19 03/02/22 History mcg tablet loratadine 10 mg tablet 10 mg PO DAILY 10/01/19 03/02/22 History montelukast 10 mg tablet 10 mg PO DAILY 10/01/19 03/02/22 History multivitamin with minerals 1 tab PO DAILY 10/01/19 03/02/22 History (Multiple Vitamin-Minerals) budesonide 32 mcg/actuation nasal 2 spray INTRANASAL DAILY 09/22/21 03/02/22 History spray diclofenac sodium 1 % topical gel 4 g TOPICAL QID 09/22/21 03/02/22 History dulaglutide 3 mg/0.5 mL 3 mg SUBCUT WK 09/22/21 03/02/22 History subcutaneous pen injector (Trulicity) furosemide 40 mg tablet 40 mg PO QAM 09/22/21 03/02/22 History insulin aspart U-100 100 unit/mL 10 unit SUBCUT TID 09/22/21 03/02/22 History (3 mL) subcutaneous pen (Novolog Flexpen U-100 Insulin aspart) rosuvastatin 40 mg tablet 40 mg PO DAILY 09/22/21 03/02/22 History acetaminophen 325 mg tablet 650 mg PO TID PRN #180 tab 10/21/21 03/02/22 Rx gabapentin 100 mg capsule 100 mg PO BID #60 cap 10/21/21 03/02/22 Rx insulin glargine 100 unit/mL (3 50 unit SUBCUT BID #0 ml 10/21/21 03/02/22 Rx mL) subcutaneous pen (Lantus Solostar U-100 Insulin) albuterol sulfate 2.5 mg INHALATION Q6H PRN #75 ml 02/20/22 03/02/22 Rx losartan 100 mg tablet 100 mg PO DAILY 02/20/22 03/02/22 History magnesium 100 mg tablet 100 mg PO DAILY 02/20/22 03/02/22 History potassium gluconate 550 mg (90 mg) 550 mg PO DAILY 02/20/22 03/02/22 History tablet Saccharomyces boulardii 250 mg 250 mg PO BID 03/02/22 03/02/22 History capsule clindamycin HCl 300 mg capsule 300 mg PO QID 03/02/22 03/02/22 History morphine 15 mg tablet,extended 15 mg PO BID PRN 03/02/22 03/02/22 History release tramadol 50 mg tablet 50 mg PO Q8 PRN 03/02/22 03/02/22 History Patient History Medical History Asthma CKD (chronic kidney disease), stage III Combined congestive systolic and diastolic heart failure Complete heart block (06/14/14) Diabetes mellitus, type II Diabetes mellitus, type II, insulin dependent Dyslipidemia Excessive daytime sleepiness Granulomatous interstitial lung disease HTN (hypertension) Morbid obesity due to excess calories Nonischemic cardiomyopathy Pacemaker Physical deconditioning PVD (peripheral vascular disease) Sleep apnea Surgical History H/O tubal ligation History of cardiac cath 2014 - normal coronary arteries; Dr Jorgensen at [facility] [place] History of carpal tunnel release History of cataract removal with insertion of prosthetic lens History of revascularization procedure of lower extremity fem/pop artery revascularization RLE; 09/2017; Dr Gill at [facility] [place] History of total knee arthroplasty 2005; bilateral Family History Mother Leukemia Son Asthma Brother Stroke Social History Smoking Status: Never smoker Second Hand Exposure: No; Hx Alcohol Use: No Hx Substance Use: No Preferred Language: Tuvaluan Communication Ability: Effective [employer] Teacher Required: No Beliefs That Will Affect Care: None marital status: Current Living Situation: Spouse Other Information That Helps Us Care for You: No Feels Safe at Home: Yes Safety Concerns: Feels Safe At This Time Assistive Devices: Cane, Oxygen - at Night, Walker and Wheelchair Physical Exam Physical Exam: Patient appears acutely ill. Restless and confused. Obese female. Nonverbal. Not following commands. Mild right sided neglect. Eyes midline. Blinks to threat. tongue midline. Pupils symmetric. Forced eye closure. 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 Moving all 4 extremities to gravity. attempting to roll to the left. Reaching for things that are not there. No tremor or myoclonus. Right foot erythematous with foot ulcer. High arched feet. Rigth toe is extended. Results & Data ([facility]) Vital Signs (Past 12 Hours) Vital Signs Temp Pulse Pulse Resp BP BP BP 03/05/22 11:42 36.6 C 85 18 115/51 L 03/05/22 08:00 80 03/05/22 04:29 36.4 C L 89 22 98/54 L 03/05/22 02:39 88 19 03/05/22 00:35 36.8 C 91 H 18 127/59 L Pulse Ox 03/05/22 11:42 93 03/05/22 08:00 03/05/22 04:29 100 03/05/22 02:39 96 03/05/22 00:35 97 Laboratory Results Abnormal lab results 03/04/22 03/04/22 03/04/22 Range/Units 12:36 16:48 22:40 RBC (3.93-5.22) M/uL Hgb (12.0-16.0) g/dl POC Hgb (12.0-16.0) g/dl Hct (34.1-44.9) % POC Hct (37-47) % MCHC (32.0-36.0) g/dL RDW Std Deviation (36.4-46.3) fL RDW Coeff of Javier (11.5-14.5) % MPV (9.4-12.3) fL POC pH (7.35-7.45) POC pCO2 (35-46) mmHg POC pO2 (80-95) mmHg POC HCO3 (19-24) radha/L POC Total CO2 (24-31) mmol/L POC Base Excess (-9-1.8) radha/L ABG pH 7.33 L (7.35-7.45) ABG pH (Temp Correct) (7.35-7.45) ABG pCO2 63 H (35-46) mmHg ABG pCO2 (Temp Corrct (35-46) mmHg ABG pO2 120 H (80-95) mmHg ABG HCO3 33 H (19-24) mmol/L POC ABG O2 Sat (90-95) % ABG O2 Saturation 99.3 H (90-95) % ABG Base Excess 5.3 H (-9-1.8) mEq/L Sodium (136-145) mmol/L BUN 33 H (6-23) mg/dl Creatinine 2.10 H (0.6-1.2) mg/dl Glucose (70-99(Fasting)) mg/dl POC Glucose 128 H (70-99) mg/dl 03/04/22 03/05/22 03/05/22 Range/Units 22:42 01:14 06:00 RBC (3.93-5.22) M/uL Hgb (12.0-16.0) g/dl POC Hgb 9.2 L (12.0-16.0) g/dl Hct (34.1-44.9) % POC Hct 27 L (37-47) % MCHC (32.0-36.0) g/dL RDW Std Deviation (36.4-46.3) fL RDW Coeff of Javier (11.5-14.5) % MPV (9.4-12.3) fL POC pH 7.34 L (7.35-7.45) POC pCO2 61 H (35-46) mmHg POC pO2 131 H (80-95) mmHg POC HCO3 32 H (19-24) radha/L POC Total CO2 34 H (24-31) mmol/L POC Base Excess 6.0 H (-9-1.8) radha/L ABG pH (7.35-7.45) ABG pH (Temp Correct) 7.337 L (7.35-7.45) ABG pCO2 56 H (35-46) mmHg ABG pCO2 (Temp Corrct 60 H (35-46) mmHg ABG pO2 117 H (80-95) mmHg ABG HCO3 32 H (19-24) mmol/L POC ABG O2 Sat 99.0 H (90-95) % ABG O2 Saturation 99.4 H (90-95) % ABG Base Excess 4.6 H (-9-1.8) mEq/L Sodium 135 L (136-145) mmol/L BUN 31 H (6-23) mg/dl Creatinine 1.96 H (0.6-1.2) mg/dl Glucose 104 H (70-99(Fasting)) mg/dl POC Glucose (70-99) mg/dl 03/05/22/04/19 Range/Units 06:00 07:38 RBC 2.96 L (3.93-5.22) M/uL Hgb 9.1 L (12.0-16.0) g/dl POC Hgb (12.0-16.0) g/dl Hct 29.1 L (34.1-44.9) % POC Hct (37-47) % MCHC 31.3 L (32.0-36.0) g/dL RDW Std Deviation 68.7 H (36.4-46.3) fL RDW Coeff of Javier 18.9 H (11.5-14.5) % MPV 9.0 L (9.4-12.3) fL POC pH (7.35-7.45) POC pCO2 (35-46) mmHg POC pO2 (80-95) mmHg POC HCO3 (19-24) radha/L POC Total CO2 (24-31) mmol/L POC Base Excess (-9-1.8) radha/L ABG pH (7.35-7.45) ABG pH (Temp Correct) (7.35-7.45) ABG pCO2 (35-46) mmHg ABG pCO2 (Temp Corrct (35-46) mmHg ABG pO2 (80-95) mmHg ABG HCO3 (19-24) mmol/L POC ABG O2 Sat (90-95) % ABG O2 Saturation (90-95) % ABG Base Excess (-9-1.8) mEq/L Sodium (136-145) mmol/L BUN (6-23) mg/dl Creatinine (0.6-1.2) mg/dl Glucose (70-99(Fasting)) mg/dl POC Glucose 110 H (70-99) mg/dl Diagnostic Findings CT head-No acute intracranial abnormality. 03/03 CT head- here is no evidence of hemorrhage, mass effect, or acute territorial ischemia by CT criteria noting a significantly motion compromised examination. 03/04
--- NOTE | 2022-03-05 14:23 | Nephrology Progress Note ---
Date of Service March 05, 2022 Assessment & Plan (1) Acute kidney injury superimposed on chronic kidney disease: Plan: Home on CKD -Ischemic ATN -,sCR peaked at 2.47 , improved to 2.33---> 1.96, UOP has been reasonable -continue on Iv lasix, agree with albumin for 1 more day -Daily weights preferably on the same scale -Continue to hold losartan at the moment -Input and output (2) Cellulitis of right leg: Plan: As per primary -Princess Osteomyelitis - REnally dose antibiotics. - PVD-- Awaiting transfer to [facility]. (3) Fall: (4) Diabetes mellitus, type II: Admission and Anticipated Discharge Date Admission Date: March 02, 2022 Subjective Resting comfortably in bed, no respiratory distress Reponsive to voice but does not follow commands. Patient was confused yesterday, CT negative. likely 2/ metabolic causes. More settled today. Review of Systems Review of Systems: Morbidly obese.Comfortable, responsive to voice. No shortness of breath Chronic bilateral pedal edema. Physical Exam Physical Exam: General Appearance:Morbidly Obese, no apparent distress, Somlon[place] Head: normocephalic, +traumatic: Occipital scalp laceration Eyes: normal inspection, EOMI Neck: supple, Trachea midline Respiratory/Chest: Normal breath sounds, CTA, No accessory muscle use Cardiovascular: S1, S2, No murmur Abdomen/GI:Soft, Non tender, Bowel sounds present Extremities/Musculoskeletal:normal inspection, B/L LE 2+ edema, ulcers on right foot with mild erythema of right lower extremity Results & Data ([facility]) Vital Signs (Past 12 Hours) Vital Signs Temp Pulse Pulse Resp BP BP Pulse Ox 03/05/22 11:42 36.6 C 85 18 115/51 L 93 03/05/22 08:00 80 03/05/22 04:29 36.4 C L 89 22 98/54 L 100 03/05/22 02:39 88 19 96 Laboratory Results 03/05/22 06:00 03/05/22 06:00 (1) Fall Encounter type: initial encounter Qualified Code(s): W19.XXXA - Unspecified fall, initial encounter
--- NOTE | 2022-03-05 15:42 | Electroencephalogram ---
EEG Procedure Note Date of Service March 05, 2022 Start / End Times Start Time: 11:34 End Time: 11:[address] Zuleyka MD History A 76-year-old woman with encephalopathy. She was noted to be shaking and tense. EEG performed for ration of epileptiform activity. Home Medication List Medication Instructions Recorded Confirmed Type aspirin 81 mg tablet,delayed 81 mg PO DAILY 10/01/19 03/02/22 History release carvedilol 12.5 mg tablet 12.5 mg PO BID 10/01/19 03/02/22 History clopidogrel 75 mg tablet 75 mg PO DAILY 10/01/19 03/02/22 History cyanocobalamin (vitamin B-12) 100 100 mcg PO DAILY 10/01/19 03/02/22 History mcg tablet loratadine 10 mg tablet 10 mg PO DAILY 10/01/19 03/02/22 History montelukast 10 mg tablet 10 mg PO DAILY 10/01/19 03/02/22 History multivitamin with minerals 1 tab PO DAILY 10/01/19 03/02/22 History (Multiple Vitamin-Minerals) budesonide 32 mcg/actuation nasal 2 spray INTRANASAL DAILY 09/22/21 03/02/22 History spray diclofenac sodium 1 % topical gel 4 g TOPICAL QID 09/22/21 03/02/22 History dulaglutide 3 mg/0.5 mL 3 mg SUBCUT WK 09/22/21 03/02/22 History subcutaneous pen injector (Trulicity) furosemide 40 mg tablet 40 mg PO QAM 09/22/21 03/02/22 History insulin aspart U-100 100 unit/mL 10 unit SUBCUT TID 09/22/21 03/02/22 History (3 mL) subcutaneous pen (Novolog Flexpen U-100 Insulin aspart) rosuvastatin 40 mg tablet 40 mg PO DAILY 09/22/21 03/02/22 History acetaminophen 325 mg tablet 650 mg PO TID PRN #180 tab 10/21/21 03/02/22 Rx gabapentin 100 mg capsule 100 mg PO BID #60 cap 10/21/21 03/02/22 Rx insulin glargine 100 unit/mL (3 50 unit SUBCUT BID #0 ml 10/21/21 03/02/22 Rx mL) subcutaneous pen (Lantus Solostar U-100 Insulin) albuterol sulfate 2.5 mg INHALATION Q6H PRN #75 ml 02/20/22 03/02/22 Rx losartan 100 mg tablet 100 mg PO DAILY 02/20/22 03/02/22 History magnesium 100 mg tablet 100 mg PO DAILY 02/20/22 03/02/22 History potassium gluconate 550 mg (90 mg) 550 mg PO DAILY 02/20/22 03/02/22 History tablet Saccharomyces boulardii 250 mg 250 mg PO BID 03/02/22 03/02/22 History capsule clindamycin HCl 300 mg capsule 300 mg PO QID 03/02/22 03/02/22 History morphine 15 mg tablet,extended 15 mg PO BID PRN 03/02/22 03/02/22 History release tramadol 50 mg tablet 50 mg PO Q8 PRN 03/02/22 03/02/22 History Inpatient Medication List Acetaminophen (Acetaminophen 500 Mg Tab) 1,000 mg PO Q12H JEY Stop: 04/02/22 18:59 Last Admin: 03/05/22 03:33 Dose: Not Given Documented by: [id number] Admin: 03/04/22 18:57 Dose: Not Given Documented by: [id number] Admin: 03/04/22 06:10 Dose: Not Given Documented by: [id number] Admin: 03/03/22 19:56 Dose: 1,000 mg Documented by: [id number] Aspirin (Aspirin 81 Mg Ectab) 81 mg PO DAILY JEY Stop: 04/02/22 08:59 Last Admin: 03/05/22 08:53 Dose: Not Given Documented by: [id number] Admin: 03/04/22 11:46 Dose: Not Given Documented by: [id number] Admin: 03/03/22 08:46 Dose: 81 mg Documented by: [id number] Carvedilol (Carvedilol 12.5 Mg Tab) 12.5 mg PO BID JEY Stop: 04/01/22 21:19 Last Admin: 03/05/22 08:53 Dose: Not Given Documented by: [id number] Admin: 03/04/22 21:32 Dose: Not Given Documented by: [id number] Admin: 03/04/22 11:46 Dose: Not Given Documented by: [id number] Admin: 03/03/22 19:57 Dose: 12.5 mg Documented by: [id number] Admin: 03/03/22 08:44 Dose: 12.5 mg Documented by: [id number] Admin: 03/02/22 22:23 Dose: 12.5 mg Documented by: [id number] Clopidogrel Bisulfate (Clopidogrel Bisulfate 75 Mg Tab) 75 mg PO DAILY [facility] Stop: 04/02/22 08:59 Last Admin: 03/05/22 08:53 Dose: Not Given Documented by: [id number] Admin: 03/04/22 11:46 Dose: Not Given Documented by: [id number] Admin: 03/03/22 08:47 Dose: 75 mg Documented by: [id number] Cyanocobalamin (Cyanocobalamin (B-12) 100 Mcg Tablet) 100 mcg PO DAILY [facility] Stop: 04/02/22 08:59 Last Admin: 03/05/22 08:53 Dose: Not Given Documented by: [id number] Admin: 03/04/22 11:46 Dose: Not Given Documented by: [id number] Admin: 03/03/22 08:45 Dose: 100 mcg Documented by: [id number] Diclofenac Sodium (Diclofenac Sod 1% Gel 100 Gm Tube) 4 gm EXT QID [facility]; Protocol Stop: 04/01/22 21:19 Last Admin: 03/05/22 11:51 Dose: Not Given Documented by: [id number] Admin: 03/05/22 08:53 Dose: Not Given Documented by: [id number] Admin: 03/04/22 21:32 Dose: 4 gm Documented by: [id number] Admin: 03/04/22 18:03 Dose: 4 gm Documented by: [id number] Admin: 03/04/22 13:33 Dose: Not Given Documented by: [id number] Admin: 03/04/22 11:47 Dose: Not Given Documented by: [id number] Admin: 03/03/22 19:58 Dose: 4 gm Documented by: [id number] Admin: 03/03/22 17:36 Dose: 4 gm Documented by: [id number] Admin: 03/03/22 12:49 Dose: 4 gm Documented by: [id number] Admin: 03/03/22 08:46 Dose: 4 gm Documented by: [id number] Admin: 03/02/22 22:21 Dose: 4 gm Documented by: [id number] Furosemide (Furosemide 40 Mg/4 Ml Vial) 40 mg IV DAILY [facility] Stop: 04/02/22 08:59 Last Admin: 03/04/22 11:47 Dose: Not Given Documented by: [id number] Admin: 03/03/22 08:46 Dose: 40 mg Documented by: [id number] Gabapentin (Gabapentin 100 Mg Cap) 100 mg PO BID JEY Stop: 04/01/22 21:19 Last Admin: 03/04/22 21:34 Dose: 100 mg Documented by: [id number] Admin: 03/04/22 11:47 Dose: Not Given Documented by: [id number] Admin: 03/03/22 19:57 Dose: 100 mg Documented by: [id number] Admin: 03/03/22 08:45 Dose: 100 mg Documented by: [id number] Admin: 03/02/22 22:23 Dose: 100 mg Documented by: [id number] Heparin Sodium (Porcine) (Heparin Sod 5,000 Unit/0.5 Ml Vial) 5,000 units SQ Q8 JEY Stop: 04/01/22 21:59 Last Admin: 03/05/22 14:10 Dose: 5,000 units Documented by: [id number] Admin: 03/05/22 05:47 Dose: 5,000 units Documented by: [id number] Admin: 03/04/22 22:17 Dose: 5,000 units Documented by: [id number] Admin: 03/04/22 13:47 Dose: 5,000 units Documented by: [id number] Admin: 03/03/22 13:08 Dose: 5,000 units Documented by: [id number] Admin: 03/02/22 22:22 Dose: 5,000 units Documented by: [id number] Hydromorphone HCl (Hydromorphone Inj 0.5 Mg/0.5 Ml Syr) 0.5 mg IV Q4H PRN PRN Reason: Pain Stop: 03/17/22 23:27 Last Admin: 03/03/22 23:44 Dose: 0.5 mg Documented by: [id number] Daptomycin 450 mg/ Syringe 9 mls @ 4.5 mls/min IV Q48H JEY; Protocol Stop: 03/10/22 18:59 Last Admin: 03/03/22 20:20 Dose: 4.5 mls/min Documented by: [id number] Piperacillin Sod/Tazobactam (Sod 4.5 gm/ Dextrose) 120 mls @ 30 mls/hr IV Q8H JEY; Protocol Stop: 03/11/22 00:59 Last Infusion: 03/05/22 14:02 Dose: 0 mls/hr Documented by: [id number] Admin: 03/05/22 09:04 Dose: 28.4 mls/hr Documented by: [id number] Infusion: 03/05/22 05:47 Dose: 0 mls/hr Documented by: [id number] Admin: 03/05/22 01:49 Dose: 30 mls/hr Documented by: [id number] Infusion: 03/04/22 22:09 Dose: 0 mls/hr Documented by: [id number] Admin: 03/04/22 18:03 Dose: 30 mls/hr Documented by: [id number] Infusion: 03/04/22 13:34 Dose: 0 mls/hr Documented by: [id number] Admin: 03/04/22 09:13 Dose: 30 mls/hr Documented by: [id number] Infusion: 03/04/22 05:47 Dose: 0 mls/hr Documented by: [id number] Admin: 03/04/22 02:00 Dose: 30 mls/hr Documented by: [id number] Acetaminophen (Ofirmev) 1,000 mg in 100 mls @ 400 mls/hr IV Q8H JEY Stop: 03/07/22 14:14 Last Infusion: 03/05/22 14:52 Dose: 0 mls/hr Documented by: [id number] Admin: 03/05/22 14:19 Dose: 400 mls/hr Documented by: [id number] Infusion: 03/05/22 06:09 Dose: 0 mls/hr Documented by: [id number] Admin: 03/05/22 05:53 Dose: 400 mls/hr Documented by: [id number] Infusion: 03/04/22 22:44 Dose: 0 mls/hr Documented by: [id number] Admin: 03/04/22 22:22 Dose: 400 mls/hr Documented by: [id number] Infusion: 03/04/22 15:34 Dose: 0 mls/hr Documented by: [id number] Admin: 03/04/22 14:39 Dose: 400 mls/hr Documented by: [id number] Albumin Human (Albumin 25% 100 Ml) 25 gm in 100 mls @ 50 mls/hr IV Q8H JEY Stop: 03/07/22 16:14 Last Admin: 03/05/22 14:19 Dose: 50 mls/hr Documented by: [id number] Infusion: 03/05/22 11:33 Dose: 0 mls/hr Documented by: [id number] Admin: 03/05/22 09:03 Dose: 50 mls/hr Documented by: [id number] Infusion: 03/05/22 01:49 Dose: 0 mls/hr Documented by: [id number] Admin: 03/05/22 00:11 Dose: 50 mls/hr Documented by: [id number] Infusion: 03/04/22 18:36 Dose: 0 mls/hr Documented by: [id number] Admin: 03/04/22 16:31 Dose: 50 mls/hr Documented by: [id number] Insulin Aspart (Insulin Aspart Per Unit) 0 units SC ACHS JEY Stop: 04/01/22 21:19 Last Admin: 03/05/22 11:34 Dose: Not Given Documented by: [id number] Admin: 03/05/22 08:53 Dose: Not Given Documented by: [id number] Admin: 03/04/22 21:43 Dose: Not Given Documented by: [id number] Cosigned by: [id number] Admin: 03/04/22 17:44 Dose: Not Given Documented by: [id number] Admin: 03/04/22 11:55 Dose: 1 units Documented by: [id number] Cosigned by: [id number] Admin: 03/04/22 08:49 Dose: Not Given Documented by: [id number] Admin: 03/03/22 23:19 Dose: 2 units Documented by: [id number] Cosigned by: [id number] Admin: 03/03/22 17:40 Dose: 2 units Documented by: [id number] Cosigned by: [id number] Admin: 03/03/22 13:12 Dose: Not Given Documented by: [id number] Admin: 03/03/22 09:01 Dose: Not Given Documented by: [id number] Admin: 03/02/22 21:51 Dose: 1 units Documented by: [id number] Cosigned by: [id number] Insulin Glargine (Lantus Per Unit Charge) 0 units SQ BID JEY Stop: 04/01/22 21:19 Last Admin: 03/05/22 08:54 Dose: Not Given Documented by: [id number] Admin: 03/04/22 21:43 Dose: Not Given Documented by: [id number] Admin: 03/04/22 11:55 Dose: 25 units Documented by: [id number] Cosigned by: [id number] Admin: 03/03/22 23:19 Dose: 35 units Documented by: [id number] Cosigned by: [id number] Admin: 03/03/22 09:04 Dose: 25 units Documented by: [id number] Cosigned by: [id number] Admin: 03/02/22 21:51 Dose: 25 units Documented by: [id number] Cosigned by: [id number] Loratadine (Loratadine 10 Mg Tab) 10 mg PO DAILY JEY Stop: 04/02/22 08:59 Last Admin: 03/05/22 08:54 Dose: Not Given Documented by: [id number] Admin: 03/04/22 11:47 Dose: Not Given Documented by: [id number] Admin: 03/03/22 08:44 Dose: 10 mg Documented by: [id number] Magnesium Oxide (Magnesium Oxide 400 Mg Tab) 200 mg PO DAILY JEY Stop: 04/02/22 08:59 Last Admin: 03/05/22 08:54 Dose: Not Given Documented by: [id number] Admin: 03/04/22 11:47 Dose: Not Given Documented by: [id number] Admin: 03/03/22 08:44 Dose: 200 mg Documented by: [id number] Miscellaneous (Budesonide Aq: Order Awaiting Action) 1 ea N/A QS JEY Stop: 04/02/22 07:59 Last Admin: 03/05/22 08:53 Dose: Not Given Documented by: [id number] Admin: 03/04/22 23:58 Dose: Not Given Documented by: [id number] Admin: 03/04/22 16:16 Dose: Not Given Documented by: [id number] Admin: 03/04/22 08:53 Dose: Not Given Documented by: [id number] Admin: 03/03/22 23:20 Dose: Not Given Documented by: [id number] Admin: 03/03/22 14:48 Dose: Not Given Documented by: [id number] Admin: 03/03/22 08:52 Dose: Not Given Documented by: [id number] Montelukast Sodium (Montelukast Sodium 10 Mg Tablet) 10 mg PO DAILY JEY Stop: 04/02/22 08:59 Last Admin: 03/05/22 08:54 Dose: Not Given Documented by: [id number] Admin: 03/04/22 11:47 Dose: Not Given Documented by: [id number] Admin: 03/03/22 08:45 Dose: 10 mg Documented by: [id number] Morphine Sulfate (Morphine Sulfate Cr 15 Mg Tabcr) 15 mg PO BID [facility] Stop: 03/16/22 21:19 Last Admin: 03/04/22 21:37 Dose: 15 mg Documented by: [id number] Admin: 03/04/22 11:47 Dose: Not Given Documented by: [id number] Admin: 03/03/22 19:56 Dose: 15 mg Documented by: [id number] Admin: 03/03/22 09:01 Dose: Not Given Documented by: [id number] Admin: 03/02/22 21:52 Dose: 15 mg Documented by: [id number] Multivitamins/Minerals (Cerovite Adv Formula Tab) 1 tab PO DAILY [facility] Stop: 04/02/22 08:59 Last Admin: 03/05/22 08:54 Dose: Not Given Documented by: [id number] Admin: 03/04/22 11:48 Dose: Not Given Documented by: [id number] Admin: 03/03/22 08:44 Dose: 1 tab Documented by: [id number] Ondansetron HCl (Ondansetron Inj 2 Mg/Ml 2 Ml Vial) 4 mg IV Q6H PRN PRN Reason: Nausea Stop: 04/01/22 21:19 Last Admin: 03/05/22 14:19 Dose: 4 mg Documented by: [id number] Saccharomyces Boulardii (Saccharomyces Boulardii 250 Mg Cap) 250 mg PO BID [facility] Stop: 04/01/22 21:19 Last Admin: 03/05/22 08:54 Dose: Not Given Documented by: [id number] Admin: 03/04/22 22:16 Dose: Not Given Documented by: [id number] Admin: 03/04/22 11:48 Dose: Not Given Documented by: [id number] Admin: 03/03/22 19:57 Dose: 250 mg Documented by: [id number] Admin: 03/03/22 08:45 Dose: 250 mg Documented by: [id number] Admin: 03/02/22 22:23 Dose: 250 mg Documented by: [id number] Discontinued Medications Acetaminophen (Acetaminophen 325 Mg Tab) 650 mg PO Q4H PRN PRN Reason: pain/fever Stop: 04/01/22 21:19 Last Admin: 03/03/22 00:39 Dose: 650 mg Documented by: [id number] Clindamycin HCl (Clindamycin Hcl 150 Mg Cap) 300 mg PO QID [facility] Stop: 03/09/22 21:19 Last Admin: 03/03/22 17:36 Dose: 300 mg Documented by: [id number] Admin: 03/03/22 12:49 Dose: 300 mg Documented by: [id number] Admin: 03/03/22 08:45 Dose: 300 mg Documented by: [id number] Admin: 03/02/22 22:23 Dose: 300 mg Documented by: [id number] Diphtheria/Pertussis/Tetanus Vacc (Diphtheria/Tetanus/Pertussis 0.5 Ml Syr/Vial) 0.5 ml IM .ONCE ONE Stop: 03/02/22 12:00 Last Admin: 03/02/22 17:27 Dose: 0.5 ml Documented by: [id number] Diphtheria/Pertussis/Tetanus Vacc (Diphtheria/Tetanus/Pertussis 0.5 Ml Syr/Vial) Confirm Administered Dose 0.5 ml IM .STK-MED ONE Stop: 03/02/22 17:06 Last Admin: 03/02/22 17:46 Dose: Not Given Documented by: [id number] Hydromorphone HCl (Hydromorphone Inj 0.5 Mg/0.5 Ml Syr) 0.25 mg IV NOW STA Stop: 03/04/22 19:14 Last Admin: 03/04/22 19:29 Dose: 0.25 mg Documented by: [id number] Piperacillin Sod/Tazobactam (Sod 4.5 gm/ Dextrose) 120 mls @ 200 mls/hr IV NOW ONE; Protocol Stop: 03/03/22 19:35 Last Infusion: 03/03/22 20:59 Dose: 0 mls/hr Documented by: [id number] Admin: 03/03/22 19:56 Dose: 200 mls/hr Documented by: [id number] Albumin Human (Albumin 25% 100 Ml) 25 gm in 100 mls @ 50 mls/hr IV ONE ONE Stop: 03/05/22 01:15 Last Admin: 03/04/22 23:47 Dose: Not Given Documented by: [id number] Promethazine HCl 12.5 mg/ (Sodium Chloride) 50.5 mls @ 202 mls/hr IV NOW STA Stop: 03/04/22 23:35 Last Infusion: 03/05/22 00:12 Dose: 0 mls/hr Documented by: [id number] Admin: 03/04/22 23:53 Dose: 202 mls/hr Documented by: [id number] Lidocaine (Lidocaine/Epineph/Tetracaine 1 Ea Syr) 1 ea EXT NOW STA Stop: 03/02/22 11:39 Last Admin: 03/02/22 13:35 Dose: 1 ea Documented by: [id number] Morphine Sulfate (Morphine Sulfate 10 Mg/Ml Carp/Vial) 6 mg IV NOW STA Stop: 03/02/22 11:36 Last Admin: 03/02/22 13:07 Dose: 6 mg Documented by: [id number] Morphine Sulfate (Morphine Sulfate 4 Mg/Ml 1 Ml Carp\Vial) 3 mg IV NOW STA Stop: 03/03/22 12:58 Last Admin: 03/03/22 13:05 Dose: 3 mg Documented by: [id number] Naloxone HCl (Naloxone Hcl 0.4 Mg/1 Ml Vial/Carp) 0.4 mg IV NOW STA Stop: 03/04/22 23:07 Last Admin: 03/04/22 23:46 Dose: Not Given Documented by: [id number] Naloxone HCl (Naloxone Hcl 0.4 Mg/1 Ml Vial/Carp) Confirm Administered Dose 0.4 mg .ROUTE .STK-MED ONE Stop: 03/04/22 23:09 Last Admin: 03/04/22 23:46 Dose: 0.4 mg Documented by: [id number] Naloxone HCl (Naloxone Hcl 0.4 Mg/1 Ml Vial/Carp) 0.4 mg IV NOW STA Stop: 03/04/22 23:16 Last Admin: 03/04/22 23:46 Dose: Not Given Documented by: [id number] Naloxone HCl (Naloxone Hcl 0.4 Mg/1 Ml Vial/Carp) Confirm Administered Dose 0.4 mg .ROUTE .STK-MED ONE Stop: 03/04/22 23:17 Last Admin: 03/04/22 23:46 Dose: 0.4 mg Documented by: [id number] Ondansetron HCl (Ondansetron Inj 2 Mg/Ml 2 Ml Vial) 4 mg IV NOW STA Stop: 03/02/22 11:38 Last Admin: 03/02/22 13:07 Dose: 4 mg Documented by: [id number] Perflutren Lipid Microsphere (Perflutren Lipid Microsphere (Definity)) 2 ml IV ONCE ONE Stop: 03/03/22 10:32 Last Admin: 03/03/22 10:32 Dose: 2 ml Documented by: [id number] Rosuvastatin Calcium (Rosuvastatin Calcium 20 Mg Tab) 40 mg PO DAILY JEY Stop: 04/02/22 08:59 Last Admin: 03/03/22 08:44 Dose: 40 mg Documented by: [id number] Description This is a 21 electrode EEG with a single channel dedicated to limited EKG. The electrodes were placed in accordance with the International 10-20 system. Report: At the onset of the EEG the patient is in an altered mental state. The background is symmetric and disorganized. Is a loss of a normal anterior to posterior gradient. The posterior dominant rhythm is not well seen. The background predominantly consist of: 3 to 5 Hz theta delta activity with superimposed myogenic artifact. During the EEG the patient is moving her head and arms at times creating myogenic artifact. At times there are broad-based frontally predominant triphasic appearing sharp waves. Photic stimulation does not induce any additional abnormalities. No stage II sleep transients are seen. Interpretation Impression: This is an abnormal routine EEG in a patient with altered mentation due to 1. Generalized background slowing suggestive of a nonspecific encephalopathy, 2. Intermittent broad-based frontally predominant triphasic appearing sharp waves are nonspecific although often seen in metabolic encephalopathies (i.e. renal or hepatic). No electrographic seizures are seen.
[2022-03-05] MEDS ORDERED: Heparin IV Adult Wt-Based Standard *NO* Bolus Protocol IV SCH (17:00)
[2022-03-05] MEDS: HEPARIN SODIUM/DEXTROSE 25,000 UNITS/500 ML BAG IV SCH (18:22)
--- NOTE | 2022-03-05 19:01 | Surgery Consultation ---
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 and significant non revascularizable( in my opinion) right lower extremity ands virtually non ambulatory she will eventually need right a-k amputation for now i would recommend full heparinization since ct scan head neg i would also get carotid doppler this was discussed with Guido Laura Md History of Present Illness Reason for Consultation: pain right leg Requesting Physician: Guido Laura Md Attending Physician: Guido Laura MD History of Present Illness data up to this point reviewed Allergies Allergy/AdvReac Type Severity Reaction Status Date / Time fluticasone Allergy Severe WATER ON Verified 03/02/22 17:13 LUNGS salmeterol Allergy Severe WATER ON Verified 03/02/22 17:13 LUNGS propoxyphene Allergy Mild FROM Verified 03/02/22 17:13 DARVOCET benzocaine Allergy Unknown Unknown Verified 03/02/22 17:13 mold Allergy Unknown Unknown Verified 03/02/22 17:13 acetaminophen [From Vicodin] AdvReac Intermediate hallucinati Verified 03/02/22 17:13 ons hydrocodone [From Vicodin] AdvReac Intermediate hallucinati Verified 03/02/22 17:13 ons oxycodone AdvReac Intermediate Hallucinati Verified 03/02/22 17:13 ng prednisone AdvReac Intermediate HYPERGLYCEM Verified 03/02/22 17:13 IA Home Medications Medication Instructions Recorded Confirmed Type aspirin 81 mg tablet,delayed 81 mg PO DAILY 10/01/19 03/02/22 History release carvedilol 12.5 mg tablet 12.5 mg PO BID 10/01/19 03/02/22 History clopidogrel 75 mg tablet 75 mg PO DAILY 10/01/19 03/02/22 History cyanocobalamin (vitamin B-12) 100 100 mcg PO DAILY 10/01/19 03/02/22 History mcg tablet loratadine 10 mg tablet 10 mg PO DAILY 10/01/19 03/02/22 History montelukast 10 mg tablet 10 mg PO DAILY 10/01/19 03/02/22 History multivitamin with minerals 1 tab PO DAILY 10/01/19 03/02/22 History (Multiple Vitamin-Minerals) budesonide 32 mcg/actuation nasal 2 spray INTRANASAL DAILY 09/22/21 03/02/22 History spray diclofenac sodium 1 % topical gel 4 g TOPICAL QID 09/22/21 03/02/22 History dulaglutide 3 mg/0.5 mL 3 mg SUBCUT WK 09/22/21 03/02/22 History subcutaneous pen injector (Trulicity) furosemide 40 mg tablet 40 mg PO QAM 09/22/21 03/02/22 History insulin aspart U-100 100 unit/mL 10 unit SUBCUT TID 09/22/21 03/02/22 History (3 mL) subcutaneous pen (Novolog Flexpen U-100 Insulin aspart) rosuvastatin 40 mg tablet 40 mg PO DAILY 09/22/21 03/02/22 History acetaminophen 325 mg tablet 650 mg PO TID PRN #180 tab 10/21/21 03/02/22 Rx gabapentin 100 mg capsule 100 mg PO BID #60 cap 10/21/21 03/02/22 Rx insulin glargine 100 unit/mL (3 50 unit SUBCUT BID #0 ml 10/21/21 03/02/22 Rx mL) subcutaneous pen (Lantus Solostar U-100 Insulin) albuterol sulfate 2.5 mg INHALATION Q6H PRN #75 ml 02/20/22 03/02/22 Rx losartan 100 mg tablet 100 mg PO DAILY 02/20/22 03/02/22 History magnesium 100 mg tablet 100 mg PO DAILY 02/20/22 03/02/22 History potassium gluconate 550 mg (90 mg) 550 mg PO DAILY 02/20/22 03/02/22 History tablet Saccharomyces boulardii 250 mg 250 mg PO BID 03/02/22 03/02/22 History capsule clindamycin HCl 300 mg capsule 300 mg PO QID 03/02/22 03/02/22 History morphine 15 mg tablet,extended 15 mg PO BID PRN 03/02/22 03/02/22 History release tramadol 50 mg tablet 50 mg PO Q8 PRN 03/02/22 03/02/22 History Patient History Medical History Asthma CKD (chronic kidney disease), stage III Combined congestive systolic and diastolic heart failure Complete heart block (06/14/14) Diabetes mellitus, type II Diabetes mellitus, type II, insulin dependent Dyslipidemia Excessive daytime sleepiness Granulomatous interstitial lung disease HTN (hypertension) Morbid obesity due to excess calories Nonischemic cardiomyopathy Pacemaker Physical deconditioning PVD (peripheral vascular disease) Sleep apnea Surgical History H/O tubal ligation History of cardiac cath 2014 - normal coronary arteries; Dr Jorgensen at [facility] History of carpal tunnel release History of cataract removal with insertion of prosthetic lens History of revascularization procedure of lower extremity fem/pop artery revascularization RLE; 09/2017; Dr Gill at [facility] History of total knee arthroplasty 2005; bilateral Family History Mother Leukemia Son Asthma Brother Stroke Social History Smoking Status: Never smoker Second Hand Exposure: No; Hx Alcohol Use: No Hx Substance Use: No Preferred Language: Sinhala Communication Ability: Effective [employer] Required: No Beliefs That Will Affect Care: None marital status: Current Living Situation: Spouse Other Information That Helps Us Care for You: No Feels Safe at Home: Yes Safety Concerns: Feels Safe At This Time Assistive Devices: Cane, Oxygen - at Night, Walker and Wheelchair Results & Data ([facility]) Vital Signs (Past 12 Hours) Vital Signs Temp Pulse Pulse Resp BP Pulse Ox 03/05/22 15:30 36.7 C 113 H 22 106/46 L 97 03/05/22 11:42 36.6 C 85 18 115/51 L 93 03/05/22 08:00 80 PG Care Time/CCT Total # of Minutes Spent Total Time Spent with Patient: Total time spent is greater than 50% in coordination of care (as documented) at patient's floor/unit and/or counseling patient: Coding Level of Care Code 49168 Inpt Consult Level 2 Diagnoses Cellulitis of right leg L03.115
[2022-03-05] MEDS: DAPTOmycin 450 MG in SYRINGE 0 ML IV SCH (19:50)
--- NOTE | 2022-03-05 21:07 | Ultrasound Report ---
ULTRASOUND OF THE CAROTID ARTERIES CLINICAL HISTORY: ams, vasculopath COMPARISON: None available at the time of this dictation. TECHNIQUE: Real-time, grayscale, and color Doppler sonography of the carotid arteries is performed. I mages are reviewed in the transverse and longitudinal planes. FINDINGS: Exam is limited by patient cooperation. The carotid arteries are patent bilaterally and demonstrate a ntegrade flow. There is minimal atherosclerotic plaque on the right and minimal atherosclerotic plaqu e on the left. Normal doppler arterial waveforms are seen throughout. Velocity measurements are liste d below. Common carotid peak systolic velocity (cm/sec): RIGHT: 98 LEFT: 102 ICA peak systolic velocity (cm/sec): RIGHT: 116 LEFT: 161 ICA/CC peak systolic ratio: RIGHT: 1.18 LEFT: 1.5 Antegrade flow was shown in the vertebral arteries. The external carotid arteries are patent. IMPRESSION: 1. There is no sonographic evidence of hemodynamically significant stenosis in the right or left car otid arterial system. 2. Antegrade flow is shown in the vertebral arteries. Society of Radiologists in Ultrasound consensus guidelines: Normal: ICA PSV is <125 cm/sec and no plaque or intimal thickening is visible sonographically additional criteria include ICA/CCA PSV ratio <2.0 and ICA EDV <40 cm/sec <50% ICA stenosis: ICA PSV is <125 cm/sec and plaque or intimal thickening is visible sonographically additional criteria include ICA/CCA PSV ratio <2.0 and ICA EDV <40 cm/sec 50-69% ICA stenosis: ICA PSV is 125-230 cm/sec and plaque is visible sonographically additional criteria include ICA/CCA PSV ratio of 2.0-4.0 and ICA EDV of 40-100 cm/sec ?70% ICA stenosis but less than near occlusion: ICA PSV is >230 cm/sec and visible plaque and luminal narrowing are seen at guerrero-scale and color Dopp ler ultrasound (the higher the Doppler parameters lie above the threshold of 230 cm/sec, the greater the likelihood of severe disease) additional criteria include ICA/CCA PSV ratio >4 and ICA EDV >100 cm/sec ACT 112: Negative or not required by law. Electronically signed by: Mahesh Evans M.D. 03/05/2022 9:06 PM
[2022-03-06 01:38] LABS: Partial Thromboplastin Ratio 2.9
[2022-03-06 02:00] LABS: Partial Thromboplastin Time 78.6 Seconds (21.0-31.0)
[2022-03-06] MEDS: ACETAMINOPHEN 1,000 MG/100 ML VIAL IV SCH ×2 (06:15→14:30)
[2022-03-06] MEDS: ACETAMINOPHEN 500 MG TAB PO SCH (06:20)
[2022-03-06] MEDS: ALBUMIN 25% 100 mL 25 GM/100 ML VIAL IV SCH (07:30)
[2022-03-06] MEDS: INSULIN ASPART PER UNIT SC SCH ×2 (07:47→11:43)
[2022-03-06 07:59] LABS: Hematocrit (blood only) 31.1 % (34.1-44.9); Hemoglobin 9.7 g/dl (12.0-16.0); Mean Corpuscular Hemoglobin 30.8 pg (25.0-34.0); Mean Corpuscular Hgb Conc 31.2 g/dL (32.0-36.0); Mean Corpuscular Volume 98.7 fL (80.0-100.0); Platelet Count 244 K/uL (130-400); RDW Coefficient of Variation 19.2 % (11.5-14.5); Red Blood Count 3.15 M/uL (3.93-5.22)
[2022-03-06] MEDS: PIPERACILLIN/TAZOBACTAM 4.5 GM in DEXTROSE 5% 100 ML IV SCH (08:04)
[2022-03-06 08:25] LABS: Partial Thromboplastin Ratio 3.2
[2022-03-06 08:28] LABS: Partial Thromboplastin Time 89.2 Seconds (21.0-31.0)
[2022-03-06 08:46] LABS: BUN Creatinine Ratio 14.8 (10-20); Calcium 9.4 mg/dl (8.5-10.1); Creatinine Clr Calc Pharmacy 33.5 ml/min; Est GFR (African American) 35.4 ml/min; Est GFR (Non-African American) 30.5 ml/min; Magnesium 2.2 mg/dl (1.7-2.4); Phosphorus 3.3 mg/dl (2.5-4.9); Potassium 5.1 mmol/L (3.5-5.1)
[2022-03-06] MEDS: ASPIRIN 81 MG ECTAB PO SCH (09:18)
[2022-03-06] MEDS: CLOPIDOGREL BISULFATE 75 MG TAB PO SCH (09:18)
[2022-03-06] MEDS: carvediloL 12.5 MG TAB PO SCH (09:18)
[2022-03-06] MEDS: CYANOCOBALAMIN (B-12) 100 MCG TABLET PO SCH (09:18)
[2022-03-06] MEDS: DICLOFENAC SOD 1% GEL 100 GM TUBE EXT SCH ×2 (09:18→11:43)
[2022-03-06] MEDS: CEROVITE ADV FORMULA TAB PO SCH (09:19)
[2022-03-06] MEDS: SACCHAROMYCES BOULARDII 250 MG CAP PO SCH (09:19)
[2022-03-06] MEDS: LANTUS PER UNIT CHARGE SQ SCH (09:19)
[2022-03-06] MEDS: MONTELUKAST SODIUM 10 MG TABLET PO SCH (09:19)
[2022-03-06] MEDS: MAGNESIUM OXIDE 400 MG TAB PO SCH (09:19)
[2022-03-06] MEDS: LORATADINE 10 MG TAB PO SCH (09:19)
--- NOTE | 2022-03-06 12:47 | Neurology Progress Note ---
Date of Service March 06, 2022 Assessment & Plan (1) Encephalopathy: Plan: A 76 year old woman with ischemic right lower extremity / osteomyelitis with encephalopthy Vs delirium. Mentation appears mildly improved from yesterday. She is tracking today with no clear signs of neglect. Following simple commands. Remains non verbal. Plan to transfer today to [facility] for right lower extremity evaluation. Would recommend repeat EEG if mentation does not continue to improve. (2) Delirium: Admission and Anticipated Discharge Date Admission Date: March 02, 2022 Subjective Patient was seen and examined. at bedside. She is in restraints. Mentation mildly improved but remains very altered. Non verbal. Tracks and opens eyes to voice. Smiles at . Physical Exam Physical Exam: Appears acutely ill. Obese female. In restraints. Wakes to voice. Non verbal. Face symmetric. Non verbal. Following simple commands. Tongue midline. Eyes cross midline. Moving hands to command. Results & Data ([facility]) Vital Signs (Past 12 Hours) Vital Signs Temp Pulse Pulse Resp BP BP Pulse Ox 03/06/22 11:53 37.1 C 92 H 14 133/67 133/67 96 03/06/22 08:00 88 03/06/22 07:47 36.7 C 109 H 18 131/45 L 96
--- NOTE | 2022-03-06 14:14 | Hospitalist Progress Note ---
Date of Service March 06, 2022 Assessment & Plan (1) Fall: (2) Weakness: (3) Scalp laceration: (4) Cellulitis of right leg: (5) Diabetes mellitus, type II: (6) Combined congestive systolic and diastolic heart failure: (7) CKD (chronic kidney disease), stage III: (8) Complete heart block: (9) Pacemaker: (10) Sleep apnea: Plan: This is a 76yo F with a PMH of uncontrolled DM II, asthma, severe sleep apnea on 3L NC HS, combined systolic and diastolic heart failure, h/o complete heart block s/p pacemaker placement, LBBB, PVD, CKD III, dyslipidemia, morbid obesity and other medical problems as below who presents from home after fall. Fall Generalized weakness Scalp laceration Recently discharged from 5 months in [facility], minimal ambulatory ability at baseline CT head, CT cervical spine and pelvis XR without evidence of acute injury Scalp laceration repaired in ED. No headache on admission Fall precautions, PT/OT evaluation Positive confusion, likely encephalopathy from underlying infection, ELOY on CKD stage III, rule out intracranial bleed Repeat CT head stat - negative Blood cultures, urine cultures pending IV daptomycin plus Zosyn Management of ELOY per below Transferred to PCU ABG - obtained Given altered mental status,/encephalopathy, not improving, consulted neurology Per neurology, patient may have hospital acquired delirium in the setting of infection/ELOY EEG obtained (03/05/2022) This is an abnormal routine EEG in a patient with altered mentation due to 1. Generalized background slowing suggestive of a nonspecific encephalopathy, 2. Intermittent broad-based frontally predominant triphasic appearing sharp waves are nonspecific although often seen in metabolic encephalopathies (i.e. renal or hepatic). No electrographic seizures are seen. Per neurology, it is recommended that if her mental status does not improve, she should have continuous 24-hour EEG RLE cellulitis Severe peripheral artery disease Possible osteomyelitis Completed course of Augmentin prescribed in ER, then was prescribed 10d course of Clindamycin on 02/[address] Jones (PCP), continue probiotics Venous doppler without evidence of DVT. Arterial Doppler ordered to evaluate for component of PAD IMPRESSION: 1. Nonvisualization of flow to the arteries of the right calf. Extensive atherosclerotic calcification is present. 2. Nonvisualization of flow to the peroneal artery on the left. Again extensive atherosclerotic calcification is present. 3. Increased flow velocity involving the left proximal popliteal artery characteristic of focal stenosis. 4. Monophasic flow throughout both lower extremities related to diffuse atherosclerotic disease. R Foot Xray (03/03/22) IMPRESSION: Apparent erosion of the plantar calcaneal spur. This may reflect acute osteomyelitis and could be correlated with site of wound. Pain control Antibiotics and cultures per above Given above findings, vascular surgery was consulted. Unfortunately Dr. Machuca not available this week in the hospital. Previous provider Discussed with vascular surgery in [place] Dr. Plummer, recommend transfer to [place] when bed available Continued IV Dapto plus Zosyn while here However patient was not able to be transferred due to bed availability I consulted with another surgeon, Dr. Rivera today (03/05/22) who was not able to see the patient, but able to review her studies - will start IV heparin (I also discussed with neurology if IV heparin would be okay given her fall. She had 3 CT heads obtained, all negative for bleed) DM II December 2021 a1c much improved at 7.9 (from 13) Basal/bolus regimen while in-patient BSG AC HS Combined systolic and diastolic heart failure Slight increase in edema in BLE. Transition to IV Lasix 40mg IV for now / further diuretics per nephro No CP, SOB or weight gain Repeat CXR slightly improved pulm. edema Daily weights, strict intake and output, low sodium diet Acute on chronic CKD Cr 1.6 down from 2.4, due to ATN (baseline ~ 1.7-1/8). Hold losartan for now. Avoid nephrotoxic agents as able. Repeat BMP daily [employer] consulted, appreciate their input Monitor closely while on IV Lasix albumin also given Complete heart block s/p pacemaker placement ISAIAS 3L NC O2 HS DVT Ppx: SQ heparin Code status: FULL PCP: Robert Dispo: Transfer to [facility] when bed available plan of care discussed with patient's at the bedside in detail and at length he is understanding, agreeable, comfortable with the plan of care Admission and Anticipated Discharge Date Admission Date: March 02, 2022 Subjective Follow-up for right lower extremity cellulitis, wounds, PAD, poss. osteomyelitis, acute kidney injury, encephalopathy / ?delirium Mental status worsening since being admitted Currently resting in bed, on 2 L of oxygen Not in acute respiratory distress She opens her eyes, however she does not answer much Moves extremities, no focal neurologic deficits noted Started IV heparin for PAD, and patient also seen by neurology given her altered mental status. EEG obtained. Patient to be transferred to [facility] today Patient's at the bedside, updated Review of Systems Review of Systems: All systems reviewed & are unremarkable except as noted in Subjective Physical Exam Physical Exam: General-elderly obese female, in no acute distress, on 2 L of oxygen, confused Head - occipital scalp laceration Eyes- PERRL, EOMI, anicteric ENT- oropharynx clear Neck- supple Lungs- clear to auscultation bilaterally, no rales/wheezes Heart- normal rate, regular rhythm; no murmur Abdomen- normal bowel sounds, obese, nondistended, soft, nontender Extremities- Right lower leg: Positive erythema from mid calf down Warm to touch Poor pulses Positive scabbed wounds over the great big toe, second toe, fourth toe, heel Neuro- able to open her eyes to voice/command, however does not answer appropriately. Moves extremities Skin- warm & dry Results & Data Results & Data ([facility]) Vital Signs (Past 12 Hours) Vital Signs Temp Pulse Pulse Resp BP BP Pulse Ox 03/06/22 11:53 37.1 C 92 H 14 133/67 133/67 96 03/06/22 08:00 88 03/06/22 07:47 36.7 C 109 H 18 131/45 L 96 Laboratory Results 03/06/22 03/06/22 03/06/22 Range/Units 11:41 07:50 07:50 WBC 9.10 (4.8-10.8) K/ul RBC 3.15 L (3.93-5.22) M/uL Hgb 9.7 L (12.0-16.0) g/dl Hct 31.1 L (34.1-44.9) % MCV 98.7 (80.0-100.0) fL MCH 30.8 (25.0-34.0) pg MCHC 31.2 L (32.0-36.0) g/dL RDW Std Deviation 71.0 H (36.4-46.3) fL RDW Coeff of Javier 19.2 H (11.5-14.5) % Plt Count 244 (130-400) K/uL MPV 9.0 L (9.4-12.3) fL APTT 89.2 H* (21.0-31.0) Seconds PTT Ratio 3.2 Sodium (136-145) mmol/L Potassium (3.5-5.1) mmol/L Chloride (98-107) mmol/L Carbon Dioxide (21-32) mmol/L Anion Gap (3-11) BUN (6-23) mg/dl Creatinine (0.6-1.2) mg/dl Est Cr Clr Drug Dosing ml/min Est GFR ( Amer) ml/min Est GFR (Non-Af Amer) ml/min BUN/Creatinine Ratio (10-20) Glucose (70-99(Fasting)) mg/dl POC Glucose 125 H (70-99) mg/dl Calcium (8.5-10.1) mg/dl Phosphorus (2.5-4.9) mg/dl Magnesium (1.7-2.4) mg/dl Total Creatine Kinase (26-192) U/L 03/06/22 03/06/22 03/06/22 Range/Units 07:50 07:21 00:15 WBC (4.8-10.8) K/ul RBC (3.93-5.22) M/uL Hgb (12.0-16.0) g/dl Hct (34.1-44.9) % MCV (80.0-100.0) fL MCH (25.0-34.0) pg MCHC (32.0-36.0) g/dL RDW Std Deviation (36.4-46.3) fL RDW Coeff of Javier (11.5-14.5) % Plt Count (130-400) K/uL MPV (9.4-12.3) fL APTT 78.6 H* (21.0-31.0) Seconds PTT Ratio 2.9 Sodium 138 (136-145) mmol/L Potassium 5.1 (3.5-5.1) mmol/L Chloride 102 (98-107) mmol/L Carbon Dioxide 31 (21-32) mmol/L Anion Gap 5 (3-11) BUN 24 H (6-23) mg/dl Creatinine 1.62 H D (0.6-1.2) mg/dl Est Cr Clr Drug Dosing 33.5 ml/min Est GFR ( Amer) 35.4 ml/min Est GFR (Non-Af Amer) 30.5 ml/min BUN/Creatinine Ratio 14.8 (10-20) Glucose 117 H (70-99(Fasting)) mg/dl POC Glucose 111 H (70-99) mg/dl Calcium 9.4 (8.5-10.1) mg/dl Phosphorus 3.3 D (2.5-4.9) mg/dl Magnesium 2.2 (1.7-2.4) mg/dl Total Creatine Kinase 46 (26-192) U/L 03/05/22 03/05/22 03/05/22 Range/Units 21:07 18:41 16:09 WBC (4.8-10.8) K/ul RBC (3.93-5.22) M/uL Hgb (12.0-16.0) g/dl Hct (34.1-44.9) % MCV (80.0-100.0) fL MCH (25.0-34.0) pg MCHC (32.0-36.0) g/dL RDW Std Deviation (36.4-46.3) fL RDW Coeff of Javier (11.5-14.5) % Plt Count (130-400) K/uL MPV (9.4-12.3) fL APTT (21.0-31.0) Seconds PTT Ratio Sodium (136-145) mmol/L Potassium (3.5-5.1) mmol/L Chloride (98-107) mmol/L Carbon Dioxide (21-32) mmol/L Anion Gap (3-11) BUN (6-23) mg/dl Creatinine (0.6-1.2) mg/dl Est Cr Clr Drug Dosing ml/min Est GFR ( Amer) ml/min Est GFR (Non-Af Amer) ml/min BUN/Creatinine Ratio (10-20) Glucose (70-99(Fasting)) mg/dl POC Glucose 92 83 78 (70-99) mg/dl Calcium (8.5-10.1) mg/dl Phosphorus (2.5-4.9) mg/dl Magnesium (1.7-2.4) mg/dl Total Creatine Kinase (26-192) U/L Medications Administered Current Inpatient Medications Acetaminophen (Acetaminophen 500 Mg Tab) 1,000 mg PO Q12H JEY Stop: 08/05/22 18:59 Last Admin: 03/06/22 06:20 Dose: Not Given Documented by: Albuterol (Albuterol 0.083% Nebu Soln 3 Ml Vial) 2.5 mg INH Q6H PRN; Protocol PRN Reason: shortness of breath or wheezing Stop: 04/01/22 21:19 Aspirin (Aspirin 81 Mg Ectab) 81 mg PO DAILY JEY Stop: 04/02/22 08:59 Last Admin: 03/06/22 09:18 Dose: Not Given Documented by: Carvedilol (Carvedilol 12.5 Mg Tab) 12.5 mg PO BID JEY Stop: 04/01/22 21:19 Last Admin: 03/06/22 09:18 Dose: Not Given Documented by: Clopidogrel Bisulfate (Clopidogrel Bisulfate 75 Mg Tab) 75 mg PO DAILY JEY Stop: 04/02/22 08:59 Last Admin: 03/06/22 09:18 Dose: Not Given Documented by: Cyanocobalamin (Cyanocobalamin (B-12) 100 Mcg Tablet) 100 mcg PO DAILY JEY Stop: 04/02/22 08:59 Last Admin: 03/06/22 09:18 Dose: Not Given Documented by: Dextrose (Dextrose 50% 50 Ml Syringe) 25 - 50 ml IV UD PRN; Protocol PRN Reason: Hypoglycemia Protocol Stop: 04/01/22 21:19 Dextrose (Dextrose 50% 50 Ml Syringe) 25 - 50 ml IV UD PRN; Protocol PRN Reason: Hypoglycemia Protocol Stop: 04/01/22 21:44 Diclofenac Sodium (Diclofenac Sod 1% Gel 100 Gm Tube) 4 gm EXT QID JEY; Protocol Stop: 04/01/22 21:19 Last Admin: 03/06/22 11:43 Dose: 4 gm Documented by: Furosemide (Furosemide 40 Mg/4 Ml Vial) 40 mg IV DAILY JEY Stop: 04/02/22 08:59 Last Admin: 03/04/22 11:47 Dose: Not Given Documented by: Gabapentin (Gabapentin 100 Mg Cap) 100 mg PO BID JEY Stop: 04/01/22 21:19 Last Admin: 03/04/22 21:34 Dose: 100 mg Documented by: Glucagon (Glucagon For Inj 1 Mg Vial) 1 mg SQ UD PRN; Protocol PRN Reason: Hypoglycemia Protocol Stop: 04/01/22 21:19 Glucagon (Glucagon For Inj 1 Mg Vial) 1 mg IM UD PRN; Protocol PRN Reason: Hypoglycemia Protocol Stop: 04/01/22 21:44 Glucose (Glucose 10 Tabs/Tube) 4 - 8 tabs PO UD PRN; Protocol PRN Reason: Hypoglycemia Protocol Stop: 04/01/22 21:19 Glucose (Glucose 40% Gel 15 Gm Tube) 15 - 30 gm PO UD PRN; Protocol PRN Reason: Hypoglycemia Protocol Stop: 04/01/22 21:19 Glucose (Glucose 40% Gel 15 Gm Tube) 15 - 30 gm PO UD PRN; Protocol PRN Reason: Hypoglycemia Protocol Stop: 04/01/22 21:44 Glucose (Glucose 10 Tabs/Tube) 4 - 8 tabs PO UD PRN; Protocol PRN Reason: Hypoglycemia Protocol Stop: 04/01/22 21:44 Hydromorphone HCl (Hydromorphone Inj 0.5 Mg/0.5 Ml Syr) 0.5 mg IV Q4H PRN PRN Reason: Pain Stop: 03/17/22 23:27 Last Admin: 03/03/22 23:44 Dose: 0.5 mg Documented by: Piperacillin Sod/Tazobactam (Sod 4.5 gm/ Dextrose) 120 mls @ 30 mls/hr IV Q8H [facility]; Protocol Stop: 03/11/22 00:59 Last Infusion: 03/06/22 12:12 Dose: Infused Documented by: Acetaminophen (Ofirmev) 1,000 mg in 100 mls @ 400 mls/hr IV Q8H [facility] Stop: 03/07/22 14:14 Last Infusion: 03/06/22 06:49 Dose: Infused Documented by: Albumin Human (Albumin 25% 100 Ml) 25 gm in 100 mls @ 50 mls/hr IV Q8H [facility] Stop: 03/07/22 16:14 Last Infusion: 03/06/22 09:45 Dose: Infused Documented by: Heparin Sodium/Dextrose (Heparin Sodium/Dextrose) 25,000 units in 500 mls @ 22 mls/hr IV .[id number] [facility]; Protocol Stop: 04/04/22 17:14 Last Titration: 03/06/22 09:31 Dose: 1,100 units/hr, 22 mls/hr Documented by: Daptomycin 450 mg/ Syringe 9 mls @ 4.5 mls/min IV DAILY@1999 [facility]; Protocol Stop: 03/10/22 19:59 Insulin Aspart (Insulin Aspart Per Unit) 0 units SC ACHS [facility] Stop: 04/01/22 21:19 Last Admin: 03/06/22 11:43 Dose: Not Given Documented by: Insulin Glargine (Lantus Per Unit Charge) 0 units SQ BID [facility] Stop: 04/01/22 21:19 Last Admin: 03/06/22 09:19 Dose: Not Given Documented by: Loratadine (Loratadine 10 Mg Tab) 10 mg PO DAILY [facility] Stop: 04/02/22 08:59 Last Admin: 03/06/22 09:19 Dose: Not Given Documented by: Magnesium Oxide (Magnesium Oxide 400 Mg Tab) 200 mg PO DAILY [facility] Stop: 04/02/22 08:59 Last Admin: 03/06/22 09:19 Dose: Not Given Documented by: Miscellaneous (Budesonide Aq: Order Awaiting Action) 1 ea N/A QS [facility] Stop: 04/02/22 07:59 Last Admin: 03/06/22 09:18 Dose: Not Given Documented by: Miscellaneous (Carbohydrates For Hypoglycemia ) 15 - 30 gm PO UD PRN PRN Reason: Hypoglycemia Protocol Stop: 04/01/22 21:19 Miscellaneous (Carbohydrates For Hypoglycemia ) 15 - 30 gm PO UD PRN PRN Reason: Hypoglycemia Treatment Stop: 04/01/22 21:44 Montelukast Sodium (Montelukast Sodium 10 Mg Tablet) 10 mg PO DAILY [facility] Stop: 04/02/22 08:59 Last Admin: 03/06/22 09:19 Dose: Not Given Documented by: Morphine Sulfate (Morphine Sulfate Cr 15 Mg Tabcr) 15 mg PO BID [facility] Stop: 03/16/22 21:19 Last Admin: 03/04/22 21:37 Dose: 15 mg Documented by: Multivitamins/Minerals (Cerovite Adv Formula Tab) 1 tab PO DAILY [facility] Stop: 04/02/22 08:59 Last Admin: 03/06/22 09:19 Dose: Not Given Documented by: Olanzapine (Olanzapine 10 Mg/2.1 Ml Sdv) 2.5 mg IM Q4H PRN PRN Reason: Anxiety/Agitation Stop: 04/03/22 23:41 Ondansetron HCl (Ondansetron Inj 2 Mg/Ml 2 Ml Vial) 4 mg IV Q6H PRN PRN Reason: Nausea Stop: 04/01/22 21:19 Last Admin: 03/05/22 14:19 Dose: 4 mg Documented by: Oxycodone HCl (Oxycodone Hcl Ir 5 Mg Tab (Immediate Release)) 5 mg PO Q4H PRN PRN Reason: Pain Stop: 03/17/22 23:29 Polyethylene Glycol (Polyethylene (Miralax) 17 Gm Pack) 17 gm PO DAILY PRN PRN Reason: Constipation Stop: 04/01/22 21:19 Saccharomyces Boulardii (Saccharomyces Boulardii 250 Mg Cap) 250 mg PO BID JEY Stop: 04/01/22 21:19 Last Admin: 03/06/22 09:19 Dose: Not Given Documented by: (1) Fall Encounter type: initial encounter Qualified Code(s): W19.XXXA - Unspecified fall, initial encounter
--- NOTE | 2022-03-06 14:25 | Discharge Summary ---
Date of Service March 06, 2022 Admission HPI Per Admitting Provider This is a 76yo F with a PMH of uncontrolled DM II, asthma, severe sleep apnea on 3L NC HS, combined systolic and diastolic heart failure, h/o complete heart block s/p pacemaker placement, LBBB, PVD, CKD III, dyslipidemia, morbid obesity and other medical problems as below who presents from home after fall. Fell out of bed this morning when reaching for phone and hit her head. Denies LOC. Feeling generally weak. Has been at [facility] for rehab for 5 months following admission at the beginning of the year following periprosthetic knee fracture. Was discharged home from SNF 10 days ago. Since then, presented to ER for RLE wounds and was prescribed Augmentin in ER that she has completed. Wound continued to look worse and patient was prescribed Clindamycin for 10 days, which patient began on February 26. States wound appearance has improved. Per Dr. Jones's recent note, patient's overall health has been declining in large part due to uncontrolled diabetes. Can ambulate a few steps and has a wheelchair at home as well. Denies fever, chills, chest pain, SOB, nausea, vomiting, abdominal pain, dysuria, diarrhea or constipation. Pain currently 2/10 in RLE following morphine dose. Has not taken medications today. Admission Exam Per Admitting Provider General Appearance:Morbidly Obese, no apparent distress Head: normocephalic, +traumatic: Occipital scalp laceration Eyes: normal inspection, EOMI Neck: supple, Trachea midline Respiratory/Chest: Normal breath sounds, CTA, No accessory muscle use Cardiovascular: S1, S2, No murmur Abdomen/GI:Soft, Non tender, Bowel sounds present Extremities/Musculoskeletal:normal inspection, B/L LE 2+ edema, ulcers on right foot with mild erythema of right lower extremity. Fourth toe necrotic ulceration noted as well. Neurologic/Psych:AAOX3, grossly no focal neurological deficits Skin: normal color, warm Principal Diagnosis Right lower extremity cellulitis, possible osteomyelitis, PAD ELOY Encephalopathy/? Delirium DM type II Discharge Exam General-elderly obese female, in no acute distress, on 2 L of oxygen, confused Head - occipital scalp laceration Eyes- PERRL, EOMI, anicteric ENT- oropharynx clear Neck- supple Lungs- clear to auscultation bilaterally, no rales/wheezes Heart- normal rate, regular rhythm; no murmur Abdomen- normal bowel sounds, obese, nondistended, soft, nontender Extremities- Right lower leg: Positive erythema from mid calf down Warm to touch Poor pulses Positive scabbed wounds over the great big toe, second toe, fourth toe, heel Neuro- able to open her eyes to voice/command, however does not answer appropriately. Moves extremities Skin- warm & dry Discharge Data Allergies Allergy/AdvReac Type Severity Reaction Status Date / Time fluticasone Allergy Severe WATER ON Verified 03/02/22 17:13 LUNGS salmeterol Allergy Severe WATER ON Verified 03/02/22 17:13 LUNGS propoxyphene Allergy Mild FROM Verified 03/02/22 17:13 DARVOCET benzocaine Allergy Unknown Unknown Verified 03/02/22 17:13 mold Allergy Unknown Unknown Verified 03/02/22 17:13 acetaminophen [From Vicodin] AdvReac Intermediate hallucinati Verified 03/02/22 17:13 ons hydrocodone [From Vicodin] AdvReac Intermediate hallucinati Verified 03/02/22 17:13 ons oxycodone AdvReac Intermediate Hallucinati Verified 03/02/22 17:13 ng prednisone AdvReac Intermediate HYPERGLYCEM Verified 03/02/22 17:13 IA Consultations 03/02/22 16:42 ED Decision to Admit Stat 03/03/22 09:11 Consult Nephrology Routine 03/03/22 09:14 Consult Vascular Surgery Routine 03/04/22 22:05 Consult Neurology Routine 03/04/22 23:10 Consult Yard Goods Salesperson Routine Ordered Studies 03/02/22 11:35 CT cervical spine wo con Stat FINDINGS: Skeletal structures: The skeletal structures are osteopenic. There is no evidence of fracture or subluxation involving the cervical spine. Vertebral body height is maintained. There is minimal anterolisthesis at C5-C6. Alignment is otherwise preserved. There is straightening of the cervical lordosis. Anterior osteophytes are seen throughout. The odontoid process and lateral masses are intact. The atlantoaxial articulation is preserved noting productive dege nerative change. The spinous processes appear intact. There is mild to moderate multilevel cervical spondylosis. Uncovertebral and facet arthropathy contribute to neural foraminal narrowing at several levels. Intervertebral discs: There is mild multilevel degenerative disc space narrowing. Central canal: Large posterior disc osteophyte complexes are seen at all cervical levels between C3-C4 and C6-C7. This likely contributes to multilevel acquired compromise of the central canal. Soft tissues: The prevertebral and paraspinous soft tissues are within normal limits. There is atherosclerotic calcification of the carotid bulbs. Pacemaker leads are noted at the left thoracic inlet. Calvarium: The visualized calvarium at the skull base appears intact. Brain parenchyma: Partially visualized brain parenchyma at the skull base is within normal limits. Sinuses and mastoids: Trace mucosal thickening is noted in the maxillary antra. The mastoid air cells are well pneumatized. Lung apices: Clear as visualized. IMPRESSION: 1. There is no evidence of fracture or subluxation involving the cervical spine. 2. Osteopenia and spondylotic change as above. CT head/brain wo con Stat FINDINGS: Extraaxial space: There is no evidence for subdural hematoma. There are no extra-axial fluid collections. Ventricles and cisterns: The ventricles are mildly dilated bilaterally. There is no evidence for midline shift or mass effect. Parenchyma: There is no subarachnoid or intraparenchymal hemorrhage. There is no evidence for an acute infarct or cerebral edema. There is mild cerebral cortical atrophy and decreased attenuation in the periventricular white matter representing remote small vessel disease. There are no gross mass lesions. Osseous structures: There is no evidence for an acute fracture. There is mild asymmetric mucosal thickening involving the left maxillary antrum. The remaining visualized paranasal sinuses are clear. The mastoid air cells are clear bilaterally. Soft tissues: There is no evidence for focal soft tissue swelling. IMPRESSION: 1. No acute intracerebral pathology. 2. Mild cerebral cortical atrophy and remote small vessel disease. 3. Mild chronic left maxillary sinusitis. US venous doppler LE RT Stat FINDINGS: Normal flow, compressibility, phasicity and augmentation. IMPRESSION: No sonographic evidence of deep venous thrombosis. 03/02/22 17:17 US arterial duplex LE BI Urgent FINDINGS: Louis scale, Doppler spectral analysis, and color imaging performed. The study is limited as the vessels are very calcified throughout both lower extremities. Right common femoral artery: Monophasic flow velocity. 81 Right profunda femoris artery: Monophasic flow velocity. 81 Right superficial femoral artery: Monophasic flow velocity. 63 Right popliteal artery: Monophasic flow velocity. 41 Right posterior tibial artery: Unable to visualize. Right anterior tibial artery: Unable to visualize. Right dorsalis pedis artery: Unable to visualize Right peroneal artery: Unable to visualize. Right flow velocities: Extensive atherosclerotic calcification particularly involving the arteries of the calf. None of the calf arteries couldn't be visualized on this study. Left common femoral artery: Monophasic flow velocity. 125 Left profunda femoris artery: Monophasic flow velocity. 53 Left superficial femoral artery: Monophasic flow velocity. 116 Left popliteal artery: Monophasic flow velocity. 132 proximally and 17 distally Left posterior tibial artery: Monophasic flow velocity. 43 Left anterior tibial artery: Monophasic flow velocity. 82 Left dorsalis pedis artery: Monophasic flow velocity. 51 Left peroneal artery: Unable to visualize. Left flow velocities: Extensive vascular calcification is also present on the left to a lesser degree with nonvisualization of the peroneal artery within the calf. Additionally, there is segmental increased flow velocity of the proximal popliteal artery characteristic of focal stenosis. IMPRESSION: 1. Nonvisualization of flow to the arteries of the right calf. Extensive atherosclerotic calcification is present. 2. Nonvisualization of flow to the peroneal artery on the left. Again extensive atherosclerotic calcification is present. 3. Increased flow velocity involving the left proximal popliteal artery characteristic of focal stenosis. 4. Monophasic flow throughout both lower extremities related to diffuse atherosclerotic disease. 03/03/22 03:27 CT head/brain wo con Urgent FINDINGS: Brain parenchyma: There is age-related involutional change noting mild subcortical and periventricular microangiopathic disease. There is no hemorrhage, mass effect, or evidence of acute territorial ischemia by CT criteria. Louis-white matter differentiation is preserved. No extra-axial fluid collection is seen. Ventricles, sulci, cisterns: Prominent secondary to involutional change. Intracranial vasculature: There is atherosclerotic calcification of the cavernous carotid and vertebral arteries. Calvarium: The skeletal structures are osteopenic. No depressed calvarial fracture is identified. Soft tissues: There is a right occipital scalp injury with skin clips in place. Sinuses and mastoids: There is mild mucosal thickening in the left maxillary antrum. The remaining paranasal sinuses are clear. The mastoid air cells are well pneumatized. Orbits: The bony orbits are grossly intact. There are bilateral ocular lens implants. IMPRESSION: There is no hemorrhage, mass effect, or evidence of acute territorial ischemia by CT criteria. ACT 112: Negative or not required by law. Electronically signed by: Celestino Guerrero M.D. 03/03/2022 7:13 AM 03/03/22 18:16 CT head/brain wo con Urgent FINDINGS: No acute intracranial hemorrhage, midline shift, intra-axial mass, hydrocephalus, territorial ischemia or abnormal extra-axial collection. Cerebral vascular calcifications. Mild involutional changes. Suggestion of chronic microvascular ischemic disease. Unchanged calcification adjacent to the left frontal lobe on image 26. The calvarium is intact. Minimal mucosal thickening of the left maxillary sinus. The mastoid air cells are clear. Prior bilateral lens replacement. Skin tushar of the right occipital scalp. IMPRESSION: No acute intracranial abnormality. 03/04/22 16:44 CT head/brain wo con Urgent FINDINGS: Brain parenchyma: There is age-related involutional change noting mild subcortical and periventricular microangiopathic disease. There is no hemorrhage, mass effect, or evidence of acute territorial ischemia by CT criteria. Louis-white matter differentiation is preserved. No extra-axial fluid collection is seen. Ventricles, sulci, cisterns: Prominent secondary to involutional change. Intracranial vasculature: There is atherosclerotic calcification of the cavernous carotid and vertebral arteries. Calvarium: The skeletal structures are osteopenic. No depressed calvarial fracture is identified. Soft tissues: Contusion and skin clips are noted in the right occipital scalp. Sinuses and mastoids: There is trace mucosal thickening left maxillary antrum. The remaining paranasal sinuses are clear. The mastoid air cells are well pne umatized. Orbits: The bony orbits are grossly intact. There are bilateral ocular lens implants. IMPRESSION: There is no evidence of hemorrhage, mass effect, or acute territorial ischemia by CT criteria noting a significantly motion compromised examination. 03/05/22 17:02 US carotid doppler BI Routine FINDINGS: Exam is limited by patient cooperation. The carotid arteries are patent bilaterally and demonstrate antegrade flow. There is minimal atherosclerotic plaque on the right and minimal atherosclerotic plaque on the left. Normal doppler arterial waveforms are seen throughout. Velocity measurements are listed below. Common carotid peak systolic velocity (cm/sec): RIGHT: 98 LEFT: 102 ICA peak systolic velocity (cm/sec): RIGHT: 116 LEFT: 161 ICA/CC peak systolic ratio: RIGHT: 1.18 LEFT: 1.5 Antegrade flow was shown in the vertebral arteries. The external carotid arteries are patent. IMPRESSION: 1. There is no sonographic evidence of hemodynamically significant stenosis in the right or left carotid arterial system. 2. Antegrade flow is shown in the vertebral arteries. Hospital Course (1) Fall: (2) Weakness: (3) Scalp laceration: (4) Cellulitis of right leg: (5) Diabetes mellitus, type II: (6) Combined congestive systolic and diastolic heart failure: (7) CKD (chronic kidney disease), stage III: (8) Complete heart block: (9) Pacemaker: (10) Sleep apnea: This is a 76yo F with a PMH of uncontrolled DM II, asthma, severe sleep apnea on 3L NC HS, combined systolic and diastolic heart failure, h/o complete heart block s/p pacemaker placement, LBBB, PVD, CKD III, dyslipidemia, morbid obesity and other medical problems as below who presents from home after fall. Fall Generalized weakness Scalp laceration Recently discharged from 5 months in [facility], minimal ambulatory ability at baseline CT head, CT cervical spine and pelvis XR without evidence of acute injury Scalp laceration repaired in ED. No headache on admission Fall precautions, PT/OT evaluation Positive confusion, likely encephalopathy from underlying infection, ELOY on CKD stage III, rule out intracranial bleed Repeat CT head stat - negative Blood cultures, urine cultures pending IV daptomycin plus Zosyn Management of ELOY per below Transferred to PCU ABG - obtained Given altered mental status,/encephalopathy, not improving, consulted neurology Per neurology, patient may have hospital acquired delirium in the setting of infection/ELOY EEG obtained (03/05/2022) This is an abnormal routine EEG in a patient with altered mentation due to 1. Generalized background slowing suggestive of a nonspecific encephalopathy, 2. Intermittent broad-based frontally predominant triphasic appearing sharp waves are nonspecific although often seen in metabolic encephalopathies (i.e. renal or hepatic). No electrographic seizures are seen. Per neurology, it is recommended that if her mental status does not improve, she should have continuous 24-hour EEG RLE cellulitis Severe peripheral artery disease Possible osteomyelitis Completed course of Augmentin prescribed in ER, then was prescribed 10d course of Clindamycin on 02/[address] Jones (PCP), continue probiotics Venous doppler without evidence of DVT. Arterial Doppler ordered to evaluate for component of PAD IMPRESSION: 1. Nonvisualization of flow to the arteries of the right calf. Extensive atherosclerotic calcification is present. 2. Nonvisualization of flow to the peroneal artery on the left. Again extensive atherosclerotic calcification is present. 3. Increased flow velocity involving the left proximal popliteal artery characteristic of focal stenosis. 4. Monophasic flow throughout both lower extremities related to diffuse atherosclerotic disease. R Foot Xray (03/03/22) IMPRESSION: Apparent erosion of the plantar calcaneal spur. This may reflect acute osteomyelitis and could be correlated with site of wound. Pain control Antibiotics and cultures per above Given above findings, vascular surgery was consulted. Unfortunately Dr. Machuca not available this week in the hospital. Previous provider Discussed with vascular surgery in [place] Dr. Plummer, recommend transfer to [place] when bed available Continued IV Dapto plus Zosyn while here However patient was not able to be transferred due to bed availability I consulted with another surgeon, Dr. Rivera today (03/05/22) who was not able to see the patient, but able to review her studies - will start IV heparin (I also discussed with neurology if IV heparin would be okay given her fall. She had several CT heads w/o con obtained, all negative for bleed) DM II December 2021 a1c much improved at 7.9 (from 13) Basal/bolus regimen while in-patient BSG AC HS Combined systolic and diastolic heart failure Slight increase in edema in BLE. Transition to IV Lasix 40mg IV for now / further diuretics per nephro No CP, SOB or weight gain Repeat CXR slightly improved pulm. edema Daily weights, strict intake and output, low sodium diet Acute on chronic CKD Cr 1.6 down from 2.4, due to ATN (baseline ~ 1.7-1/8). Hold losartan for now. Avoid nephrotoxic agents as able. Repeat BMP daily Small Machine Bindery Operator consulted, appreciate their input Monitor closely while on IV Lasix albumin also given Complete heart block s/p pacemaker placement ISAIAS 3L NC O2 HS PCP: Dr. Jones Dispo: Transfer to [facility] when bed available plan of care discussed with patient's at the bedside in detail and at length he is understanding, agreeable, comfortable with the plan of care Total Time Total Time Spent Total Time Spent (In Minutes): 40 Discharge Plan Discharge Items Patient Disposition: Transfer Acute Care Hospital Reason For Visit: FALL AT HOME Discharge Diagnosis: Right lower extremity cellulitis, possible osteomyelitis, PAD ELOY Encephalopathy/? Delirium DM type II Activity: Per Instructions section Non-emergency contact: Primary Care Provider Call non-emergency contact if: you have any medication questions and your symptoms worsen Follow-up/Referrals: Rk Jones MD [Primary Care Provider] - Diet: Carb Consistent or DM2 and Heart Healthy Addtl Attending Provider Instructions: Patient to be transferred to [facility] for further evaluation and treatment. Pending Studies at Discharge: Yes Studies:: Final blood cultures and urine cultures Stand-Alone Forms: My [facility] Skilled Items Patient informed of condition?: Yes DNR: No Discharge Level of Care: Other Communicable Disease: No Discharge Prognosis: Other Lines: Peripheral IV Urinary Catheter: Yes Medications and DC Order Prescriptions: Continued carvedilol 12.5 mg tablet 12.5 mg PO BID RF: 0 cyanocobalamin (vitamin B-12) 100 mcg Tablet 100 mcg PO DAILY RF: 0 clopidogrel 75 mg tablet 75 mg PO DAILY RF: 0 aspirin 81 mg Tablet,Delayed Release (Dr/Ec) 81 mg PO DAILY RF: 0 montelukast 10 mg tablet 10 mg PO DAILY RF: 0 Multiple Vitamin-Minerals Tablet 1 tab PO DAILY RF: 0 loratadine 10 mg Tablet 10 mg PO DAILY RF: 0 budesonide 32 mcg/actuation [place],Non-Aerosol 2 spray INTRANASAL DAILY RF: 0 insulin aspart U-100 [Novolog Flexpen U-100 Insulin] 100 unit/mL (3 mL) insulin pen 10 unit SUBCUT TID RF: 0 rosuvastatin 40 mg Tablet 40 mg PO DAILY RF: 0 diclofenac sodium 1 % Gel 4 g TOPICAL QID RF: 0 Trulicity 3 mg/0.5 mL pen injector 3 mg SUBCUT WK RF: 0 furosemide 40 mg tablet 40 mg PO QAM RF: 0 acetaminophen 325 mg Tablet 650 mg PO TID PRN (Reason: Pain) Qty: 180 RF: 0 gabapentin 100 mg capsule 100 mg PO BID Qty: 60 RF: 0 insulin glargine [Lantus Solostar U-100 Insulin] 100 unit/mL (3 mL) insulin pen 50 unit SUBCUT BID Qty: 0 RF: 0 morphine 15 mg tablet extended release 15 mg PO BID PRN (Reason: Severe Pain (Scale Score 7-10)) RF: 0 Saccharomyces boulardii 250 mg Capsule 250 mg PO BID RF: 0 magnesium 100 mg Tablet 100 mg PO DAILY RF: 0 potassium gluconate 550 mg (90 mg) Tablet 550 mg PO DAILY RF: 0 albuterol sulfate 2.5 mg /3 mL (0.083 %) solution for nebulization 2.5 mg inhalation Q6H PRN (Reason: shortness of breath or wheezing) Qty: 75 RF: 2 Discontinued tramadol 50 mg tablet 50 mg PO Q8 PRN (Reason: moderate pain) RF: 0 clindamycin HCl 300 mg capsule 300 mg PO QID RF: 0 losartan 100 mg Tablet 100 mg PO DAILY RF: 0 Discharge Orders: Discharge Order (Routine); Ordered 03/06/22 Ordered By: Guido Laura Admission Data Admit Date/Time: 03/02/22 17:15 Attending Provider: Guido Laura Admit Provider: Flaco Cox Primary Care Provider: Rk Jones Other Providers: [facility] ; Randy Shaver ; Flaco Cox ; Jill Chavez ; Garry Machuca ; Nellie Gardiner ; Kirill Schwab
[2022-03-06] MEDS: HEPARIN SODIUM/DEXTROSE 25,000 UNITS/500 ML BAG IV SCH (15:01)
[2022-03-06 16:44] LABS: Partial Thromboplastin Ratio 2.3
[2022-03-06 16:49] LABS: Partial Thromboplastin Time 62.5 Seconds (21.0-31.0)
[2022-03-06] MEDS ORDERED: DAPTOmycin 450 MG in SYRINGE 0 ML IV SCH (20:00)
== END 2022-03-06 16:21 | disposition short-term general hospital (02) | DRG 299 ==
LOC: ED 10:37 → 3E 17:15 → SUATTDRO 17:15 → 3E 20:40 → 2N 03-03 20:38 → 2W 03-04 01:39 → 2E 03-04 20:05

== ENCOUNTER 2022-03-20 10:45 | Inpatient (IN) ==
--- NOTE | 2022-03-20 11:25 | Emergency Department Note ---
Impression & Plan Fall, Weakness, Closed right fibular fracture, Hypomagnesemia ED Provider Note Provider: Ray Naik MD DATE OF SERVICE: 03/20/2022 CHIEF COMPLAINT: Falls HISTORY OF PRESENT ILLNESS: Patient is a 76-year-old female history of diabetes, obesity, hypertension, CKD, heart failure, peripheral artery disease presenting from home via ambulance today. Patient evidently recently hospitalized here and sent to [facility] for treatment of peripheral artery disease. Discharged on Tuesday at home with . Patient reports that she was doing well but her right knee gave out to her today and she slid to the ground. Called EMS and fire and had continued issues and brought here for further care. Patient states that some wounds on her right foot have been stable if maybe be slightly improving. No fevers reported. Reports maybe little bit neck pain but denies any head pain, chest pain, or abdominal pain. Patient's later arrives and states that she has been doing well until last night she seemed a bit cloudy. He reports that has been getting her her prescribed pain medication MS Contin as prescribed talk to the [facility] doctors last night and did not give it this morning. He thinks this may be contributing as she seems a bit foggy this morning and was having some odd behavior at home. He states he watched and should not fall and hit her head and just slid to the ground. Minimal right leg pain reported. REVIEW OF SYSTEMS: A total of 10 review of systems was obtained and negative except as stated above in the HPI. PAST MEDICAL HISTORY: As noted above MEDICATIONS: Reviewed home medication list SOCIAL HISTORY: Resides at home with PHYSICAL EXAM: GENERAL: alert and oriented in no acute distress on stretcher Head: normocephalic and atraumatic EYES: No injection, discharge or icterus. PERRL, EOMI. NECK: Trachea midline. Supple without significant tenderness ENT: Mucous membranes pink and moist. LUNGS: Airway patent. No retractions. Breath sounds clear with good air entry bilaterally. HEART: Regular rate and rhythm. No chest wall tenderness ABDOMEN: Soft and non-tender, without guarding or rebound. SKIN: Acyanotic, warm, dry, EXTREMITIES: Without swelling, tenderness or deformity is of the right lower leg and knee. There are some small areas of ulcerations on the multiple toes of the right foot without significant erythema or purulence noted. Patient with some slight erythema to the right mid leg and later some slight tenderness of the right ankle. NEUROLOGICAL: No focal deficits. No aphasia. No facial droop or slurred speech. Normal strength and tone in the extremities. Sensation to gross touch normal. EK bpm atrially sensed ventricular paced rhythm without PVC or PAC. No acute ST segment elevation QTC 5 CONTINUOUS CARDIAC MONITORING: was ordered and showed a heart rate of bpm in GCS 15. Patient's laboratory studies and imaging reviewed. Differential includes traumatic, infection, dehydration, metabolic abnormality, hypo/hyperglycemia, electrolyte disturbance, anemia, hypoxia, cardiac sources, intracerebral event, toxicologic, neurologic, as well as other pathologies. IMPRESSION/MEDICAL DECISION MAKING: Patient presents after slip and fall to the ground reportedly states she is a bit confused. Patient planes of some pain of the knee and at the neck. CT of the head and cervical spine were obtained without significant findings. X- ray of the chest as well as the knee without significant acute traumatic findings other than some swelling around the knee. Does have some slight warmness and slight erythema to the right lower leg and did recently have peripheral vascular procedure here. Some ulcerations of the feet are present. questions if her symptoms are related to her MS Contin which she held this morning. Did take some Tylenol this morning. Patient very reluctant for IV access or blood work. Discussed with patient bedside and she did allow me to try IV guided IV in the right AC region which was easily placed with 1 attempt of the patient did have some discomfort but this resolved. Lab work was sent. X-ray of the ankle on the right side obtained as she later complained of pain here. X-ray questions a distal right subtle fibular fracture. Patient denies other pain on reevaluation but is intermittently tearful. Given a small mount of fentanyl given her discomfort. Will place in a long-leg boot given the ability for us to continue to monitor her foot and leg easily with this. Some erythema here in question there could be some cellulitis although both she and the patient state they are just at [place] and they said this was not the case. Mild leukocytosis but a procalcitonin was sent for further differentiation. Her antibiotic decision to the hospitalist team. Some magnesium ordered for supplementation as this is low. Do not see if she can go home in her current state. Discussed with the hospitalist. Patient was reluctantly agreeable with this. Patient's was agreeable with this. DIAGNOSIS: Fall, right distal fibular fracture, weakness, hypomagnesemia DISPOSITION: Hospitalist will evaluate Patient was agreeable with this plan. Past Med/Surg History Medical History Asthma CKD (chronic kidney disease), stage III Combined congestive systolic and diastolic heart failure Complete heart block (06/14/14) Diabetes mellitus, type II Diabetes mellitus, type II, insulin dependent Dyslipidemia Excessive daytime sleepiness Granulomatous interstitial lung disease HTN (hypertension) Morbid obesity due to excess calories Nonischemic cardiomyopathy Pacemaker Physical deconditioning PVD (peripheral vascular disease) Sleep apnea Surgical History H/O tubal ligation History of cardiac cath 2014 - normal coronary arteries; [place] Jorg[place] [facility] [place] History of carpal tunnel release History of cataract removal with insertion of prosthetic lens History of revascularization procedure of lower extremity fem/pop artery revascularization RLE; 09/2017; Dr Gill at [facility] [place] History of total knee arthroplasty 2005; bilateral Family History Mother Leukemia Son Asthma Brother Stroke Social History Smoking Status: Never smoker Second Hand Exposure: No; Hx Alcohol Use: No Hx Substance Use: No Preferred Language: Tajik Communication Ability: Effective Glass Blower Required: No Beliefs That Will Affect Care: None marital status: Current Living Situation: Spouse Feels Safe at Home: No Is there a partner from a previous relationship who is making you feel unsafe now?: No Assistive Devices: Cane, Oxygen - at Night, Walker and Wheelchair Allergies Allergies Allergy/AdvReac Type Severity Reaction Status Date / Time fluticasone Allergy Severe WATER ON Verified 03/02/22 17:13 LUNGS salmeterol Allergy Severe WATER ON Verified 03/02/22 17:13 LUNGS propoxyphene Allergy Mild FROM Verified 03/02/22 17:13 DARVOCET benzocaine Allergy Unknown Unknown Verified 03/02/22 17:13 mold Allergy Unknown Unknown Verified 03/02/22 17:13 acetaminophen [From Vicodin] AdvReac Intermediate hallucinati Verified 03/02/22 17:13 ons hydrocodone [From Vicodin] AdvReac Intermediate hallucinati Verified 03/02/22 17:13 ons oxycodone AdvReac Intermediate Hallucinati Verified 03/02/22 17:13 ng prednisone AdvReac Intermediate HYPERGLYCEM Verified 03/02/22 17:13 IA Home Meds Home Medications Medication Instructions Recorded Confirmed aspirin 81 mg tablet,delayed 81 mg PO DAILY 10/01/19 03/02/22 release carvedilol 12.5 mg tablet 12.5 mg PO BID 10/01/19 03/02/22 clopidogrel 75 mg tablet 75 mg PO DAILY 10/01/19 03/02/22 cyanocobalamin (vitamin B-12) 100 100 mcg PO DAILY 10/01/19 03/02/22 mcg tablet loratadine 10 mg tablet 10 mg PO DAILY 10/01/19 03/02/22 montelukast 10 mg tablet 10 mg PO DAILY 10/01/19 03/02/22 multivitamin with minerals 1 tab PO DAILY 10/01/19 03/02/22 (Multiple Vitamin-Minerals) budesonide 32 mcg/actuation nasal 2 spray intranasal DAILY 09/22/21 03/02/22 spray diclofenac sodium 1 % topical gel 4 g topical QID 09/22/21 03/02/22 dulaglutide 3 mg/0.5 mL 3 mg subcut WK 09/22/21 03/02/22 subcutaneous pen injector (Trulicity) furosemide 40 mg tablet 40 mg PO QAM 09/22/21 03/02/22 insulin aspart U-100 100 unit/mL 10 unit subcut TID 09/22/21 03/02/22 (3 mL) subcutaneous pen (Novolog Flexpen U-100 Insulin aspart) rosuvastatin 40 mg tablet 40 mg PO DAILY 09/22/21 03/02/22 magnesium 100 mg tablet 100 mg PO DAILY 02/20/22 03/02/22 potassium gluconate 550 mg (90 mg) 550 mg PO DAILY 02/20/22 03/02/22 tablet Saccharomyces boulardii 250 mg 250 mg PO BID 03/02/22 03/02/22 capsule morphine 15 mg tablet,extended 15 mg PO BID PRN Severe Pain 03/02/22 03/02/22 release (Scale Score 7-10) Previous Rx's Medication Instructions Recorded acetaminophen 325 mg tablet 650 mg PO TID PRN Pain #180 tabs 10/21/21 gabapentin 100 mg capsule 100 mg PO BID #60 caps 10/21/21 insulin glargine 100 unit/mL (3 50 unit (0.5 mL) subcut BID #0 mL 10/21/21 mL) subcutaneous pen (Lantus Solostar U-100 Insulin) albuterol sulfate 2.5 mg (3 mL) inhalation Q6H PRN 02/20/22 shortness of breath or wheezing #75 mL Results & Data (ED) Vital Signs Vital Signs - 24 hr 03/20/22 10:55 03/20/22 12:40 03/20/22 11:04 Temperature 37.1 C Temperature Source Oral Pulse Rate 83 82 Pulse Rate from SpO2 Sensor 80 Respiratory Rate 20 14 Respiratory Effort / Characteristics Non-Labored Spontaneous Respiratory Depth Normal Respiratory Pattern Regular Blood Pressure 111/64 Blood Pressure Mean 79 Blood Pressure Position Lying Pulse Oximetry 93 97 93 Oxygen Delivery Method Room Air Room Air Sepsis Recent Fever Within 48 Hours No Sepsis New/Unexplained Change in Mental Status No Sepsis Action Taken by Nursing No Action Required 03/20/22 12:00 03/20/22 12:30 03/20/22 13:00 Temperature Temperature Source Pulse Rate 80 91 H 86 Pulse Rate from SpO2 Sensor Respiratory Rate 15 14 17 Respiratory Effort / Characteristics Respiratory Depth Respiratory Pattern Blood Pressure Blood Pressure Mean Blood Pressure Position Pulse Oximetry Oxygen Delivery Method Sepsis Recent Fever Within 48 Hours Sepsis New/Unexplained Change in Mental Status Sepsis Action Taken by Nursing 03/20/22 13:30 03/20/22 14:00 03/20/22 14:15 Temperature Temperature Source Pulse Rate 77 85 86 Pulse Rate from SpO2 Sensor 83 85 86 Respiratory Rate 21 18 20 Respiratory Effort / Characteristics Respiratory Depth Respiratory Pattern Blood Pressure 100/51 L Blood Pressure Mean 67 Blood Pressure Position Pulse Oximetry 95 91 93 Oxygen Delivery Method Room Air Room Air Sepsis Recent Fever Within 48 Hours Sepsis New/Unexplained Change in Mental Status Sepsis Action Taken by Nursing 03/20/22 14:30 03/20/22 14:30 03/20/22 15:00 Temperature Temperature Source Pulse Rate 87 84 Pulse Rate from SpO2 Sensor 87 89 Respiratory Rate 17 17 Respiratory Effort / Characteristics Respiratory Depth Respiratory Pattern Blood Pressure 105/77 Blood Pressure Mean 86 Blood Pressure Position Pulse Oximetry 94 90 Oxygen Delivery Method Sepsis Recent Fever Within 48 Hours Sepsis New/Unexplained Change in Mental Status Sepsis Action Taken by Nursing 03/20/22 15:01 03/20/22 15:03 03/20/22 15:04 Temperature Temperature Source Pulse Rate 89 88 Pulse Rate from SpO2 Sensor 88 87 Respiratory Rate 14 26 H Respiratory Effort / Characteristics Respiratory Depth Respiratory Pattern Blood Pressure Blood Pressure Mean 108 Blood Pressure Position Pulse Oximetry 92 89 L Oxygen Delivery Method Sepsis Recent Fever Within 48 Hours Sepsis New/Unexplained Change in Mental Status Sepsis Action Taken by Nursing 03/20/22 15:04 03/20/22 15:05 03/20/22 15:05 Temperature Temperature Source Pulse Rate 89 89 Pulse Rate from SpO2 Sensor 90 90 Respiratory Rate 20 20 Respiratory Effort / Characteristics Respiratory Depth Respiratory Pattern Blood Pressure 144/58 H Blood Pressure Mean 86 Blood Pressure Position Pulse Oximetry 91 89 L Oxygen Delivery Method Sepsis Recent Fever Within 48 Hours Sepsis New/Unexplained Change in Mental Status Sepsis Action Taken by Nursing Laboratory Data Result diagrams: 03/20/22 13:09 03/20/22 13:09 Lab Results 03/20/22 03/20/22 03/20/22 Range/Units 13:09 13:09 13:09 WBC 15.94 H (4.8-10.8) K/ul RBC 3.08 L (3.93-5.22) M/uL Hgb 9.4 L (12.0-16.0) g/dl Hct 30.4 L (34.1-44.9) % MCV 98.7 (80.0-100.0) fL MCH 30.5 (25.0-34.0) pg MCHC 30.9 L (32.0-36.0) g/dL RDW Std Deviation 65.0 H (36.4-46.3) fL RDW Coeff of Javier 18.1 H (11.5-14.5) % Plt Count 305 (130-400) K/uL MPV 9.3 L (9.4-12.3) fL Immature Gran % (Auto) 0.6 % Neut % (Auto) 82.5 % Lymph % (Auto) 5.2 % Runnels % (Auto) 7.8 % Eos % (Auto) 3.5 % Baso % (Auto) 0.4 % Neut # (Auto) 13.15 H (1.4-6.5) K/uL Lymph # (Auto) 0.83 L (1.2-3.4) K/uL Runnels # (Auto) 1.24 H (0.24-0.82) K/uL Eos # (Auto) 0.56 H (0-0.50) K/uL Baso # (Auto) 0.06 (0-0.2) K/uL Immature Gran # (Auto) 0.10 H (0.00-0.02) K/uL VBG pH (7.36-7.41) VBG pCO2 (38-50) mmHg VBG pO2 mmHg VBG HCO3 mmol/L VBG O2 Saturation % VBG Base Excess mEq/L Sodium 136 (136-145) mmol/L Potassium 4.3 (3.5-5.1) mmol/L Chloride 100 (98-107) mmol/L Carbon Dioxide 30 (21-32) mmol/L Anion Gap 6 (3-11) BUN 12 (6-23) mg/dl Creatinine 1.37 H (0.6-1.2) mg/dl Est Cr Clr Drug Dosing 42.8 ml/min Est GFR ( Amer) 43.3 ml/min Est GFR (Non-Af Amer) 37.4 ml/min BUN/Creatinine Ratio 8.8 L (10-20) Glucose 103 H (70-99(Fasting)) mg/dl Calcium 8.5 (8.5-10.1) mg/dl Magnesium 1.6 L (1.7-2.4) mg/dl Total Bilirubin 0.4 (0.2-1.0) mg/dl AST 16 (13-39) U/L ALT 16 (7-52) U/L Alkaline Phosphatase 88 (34-104) U/L Troponin I High Sens 9.1 (0-14) pg/ml Total Protein 6.1 (6.0-8.3) gm/dl Albumin 2.6 L (3.4-5.0) gm/dl Globulin 3.5 (2.5-4.0) gm/dl Albumin/Globulin Ratio 0.7 L (0.9-2) Procalcitonin (0-0.5) ng/ml TSH 2.135 (0.300-4.500) uIu/ml 03/20/22 03/20/22 Range/Units 13:09 13:09 WBC (4.8-10.8) K/ul RBC (3.93-5.22) M/uL Hgb (12.0-16.0) g/dl Hct (34.1-44.9) % MCV (80.0-100.0) fL MCH (25.0-34.0) pg MCHC (32.0-36.0) g/dL RDW Std Deviation (36.4-46.3) fL RDW Coeff of Javier (11.5-14.5) % Plt Count (130-400) K/uL MPV (9.4-12.3) fL Immature Gran % (Auto) % Neut % (Auto) % Lymph % (Auto) % Runnels % (Auto) % Eos % (Auto) % Baso % (Auto) % Neut # (Auto) (1.4-6.5) K/uL Lymph # (Auto) (1.2-3.4) K/uL Runnels # (Auto) (0.24-0.82) K/uL Eos # (Auto) (0-0.50) K/uL Baso # (Auto) (0-0.2) K/uL Immature Gran # (Auto) (0.00-0.02) K/uL VBG pH 7.46 H (7.36-7.41) VBG pCO2 43 (38-50) mmHg VBG pO2 25 mmHg VBG HCO3 31 mmol/L VBG O2 Saturation < 60.0 % VBG Base Excess 6.0 mEq/L Sodium (136-145) mmol/L Potassium (3.5-5.1) mmol/L Chloride (98-107) mmol/L Carbon Dioxide (21-32) mmol/L Anion Gap (3-11) BUN (6-23) mg/dl Creatinine (0.6-1.2) mg/dl Est Cr Clr Drug Dosing ml/min Est GFR ( Amer) ml/min Est GFR (Non-Af Amer) ml/min BUN/Creatinine Ratio (10-20) Glucose (70-99(Fasting)) mg/dl Calcium (8.5-10.1) mg/dl Magnesium (1.7-2.4) mg/dl Total Bilirubin (0.2-1.0) mg/dl AST (13-39) U/L ALT (7-52) U/L Alkaline Phosphatase (34-104) U/L Troponin I High Sens (0-14) pg/ml Total Protein (6.0-8.3) gm/dl Albumin (3.4-5.0) gm/dl Globulin (2.5-4.0) gm/dl Albumin/Globulin Ratio (0.9-2) Procalcitonin 0.15 (0-0.5) ng/ml TSH (0.300-4.500) uIu/ml Administered Medications Discontinued Medications Fentanyl Citrate (Fentanyl Citrate 100 Mcg/2 Ml Vial) 25 mcg IV NOW STA Stop: 03/20/22 13:10 Last Admin: 03/20/22 13:15 Dose: 25 mcg Documented By: JORDON Magnesium Sulfate/Dextrose (Magnesium Sulfate / D5w) 1 gm in 100 mls @ 200 mls/hr IV Q30M JEY Stop: 03/20/22 15:09 Last Admin: 03/20/22 14:18 Dose: 100 mls/hr Documented By: [facility] [place] Data Radiologist's Impression: Cervical Spine CT 03/20/22 11:19 CT SCAN OF THE CERVICAL SPINE CLINICAL HISTORY: Fall. COMPARISON STUDY: CT of the cervical spine dated 03/02/2022 TECHNIQUE: CT scan of the cervical spine is performed from the skull base to the upper thoracic spine. Images are reviewed in the axial, sagittal, and coronal planes. IV contrast was not administered for this examination. A dose lowering technique was utilized adhering to the principles of ALARA. FINDINGS: Skeletal structures: The skeletal structures are osteopenic. There is no evidence of fracture or subluxation involving the cervical spine. Vertebral body height is maintained. There is minimal anterolisthesis at C5-C6. Alignment is otherwise preserved. There is straightening of the cervical lordosis. Anterior osteophytes are seen throughout. The odontoid process and lateral masses are intact. The atlantoaxial articulation is preserved noting productive degenerative change. The spinous processes appear intact. There is mild to moderate multilevel cervical spondylosis. Uncovertebral and facet arthropathy contribute to neural foraminal narrowing at several levels. Intervertebral discs: There is mild multilevel degenerative disc space narrowing. Central canal: Large posterior disc osteophyte complexes are seen at all cervical levels between C3-C4 and C6-C7. This likely contributes to multilevel acquired compromise of the central canal. Soft tissues: The prevertebral and paraspinous soft tissues are within normal limits. There is atherosclerotic calcification of the carotid bulbs. Pacemaker leads are noted at the left thoracic inlet. Calvarium: The visualized calvarium at the skull base appears intact. Brain parenchyma: Partially visualized brain parenchyma at the skull base is within normal limits. Sinuses and mastoids: Mild mucosal thickening is noted in the maxillary antra. The mastoid air cells are well pneumatized. Lung apices: Clear as visualized. IMPRESSION: 1. There is no evidence of fracture or subluxation involving the cervical spine. 2. Osteopenia and spondylotic change as above. ACT 112: Negative or not required by law. Electronically signed by: Celestino Guerrero M.D. 03/20/2022 11:42 AM Chest X-Ray 03/20/22 11:19 SINGLE VIEW CHEST CLINICAL HISTORY: Fall. FINDINGS: An AP, portable, upright chest radiograph is compared to study dated 03/04/2022. Correlation is made with chest CT dated 11/01/2019. The examination is degraded by portable technique and apical lordotic positioning. A 2-lead cardiac pacemaker is unchanged in position. The heart is enlarged. There is pulmonary vascular congestion with interstitial edema. Small pleural effusions are suspected with bibasilar atelectasis. No pneumothorax is seen. The skeletal structures are osteopenic. The bony thorax is grossly intact. IMPRESSION: 1. Cardiomegaly and cardiac pacemaker with evidence of congestive failure and pulmonary edema. 2. Suspect small pleural effusions. ACT 112: Negative or not required by law. Electronically signed by: Celestino Guerrero M.D. 03/20/2022 11:[address] 03/20/22 11:19 CT SCAN OF THE BRAIN WITHOUT IV CONTRAST CLINICAL HISTORY: Fall. COMPARISON STUDY: CT of the brain dated 03/04/2022. TECHNIQUE: Unenhanced axial CT scan of the brain is performed from the vertex to the skull base. A dose lowering technique was utilized adhering to the principles of ALARA. CT DOSE: 1046.48 mGy.cm FINDINGS: Brain parenchyma: There is age-related involutional change noting mild subcortical and periventricular microangiopathic disease. There is no hemorrhage, mass effect, or evidence of acute territorial ischemia by CT criteria. Louis-white matter differentiation is preserved. No extra-axial fluid collection is seen. Ventricles, sulci, cisterns: Prominent secondary to involutional change. Intracranial vasculature: There is atherosclerotic calcification of the cavernous carotid and vertebral arteries. Calvarium: The skeletal structures are osteopenic. No depressed calvarial fracture is identified. Soft tissues: There is a right occipital scalp injury with skin clips in place. Sinuses and mastoids: There is mild mucosal thickening in the left maxillary a ntrum. The remaining visualized paranasal sinuses are clear. The mastoid air cells are well pneumatized. Orbits: The bony orbits are grossly intact. There are bilateral ocular lens implants. IMPRESSION: There is no hemorrhage, mass effect, or evidence of acute territorial ischemia by CT criteria. ACT 112: Negative or not required by law. Electronically signed by: Celestino Guerrero M.D. 03/20/2022 11:39 AM Knee X-Ray 03/20/22 11:19 RIGHT KNEE 3 VIEWS CLINICAL HISTORY: Fall with right knee injury. FINDINGS: AP, crosstable lateral, and sunrise views of the right knee are obtained. No prior studies are available for comparison at the time of dictation. The skeletal structures are osteopenic. No acute fracture is identified. A right knee arthroplasty is in near-anatomic alignment. There has been undersurface remodeling of the patella. Question periprosthetic lucency in the medial femoral condyle. Cortical irregularity along the lateral tibial plateau is likely unchanged from previous. There is a joint effusion. Prepatellar soft tissue swelling is observed. There is advanced atherosclerotic calcification of the popliteal artery. A calcified fabella is incidentally noted. IMPRESSION: 1. Soft tissue swelling and joint effusion with no acute fracture identified. 2. A right knee arthroplasty is in near-anatomic alignment. 3. Periprosthetic lucency is noted in the medial femoral condyle. Loosening is not excluded. Electronically signed by: Celestino Guerrero M.D. 03/20/2022 11:51 AM Ankle X-Ray 03/20/22 13:09 RIGHT ANKLE 3 VIEWS CLINICAL HISTORY: Fall. Right ankle pain. FINDINGS: 3 views of the right ankle are compared to study dated 08/27/2013. The skeletal structures are heterogeneously osteopenic. There is a subtle nondis placed fracture of the distal fibula. No additional fracture is seen. The ankle mortise appears intact noting osteochondral defect in the medial talar dome. There is no joint effusion. Soft tissue edema is present throughout the right lower extremity, greatest around the ankle. There is a large plantar heel spur. Degenerative spurring is seen along the dorsal aspect of the tarsal bones. There is atherosclerotic calcification of the regional arteries. IMPRESSION: Soft tissue edema with a subtle nondisplaced fracture of the distal fibula. Electronically signed by: Celestino Guerrero M.D. 03/20/2022 1:37 PM Discharge Plan Visit Data Chief Complaint: Fall Stated Complaint: FALLS, BILAT LEG WEAKNESS ED Provider: Ray Naik Discharge Problem: Fall, Weakness, Closed right fibular fracture, Hypomagnesemia Patient Disposition: Being Evaluated by Hospitalist Forms Stand Alone Forms: My [facility] Prescriptions Prescriptions: No Action carvedilol 12.5 mg tablet 12.5 mg PO BID cyanocobalamin (vitamin B-12) 100 mcg Tablet 100 mcg PO DAILY Label Comments: unknown strength (10/01/19) clopidogrel 75 mg tablet 75 mg PO DAILY aspirin 81 mg Tablet,Delayed Release (Dr/Ec) 81 mg PO DAILY montelukast 10 mg tablet 10 mg PO DAILY Multiple Vitamin-Minerals Tablet 1 tab PO DAILY loratadine 10 mg Tablet 10 mg PO DAILY budesonide 32 mcg/actuation Brooks,Non-Aerosol 2 spray INTRANASAL DAILY insulin aspart U-100 [Novolog Flexpen U-100 Insulin] 100 unit/mL (3 mL) insulin pen 10 unit SUBCUT TID Rx Instructions: With meals rosuvastatin 40 mg Tablet 40 mg PO DAILY diclofenac sodium 1 % Gel 4 g TOPICAL QID Trulicity 3 mg/0.5 mL pen injector 3 mg SUBCUT WK furosemide 40 mg tablet 40 mg PO QAM Rx Instructions: MAY TAKE ADDITIONAL DOSE FOR WT GAIN/SWELLING. acetaminophen 325 mg Tablet 650 mg PO TID PRN (Reason: Pain) Qty: 180 0RF gabapentin 100 mg capsule 100 mg PO BID Qty: 60 0RF Rx Instructions: 100 mg PO; insulin glargine [Lantus Solostar U-100 Insulin] 100 unit/mL (3 mL) insulin pen 50 unit SUBCUT BID Qty: 0 0RF morphine 15 mg tablet extended release 15 mg PO BID PRN (Reason: Severe Pain (Scale Score 7-10)) Saccharomyces boulardii 250 mg Capsule 250 mg PO BID Rx Instructions: take twice daily while on abx magnesium 100 mg Tablet 100 mg PO DAILY potassium gluconate 550 mg (90 mg) Tablet 550 mg PO DAILY albuterol sulfate 2.5 mg /3 mL (0.083 %) solution for nebulization 2.5 mg inhalation Q6H PRN (Reason: shortness of breath or wheezing) Qty: 75 2RF Referrals Referrals: Rk Jones MD [Primary Care Provider] - : Fall Qualifiers: Encounter type: initial encounter Qualified Code(s): W19.XXXA - Unspecified fall, initial encounter Closed right fibular fracture Qualifiers: Encounter type: initial encounter Fibula location: distal Fracture morphology: unspecified fracture morphology Qualified Code(s): S82.831A - Other fracture of upper and lower end of right fibula, initial encounter for closed fracture
--- NOTE | 2022-03-20 11:42 | CT Scan Report ---
CT SCAN OF THE BRAIN WITHOUT IV CONTRAST CLINICAL HISTORY: Fall. COMPARISON STUDY: CT of the brain dated 03/04/2022. TECHNIQUE: Unenhanced axial CT scan of the brain is performed from the vertex to the skull base. A do se lowering technique was utilized adhering to the principles of ALARA. CT DOSE: 1046.48 mGy.cm FINDINGS: Brain parenchyma: There is age-related involutional change noting mild subcortical and periventricula r microangiopathic disease. There is no hemorrhage, mass effect, or evidence of acute territorial isc hemia by CT criteria. Louis-white matter differentiation is preserved. No extra-axial fluid collection is seen. Ventricles, sulci, cisterns: Prominent secondary to involutional change. Intracranial vasculature: There is atherosclerotic calcification of the cavernous carotid and vertebr al arteries. Calvarium: The skeletal structures are osteopenic. No depressed calvarial fracture is identified. Soft tissues: There is a right occipital scalp injury with skin clips in place. Sinuses and mastoids: There is mild mucosal thickening in the left maxillary antrum. The remaining vi sualized paranasal sinuses are clear. The mastoid air cells are well pneumatized. Orbits: The bony orbits are grossly intact. There are bilateral ocular lens implants. IMPRESSION: There is no hemorrhage, mass effect, or evidence of acute territorial ischemia by CT jaden stiles. ACT 112: Negative or not required by law. Electronically signed by: Celestino Guerrero M.D. 03/20/2022 11:39 AM
--- NOTE | 2022-03-20 11:44 | CT Scan Report ---
CT SCAN OF THE CERVICAL SPINE CLINICAL HISTORY: Fall. COMPARISON STUDY: CT of the cervical spine dated 03/02/2022 TECHNIQUE: CT scan of the cervical spine is performed from the skull base to the upper thoracic spine . Images are reviewed in the axial, sagittal, and coronal planes. IV contrast was not administered fo r this examination. A dose lowering technique was utilized adhering to the principles of ALARA. FINDINGS: Skeletal structures: The skeletal structures are osteopenic. There is no evidence of fracture or subl uxation involving the cervical spine. Vertebral body height is maintained. There is minimal anterolis thesis at C5-C6. Alignment is otherwise preserved. There is straightening of the cervical lordosis. A nterior osteophytes are seen throughout. The odontoid process and lateral masses are intact. The atla ntoaxial articulation is preserved noting productive degenerative change. The spinous processes appea r intact. There is mild to moderate multilevel cervical spondylosis. Uncovertebral and facet arthropa thy contribute to neural foraminal narrowing at several levels. Intervertebral discs: There is mild multilevel degenerative disc space narrowing. Central canal: Large posterior disc osteophyte complexes are seen at all cervical levels between C3-C 4 and C6-C7. This likely contributes to multilevel acquired compromise of the central canal. Soft tissues: The prevertebral and paraspinous soft tissues are within normal limits. There is athero sclerotic calcification of the carotid bulbs. Pacemaker leads are noted at the left thoracic inlet. Calvarium: The visualized calvarium at the skull base appears intact. Brain parenchyma: Partially visualized brain parenchyma at the skull base is within normal limits. Sinuses and mastoids: Mild mucosal thickening is noted in the maxillary antra. The mastoid air cells are well pneumatized. Lung apices: Clear as visualized. IMPRESSION: 1. There is no evidence of fracture or subluxation involving the cervical spine. 2. Osteopenia and spondylotic change as above. ACT 112: Negative or not required by law. Electronically signed by: Celestino Guerrero M.D. 03/20/2022 11:42 AM
--- NOTE | 2022-03-20 11:48 | XRay Report ---
SINGLE VIEW CHEST CLINICAL HISTORY: Fall. FINDINGS: An AP, portable, upright chest radiograph is compared to study dated 03/04/2022. Correlation is made with chest CT dated 11/01/2019. The examination is degraded by portable technique and apical lo rdotic positioning. A 2-lead cardiac pacemaker is unchanged in position. The heart is enlarged. Ther e is pulmonary vascular congestion with interstitial edema. Small pleural effusions are suspected wit h bibasilar atelectasis. No pneumothorax is seen. The skeletal structures are osteopenic. The bony th orax is grossly intact. IMPRESSION: 1. Cardiomegaly and cardiac pacemaker with evidence of congestive failure and pulmonary edema. 2. Suspect small pleural effusions. ACT 112: Negative or not required by law. Electronically signed by: Celestino Guerrero M.D. 03/20/2022 11:47 AM
--- NOTE | 2022-03-20 11:53 | XRay Report ---
RIGHT KNEE 3 VIEWS CLINICAL HISTORY: Fall with right knee injury. FINDINGS: AP, crosstable lateral, and sunrise views of the right knee are obtained. No prior studies are available for comparison at the time of dictation. The skeletal structures are osteopenic. No acu te fracture is identified. A right knee arthroplasty is in near-anatomic alignment. There has been un dersurface remodeling of the patella. Question periprosthetic lucency in the medial femoral condyle. Cortical irregularity along the lateral tibial plateau is likely unchanged from previous. There is a joint effusion. Prepatellar soft tissue swelling is observed. There is advanced atherosclerotic calci fication of the popliteal artery. A calcified fabella is incidentally noted. IMPRESSION: 1. Soft tissue swelling and joint effusion with no acute fracture identified. 2. A right knee arthroplasty is in near-anatomic alignment. 3. Periprosthetic lucency is noted in the medial femoral condyle. Loosening is not excluded. Electronically signed by: Celestino Guerrero M.D. 03/20/2022 11:51 AM
[2022-03-20] MEDS ORDERED: fentaNYL citrate 100 MCG/2 ML VIAL IV STA ×2 (13:09→15:23)
[2022-03-20 13:32] LABS: HCO3 VBG 31 mmol/L; Oxygen Saturation VBG < 60.0 %; PCO2 VBG 43 mmHg (38-50); PO2 VBG 25 mmHg; pH VBG 7.46 (7.36-7.41)
[2022-03-20 13:33] LABS: Basophils # (auto) 0.06 K/uL (0-0.2); Basophils % (auto) 0.4 %; Eosinophils # (auto) 0.56 K/uL (0-0.50); Eosinophils % (auto) 3.5 %; Hematocrit (blood only) 30.4 % (34.1-44.9); Hemoglobin 9.4 g/dl (12.0-16.0); Immature Granulocytes % (auto) 0.6 %; Lymphocytes # (auto) 0.83 K/uL (1.2-3.4); Lymphocytes % (auto) 5.2 %; Mean Corpuscular Hemoglobin 30.5 pg (25.0-34.0); Mean Corpuscular Hgb Conc 30.9 g/dL (32.0-36.0); Mean Corpuscular Volume 98.7 fL (80.0-100.0); Mean Platelet Volume 9.3 fL (9.4-12.3); Monocytes # (auto) 1.24 K/uL (0.24-0.82); Monocytes % (auto) 7.8 %; Neutrophils # (auto) 13.15 K/uL (1.4-6.5); Neutrophils % (auto) 82.5 %; Platelet Count 305 K/uL (130-400); RDW Coefficient of Variation 18.1 % (11.5-14.5); Red Blood Count 3.08 M/uL (3.93-5.22); White Blood Count 15.94 K/ul (4.8-10.8)
--- NOTE | 2022-03-20 13:39 | XRay Report ---
RIGHT ANKLE 3 VIEWS CLINICAL HISTORY: Fall. Right ankle pain. FINDINGS: 3 views of the right ankle are compared to study dated 08/27/2013. The skeletal structures are heterogeneously osteopenic. There is a subtle nondisplaced fracture of the distal fibula. No aubrie tional fracture is seen. The ankle mortise appears intact noting osteochondral defect in the medial t alar dome. There is no joint effusion. Soft tissue edema is present throughout the right lower extrem ity, greatest around the ankle. There is a large plantar heel spur. Degenerative spurring is seen daniel ng the dorsal aspect of the tarsal bones. There is atherosclerotic calcification of the regional en isael. IMPRESSION: Soft tissue edema with a subtle nondisplaced fracture of the distal fibula. Electronically signed by: Celestino Guerrero M.D. 03/20/2022 1:37 PM
[2022-03-20 13:55] LABS: Albumin Globulin Ratio 0.7 (0.9-2); Albumin Level 2.6 gm/dl (3.4-5.0); BUN Creatinine Ratio 8.8 (10-20); Bilirubin,Total 0.4 mg/dl (0.2-1.0); Calcium 8.5 mg/dl (8.5-10.1); Creatinine Clr Calc Pharmacy 42.8 ml/min; Est GFR (African American) 43.3 ml/min; Est GFR (Non-African American) 37.4 ml/min; Globulin 3.5 gm/dl (2.5-4.0); Magnesium 1.6 mg/dl (1.7-2.4); Potassium 4.3 mmol/L (3.5-5.1); Total Protein 6.1 gm/dl (6.0-8.3)
[2022-03-20 14:02] LABS: Troponin I High Sensitivity 9.1 pg/ml (0-14)
[2022-03-20] MEDS: MAGNESIUM SULFATE / D5W 1 GM/100 ML BAG IV SCH ×2 (14:18→15:30)
[2022-03-20] MEDS ORDERED: traMADol HCL 50 MG TABLET PO STA (15:49)
--- NOTE | 2022-03-20 16:33 | History & Physical Report ---
Date of Service March 20, 2022 Assessment & Plan (1) Closed right fibular fracture: Plan: NONDISPLACED RIGHT FIBULAR FRACTURE, STATUS POST MECHANICAL FALL Tramadol as needed, Tylenol scheduled Orthopedic consult N.p.o. post midnight in case of surgery PT and OT evaluation MILD METABOLIC ENCEPHALOPATHY SECONDARY TO MORPHINE Avoid narcotics As needed tramadol CT head unrevealing CHRONIC CONGESTIVE HEART FAILURE, SYSTOLIC AND DIASTOLIC TYPE Euvolemic on exam Continue Lasix 40 mg daily COMPLETE HEART BLOCK, STATUS POST PACEMAKER No issues DIABETES TYPE 2 Insulin sliding scale for now Usually on Lantus 20 mg twice a day at home CKD STAGE III At baseline Monitor PERIPHERAL ARTERIAL DISEASE Status post right lower extremity angioplasty and stent placement on March 11, 2022 Good pedal pulses OBSTRUCTIVE SLEEP APNEA Continues 3 L of oxygen while sleeping DVT prophylaxis Hold heparin/Lovenox for now until procedure has been performed SCDs contraindicated secondary to patient's peripheral chill disease Disposition Will likely need acute rehab or group home facility plan of care discussed with patient and her in detail and at length all questions answered They are understanding, agreeable, comfortable with the plan of care History of Present Illness Chief Complaint: Severe right ankle pain, status post mechanical fall Primary Care Provider: Rk Jones MD 76-year-old female with history of congestive heart failure, systolic and diastolic type, complete heart block, status post pacemaker, diabetes type 2, CKD stage III, peripheral arterial disease, status post right lower extremity angioplasty and stent placement March 11, 2022, presenting with severe right ankle pain after a mechanical fall this afternoon. Patient was recently admitted to [facility] and transferred to [facility] for management of right lower extremity cellulitis/toe infection, in the setting of peripheral artery disease. Patient underwent right lower extremity angioplasty and stent placement last March 11, 2022. She was also treated for acute metabolic encephalopathy secondary to narcotics, ELOY. She was then discharged to home last Tuesday. According to patient's who is the primary care provider, patient was doing well until yesterday when she started to take morphine ER twice a day which was prescribed upon discharge from [facility]. Later yesterday, patient was noted to be incoherent, not herself according to the . This morning, the patient upon getting up from bed unfortunately fell on her knees and ultimately landing on her buttocks. EMS was called as patient's could not help her up. While being assisted to return to her walker, the patient had another fall. After which she reported severe right ankle pain. At the ER, the patient was received with stable vital signs. Imaging studies revealed nondisplaced right distal fibular fracture. Patient was given fentanyl IV for severe pain. Upon exam, the patient was seen in severe pain, almost tearful secondary to right ankle pain. Denies shortness of breath, chest pain palpitations, dizziness, nausea vomiting, headache, fevers or chills. No other issues noted as per . Allergies Allergy/AdvReac Type Severity Reaction Status Date / Time fluticasone Allergy Severe WATER ON Verified 03/02/22 17:13 LUNGS salmeterol Allergy Severe WATER ON Verified 03/02/22 17:13 LUNGS propoxyphene Allergy Mild FROM Verified 03/02/22 17:13 DARVOCET benzocaine Allergy Unknown Unknown Verified 03/02/22 17:13 mold Allergy Unknown Unknown Verified 03/02/22 17:13 acetaminophen [From Vicodin] AdvReac Intermediate hallucinati Verified 03/02/22 17:13 ons hydrocodone [From Vicodin] AdvReac Intermediate hallucinati Verified 03/02/22 17:13 ons oxycodone AdvReac Intermediate Hallucinati Verified 03/02/22 17:13 ng prednisone AdvReac Intermediate HYPERGLYCEM Verified 03/02/22 17:13 IA Home Medications Medication Instructions Recorded Confirmed Type aspirin 81 mg tablet,delayed 81 mg PO DAILY 10/01/19 03/02/22 History release carvedilol 12.5 mg tablet 12.5 mg PO BID 10/01/19 03/02/22 History clopidogrel 75 mg tablet 75 mg PO DAILY 10/01/19 03/02/22 History cyanocobalamin (vitamin B-12) 100 100 mcg PO DAILY 10/01/19 03/02/22 History mcg tablet loratadine 10 mg tablet 10 mg PO DAILY 10/01/19 03/02/22 History montelukast 10 mg tablet 10 mg PO DAILY 10/01/19 03/02/22 History multivitamin with minerals 1 tab PO DAILY 10/01/19 03/02/22 History (Multiple Vitamin-Minerals) budesonide 32 mcg/actuation nasal 2 spray intranasal DAILY 09/22/21 03/02/22 History spray diclofenac sodium 1 % topical gel 4 g topical QID 09/22/21 03/02/22 History dulaglutide 3 mg/0.5 mL 3 mg subcut WK 09/22/21 03/02/22 History subcutaneous pen injector (Trulicity) furosemide 40 mg tablet 40 mg PO QAM 09/22/21 03/02/22 History insulin aspart U-100 100 unit/mL 10 unit subcut TID 09/22/21 03/02/22 History (3 mL) subcutaneous pen (Novolog Flexpen U-100 Insulin aspart) rosuvastatin 40 mg tablet 40 mg PO DAILY 09/22/21 03/02/22 History acetaminophen 325 mg tablet 650 mg PO TID PRN Pain #180 tabs 10/21/21 03/02/22 Rx gabapentin 100 mg capsule 100 mg PO BID #60 caps 10/21/21 03/02/22 Rx insulin glargine 100 unit/mL (3 50 unit (0.5 mL) subcut BID #0 mL 10/21/21 03/02/22 Rx mL) subcutaneous pen (Lantus Solostar U-100 Insulin) albuterol sulfate 2.5 mg (3 mL) inhalation Q6H PRN 02/20/22 03/02/22 Rx shortness of breath or wheezing #75 mL magnesium 100 mg tablet 100 mg PO DAILY 02/20/22 03/02/22 History potassium gluconate 550 mg (90 mg) 550 mg PO DAILY 02/20/22 03/02/22 History tablet Saccharomyces boulardii 250 mg 250 mg PO BID 03/02/22 03/02/22 History capsule morphine 15 mg tablet,extended 15 mg PO BID PRN Severe Pain 03/02/22 03/02/22 History release (Scale Score 7-10) Past Med/Surg History Medical History Asthma CKD (chronic kidney disease), stage III Combined congestive systolic and diastolic heart failure Complete heart block (06/14/14) Diabetes mellitus, type II Diabetes mellitus, type II, insulin dependent Dyslipidemia Excessive daytime sleepiness Granulomatous interstitial lung disease HTN (hypertension) Morbid obesity due to excess calories Nonischemic cardiomyopathy Pacemaker Physical deconditioning PVD (peripheral vascular disease) Sleep apnea Surgical History H/O tubal ligation History of cardiac cath 2014 - normal coronary arteries; Dr Jorgensen at [facility] [place] History of carpal tunnel release History of cataract removal with insertion of prosthetic lens History of revascularization procedure of lower extremity fem/pop artery revascularization RLE; 09/2017; Dr Gill at [facility] [place] History of total knee arthroplasty 2006; bilateral Family History Mother Leukemia Son Asthma Brother Stroke Social History Smoking Status: Never smoker Second Hand Exposure: No; Hx Alcohol Use: No Hx Substance Use: No Preferred Language: German Communication Ability: Effective 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: No Beliefs That Will Affect Care: None marital status: Current Living Situation: Spouse Feels Safe at Home: No Is there a partner from a previous relationship who is making you feel unsafe now?: No Assistive Devices: Cane, Oxygen - at Night, Walker and Wheelchair Review of Systems Review of Systems: all noted and negative except for above Physical Exam Physical Exam: General- oriented x 2-3, not in distress, speaks in sentences with no effort or accessory muscle use Uncomfortable secondary to severe pain Morbidly obese Head- atraumatic Eyes- PERRL, EOMI, anicteric ENT- oropharynx clear Neck- supple, no JVD, no adenopathy, no thyromegaly; carotids +2/2, no bruits appreciated Lungs- clear to auscultation bilaterally, no rales/wheezes Heart- normal rate, regular rhythm; no murmur, no gallop, no rub appreciated Abdomen- normal bowel sounds, nondistended, soft, nontender, no masses or hepatosplenomegaly Extremities- no pretibial edema, no calf tenderness; peripheral pulses intact Right foot: Moderate tenderness on the ankle region, no erythema/hematoma Positive dry gangrene on bilateral toes Neuro- alert, oriented x 2-3; CN 2-12 grossly intact; motor 5/5 bilaterally;sensation 100% on all extremities; no other gross focal neurologic deficits Skin- warm & dry Results & Data Results & Data ([facility]) Vital Signs (Past 12 Hours) Vital Signs Temp Pulse Resp BP Pulse Ox O2 Del Method 03/20/22 15:05 89 20 89 L 03/20/22 15:05 144/58 H 03/20/22 15:04 89 20 91 03/20/22 15:03 88 26 H 89 L 03/20/22 15:01 89 14 92 03/20/22 15:00 84 17 90 03/20/22 14:30 87 17 94 03/20/22 14:30 105/77 03/20/22 14:15 86 20 100/51 L 93 Room Air 03/20/22 14:00 85 18 91 Room Air 03/20/22 13:30 77 21 95 03/20/22 13:00 86 17 03/20/22 12:30 91 H 14 03/20/22 12:00 80 15 03/20/22 11:04 82 14 93 03/20/22 12:40 97 Room Air 03/20/22 10:55 37.1 C 83 20 111/64 93 Room Air all noted and reviewed including below Code Status & VTE Plan VTE Prophylaxis Plan VTE Prophylaxis will be ordered: Yes (1) Closed right fibular fracture Encounter type: initial encounter Fibula location: distal Fracture morphology: unspecified fracture morphology Qualified Code(s): S82.831A - Other fracture of upper and lower end of right fibula, initial encounter for closed fracture
[2022-03-20] MEDS ORDERED: DEXTROSE 50% 50 ML SYRINGE IV PRN (18:03)
[2022-03-20] MEDS ORDERED: CARBOHYDRATES FOR HYPOGLYCEMIA PO PRN (18:03)
[2022-03-20] MEDS ORDERED: GLUCOSE 40% GEL 15 GM TUBE PO PRN (18:03)
[2022-03-20] MEDS ORDERED: GLUCAGON FOR INJ 1 MG VIAL SQ PRN (18:03)
[2022-03-20] MEDS ORDERED: GLUCOSE 10 TAB/TUBE PO PRN (18:03)
[2022-03-20] MEDS: INSULIN ASPART PER UNIT SC SCH ×2 (18:11→23:41)
[2022-03-20 18:57] LABS: Basophils # (auto) 0.07 K/uL (0-0.2); Basophils % (auto) 0.5 %; Eosinophils # (auto) 0.42 K/uL (0-0.50); Eosinophils % (auto) 2.9 %; Hematocrit (blood only) 29.8 % (34.1-44.9); Hemoglobin 9.4 g/dl (12.0-16.0); Immature Granulocytes # (auto) 0.08 K/uL (0.00-0.02); Immature Granulocytes % (auto) 0.5 %; Lymphocytes # (auto) 0.98 K/uL (1.2-3.4); Lymphocytes % (auto) 6.7 %; Mean Corpuscular Hemoglobin 30.6 pg (25.0-34.0); Mean Corpuscular Hgb Conc 31.5 g/dL (32.0-36.0); Mean Corpuscular Volume 97.1 fL (80.0-100.0); Mean Platelet Volume 9.2 fL (9.4-12.3); Monocytes # (auto) 1.12 K/uL (0.24-0.82); Monocytes % (auto) 7.7 %; Neutrophils # (auto) 11.88 K/uL (1.4-6.5); Neutrophils % (auto) 81.7 %; Platelet Count 306 K/uL (130-400); RDW Coefficient of Variation 18.2 % (11.5-14.5); RDW Standard Deviation 65.2 fL (36.4-46.3); Red Blood Count 3.07 M/uL (3.93-5.22); White Blood Count 14.55 K/ul (4.8-10.8)
[2022-03-20 19:18] LABS: BUN Creatinine Ratio 9.6 (10-20); Calcium 8.4 mg/dl (8.5-10.1); Creatinine Clr Calc Pharmacy 43.2 ml/min; Est GFR (African American) 43.7 ml/min; Est GFR (Non-African American) 37.7 ml/min; Potassium 4.5 mmol/L (3.5-5.1)
[2022-03-20] MEDS: carvediloL 12.5 MG TAB PO SCH (20:29)
[2022-03-20] MEDS: ACETAMINOPHEN 325 MG TAB PO PRN (20:30)
[2022-03-21] MEDS: traMADol HCL 50 MG TABLET PO PRN ×3 (00:09→14:30)
[2022-03-21] MEDS ORDERED: MoRPHine SULFATE 4 MG/ML 1 ML CARP\\VIAL IV STA (01:51)
[2022-03-21] MEDS: INSULIN ASPART PER UNIT SC SCH ×4 (07:27→21:10)
[2022-03-21] MEDS: carvediloL 12.5 MG TAB PO SCH ×2 (07:55→19:57)
[2022-03-21] MEDS: ASPIRIN 81 MG ECTAB PO SCH (07:55)
[2022-03-21] MEDS: FUROSEMIDE 40 MG TAB PO SCH (07:55)
[2022-03-21] MEDS: CLOPIDOGREL BISULFATE 75 MG TAB PO SCH (07:55)
[2022-03-21] MEDS: ROSUVASTATIN CALCIUM 20 MG TAB PO SCH (07:56)
[2022-03-21] MEDS: CYANOCOBALAMIN (B-12) 100 MCG TABLET PO SCH (07:56)
[2022-03-21 08:22] LABS: Appearance Urine Turbid (Clear); Bacteria Urine Automated 4+ (Negative); Bilirubin Urine Negative (Negative); Blood Urine 2+ (Negative); Color Urine Yellow; Epithelial Cell Urine Auto >30 /lpf (0-5); Glucose Urine UA Negative (Negative); Ketones Urine Trace (Negative); Leukocyte Esterase Urine 3+ (Negative); Nitrite Urine Positive (Negative); Protein Urine 2+ (Negative); Specific Gravity Urine 1.017 (1.000-1.030); Urobilinogen Urine Negative (Negative); WBC Urine Automated >30 /hpf (0-5); pH Urine 5.5 (4.5-7.5)
[2022-03-21 08:52] LABS: Basophils # (auto) 0.07 K/uL (0-0.2); Basophils % (auto) 0.6 %; Eosinophils # (auto) 0.56 K/uL (0-0.50); Eosinophils % (auto) 4.9 %; Hematocrit (blood only) 30.3 % (34.1-44.9); Hemoglobin 9.5 g/dl (12.0-16.0); Immature Granulocytes # (auto) 0.06 K/uL (0.00-0.02); Immature Granulocytes % (auto) 0.5 %; Lymphocytes # (auto) 1.15 K/uL (1.2-3.4); Lymphocytes % (auto) 10.1 %; Mean Corpuscular Hemoglobin 30.8 pg (25.0-34.0); Mean Corpuscular Hgb Conc 31.4 g/dL (32.0-36.0); Mean Corpuscular Volume 98.4 fL (80.0-100.0); Mean Platelet Volume 9.2 fL (9.4-12.3); Monocytes # (auto) 1.16 K/uL (0.24-0.82); Monocytes % (auto) 10.2 %; Neutrophils # (auto) 8.37 K/uL (1.4-6.5); Neutrophils % (auto) 73.7 %; Platelet Count 255 K/uL (130-400); RDW Coefficient of Variation 18.3 % (11.5-14.5); RDW Standard Deviation 65.7 fL (36.4-46.3); Red Blood Count 3.08 M/uL (3.93-5.22); White Blood Count 11.37 K/ul (4.8-10.8)
[2022-03-21] MEDS ORDERED: [UNRECOGNIZED DRUG - REMARK] INTNAS SCH (09:00)
[2022-03-21 09:13] LABS: BUN Creatinine Ratio 10.8 (10-20); Calcium 8.1 mg/dl (8.5-10.1); Creatinine Clr Calc Pharmacy 41.6 ml/min; Est GFR (African American) 42.6 ml/min; Est GFR (Non-African American) 36.7 ml/min; Potassium 4.1 mmol/L (3.5-5.1)
--- NOTE | 2022-03-21 11:28 | Electrocardiogram Report ---
Test Reason : Blood Pressure : / mmHG Vent. Rate : 082 BPM Atrial Rate : 082 BPM P-R Int : 190 ms QRS Dur : 168 ms QT Int : 438 ms P-R-T Axes : 049 -77 062 degrees QTc Int : 511 ms Atrial-sensed ventricular-paced rhythm Normal sinus rhythm Abnormal ECG When compared with ECG of 20-FEB-2022 16:26, Vent. rate has increased BY 3 BPM Confirmed by Steven Hummel ([id number]) on 03/21/2022 11:28:01 AM Referred By: REFERRED SELF Confirmed By:Steven Hummel
[2022-03-21] MEDS: ACETAMINOPHEN 325 MG TAB PO PRN (13:40)
[2022-03-21] MEDS ORDERED: ACETAMINOPHEN 1,000 MG/100 ML VIAL IV STA (15:54)
--- NOTE | 2022-03-21 17:06 | Consultation Report ---
DATE OF CONSULTATION: 03/21/2022. HISTORY OF PRESENT ILLNESS: This is a 76-year-old female seen at the request of Dr. Shaver for rig ht closed nondisplaced lateral malleolus fracture. The patient was at home with her and she was taking morphine extended release tablets twice a day, which was prescribed upon discharge from [facility] due to lower extremity pain related to peripheral vascular disease, ischemic u lcers and severe diabetic polyneuropathy. The patient fell onto her knees when getting up from bed a nd twisted her right ankle. She presented to [facility] via EMS. She was evaluate d by the ER physician. Radiographs were obtained, right ankle noting a nondisplaced lateral malleolu s fracture. The patient had pain along the medial and lateral aspects of the ankle. She was admitte d to the hospitalist service for multiple other medical comorbidities and metabolic encephalopathy. Orthopedics was consulted. The patient was seen and examined with her at bedside. She compl ained of pain in the right lower extremity, specifically around the ankle and the right heel. She avina d a low walking boot present. PAST MEDICAL HISTORY: Congestive heart failure, systolic and diastolic, complete heart block, status post pacemaker placement, diabetes mellitus type 2, chronic kidney disease stage III, peripheral art pasquale disease, status post right lower extremity angioplasty and stent placed 03/11/2022 in [place]. Asthma, dyslipidemia, excessive daytime sleepiness, granulomatous interstitial lung disease, hyperten cortez, morbid obesity, nonischemic cardiomyopathy, physical deconditioning and sleep apnea. PAST SURGICAL HISTORY: Status post angioplasty and stent placement as noted above, tubal ligation, h eart catheterization 2014, carpal tunnel release, cataract removal, fem-pop right lower extremity 2017, bilateral total knee arthroplasty. ALLERGIES: FLUTICASONE, SALMETEROL, PROPOXYPHENE, BENZOCAINE, MOLD, ACETAMINOPHEN WITH HALLUCINATIONS FROM VICODIN, HYDROCODONE WITH HALLUCINATIONS FROM VICODIN, OXYCODONE, HALLUCINATIONS AND PREDNISONE WITH HYPERGLYCEMIA. PAST MEDICATIONS: Please note the extensive list in the medical record. SOCIAL HISTORY: The patient is . She denies tobacco, alcohol or drug use. She is . She is retired. PHYSICAL EXAMINATION: This is a 76-year-old obese female, lying supine in hospital room bed with her present at bedside. Complaining of pain in the right ankle and right heel. She is a poor hi storian and admits that she does not know where she was upon examination. She did, however, know the year. Focused examination of the lower extremity on the right demonstrates skin warm, dry and intac t to the level of the mid foot; however, the forefoot has multiple ischemic ulcers on multiple toes. Regional excoriation around the ischemic ulcers. Dorsalis and posterior tibial pulses are limited o n the right compared to the left. Foot is warm. Marked tenderness to palpation and local swelling o bonnie the lateral malleolus. Marked tenderness and mild edema over the medial malleolus. Stage II ski n changes of the right posterior and posterior medial heel with early blister formation. Marked tend erness to palpation at the right calcaneal tuberosity. Local erythema. No evidence of cellulitis on the right. RADIOGRAPHS: Demonstrate nondisplaced fracture of the lateral malleolus on the right. No evidence of fracture of the medial malleolus. Osteopenia is evident. IMPRESSION: 1. Right lateral malleolus fracture, nondisplaced. 2. Deltoid ligament sprain of the right ankle. 3. Peripheral vascular disease. 4. Right stage II heel ulcer. 5. Diabetic polyneuropathy. RECOMMENDATIONS: Nonweightbearing right lower extremity, use of heel protection devices whether be a waffle boot or resting bed splint with 0 pressure on the right heel. May use a high walking boot ra ther than the low walking boot provided to provide adequate stabilization during transfers. Elevate bilateral heels. Heel precautions. Follow up with Dr. Olivera at [facility] approximate y 10-14 days post-discharge for reassessment and new radiographs of the right ankle. Apply ice to th e affected areas of the right ankle and heel as necessary, taking care to avoid extended periods of t sherri with ice due to significant neuropathy. Thank you for the opportunity to consult in the care of this patient. Job ID: [id number]
--- NOTE | 2022-03-21 17:39 | Hospitalist Progress Note ---
Date of Service March 21, 2022 Assessment & Plan (1) Closed right fibular fracture: Plan: NONDISPLACED RIGHT FIBULAR FRACTURE, STATUS POST MECHANICAL FALL Dr. Olivera consulted non surgical non weight bearing R LE framed waffle boots Tramadol as needed, Tylenol 1 g TID, PRN Fentanyl PT and OT evaluation MILD METABOLIC ENCEPHALOPATHY SECONDARY TO MORPHINE Avoid narcotics As needed tramadol CT head unrevealing will try Fentanyl as patient tolerated this in the ER CHRONIC CONGESTIVE HEART FAILURE, SYSTOLIC AND DIASTOLIC TYPE Euvolemic on exam Continue Lasix 40 mg daily COMPLETE HEART BLOCK, STATUS POST PACEMAKER No issues DIABETES TYPE 2 Insulin sliding scale for now Usually on Lantus 20 mg twice a day at home CKD STAGE III At baseline Monitor PERIPHERAL ARTERIAL DISEASE Status post right lower extremity angioplasty and stent placement on March 11, 2022 Good pedal pulses OBSTRUCTIVE SLEEP APNEA Continues 3 L of oxygen while sleeping DVT prophylaxis Heparin SQ Disposition Will likely need acute rehab or [facility] facility plan of care discussed with patient and her in detail and at length all questions answered They are understanding, agreeable, comfortable with the plan of care Admission and Anticipated Discharge Date Admission Date: March 20, 2022 Subjective ff up for r ankle fracture, etc seen in AM comfortable oriented, answers questions appropriately states ankle pain adequately controlled by Tramadol no chest pain, dyspnea, palpitations, dizziness no other symptoms patient having severe pain later in the afternoon seen at bedside with Ortho Dr. Olivera- recommend changing boot to framed waffle boots IV Ofirmev started ok to try Fentanyl again per Review of Systems Review of Systems: all noted and negative except for above Physical Exam Physical Exam: General- oriented x 2-3, not in distress, speaks in sentences with no effort or accessory muscle use Eyes- anicteric Neck- no JVD Lungs- clear BS bilaterally, no rales/wheezes Heart- normal rate, regular rhythm; no murmurs Abdomen- normal bowel sounds, nondistended, soft, nontender Extremities- no pretibial edema, no calf tenderness R ankle: mild edema, no hematoma (+) severe tenderness Neuro- alert, oriented x 3; no gross focal neurologic deficits Skin- warm & dry Results & Data Results & Data ([facility]) Vital Signs (Past 12 Hours) Vital Signs Temp Pulse Pulse Resp BP Pulse Ox O2 Del Method 03/21/22 14:13 73 03/21/22 06:13 81 03/21/22 11:12 36.7 C 76 18 113/71 98 Nasal Cannula 03/21/22 07:54 36.7 C 80 16 125/75 100 Nasal Cannula O2 Flow Rate 03/21/22 14:13 03/21/22 06:13 03/21/22 11:12 2 03/21/22 07:54 2 all noted and reviewed including below (1) Closed right fibular fracture Encounter type: initial encounter Fibula location: distal Fracture morphology: unspecified fracture morphology Qualified Code(s): S82.831A - Other fracture of upper and lower end of right fibula, initial encounter for closed fracture
[2022-03-21] MEDS ORDERED: fentaNYL citrate 100 MCG/2 ML VIAL IV PRN (18:23)
[2022-03-21] MEDS: MONTELUKAST SODIUM 10 MG TABLET PO SCH (19:57)
[2022-03-21] MEDS: HEPARIN SOD 5,000 UNIT/0.5 ML VIAL SQ SCH (22:40)
[2022-03-22] MEDS: HEPARIN SOD 5,000 UNIT/0.5 ML VIAL SQ SCH ×3 (05:42→22:10)
[2022-03-22] MEDS: CLOPIDOGREL BISULFATE 75 MG TAB PO SCH (08:02)
[2022-03-22] MEDS: FUROSEMIDE 40 MG TAB PO SCH (08:02)
[2022-03-22] MEDS: ASPIRIN 81 MG ECTAB PO SCH (08:02)
[2022-03-22] MEDS: traMADol HCL 50 MG TABLET PO PRN (08:02)
[2022-03-22] MEDS: CYANOCOBALAMIN (B-12) 100 MCG TABLET PO SCH (08:02)
[2022-03-22] MEDS: ROSUVASTATIN CALCIUM 20 MG TAB PO SCH (08:02)
[2022-03-22] MEDS: carvediloL 12.5 MG TAB PO SCH ×2 (08:03→22:10)
[2022-03-22] MEDS: ACETAMINOPHEN 500 MG TAB PO SCH ×3 (08:03→22:09)
[2022-03-22] MEDS: INSULIN ASPART PER UNIT SC SCH ×4 (08:10→22:08)
[2022-03-22] MEDS: ondansetron HCL 6 MG in DEXTROSE 5% 50 ML IV PRN ×2 (13:37→22:08)
--- NOTE | 2022-03-22 18:58 | Hospitalist Progress Note ---
Date of Service March 22, 2022 Assessment & Plan (1) Closed right fibular fracture: Plan: NONDISPLACED RIGHT FIBULAR FRACTURE, STATUS POST MECHANICAL FALL Dr. 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 Avoid narcotics As needed tramadol CT head unrevealing CHRONIC CONGESTIVE HEART FAILURE, SYSTOLIC AND DIASTOLIC TYPE Euvolemic on exam Continue Lasix 40 mg daily COMPLETE HEART BLOCK, STATUS POST PACEMAKER No issues DIABETES TYPE 2 Insulin sliding scale for now Usually on Lantus 20 mg twice a day at home CKD STAGE III At baseline Monitor PERIPHERAL ARTERIAL DISEASE Status post right lower extremity angioplasty and stent placement on March 11, 2022 Good pedal pulses OBSTRUCTIVE SLEEP APNEA Continues 3 L of oxygen while sleeping DVT prophylaxis Heparin SQ Disposition Will likely need acute rehab or [facility] facility plan of care discussed with patient and her in detail and at length all questions answered They are understanding, agreeable, comfortable with the plan of care Admission and Anticipated Discharge Date Admission Date: March 20, 2022 Subjective Follow-up for right fibular fracture, etc. Seen with patient's at the bedside Also PARTHA Scanlon Patient sitting up at the edge of the bed Alert, oriented x2-3, occasionally gets confused States she is upset because they were not letting her sit up in bed Then goes on to say that she was moved to a kids room, placed on a cot Patient reoriented easily States right ankle pain is better compared to yesterday, pain medication relieving the pain No chest pain, palpitations, dizziness, cough, shortness of breath No other symptoms Review of Systems Review of Systems: all noted and negative except for above Physical Exam Physical Exam: General- oriented x 2-3, intermittently gets confused, easily reoriented, not in distress, speaks in sentences with no effort or accessory muscle use Eyes- anicteric Neck- no JVD Lungs- clear breath sounds bilaterally, no rales/wheezes Heart- normal rate, regular rhythm; no murmurs Abdomen- normal bowel sounds, nondistended, soft, nontender Extremities- no pretibial edema, no calf tenderness Right ankle-mild edema, tenderness, warmth Right toes-dry gangrene Neuro- alert, oriented x 3; no gross focal neurologic deficits Skin- warm & dry Results & Data Results & Data ([facility]) Vital Signs (Past 12 Hours) Vital Signs Temp Pulse Pulse Resp BP Pulse Ox O2 Del Method 03/22/22 16:00 82 03/22/22 10:55 36.7 C 83 20 130/66 90 Room Air 03/22/22 08:00 80 03/22/22 08:00 Nasal Cannula 03/22/22 08:07 36.7 C 78 18 127/70 92 Room Air O2 Flow Rate 03/22/22 16:00 03/22/22 10:55 03/22/22 08:00 03/22/22 08:00 3 03/22/22 08:07 all noted and reviewed including below (1) Closed right fibular fracture Encounter type: initial encounter Fibula location: distal Fracture morphology: unspecified fracture morphology Qualified Code(s): S82.831A - Other fracture of upper and lower end of right fibula, initial encounter for closed fracture
[2022-03-22] MEDS: cefTRIAXone SODIUM 2,000 MG in DEXTROSE 5% 50 ML IV SCH (22:09)
[2022-03-22] MEDS: MONTELUKAST SODIUM 10 MG TABLET PO SCH (22:10)
[2022-03-23] MEDS: HEPARIN SOD 5,000 UNIT/0.5 ML VIAL SQ SCH ×3 (06:25→20:46)
--- NOTE | 2022-03-23 07:22 | XRay Report ---
XR knee LT 3V, XR knee RT 3V HISTORY: 76 years-old Female fall acute bilateral knee pain status post fall COMPARISON: Right knee radiographs 03/20/2022, left knee radiographs 10/04/2021 TECHNIQUE: 3 views of the bilateral knees FINDINGS: LEFT: Total joint arthroplasty with patellar resurfacing. Small joint effusion. Healing subacute fractures of the proximal tibial and fibular diaphyses are redemonstrated. There is unchanged alignment of the proximal fibular fracture. Distraction of the proximal tibial fracture fragment measures up to 5 mm w hich has progressed from the prior study. Arterial calcifications. RIGHT: Total joint arthroplasty with patellar resurfacing. No acute fracture, dislocation or opaque foreign body. Arterial calcifications. Small joint effusion. IMPRESSION: 1. Healing subacute fractures of the left proximal tibia and fibula. There is unchanged alignment of the proximal fibular fracture, however mild distraction of the proximal tibial fracture fragments has progressed from 10/04/2021. Follow-up is needed. 2. No acute fracture or dislocation of the right knee. 3. 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 ACT 112: Negative or not required by law. The above report was generated using voice recognition software. It may contain grammatical, syntax o r spelling errors. Electronically signed by: Aditya Gallegos M.D. 03/23/2022 7:20 AM
[2022-03-23] MEDS: carvediloL 12.5 MG TAB PO SCH ×2 (07:55→20:46)
[2022-03-23] MEDS: ACETAMINOPHEN 500 MG TAB PO SCH ×3 (07:56→20:45)
[2022-03-23] MEDS: CLOPIDOGREL BISULFATE 75 MG TAB PO SCH (07:56)
[2022-03-23] MEDS: FUROSEMIDE 40 MG TAB PO SCH (07:56)
[2022-03-23] MEDS: ROSUVASTATIN CALCIUM 20 MG TAB PO SCH (07:56)
[2022-03-23] MEDS: CYANOCOBALAMIN (B-12) 100 MCG TABLET PO SCH (07:56)
[2022-03-23] MEDS: ASPIRIN 81 MG ECTAB PO SCH (07:56)
[2022-03-23] MEDS: INSULIN ASPART PER UNIT SC SCH ×4 (10:34→20:51)
--- NOTE | 2022-03-23 19:43 | Hospitalist Progress Note ---
Date of Service March 23, 2022 Assessment & Plan (1) Closed right fibular fracture: Plan: NONDISPLACED RIGHT FIBULAR FRACTURE, STATUS POST MECHANICAL FALL Dr. Olivera consulted non surgical non weight bearing R LE framed waffle boots Tramadol as needed, Tylenol 1 g TID, PRN Fentanyl PT and OT evaluation Pain well controlled PT OT consulted BILATERAL KNEE PAIN, STATUS POST MECHANICAL FALL Happened earlier this morning 03/23 Bilateral knee x-rays: 1. Healing subacute fractures of the left proximal tibia and fibula. There is unchanged alignment of the proximal fibular fracture, however mild distraction of the proximal tibial fracture fragments has progressed from 10/04/2021. Follow- up is needed. 2. No acute fracture or dislocation of the right knee. 3. 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 -- Discussed with Dr. Jones of [facility] They will reevaluate the patient For now nonweightbearing as well on the right lower extremity MILD METABOLIC ENCEPHALOPATHY SECONDARY TO MORPHINE Avoid narcotics As needed tramadol CT head unrevealing -- Improving CHRONIC CONGESTIVE HEART FAILURE, SYSTOLIC AND DIASTOLIC TYPE Euvolemic on exam Continue Lasix 40 mg daily COMPLETE HEART BLOCK, STATUS POST PACEMAKER No issues DIABETES TYPE 2 Insulin sliding scale for now Usually on Lantus 20 mg twice a day at home CKD STAGE III At baseline Monitor PERIPHERAL ARTERIAL DISEASE Status post right lower extremity angioplasty and stent placement on March 11, 2022 Good pedal pulses OBSTRUCTIVE SLEEP APNEA Continues 3 L of oxygen while sleeping DVT prophylaxis Heparin SQ Disposition Will likely need acute rehab or [facility] facility plan of care discussed with patient and her in detail and at length all questions answered They are understanding, agreeable, comfortable with the plan of care Admission and Anticipated Discharge Date Admission Date: March 20, 2022 Subjective Follow-up for right ankle fracture, status post mechanical fall, etc. Overnight patient unfortunately fell off her bed, landing on her knees Seen with patient's at the bedside Awake and alert, answers most questions appropriately but occasionally takes a long time to answer questions No signs of hallucinations today States right ankle pain is much better today Reports having right knee pain no chest pain, dyspnea, palpitations, dizziness No other symptoms Review of Systems Review of Systems: all noted and negative except for above Physical Exam Physical Exam: General- oriented x 3, not in distress, speaks in sentences with no effort or accessory muscle use Eyes- anicteric Neck- no JVD Lungs- clear breath sounds bilaterally, no rales/wheezes Heart- normal rate, regular rhythm; no murmurs Abdomen- normal bowel sounds, nondistended, soft, nontender Extremities-bilateral knees: No edema/hematoma/warmth/tenderness Right ankle-mild edema, no erythema/warmth/tenderness Positive dry gangrene of right toes Neuro- alert, oriented x 3; no gross focal neurologic deficits Skin- warm & dry Results & Data Results & Data ([facility]) Vital Signs (Past 12 Hours) Vital Signs Temp Pulse Pulse Resp BP Pulse Ox O2 Del Method 03/23/22 15:05 36.7 C 87 18 113/68 90 Room Air 03/23/22 11:49 36.7 C 82 20 118/69 97 03/23/22 08:00 85 03/23/22 08:00 Nasal Cannula O2 Flow Rate 03/23/22 15:05 03/23/22 11:49 03/23/22 08:00 03/23/22 08:00 3 all noted and reviewed including below (1) Closed right fibular fracture Encounter type: initial encounter Fibula location: distal Fracture morphology: unspecified fracture morphology Qualified Code(s): S82.831A - Other fracture of upper and lower end of right fibula, initial encounter for closed fracture
[2022-03-23] MEDS: MONTELUKAST SODIUM 10 MG TABLET PO SCH (20:46)
[2022-03-23] MEDS: cefTRIAXone SODIUM 2,000 MG in DEXTROSE 5% 50 ML IV SCH (20:51)
--- NOTE | 2022-03-23 22:47 | Consultation Report ---
ORTHOPEDIC NOTE DATE OF SERVICE: 03/23/2022 HISTORY OF PRESENT ILLNESS: The patient is a 76-year-old white female who previously had an ankle fr acture. Apparently became disoriented last evening and fell and injured her left knee. She had a pr evious periprosthetic proximal tibial fracture with minimal angulation. Upon new x-rays evaluation, she has further displaced the fracture, although it is still in satisfactory alignment and position. She will need to be placed in a knee immobilizer and nonweightbearing for now. I will discuss this c ase with Dr. Guzman as well. ASSESSMENT: Proximal tibia fracture with change of positions from September x-rays to yesterday. PLAN: For immobilizer, nonweightbearing on tibial plateau fracture. Job ID: [id number]
[2022-03-24] MEDS: HEPARIN SOD 5,000 UNIT/0.5 ML VIAL SQ SCH ×3 (06:26→22:35)
[2022-03-24] MEDS: ACETAMINOPHEN 500 MG TAB PO SCH ×4 (06:26→21:48)
[2022-03-24] MEDS: ASPIRIN 81 MG ECTAB PO SCH (08:05)
[2022-03-24] MEDS: FUROSEMIDE 40 MG TAB PO SCH (08:05)
[2022-03-24] MEDS: CYANOCOBALAMIN (B-12) 100 MCG TABLET PO SCH (08:05)
[2022-03-24] MEDS: INSULIN ASPART PER UNIT SC SCH ×4 (08:05→22:19)
[2022-03-24] MEDS: ROSUVASTATIN CALCIUM 20 MG TAB PO SCH (08:05)
[2022-03-24] MEDS: CLOPIDOGREL BISULFATE 75 MG TAB PO SCH (08:05)
[2022-03-24] MEDS: carvediloL 12.5 MG TAB PO SCH ×2 (08:06→21:48)
[2022-03-24] MEDS: traMADol HCL 50 MG TABLET PO PRN (10:50)
[2022-03-24] MEDS: GABAPENTIN 100 MG CAP PO SCH ×2 (13:02→21:48)
--- NOTE | 2022-03-24 14:36 | Communication Note ---
Date of Service: March 24, 2022 X-rays reviewed with Dr. Guzman. No significant change in alignment compared to radiographs in December. Continue with knee immobilizer. Can be toe touch WB on left lower extremity in regards to her knee. F/u with Dr. Guzman's office in 2 weeks for new x-rays. She can call [phone] for an appointment.
[2022-03-24] MEDS: ondansetron HCL 6 MG in DEXTROSE 5% 50 ML IV PRN (17:34)
--- NOTE | 2022-03-24 17:50 | Hospitalist Progress Note ---
Date of Service March 24, 2022 Assessment & Plan (1) Closed right fibular fracture: Plan: 76-year-old female with PMH of DM type II, asthma, severe sleep apnea on 3 L nasal cannula oxygen at bedtime, combined systolic and diastolic heart failure, history of complete heart block status post pacer placement, LBBB, PVD status post RLE angioplasty and stent placement March 11, 2022, CKD stage III, dyslipidemia, morbid obesity and recurrent falls presented 03/20 with severe ankle pain after a mechanical fall. She is being managed for the following: #. NONDISPLACED RIGHT FIBULAR FRACTURE, STATUS POST MECHANICAL FALL, likely on the background of age-related osteoporosis #. Recurrent falls Age-related osteoporotic fractures of the right fibula and left tibia and fibula Admitting C-spine CT/head CT/right knee x-ray with no acute findings. Osteopenia noted with C-spine. Admitting right ankle x-ray with osteopenia and subtle nondisplaced fracture of the distal fibula. 03/23 left knee x-ray: Unchanged alignment of the proximal fibular fracture, however mild distraction of the proximal tibial fracture fragments that has progressed from 10/04/2021. Follow-up is recommended. No acute fracture. Orthopedic evaluated, non surgical management, nonweightbearing RLE. Framed waffle boots, no pressure on the right heel. May use a high walking boot rather than the low walking boot provided to provide adequate stabilization dur ing transfers. Follow-up with Ortho in 10 to 14 days. Pain management with tramadol as needed, Tylenol 1 g as needed, avoid opiates. PT/OT evaluation. #. BILATERAL KNEE PAIN, STATUS POST MECHANICAL FALL Happened earlier morning 03/23 Bilateral knee x-rays: 1. Healing subacute fractures of the left proximal tibia and fibula. There is unchanged alignment of the proximal fibular fracture, however mild distraction of the proximal tibial fracture fragments has progressed from 10/04/2021. Follow- up is needed. 2. No acute fracture or dislocation of the right knee. 3. 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 Ortho reevaluated, continue with knee immobilizer, can be toe-touch weightbearing on LLE. Follow-up with Dr. Guzman in 2 weeks for new x-rays for reevaluation. #. Likely MILD TOXIC ENCEPHALOPATHY SECONDARY TO MORPHINE Avoid narcotics. Admitting CT head unrevealing. As needed tramadol Improving. #. UTI on rocephin 03/22 #. Other chronic medical conditions: CHF systolic and diastolic, CHB status post pacer, CKD stage III, peripheral arterial disease, ISAIAS on 3 L nasal cannula oxygen while sleeping. Continue with/resume home meds as and when appropriate. Continue with sliding scale, BLE with good pedal pulses. Patient is status post RLE angioplasty and stent placement on March 11, 2022. Will resume gabapentin #. DVT prophylaxis: Heparin subcu #. Disposition: Will likely need acute rehab or jail facility Admission and Anticipated Discharge Date Admission Date: March 20, 2022 Subjective Patient seen and examined at bedside as a follow-up of closed right fibular fracture and encephalopathy likely secondary to morphine use. Patient was lying in bed, on room air, was in mild distress secondary to LLE pain, had received tramadol few minutes prior to my bedside exam, no new acute events overnight per RN, per RN had 2 episodes of emesis during the day, pt aware of surrounding and not confused, sending labs and electrolytes, patient denies headache or dizziness but reports pain in her LLE, will resume her gabapentin, continue to monitor for pain management and encephalopathy. Denies chest pain or shortness of breath. Physical Exam Physical Exam: GENERAL: Alert and oriented x3. NAD, on RA. HEENT: No pallor, no icterus. Pupils equal, round and reactive to light. Oral mucosa moist. NECK: No JVD, no neck masses. HEART: S1 and S2 heard. Regular rate and rhythm. No murmur, no gallop. RESPIRATORY SYSTEM: Normal AP diameter. No accessory muscle use. No wheezing, no crackles. ABDOMEN: Soft, bowel sounds present, nontender, no distention. CENTRAL NERVOUS SYSTEM: No facial droop. Speech is clear. Obeys simple commands. Moves extremities. EXTREMITIES: No edema, no erythema seen. 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 LLE w/ knee support in place. Results & Data Results & Data ([facility]) Vital Signs (Past 12 Hours) Vital Signs Temp Pulse Resp BP Pulse Ox O2 Del Method O2 Flow Rate 03/24/22 16:04 36.8 C 82 18 138/73 91 03/24/22 08:45 Nasal Cannula 2 03/24/22 07:30 36.9 C 78 18 99/60 L 98 (1) Closed right fibular fracture Encounter type: initial encounter Fibula location: distal Fracture morphology: unspecified fracture morphology Qualified Code(s): S82.831A - Other fracture of upper and lower end of right fibula, initial encounter for closed fracture
[2022-03-24 18:41] LABS: BUN Creatinine Ratio 10.4 (10-20); Calcium 8.8 mg/dl (8.5-10.1); Creatinine Clr Calc Pharmacy 42.8 ml/min; Est GFR (African American) 44.5 ml/min; Est GFR (Non-African American) 38.4 ml/min; Magnesium 1.7 mg/dl (1.7-2.4); Phosphorus 2.8 mg/dl (2.5-4.9); Potassium 3.8 mmol/L (3.5-5.1)
[2022-03-24] MEDS ORDERED: LANTUS PER UNIT CHARGE SQ SCH (21:00)
[2022-03-24] MEDS: MONTELUKAST SODIUM 10 MG TABLET PO SCH (21:48)
[2022-03-24] MEDS: cefTRIAXone SODIUM 2,000 MG in DEXTROSE 5% 50 ML IV SCH (22:34)
[2022-03-25] MEDS ORDERED: PROMETHAZINE HCL 12.5 MG in SODIUM CHLORIDE 0.9% 50 ML IV PRN (00:45)
[2022-03-25] MEDS: ondansetron HCL 6 MG in DEXTROSE 5% 50 ML IV PRN (00:45)
[2022-03-25] MEDS ORDERED: PANTOprazole 80 MG in DEXTROSE 5% 100 ML IV ONE (00:46)
[2022-03-25] MEDS ORDERED: bisacodyL 10 MG SUPP PR STA (00:49)
--- NOTE | 2022-03-25 00:53 | Communication Note ---
Date of Service: March 25, 2022 12:40 AM Patient with nausea, 6 emesis episodes as per RN (possible hematemesis). No BM since 03/20 admission as per RN. Patient complaining of belly upset as per RN. Ap UGI B Constipation N.p.o. for now CBC now Hold antiplatelet Rx, heparin subcu IV PPI GI consult Re: UGI B CT abdomen pelvis Bowel regimen Will relay to AM provider.
[2022-03-25 01:22] LABS: Basophils # (auto) 0.07 K/uL (0-0.2); Basophils % (auto) 0.8 %; Eosinophils # (auto) 0.29 K/uL (0-0.50); Eosinophils % (auto) 3.4 %; Hematocrit (blood only) 29.5 % (34.1-44.9); Hemoglobin 9.5 g/dl (12.0-16.0); Immature Granulocytes # (auto) 0.04 K/uL (0.00-0.02); Immature Granulocytes % (auto) 0.5 %; Lymphocytes # (auto) 1.32 K/uL (1.2-3.4); Lymphocytes % (auto) 15.4 %; Mean Corpuscular Hemoglobin 30.9 pg (25.0-34.0); Mean Corpuscular Hgb Conc 32.2 g/dL (32.0-36.0); Mean Corpuscular Volume 96.1 fL (80.0-100.0); Mean Platelet Volume 9.5 fL (9.4-12.3); Monocytes # (auto) 1.31 K/uL (0.24-0.82); Monocytes % (auto) 15.3 %; Neutrophils # (auto) 5.54 K/uL (1.4-6.5); Neutrophils % (auto) 64.6 %; Platelet Count 286 K/uL (130-400); RDW Standard Deviation 60.1 fL (36.4-46.3); Red Blood Count 3.07 M/uL (3.93-5.22); White Blood Count 8.57 K/ul (4.8-10.8)
[2022-03-25 01:40] LABS: Albumin Globulin Ratio 0.7 (0.9-2); Albumin Level 2.6 gm/dl (3.4-5.0); BUN Creatinine Ratio 10.2 (10-20); Bilirubin,Total 0.3 mg/dl (0.2-1.0); Calcium 8.5 mg/dl (8.5-10.1); Creatinine Clr Calc Pharmacy 41.8 ml/min; Est GFR (African American) 43.3 ml/min; Est GFR (Non-African American) 37.4 ml/min; Magnesium 1.7 mg/dl (1.7-2.4); Potassium 3.6 mmol/L (3.5-5.1); Total Protein 6.6 gm/dl (6.0-8.3)
[2022-03-25 01:43] LABS: Partial Thromboplastin Ratio 1.1; Partial Thromboplastin Time 29.3 Seconds (21.0-31.0)
[2022-03-25] MEDS ORDERED: POLYETHYLENE (MIRALAX) 17 GM PACK PO STA (03:08)
[2022-03-25] MEDS ORDERED: POLYETHYLENE (MIRALAX) 17 GM PACK PO PRN (03:08)
[2022-03-25 06:06] LABS: Hematocrit (blood only) 30.9 % (34.1-44.9); Hemoglobin 9.9 g/dl (12.0-16.0)
[2022-03-25] MEDS: DOCUSATE SODIUM/SENNA 50/8.6MG TAB PO SCH ×2 (06:16→06:55)
[2022-03-25] MEDS: ACETAMINOPHEN 500 MG TAB PO SCH ×4 (06:16→21:23)
--- NOTE | 2022-03-25 07:34 | CT Scan Report ---
CT OF THE ABDOMEN AND PELVIS WITHOUT CONTRAST CLINICAL HISTORY: Abdominal pain. Vomiting. GI bleed. COMPARISON STUDY: KUB October 07, 2021. CT of the abdomen and pelvis October 01, 2019. TECHNIQUE: Axial images of the abdomen and pelvis were obtained without IV contrast. Images were revi ewed in the axial, sagittal, and coronal planes. Automated exposure control was utilized for the tanya dy. A dose lowering technique was utilized adhering to the principles of ALARA. FINDINGS: No pneumatosis, free air or portal venous gas is present. There are calcified granulomas wi thin the liver and spleen. Small gallstones are noted. No pericholecystic stranding is present. Size of the gallbladder is at the upper limits of normal. Unenhanced images of the adrenal glands and panc reas are unremarkable. No biliary or pancreatic ductal dilatation is present. Stomach is mildly diste nded. There is no hydronephrosis. No ureteral calculi are present. Calcifications within the renal si nuses are vascular. Diffuse bladder wall thickening is noted. Bladder is mildly distended. Colonic di verticulosis is noted without evidence for acute diverticulitis. There is no evidence for a bowel obs truction. No evidence for acute appendicitis. No lymphadenopathy is present. There is no acute fractu re or suspicious lesion within the visualized skeletal structures. Extensive atherosclerotic plaque o f the branch vessels is noted. IMPRESSION: 1. Bladder wall thickening, a nonspecific finding which could be correlated with urinalysis and urine cytology. This finding will be called/faxed to ordering provider at time of dictation. 2. Cholelithiasis. No convincing evidence for acute cholecystitis. 2. Mildly distended stomach. 4. No bowel obstruction. ACT 112: Negative or not required by law. Electronically signed by: Sushil Michele M.D. 03/25/2022 7:32 AM
[2022-03-25] MEDS: INSULIN ASPART PER UNIT SC SCH ×4 (08:15→21:30)
[2022-03-25] MEDS ORDERED: PANTOprazole 40 MG in SYRINGE 0 ML IV SCH (09:00)
--- NOTE | 2022-03-25 10:50 | Gastrointestinal Consultation ---
Date of Consultation March 25, 2022 Assessment & Plan (1) Fall: (2) Closed right fibular fracture: Patient is a 76 years old female currently admitted for leg fractures following a fall. She is seen today for concerns of possible upper GI bleeding. Was having nausea and vomiting overnight, noted to have brown emesis with dark specks, without jack hematemesis. No drop in her blood count, BUN normal, exam is benign today revealing soft abdomen, nontender, bowel sounds present. She passed hard and dry brown stools this morning. - Monitor blood ct and transfuse prn - DC PPI IV; switched to Protonix 40mg daily PO - Avoid NSAIDs if possible - Defer EGD evaluation - GI to sign off; pls recall prn Supervising Physician Co-Signing Physician Notes Attg add: I interviewed and examined pt, reviewed chart and labs. Pt with na usea, vomiting of brown material without drop in hgb. Today, she feels well, brett food. She does not want EGD. Recs: Diet as tolerated. Consider KUB r/o obstruction. Once daily PPI. Please call with questions. History of Present Illness Reason for Consultation: UGI bleed Requesting Physician: Dr. Enrrique Amor Attending Physician: Dr. Sarahy Banks History of Present Illness Pt is a 76-year-old female with PMHx of DM type II, asthma, severe sleep apnea on 3 L nasal cannula oxygen at bedtime, combined systolic and diastolic heart failure, history of complete heart block status post pacer placement, LBBB, PVD status post RLE angioplasty and stent placement March 11, 2022, CKD stage III, dyslipidemia, morbid obesity and recurrent falls. She is currently admitted for leg fractures following a fall. GI is consulted as there was a concern for upper GI bleed. Patient had nausea and vomiting overnight. Per nurses account, emesis was brown in color, with dark specks. No jack hematemesis. Chart reviewed, blood counts stable without drop in hematocrit. BUN was normal. Patient had brown stools this morning which were reportedly hard and dry. Patie nt denies any abdominal pain, nausea or vomiting. Though has not had any breakfast. She denies any history of stomach ulcers, family history is of GI malignancies. Denies ever having upper or lower endoscopies. She reportedly has lost quite a lot of weight (around 30lbs) since the beginning of the year because she had been through several admissions and also rehab. Allergies Allergy/AdvReac Type Severity Reaction Status Date / Time fluticasone Allergy Severe WATER ON Verified 03/20/22 17:12 LUNGS salmeterol Allergy Severe WATER ON Verified 03/20/22 17:12 LUNGS propoxyphene Allergy Mild FROM Verified 03/20/22 17:12 DARVOCET benzocaine Allergy Unknown Unknown Verified 03/20/22 17:12 mold Allergy Unknown Unknown Verified 03/20/22 17:12 acetaminophen [From Vicodin] AdvReac Intermediate hallucinati Verified 03/02/22 17:13 ons hydrocodone [From Vicodin] AdvReac Intermediate hallucinati Verified 03/20/22 17:12 ons oxycodone AdvReac Intermediate Hallucinati Verified 03/20/22 17:12 ng prednisone AdvReac Intermediate HYPERGLYCEM Verified 03/20/22 17:12 IA Home Medications Medication Instructions Recorded Confirmed Type aspirin 81 mg tablet,delayed 81 mg PO DAILY 10/01/19 03/20/22 History release carvedilol 12.5 mg tablet 12.5 mg PO BID 10/01/19 03/20/22 History clopidogrel 75 mg tablet 75 mg PO DAILY 10/01/19 03/20/22 History cyanocobalamin (vitamin B-12) 100 100 mcg PO DAILY 10/01/19 03/20/22 History mcg tablet loratadine 10 mg tablet 10 mg PO DAILY 10/01/19 03/20/22 History montelukast 10 mg tablet 10 mg PO DAILY 10/01/19 03/20/22 History multivitamin with minerals 1 tab PO DAILY 10/01/19 03/20/22 History (Multiple Vitamin-Minerals) budesonide 32 mcg/actuation nasal 2 spray intranasal DAILY 09/22/21 03/20/22 History spray diclofenac sodium 1 % topical gel 4 g topical QID 09/22/21 03/20/22 History dulaglutide 3 mg/0.5 mL 3 mg subcut WK 09/22/21 03/20/22 History subcutaneous pen injector (Trulicity) insulin aspart U-100 100 unit/mL 10 unit subcut TIDM 09/22/21 03/20/22 History (3 mL) subcutaneous pen (Novolog Flexpen U-100 Insulin aspart) rosuvastatin 40 mg tablet 40 mg PO DAILY 09/22/21 03/20/22 History gabapentin 100 mg capsule 100 mg PO BID #60 caps 10/21/21 03/20/22 Rx magnesium 100 mg tablet 100 mg PO DAILY 02/20/22 03/20/22 History potassium gluconate 550 mg (90 mg) 550 mg PO QAM 02/20/22 03/20/22 History tablet morphine 15 mg tablet,extended 15 mg PO AMHS 03/02/22 03/20/22 History release acetaminophen 325 mg tablet 650 mg PO Q6 PRN Pain 03/20/22 03/20/22 History albuterol sulfate 2.5 mg inhalation Q4 PRN Wheezing 03/20/22 03/20/22 History furosemide 20 mg tablet 40 mg PO QAM 03/20/22 03/20/22 History insulin glargine 100 unit/mL (3 20 unit subcut [facility] 03/20/22 03/20/22 History mL) subcutaneous pen (Lantus Solostar U-100 Insulin) losartan 100 mg tablet 50 mg PO QAM 03/20/22 03/20/22 History Patient History Medical History (Updated 03/25/22 @ 10:49 by YAJAIRA Deras) Asthma CKD (chronic kidney disease), stage III Combined congestive systolic and diastolic heart failure Complete heart block (06/14/14) Diabetes mellitus, type II Diabetes mellitus, type II, insulin dependent Dyslipidemia Excessive daytime sleepiness Granulomatous interstitial lung disease HTN (hypertension) Morbid obesity due to excess calories Nausea & vomiting Nonischemic cardiomyopathy Pacemaker Physical deconditioning PVD (peripheral vascular disease) Sleep apnea Surgical History H/O tubal ligation History of cardiac cath 2014 - normal coronary arteries; Dr Jorgensen at [facility] [place] History of carpal tunnel release History of cataract removal with insertion of prosthetic lens History of revascularization procedure of lower extremity fem/pop artery revascularization RLE; 09/2017; Dr Gill at [facility] [place] History of total knee arthroplasty 2005; bilateral Family History Mother Leukemia Son Asthma Brother Stroke Social History Smoking Status: Never smoker Second Hand Exposure: No; Hx Alcohol Use: No Hx Substance Use: No Preferred Language: Faroese Communication Ability: Effective [employer] Supervisor Required: No Beliefs That Will Affect Care: None marital status: Current Living Situation: Spouse Other Information That Helps Us Care for You: No Feels Safe at Home: Yes Safety Concerns: Feels Safe At This Time Assistive Devices: Cane, Oxygen - at Night, Walker and Wheelchair Review of Systems Review of Systems: All systems reviewed & are unremarkable except as noted in HPI & below Physical Exam Constitutional: WD/WN, vitals as above well groomed, cooperative and comfortable Eyes: PERRL, conjunctivae normal, anicteric sclerae ENMT: external ear and nose normal, oropharynx normal Respiratory: normal respiratory effort, lungs clear to auscultation Cardiovascular: RRR, no murmur, no edema Gastrointestinal (Abdomen): normal bowel sounds, soft, nontender, no hepatosplenomegaly Skin: no rashes, warm and dry no jaundice Psychiatric: A+Ox3, euthymic affect Lymphatic: no lymphedema Results & Data ([facility]) Vital Signs (Past 12 Hours) Vital Signs Temp Pulse Pulse Resp BP BP Pulse Ox 03/25/22 07:40 37.0 C 85 16 111/71 98 03/25/22 04:22 03/25/22 00:00 101 H 03/25/22 00:00 37.1 C 89 18 152/60 H 98 O2 Del Method O2 Flow Rate 03/25/22 07:40 Nasal Cannula 3 03/25/22 04:22 Nasal Cannula 2 03/25/22 00:00 03/25/22 00:00 (1) Fall Encounter type: initial encounter Qualified Code(s): W19.XXXA - Unspecified fall, initial encounter (2) Closed right fibular fracture Encounter type: initial encounter Fibula location: distal Fracture morphology: unspecified fracture morphology Qualified Code(s): S82.831A - Other fracture of upper and lower end of right fibula, initial encounter for closed fracture
[2022-03-25] MEDS: POTASSIUM CHLORIDE / WTR 10 MEQ/100 ML PLCT IV SCH ×2 (11:00→15:25)
[2022-03-25] MEDS: CYANOCOBALAMIN (B-12) 100 MCG TABLET PO SCH ×2 (11:16→12:02)
[2022-03-25] MEDS: ROSUVASTATIN CALCIUM 20 MG TAB PO SCH (11:16)
[2022-03-25] MEDS: GABAPENTIN 100 MG CAP PO SCH ×3 (11:16→21:23)
[2022-03-25] MEDS: carvediloL 12.5 MG TAB PO SCH ×2 (12:02→21:24)
[2022-03-25 12:08] LABS: Hematocrit (blood only) 30.2 % (34.1-44.9); Hemoglobin 9.7 g/dl (12.0-16.0)
--- NOTE | 2022-03-25 19:40 | Hospitalist Progress Note ---
Date of Service March 25, 2022 Assessment & Plan (1) Closed right fibular fracture: Plan: 76-year-old female with PMH of DM type II, asthma, severe sleep apnea on 3 L nasal cannula oxygen at bedtime, combined systolic and diastolic heart failure, history of complete heart block status post pacer placement, LBBB, PVD status post RLE angioplasty and stent placement March 11, 2022, CKD stage III, dyslipidemia, morbid obesity and recurrent falls presented 03/20 with severe ankle pain after a mechanical fall. She is being managed for the following: #. NONDISPLACED RIGHT FIBULAR FRACTURE, STATUS POST MECHANICAL FALL, likely on the background of age-related osteoporosis #. Recurrent falls Admitting C-spine CT/head CT/right knee x-ray with no acute findings. Osteopenia noted with C-spine. Admitting right ankle x-ray with osteopenia and subtle nondisplaced fracture of the distal fibula. 03/23 left knee x-ray: Unchanged alignment of the proximal fibular fracture, however mild distraction of the proximal tibial fracture fragments that has progressed from 10/04/2021. Follow-up is recommended. No acute fracture. Orthopedic evaluated, non surgical management, nonweightbearing RLE. Framed waffle boots, no pressure on the right heel. May use a high walking boot rather than the low walking boot provided to provide adequate stabilization during transfers. Follow-up with Ortho in 10 to 14 days. Pain management with tramadol as needed, Tylenol 1 g as needed, avoid opiates. PT/OT evaluation. Pain better controlled today. #. BILATERAL KNEE PAIN, STATUS POST MECHANICAL FALL Happened earlier morning 03/23 Bilateral knee x-rays: 1. Healing subacute fractures of the left proximal tibia and fibula. There is unchanged alignment of the proximal fibular fracture, however mild distraction of the proximal tibial fracture fragments has progressed from 10/04/2021. Follow- up is needed. 2. No acute fracture or dislocation of the right knee. 3. 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 Ortho reevaluated, continue with knee immobilizer, can be toe-touch weightbearing on LLE. Follow-up with Dr. Guzman in 2 weeks for new x-rays for reevaluation. #. Likely MILD TOXIC ENCEPHALOPATHY SECONDARY TO MORPHINE Avoid narcotics. Admitting CT head unrevealing. As needed tramadol Improving. #. Nausea, vomiting: Had multiple emesis 03/24 and concern for hematemesis, lipase was elevated, 03/25 CTAP with no acute findings. GI evaluated, avoid NSAIDs, once daily PPI. We will continue with bowel regimen. Patient with no belly pain and no tenderness on PA exam. Patient tolerating diet later in the day today. Advance diet as tolerated. We will resume DAPT and heparin prophylactic dose tomorrow after morning labs. #. UTI on rocephin 03/22 #. Other chronic medical conditions: CHF systolic and diastolic, CHB status post pacer, CKD stage III, peripheral arterial disease, ISAIAS on 3 L nasal cannula oxygen while sleeping. Continue with/resume home meds as and when appropriate. Continue with sliding scale, BLE with good pedal pulses. Patient is status post RLE angioplasty and stent placement on March 11, 2022. Will resume gabapentin #. DVT prophylaxis: Heparin subcu on hold. #. Disposition: Will likely need acute rehab or [facility] facility. Likely DC in next 2 days pending improvement in PO intake. Admission and Anticipated Discharge Date Admission Date: March 20, 2022 Subjective Patient seen and examined at bedside as a follow-up of closed right fibular fracture and encephalopathy likely secondary to morphine use. Patient was lying in bed, on room air, NAD, had multiple emesis overnight, lipase was elevated and CTAP without any acute findings. Patient was not nauseous in the morning at bedside exam and expressed interest to resume her diet. Diet advanced as tolerated. Patient reports pain better controlled today. Denies headache or dizziness. Patient denies chest pain or shortness of breath. Patient denies belly pain. No tenderness on abdominal palpation. Physical Exam Physical Exam: GENERAL: Alert and oriented x3. NAD, on RA. HEENT: No pallor, no icterus. Pupils equal, round and reactive to light. Oral mucosa moist. NECK: No JVD, no neck masses. HEART: S1 and S2 heard. Regular rate and rhythm. No murmur, no gallop. RESPIRATORY SYSTEM: Normal AP diameter. No accessory muscle use. No wheezing, no crackles. ABDOMEN: Soft, bowel sounds present, nontender, no distention. CENTRAL NERVOUS SYSTEM: No facial droop. Speech is clear. Obeys simple commands. Moves extremities. EXTREMITIES: No edema, no erythema seen. 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 LLE w/ knee support/immobilizer in place. Results & Data Results & Data ([facility]) Vital Signs (Past 12 Hours) Vital Signs Temp Pulse Pulse Resp BP Pulse Ox O2 Del Method 03/25/22 14:45 83 03/25/22 11:13 36.8 C 81 16 146/60 H 98 Nasal Cannula 03/25/22 07:40 37.0 C 85 16 111/71 98 Nasal Cannula O2 Flow Rate 03/25/22 14:45 03/25/22 11:13 3 03/25/22 07:40 3 (1) Closed right fibular fracture Encounter type: initial encounter Fibula location: distal Fracture morphology: unspecified fracture morphology Qualified Code(s): S82.831A - Other fracture of upper and lower end of right fibula, initial encounter for closed fracture
[2022-03-25] MEDS: MONTELUKAST SODIUM 10 MG TABLET PO SCH (21:24)
[2022-03-25] MEDS: LANTUS PER UNIT CHARGE SQ SCH (21:31)
[2022-03-25] MEDS: cefTRIAXone SODIUM 2,000 MG in DEXTROSE 5% 50 ML IV SCH (21:33)
[2022-03-26] MEDS: traMADol HCL 50 MG TABLET PO PRN ×2 (02:22→16:43)
[2022-03-26] MEDS: ACETAMINOPHEN 500 MG TAB PO SCH ×3 (06:13→20:22)
[2022-03-26] MEDS: PANTOprazole 40 MG TAB PO SCH (08:06)
[2022-03-26] MEDS: GABAPENTIN 100 MG CAP PO SCH ×2 (08:06→20:24)
[2022-03-26] MEDS: LOSARTAN POTASSIUM 50 MG TAB PO SCH (08:07)
[2022-03-26] MEDS: DOCUSATE SODIUM/SENNA 50/8.6MG TAB PO SCH (08:07)
[2022-03-26] MEDS: carvediloL 12.5 MG TAB PO SCH ×2 (08:07→20:23)
[2022-03-26] MEDS: ROSUVASTATIN CALCIUM 20 MG TAB PO SCH (08:07)
[2022-03-26] MEDS: CYANOCOBALAMIN (B-12) 100 MCG TABLET PO SCH (08:07)
[2022-03-26] MEDS: INSULIN ASPART PER UNIT SC SCH ×4 (08:09→20:31)
[2022-03-26 08:31] LABS: Hematocrit (blood only) 32.7 % (34.1-44.9); Hemoglobin 10.1 g/dl (12.0-16.0); Mean Corpuscular Hemoglobin 30.2 pg (25.0-34.0); Mean Corpuscular Hgb Conc 30.9 g/dL (32.0-36.0); Mean Corpuscular Volume 97.9 fL (80.0-100.0); Mean Platelet Volume 9.4 fL (9.4-12.3); Platelet Count 293 K/uL (130-400); RDW Standard Deviation 61.1 fL (36.4-46.3); Red Blood Count 3.34 M/uL (3.93-5.22); White Blood Count 7.56 K/ul (4.8-10.8)
[2022-03-26 08:54] LABS: BUN Creatinine Ratio 8.4 (10-20); Calcium 8.8 mg/dl (8.5-10.1); Creatinine Clr Calc Pharmacy 43.6 ml/min; Est GFR (African American) 45.7 ml/min; Est GFR (Non-African American) 39.5 ml/min; Magnesium 1.8 mg/dl (1.7-2.4); Phosphorus 3.1 mg/dl (2.5-4.9); Potassium 3.6 mmol/L (3.5-5.1)
[2022-03-26] MEDS: HEPARIN SOD 5,000 UNIT/0.5 ML VIAL SQ SCH (15:02)
--- NOTE | 2022-03-26 18:11 | Hospitalist Progress Note ---
Date of Service March 26, 2022 Assessment & Plan (1) Closed right fibular fracture: Plan: 76-year-old female with PMH of DM type II, asthma, severe sleep apnea on 3 L nasal cannula oxygen at bedtime, combined systolic and diastolic heart failure, history of complete heart block status post pacer placement, LBBB, PVD status post RLE angioplasty and stent placement March 11, 2022, CKD stage III, dyslipidemia, morbid obesity and recurrent falls presented 03/20 with severe ankle pain after a mechanical fall. She is being managed for the following: #. NONDISPLACED RIGHT FIBULAR FRACTURE, STATUS POST MECHANICAL FALL, likely on the background of age-related osteoporosis #. Recurrent falls Admitting C-spine CT/head CT/right knee x-ray with no acute findings. Osteopenia noted with C-spine. Admitting right ankle x-ray with osteopenia and subtle nondisplaced fracture of the distal fibula. 03/23 left knee x-ray: Unchanged alignment of the proximal fibular fracture, however mild distraction of the proximal tibial fracture fragments that has progressed from 10/04/2021. Follow-up is recommended. No acute fracture. Orthopedic evaluated, non surgical management, nonweightbearing RLE. Framed waffle boots, no pressure on the right heel. May use a high walking boot rather than the low walking boot provided to provide adequate stabilization during transfers. Follow-up with Ortho in 10 to 14 days. Pain management with tramadol as needed, Tylenol 1 g as needed, avoid opiates. PT/OT evaluation. Pain better controlled today. #. BILATERAL KNEE PAIN, STATUS POST MECHANICAL FALL Happened earlier morning 03/23 Bilateral knee x-rays: 1. Healing subacute fractures of the left proximal tibia and fibula. There is unchanged alignment of the proximal fibular fracture, however mild distraction of the proximal tibial fracture fragments has progressed from 10/04/2021. Follow- up is needed. 2. No acute fracture or dislocation of the right knee. 3. 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 Ortho reevaluated, continue with knee immobilizer, can be toe-touch weightbearing on LLE. Follow-up with Dr. Guzman in 2 weeks for new x-rays for reevaluation. #. Likely MILD TOXIC ENCEPHALOPATHY SECONDARY TO MORPHINE Avoid narcotics. Admitting CT head unrevealing. As needed tramadol Improved. #. Nausea, vomiting: Had multiple emesis 03/24 and concern for hematemesis, lipase was elevated, 03/25 CTAP with no acute findings. GI evaluated, avoid NSAIDs, once daily PPI. We will continue with bowel regimen. Patient with no belly pain and no tenderness on PA exam. Patient tolerating diet. Advance diet as tolerated. Continue to monitor hemoglobin. #. UTI on rocephin 03/22 #. Other chronic medical conditions: CHF systolic and diastolic, CHB status post pacer, CKD stage III, peripheral arterial disease, ISAIAS on 3 L nasal cannula oxygen while sleeping. Continue with/resume home meds as and when appropriate. Continue with sliding scale, BLE with good pedal pulses. Patient is status post RLE angioplasty and stent placement on March 11, 2022. Will resume gabapentin #. DVT prophylaxis: Heparin subcu on hold. #. Disposition: Will likely need acute rehab or jail facility. Likely will be stable for discharge in next day pending diet tolerance. Has bed for Tuesday at [facility] per . Admission and Anticipated Discharge Date Admission Date: March 20, 2022 Subjective Patient seen and examined at bedside as a follow-up of closed right fibular fracture and encephalopathy likely secondary to morphine use. Patient was lying in bed, on room air, NAD, no new acute events overnight, denies nausea or vomiting, reports feeling better, wants to advance her diet, advance diet as tolerated communicated to RN, patient reports pain better controlled today. Patient reports moving bowel. Denies headache or dizziness. Patient denies chest pain or shortness of breath. Patient denies belly pain. No tenderness on abdominal palpation. Physical Exam Physical Exam: GENERAL: Alert and oriented x3. NAD, on RA. HEENT: No pallor, no icterus. Pupils equal, round and reactive to light. Oral mucosa moist. NECK: No JVD, no neck masses. HEART: S1 and S2 heard. Regular rate and rhythm. No murmur, no gallop. RESPIRATORY SYSTEM: Normal AP diameter. No accessory muscle use. No wheezing, no crackles. ABDOMEN: Soft, bowel sounds present, nontender, no distention. CENTRAL NERVOUS SYSTEM: No facial droop. Speech is clear. Obeys simple commands. Moves extremities. EXTREMITIES: No edema, no erythema seen. 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 LLE w/ knee support/immobilizer in place. Results & Data Results & Data ([facility]) Vital Signs (Past 12 Hours) Vital Signs Temp Pulse Pulse BP Pulse Ox O2 Del Method O2 Flow Rate 03/26/22 16:32 78 03/26/22 07:00 84 03/26/22 08:37 36.8 C 78 125/73 100 Nasal Cannula 3 (1) Closed right fibular fracture Encounter type: initial encounter Fibula location: distal Fracture morphology: unspecified fracture morphology Qualified Code(s): S82.831A - Other fracture of upper and lower end of right fibula, initial encounter for closed fracture
[2022-03-26] MEDS: MONTELUKAST SODIUM 10 MG TABLET PO SCH (20:22)
[2022-03-26] MEDS: LANTUS PER UNIT CHARGE SQ SCH (20:31)
[2022-03-26] MEDS: cefTRIAXone SODIUM 2,000 MG in DEXTROSE 5% 50 ML IV SCH (20:46)
[2022-03-27] MEDS: HEPARIN SOD 5,000 UNIT/0.5 ML VIAL SQ SCH ×4 (00:05→21:09)
[2022-03-27] MEDS: ACETAMINOPHEN 500 MG TAB PO SCH ×3 (06:10→21:08)
[2022-03-27 08:39] LABS: Hematocrit (blood only) 29.3 % (34.1-44.9); Hemoglobin 9.3 g/dl (12.0-16.0); Mean Corpuscular Hemoglobin 30.8 pg (25.0-34.0); Mean Corpuscular Hgb Conc 31.7 g/dL (32.0-36.0); Mean Platelet Volume 9.4 fL (9.4-12.3); Platelet Count 282 K/uL (130-400); RDW Coefficient of Variation 17.2 % (11.5-14.5); RDW Standard Deviation 61.2 fL (36.4-46.3); Red Blood Count 3.02 M/uL (3.93-5.22); White Blood Count 7.55 K/ul (4.8-10.8)
[2022-03-27] MEDS: LOSARTAN POTASSIUM 50 MG TAB PO SCH (09:09)
[2022-03-27] MEDS: ROSUVASTATIN CALCIUM 20 MG TAB PO SCH (09:09)
[2022-03-27] MEDS: GABAPENTIN 100 MG CAP PO SCH ×2 (09:09→21:08)
[2022-03-27] MEDS: PANTOprazole 40 MG TAB PO SCH (09:09)
[2022-03-27] MEDS: carvediloL 12.5 MG TAB PO SCH ×2 (09:09→21:07)
[2022-03-27] MEDS: DOCUSATE SODIUM/SENNA 50/8.6MG TAB PO SCH (09:10)
[2022-03-27] MEDS: CYANOCOBALAMIN (B-12) 100 MCG TABLET PO SCH (09:10)
[2022-03-27] MEDS: ASPIRIN 81 MG ECTAB PO SCH (09:10)
[2022-03-27] MEDS: CLOPIDOGREL BISULFATE 75 MG TAB PO SCH (09:10)
[2022-03-27] MEDS: INSULIN ASPART PER UNIT SC SCH ×4 (09:12→21:40)
[2022-03-27] MEDS: traMADol HCL 50 MG TABLET PO PRN ×2 (09:17→14:58)
[2022-03-27 09:49] LABS: BUN Creatinine Ratio 9.1 (10-20); Calcium 8.2 mg/dl (8.5-10.1); Creatinine Clr Calc Pharmacy 46.5 ml/min; Est GFR (African American) 50.3 ml/min; Est GFR (Non-African American) 43.4 ml/min; Magnesium 1.7 mg/dl (1.7-2.4); Potassium 3.6 mmol/L (3.5-5.1)
--- NOTE | 2022-03-27 16:12 | Hospitalist Progress Note ---
Date of Service March 27, 2022 Assessment & Plan (1) Closed right fibular fracture: Plan: 76-year-old female with PMH of DM type II, asthma, severe sleep apnea on 3 L nasal cannula oxygen at bedtime, combined systolic and diastolic heart failure, history of complete heart block status post pacer placement, LBBB, PVD status post RLE angioplasty and stent placement March 11, 2022, CKD stage III, dyslipidemia, morbid obesity and recurrent falls presented 03/20 with severe ankle pain after a mechanical fall. She is being managed for the following: #. NONDISPLACED RIGHT FIBULAR FRACTURE, STATUS POST MECHANICAL FALL, likely on the background of age-related osteoporosis #. Recurrent falls Admitting C-spine CT/head CT/right knee x-ray with no acute findings. Osteopenia noted with C-spine. Admitting right ankle x-ray with osteopenia and subtle nondisplaced fracture of the distal fibula. 03/23 left knee x-ray: Unchanged alignment of the proximal fibular fracture, however mild distraction of the proximal tibial fracture fragments that has progressed from 10/04/2021. Follow-up is recommended. No acute fracture. Orthopedic evaluated, non surgical management, nonweightbearing RLE. Framed waffle boots, no pressure on the right heel. May use a high walking boot rather than the low walking boot provided to provide adequate stabilization during transfers. Follow-up with Ortho in 10 to 14 days. Pain management with tramadol as needed, Tylenol 1 g as needed, avoid opiates. PT/OT evaluation. Pain better controlled today. f/u Vitamin D level. #. BILATERAL KNEE PAIN, STATUS POST MECHANICAL FALL Happened earlier morning 03/23 Bilateral knee x-rays: 1. Healing subacute fractures of the left proximal tibia and fibula. There is unchanged alignment of the proximal fibular fracture, however mild distraction of the proximal tibial fracture fragments has progressed from 10/04/2021. Follow- up is needed. 2. No acute fracture or dislocation of the right knee. 3. 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 Ortho reevaluated, continue with knee immobilizer, can be toe-touch weightbearing on LLE. Follow-up with Dr. Guzman in 2 weeks for new x-rays for reevaluation. #. Likely MILD TOXIC ENCEPHALOPATHY SECONDARY TO MORPHINE Avoid narcotics. Admitting CT head unrevealing. As needed tramadol Improved. #. Nausea, vomiting: Had multiple emesis 03/24 and concern for hematemesis, lipase was elevated, 03/25 CTAP with no acute findings. GI evaluated, avoid NSAIDs, once daily PPI. We will continue with bowel regimen. Patient with no belly pain and no tenderness on PA exam. Patient tolerating diet well. Continue to monitor hemoglobin. #. UTI on rocephin 03/22, dcd today. #. Other chronic medical conditions: CHF systolic and diastolic, CHB status p ost pacer, CKD stage III, peripheral arterial disease, ISAIAS on 3 L nasal cannula oxygen while sleeping. Continue with/resume home meds as and when appropriate. Continue with sliding scale, BLE with good pedal pulses. Patient is status post RLE angioplasty and stent placement on March 11, 2022. c/w gabapentin #. DVT prophylaxis: Heparin subcu #. Disposition: Will likely need acute rehab or long-term facility. Stable for MS. [facility]. Admission and Anticipated Discharge Date Admission Date: March 20, 2022 Subjective Patient seen and examined at bedside as a follow-up of closed right fibular fracture and encephalopathy likely secondary to morphine use. Patient was lying in bed, on 3 L NC O2, NAD, no new acute events overnight, denies nausea or vomiting, reports feeling better, tolerating diet well, patient reports pain better controlled today. Patient asking for laxative. Denies headache or dizziness. Patient denies chest pain or shortness of breath. Patient denies belly pain. No tenderness on abdominal palpation. Physical Exam Physical Exam: GENERAL: Alert and oriented x3. NAD, on 3L NC O2 HEENT: No pallor, no icterus. Pupils equal, round and reactive to light. Oral mucosa moist. NECK: No JVD, no neck masses. HEART: S1 and S2 heard. Regular rate and rhythm. No murmur, no gallop. RESPIRATORY SYSTEM: Normal AP diameter. No accessory muscle use. No wheezing, no crackles. ABDOMEN: Soft, bowel sounds present, nontender, no distention. CENTRAL NERVOUS SYSTEM: No facial droop. Speech is clear. Obeys simple commands. Moves extremities. EXTREMITIES: No edema, no erythema seen. 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 LLE w/ knee support/immobilizer in place. Results & Data Results & Data ([facility]) Vital Signs (Past 12 Hours) Vital Signs Temp Pulse Pulse Resp BP BP Pulse Ox 03/27/22 15:18 36.6 C 76 18 114/57 L 94 03/27/22 08:00 82 03/27/22 08:00 03/27/22 11:22 36.8 C 76 20 136/73 100 03/27/22 07:44 36.7 C 77 18 108/68 99 O2 Del Method O2 Flow Rate 03/27/22 15:18 Nasal Cannula 3 03/27/22 08:00 03/27/22 08:00 Room Air 03/27/22 11:22 Nasal Cannula 3 03/27/22 07:44 Nasal Cannula 3 (1) Closed right fibular fracture Encounter type: initial encounter Fibula location: distal Fracture morphology: unspecified fracture morphology Qualified Code(s): S82.831A - Other fracture of upper and lower end of right fibula, initial encounter for closed fracture
[2022-03-27] MEDS: MONTELUKAST SODIUM 10 MG TABLET PO SCH (21:07)
[2022-03-27] MEDS: LANTUS PER UNIT CHARGE SQ SCH (21:39)
[2022-03-28] MEDS: ACETAMINOPHEN 500 MG TAB PO SCH ×3 (05:44→20:59)
[2022-03-28] MEDS: HEPARIN SOD 5,000 UNIT/0.5 ML VIAL SQ SCH ×3 (05:44→20:59)
[2022-03-28 09:07] LABS: Hematocrit (blood only) 32.2 % (34.1-44.9); Hemoglobin 9.7 g/dl (12.0-16.0)
[2022-03-28] MEDS: ROSUVASTATIN CALCIUM 20 MG TAB PO SCH (09:35)
[2022-03-28] MEDS: PANTOprazole 40 MG TAB PO SCH (09:35)
[2022-03-28] MEDS: GABAPENTIN 100 MG CAP PO SCH ×2 (09:35→21:00)
[2022-03-28] MEDS: LOSARTAN POTASSIUM 50 MG TAB PO SCH (09:36)
[2022-03-28] MEDS: DOCUSATE SODIUM/SENNA 50/8.6MG TAB PO SCH (09:36)
[2022-03-28] MEDS: carvediloL 12.5 MG TAB PO SCH ×2 (09:36→20:58)
[2022-03-28] MEDS: CLOPIDOGREL BISULFATE 75 MG TAB PO SCH (09:36)
[2022-03-28] MEDS: CYANOCOBALAMIN (B-12) 100 MCG TABLET PO SCH (09:36)
[2022-03-28] MEDS: ASPIRIN 81 MG ECTAB PO SCH (09:36)
[2022-03-28] MEDS: INSULIN ASPART PER UNIT SC SCH ×4 (09:49→20:57)
[2022-03-28] MEDS: FUROSEMIDE 40 MG TAB PO SCH (11:28)
--- NOTE | 2022-03-28 17:00 | Hospitalist Progress Note ---
Date of Service March 28, 2022 Assessment & Plan (1) Closed right fibular fracture: Plan: 76-year-old female with PMH of DM type II, asthma, severe sleep apnea on 3 L nasal cannula oxygen at bedtime, combined systolic and diastolic heart failure, history of complete heart block status post pacer placement, LBBB, PVD status post RLE angioplasty and stent placement March 11, 2022, CKD stage III, dyslipidemia, morbid obesity and recurrent falls presented 03/20 with severe ankle pain after a mechanical fall. She is being managed for the following: #. NONDISPLACED RIGHT FIBULAR FRACTURE, STATUS POST MECHANICAL FALL, likely on the background of age-related osteoporosis #. Recurrent falls Admitting C-spine CT/head CT/right knee x-ray with no acute findings. Osteopenia noted with C-spine. Admitting right ankle x-ray with osteopenia and subtle nondisplaced fracture of the distal fibula. 03/23 left knee x-ray: Unchanged alignment of the proximal fibular fracture, however mild distraction of the proximal tibial fracture fragments that has progressed from 10/04/2021. Follow-up is recommended. No acute fracture. Orthopedic evaluated, non surgical management, nonweightbearing RLE. Framed waffle boots, no pressure on the right heel. May use a high walking boot rather than the low walking boot provided to provide adequate stabilization during transfers. Follow-up with Ortho in 10 to 14 days. Pain management with tramadol as needed, Tylenol 1 g as needed, avoid opiates. PT/OT evaluation. Pain better controlled today. Vitamin D level low normal, can use vitamin D supplement. #. BILATERAL KNEE PAIN, STATUS POST MECHANICAL FALL Happened earlier morning 03/23 Bilateral knee x-rays: 1. Healing subacute fractures of the left proximal tibia and fibula. There is unchanged alignment of the proximal fibular fracture, however mild distraction of the proximal tibial fracture fragments has progressed from 10/04/2021. Follow- up is needed. 2. No acute fracture or dislocation of the right knee. 3. 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 Ortho reevaluated, continue with knee immobilizer, can be toe-touch weightbearing on LLE. Follow-up with Dr. Guzman in 2 weeks for new x-rays for reevaluation. #. Likely MILD TOXIC ENCEPHALOPATHY SECONDARY TO MORPHINE Avoid narcotics. Admitting CT head unrevealing. As needed tramadol Improved. #. Nausea, vomiting: Had multiple emesis 03/24 and concern for hematemesis, lipase was elevated, 03/25 CTAP with no acute findings. GI evaluated, avoid NSAIDs, once daily PPI. We will continue with bowel regimen. Patient with no belly pain and no tenderness on PA exam. Patient tolerating diet well. Continue to monitor hemoglobin. #. UTI status post Rocephin course. #. Other chronic medical conditions: CHF systolic and diastolic, CHB status post pacer, CKD stage III, peripheral arterial disease, ISAIAS on 3 L nasal cannula oxygen while sleeping. Continue with/resume home meds as and when appropriate. Continue with sliding scale, BLE with good pedal pulses. Patient is status post RLE angioplasty and stent placement on March 11, 2022. c/w gabapentin #. DVT prophylaxis: Heparin subcu #. Disposition: Will likely need acute rehab or halfway facility. Stable for [place]. Has bed for Tuesday at [facility]. Admission and Anticipated Discharge Date Admission Date: March 20, 2022 Subjective Patient seen and examined at bedside as a follow-up of closed right fibular fracture and encephalopathy likely secondary to morphine use. Patient was lying in bed, on RA, NAD, no new acute events overnight, denies nausea or vomiting, reports feeling better, tolerating diet well, patient reports pain better controlled today. Per RN, patient is eating and moving bowels okay. Denies headache or dizziness. Patient denies chest pain or shortness of breath. Patient denies belly pain. No tenderness on abdominal palpation. Physical Exam Physical Exam: GENERAL: Alert and oriented x3. NAD, on room air HEENT: No pallor, no icterus. Pupils equal, round and reactive to light. Oral mucosa moist. NECK: No JVD, no neck masses. HEART: S1 and S2 heard. Regular rate and rhythm. No murmur, no gallop. RESPIRATORY SYSTEM: Normal AP diameter. No accessory muscle use. No wheezing, no crackles. ABDOMEN: Soft, bowel sounds present, nontender, no distention. CENTRAL NERVOUS SYSTEM: No facial droop. Speech is clear. Obeys simple commands. Moves extremities. EXTREMITIES: No edema, no erythema seen. 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 LLE w/ knee support/immobilizer in place. Results & Data Results & Data ([facility]) Vital Signs (Past 12 Hours) Vital Signs Temp Pulse Resp BP Pulse Ox O2 Del Method O2 Flow Rate 03/28/22 07:54 36.5 C 78 18 110/67 100 Nasal Cannula 3 (1) Closed right fibular fracture Encounter type: initial encounter Fibula location: distal Fracture morphology: unspecified fracture morphology Qualified Code(s): S82.831A - Other fracture of upper and lower end of right fibula, initial encounter for closed fracture
[2022-03-28] MEDS: LANTUS PER UNIT CHARGE SQ SCH (20:58)
[2022-03-28] MEDS: MONTELUKAST SODIUM 10 MG TABLET PO SCH (21:00)
[2022-03-29] MEDS: ACETAMINOPHEN 500 MG TAB PO SCH ×3 (05:14→20:55)
[2022-03-29] MEDS: HEPARIN SOD 5,000 UNIT/0.5 ML VIAL SQ SCH ×3 (05:15→20:55)
[2022-03-29] MEDS: ASPIRIN 81 MG ECTAB PO SCH (10:23)
[2022-03-29] MEDS: GABAPENTIN 100 MG CAP PO SCH ×2 (10:24→20:48)
[2022-03-29] MEDS: LOSARTAN POTASSIUM 50 MG TAB PO SCH (10:24)
[2022-03-29] MEDS: FUROSEMIDE 40 MG TAB PO SCH (10:24)
[2022-03-29] MEDS: CLOPIDOGREL BISULFATE 75 MG TAB PO SCH (10:24)
[2022-03-29] MEDS: CYANOCOBALAMIN (B-12) 100 MCG TABLET PO SCH (10:24)
[2022-03-29] MEDS: ROSUVASTATIN CALCIUM 20 MG TAB PO SCH (10:25)
[2022-03-29] MEDS: PANTOprazole 40 MG TAB PO SCH (10:25)
[2022-03-29] MEDS: DOCUSATE SODIUM/SENNA 50/8.6MG TAB PO SCH (10:25)
[2022-03-29] MEDS: INSULIN ASPART PER UNIT SC SCH ×4 (10:30→20:45)
[2022-03-29] MEDS: carvediloL 12.5 MG TAB PO SCH ×2 (10:35→20:48)
[2022-03-29] MEDS: CHOLECALCIFEROL 1,000 UNITS 25 MCG TAB PO SCH (10:35)
[2022-03-29] MEDS: traMADol HCL 50 MG TABLET PO PRN (12:30)
[2022-03-29] MEDS ORDERED: COVID-19 VACC, TRIS(PFIZER)/PF 30 MCG/0.3 ML VIAL IM ONE (14:13)
--- NOTE | 2022-03-29 17:48 | Hospitalist Progress Note ---
Date of Service March 29, 2022 Assessment & Plan (1) Closed right fibular fracture: Plan: 76-year-old female with PMH of DM type II, asthma, severe sleep apnea on 3 L nasal cannula oxygen at bedtime, combined systolic and diastolic heart failure, history of complete heart block status post pacer placement, LBBB, PVD status post RLE angioplasty and stent placement March 11, 2022, CKD stage III, dyslipidemia, morbid obesity and recurrent falls presented 03/20 with severe ankle pain after a mechanical fall. She is being managed for the following: #. NONDISPLACED RIGHT FIBULAR FRACTURE, STATUS POST MECHANICAL FALL, likely on the background of age-related osteoporosis #. Recurrent falls Admitting C-spine CT/head CT/right knee x-ray with no acute findings. Osteopenia noted with C-spine. Admitting right ankle x-ray with osteopenia and subtle nondisplaced fracture of the distal fibula. 03/23 left knee x-ray: Unchanged alignment of the proximal fibular fracture, however mild distraction of the proximal tibial fracture fragments that has progressed from 10/04/2021. Follow-up is recommended. No acute fracture. Orthopedic evaluated, non surgical management, nonweightbearing RLE. Framed waffle boots, no pressure on the right heel. May use a high walking boot rather than the low walking boot provided to provide adequate stabilization during transfers. Follow-up with Ortho in 10 to 14 days. Pain management with tramadol as needed, Tylenol 1 g as needed, avoid opiates. Will DC morphine upon discharge. PT/OT evaluation. Pain better controlled today. Pt takes Gabapentin 300 mg in AM, 300 mg in afternoon and 200 mg before bedtime, will gradually increase gabapentin towards home dose. Vitamin D level low normal, can use vitamin D supplement. #. BILATERAL KNEE PAIN, STATUS POST MECHANICAL FALL Happened earlier morning 03/23 Bilateral knee x-rays: 1. Healing subacute fractures of the left proximal tibia and fibula. There is unchanged alignment of the proximal fibular fracture, however mild distraction of the proximal tibial fracture fragments has progressed from 10/04/2021. Follow- up is needed. 2. No acute fracture or dislocation of the right knee. 3. 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 Ortho reevaluated, continue with knee immobilizer, can be toe-touch weightbearing on LLE. Follow-up with Dr. Guzman in 2 weeks for new x-rays for reevaluation. #. Likely MILD TOXIC ENCEPHALOPATHY SECONDARY TO MORPHINE Avoid narcotics. Admitting CT head unrevealing. As needed tramadol Improved. #. Nausea, vomiting: Had multiple emesis 03/24 and concern for hematemesis, lipase was elevated, 03/25 CTAP with no acute findings. GI evaluated, avoid NSAIDs, once daily PPI. We will continue with bowel regimen. Patient with no belly pain and no tenderness on PA exam. Patient tolerating diet well. Continue to monitor hemoglobin. #. UTI status post Rocephin course. #. Other chronic medical conditions: CHF systolic and diastolic, CHB status post pacer, CKD stage III, peripheral arterial disease, ISAIAS on 3 L nasal cannula oxygen while sleeping. Continue with/resume home meds as and when appropriate. Continue with sliding scale, BLE with good pedal pulses. Patient is status post RLE angioplasty and stent placement on March 11, 2022. c/w gabapentin #. DVT prophylaxis: Heparin subcu #. Disposition: Will likely need acute rehab or retirement facility. Stable for [place]. Has bed for Tuesday at [facility] per . Admission and Anticipated Discharge Date Admission Date: March 20, 2022 Subjective Patient seen and examined at bedside as a follow-up of closed right fibular fracture and encephalopathy likely secondary to morphine use. Patient was lying in bed, on RA, NAD, no new acute events overnight, denies nausea or vomiting, reports eating better, patient reports pain under control. Per RN, patient is eating and moving bowels okay. Denies headache or dizziness. Patient denies chest pain or shortness of breath. Patient denies belly pain. No tenderness on abdominal palpation. Physical Exam Physical Exam: GENERAL: Alert and oriented x3. NAD, on room air HEENT: No pallor, no icterus. Pupils equal, round and reactive to light. Oral mucosa moist. NECK: No JVD, no neck masses. HEART: S1 and S2 heard. Regular rate and rhythm. No murmur, no gallop. RESPIRATORY SYSTEM: Normal AP diameter. No accessory muscle use. No wheezing, no crackles. ABDOMEN: Soft, bowel sounds present, nontender, no distention. CENTRAL NERVOUS SYSTEM: No facial droop. Speech is clear. Obeys simple commands. Moves extremities. EXTREMITIES: No edema, no erythema seen. 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 LLE w/ knee support/immobilizer in place. Results & Data Results & Data ([facility]) Vital Signs (Past 12 Hours) Vital Signs Temp Pulse Resp BP Pulse Ox O2 Del Method 03/29/22 07:39 36.7 C 80 20 120/77 94 Room Air (1) Closed right fibular fracture Encounter type: initial encounter Fibula location: distal Fracture morphology: unspecified fracture morphology Qualified Code(s): S82.831A - Other fracture of upper and lower end of right fibula, initial encounter for closed fracture
[2022-03-29] MEDS: LANTUS PER UNIT CHARGE SQ SCH (20:46)
[2022-03-29] MEDS: MONTELUKAST SODIUM 10 MG TABLET PO SCH (20:47)
[2022-03-30] MEDS: traMADol HCL 50 MG TABLET PO PRN (03:48)
[2022-03-30] MEDS: HEPARIN SOD 5,000 UNIT/0.5 ML VIAL SQ SCH ×3 (05:49→20:04)
[2022-03-30] MEDS: ACETAMINOPHEN 500 MG TAB PO SCH ×3 (05:53→21:09)
[2022-03-30] MEDS: GABAPENTIN 100 MG CAP PO SCH ×2 (08:42→20:04)
[2022-03-30] MEDS: CLOPIDOGREL BISULFATE 75 MG TAB PO SCH (08:42)
[2022-03-30] MEDS: CYANOCOBALAMIN (B-12) 100 MCG TABLET PO SCH (08:42)
[2022-03-30] MEDS: MAGNESIUM OXIDE 400 MG TAB PO SCH (08:42)
[2022-03-30] MEDS: CHOLECALCIFEROL 1,000 UNITS 25 MCG TAB PO SCH (08:42)
[2022-03-30] MEDS: carvediloL 12.5 MG TAB PO SCH ×2 (08:42→20:03)
[2022-03-30] MEDS: PANTOprazole 40 MG TAB PO SCH (08:43)
[2022-03-30] MEDS: ASPIRIN 81 MG ECTAB PO SCH (08:43)
[2022-03-30] MEDS: ROSUVASTATIN CALCIUM 20 MG TAB PO SCH (08:43)
[2022-03-30] MEDS: DOCUSATE SODIUM/SENNA 50/8.6MG TAB PO SCH (08:43)
[2022-03-30] MEDS: FUROSEMIDE 40 MG TAB PO SCH (08:43)
[2022-03-30] MEDS: LOSARTAN POTASSIUM 50 MG TAB PO SCH (08:43)
[2022-03-30] MEDS ORDERED: FUROSEMIDE 40 MG TAB PO SCH (09:00)
[2022-03-30] MEDS: INSULIN ASPART PER UNIT SC SCH ×4 (09:35→21:05)
--- NOTE | 2022-03-30 17:43 | Hospitalist Progress Note ---
Date of Service March 30, 2022 Assessment & Plan (1) Closed right fibular fracture: Plan: 76-year-old female with PMH of DM type II, asthma, severe sleep apnea on 3 L nasal cannula oxygen at bedtime, combined systolic and diastolic heart failure, history of complete heart block status post pacer placement, LBBB, PVD status post RLE angioplasty and stent placement March 11, 2022, CKD stage III, dyslipidemia, morbid obesity and recurrent falls presented 03/20 with severe ankle pain after a mechanical fall. She is being managed for the following: #. NONDISPLACED RIGHT FIBULAR FRACTURE, STATUS POST MECHANICAL FALL, likely on the background of age-related osteoporosis #. Recurrent falls Admitting C-spine CT/head CT/right knee x-ray with no acute findings. Osteopenia noted with C-spine. Admitting right ankle x-ray with osteopenia and subtle nondisplaced fracture of the distal fibula. 03/23 left knee x-ray: Unchanged alignment of the proximal fibular fracture, however mild distraction of the proximal tibial fracture fragments that has progressed from 10/04/2021. Follow-up is recommended. No acute fracture. Orthopedic evaluated, non surgical management, nonweightbearing RLE. Framed waffle boots, no pressure on the right heel. May use a high walking boot rather than the low walking boot provided to provide adequate stabilization during transfers. Follow-up with Ortho in 10 to 14 days. Pain management with tramadol as needed, Tylenol 1 g as needed, avoid opiates. Will DC morphine upon discharge. PT/OT evaluation. Pain better controlled today. Pt takes Gabapentin 300 mg in AM, 300 mg in afternoon and 200 mg before bedtime, will gradually increase gabapentin towards home dose. Vitamin D level low normal, can use vitamin D supplement. #. BILATERAL KNEE PAIN, STATUS POST MECHANICAL FALL Happened earlier morning 03/23 Bilateral knee x-rays: 1. Healing subacute fractures of the left proximal tibia and fibula. There is unchanged alignment of the proximal fibular fracture, however mild distraction of the proximal tibial fracture fragments has progressed from 10/04/2021. Follow- up is needed. 2. No acute fracture or dislocation of the right knee. 3. 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 Ortho reevaluated, continue with knee immobilizer, can be toe-touch weightbearing on LLE. Follow-up with Dr. Guzman in 2 weeks for new x-rays for reevaluation. #. Likely MILD TOXIC ENCEPHALOPATHY SECONDARY TO MORPHINE Avoid narcotics. Admitting CT head unrevealing. As needed tramadol Improved. #. Nausea, vomiting: Had multiple emesis 03/24 and concern for hematemesis, lipase was elevated, 03/25 CTAP with no acute findings. GI evaluated, avoid NSAIDs, once daily PPI. We will continue with bowel regimen. Patient with no belly pain and no tenderness on PA exam. Patient tolerating diet well. Continue to monitor hemoglobin. #. UTI status post Rocephin course. #. Other chronic medical conditions: CHF systolic and diastolic, CHB status post pacer, CKD stage III, peripheral arterial disease, ISAIAS on 3 L nasal cannula oxygen while sleeping. Continue with/resume home meds as and when appropriate. Continue with sliding scale, BLE with good pedal pulses. Patient is status post RLE angioplasty and stent placement on March 11, 2022. c/w gabapentin #. DVT prophylaxis: Heparin subcu #. Disposition: Will likely need acute rehab or [facility] facility. Stable for [place]. Likely will get bed at [facility]. Admission and Anticipated Discharge Date Admission Date: March 20, 2022 Subjective Patient seen and examined at bedside as a follow-up of closed right fibular fracture and encephalopathy likely secondary to morphine use. Patient was lying in bed, on RA, NAD, no new acute events overnight, denies nausea or vomiting, reports eating better, patient reports pain better controlled. Per RN, patient is eating and moving bowels okay. Denies headache or dizziness. Patient denies chest pain or shortness of breath. Patient denies belly pain. No tenderness on abdominal palpation. Physical Exam Physical Exam: GENERAL: Alert and oriented x3. NAD, on room air HEENT: No pallor, no icterus. Pupils equal, round and reactive to light. Oral mucosa moist. NECK: No JVD, no neck masses. HEART: S1 and S2 heard. Regular rate and rhythm. No murmur, no gallop. RESPIRATORY SYSTEM: Normal AP diameter. No accessory muscle use. No wheezing, no crackles. ABDOMEN: Soft, bowel sounds present, nontender, no distention. CENTRAL NERVOUS SYSTEM: No facial droop. Speech is clear. Obeys simple commands. Moves extremities. EXTREMITIES: No edema, no erythema seen. 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 LLE w/ knee support/immobilizer in place. Results & Data Results & Data ([facility]) Vital Signs (Past 12 Hours) Vital Signs Temp Pulse Resp BP BP Pulse Ox O2 Del Method 03/30/22 15:46 36.8 C 74 16 109/70 93 Room Air 03/30/22 07:53 Nasal Cannula 03/30/22 08:11 36.7 C 73 16 139/75 99 Nasal Cannula O2 Flow Rate 03/30/22 15:46 03/30/22 07:53 3 03/30/22 08:11 3 (1) Closed right fibular fracture Encounter type: initial encounter Fibula location: distal Fracture morphology: unspecified fracture morphology Qualified Code(s): S82.831A - Other fracture of upper and lower end of right fibula, initial encounter for closed fracture
[2022-03-30] MEDS: MONTELUKAST SODIUM 10 MG TABLET PO SCH (20:04)
[2022-03-30] MEDS: LANTUS PER UNIT CHARGE SQ SCH (21:06)
[2022-03-31] MEDS: ACETAMINOPHEN 500 MG TAB PO SCH (05:54)
[2022-03-31] MEDS: HEPARIN SOD 5,000 UNIT/0.5 ML VIAL SQ SCH (05:54)
[2022-03-31] MEDS: CYANOCOBALAMIN (B-12) 100 MCG TABLET PO SCH (09:33)
[2022-03-31] MEDS: MAGNESIUM OXIDE 400 MG TAB PO SCH (09:33)
[2022-03-31] MEDS: ASPIRIN 81 MG ECTAB PO SCH (09:33)
[2022-03-31] MEDS: carvediloL 12.5 MG TAB PO SCH (09:33)
[2022-03-31] MEDS: DOCUSATE SODIUM/SENNA 50/8.6MG TAB PO SCH (09:33)
[2022-03-31] MEDS: ROSUVASTATIN CALCIUM 20 MG TAB PO SCH (09:33)
[2022-03-31] MEDS: CHOLECALCIFEROL 1,000 UNITS 25 MCG TAB PO SCH (09:33)
[2022-03-31] MEDS: INSULIN ASPART PER UNIT SC SCH (09:33)
[2022-03-31] MEDS: GABAPENTIN 100 MG CAP PO SCH (09:33)
[2022-03-31] MEDS: FUROSEMIDE 40 MG TAB PO SCH (09:33)
[2022-03-31] MEDS: LOSARTAN POTASSIUM 50 MG TAB PO SCH (09:33)
[2022-03-31] MEDS: PANTOprazole 40 MG TAB PO SCH (09:34)
[2022-03-31] MEDS: CLOPIDOGREL BISULFATE 75 MG TAB PO SCH (09:34)
--- NOTE | 2022-03-31 13:27 | Discharge Summary ---
Date of Service March 31, 2022 Admission HPI Per Admitting Provider 76-year-old female with history of congestive heart failure, systolic and diastolic type, complete heart block, status post pacemaker, diabetes type 2, CKD stage III, peripheral arterial disease, status post right lower extremity angioplasty and stent placement March 11, 2022, presenting with severe right ankle pain after a mechanical fall this afternoon. Patient was recently admitted to [facility] and transferred to [facility] for management of right lower extremity cellulitis/toe infection, in the setting of peripheral artery disease. Patient underwent right lower extremity angioplasty and stent placement last March 11, 2022. She was also treated for acute metabolic encephalopathy secondary to narcotics, ELOY. She was then discharged to home last Tuesday. According to patient's who is the primary care provider, patient was doing well until yesterday when she started to take morphine ER twice a day which was prescribed upon discharge from [facility]. Later yesterday, patient was noted to be incoherent, not herself according to the . The morning of presentation, the patient upon getting up from bed unfortunately fell on her knees and ultimately landing on her buttocks. EMS was called as patient's could not help her up. While being assisted to return to her walker, the patient had another fall. After which she reported severe right ankle pain. At the ER, the patient was received with stable vital signs. Imaging studies revealed nondisplaced right distal fibular fracture. Patient was given fentanyl IV for severe pain. Denies shortness of breath, chest pain palpitations, dizziness, nausea vomiting, headache, fevers or chills. Admission Exam Per Admitting Provider General- oriented x 2-3, not in distress, speaks in sentences with no effort or accessory muscle use Uncomfortable secondary to severe pain Morbidly obese Head- atraumatic Eyes- PERRL, EOMI, anicteric ENT- oropharynx clear Neck- supple, no JVD, no adenopathy, no thyromegaly; carotids +2/2, no bruits appreciated Lungs- clear to auscultation bilaterally, no rales/wheezes Heart- normal rate, regular rhythm; no murmur, no gallop, no rub appreciated Abdomen- normal bowel sounds, nondistended, soft, nontender, no masses or hepatosplenomegaly Extremities- no pretibial edema, no calf tenderness; peripheral pulses intact Right foot: Moderate tenderness on the ankle region, no erythema/hematoma Positive dry gangrene on bilateral toes Neuro- alert, oriented x 2-3; CN 2-12 grossly intact; motor 5/5 bilaterally;sensation 100% on all extremities; no other gross focal neurologic deficits Skin- warm & dry Principal Diagnosis NONDISPLACED RIGHT FIBULAR FRACTURE Discharge Exam GENERAL: Alert and oriented x3. NAD, on room air HEENT: No pallor, no icterus. Pupils equal, round and reactive to light. Oral mucosa moist. NECK: No JVD, no neck masses. HEART: S1 and S2 heard. Regular rate and rhythm. No murmur, no gallop. RESPIRATORY SYSTEM: Normal AP diameter. No accessory muscle use. No wheezing, no crackles. ABDOMEN: Soft, bowel sounds present, nontender, no distention. CENTRAL NERVOUS SYSTEM: No facial droop. Speech is clear. Obeys simple commands. Moves extremities. EXTREMITIES: No edema, no erythema seen. 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 LLE w/ knee support/immobilizer in place. Discharge Data Allergies Allergy/AdvReac Type Severity Reaction Status Date / Time fluticasone Allergy Severe WATER ON Verified 03/20/22 17:12 LUNGS salmeterol Allergy Severe WATER ON Verified 03/20/22 17:12 LUNGS propoxyphene Allergy Mild FROM Verified 03/20/22 17:12 DARVOCET benzocaine Allergy Unknown Unknown Verified 03/20/22 17:12 mold Allergy Unknown Unknown Verified 03/20/22 17:12 acetaminophen [From Vicodin] AdvReac Intermediate hallucinati Verified 03/02/22 17:13 ons hydrocodone [From Vicodin] AdvReac Intermediate hallucinati Verified 03/20/22 17:12 ons oxycodone AdvReac Intermediate Hallucinati Verified 03/20/22 17:12 ng prednisone AdvReac Intermediate HYPERGLYCEM Verified 03/20/22 17:12 IA Consultations 03/20/22 14:58 ED Decision to Admit Stat 03/20/22 16:23 Consult Orthopedic Surgery Stat 03/25/22 03:07 Consult Gastroenterology Routine Ordered Studies 03/20/22 11:19 CT cervical spine wo con Stat CT head/brain wo con Stat 03/25/22 00:46 CT abd pelvis wo con Urgent Hospital Course (1) Closed right fibular fracture: 76-year-old female with PMH of DM type II, asthma, severe sleep apnea on 3 L wai al cannula oxygen at bedtime, combined systolic and diastolic heart failure, history of complete heart block status post pacer placement, LBBB, PVD status post RLE angioplasty and stent placement March 11, 2022, CKD stage III, dyslipidemia, morbid obesity and recurrent falls presented 03/20 with severe ankle pain after a mechanical fall. She is being managed for the following: #. NONDISPLACED RIGHT FIBULAR FRACTURE, STATUS POST MECHANICAL FALL, likely on the background of age-related osteoporosis #. Recurrent falls Admitting C-spine CT/head CT/right knee x-ray with no acute findings. Osteopenia noted with C-spine. Admitting right ankle x-ray with osteopenia and subtle nondisplaced fracture of the distal fibula. 03/23 left knee x-ray: Unchanged alignment of the proximal fibular fracture, however mild distraction of the proximal tibial fracture fragments that has progressed from 10/04/2021. Follow-up is recommended. No acute fracture. Orthopedic evaluated, non surgical management, nonweightbearing RLE. Framed waffle boots, no pressure on the right heel. May use a high walking boot rather than the low walking boot provided to provide adequate stabilization during transfers. Follow-up with Ortho in 10 to 14 days. Pain management with tramadol as needed, Tylenol 1 g as needed, avoid opiates. Will DC morphine upon discharge. PT/OT evaluation. Pain better controlled today. Pt takes Gabapentin 300 mg in AM, 300 mg in afternoon and 200 mg before bedtime, will gradually increase gabapentin towards home dose. Vitamin D level low normal, can use vitamin D supplement. #. BILATERAL KNEE PAIN, STATUS POST MECHANICAL FALL Happened earlier morning 03/23 Bilateral knee x-rays: 1. Healing subacute fractures of the left proximal tibia and fibula. There is unchanged alignment of the proximal fibular fracture, however mild distraction of the proximal tibial fracture fragments has progressed from 10/04/2021. Follow- up is needed. 2. No acute fracture or dislocation of the right knee. 3. 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 Ortho reevaluated, continue with knee immobilizer, can be toe-touch weightbearing on LLE. Follow-up with Dr. Guzman in 2 weeks for new x-rays for reevaluation. #. Likely MILD TOXIC ENCEPHALOPATHY SECONDARY TO MORPHINE Avoid narcotics. Admitting CT head unrevealing. As needed tramadol Improved. #. Nausea, vomiting: Had multiple emesis 03/24 and concern for hematemesis, lipase was elevated, 03/25 CTAP with no acute findings. GI evaluated, avoid NSAIDs, once daily PPI. We will continue with bowel regimen. Patient with no belly pain and no tenderness on PA exam. Patient tolerating diet well. Continue to monitor hemoglobin. #. UTI status post Rocephin course. #. Other chronic medical conditions: CHF systolic and diastolic, CHB status post pacer, CKD stage III, peripheral arterial disease, ISAIAS on 3 L nasal cannula oxygen while sleeping. Continue with/resume home meds as and when appropriate. Continue with sliding scale, BLE with good pedal pulses. Patient is status post RLE angioplasty and stent placement on March 11, 2022. c/w gabapentin #. DVT prophylaxis: Heparin subcu #. [facility]position: [facility] facility. Stable for DC to SNF 03/31/2022 Total Time Total Time Spent Total Time Spent (In Minutes): 20 Total Time Includes: Examination of the Patient, Discharge Planning and Medication Reconciliation Discharge Plan Discharge Items Patient Disposition: Transfer Inpatient Rehab Fac Reason For Visit: R FIBULAR FRACTURE Discharge Diagnosis: R fibular fracture Activity: As commented below Activity Comment: as per rehab - NWB bilateral LEs Weightbearing: Left non-weightbearing and Right non-weightbearing Non-emergency contact: Primary Care Provider and Surgeon Call non-emergency contact if: you have any medication questions, your symptoms worsen and your pain is worsening Follow-up/Referrals: Benson Olivera DO [Surgeon] - Sarahy Banks MD [Physician] - Rk Jones MD [Primary Care Provider] - Diet: Carb Consistent or DM2 and Heart Healthy Addtl Attending Provider Instructions: You were admitted for mild displacement of previous fracture prosthesis and evaluated by orthopedic surgery who recommend no surgical intervention at this time. You were seen for rehab to help navigate your leg pain and fracture while it heals. You are to follow up with orthopedic surgery in about 1-2 weeks. Pending Studies at Discharge: No Stand-Alone Forms: My [facility] Skilled Items Patient informed of condition?: Yes DNR: No Discharge Level of Care: Acute rehab Communicable Disease: No Discharge Prognosis: Stable Lines: None Urinary Catheter: No Medications and DC Order Prescriptions: New losartan 50 mg Tablet 50 mg PO QAM Qty: 30 0RF polyethylene glycol 3350 [Miralax] 17 gram Powder In Packet 17 g PO DAILY PRN (Reason: constipation) Qty: 30 0RF tramadol 50 mg Tablet 50 mg PO Q6H PRN (Reason: severe pain (scale score 7-10)) Qty: 25 0RF acetaminophen [Tylenol Extra Strength] 500 mg Tablet 1,000 mg PO Q8 PRN (Reason: moderate pain) Qty: 30 0RF sennosides-docusate sodium [Senokot-S] 8.6-50 mg Tablet 1 tab PO QAM Qty: 30 0RF cholecalciferol (vitamin D3) 25 mcg (1,000 unit) Capsule 1,000 unit PO QAM Qty: 30 0RF Continued carvedilol 12.5 mg tablet 12.5 mg PO BID cyanocobalamin (vitamin B-12) 100 mcg Tablet 100 mcg PO DAILY Label Comments: unknown strength (10/01/19) clopidogrel 75 mg tablet 75 mg PO DAILY aspirin 81 mg Tablet,Delayed Release (Dr/Ec) 81 mg PO DAILY montelukast 10 mg tablet 10 mg PO DAILY Multiple Vitamin-Minerals Tablet 1 tab PO DAILY loratadine 10 mg Tablet 10 mg PO DAILY budesonide 32 mcg/actuation [place],Non-Aerosol 2 spray INTRANASAL DAILY insulin aspart U-100 [Novolog Flexpen U-100 Insulin] 100 unit/mL (3 mL) insulin pen 10 unit SUBCUT TIDM Rx Instructions: With meals rosuvastatin 40 mg Tablet 40 mg PO DAILY diclofenac sodium 1 % Gel 4 g TOPICAL QID Trulicity 3 mg/0.5 mL pen injector 3 mg SUBCUT WK gabapentin 100 mg capsule 100 mg PO BID Qty: 60 0RF magnesium 100 mg Tablet 100 mg PO DAILY potassium gluconate 550 mg (90 mg) Tablet 550 mg PO QAM insulin glargine [Lantus Solostar U-100 Insulin] 100 unit/mL (3 mL) insulin pen 20 unit SUBCUT [facility] acetaminophen 325 mg tablet 650 mg PO Q6 PRN (Reason: Pain) albuterol sulfate 2.5 mg /3 mL (0.083 %) solution for nebulization 2.5 mg inhalation Q4 PRN (Reason: Wheezing) furosemide 20 mg tablet 40 mg PO QAM Rx Instructions: may take one additional pill for weight gain or swelling Discontinued morphine 15 mg tablet extended release 15 mg PO [facility] losartan 100 mg tablet 50 mg PO QAM Rx Instructions: 1/2 tablet dose Discharge Orders: Discharge Order (Routine); Ordered 03/31/22 Ordered By: Stephen Ireland Admission Data Admit Date/Time: 03/20/22 16:23 Attending Provider: Stephen Ireland Admit Provider: Randy Shaver Primary Care Provider: Rk Jones Other Providers: [facility] ; [place],[facility] ; [facility] ; Lisset Olivier ; Benson Olivera ; Steve Morrow ; Annalee Gipson ; Nataliia Jacobson ; Crystal Harrison ; Raghavendra Palacios ; José oT ; Sarahy Banks ; Russell Jay ; Catrachita Pena ; Violeta Nair ; Sari Pandey ; Lillie Helm ; Wesley Paul Other Interventions: Discharge Summary Assessment (RN) Last Done: 03/31/22 11:56
== END 2022-03-31 13:16 | DRG 542 ==
LOC: ED 10:45 → SUATTDRO 16:23 → 2W 16:23 → 3N 03-28 19:25
DX: K92.0 Hematemesis; M97 Periprosthetic fracture around internal prosthetic joint; E78.5 Hyperlipidemia, unspecified; N18.30 Chronic kidney disease, stage 3 unspecified; E11.51 Type 2 diabetes mellitus with diabetic peripheral angiopathy without gangrene; Z95.828 Presence of other vascular implants and grafts; E83.42 Hypomagnesemia; L97.519 Non-pressure chronic ulcer of other part of right foot with unspecified severity; Z68.41 Body mass index [BMI] 40.0-44.9, adult; E66.01 Morbid (severe) obesity due to excess calories; L97.908 Non-pressure chronic ulcer of unspecified part of unspecified lower leg with other specified severity; S82.492S Other fracture of shaft of left fibula, sequela; I44.2 Atrioventricular block, complete; Y92.239 Unspecified place in hospital as the place of occurrence of the external cause; Z88.6 Allergy status to analgesic agent; Z88.5 Allergy status to narcotic agent; N39.0 Urinary tract infection, site not specified; G92.8 Other toxic encephalopathy; S82.302S Unspecified fracture of lower end of left tibia, sequela; E11.22 Type 2 diabetes mellitus with diabetic chronic kidney disease; M80.061A Age-related osteoporosis with current pathological fracture, right lower leg, initial encounter for fracture; K59.00 Constipation, unspecified; Z79.82 Long term (current) use of aspirin; Z99.81 Dependence on supplemental oxygen; E11.42 Type 2 diabetes mellitus with diabetic polyneuropathy; W18.09XA Striking against other object with subsequent fall, initial encounter; I42.8 Other cardiomyopathies; E11.621 Type 2 diabetes mellitus with foot ulcer; Y92.019 Unspecified place in single-family (private) house as the place of occurrence of the external cause; Z88.8 Allergy status to other drugs, medicaments and biological substances; I13.0 Hypertensive heart and chronic kidney disease with heart failure and stage 1 through stage 4 chronic kidney disease, or unspecified chronic kidney disease; Z95.0 Presence of cardiac pacemaker; G47.33 Obstructive sleep apnea (adult) (pediatric); I50.42 Chronic combined systolic (congestive) and diastolic (congestive) heart failure

== ENCOUNTER 2022-12-12 13:12 | Inpatient (IN) ==
[2022-12-12] MEDS ORDERED: ONDANSETRON INJ 2 MG/ML 2 ML VIAL IV STA (14:41)
[2022-12-12] MEDS ORDERED: MoRPHine SULFATE 10 MG/ML CARP/VIAL IV STA (14:41)
--- NOTE | 2022-12-12 14:46 | Emergency Department Note ---
Impression & Plan Arterial occlusion, Acute leg pain ED Provider Note NAME: MAGGY TELLEZ AGE: 77 SEX: F : 1945 ARRIVES VIA: Walk-In INFORMANT: Patient, ED PROVIDER(S): Yeyo Reaves DO CHIEF COMPLAINT: leg pain HPI: Patient is a 77-year-old female with a past medical history of CKD, ELOY, diabetes, hypertension, CHF who presents to the ER with right lower extremity pain. She notes she follows with vascular surgery. She has had several procedures done before in the past but nothing over the past year. Wound on her right foot has been getting worse. She denies any fevers above 100.4. She admits to increasing redness. She has been taking Ultram with no improvement as she notes the pain has gotten significantly worse over the past 48 hours. She is unable to walk on it. She does have some mild shortness of breath and combination with it. History is obtained mainly from the as the patient was complaining of too much pain to talk. PAST MEDICAL HISTORY:See Below PAST SURGICAL HISTORY:See Below FAMILY HISTORY:See Below SOCIAL HISTORY:See Below HOME MEDICATIONS:See Below ALLERGIES:See Below VITALS:See Below PHYSICAL EXAMINATION: GENERAL: Sitting up in bed, alert, tearful, mild distress EYE EXAM: normal conjunctiva. OROPHARYNX: Moist mucous membranes LUNGS: Clear to auscultation. Normal chest wall mechanics HEART: no murmurs, S1 normal and S2 normal ABDOMEN: abdomen soft, non-tender, normo-active bowel sounds, no masses, no rebound or guarding. BACK: Back is symmetrical on inspection and there is no deformity, no midline tenderness, no CVA tenderness. SKIN: no rashes and no bruising UPPER EXTREMITIES: upper extremities are grossly normal. LOWER EXTREMITIES: Flexion-extension right hip knee and ankle intact. Unable to appreciate DP and PT. Wound at the base of the first DIP on the plantar surface which is black and hard. Toes are all red and erythematous with erythematous streaking to the midfoot. Slow cap refill. NEURO EXAM: Normal sensorium, cranial nerves II-XII grossly intact, normal speech, no gross weakness of arms, no gross weakness of legs. No drift. Finger to nose intact. Gross sensation intact. MEDICAL DECISION MAKING: Patient is a 77-year-old female who presents ER for severe right leg pain. She is following with vascular surgery at [facility] and is scheduled for surgery coming up due to arterial occlusions. IV was established blood work was obtained. Symptoms get significant worse over the past 48 hours. External records were reviewed. Labs show no significant leukocytosis or anemia. BMP with a creatinine of 2.18 which is up from baseline of 1.2. LFTs bilirubin was unremarkable. Troponin was negative. Lipase normal. COVID-negative. Ultrasound arterial shows multiple occlusions. Venous Doppler was negative. This was discussed with vascular [place] [facility] and I reviewed the images with them. They believe that this is acute on chronic. They recommended heparin drip and bolus and they accepted the patient in transfer but this will likely be a 24 to 48 hours due to bed status. They recommended admission here and they will call us with an accepting provider once they have a bed. Patient was given morphine while in the ER. Triage Nursing notes reviewed. Limited review of prior medical records performed Vital Signs: reviewed and remarkable for no significant abnormalities Differential diagnosis: DVT, musculoskeletal, infection, joint effusion, trauma, lymphedema, idiopathic, CHF, as well as other pathologies. ER treatment provided: See below Diagnostics interpreted by me include EKG and cardiac monitoring as listed below: -Cardiac Monitoring: An order was placed for continuous cardiac monitoring. The monitor shows a rate of 70 with sinus rhythm. -ECG: none -Laboratory studies:Interpreted by me as stated above in MDM and shown below. Imaging studies: Xrays: As interpreted by me: Portable AP upright 1 view of the chest shows no focal infiltrate CTs show: [none] Consultation(s): Spoke with [facility] vascular surgeon Dr. Saez who accepted the patient but will likely be 24 to 48 hours until transfer Procedures:none Critical Care: I have personally spent 32 minutes of critical care time in the direct management of this patient. This includes bedside care, interpretation of diagnostic studies, and testing, discussion with consultants, patient, and family members, and other required patient management activities. This 32 minutes is in excess of all separately billable procedures. Past Med/Surg History Medical History (Updated 12/12/22 @ 20:12 by Yeyo Reaves DO) Asthma CKD (chronic kidney disease), stage III Combined congestive systolic and diastolic heart failure Complete heart block (06/14/14) Diabetes mellitus, type II Diabetes mellitus, type II, insulin dependent Dyslipidemia Excessive daytime sleepiness Granulomatous interstitial lung disease HTN (hypertension) Morbid obesity due to excess calories Nausea & vomiting Nonischemic cardiomyopathy Pacemaker Physical deconditioning PVD (peripheral vascular disease) Sleep apnea Surgical History H/O tubal ligation History of cardiac cath 2014 - normal coronary arteries; [place] Jorgensen [place] [facility] History of carpal tunnel release History of cataract removal with insertion of prosthetic lens History of revascularization procedure of lower extremity fem/pop artery revascularization RLE; 09/2017; Dr Gill at [facility] History of total knee arthroplasty 2005; bilateral Family History Mother Leukemia Son Asthma Brother Stroke Social History Smoking Status: Never smoker Second Hand Exposure: No; Hx Alcohol Use: No Hx Substance Use: No Preferred Language: Hungarian Communication Ability: Effective Electronics Processor Required: No Beliefs That Will Affect Care: None marital status: Current Living Situation: Spouse Feels Safe at Home: Yes Assistive Devices: Cane, Oxygen - at Night, Walker and Wheelchair Allergies Allergies Allergy/AdvReac Type Severity Reaction Status Date / Time fluticasone Allergy Severe WATER ON Verified 12/12/22 15:17 LUNGS, SHORT OF BREATH mold Allergy Severe SEE COMMENT Verified 12/12/22 15:17 salmeterol Allergy Severe WATER ON Verified 12/12/22 15:17 LUNGS, SHORT OF BREATH benzocaine Allergy Unknown Unknown Verified 12/12/22 15:17 hydrocodone [From Vicodin] AdvReac Intermediate hallucinati Verified 12/12/22 15:17 ons oxycodone AdvReac Intermediate Hallucinati Verified 12/12/22 15:17 ng prednisone AdvReac Intermediate HYPERGLYCEM Verified 12/12/22 15:17 IA propoxyphene AdvReac Intermediate DARVOCET--INSOMNIA, Verified 12/12/22 15:17 EXCESSIVE DRY MOUTH VINYL COVERING Allergy Intermediate Rash Uncoded 12/12/22 15:17 Home Meds Home Medications Medication Instructions Recorded Confirmed aspirin 81 mg tablet,delayed 81 mg PO DAILY 10/01/19 12/12/22 release clopidogrel 75 mg tablet 75 mg PO DAILY 10/01/19 12/12/22 cyanocobalamin (vitamin B-12) 100 100 mcg PO DAILY 10/01/19 12/12/22 mcg tablet loratadine 10 mg tablet 10 mg PO DAILY 10/01/19 12/12/22 montelukast 10 mg tablet 10 mg PO DAILY 10/01/19 12/12/22 budesonide 32 mcg/actuation nasal 2 spray intranasal DAILY 09/22/21 12/12/22 spray diclofenac sodium 1 % topical gel 4 g topical QID PRN Pain 09/22/21 12/12/22 dulaglutide 3 mg/0.5 mL 3 mg subcut WK 09/22/21 12/12/22 subcutaneous pen injector (Trulicity) insulin aspart U-100 100 unit/mL See Rx Instructions .Route .COMPLEX 09/22/21 12/12/22 (3 mL) subcutaneous pen (Novolog FlexPen U-100 Insulin aspart) rosuvastatin 40 mg tablet 40 mg PO DAILY 09/22/21 12/12/22 albuterol sulfate 2.5 mg/3 mL 2.5 mg inhalation Q4 PRN Wheezing 03/20/22 12/12/22 (0.083 %) solution for nebulization insulin glargine 100 unit/mL (3 25 unit subcut AMHS 03/20/22 12/12/22 mL) subcutaneous pen (Lantus Solostar U-100 Insulin) calcium carbonate 200 mg calcium 200 mg PO QAM 12/12/22 12/12/22 (500 mg) chewable tablet carvedilol 6.25 mg tablet 6.25 mg PO BID 12/12/22 12/12/22 doxycycline hyclate 100 mg capsule 100 mg PO BID 12/12/22 12/12/22 furosemide 40 mg tablet (Lasix) 40 mg PO DAILY 12/12/22 12/12/22 gabapentin 100 mg capsule 300 mg PO QDL 12/12/22 12/12/22 losartan 25 mg tablet 25 mg PO DAILY 12/12/22 12/12/22 magnesium oxide 400 mg PO QAM 12/12/22 12/12/22 multivitamin 1 tab PO DAILY 12/12/22 12/12/22 Previous Rx's Medication Instructions Recorded tramadol 50 mg tablet 50 mg PO Q6H PRN severe pain 03/31/22 (scale score 7-10) #25 tabs Results & Data (ED) Vital Signs Vital Signs - 24 hr 12/12/22 13:35 12/12/22 15:34 12/12/22 16:32 Temperature 36.1 C L Temperature Source Temporal Artery Scan Pulse Rate 70 71 Respiratory Rate 24 Respiratory Effort / Characteristics Non-Labored Spontaneous Respiratory Depth Normal Respiratory Pattern Regular Blood Pressure 114/60 Blood Pressure Mean 78 Pulse Oximetry 91 95 Oxygen Delivery Method Room Air Room Air Sepsis Recent Fever Within 48 Hours No Sepsis New/Unexplained Change in Mental Status N/A Sepsis Action Taken by Nursing No Action Required Laboratory Data 12/12/22 14:20 12/12/22 14:20 Lab Results 12/12/22 12/12/22 12/12/22 Range/Units 14:20 14:20 14:58 WBC 9.90 (4.8-10.8) K/ul RBC 4.26 (4.20-5.40) M/uL Hgb 13.0 (12.0-16.0) g/dl Hct 39.7 (37.0-47.0) % MCV 93.2 (80.0-100.0) fL MCH 30.5 (25.0-34.0) pg MCHC 32.7 (32.0-36.0) g/dL RDW Std Deviation 44.0 (36.4-46.3) fL RDW Coeff of Javier 13.0 (11.5-14.5) % Plt Count 222 (130-400) K/uL MPV 9.7 (9.4-12.4) fL Immature Gran % (Auto) 0.2 % Neut % (Auto) 71.0 % Lymph % (Auto) 16.3 % [place] % (Auto) 9.2 % Eos % (Auto) 2.6 % Baso % (Auto) 0.7 % Neut # (Auto) 7.03 H (1.40-6.50) K/uL Lymph # (Auto) 1.61 (1.2-3.4) K/uL [place] # (Auto) 0.91 H (0.11-0.59) K/uL Eos # (Auto) 0.26 (0-0.50) K/uL Baso # (Auto) 0.07 (0-0.2) K/uL Immature Gran # (Auto) 0.02 (0.01-0.20) K/uL Sodium 136 (136-145) mmol/L Potassium 3.9 (3.5-5.1) mmol/L Chloride 98 (98-107) mmol/L Carbon Dioxide 33 H (21-32) mmol/L Anion Gap 5 (3-11) BUN 43 H (6-23) mg/dl Creatinine 2.18 H (0.6-1.2) mg/dl Est Cr Clr Drug Dosing Not Reportable Est GFR ( Amer) 24.5 ml/min Est GFR (Non-Af Amer) 21.2 ml/min BUN/Creatinine Ratio 19.7 (10-20) Glucose 271 H (70-99(Fasting)) mg/dl Calcium 9.3 (8.6-10.3) mg/dl Total Bilirubin 0.4 (0.2-1.0) mg/dl AST 16 (13-39) U/L ALT 11 (7-52) U/L Alkaline Phosphatase 88 (34-104) U/L Troponin I High Sens 8.9 (0-14) pg/ml Total Protein 7.0 (6.0-8.3) gm/dl Albumin 3.1 L (3.4-5.0) gm/dl Globulin 3.9 (2.5-4.0) gm/dl Albumin/Globulin Ratio 0.8 L (0.9-2) Lipase 23 (11-82) U/L SARS-CoV-2, RNA, NAAT NEGATIVE (NEGATIVE) Administered Medications Discontinued Medications Sodium Chloride (Nss) 500 mls @ 999 mls/hr IV .Q31M ONE Stop: 12/12/22 19:18 Last Admin: 12/12/22 18:57 Dose: 999 mls/hr Documented By: GILBERTO Morphine Sulfate (Morphine Sulfate 10 Mg/Ml Carp/Vial) 6 mg IV NOW STA Stop: 12/12/22 14:42 Last Admin: 12/12/22 15:07 Dose: 6 mg Documented By: MICHAELLE Ondansetron HCl (Ondansetron Inj 2 Mg/Ml 2 Ml Vial) 4 mg IV NOW STA Stop: 12/12/22 14:42 Last Admin: 12/12/22 15:07 Dose: 4 mg Documented By: MICHAELLE Imaging Data Radiologist's Impression: Chest X-Ray 12/12/22 14:41 SINGLE VIEW CHEST CLINICAL HISTORY: Atypical chest pain. FINDINGS: An AP, portable, upright chest radiograph is compared to study dated 03/20/2022. Correlation is made with chest CT dated 11/01/2019. A 2-lead cardiac pacemaker is unchanged in position. The heart is enlarged noting atherosclerotic calcification of the thoracic aorta. There is pulmonary vascular congestion. Scarring/atelectasis is noted at the lung bases. No airspace consolidation or large pleural effusion is identified. No pneumothorax is seen. The skeletal structures are osteopenic. The bony thorax is grossly intact. IMPRESSION: 1. Cardiomegaly and cardiac pacemaker with evidence of congestive failure. 2. No airspace consolidation or large pleural effusion is identified. ACT 112: Negative or not required by law. Electronically signed by: Celestino Guerrero M.D. 12/12/2022 4:26 PM Duplex Scan Lower Extremity Artery 12/12/22 14:41 ULTRASOUND RIGHT LOWER EXTREMITY ARTERIAL CLINICAL HISTORY: Right leg pain. COMPARISON STUDY: Bilateral lower extremity arterial ultrasound dated 03/02/2022. TECHNIQUE: Real-time guerrero scale and color Doppler sonography of the arteries of the right lower extremity is performed from the inguinal crease to the foot. FINDINGS: There is advanced atherosclerotic calcification seen throughout the left lower extremity arteries. There are triphasic arterial waveforms in the common femoral artery with velocities measuring up to 79 cm/s. The profunda femoris artery was not visualized and may be occluded. There are biphasic arter ial waveforms throughout the superficial femoral artery with velocities measuring up to 65 cm/s. No flow is shown within the popliteal artery and this is likely thrombosed. No flow is shown within the anterior tibial, posterior tibial, and peroneal arteries. This could be related to vessel occlusion versus small caliber and dense atherosclerotic calcification. Flow was shown in the dorsalis pedis. There are blunted arterial upstrokes with the dorsalis pedis and velocities measure up to 22 cm/s. IMPRESSION: 1. Difficult examination due to advanced atherosclerotic calcification throughout the right lower extremity vessels. 2. No flow is shown within the profunda femoris artery. This may be occluded. 3. No flow shown the popliteal artery. This is likely occluded. 4. No flow is shown within the anterior tibial, posterior tibial, and peroneal arteries. This could be due to dense atherosclerotic plaque and small vessel caliber versus vessel occlusions. Electronically signed by: Celestino Guerrero M.D. 12/12/2022 6:42 PM Venous Doppler Study 12/12/22 14:42 ULTRASOUND RIGHT LOWER EXTREMITY VENOUS CLINICAL HISTORY: Right leg swelling. COMPARISON STUDY: Right lower extremity venous ultrasound dated 03/02/2022. TECHNIQUE: Real-time, grayscale, and color Doppler sonography of the deep veins of the right lower extremity was performed from the inguinal crease to the calf. Compression and augmentation were utilized. FINDINGS: There is no sonographic evidence of deep venous thrombosis identified in the right lower extremity. The common femoral, superficial femoral, and popliteal veins are patent and normally compressible. The greater saphenous vein and the profunda femoris vein at the junction with the common femoral vein are clear. The visualized calf veins are patent. Soft tissue edema is noted in the right leg. IMPRESSION: There is no sonographic evidence of deep venous thrombosis identified in the right lower extremity. ACT 112: Negative or not required by law. Electronically signed by: Celestino Guerrero M.D. 12/12/2022 4:30 PM Discharge Plan Visit Data Chief Complaint: Illness Stated Complaint: LEG PAIN, INFECTION, DIFFICULTY BREATHING ED Provider: Yeyo Reaves Discharge Problem: Arterial occlusion, Acute leg pain Forms Stand Alone Forms: My [facility] [employer] Prescriptions Prescriptions: No Action cyanocobalamin (vitamin B-12) 100 mcg Tablet 100 mcg PO DAILY Patient Comments: unknown strength (10/01/19) clopidogrel 75 mg tablet 75 mg PO DAILY aspirin 81 mg Tablet,Delayed Release (Dr/Ec) 81 mg PO DAILY montelukast 10 mg tablet 10 mg PO DAILY loratadine 10 mg Tablet 10 mg PO DAILY budesonide 32 mcg/actuation Bailey,Non-Aerosol 2 spray INTRANASAL DAILY insulin aspart U-100 [Novolog FlexPen U-100 Insulin] 100 unit/mL (3 mL) insulin pen See Rx Instructions .ROUTE .COMPLEX Rx Instructions: TAKES 12 UNITS WITH BREAKFAST & LUNCH, THEN 10 UNITS WITH DINNER. rosuvastatin 40 mg Tablet 40 mg PO DAILY diclofenac sodium 1 % Gel 4 g TOPICAL QID PRN (Reason: Pain) Trulicity 3 mg/0.5 mL pen injector 3 mg SUBCUT WK multivitamin Tablet 1 tab PO DAILY furosemide [Lasix] 40 mg Tablet 40 mg PO DAILY Rx Instructions: PER [facility], MAY TAKE ADDITIONAL DOSE IF NEEDED. carvedilol 6.25 mg tablet 6.25 mg PO BID doxycycline hyclate 100 mg capsule 100 mg PO BID Rx Instructions: STARTED 12/03/22 FOR 14 DAYS calcium carbonate 200 mg calcium (500 mg) Tablet,Chewable 200 mg PO QAM losartan 25 mg tablet 25 mg PO DAILY magnesium oxide 200 mg magnesium Tablet,Chewable 400 mg PO QAM gabapentin 100 mg capsule 300 mg PO QDL Rx Instructions: PER [facility] REPORTED 03/04/21. ORDERED 200 MG TID PER [facility]. insulin glargine [Lantus Solostar U-100 Insulin] 100 unit/mL (3 mL) insulin pen 25 unit SUBCUT AMHS albuterol sulfate 2.5 mg /3 mL (0.083 %) solution for nebulization 2.5 mg inhalation Q4 PRN (Reason: Wheezing) tramadol 50 mg Tablet 50 mg PO Q6H PRN (Reason: severe pain (scale score 7-10)) Qty: 25 0RF Referrals Referrals: Rk Jones MD [Primary Care Provider] -
[2022-12-12 15:00] LABS: Basophils # (auto) 0.07 K/uL (0-0.2); Basophils % (auto) 0.7 %; Eosinophils # (auto) 0.26 K/uL (0-0.50); Eosinophils % (auto) 2.6 %; Hematocrit (blood only) 39.7 % (37.0-47.0); Immature Granulocytes # (auto) 0.02 K/uL (0.01-0.20); Immature Granulocytes % (auto) 0.2 %; Lymphocytes # (auto) 1.61 K/uL (1.2-3.4); Lymphocytes % (auto) 16.3 %; Mean Corpuscular Hemoglobin 30.5 pg (25.0-34.0); Mean Corpuscular Hgb Conc 32.7 g/dL (32.0-36.0); Mean Corpuscular Volume 93.2 fL (80.0-100.0); Mean Platelet Volume 9.7 fL (9.4-12.4); Monocytes # (auto) 0.91 K/uL (0.11-0.59); Monocytes % (auto) 9.2 %; Neutrophils # (auto) 7.03 K/uL (1.40-6.50); Platelet Count 222 K/uL (130-400); Red Blood Count 4.26 M/uL (4.20-5.40)
[2022-12-12 15:01] LABS: Alanine Aminotransferase 11 U/L (7-52); Albumin Globulin Ratio 0.8 (0.9-2); Albumin Level 3.1 gm/dl (3.4-5.0); Alkaline Phosphatase 88 U/L (34-104); Anion Gap 5 (3-11); Aspartate Aminotransferase 16 U/L (13-39); BUN Creatinine Ratio 19.7 (10-20); Bilirubin,Total 0.4 mg/dl (0.2-1.0); Blood Urea Nitrogen 43 mg/dl (6-23); Calcium 9.3 mg/dl (8.6-10.3); Carbon Dioxide 33 mmol/L (21-32); Chloride 98 mmol/L (98-107); Est GFR (African American) 24.5 ml/min; Est GFR (Non-African American) 21.2 ml/min; Globulin 3.9 gm/dl (2.5-4.0); Glucose 271 mg/dl (70-99(Fasting)); Lipase 23 U/L (11-82); Potassium 3.9 mmol/L (3.5-5.1); Sodium 136 mmol/L (136-145)
[2022-12-12 15:08] LABS: Troponin I High Sensitivity 8.9 pg/ml (0-14)
--- NOTE | 2022-12-12 16:27 | XRay Report ---
SINGLE VIEW CHEST CLINICAL HISTORY: Atypical chest pain. FINDINGS: An AP, portable, upright chest radiograph is compared to study dated 03/20/2022. Correlation is made with chest CT dated 11/01/2019. A 2-lead cardiac pacemaker is unchanged in position. The heart is enlarged noting atherosclerotic calcification of the thoracic aorta. There is pulmonary vascular congestion. Scarring/atelectasis is noted at the lung bases. No airspace consolidation or large pleur al effusion is identified. No pneumothorax is seen. The skeletal structures are osteopenic. The bony thorax is grossly intact. IMPRESSION: 1. Cardiomegaly and cardiac pacemaker with evidence of congestive failure. 2. No airspace consolidation or large pleural effusion is identified. ACT 112: Negative or not required by law. Electronically signed by: Celestino Guerrero M.D. 12/12/2022 4:26 PM
--- NOTE | 2022-12-12 16:31 | Ultrasound Report ---
ULTRASOUND RIGHT LOWER EXTREMITY VENOUS CLINICAL HISTORY: Right leg swelling. COMPARISON STUDY: Right lower extremity venous ultrasound dated 03/02/2022. TECHNIQUE: Real-time, grayscale, and color Doppler sonography of the deep veins of the right lower ex tremity was performed from the inguinal crease to the calf. Compression and augmentation were utilize d. FINDINGS: There is no sonographic evidence of deep venous thrombosis identified in the right lower ex tremity. The common femoral, superficial femoral, and popliteal veins are patent and normally luke sible. The greater saphenous vein and the profunda femoris vein at the junction with the common femor al vein are clear. The visualized calf veins are patent. Soft tissue edema is noted in the right leg. IMPRESSION: There is no sonographic evidence of deep venous thrombosis identified in the right lower extremity. ACT 112: Negative or not required by law. Electronically signed by: Celestino Guerrero M.D. 12/12/2022 4:30 PM
--- NOTE | 2022-12-12 18:43 | Ultrasound Report ---
ULTRASOUND RIGHT LOWER EXTREMITY ARTERIAL CLINICAL HISTORY: Right leg pain. COMPARISON STUDY: Bilateral lower extremity arterial ultrasound dated 03/02/2022. TECHNIQUE: Real-time guerrero scale and color Doppler sonography of the arteries of the right lower extre mity is performed from the inguinal crease to the foot. FINDINGS: There is advanced atherosclerotic calcification seen throughout the left lower extremity ar teries. There are triphasic arterial waveforms in the common femoral artery with velocities measuring up to 79 cm/s. The profunda femoris artery was not visualized and may be occluded. There are biphasi c arterial waveforms throughout the superficial femoral artery with velocities measuring up to 65 cm/ s. No flow is shown within the popliteal artery and this is likely thrombosed. No flow is shown withi n the anterior tibial, posterior tibial, and peroneal arteries. This could be related to vessel occlu cortez versus small caliber and dense atherosclerotic calcification. Flow was shown in the dorsalis ped is. There are blunted arterial upstrokes with the dorsalis pedis and velocities measure up to 22 cm/s . IMPRESSION: 1. Difficult examination due to advanced atherosclerotic calcification throughout the right lower ext remity vessels. 2. No flow is shown within the profunda femoris artery. This may be occluded. 3. No flow shown the popliteal artery. This is likely occluded. 4. No flow is shown within the anterior tibial, posterior tibial, and peroneal arteries. This could b e due to dense atherosclerotic plaque and small vessel caliber versus vessel occlusions. Electronically signed by: Celestino Guerrero M.D. 12/12/2022 6:42 PM
[2022-12-12] MEDS ORDERED: SODIUM CHLORIDE 0.9% 500 ML IV ONE (18:48)
[2022-12-12] MEDS ORDERED: Heparin IV Adult Wt-Based Standard WITH Bolus Protocol IV STA (18:58)
[2022-12-12] MEDS ORDERED: HEPARIN SOD (PORCINE) 1000 UNIT/ML IV ONE (19:13)
[2022-12-12] MEDS: HEPARIN SODIUM/DEXTROSE 25,000 UNITS/500 ML BAG IV SCH (20:11)
[2022-12-12 20:19] LABS: INR 1.1 (0.9-1.1); Partial Thromboplastin Ratio 0.9; Partial Thromboplastin Time 25.7 Seconds (21.0-31.0); Prothrombin Time 11.4 Seconds (9.0-12.0)
--- NOTE | 2022-12-12 23:15 | History and Physical Report ---
DATE OF ADMISSION: 12/12/2022. CHIEF COMPLAINT: Right lower extremity pain and wounds. HISTORY OF PRESENT ILLNESS: This is a 77-year-old female with past medical history significant for hypertension, chronic left bundle-branch block complete heart block, status post dual chamber pacemaker insertion in 2013 in the setting of lyme positive testing, morbid obesity, asthma, type 2 diabetes, hyperlipidemia, cardiac catheterization in 2014 showed normal coronary arteries and elevated left end-diastolic pressure, combined chronic diastolic and systolic EF, EF of 45% to 49% done on echo in May 2022, chronic hypoxia and hypoventilation syndrome, on nocturnal oxygen 3 liters, severe obstructive sleep apnea, uses oxygen in the nighttime, peripheral artery disease, currently follows with vascular surgery, history of COVID in August 2021, history of left tibiofibular fracture in September 2021, chronic RV pacing, chronic kidney disease stage IV, anemia of chronic kidney disease, history of dry gangrene, generalized osteoarthritis, CAD status post stent, peripheral vascular angioplasty status, persistent insomnia, presents with right lower extremity pain, the patient is having this pain going on for a long time. States the symptoms started in 2015. The patient in last February, she had right lower extremity angioplasty and stent placement in February 2022. She recently saw vascular surgery on 12/03/2022 as there was increasing pain. She was taking tramadol 1 or 2 tablets daily, asked to take every 6 hours as patient and also there is plan for surgery on 12/21/2022, but last 2 days, the pain got worse. She woke up around 4:30 in the a.m. having severe pain, not able to do anything. That is the reason brought her to the hospital. After pain medications, the pain has resolved. Arterial Doppler was done showing stenosis of the profunda femoris artery and popliteal artery. ER spoke to the vascular surgery, Dr. Silverio, at [facility]. She was accepted in transfer, but they do not have beds for possibly 1 or 2 days, advised to start on heparin, thought this is all chronic issues. The pain is controlled and currently resting comfortably and hemodynamically stable. Denies any chest pain, no shortness of breath. No cough. Has some runny nose. No sore throat, no fevers, no headache, no blurred visions, no nausea. Appetite is okay. No abdominal pain. No buring micturition. Normal bowel movements. ALLERGIES: FLUTICASONE, MOLD, SALMETEROL, BENZOCAINE, VICODIN, OXYCODONE, PREDNISONE, PROPOXYPHENE, VINYL COVERING. PAST MEDICAL HISTORY: As mentioned above. PAST SURGICAL HISTORY: Bilateral knee arthroplasty, left heart catheterization, right femoropopliteal artery revascularization with stent and angioplasty in February 2022, pacemaker insertion in 2013, knee arthroscopy, ligation of the oviducts, tonsillectomy and adenoidectomy, tibial-peroneal artery revascularization plus angioplasty in February 2022. MEDICATIONS: The patient is on albuterol 2.5 mg inhalation q. 4 hours p.r.n., aspirin 81 mg p.o. daily, budesonide 2 sprays intranasal daily, calcium carbonate 200 mg p.o. daily, Coreg 6.25 mg p.o. b.i.d., Plavix 75 mg p.o. daily, vitamin B12 100 mcg p.o. daily, diclofenac sodium 4 g topical q.i.d. p.r.n., doxycycline 100 mg p.o. b.i.d., Lasix 40 mg p.o. daily, gabapentin 300 mg p.o. daily, NovoLog as directed, Lantus 25 units b.i.d., loratadine 10 mg p.o. daily, losartan 25 mg p.o. daily, magnesium oxide 400 mg p.o. daily, montelukast 10 mg p.o. daily, multivitamin 1 tablet p.o. daily, Coreg 40 mg p.o. daily, tramadol 50 mg p.o. q. 6 hours p.r.n., Trulicity 3 mg subcutaneous weekly. FAMILY HISTORY: Significant for daughter has allergies; mother has leukemia; brother had emphysema; father had dementia; brother had stroke. SOCIAL HISTORY: , lives with her . No smoking, no alcohol, no drug use. REVIEW OF SYSTEMS: As per HPI. Rest of review of systems is negative. PHYSICAL EXAMINATION: GENERAL: The patient is morbidly obese, not in acute distress. VITAL SIGNS: Temperature 36.1, pulse 71, respiratory rate 24, blood pressure 114/60, oxygen 95% on room air. HEENT: Pupils equal, round and reactive to light. Oral mucosa moist. NECK: No JVD. No neck masses. CARDIOVASCULAR: S1 and S2 heard. Regular rate and rhythm. No murmur, no gallop. RESPIRATORY SYSTEM: Normal AP diameter. No accessory muscle use. No wheezing, no crackles. ABDOMEN: Soft, bowel sounds present, nontender, no distention. CENTRAL NERVOUS SYSTEM: Alert and oriented. Speech is clear. No facial droop. Obeys simple commands. Moves extremities. EXTREMITIES: Right lower extremity foot is somewhat erythematous and some dry gangrene wound seen on the thumb on the plantar aspect and tender to palpation and somewhat cold to touch. LABORATORY DATA: WBC 9, hemoglobin 13, hematocrit 39.7, platelets 222. Sodium 136, potassium 3.9, chloride 98, CO2 of 33, BUN 43, creatinine 2.1, serum glucose 271, calcium 9.3, total bilirubin 0.4, AST 16, ALT 11, alkaline phosphatase 88. Troponin I high sensitivity 8.9, lipase 23. SARS-CoV-2 rapid test negative. IMAGING DATA: Venous Doppler, no DVT. Arterial Doppler of the right lower extremity, difficult examination due to advanced atherosclerotic calcifications over the right lower extremity reveals. No flow is shown within the profunda femoris artery, this may be occluded. No flow is shown in the popliteal artery, this is likely occluded. No flow is shown within the anterior tibial, and peroneal arteries, this could also be due to dense atherosclerotic block and small vessel caliber versus occlusions. EKG: Atrial sensed ventricular paced rhythm at a rate of 66. ASSESSMENT AND PLAN: This is a 77-year-old female with ongoing peripheral vascular disease of the right lower extremity, presents with severe pain of the right lower extremity. 1. Right lower extremity pain with wounds in the first big toe: Ongoing issue. She had angioplasty and stent placement in February of 2022. Recently saw Vascular Surgery as symptoms were getting worse, they plan for surgery on 12/21/2022, and started on doxycycline last week and also advised to increase tramadol, but the pain was getting worse. ER spoke with [facility], they are accepting transfer. Advised to start on heparin and may take for 1 or 2 days for bed availability for transfer and advised for vascular surgery to see here. Will consult vascular surgery while she is in the hospital. We will also put her on IV Dilaudid p.r.n. and IV gentle fluids. N.p.o. after midnight and empiric Zosyn. Monitor in the hospital. 2. Acute kidney injury on chronic kidney disease stage III to IV: Presents with creatinine of 2.1. Baseline creatinine around 1.6 to 1.7. Holding Lasix and losartan. Getting gentle fluids. Monitor the labs. 3. Morbid obesity, obstructive sleep apnea: Uses oxygen in the nighttime 4. Diabetes: Continue the Lantus. Insulin sliding scale. Follow the blood sugars. 5. Hypertension: Continue Coreg. Holding the losartan and Lasix. Monitor the blood pressure. 6. Hyperlipidemia: On statin. 7. History of chronic systolic and diastolic congestive heart failure, ejection fraction of 45% to 49% on echo done in May 2022. Holding the diuretic, Lasix. Getting gentle fluids, monitor for any volume overload. 8. History of coronary artery disease, status post stent: On Coreg, aspirin, Plavix, and statin. 9. History of complete heart block, status post pacemaker. 10. Peripheral vascular disease: On aspirin, Plavix, and statin. 11. Anemia of chronic kidney disease. Hemoglobin of 13. We will follow the labs. 12. Deep venous thrombosis prophylaxis. Currently on IV heparin. DISPOSITION: Closely monitor in the [facility]. Expect to transfer to [facility] when bed is available. Level 1 full code as per my discussion with the patient. Job ID: [id number] [facility]
[2022-12-12] MEDS ORDERED: SODIUM CHLORIDE 0.9% 1000ML 1,000 ML IV SCH (23:16)
[2022-12-12] MEDS ORDERED: ONDANSETRON INJ 2 MG/ML 2 ML VIAL IV PRN (23:16)
[2022-12-12] MEDS ORDERED: GLUCOSE 10 TAB/TUBE PO PRN (23:16)
[2022-12-12] MEDS ORDERED: HYDROmorphone INJ 0.5 MG/0.5 ML SYR IV PRN (23:16)
[2022-12-12] MEDS ORDERED: GLUCAGON FOR INJ 1 MG VIAL SQ PRN (23:16)
[2022-12-12] MEDS ORDERED: ACETAMINOPHEN 325 MG TAB PO PRN (23:16)
[2022-12-12] MEDS ORDERED: traMADol HCL 50 MG TABLET PO PRN (23:16)
[2022-12-12] MEDS ORDERED: DICLOFENAC SOD 1% GEL 100 GM TUBE EXT PRN (23:16)
[2022-12-12] MEDS ORDERED: ALBUTEROL 0.083% NEBU SOLN 3 ML VIAL INH PRN (23:16)
[2022-12-12] MEDS ORDERED: GLUCOSE 40% GEL 15 GM TUBE PO PRN (23:16)
[2022-12-12] MEDS ORDERED: CARBOHYDRATES FOR HYPOGLYCEMIA PO PRN (23:16)
[2022-12-12] MEDS ORDERED: POLYETHYLENE (MIRALAX) 17 GM PACK PO PRN (23:16)
[2022-12-12] MEDS ORDERED: NITROGLYCERIN SL 0.4 MG/TAB TAB SL PRN (23:16)
[2022-12-12] MEDS ORDERED: DEXTROSE 50% 50 ML SYRINGE IV PRN (23:16)
[2022-12-13] MEDS: DOXYCYCLINE HYCLATE 100 MG CAP PO SCH ×3 (00:11→22:07)
[2022-12-13] MEDS: carvediloL 6.25 MG TAB PO SCH ×3 (00:11→22:07)
[2022-12-13] MEDS: INSULIN ASPART PER UNIT CHARGE SC SCH ×5 (00:18→23:31)
[2022-12-13] MEDS: LANTUS PER UNIT CHARGE SC SCH ×3 (00:19→21:42)
[2022-12-13] MEDS ORDERED: PIPERACILLIN/TAZOBACTAM 4.5 GM (over 30 mins) IV ONE (00:45)
[2022-12-13 02:39] LABS: Basophils # (auto) 0.07 K/uL (0-0.2); Basophils % (auto) 0.8 %; Eosinophils % (auto) 3.4 %; Hematocrit (blood only) 36.5 % (37.0-47.0); Hemoglobin 12.2 g/dl (12.0-16.0); Immature Granulocytes # (auto) 0.02 K/uL (0.01-0.20); Immature Granulocytes % (auto) 0.2 %; Mean Corpuscular Hemoglobin 30.8 pg (25.0-34.0); Mean Corpuscular Hgb Conc 33.4 g/dL (32.0-36.0); Mean Corpuscular Volume 92.2 fL (80.0-100.0); Mean Platelet Volume 9.8 fL (9.4-12.4); Monocytes % (auto) 11.2 %; Neutrophils % (auto) 57.4 %; Platelet Count 217 K/uL (130-400); RDW Standard Deviation 43.8 fL (36.4-46.3); Red Blood Count 3.96 M/uL (4.20-5.40); White Blood Count 8.89 K/ul (4.8-10.8)
[2022-12-13 02:54] LABS: Calcium 8.9 mg/dl (8.6-10.3); Creatinine Clr Calc Pharmacy 24.6 ml/min; Est GFR (African American) 22.9 ml/min; Est GFR (Non-African American) 19.7 ml/min; Magnesium 1.7 mg/dl (1.7-2.4); Potassium 4.3 mmol/L (3.5-5.1)
[2022-12-13 03:35] LABS: Partial Thromboplastin Ratio 3.5
[2022-12-13 04:00] LABS: Partial Thromboplastin Time 97.2 Seconds (21.0-31.0)
[2022-12-13] MEDS ORDERED: CALCIUM CARBONATE 500 MG CHEWABLE TAB PO SCH (06:30)
[2022-12-13 08:09] LABS: Estimated Average Glucose 321 mg/dl; Hemoglobin A1C 12.8 % (4.5-5.6)
[2022-12-13] MEDS: PIPERACILLIN/TAZOBACTAM 4.5 GM in DEXTROSE 5% 100 ML IV SCH ×3 (08:25→23:32)
[2022-12-13] MEDS ORDERED: GLUCOSE 10 TAB/TUBE PO PRN (08:41)
[2022-12-13] MEDS ORDERED: GLUCOSE 40% GEL 15 GM TUBE PO PRN (08:41)
[2022-12-13] MEDS ORDERED: GLUCAGON FOR INJ 1 MG VIAL SQ PRN (08:41)
[2022-12-13] MEDS ORDERED: CARBOHYDRATES FOR HYPOGLYCEMIA PO PRN (08:41)
[2022-12-13] MEDS ORDERED: DEXTROSE 50% 50 ML SYRINGE IV PRN (08:41)
[2022-12-13] MEDS ORDERED: LORATADINE 10 MG TAB PO SCH (09:00)
[2022-12-13] MEDS ORDERED: MULTIVITAMIN TAB PO SCH (09:00)
[2022-12-13] MEDS ORDERED: ASPIRIN 81 MG ECTAB PO SCH (09:00)
[2022-12-13] MEDS ORDERED: CYANOCOBALAMIN (B-12) 100 MCG TABLET PO SCH (09:00)
[2022-12-13] MEDS ORDERED: ROSUVASTATIN CALCIUM 20 MG TAB PO SCH (09:00)
[2022-12-13] MEDS ORDERED: MAGNESIUM OXIDE 400 MG TAB PO SCH (09:00)
[2022-12-13] MEDS ORDERED: MONTELUKAST SODIUM 10 MG TABLET PO SCH (09:00)
[2022-12-13] MEDS ORDERED: CLOPIDOGREL BISULFATE 75 MG TAB PO SCH (09:00)
[2022-12-13] MEDS ORDERED: GABAPENTIN 300 MG CAP PO SCH (11:30)
--- NOTE | 2022-12-13 11:34 | Hospitalist Progress Note ---
Date of Service December 13, 2022 Assessment & Plan (1) Acute leg pain: (2) PVD (peripheral vascular disease): Plan: Patient has past medical history of peripheral artery disease; had right lower extremity angioplasty and stent placement in February 2022 Patient had been dealing with right lower extremity pain and dry gangrene for last several month. She was recently seen by vascular surgery on December 03 for increasing pain; was prescribed tramadol. She presented to the ED with severe pain on right lower extremity which woke her up from her sleep. Arterial Doppler results personally reviewed; showed stenosis of profunda femoris artery and popliteal artery. ED physician talked with vascular surgery at [facility] (Dr. Silverio); patient accepted for transfer. Patient to be transferred to [facility] after bed is available. She was recommended to be started on heparin drip while she is hospitalized here. Pain control with IV Dilaudid Will start on diet Discontinue IV fluids (3) Acute kidney injury superimposed on chronic kidney disease: Plan: Presents with a creatinine of 2.1 Labs reviewed today; creatinine of 2.31 Baseline creatinine of 1.6-1.7 Holding off on Lasix and losartan for now. Monitor daily BMP (4) Diabetes mellitus, type II, insulin dependent: Plan: History of uncontrolled diabetes mellitus. A1c of 12.8% Started on Lantus and sliding scale Monitor blood glucose level (5) Morbid obesity: Plan: BMI of 44.2. Counseled on weight loss Plan Chronic conditions; Hypertension: Continue Coreg. Holding the losartan and Lasix. Monitor the blood pressure. Hyperlipidemia: On statin. History of chronic systolic and diastolic congestive heart failure, ejection fraction of 45% to 49% on echo done in May 2022. Holding the diuretic, Lasix. History of coronary artery disease, status post stent: On Coreg, aspirin, Plavix, and statin. History of complete heart block, status post pacemaker. Peripheral vascular disease: On aspirin, Plavix, and statin. Anemia of chronic kidney disease. Hemoglobin of 13. We will follow the labs. Deep venous thrombosis prophylaxis. Currently on IV heparin. Dispotransfer to [facility] after bed is available. Admission and Anticipated Discharge Date Admission Date: December 12, 2022 Subjective Patient seen and examined at bedside. She is lying on the bed comfortably; not in distress. No pain in her leg. Review of Systems Review of Systems: All systems reviewed & are unremarkable except as noted in Subjective Physical Exam Physical Exam: Constitutional: Awake, alert orient x3; morbid obesity. Respiratory: normal respiratory effort, lungs clear to auscultation, no wheeze, rales, rhonchi. Normal insp/exp effort, no accessory muscle use Cardiovascular: RRR, no murmur, no edema Vessels: no JVD or carotid bruit Chest: normal inspection of chest Abdomen: normal bowel sounds, soft, nontender, no hepatosplenomegaly Musculoskeletal: Dry gangrene present on the great toe on the plantar aspect of right foot. Unable to appreciate dorsalis pedis pulse on the right. Skin: no rashes, warm and dry normal turgor Neurologic: PERRL, EOMI, accommodation nl, no face palsy, no dysarthria CN's II- XI intact bilaterally and moves all extremities Psychiatric: A+Ox3, euthymic affect Lymphatic: no cervical or axillary lymphadenopathy : deferred Results & Data Results & Data Vital Signs (Past 12 Hours) Vital Signs Temp Pulse Pulse Resp BP Pulse Ox O2 Del Method 12/13/22 07:20 36.4 C L 69 20 122/70 100 Nasal Cannula 12/13/22 07:15 67 12/13/22 00:30 36.6 C 86 18 124/65 96 Room Air 12/13/22 02:49 36.5 C 78 18 114/73 100 Nasal Cannula O2 Flow Rate 12/13/22 07:20 3 12/13/22 07:15 12/13/22 00:30 12/13/22 02:49 3 Laboratory Results Laboratory Results WBC 8.89 K/ul (4.8-10.8) 12/13/22 02:12 RBC 3.96 M/uL (4.20-5.40) L 12/13/22 02:12 Hgb 12.2 g/dl (12.0-16.0) 12/13/22 02:12 Hct 36.5 % (37.0-47.0) L 12/13/22 02:12 MCV 92.2 fL (80.0-100.0) 12/13/22 02:12 MCH 30.8 pg (25.0-34.0) 12/13/22 02:12 MCHC 33.4 g/dL (32.0-36.0) 12/13/22 02:12 RDW Std Deviation 43.8 fL (36.4-46.3) 12/13/22 02:12 RDW Coeff of Javier 13.0 % (11.5-14.5) 12/13/22 02:12 Plt Count 217 K/uL (130-400) 12/13/22 02:12 MPV 9.8 fL (9.4-12.4) 12/13/22 02:12 Immature Gran % (Auto) 0.2 % 12/13/22 02:12 Neut % (Auto) 57.4 % 12/13/22 02:12 Lymph % (Auto) 27.0 % 12/13/22 02:12 Warren % (Auto) 11.2 % 12/13/22 02:12 Eos % (Auto) 3.4 % 12/13/22 02:12 Baso % (Auto) 0.8 % 12/13/22 02:12 Neut # (Auto) 5.10 K/uL (1.40-6.50) 12/13/22 02:12 Lymph # (Auto) 2.40 K/uL (1.2-3.4) 12/13/22 02:12 Warren # (Auto) 1.00 K/uL (0.11-0.59) H 12/13/22 02:12 Eos # (Auto) 0.30 K/uL (0-0.50) 12/13/22 02:12 Baso # (Auto) 0.07 K/uL (0-0.2) 12/13/22 02:12 Immature Gran # (Auto) 0.02 K/uL (0.01-0.20) 12/13/22 02:12 PT 11.4 Seconds (9.0-12.0) 12/12/22 19:22 INR 1.1 (0.9-1.1) 12/12/22 19:22 APTT 97.2 Seconds (21.0-31.0) H* 12/13/22 02:12 PTT Ratio 3.5 12/13/22 02:12 Sodium 137 mmol/L (136-145) 12/13/22 02:12 Potassium 4.3 mmol/L (3.5-5.1) 12/13/22 02:12 Chloride 101 mmol/L (98-107) 12/13/22 02:12 Carbon Dioxide 34 mmol/L (21-32) H 12/13/22 02:12 Anion Gap 2 (3-11) L 12/13/22 02:12 BUN 44 mg/dl (6-23) H 12/13/22 02:12 Creatinine 2.31 mg/dl (0.6-1.2) H 12/13/22 02:12 Est Cr Clr Drug Dosing 24.6 ml/min 12/13/22 02:12 Est GFR ( Amer) 22.9 ml/min 12/13/22 02:12 Est GFR (Non-Af Amer) 19.7 ml/min 12/13/22 02:12 BUN/Creatinine Ratio 19.0 (10-20) 12/13/22 02:12 Glucose 219 mg/dl (70-99(Fasting)) H 12/13/22 02:12 POC Glucose 153 mg/dl (70-99) H 12/13/22 05:49 Estimat Average Glucose 321 mg/dl 12/13/22 02:12 Hemoglobin A1c 12.8 % (4.5-5.6) H 12/13/22 02:12 Calcium 8.9 mg/dl (8.6-10.3) 12/13/22 02:12 Magnesium 1.7 mg/dl (1.7-2.4) 12/13/22 02:12 Total Bilirubin 0.4 mg/dl (0.2-1.0) 12/12/22 14:20 AST 16 U/L (13-39) 12/12/22 14:20 ALT 11 U/L (7-52) 12/12/22 14:20 Alkaline Phosphatase 88 U/L (34-104) 12/12/22 14:20 Troponin I High Sens 8.9 pg/ml (0-14) 12/12/22 14:20 Total Protein 7.0 gm/dl (6.0-8.3) 12/12/22 14:20 Albumin 3.1 gm/dl (3.4-5.0) L 12/12/22 14:20 Globulin 3.9 gm/dl (2.5-4.0) 12/12/22 14:20 Albumin/Globulin Ratio 0.8 (0.9-2) L 12/12/22 14:20 Lipase 23 U/L (11-82) 12/12/22 14:20 SARS-CoV-2, RNA, NAAT NEGATIVE (NEGATIVE) 12/12/22 14:58 Impressions Chest X-Ray 12/12/22 14:41 SINGLE VIEW CHEST CLINICAL HISTORY: Atypical chest pain. FINDINGS: An AP, portable, upright chest radiograph is compared to study dated 03/20/2022. Correlation is made with chest CT dated 11/01/2019. A 2-lead cardiac pacemaker is unchanged in position. The heart is enlarged noting atherosclerotic calcification of the thoracic aorta. There is pulmonary vascular congestion. Scarring/atelectasis is noted at the lung bases. No airspace consolidation or large pleural effusion is identified. No pneumothorax is seen. The skeletal structures are osteopenic. The bony thorax is grossly intact. IMPRESSION: 1. Cardiomegaly and cardiac pacemaker with evidence of congestive failure. 2. No airspace consolidation or large pleural effusion is identified. ACT 112: Negative or not required by law. Electronically signed by: Celestino Guerrero M.D. 12/12/2022 4:26 PM Duplex Scan Lower Extremity Artery 12/12/22 14:41 ULTRASOUND RIGHT LOWER EXTREMITY ARTERIAL CLINICAL HISTORY: Right leg pain. COMPARISON STUDY: Bilateral lower extremity arterial ultrasound dated 03/02/2022. TECHNIQUE: Real-time guerrero scale and color Doppler sonography of the arteries of the right lower extremity is performed from the inguinal crease to the foot. FINDINGS: There is advanced atherosclerotic calcification seen throughout the left lower extremity arteries. There are triphasic arterial waveforms in the common femoral artery with velocities measuring up to 79 cm/s. The profunda fe ursula artery was not visualized and may be occluded. There are biphasic arterial waveforms throughout the superficial femoral artery with velocities measuring up to 65 cm/s. No flow is shown within the popliteal artery and this is likely thrombosed. No flow is shown within the anterior tibial, posterior tibial, and peroneal arteries. This could be related to vessel occlusion versus small caliber and dense atherosclerotic calcification. Flow was shown in the dorsalis pedis. There are blunted arterial upstrokes with the dorsalis pedis and velocities measure up to 22 cm/s. IMPRESSION: 1. Difficult examination due to advanced atherosclerotic calcification throughout the right lower extremity vessels. 2. No flow is shown within the profunda femoris artery. This may be occluded. 3. No flow shown the popliteal artery. This is likely occluded. 4. No flow is shown within the anterior tibial, posterior tibial, and peroneal arteries. This could be due to dense atherosclerotic plaque and small vessel caliber versus vessel occlusions. Electronically signed by: Celestino Guerrero M.D. 12/12/2022 6:42 PM Venous Doppler Study 12/12/22 14:42 ULTRASOUND RIGHT LOWER EXTREMITY VENOUS CLINICAL HISTORY: Right leg swelling. COMPARISON STUDY: Right lower extremity venous ultrasound dated 03/02/2022. TECHNIQUE: Real-time, grayscale, and color Doppler sonography of the deep veins of the right lower extremity was performed from the inguinal crease to the calf. Compression and augmentation were utilized. FINDINGS: There is no sonographic evidence of deep venous thrombosis identified in the right lower extremity. The common femoral, superficial femoral, and popliteal veins are patent and normally compressible. The greater saphenous vein and the profunda femoris vein at the junction with the common femoral vein are clear. The visualized calf veins are patent. Soft tissue edema is noted in the right leg. IMPRESSION: There is no sonographic evidence of deep venous thrombosis identified in the right lower extremity. ACT 112: Negative or not required by law. Electronically signed by: Celestino Guerrero M.D. 12/12/2022 4:30 PM
[2022-12-13 12:51] LABS: Partial Thromboplastin Time 81.9 Seconds (21.0-31.0)
--- NOTE | 2022-12-13 17:39 | Electrocardiogram Report ---
Test Reason : Blood Pressure : / mmHG Vent. Rate : 066 BPM Atrial Rate : 066 BPM P-R Int : 170 ms QRS Dur : 186 ms QT Int : 482 ms P-R-T Axes : 041 -86 047 degrees QTc Int : 505 ms Atrial-sensed ventricular-paced rhythm Abnormal ECG When compared with ECG of 20-MAR-2022 11:46, Electronic ventricular pacemaker has replaced Sinus rhythm Confirmed by David Brooks ([id number]) on 12/13/2022 5:38:46 PM Referred By: REFERRED SELF Confirmed By:Sathish Brooks
[2022-12-13 21:05] LABS: Partial Thromboplastin Ratio 1.2
[2022-12-13] MEDS ORDERED: HEPARIN SOD (PORCINE) 1000 UNIT/ML IV ONE (21:45)
[2022-12-13] MEDS: HEPARIN SODIUM/DEXTROSE 25,000 UNITS/500 ML BAG IV SCH (22:48)
--- NOTE | 2022-12-14 13:35 | Discharge Summary ---
Date of Service December 13, 2022 Admission HPI Per Admitting Provider This is a 77-year-old female with past medical history significant for hypertension, chronic left bundle-branch block complete heart block, status post dual chamber pacemaker insertion in 2013 in the setting of lyme positive testing, morbid obesity, asthma, type 2 diabetes, hyperlipidemia, cardiac catheterization in 2014 showed normal coronary arteries and elevated left end- diastolic pressure, combined chronic diastolic and systolic EF, EF of 45% to 49% done on echo in May 2022, chronic hypoxia and hypoventilation syndrome, on nocturnal oxygen 3 liters, severe obstructive sleep apnea, uses oxygen in the nighttime, peripheral artery disease, currently follows with vascular surgery, history of COVID in August 2021, history of left tibiofibular fracture in September 2021, chronic RV pacing, chronic kidney disease stage IV, anemia of chronic kidney disease, history of dry gangrene, generalized osteoarthritis, CAD status post stent, peripheral vascular angioplasty status, persistent insomnia, presents with right lower extremity pain, the patient is having this pain going on for a long time. States the symptoms started in 2015. The patient in last February, she had right lower extremity angioplasty and stent placement in February 2022. She recently saw vascular surgery on 12/03/2022 as there was increasing pain. She was taking tramadol 1 or 2 tablets daily, asked to take every 6 hours as patient and also there is plan for surgery on 12/21/2022, but last 2 days, the pain got worse. She woke up around 4:30 in the a.m. having severe pain, not able to do anything. That is the reason brought her to the hospital. After pain medications, the pain has resolved. Arterial Doppler was done showing stenosis of the profunda femoris artery and popliteal artery. ER spoke to the vascular surgery, Dr. Silverio, at [facility]. She was accepted in transfer, but they do not have beds for possibly 1 or 2 days, advised to start on heparin, thought this is all chronic issues. The pain is controlled and currently resting comfortably and hemodynamically stable. Denies any chest pain, no shortness of breath. No cough. Has some runny nose. No sore throat, no fevers, no headache, no blurred visions, no nausea. Appetite is okay. No abdominal pain. No buring micturition. Normal bowel movements. Admission Exam Per Admitting Provider GENERAL: The patient is morbidly obese, not in acute distress. VITAL SIGNS: Temperature 36.1, pulse 71, respiratory rate 24, blood pressure 114/60, oxygen 95% on room air. HEENT: Pupils equal, round and reactive to light. Oral mucosa moist. NECK: No JVD. No neck masses. CARDIOVASCULAR: S1 and S2 heard. Regular rate and rhythm. No murmur, no gallop. RESPIRATORY SYSTEM: Normal AP diameter. No accessory muscle use. No wheezing, no crackles. ABDOMEN: Soft, bowel sounds present, nontender, no distention. CENTRAL NERVOUS SYSTEM: Alert and oriented. Speech is clear. No facial droop. Obeys simple commands. Moves extremities. EXTREMITIES: Right lower extremity foot is somewhat erythematous and some dry gangrene wound seen on the thumb on the plantar aspect and tender to palpation and somewhat cold to touch. Principal Diagnosis (1) Acute leg pain: (2) PVD (peripheral vascular disease): Discharge Exam Constitutional: Awake, alert orient x3; morbid obesity. Respiratory: normal respiratory effort, lungs clear to auscultation, no wheeze, rales, rhonchi. Normal insp/exp effort, no accessory muscle use Cardiovascular: RRR, no murmur, no edema Vessels: no JVD or carotid bruit Chest: normal inspection of chest Abdomen: normal bowel sounds, soft, nontender, no hepatosplenomegaly Musculoskeletal: Dry gangrene present on the great toe on the plantar aspect of right foot. Unable to appreciate dorsalis pedis pulse on the right. Skin: no rashes, warm and dry normal turgor Neurologic: PERRL, EOMI, accommodation nl, no face palsy, no dysarthria CN's II- XI intact bilaterally and moves all extremities Psychiatric: A+Ox3, euthymic affect Lymphatic: no cervical or axillary lymphadenopathy : deferred Discharge Data Allergies Allergy/AdvReac Type Severity Reaction Status Date / Time fluticasone Allergy Severe WATER ON Verified 12/12/22 15:17 LUNGS, SHORT OF BREATH mold Allergy Severe SEE COMMENT Verified 12/12/22 15:17 salmeterol Allergy Severe WATER ON Verified 12/12/22 15:17 LUNGS, SHORT OF BREATH benzocaine Allergy Unknown Unknown Verified 12/12/22 15:17 hydrocodone [From Vicodin] AdvReac Intermediate hallucinati Verified 12/12/22 15:17 ons oxycodone AdvReac Intermediate Hallucinati Verified 12/12/22 15:17 ng prednisone AdvReac Intermediate HYPERGLYCEM Verified 12/12/22 15:17 IA propoxyphene AdvReac Intermediate DARVOCET--INSOMNIA, Verified 12/12/22 15:17 EXCESSIVE DRY MOUTH VINYL COVERING Allergy Intermediate Rash Uncoded 12/12/22 15:17 Consultations 12/12/22 19:00 ED Decision to Admit Stat Ordered Studies 12/12/22 14:41 US arterial duplex LE RT Stat 12/12/22 14:42 US venous doppler LE RT Stat Diabetes Follow up Diabetes Follow-up Needed for HgbA1c >9% Hospital Course (1) Acute leg pain: (2) PVD (peripheral vascular disease): Patient has past medical history of peripheral artery disease; had right lower extremity angioplasty and stent placement in February 2022 Patient had been dealing with right lower extremity pain and dry gangrene for last several month. She was recently seen by vascular surgery on December 03 for increasing pain; was prescribed tramadol. She presented to the ED with severe pain on right lower extremity which woke her up from her sleep. Arterial Doppler results personally reviewed; showed stenosis of profunda femoris artery and popliteal artery. ED physician talked with vascular surgery at [facility] (Dr. Silverio); patient accepted for transfer. Patient transferred to [facility] [place]. She was recommended to be started on heparin drip while she is hospitalized here. (3) Acute kidney injury superimposed on chronic kidney disease: Presents with a creatinine of 2.1 Labs reviewed today; creatinine of 2.31 Baseline creatinine of 1.6-1.7 Holding off on Lasix and losartan for now. Monitor daily BMP (4) Diabetes mellitus, type II, insulin dependent: (5) Morbid obesity: Plan Chronic conditions; Hypertension: Continue Coreg. Holding the losartan and Lasix. Monitor the blood pressure. Hyperlipidemia: On statin. History of chronic systolic and diastolic congestive heart failure, ejection fraction of 45% to 49% on echo done in May 2022. Holding the diuretic, Lasix. History of coronary artery disease, status post stent: On Coreg, aspirin, Plavix, and statin. History of complete heart block, status post pacemaker. Peripheral vascular disease: On aspirin, Plavix, and statin. Anemia of chronic kidney disease. Hemoglobin of 13. We will follow the labs. Deep venous thrombosis prophylaxis. Currently on IV heparin. Total Time Total Time Spent Total Time Spent (In Minutes): 40 Total Time Includes: Examination of the Patient, Discharge Planning, Medication Reconciliation, Communication With Other Providers and Other Discharge Plan Discharge Items Patient Disposition: Transfer Acute Care Hospital Reason For Visit: RIGHT LOWER EXT PAIN Discharge Diagnosis: Acute on chronic right lower extremity peripheral vascular disease Activity: As commented below Activity Comment: As per stalin Non-emergency contact: Primary Care Provider Call non-emergency contact if: you have any medication questions and your symptoms worsen Follow-up/Referrals: Rk Jones MD [Primary Care Provider] - Diet: Nothing by Mouth Addtl Attending Provider Instructions: iv zosyn iv dilaudid 0.5mg q 3hrs prn hold for sedation iv heparin Adjust Insulin dose if NPO. Pending Studies at Discharge: No Stand-Alone Forms: My [employer] Skilled Items Patient informed of condition?: Yes DNR: No Discharge Level of Care: Other Communicable Disease: No Discharge Prognosis: Other Lines: Peripheral IV Urinary Catheter: No Medications and DC Order Prescriptions: Continued cyanocobalamin (vitamin B-12) 100 mcg Tablet 100 mcg PO DAILY Patient Comments: unknown strength (10/01/19) clopidogrel 75 mg tablet 75 mg PO DAILY aspirin 81 mg Tablet,Delayed Release (Dr/Ec) 81 mg PO DAILY montelukast 10 mg tablet 10 mg PO DAILY loratadine 10 mg Tablet 10 mg PO DAILY budesonide 32 mcg/actuation [place],Non-Aerosol 2 spray INTRANASAL DAILY insulin aspart U-100 [Novolog FlexPen U-100 Insulin] 100 unit/mL (3 mL) insulin pen See Rx Instructions .ROUTE .COMPLEX Rx Instructions: TAKES 12 UNITS WITH BREAKFAST & LUNCH, THEN 10 UNITS WITH DINNER. rosuvastatin 40 mg Tablet 40 mg PO DAILY diclofenac sodium 1 % Gel 4 g TOPICAL QID PRN (Reason: Pain) Trulicity 3 mg/0.5 mL pen injector 3 mg SUBCUT WK multivitamin Tablet 1 tab PO DAILY furosemide [Lasix] 40 mg Tablet 40 mg PO DAILY Rx Instructions: PER [facility], MAY TAKE ADDITIONAL DOSE IF NEEDED. carvedilol 6.25 mg tablet 6.25 mg PO BID doxycycline hyclate 100 mg capsule 100 mg PO BID Rx Instructions: STARTED 12/03/22 FOR 14 DAYS calcium carbonate 200 mg calcium (500 mg) Tablet,Chewable 200 mg PO QAM losartan 25 mg tablet 25 mg PO DAILY magnesium oxide 200 mg magnesium Tablet,Chewable 400 mg PO QAM gabapentin 100 mg capsule 300 mg PO QDL Rx Instructions: PER [facility] REPORTED 03/04/21. ORDERED 200 MG TID PER [facility]. insulin glargine [Lantus Solostar U-100 Insulin] 100 unit/mL (3 mL) insulin pen 25 unit SUBCUT [facility] albuterol sulfate 2.5 mg /3 mL (0.083 %) solution for nebulization 2.5 mg inhalation Q4 PRN (Reason: Wheezing) tramadol 50 mg Tablet 50 mg PO Q6H PRN (Reason: severe pain (scale score 7-10)) Qty: 25 0RF Discharge Orders: Discharge Order (Routine); Ordered 12/13/22 Ordered By: Johan Heller/Other Patient Handouts: A1C, Managing Type 2 Diabetes, Special Foot Care for Diabetes Admission Data Admit Date/Time: 12/12/22 20:03 Attending Provider: Dylan Gilman Admit Provider: Johan Bradley Primary Care Provider: Rk Jones Other Providers: Johan Bradley Other Interventions: Discharge Summary Assessment (RN) Last Done: 12/14/22 01:50
== END 2022-12-14 01:58 | disposition short-term general hospital (02) | DRG 300 ==
LOC: ED 13:12 → 2N 20:03

== ENCOUNTER 2024-03-09 13:59 | Inpatient (IN) ==
--- NOTE | 2024-03-09 14:25 | Emergency Department Note ---
Impression & Plan Acute and chronic respiratory failure, unspecified whether with hypoxia or hypercapnia, CHF exacerbation, Anemia ED Provider Note NAME: MAGGY TELLEZ AGE: 78 SEX: F : 1945 ARRIVES VIA: Ambulance INFORMANT: Patient ED PROVIDER(S): Yeyo Reaves DO CHIEF COMPLAINT: shortness of breath HPI: Patient is a 78-year-old female with a past medical history of arterial occlusion, CKD, diabetes, sleep apnea, systolic and diastolic heart failure who presents to the ER for shortness of breath which has been getting worse since Mariano's Day. She notes it got significantly worse over the past week and even more so last night. Denies any chest pain. Denies any new swelling that she is aware of but notes that she always have swelling in her legs. She does not weigh herself regularly. Chronically wears 3 L nasal cannula. Has been taking her Eliquis and has not missed any doses. Denies any dysuria, urgency, or frequency. No other exacerbating or remitting factors. She notes that she does have a pericardial effusion and a pleural effusion as well. ADDITIONAL HISTORY OBTAINED: Per HPI Chronic Medical/Social Conditions Affecting Care: Per HPI PAST MEDICAL HISTORY:See Below PAST SURGICAL HISTORY:See Below FAMILY HISTORY:See Below SOCIAL HISTORY:See Below HOME MEDICATIONS:See Below ALLERGIES:See Below VITALS:See Below PHYSICAL EXAMINATION: GENERAL: Sitting up in bed, alert, disheveled, on 3 L nasal cannula, obese EYE EXAM: normal conjunctiva. PERRL and EOM's grossly intact. OROPHARYNX: no exudate, no erythema, lips, buccal mucosa, and tongue normal and mucous membranes are moist NECK: supple, no nuchal rigidity, no adenopathy, non-tender LUNGS: Clear to auscultation. Normal chest wall mechanics HEART: no murmurs, S1 normal and S2 normal ABDOMEN: abdomen soft, non-tender, normo-active bowel sounds, no masses, no rebound or guarding. BACK: Back is symmetrical on inspection and there is no deformity, no midline tenderness, no CVA tenderness. SKIN: no rashes and no bruising UPPER EXTREMITIES: upper extremities are grossly normal. LOWER EXTREMITIES: Pitting edema in the bilateral lower extremities NEURO EXAM: Normal sensorium, cranial nerves II-XII grossly intact, normal speech, no gross weakness of arms, no gross weakness of legs. MEDICAL DECISION MAKING: Patient is a 78-year-old female who presents ER for the above-stated complaint. IV was established blood work was obtained. She was not hypoxic on chronic 3 L nasal cannula. Labs show no leukocytosis. Mild anemia 11. BMP with creatinine 1.7 which is actually improved from previous. LFTs bilirubin is unremarkable. Troponin was slightly elevated in the 40s. Lipase normal. Viral panel was negative. Chest x-ray does suggest some CHF. External records were reviewed and weight slightly improved from previous visits. Patient was updated bedside. She was given Lasix. Discussed the case with the hospitalist for further evaluation management and treatment. Consults/Care Managements Discussions: Per MDM Triage Nursing notes reviewed. Limited review of prior medical records performed Vital Signs: reviewed and remarkable for no significant abnormalities Differential diagnosis: Differential diagnoses includes but is not limited to pneumonia, bronchitis, COPD/Asthma exacerbation, pneumothorax, pulmonary embolism, congestive heart failure, acute coronary syndrome ER treatment provided: See below Diagnostics interpreted by me include EKG and cardiac monitoring as listed below: -Cardiac Monitoring: An order was placed for continuous cardiac monitoring. The monitor shows a rate of 80 with sinus rhythm. -ECG: Ventricularly paced rate of 77 Left axis No PVCs QTc 454 -Laboratory studies:Interpreted by me as stated above in MDM and shown below. Imaging studies: Xrays: As interpreted by me: Portable AP upright 1 view of the chest shows bilateral trace CTs show: none Procedures:none Critical Care: None Past Med/Surg History Problem List (Updated 03/09/24 @ 20:10 by Yeyo Reaves DO) Anemia (Acute) CHF exacerbation (Acute) Acute and chronic respiratory failure, unspecified whether with hypoxia or hypercapnia (Acute) Arterial occlusion (Acute) Acute leg pain (Acute) Fall (Acute) Weakness (Acute) Closed right fibular fracture (Acute) Hypomagnesemia (Acute) Delirium Encephalopathy Altered mental status Acute kidney injury superimposed on chronic kidney disease Diabetes mellitus, type II Cellulitis of right leg Scalp laceration Fall (Acute) Weakness (Acute) Volume excess Shital-prosthetic fracture of proximal tibia (Acute) Fracture of proximal end of fibula (Acute) Hyperglycemia (Acute) CKD (chronic kidney disease) (Acute) Leukocytosis (Acute) Sleep apnea Hyperkalemia Leukocytosis Periprosthetic fracture around 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 Excessive daytime sleepiness Morbid obesity due to excess calories Obesity hypoventilation syndrome Noncompliance with medication regimen PVD (peripheral vascular disease) CKD (chronic kidney disease), stage III Nonischemic cardiomyopathy HTN (hypertension) Dyslipidemia Diabetes mellitus, type II, insulin dependent Morbid obesity Asthma Pacemaker History of cataract removal with insertion of prosthetic lens History of carpal tunnel release H/O tubal ligation Dehydration (Acute) Complete heart block (Acute 06/14/14) Medical History Nausea & vomiting Diabetes mellitus, type II Sleep apnea Combined congestive systolic and diastolic heart failure Excessive daytime sleepiness Morbid obesity due to excess calories PVD (peripheral vascular disease) CKD (chronic kidney disease), stage III Nonischemic cardiomyopathy HTN (hypertension) Dyslipidemia Diabetes mellitus, type II, insulin dependent Asthma Granulomatous interstitial lung disease Physical deconditioning Pacemaker Complete heart block (06/14/14) Surgical History History of total knee arthroplasty 2005; bilateral History of cardiac cath 2014 - normal coronary arteries; Dr Jorgensen at [facility] [place] History of revascularization procedure of lower extremity fem/pop artery revascularization RLE; 09/2017; Dr Gill at [facility] [place] Family History Mother Leukemia Son Asthma Brother Stroke Social History Smoking Status: Never smoker Second Hand Exposure: No; Do You Dip or Chew Tobacco: No; Hx Alcohol Use: Yes Hx Substance Use: No Preferred Language: Bengali Communication Ability: Effective Cooler Deliverer Required: No Beliefs That Will Affect Care: None marital status: Current Living Situation: Spouse Current Living Situation Comment: In a 2 story house with Feels Safe at Home: Yes Assistive Devices: Oxygen - Continuous, Scooter/Electric Scooter, Walker and Wheelchair Allergies Allergies Allergy/AdvReac Type Severity Reaction Status Date / Time fluticasone Allergy Severe WATER ON Verified 03/09/24 18:38 LUNGS, SHORT OF BREATH mold Allergy Severe BLACK Verified 03/09/24 18:38 MOLD--SEE COMMENT salmeterol Allergy Severe WATER ON Verified 03/09/24 18:38 LUNGS, SHORT OF BREATH benzocaine Allergy Unknown Unknown Verified 03/09/24 18:38 Corticosteroids Allergy Anaphylaxis Verified 03/09/24 18:38 (Glucocorticoids) hydrocodone [From Vicodin] AdvReac Intermediate hallucinati Verified 03/09/24 18:38 ons oxycodone AdvReac Intermediate Hallucinati Verified 03/09/24 18:38 ng prednisone AdvReac Intermediate HYPERGLYCEM Verified 03/09/24 18:38 IA propoxyphene AdvReac Intermediate DARVOCET--INSOMNIA, Verified 03/09/24 18:38 EXCESSIVE DRY MOUTH VINYL COVERING Allergy Intermediate Rash Uncoded 03/09/24 18:38 Home Meds Home Medications Medication Instructions Recorded Confirmed clopidogrel 75 mg tablet 75 mg PO QAM 10/01/19 03/09/24 loratadine 10 mg tablet 10 mg PO QAM 10/01/19 03/09/24 montelukast 10 mg tablet 10 mg PO QAM 10/01/19 03/09/24 insulin aspart U-100 100 unit/mL 0 unit subcut TIDM 09/22/21 03/09/24 (3 mL) subcutaneous pen (Novolog FlexPen U-100 Insulin aspart) rosuvastatin 40 mg tablet 40 mg PO QAM 09/22/21 03/09/24 albuterol sulfate 2.5 mg/3 mL 2.5 mg inhalation Q4 PRN Wheezing 03/20/22 03/09/24 (0.083 %) solution for nebulization insulin glargine 100 unit/mL (3 0 unit subcut AMHS 03/20/22 03/09/24 mL) subcutaneous pen (Lantus Solostar U-100 Insulin) gabapentin 100 mg capsule 200 mg PO TID 12/12/22 03/09/24 losartan 25 mg tablet 25 mg PO QAM 12/12/22 03/09/24 magnesium oxide 400 mg PO QAM 12/12/22 03/09/24 multivitamin 1 tab PO QAM 12/12/22 03/09/24 apixaban 5 mg tablet (Eliquis) 5 mg PO BID 10/28/23 03/09/24 benzonatate 100 mg capsule 100 mg PO TID PRN Cough 10/28/23 03/09/24 zolpidem 5 mg tablet (Ambien) 5 mg PO HS PRN Sleep 10/28/23 03/09/24 Prevagen 1 cap PO QAM 12/08/23 03/09/24 cyanocobalamin (vitamin B-12) 2,000 mcg PO QAM 12/08/23 03/09/24 2,000 mcg tablet,extended release (Vitamin B-12 ER) diphenoxylate-atropine 2.5 2 tab PO Q6H PRN Diarrhea 12/08/23 03/09/24 mg-0.025 mg tablet (Lomotil) polyethylene glycol 3350 17 17 g PO DAILY PRN Constipation 12/08/23 03/09/24 gram/dose oral powder (Miralax) potassium gluconate 550 mg (90 mg) 550 mg PO QAM 12/08/23 03/09/24 tablet sennosides 8.6 mg-docusate sodium 1 tab-cap PO QAM PRN Constipation 12/08/23 03/09/24 50 mg tablet (Senna-S) metoprolol succinate 50 mg 50 mg PO QAM 03/09/24 03/09/24 tablet,extended release 24 hr torsemide 20 mg tablet 40 mg PO QAM 03/09/24 03/09/24 Previous Rx's Medication Instructions Recorded tramadol 50 mg tablet 50 mg PO Q6H PRN severe pain 03/31/22 (scale score 7-10) #25 tabs Results & Data (ED) Vital Signs Vital Signs - 24 hr 03/09/24 14:05 03/09/24 14:14 03/09/24 14:14 Temperature 36.7 C Temperature Source Oral Pulse Rate 85 75 124 H Pulse Rate [Apical] Respiratory Rate 16 23 Respiratory Effort / Characteristics Respiratory Depth Blood Pressure 150/100 H 150/100 H Blood Pressure [Right Arm] Blood Pressure Mean 109 116 Blood Pressure Mean [Right Arm] Pulse Oximetry 95 95 Oxygen Delivery Method Nasal Cannula Oxygen Flow Rate 3 Sepsis Recent Fever Within 48 Hours No Sepsis New/Unexplained Change in Mental Status No Sepsis Action Taken by Nursing No Action Required 03/09/24 18:00 03/09/24 18:02 03/09/24 18:03 Temperature Temperature Source Pulse Rate 64 Pulse Rate [Apical] 59 L Respiratory Rate 16 Respiratory Effort / Characteristics Non-Labored Spontaneous Respiratory Depth Normal Blood Pressure Blood Pressure [Right Arm] 126/63 Blood Pressure Mean Blood Pressure Mean [Right Arm] 84 Pulse Oximetry 90 97 Oxygen Delivery Method Nasal Cannula Room Air Oxygen Flow Rate 3 3 Sepsis Recent Fever Within 48 Hours Sepsis New/Unexplained Change in Mental Status Sepsis Action Taken by Nursing Laboratory Data 03/09/24 14:20 03/09/24 16:16 Lab Results 03/09/24 03/09/24 Range/Units 14:20 16:16 WBC 10.06 (4.8-10.8) K/ul RBC 4.03 L (4.20-5.40) M/uL Hgb 11.5 L (12.0-16.0) g/dl Hct 36.8 L (37.0-47.0) % MCV 91.3 (80.0-100.0) fL MCH 28.5 (25.0-34.0) pg MCHC 31.3 L (32.0-36.0) g/dL RDW Std Deviation 55.2 H (36.4-46.3) fL RDW Coeff of Javier 16.6 H (11.5-14.5) % Plt Count 208 (130-400) K/uL MPV 9.7 (9.4-12.4) fL Immature Gran % (Auto) 0.4 % Neut % (Auto) 76.4 % Lymph % (Auto) 8.7 % [place] % (Auto) 7.3 % Eos % (Auto) 6.5 % Baso % (Auto) 0.7 % Neut # (Auto) 7.69 H (1.40-6.50) K/uL Lymph # (Auto) 0.88 L (1.20-3.40) K/uL [place] # (Auto) 0.73 H (0.11-0.59) K/uL Eos # (Auto) 0.65 H (0.00-0.50) K/uL Baso # (Auto) 0.07 (0.00-0.20) K/uL Immature Gran # (Auto) 0.04 (0.01-0.20) K/uL Sodium TNP 137 Potassium TNP 4.9 Chloride 97 L (98-107) mmol/L Carbon Dioxide 32 (21-32) mmol/L Anion Gap TNP BUN 26 H (6-23) mg/dl Creatinine 1.76 H (0.6-1.2) mg/dl Est Cr Clr Drug Dosing 34.3 ml/min Est GFR ( Amer) 31.6 ml/min Est GFR (Non-Af Amer) 27.2 ml/min BUN/Creatinine Ratio 14.8 (10-20) Glucose 180 H (70-99(Fasting)) mg/dl Calcium 9.8 (8.6-10.3) mg/dl Total Bilirubin 0.4 (0.2-1.0) mg/dl AST TNP 22 ALT 11 (7-52) U/L Alkaline Phosphatase 69 (34-104) U/L Troponin I High Sens 36.4 H 42.2 H (0-14) pg/ml Total Protein 8.0 (6.0-8.3) gm/dl Albumin 3.4 (3.4-5.0) gm/dl Globulin 4.6 H (2.5-4.0) gm/dl Albumin/Globulin Ratio 0.7 L (0.9-2) Lipase 36 (11-82) U/L Adenovirus (PCR) Not Detected (NotDetected) B. pertussis DNA (PCR) Not Detected (NotDetected) B.parapertussis DNA PCR Not Detected (NotDetected) C. pneumoniae DNA (PCR) Not Detected (NotDetected) Coronavirus OC43 (PCR) Not Detected (NotDetected) Coronavirus HKU1 (PCR) Not Detected (NotDetected) Coronavirus 229E (PCR) Not Detected (NotDetected) SARS-CoV-2 (PCR) Not Detected (NotDetected) Coronavirus NL63 (PCR) Not Detected (NotDetected) Human Metapneumovir PCR Not Detected (NotDetected) Influenza Type A (PCR) Not Detected (NotDetected) Influenza Type B (PCR) Not Detected (NotDetected) M. pneumoniae (PCR) Not Detected (NotDetected) Parainfluenza 1 (PCR) Not Detected (NotDetected) Parainfluenza 2 (PCR) Not Detected (NotDetected) Parainfluenza 3 (PCR) Not Detected (NotDetected) Parainfluenza 4 (PCR) Not Detected (NotDetected) RSV (PCR) Not Detected (NotDetected) Entero/Rhino (PCR) Not Detected (NotDetected) Administered Medications Discontinued Medications Furosemide (Furosemide 40 Mg/4 Ml Vial) 40 mg IV ONE ONE Stop: 03/09/24 17:12 Last Admin: 03/09/24 17:58 Dose: 40 mg Documented By: ANDREW Lorazepam (Lorazepam 0.5 Mg Tab) 0.5 mg PO NOW STA Stop: 03/09/24 17:46 Last Admin: 03/09/24 17:58 Dose: 0.5 mg Documented By: ANDREW Imaging Data Radiologist's Impression: Chest X-Ray 03/09/24 14:14 XR chest 1V portable HISTORY: Chest pain, nonspecific COMPARISON: Chest 01/20/2024. FINDINGS: There are low lung volumes. No pneumothorax. The heart remains enlarged. Is left-sided pacemaker again noted. Slight progression of the diffuse interstitial/vascular thickening and patchy airspace opacities. This suggests worsening pulmonary edema. A superimposed pneumonia would be difficult to exclude. There are trace bilateral pleural effusions. IMPRESSION: Interval progression of the diffuse interstitial/vascular thickening and patchy airspace opacities. This suggests worsening pulmonary edema. A superimposed pneumonia would be difficult to exclude. ACT 112: Negative or not required by law. Electronically signed by: Jj Solano M.D. 03/09/2024 3:11 PM Discharge Plan Visit Data Chief Complaint: Respiratory Problems Stated Complaint: RESPIRATORY DIFFICULTIES/ANXIOUS ED Provider: Yeyo Reaves Discharge Problem: Acute and chronic respiratory failure, unspecified whether with hypoxia or hypercapnia, CHF exacerbation, Anemia Patient Disposition: Admitted As Inpatient Discharge Instructions Interventions: ED Discharge Assessment Last Done: 03/09/24 18:40 Forms Stand Alone Forms: My [facility] [place] [employer] Funding Prescriptions Prescriptions: No Action clopidogrel 75 mg tablet 75 mg PO QAM montelukast 10 mg tablet 10 mg PO QAM loratadine 10 mg Tablet 10 mg PO QAM insulin aspart U-100 [Novolog FlexPen U-100 Insulin] 100 unit/mL (3 mL) insulin pen 0 unit subcut TIDM Rx Instructions: Unable to verify at this date/time. Original Directions: 20units three times daily w/ meals rosuvastatin 40 mg Tablet 40 mg PO QAM multivitamin Tablet 1 tab PO QAM losartan 25 mg tablet 25 mg PO QAM magnesium oxide 200 mg magnesium Tablet,Chewable 400 mg PO QAM gabapentin 100 mg capsule 200 mg PO TID insulin glargine [Lantus Solostar U-100 Insulin] 100 unit/mL (3 mL) insulin pen 0 unit SUBCUT AMHS Rx Instructions: Unable to verify at this date/time. Original Directions: 25units twice daily AM/HS albuterol sulfate 2.5 mg /3 mL (0.083 %) solution for nebulization 2.5 mg inhalation Q4 PRN (Reason: Wheezing) tramadol 50 mg Tablet 50 mg PO Q6H PRN (Reason: severe pain (scale score 7-10)) Qty: 25 0RF sennosides-docusate sodium [Senna-S] 8.6-50 mg Tablet 1 tab-cap PO QAM PRN (Reason: Constipation) diphenoxylate-atropine [Lomotil] 2.5-0.025 mg Tablet 2 tab PO Q6H PRN (Reason: Diarrhea) cyanocobalamin (vitamin B-12) [Vitamin B-12] 2,000 mcg Tablet Extended Release 2,000 mcg PO QAM polyethylene glycol 3350 [Miralax] 17 gram/dose Powder 17 g PO DAILY PRN (Reason: Constipation) potassium gluconate 550 mg (90 mg) Tablet 550 mg PO QAM Prevagen 1 cap PO QAM torsemide 20 mg tablet 40 mg PO QAM metoprolol succinate 50 mg tablet extended release 24 hr 50 mg PO QAM benzonatate 100 mg capsule 100 mg PO TID PRN (Reason: Cough) zolpidem [Ambien] 5 mg tablet 5 mg PO HS PRN (Reason: Sleep) Eliquis 5 mg tablet 5 mg PO BID Referrals Referrals: Rk Jones MD [Primary Care Provider] - Discharge Problem: Acute and chronic respiratory failure, unspecified whether with hypoxia or hypercapnia Qualifiers: Respiratory failure complication: unspecified whether with hypoxia or hypercapnia Qualified Code(s): J96.20 - Acute and chronic respiratory failure, unspecified whether with hypoxia or hypercapnia CHF exacerbation Qualifiers: Heart failure type: unspecified Qualified Code(s): I50.9 - Heart failure, unspecified Anemia Qualifiers: Anemia type: unspecified type Qualified Code(s): D64.9 - Anemia, unspecified
[2024-03-09 14:44] LABS: Basophils # (auto) 0.07 K/uL (0.00-0.20); Basophils % (auto) 0.7 %; Eosinophils # (auto) 0.65 K/uL (0.00-0.50); Eosinophils % (auto) 6.5 %; Hematocrit (blood only) 36.8 % (37.0-47.0); Hemoglobin 11.5 g/dl (12.0-16.0); Immature Granulocytes # (auto) 0.04 K/uL (0.01-0.20); Immature Granulocytes % (auto) 0.4 %; Lymphocytes # (auto) 0.88 K/uL (1.20-3.40); Lymphocytes % (auto) 8.7 %; Mean Corpuscular Hemoglobin 28.5 pg (25.0-34.0); Mean Corpuscular Hgb Conc 31.3 g/dL (32.0-36.0); Mean Corpuscular Volume 91.3 fL (80.0-100.0); Mean Platelet Volume 9.7 fL (9.4-12.4); Monocytes # (auto) 0.73 K/uL (0.11-0.59); Monocytes % (auto) 7.3 %; Neutrophils # (auto) 7.69 K/uL (1.40-6.50); Neutrophils % (auto) 76.4 %; Platelet Count 208 K/uL (130-400); RDW Coefficient of Variation 16.6 % (11.5-14.5); RDW Standard Deviation 55.2 fL (36.4-46.3); Red Blood Count 4.03 M/uL (4.20-5.40); White Blood Count 10.06 K/ul (4.8-10.8)
--- NOTE | 2024-03-09 15:13 | XRay Report ---
XR chest 1V portable HISTORY: Chest pain, nonspecific COMPARISON: Chest 01/20/2024. FINDINGS: There are low lung volumes. No pneumothorax. The heart remains enlarged. Is left-sided pace maker again noted. Slight progression of the diffuse interstitial/vascular thickening and patchy airs pace opacities. This suggests worsening pulmonary edema. A superimposed pneumonia would be difficult to exclude. There are trace bilateral pleural effusions. IMPRESSION: Interval progression of the diffuse interstitial/vascular thickening and patchy airspace opacities. T his suggests worsening pulmonary edema. A superimposed pneumonia would be difficult to exclude. ACT 112: Negative or not required by law. Electronically signed by: Jj Solano M.D. 03/09/2024 3:11 PM
[2024-03-09 15:26] LABS: Troponin I High Sensitivity 36.4 pg/ml (0-14)
[2024-03-09 15:30] LABS: Alanine Aminotransferase 11 U/L (7-52); Albumin Globulin Ratio 0.7 (0.9-2); Albumin Level 3.4 gm/dl (3.4-5.0); Alkaline Phosphatase 69 U/L (34-104); BUN Creatinine Ratio 14.8 (10-20); Bilirubin,Total 0.4 mg/dl (0.2-1.0); Blood Urea Nitrogen 26 mg/dl (6-23); Calcium 9.8 mg/dl (8.6-10.3); Carbon Dioxide 32 mmol/L (21-32); Chloride 97 mmol/L (98-107); Creatinine Clr Calc Pharmacy 34.3 ml/min; Est GFR (African American) 31.6 ml/min; Est GFR (Non-African American) 27.2 ml/min; Globulin 4.6 gm/dl (2.5-4.0); Glucose 180 mg/dl (70-99(Fasting)); Lipase 36 U/L (11-82)
[2024-03-09 17:02] LABS: Potassium 4.9 mmol/L (3.5-5.1)
--- NOTE | 2024-03-09 17:06 | Electrocardiogram Report ---
Test Reason : Blood Pressure : / mmHG Vent. Rate : 077 BPM Atrial Rate : 468 BPM P-R Int : 000 ms QRS Dur : 126 ms QT Int : 402 ms P-R-T Axes : 000 044 111 degrees QTc Int : 454 ms Ventricular-paced rhythm Abnormal ECG When compared with ECG of 20-JAN-2024 08:03, Vent. rate has decreased BY 3 BPM Confirmed by David Brooks ([id number]) on 03/09/2024 5:05:34 PM Referred By: Confirmed By:Sathish Brooks
--- NOTE | 2024-03-09 17:35 | History & Physical Report ---
Date of Service March 09, 2024 Assessment & Plan (1) Acute and chronic respiratory failure, unspecified whether with hypoxia or hypercapnia: (2) CHF exacerbation: Plan: 78-year-old female with history of chronic hypoxic respiratory failure on 3 L of oxygen, asthma, obstructive sleep apnea, coronary disease, status post stent, CHF systolic and diastolic type, paroxysmal atrial fibrillation on Eliquis, peripheral vascular disease, diabetes type 2, hypertension, dyslipidemia, CKD stage IV, DVT, peripheral vascular disease, presenting for progressive shortness of breath x 1 week. Shortness of breath secondary to: Acute exacerbation of congestive heart failure, combined systolic and diastolic type Usually takes torsemide 40 mg daily along with Toprol-XL and losartan 25 mg daily CXR: Interval progression of the diffuse interstitial/vascular thickening and patchy airspace opacities. This suggests worsening pulmonary edema. A superimposed pneumonia would be difficult to exclude. Lasix 40 mg IV given Echocardiogram ordered Cardiology, nephrology service was consulted Rule out pneumonia, asthma exacerbation CT chest ordered: Pending BioFire negative Urine Legionella antigen: Pending Start empiric IV P.o.ceftriaxone plus doxycycline Xopenex 3 times daily, hypertonic saline twice daily Incentive spirometer, flutter valve, Mucinex twice daily Chronic hypoxic respiratory failure Remains on 3 L of oxygen via nasal cannula, which is her baseline Monitor closely Coronary artery disease, status post stent placement Troponin 36, 42, repeat troponin pending No cardiac symptoms at this point EKG no signs of acute ischemia or infarct Echocardiogram ordered Continue usual Plavix, rosuvastatin, Toprol-XL, losartan Complete heart block status post pacemaker Denies palpitations, syncope or presyncope Paroxysmal atrial fibrillation Continue metoprolol XL 50 mg daily, Eliquis 5 mg p.o. twice daily Peripheral vascular disease Continue Plavix, rosuvastatin, Eliquis Diabetes type 2 On glargine and NovoLog at home Glycemic control service consulted Hypertension Continue metoprolol, losartan CKD stage IV At baseline Will consult nephrology service for assistance with diuretic management History of DVT On Eliquis CODE STATUS full code Disposition PT and OT evaluation when medically stable Lives at home with family History of Present Illness Chief Complaint: Shortness of breath x 1 week Primary Care Provider: Rk Jones MD 78-year-old female with history of chronic hypoxic respiratory failure on 3 L of oxygen, asthma, obstructive sleep apnea, coronary disease, status post stent, CHF systolic and diastolic type, paroxysmal atrial fibrillation on Eliquis, peripheral vascular disease, diabetes type 2, hypertension, dyslipidemia, CKD stage IV, DVT, peripheral vascular disease, presenting for progressive shortness of breath x 1 week. Patient reportssShortness of breath which began earlier this year but seems to have worsened for the past 1 to 2 weeks. She is also experiencing cough productive of yellow, occasionally brown sputum, but no fevers or chills, chest pain. 1 week history of progressive shortness of breath associated with cough. At the ER, noted to be saturating 100% on 3 L of oxygen. Physical exam revealing crackles at the bases, bilateral lower extremity edema. Chest x-ray showing pulmonary edema versus pneumonia Bio fire negative BNP pending Troponin 36, 42 EKG no signs of acute ischemia or infarct On exam patient seen resting in bed, on 3 L of O2 via nasal cannula, comfortable, not in distress. States breathing starting to improve since admission. No active shortness of breath, chest pain, dizziness, nausea vomiting during my examination Allergies Allergy/AdvReac Type Severity Reaction Status Date / Time fluticasone Allergy Severe WATER ON Verified 03/09/24 18:38 LUNGS, SHORT OF BREATH mold Allergy Severe BLACK Verified 03/09/24 18:38 MOLD--SEE COMMENT salmeterol Allergy Severe WATER ON Verified 03/09/24 18:38 LUNGS, SHORT OF BREATH benzocaine Allergy Unknown Unknown Verified 03/09/24 18:38 Corticosteroids Allergy Anaphylaxis Verified 03/09/24 18:38 (Glucocorticoids) hydrocodone [From Vicodin] AdvReac Intermediate hallucinati Verified 03/09/24 18:38 ons oxycodone AdvReac Intermediate Hallucinati Verified 03/09/24 18:38 ng prednisone AdvReac Intermediate HYPERGLYCEM Verified 03/09/24 18:38 IA propoxyphene AdvReac Intermediate DARVOCET--INSOMNIA, Verified 03/09/24 18:38 EXCESSIVE DRY MOUTH VINYL COVERING Allergy Intermediate Rash Uncoded 03/09/24 18:38 Home Medications Medication Instructions Recorded Confirmed Type clopidogrel 75 mg tablet 75 mg PO QAM 10/01/19 03/09/24 History loratadine 10 mg tablet 10 mg PO QAM 10/01/19 03/09/24 History montelukast 10 mg tablet 10 mg PO QAM 10/01/19 03/09/24 History insulin aspart U-100 100 unit/mL 0 unit subcut TIDM 09/22/21 03/09/24 History (3 mL) subcutaneous pen (Novolog FlexPen U-100 Insulin aspart) rosuvastatin 40 mg tablet 40 mg PO QAM 09/22/21 03/09/24 History albuterol sulfate 2.5 mg/3 mL 2.5 mg inhalation Q4 PRN Wheezing 03/20/22 03/09/24 History (0.083 %) solution for nebulization insulin glargine 100 unit/mL (3 0 unit subcut AMHS 03/20/22 03/09/24 History mL) subcutaneous pen (Lantus Solostar U-100 Insulin) tramadol 50 mg tablet 50 mg PO Q6H PRN severe pain 03/31/22 03/09/24 Rx (scale score 7-10) #25 tabs gabapentin 100 mg capsule 200 mg PO TID 12/12/22 03/09/24 History losartan 25 mg tablet 25 mg PO QAM 12/12/22 03/09/24 History magnesium oxide 400 mg PO QAM 12/12/22 03/09/24 History multivitamin 1 tab PO QAM 12/12/22 03/09/24 History apixaban 5 mg tablet (Eliquis) 5 mg PO BID 10/28/23 03/09/24 History benzonatate 100 mg capsule 100 mg PO TID PRN Cough 10/28/23 03/09/24 History zolpidem 5 mg tablet (Ambien) 5 mg PO HS PRN Sleep 10/28/23 03/09/24 History Prevagen 1 cap PO QAM 12/08/23 03/09/24 History cyanocobalamin (vitamin B-12) 2,000 mcg PO QAM 12/08/23 03/09/24 History 2,000 mcg tablet,extended release (Vitamin B-12 ER) diphenoxylate-atropine 2.5 2 tab PO Q6H PRN Diarrhea 12/08/23 03/09/24 History mg-0.025 mg tablet (Lomotil) polyethylene glycol 3350 17 17 g PO DAILY PRN Constipation 12/08/23 03/09/24 History gram/dose oral powder (Miralax) potassium gluconate 550 mg (90 mg) 550 mg PO QAM 12/08/23 03/09/24 History tablet sennosides 8.6 mg-docusate sodium 1 tab-cap PO QAM PRN Constipation 12/08/23 03/09/24 History 50 mg tablet (Senna-S) metoprolol succinate 50 mg 50 mg PO QAM 03/09/24 03/09/24 History tablet,extended release 24 hr torsemide 20 mg tablet 40 mg PO QAM 03/09/24 03/09/24 History Past Med/Surg History Problem List (Updated 03/09/24 @ 17:33 by Randy Shaver MD) CHF exacerbation Acute and chronic respiratory failure, unspecified whether with hypoxia or hypercapnia Arterial occlusion (Acute) Acute leg pain (Acute) Fall (Acute) Weakness (Acute) Closed right fibular fracture (Acute) Hypomagnesemia (Acute) Delirium Encephalopathy Altered mental status Acute kidney injury superimposed on chronic kidney disease Diabetes mellitus, type II Cellulitis of right leg Scalp laceration Fall (Acute) Weakness (Acute) Volume excess Shital-prosthetic fracture of proximal tibia (Acute) Fracture of proximal end of fibula (Acute) Hyperglycemia (Acute) CKD (chronic kidney disease) (Acute) Leukocytosis (Acute) Sleep apnea Hyperkalemia Leukocytosis Periprosthetic fracture around 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 Excessive daytime sleepiness Morbid obesity due to excess calories Obesity hypoventilation syndrome Noncompliance with medication regimen PVD (peripheral vascular disease) CKD (chronic kidney disease), stage III Nonischemic cardiomyopathy HTN (hypertension) Dyslipidemia Diabetes mellitus, type II, insulin dependent Morbid obesity Asthma Pacemaker History of cataract removal with insertion of prosthetic lens History of carpal tunnel release H/O tubal ligation Dehydration (Acute) Complete heart block (Acute 06/14/14) Medical History Nausea & vomiting Diabetes mellitus, type II Sleep apnea Combined congestive systolic and diastolic heart failure Excessive daytime sleepiness Morbid obesity due to excess calories PVD (peripheral vascular disease) CKD (chronic kidney disease), stage III Nonischemic cardiomyopathy HTN (hypertension) Dyslipidemia Diabetes mellitus, type II, insulin dependent Asthma Granulomatous interstitial lung disease Physical deconditioning Pacemaker Complete heart block (06/14/14) Surgical History History of total knee arthroplasty 2005; bilateral History of cardiac cath 2014 - normal coronary arteries; Dr Jorgensen at [facility] [place] History of revascularization procedure of lower extremity fem/pop artery revascularization RLE; 09/2017; Dr Gill at [facility] [place] Family History Mother Leukemia Son Asthma Brother Stroke Social History Smoking Status: Never smoker Second Hand Exposure: No; Do You Dip or Chew Tobacco: No; Hx Alcohol Use: Yes Hx Substance Use: No Preferred Language: Trinidadian Communication Ability: Effective Pet Caregiver Required: No Beliefs That Will Affect Care: None marital status: Current Living Situation: Spouse Current Living Situation Comment: In a 2 story house with Feels Safe at Home: Yes Assistive Devices: Oxygen - Continuous, Scooter/Electric Scooter, Walker and Wheelchair Review of Systems Review of Systems: all noted and negative except for above Physical Exam Physical Exam: General- oriented x 3, not in distress, speaks in sentences with no effort or accessory muscle use Eyes- anicteric Neck- no JVD Lungs- Mild crackles bilateral bases, no wheezing, good air entry bilaterally Heart- normal rate, regular rhythm; no murmurs Abdomen- normal bowel sounds, nondistended, soft, nontender Extremities-Mild bilateral lower extremity edema, no erythema/warmth/tenderness no calf tenderness Neuro- alert, oriented x 3; no gross focal neurologic deficits Skin- warm & dry Results & Data Results & Data Vital Signs (Past 12 Hours) Vital Signs Temp Pulse Resp BP Pulse Ox O2 Del Method O2 Flow Rate 03/09/24 14:14 124 H 03/09/24 14:14 36.7 C 75 23 150/100 H 95 Nasal Cannula 3 03/09/24 14:05 85 16 150/100 H 95 all noted and reviewed including below Code Status & VTE Plan VTE Prophylaxis Plan VTE Prophylaxis will be ordered: Yes
[2024-03-09] MEDS: LORazepam 0.5 MG TAB PO STA (17:58)
[2024-03-09] MEDS: FUROSEMIDE 40 MG/4 ML VIAL IV ONE (17:58)
[2024-03-09 18:43] LABS: Adenovirus PCR Not Detected (NotDetected); Bordetella parapertussis PCR Not Detected (NotDetected); Bordetella pertussis PCR Not Detected (NotDetected); Chlamydia pneumoniae PCR Not Detected (NotDetected); Coronavirus 229E PCR Not Detected (NotDetected); Coronavirus CoV-2 (COVID19)PCR Not Detected (NotDetected); Coronavirus HKU1 PCR Not Detected (NotDetected); Coronavirus NL63 PCR Not Detected (NotDetected); Coronavirus OC43PCR Not Detected (NotDetected); Human Metapneumovirus PCR Not Detected (NotDetected); Influenza A PCR Not Detected (NotDetected); Influenza B PCR Not Detected (NotDetected); Mycoplasma pneumoniae PCR Not Detected (NotDetected); Parainfluenza Virus 1 PCR Not Detected (NotDetected); Parainfluenza Virus 2 PCR Not Detected (NotDetected); Parainfluenza Virus 3 PCR Not Detected (NotDetected); Parainfluenza Virus 4 PCR Not Detected (NotDetected); Respiratory Syncytial VirusPCR Not Detected (NotDetected); Rhinovirus/Enterovirus PCR Not Detected (NotDetected)
[2024-03-09] MEDS ORDERED: ACETAMINOPHEN 325 MG TAB PO PRN (20:23)
[2024-03-09] MEDS ORDERED: CARBOHYDRATES FOR HYPOGLYCEMIA PO PRN (20:23)
[2024-03-09] MEDS ORDERED: GLUCOSE 10 TAB/TUBE PO PRN (20:23)
[2024-03-09] MEDS ORDERED: GLUCAGON FOR INJ 1 MG VIAL SQ PRN (20:23)
[2024-03-09] MEDS ORDERED: DEXTROSE 50% 50 ML SYRINGE IV PRN (20:23)
[2024-03-09] MEDS ORDERED: GLUCOSE 40% GEL 15 GM TUBE PO PRN (20:23)
[2024-03-09] MEDS ORDERED: PHARMACY GLYCEMIC MGMT CONSULT PRN (20:23)
[2024-03-09] MEDS: DOXYCYCLINE HYCLATE 100 MG CAP PO SCH (21:14)
[2024-03-09] MEDS: GABAPENTIN 100 MG CAP PO SCH (21:14)
[2024-03-09] MEDS: guaiFENesin 600 MG TABCR PO SCH (21:14)
[2024-03-09] MEDS: cefTRIAXone SODIUM 2,000 MG/50 ML BAG IV SCH (21:15)
[2024-03-09] MEDS: INSULIN ASPART PER UNIT CHARGE SC SCH (21:16)
[2024-03-09] MEDS: LEVALBUTEROL 1.25 MG/3 ML NEB NEB SCH (21:20)
[2024-03-09] MEDS: APIXABAN 2.5 MG TAB PO SCH (21:26)
[2024-03-09] MEDS: BENZONATATE 100 MG CAPSULE PO ONE (21:57)
--- NOTE | 2024-03-09 23:40 | CT Scan Report ---
Exam(s): CT CHEST Without Contrast EXAM: CT Chest Without Intravenous Contrast CLINICAL HISTORY: Reason for exam: hypoxia, chf, r/o pneumonia. TECHNIQUE: Axial computed tomography images of the chest without intravenous contrast. CTDI is 40.1 mGy and DLP is 1199.68 mGy-cm. Automated exposure control was utilized for the study. A dose lowering technique was utilized adhering to the principles of ALARA. COMPARISON: Chest CT 11/01/2019 FINDINGS: Lungs: There is diffuse interstitial thickening with areas of groundglass, mosaic attenuation, and subpleural reticulation. Calcified nodules in the right hilum consistent with sequela of past granulomatous disease. Pleural space: No pleural effusion or pneumothorax. Heart: Cardiomegaly. Moderate CAD. Multiple pacemaker leads in place. Mediastinum: Mildly prominent mediastinal lymph nodes. Subcarinal node measures 1.5 cm (series 2 image 22). Paratracheal lymph node measures 1.3 cm (series 2 image 9). Bones/joints: No acute findings. Soft tissues: Unremarkable. Vasculature: Unremarkable. IMPRESSION: 1. There is diffuse interstitial thickening with areas of groundglass, mosaic attenuation, and subpleural reticulation. Differential includes interstitial lung disease, hypersensitivity pneumonitis, and atypical infection. 2. Mild reactive appearing adenopathy. Electronically signed by: Thierno Stauffer MD 03/09/24 23:39 PM
[2024-03-10] MEDS: traMADol HCL 50 MG TABLET PO PRN (01:51)
[2024-03-10] MEDS: BENZONATATE 100 MG CAPSULE PO PRN (04:40)
[2024-03-10 06:29] LABS: Basophils # (auto) 0.09 K/uL (0.00-0.20); Eosinophils # (auto) 0.84 K/uL (0.00-0.50); Hemoglobin 10.3 g/dl (12.0-16.0); Immature Granulocytes # (auto) 0.02 K/uL (0.01-0.20); Immature Granulocytes % (auto) 0.2 %; Lymphocytes # (auto) 0.99 K/uL (1.20-3.40); Lymphocytes % (auto) 10.6 %; Mean Corpuscular Hemoglobin 28.5 pg (25.0-34.0); Mean Corpuscular Hgb Conc 31.2 g/dL (32.0-36.0); Mean Corpuscular Volume 91.4 fL (80.0-100.0); Mean Platelet Volume 9.8 fL (9.4-12.4); Monocytes # (auto) 0.89 K/uL (0.11-0.59); Monocytes % (auto) 9.5 %; Neutrophils # (auto) 6.53 K/uL (1.40-6.50); Neutrophils % (auto) 69.7 %; Platelet Count 198 K/uL (130-400); RDW Coefficient of Variation 16.3 % (11.5-14.5); Red Blood Count 3.61 M/uL (4.20-5.40); White Blood Count 9.36 K/ul (4.8-10.8)
[2024-03-10 06:46] LABS: BUN Creatinine Ratio 16.4 (10-20); Calcium 9.2 mg/dl (8.6-10.3); Creatinine Clr Calc Pharmacy 31.5 ml/min; Est GFR (African American) 30.1 ml/min; Potassium 4.9 mmol/L (3.5-5.1)
[2024-03-10] MEDS: SODIUM CHLOR 7% 4 ML NEB NEB SCH (06:46)
[2024-03-10 07:29] LABS: Estimated Average Glucose 203 mg/dl; Hemoglobin A1C 8.7 % (4.5-5.6)
--- NOTE | 2024-03-10 08:42 | Hospitalist Progress Note ---
Date of Service March 10, 2024 Assessment & Plan (1) Acute and chronic respiratory failure, unspecified whether with hypoxia or hypercapnia: (2) CHF exacerbation: Plan: 78-year-old female with PMHx significant for complete heart block s/p pacemaker placement, nonischemic cardiomyopathy, CAD status post stent placement, CHF systolic and diastolic type, paroxysmal atrial fibrillation on Eliquis, peripheral vascular disease, chronic hypoxic respiratory failure on 3 L of oxygen, asthma, obstructive sleep apnea, diabetes type 2, hypertension, dyslipidemia, CKD stage IV, Hx of DVT who presents with progressive shortness of breath x 1 week. Acute exacerbation of congestive heart failure, combined systolic and diastolic type Usually takes torsemide 40 mg daily along with Toprol-XL and losartan 25 mg daily CXR: Interval progression of the diffuse interstitial/vascular thickening and patchy airspace opacities. This suggests worsening pulmonary edema. A superimposed pneumonia would be difficult to exclude. Lasix 40 mg IV given, continue with it daily Echocardiogram ordered Cardiology, nephrology service was consulted, appreciate rrecs Rule out pneumonia, asthma exacerbation Chest xray suggestive of a superimposed pneumonia CT chest notes possible atypical infection vs. interstitial lung disease vs. hypersensitivity pneumonitis BioFire negative Urine Legionella antigen: Pending Start empiric IV P.o.ceftriaxone plus doxycycline Xopenex 3 times daily, hypertonic saline twice daily Incentive spirometer, flutter valve, Mucinex twice daily Chronic hypoxic respiratory failure Remains on 3 L of oxygen via nasal cannula, which is her baseline Monitor closely Coronary artery disease, status post stent placement Troponin 36, 42, 35, essentially flat No cardiac symptoms at this point EKG no signs of acute ischemia or infarct Echocardiogram ordered Continue usual Plavix, rosuvastatin, Toprol-XL, losartan Doubt ACS Complete heart block status post pacemaker Denies palpitations, syncope or presyncope Has pacemaker Paroxysmal atrial fibrillation Continue metoprolol XL 50 mg daily, Eliquis 5 mg p.o. twice daily Peripheral vascular disease Continue Plavix, rosuvastatin, Eliquis CKD stage IV At baseline Will consult nephrology service for assistance with diuretic management Diabetes type 2, not currently controlled Hgba1c of 8.7, not currently controlled/at goal On glargine and NovoLog at home Glycemic control service consulted Hypertension Continue metoprolol, losartan History of DVT On Eliquis Chronic anemia Hgb of 11.5 to 10.3 Diet: DMII, HH, low sodium, FR DVT prophylaxis: on Eliquis Dispo: PT/OT ordered for further recs Admission and Anticipated Discharge Date Admission Date: March 09, 2024 Subjective pt was seen sitting up in bed. States she has had a chronic bothersome cough. occasional need for increased oxygen requirement she states but currently at baseline Review of Systems Review of Systems: All systems reviewed & are unremarkable except as noted in Subjective Physical Exam Physical Exam: General: Alert, oriented. No acute distress Skin: No noted rashes or bruises Psych: Appropriate mood and affect Neuro: difficulty with movements in the bed HEENT: NC/AT CV: heart sounds decreased due to habitus, RRR Resp: Breath sounds decreased bilaterally, no increased effort of breathing Abdomen: Soft, nontender Extremities: edema in lower extremities bilaterally. Results & Data Results & Data Vital Signs (Past 12 Hours) Vital Signs Temp Pulse Pulse Resp BP Pulse Ox O2 Del Method 03/10/24 07:56 36.9 C 69 20 151/64 H 92 Room Air 03/10/24 07:00 78 03/10/24 06:55 66 20 96 Nasal Cannula 03/10/24 03:00 36.8 C 68 21 156/77 H 97 Nasal Cannula 03/10/24 01:33 65 19 98 Nasal Cannula 03/09/24 23:28 85 03/09/24 22:45 36.6 C 52 L 22 164/60 H 99 Nasal Cannula 03/09/24 21:21 52 L 18 96 Nasal Cannula O2 Flow Rate 03/10/24 07:56 03/10/24 07:00 03/10/24 06:55 4 03/10/24 03:00 3 03/10/24 01:33 4 03/09/24 23:28 03/09/24 22:45 3 03/09/24 21:21 4 (1) Acute and chronic respiratory failure, unspecified whether with hypoxia or hypercapnia Respiratory failure complication: unspecified whether with hypoxia or hypercapnia Qualified Code(s): J96.20 - Acute and chronic respiratory failure, unspecified whether with hypoxia or hypercapnia (2) CHF exacerbation Heart failure type: unspecified Qualified Code(s): I50.9 - Heart failure, unspecified
[2024-03-10] MEDS: LANTUS PER UNIT CHARGE SC SCH ×2 (09:13→20:44)
[2024-03-10] MEDS: METOPROLOL SUCC 50MG EXT REL TAB PO SCH (09:15)
[2024-03-10] MEDS: CLOPIDOGREL BISULFATE 75 MG TAB PO SCH (09:15)
[2024-03-10] MEDS: FUROSEMIDE 40 MG/4 ML VIAL IV SCH (09:15)
[2024-03-10] MEDS: MONTELUKAST SODIUM 10 MG TABLET PO SCH (09:15)
[2024-03-10] MEDS: LORATADINE 10 MG TAB PO SCH (09:15)
[2024-03-10] MEDS: ROSUVASTATIN CALCIUM 20 MG TAB PO SCH (09:15)
[2024-03-10] MEDS: LOSARTAN POTASSIUM 25 MG TAB PO SCH (09:15)
--- NOTE | 2024-03-10 10:00 | Nephrology Consultation ---
Date of Consultation March 10, 2024 Assessment & Plan (1) Acute and chronic respiratory failure, unspecified whether with hypoxia or hypercapnia: Primary reason and appears both Pulmonary and cardiac. However she does not appear in much distress. On same o2 as home. At home takes torsemide 40 daily. Currently on lasix 40 iv daily. but can raise it to 40 iv bid. also Abx for multifocal pneumonia (2) Acute kidney injury superimposed on chronic kidney disease: Plan hard to pinpoint baseline creat but maybe slightly higher than her baseline. 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 Continue Lasix. raise dose to 40 bid. daily labs I and O charting. Can continue Losartan. urine appears active. But nothing to suggest GN of any type. total time spent 62 mins History of Present Illness Reason for Consultation: ELOY with CKD /Diuretics guidance Attending Physician: Kristy Hughes MD History of Present Illness 78/F with pre-existing CKD 3-4 fluctuating baseline creatinine most recently was 1.8 , chronic hypoxic respiratory failure on 3 L of oxygen, asthma, obstructive sleep apnea, coronary disease, status post stent, CHF systolic and diastolic type, paroxysmal atrial fibrillation on Eliquis, peripheral vascular disease, diabetes type 2, hypertension, dyslipidemia, CKD stage IV, DVT, peripheral vascular disease, presenting for progressive shortness of breath x 1 week. Patient reports Shortness of breath of many months but seems to have worsened f or the past 1 to 2 weeks. She is also experiencing cough mostly clear but occ productive of yellow, occasionally brown sputum, but no fevers or chills, chest pain. In the ER, noted to be saturating 100% on 3 L of oxygen. Chest x-ray showing pulmonary edema versus pneumonia. CT chest showed ---diffuse interstitial thickening with areas of ground glass, mosaic attenuation, and subpleural reticulation. Mild reactive appearing adenopathy. Currently on 3 liters o2. Creat is at baseline around 1.7--1.8 Bio fire negative ROS----as in HPI. otherwise 12 systems reviewed and negative Physical Exam Physical Exam: General- oriented x 3, not in distress, Normal speech . No resp Distress Neck- no JVD. Supple Lungs- Mild crackles bilateral bases, no wheezing, good air entry bilaterally Heart- normal rate, regular rhythm; no murmurs Abdomen- normal bowel sounds, nondistended, soft, nontender. Obese Extremities-1+ bilateral lower extremity edema, Neuro- alert, oriented x 3; no gross focal neurologic deficits Skin- warm & dry Allergies Allergy/AdvReac Type Severity Reaction Status Date / Time fluticasone Allergy Severe WATER ON Verified 03/09/24 18:38 LUNGS, SHORT OF BREATH mold Allergy Severe BLACK Verified 03/09/24 18:38 MOLD--SEE COMMENT salmeterol Allergy Severe WATER ON Verified 03/09/24 18:38 LUNGS, SHORT OF BREATH benzocaine Allergy Unknown Unknown Verified 03/09/24 18:38 Corticosteroids Allergy Anaphylaxis Verified 03/09/24 18:38 (Glucocorticoids) hydrocodone [From Vicodin] AdvReac Intermediate hallucinati Verified 03/09/24 18:38 ons oxycodone AdvReac Intermediate Hallucinati Verified 03/09/24 18:38 ng prednisone AdvReac Intermediate HYPERGLYCEM Verified 03/09/24 18:38 IA propoxyphene AdvReac Intermediate DARVOCET--INSOMNIA, Verified 03/09/24 18:38 EXCESSIVE DRY MOUTH VINYL COVERING Allergy Intermediate Rash Uncoded 03/09/24 18:38 Home Medications Medication Instructions Recorded Confirmed Type clopidogrel 75 mg tablet 75 mg PO QAM 10/01/19 03/09/24 History loratadine 10 mg tablet 10 mg PO QAM 10/01/19 03/09/24 History montelukast 10 mg tablet 10 mg PO QAM 10/01/19 03/09/24 History insulin aspart U-100 100 unit/mL 0 unit subcut TIDM 09/22/21 03/09/24 History (3 mL) subcutaneous pen (Novolog FlexPen U-100 Insulin aspart) rosuvastatin 40 mg tablet 40 mg PO QAM 09/22/21 03/09/24 History albuterol sulfate 2.5 mg/3 mL 2.5 mg inhalation Q4 PRN Wheezing 03/20/22 03/09/24 History (0.083 %) solution for nebulization insulin glargine 100 unit/mL (3 0 unit subcut AMHS 03/20/22 03/09/24 History mL) subcutaneous pen (Lantus Solostar U-100 Insulin) tramadol 50 mg tablet 50 mg PO Q6H PRN severe pain 03/31/22 03/09/24 Rx (scale score 7-10) #25 tabs gabapentin 100 mg capsule 200 mg PO TID 12/12/22 03/09/24 History losartan 25 mg tablet 25 mg PO QAM 12/12/22 03/09/24 History magnesium oxide 400 mg PO QAM 12/12/22 03/09/24 History multivitamin 1 tab PO QAM 12/12/22 03/09/24 History apixaban 5 mg tablet (Eliquis) 5 mg PO BID 10/28/23 03/09/24 History benzonatate 100 mg capsule 100 mg PO TID PRN Cough 10/28/23 03/09/24 History zolpidem 5 mg tablet (Ambien) 5 mg PO HS PRN Sleep 10/28/23 03/09/24 History Prevagen 1 cap PO QAM 12/08/23 03/09/24 History cyanocobalamin (vitamin B-12) 2,000 mcg PO QAM 12/08/23 03/09/24 History 2,000 mcg tablet,extended release (Vitamin B-12 ER) diphenoxylate-atropine 2.5 2 tab PO Q6H PRN Diarrhea 12/08/23 03/09/24 History mg-0.025 mg tablet (Lomotil) polyethylene glycol 3350 17 17 g PO DAILY PRN Constipation 12/08/23 03/09/24 History gram/dose oral powder (Miralax) potassium gluconate 550 mg (90 mg) 550 mg PO QAM 12/08/23 03/09/24 History tablet sennosides 8.6 mg-docusate sodium 1 tab-cap PO QAM PRN Constipation 12/08/23 03/09/24 History 50 mg tablet (Senna-S) metoprolol succinate 50 mg 50 mg PO QAM 03/09/24 03/09/24 History tablet,extended release 24 hr torsemide 20 mg tablet 40 mg PO QAM 03/09/24 03/09/24 History Patient History Medical History Nausea & vomiting Granulomatous interstitial lung disease Physical deconditioning Surgical History History of total knee arthroplasty 2005; bilateral History of cardiac cath 2014 - normal coronary arteries; Dr Jorgensen at [facility] [place] History of revascularization procedure of lower extremity fem/pop artery revascularization RLE; 09/2017; Dr Gill at [facility] [place] Family History Mother Leukemia Son Asthma Brother Stroke Social History Smoking Status: Never smoker Second Hand Exposure: No; Do You Dip or Chew Tobacco: No; Hx Alcohol Use: No Hx Substance Use: No Preferred Language: Yoruba Communication Ability: Effective Academic Affairs Manager Required: No Beliefs That Will Affect Care: None marital status: Current Living Situation: Spouse Current Living Situation Comment: In a 2 story house with Feels Safe at Home: Yes Safety Concerns: Feels Safe At This Time Assistive Devices: Denture - Upper, Denture - Lower, Glasses, Walker and Wheelchair Assistive Devices Comment: dentures and glasses at bedside Results & Data Vital Signs (Past 12 Hours) Vital Signs Temp Pulse Pulse Resp BP Pulse Ox O2 Del Method 03/10/24 07:56 36.9 C 69 20 151/64 H 92 Nasal Cannula 03/10/24 07:00 78 03/10/24 06:55 66 20 96 Nasal Cannula 03/10/24 03:00 36.8 C 68 21 156/77 H 97 Nasal Cannula 03/10/24 01:33 65 19 98 Nasal Cannula 03/09/24 23:28 85 03/09/24 22:45 36.6 C 52 L 22 164/60 H 99 Nasal Cannula O2 Flow Rate 03/10/24 07:56 3.0 03/10/24 07:00 03/10/24 06:55 4 03/10/24 03:00 3 03/10/24 01:33 4 03/09/24 23:28 03/09/24 22:45 3 Laboratory Results Reviewed in detail CBC chest x-ray and CT chest. Also UA Baseline creat 1.8 and current creat same. (1) Acute and chronic respiratory failure, unspecified whether with hypoxia or hypercapnia Respiratory failure complication: unspecified whether with hypoxia or hypercapnia Qualified Code(s): J96.20 - Acute and chronic respiratory failure, unspecified whether with hypoxia or hypercapnia
[2024-03-10] MEDS: POTASSIUM CHLORIDE 10 MEQ TABCR PO SCH (11:22)
[2024-03-10] MEDS: POTASSIUM CITRATE 10 MEQ TAB PO SCH (11:22)
--- NOTE | 2024-03-10 12:30 | Cardiology Consultation ---
Date of Consultation March 10, 2024 Assessment & Plan (1) 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): (2) Paroxysmal atrial fibrillation: (3) Dyslipidemia: (4) HTN (hypertension): (5) ISAIAS (obstructive sleep apnea): Plan 78-year-old female who presented with shortness of breath and cough x 1 week. Admitted with acute on chronic heart failure. - Appears hypervolemic on exam today, on baseline oxygen of 3L - Responding to IV diuresis, nephrology consulted, appreciate recs, diuretics per nephrology - Strict I/Os, monitor daily weights with standing scale if able - echo read pending - Continue Eliquis, Plavix, metoprolol, losartan, rosuvastatin - will need close cardiac follow up as outpatient Case discussed with supervising physician, further recommendations per Dr. Peters. I spent a total of 35 minutes on the date of service in preparation, delivery, and documentation of the care provided to this patient excluding any time spent in the performance of separately billed services. This visit was a split-shared visit with the substantial portion of the decision making performed by the supervising per diem physical therapist assistant/billing provider. Supervising Physician Co-Signing Physician Notes I have personally performed a history and physical examination on the patient. I have reviewed the advance practitioner's documentation, and I agree with, and take responsibility for the plan of care. I spent a total of 40 minutes on the date of service in preparation, delivery, and documentation of the care provided to this patient, excluding any time spent in the performance of separately billed services. 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 Patient was started on IV diuresis and responding well. Etiology most likely poor dietary compliance to CHF diet. Echocardiogram pending when images are available for review. Continue diuresis. History of Present Illness Reason for Consultation: CHF exacerbation Requesting Physician: Dr. Randy Shaver Attending Physician: Kristy Hughes MD History of Present Illness 78-year-old female with past medical history of chronic hypoxic respiratory failure on 3 L of oxygen, systolic and diastolic HF, ISAIAS, CAD s/p stent, paroxysmal A-fib, PVD, diabetes, HTN, dyslipidemia, CKD, DVT, presents to ED with shortness of breath and cough x1 week. Troponin mildly elevated but flat. EKG with no acute ischemic changes. Started on IV diuresis for acute on chronic heart failure. On evaluation today she is resting comfortably in bed. Denies shortness of breath, chest pain, lightheadedness, dizziness. Edema improving. Good urine output. On baseline 3 L O2. States she has been experiencing weight gain, shortness of breath since September, previously was only wearing nocturnal oxygen. Follows with outpatient [facility] cardiology clinic. Has been compliant with all medications at home. Allergies Allergy/AdvReac Type Severity Reaction Status Date / Time fluticasone Allergy Severe WATER ON Verified 03/09/24 18:38 LUNGS, SHORT OF BREATH mold Allergy Severe BLACK Verified 03/09/24 18:38 MOLD--SEE COMMENT salmeterol Allergy Severe WATER ON Verified 03/09/24 18:38 LUNGS, SHORT OF BREATH benzocaine Allergy Unknown Unknown Verified 03/09/24 18:38 Corticosteroids Allergy Anaphylaxis Verified 03/09/24 18:38 (Glucocorticoids) hydrocodone [From Vicodin] AdvReac Intermediate hallucinati Verified 03/09/24 18:38 ons oxycodone AdvReac Intermediate Hallucinati Verified 03/09/24 18:38 ng prednisone AdvReac Intermediate HYPERGLYCEM Verified 03/09/24 18:38 IA propoxyphene AdvReac Intermediate DARVOCET--INSOMNIA, Verified 03/09/24 18:38 EXCESSIVE DRY MOUTH VINYL COVERING Allergy Intermediate Rash Uncoded 03/09/24 18:38 Home Medications Medication Instructions Recorded Confirmed Type clopidogrel 75 mg tablet 75 mg PO QAM 10/01/19 03/09/24 History loratadine 10 mg tablet 10 mg PO QAM 10/01/19 03/09/24 History montelukast 10 mg tablet 10 mg PO QAM 10/01/19 03/09/24 History insulin aspart U-100 100 unit/mL 0 unit subcut TIDM 09/22/21 03/09/24 History (3 mL) subcutaneous pen (Novolog FlexPen U-100 Insulin aspart) rosuvastatin 40 mg tablet 40 mg PO QAM 09/22/21 03/09/24 History albuterol sulfate 2.5 mg/3 mL 2.5 mg inhalation Q4 PRN Wheezing 03/20/22 03/09/24 History (0.083 %) solution for nebulization insulin glargine 100 unit/mL (3 0 unit subcut AMHS 03/20/22 03/09/24 History mL) subcutaneous pen (Lantus Solostar U-100 Insulin) tramadol 50 mg tablet 50 mg PO Q6H PRN severe pain 03/31/22 03/09/24 Rx (scale score 7-10) #25 tabs gabapentin 100 mg capsule 200 mg PO TID 12/12/22 03/09/24 History losartan 25 mg tablet 25 mg PO QAM 12/12/22 03/09/24 History magnesium oxide 400 mg PO QAM 12/12/22 03/09/24 History multivitamin 1 tab PO QAM 12/12/22 03/09/24 History apixaban 5 mg tablet (Eliquis) 5 mg PO BID 10/28/23 03/09/24 History benzonatate 100 mg capsule 100 mg PO TID PRN Cough 10/28/23 03/09/24 History zolpidem 5 mg tablet (Ambien) 5 mg PO HS PRN Sleep 10/28/23 03/09/24 History Prevagen 1 cap PO QAM 12/08/23 03/09/24 History cyanocobalamin (vitamin B-12) 2,000 mcg PO QAM 12/08/23 03/09/24 History 2,000 mcg tablet,extended release (Vitamin B-12 ER) diphenoxylate-atropine 2.5 2 tab PO Q6H PRN Diarrhea 12/08/23 03/09/24 History mg-0.025 mg tablet (Lomotil) polyethylene glycol 3350 17 17 g PO DAILY PRN Constipation 12/08/23 03/09/24 History gram/dose oral powder (Miralax) potassium gluconate 550 mg (90 mg) 550 mg PO QAM 12/08/23 03/09/24 History tablet sennosides 8.6 mg-docusate sodium 1 tab-cap PO QAM PRN Constipation 12/08/23 03/09/24 History 50 mg tablet (Senna-S) metoprolol succinate 50 mg 50 mg PO QAM 03/09/24 03/09/24 History tablet,extended release 24 hr torsemide 20 mg tablet 40 mg PO QAM 03/09/24 03/09/24 History Patient History Medical History Nausea & vomiting Granulomatous interstitial lung disease Physical deconditioning Surgical History History of total knee arthroplasty 2005; bilateral History of cardiac cath 2014 - normal coronary arteries; [place]org[place] [facility] [place] of revascularization procedure of lower extremity fem/pop artery revascularization RLE; 09/2017; Dr Gill [place] [facility] [place] Family History Mother Leukemia Son Asthma Brother Stroke Social History Smoking Status: Never smoker Second Hand Exposure: No; Do You Dip or Chew Tobacco: No; Hx Alcohol Use: No Hx Substance Use: No Preferred Language: Danish Communication Ability: Effective Water Systems Engineer Required: No Beliefs That Will Affect Care: None marital status: Current Living Situation: Spouse Current Living Situation Comment: In a 2 story house with Feels Safe at Home: Yes Safety Concerns: Feels Safe At This Time Assistive Devices: Denture - Upper, Denture - Lower, Glasses, Walker and Wheelchair Assistive Devices Comment: dentures and glasses at bedside Review of Systems Review of Systems: CONSTITUTIONAL: No change in weight, No weakness, No fatigue and No fevers, No sweats or chills. PULMONARY: No cough, sputum, or hemoptysis, No wheezing, + shortness of breath and No recent change in breathing. CARDIOVASCULAR: No chest pain, No dyspnea on exertion, + edema, No palpitations and No syncope. GASTROINTESTINAL: No abdominal pain, No change in bowel habits, No significant heartburn, No nausea, No vomiting, No diarrhea, No constipation, No blood in stools or black tarry stools. No dysphagia. HEMATOLOGIC: No abnormal bleeding and No bruising. NEUROLOGICAL: Normal balance, No headaches and No weakness. Physical Exam Physical Exam: General: No acute distress. A+Ox3. HEENT: Normocephalic. Atraumatic. PERRL. EOMI. Conjunctiva and sclera clear. NECK: No carotid bruits. No JVD. Carotid upstrokes are brisk. Heart: RRR. S1 and S2 noted. No murmur. No rubs or gallops. PMI non displaced. Lungs: Clear to auscultation. No wheezes. No rhonchi. No rales. Abdomen: Normal bowel sounds. Soft. Nontender. No masses or organomegaly. No abdominal bruits. Obese. Extremities: 1+ bilateral LE edema. No clubbing or cyanosis. Pulses: radial=2/4, posterior tibial=2/4, dorsalis pedis = 2/4. NEURO: No focal deficits. PSYCH: Appropriate affect and insight. Results & Data Vital Signs (Past 12 Hours) Vital Signs Temp Pulse Pulse Resp BP Pulse Ox O2 Del Method 03/10/24 11:42 36.9 C 62 18 149/68 H 93 Nasal Cannula 03/10/24 07:56 36.9 C 69 20 151/64 H 92 Nasal Cannula 03/10/24 07:00 78 03/10/24 06:55 66 20 96 Nasal Cannula 03/10/24 03:00 36.8 C 68 21 156/77 H 97 Nasal Cannula 03/10/24 01:33 65 19 98 Nasal Cannula O2 Flow Rate 03/10/24 11:42 3.0 03/10/24 07:56 3.0 03/10/24 07:00 03/10/24 06:55 4 03/10/24 03:00 3 03/10/24 01:33 4 Laboratory Results Cardiac Enzymes 03/09/24 03/09/24 03/09/24 Range/Units 14:20 16:16 20:46 AST TNP 22 Troponin I High Sens 36.4 H 42.2 H 35.8 H (0-14) pg/ml CBC 03/09/24 03/10/24 Range/Units 14:20 05:45 WBC 10.06 9.36 (4.8-10.8) K/ul RBC 4.03 L 3.61 L (4.20-5.40) M/uL Hgb 11.5 L 10.3 L (12.0-16.0) g/dl Hct 36.8 L 33.0 L (37.0-47.0) % Plt Count 208 198 (130-400) K/uL Neut # (Auto) 7.69 H 6.53 H (1.40-6.50) K/uL Lymph # (Auto) 0.88 L 0.99 L (1.20-3.40) K/uL [place] # (Auto) 0.73 H 0.89 H (0.11-0.59) K/uL Eos # (Auto) 0.65 H 0.84 H (0.00-0.50) K/uL Baso # (Auto) 0.07 0.09 (0.00-0.20) K/uL Comprehensive Metabolic Panel 03/09/24 03/09/24 03/10/24 Range/Units 14:20 16:16 05:45 Sodium TNP 137 136 Potassium TNP 4.9 4.9 Chloride 97 L 97 L (98-107) mmol/L Carbon Dioxide 32 35 H (21-32) mmol/L BUN 26 H 30 H (6-23) mg/dl Creatinine 1.76 H 1.83 H (0.6-1.2) mg/dl Glucose 180 H 183 H (70-99(Fasting)) mg/dl Calcium 9.8 9.2 (8.6-10.3) mg/dl AST TNP 22 ALT 11 (7-52) U/L Alkaline Phosphatase 69 (34-104) U/L Total Protein 8.0 (6.0-8.3) gm/dl Albumin 3.4 (3.4-5.0) gm/dl Intake and Output 03/09/24 03/10/24 03/10/24 22:59 06:59 14:59 Intake Total 290 / 290 Output Total 400 / 1100 700 / 1100 Balance -110 / -810 -700 / -810 Intake: IV 50 / 50 cefTRIAXone SODIUM 2,000 mg In 50 / 50 50 ml @ 100 mls/hr IV Q24H COUNT INCLUDES THE [facility] Rx#:[id number] Oral 240 / 240 Output: Urine Amount (Catheter) 400 / 1100 700 / 1100 External 400 / 1100 700 / 1100 Other: Weight 121.1 kg 121.9 kg Weight Measurement Method [facility] in [facility] Built in [facility] (4) HTN (hypertension) Hypertension type: unspecified Qualified Code(s): I10 - Essential (primary) hypertension
--- NOTE | 2024-03-10 15:21 | Pharmacy Report ---
Pharmacy Glycemic Short Note 2 - Date of Service March 10, 2024 - Glycemic Short BSG Results (Last 24 hours): 03/09/24 03/09/24 03/10/24 14:20 20:41 05:45 Glucose 180 H 183 H POC Glucose 117 H 03/10/24 03/10/24 08:00 11:44 Glucose POC Glucose 174 H 166 H OUTPATIENT ANTIDIABETIC REGIMEN: * Lantus 22 units bid, novolog 18 units TIDM ASSESSMENT: * 78 year old admitted with CHF exacerbation. Pharmacy consulted for glycemic management. Fasting BSG 183 mg/dL this AM, will trial Lantus 10 units bid for now until PO intake known. PLAN FOR INPATIENT GLYCEMIC CONTROL: * Hold outpatient oral diabetes medications * Basal insulin * Lantus 10 units SQ BID * Bolus insulin * NovoLog per scale ACHS or Q6hrs while NPO * Goal Range: Low 110 mg/dL - High 140 mg/dL * Correction Factor: 20 mg/dL/unit * Nutritional / Prandial insulin per carb ratio of 1 unit per 7 grams CHO consumed
[2024-03-11 05:28] LABS: Basophils # (auto) 0.09 K/uL (0.00-0.20); Eosinophils # (auto) 1.04 K/uL (0.00-0.50); Eosinophils % (auto) 11.4 %; Hematocrit (blood only) 36.3 % (37.0-47.0); Immature Granulocytes # (auto) 0.02 K/uL (0.01-0.20); Immature Granulocytes % (auto) 0.2 %; Lymphocytes % (auto) 10.9 %; Mean Corpuscular Hemoglobin 28.6 pg (25.0-34.0); Mean Corpuscular Hgb Conc 30.3 g/dL (32.0-36.0); Mean Corpuscular Volume 94.5 fL (80.0-100.0); Monocytes # (auto) 1.01 K/uL (0.11-0.59); Neutrophils % (auto) 65.5 %; Platelet Count 197 K/uL (130-400); RDW Coefficient of Variation 16.4 % (11.5-14.5); RDW Standard Deviation 56.8 fL (36.4-46.3); Red Blood Count 3.84 M/uL (4.20-5.40); White Blood Count 9.16 K/ul (4.8-10.8)
[2024-03-11 05:41] LABS: BUN Creatinine Ratio 17.2 (10-20); Calcium 9.4 mg/dl (8.6-10.3); Creatinine Clr Calc Pharmacy 29.1 ml/min; Est GFR (African American) 27.4 ml/min; Est GFR (Non-African American) 23.6 ml/min; Magnesium 1.8 mg/dl (1.7-2.4); Phosphorus 5.7 mg/dl (2.5-4.9); Potassium 5.3 mmol/L (3.5-5.1)
--- NOTE | 2024-03-11 10:42 | Cardiology Progress Note ---
Date of Service March 11, 2024 Assessment & Plan (1) 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): (2) Paroxysmal atrial fibrillation: (3) Dyslipidemia: (4) HTN (hypertension): (5) ISAIAS (obstructive sleep apnea): Plan 78-year-old female who presented with shortness of breath and cough x 1 week. Admitted with acute on chronic heart failure. Symptoms likely due to medication noncompliance, possible dietary noncompliance. - Appears mildly hypervolemic on exam today, on baseline oxygen of 3L - Responding to IV diuresis, nephrology consulted, appreciate recs, diuretics per nephrology - Strict I/Os, monitor daily weights with standing scale if able - Continue Eliquis, Plavix, metoprolol, losartan, rosuvastatin - will need close cardiac follow up as outpatient Case discussed with supervising physician, further recommendations per Dr. Peters. I spent a total of 35 minutes on the date of service in preparation, delivery, and documentation of the care provided to this patient excluding any time spent in the performance of separately billed services. This visit was a split-shared visit with the substantial portion of the decision making performed by the supervising herb digger/billing provider. Admission and Anticipated Discharge Date Admission Date: March 09, 2024 Supervising Physician Co-Signing Physician Notes I have personally performed a history and physical examination on the patient. I have reviewed the advance practitioner's documentation, and I agree with, and take responsibility for the plan of care. I spent a total of 35 minutes on the date of service in preparation, delivery, and documentation of the care provided to this patient, excluding any time spent in the performance of separately billed services. Recommend increasing Lasix to 40 mg IV twice daily, Will titrate diuretics accordingly to response. Subjective On evaluation today feels well. Believes edema is improving. Denies chest pain, palpitations, shortness of breath, lightheadedness. Notes at times that she forgets to take her medications including her diuretics. Does not drink a lot of fluids at home. Review of Systems Review of Systems: CONSTITUTIONAL: No change in weight, No weakness, No fatigue and No fevers, No sweats or chills. PULMONARY: No cough, sputum, or hemoptysis, No wheezing, No shortness of breath and No recent change in breathing. CARDIOVASCULAR: No chest pain, No dyspnea on exertion, + edema, No palpitations and No syncope. GASTROINTESTINAL: No abdominal pain, No change in bowel habits, No significant heartburn, No nausea, No vomiting, No diarrhea, No constipation, No blood in stools or black tarry stools. No dysphagia. HEMATOLOGIC: No abnormal bleeding and No bruising. NEUROLOGICAL: Normal balance, No headaches and No weakness. Physical Exam Physical Exam: General: No acute distress. A+Ox3. HEENT: Normocephalic. Atraumatic. PERRL. EOMI. Conjunctiva and sclera clear. NECK: No carotid bruits. No JVD. Carotid upstrokes are brisk. Heart: RRR. S1 and S2 noted. No murmur. No rubs or gallops. PMI non displaced. Lungs: Clear to auscultation. No wheezes. No rhonchi. No rales. Abdomen: Normal bowel sounds. Soft. Nontender. No masses or organomegaly. No abdominal bruits. Obese. Extremities: 1+ bilateral LE edema. No clubbing or cyanosis. Pulses: radial=2/4, posterior tibial=2/4, dorsalis pedis = 2/4. NEURO: No focal deficits. PSYCH: Appropriate affect and insight. Results & Data Vital Signs (Past 12 Hours) Vital Signs Temp Pulse Pulse Pulse Resp BP Pulse Ox 03/11/24 07:56 36.7 C 60 20 148/64 H 93 03/11/24 07:00 65 03/11/24 06:56 68 20 96 03/11/24 03:01 36.6 C 58 L 20 141/87 H 95 03/11/24 01:04 62 20 98 03/10/24 23:42 60 03/10/24 22:57 36.5 C 60 22 133/79 98 O2 Del Method O2 Flow Rate 03/11/24 07:56 Nasal Cannula 3.0 03/11/24 07:00 03/11/24 06:56 Nasal Cannula 4 03/11/24 03:01 Nasal Cannula 3 03/11/24 01:04 Nasal Cannula 4 03/10/24 23:42 03/10/24 22:57 Nasal Cannula 3 Laboratory Results CBC 03/11/24 Range/Units 04:27 WBC 9.16 (4.8-10.8) K/ul RBC 3.84 L (4.20-5.40) M/uL Hgb 11.0 L (12.0-16.0) g/dl Hct 36.3 L (37.0-47.0) % Plt Count 197 (130-400) K/uL Neut # (Auto) 6.00 (1.40-6.50) K/uL Lymph # (Auto) 1.00 L (1.20-3.40) K/uL [place] # (Auto) 1.01 H (0.11-0.59) K/uL Eos # (Auto) 1.04 H (0.00-0.50) K/uL Baso # (Auto) 0.09 (0.00-0.20) K/uL Comprehensive Metabolic Panel 03/11/24 Range/Units 04:27 Sodium 134 L (136-145) mmol/L Potassium 5.3 H (3.5-5.1) mmol/L Chloride 95 L (98-107) mmol/L Carbon Dioxide 35 H (21-32) mmol/L BUN 34 H (6-23) mg/dl Creatinine 1.98 H (0.6-1.2) mg/dl Glucose 133 H (70-99(Fasting)) mg/dl Calcium 9.4 (8.6-10.3) mg/dl Intake and Output 03/10/24 03/11/24 03/11/24 22:59 06:59 14:59 Intake Total 770 / 770 Output Total 200 / 500 300 / 500 Balance 570 / 270 -300 / 270 Intake: IV 50 / 50 cefTRIAXone SODIUM 2,000 mg In 50 / 50 50 ml @ 100 mls/hr IV Q24H [facility] Rx#:[id number] Oral 720 / 720 Output: Urine Amount (Catheter) 200 / 500 300 / 500 External 200 / 500 300 / 500 Other: # Unmeasured Voids 1 Weight 122.3 kg Weight Measurement Method Built in [facility] Diagnostic Findings Telemetry reviewed, paced vs underlying aflutter, 60s Echo with normal LVEF, severe pulmonary hypertension (4) HTN (hypertension) Hypertension type: unspecified Qualified Code(s): I10 - Essential (primary) hypertension
--- NOTE | 2024-03-11 11:31 | Nephrology Progress Note ---
Date of Service March 11, 2024 Assessment & Plan Admission and Anticipated Discharge Date Admission Date: March 09, 2024 Subjective Assessment & Plan (1) Acute and chronic respiratory failure, unspecified whether with hypoxia or hypercapnia: Primary reason and appears both Pulmonary and cardiac. However she does not appear in much distress. On same o2 as home. At home takes torsemide 40 daily. Currently on lasix 40 iv bid. continue same also Abx for multifocal pneumonia (2) Acute kidney injury superimposed on chronic kidney disease: Slight rise from yesterday but this is acceptable. No need to lower diuretics dose yet. Plan hard to pinpoint baseline creat but maybe slightly higher than her baseline. 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 Continue Lasix 40 bid. daily labs I and O charting. Can continue Losartan. urine appears active. But nothing to suggest GN of any type. S--feels better today by about 25%. making urine ? amount. ROS----as in HPI. otherwise 12 systems reviewed and negative Results & Data Vital Signs (Past 12 Hours) Vital Signs Temp Pulse Pulse Pulse Resp BP Pulse Ox 03/11/24 07:56 36.7 C 60 20 148/64 H 93 03/11/24 07:00 65 03/11/24 06:56 68 20 96 03/11/24 03:01 36.6 C 58 L 20 141/87 H 95 03/11/24 01:04 62 20 98 03/10/24 23:42 60 O2 Del Method O2 Flow Rate 03/11/24 07:56 Nasal Cannula 3.0 03/11/24 07:00 03/11/24 06:56 Nasal Cannula 4 03/11/24 03:01 Nasal Cannula 3 03/11/24 01:04 Nasal Cannula 4 03/10/24 23:42
--- NOTE | 2024-03-11 12:40 | Pulmonary Consultation ---
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): (3) ILD (interstitial lung disease): (4) Abnormal chest CT: (5) Acute and chronic respiratory failure, unspecified whether with hypoxia or hypercapnia: Respiratory failure complication: unspecified whether with hypoxia or hypercapnia Qualified Code(s): J96.20 - Acute and chronic respiratory failure, unspecified whether with hypoxia or hypercapnia Plan CT chest 03/09/2024 personally reviewed: Diffuse mosaicism appreciated bilaterally especially in the lower lobes Increased reticular markings as well as traction bronchiectasis appreciated bilateral lower lobes more on the right side There seems to be a broncholith in the right lower lobe as well Cardiomegaly Calcified mediastinal and hilar lymph nodes 2D echo 03/10/2024: EF 50-55%, RV not well-visualized, PASP 66 mmHg, mild TR, mild MR --Acute hypoxic respiratory failure Multifactorial Respiratory bio fire negative for everything 03/09/2024 Nasal MRSA pending BNP Pending --Abnormal chest CT There seems to be increased reticular markings as well as traction bronchiectasis Underlying worsening ILD is a possibility. Patient also has calcified mediastinal and hilar lymph nodes with possible broncholith in the right lower lobe, they have not changed compared to CT chest 10/2019 -- A-fib On Eliquis --Morbid obesity Plan: Follow-up autoimmune workup BiPAP nightly and as needed shortness of breath O2 saturation to keep oxygen saturation between 90-92% Follow procalcitonin, follow BNP and abg Mucinex-DM [id number], follow sputum culture BiPAP/CPAP nightly and as needed shortness of breath Patient apparently states that she is allergic to steroids. On asking what happens she initially stated that she cannot breathe but then stated that she gets restless and her blood sugar goes up. I am not sure if she is truly allergic to corticosteroids Please note the above document was generated using voice recognition software. It may contain grammatical, syntax or spelling errors.Any formal questions or concerns about the content, text or information contained within the body of this dictation should be directly addressed to the provider for clarification. History of Present Illness Attending Physician: Kristy Hughes MD History of Present Illness 78-year-old female present to the hospital with complaints of shortness of breath Past medical history: HFpEF, s/p PPM, diabetes, dyslipidemia, morbid obesity Pulmonary consulted for abnormal chest CT Patient follows up with Dr. Parker, he saw the patient last on 11/19/2019 At the time of examination patient's was in the room. But she was saturating 97% on 3 days in the cannula. Not in any respiratory distress. Patient says that she has been having issues with her breathing for the last couple of months progressively getting worse. Denies any fever. Does complain of feeling cold all the time. Does complain of cough, has difficulty bringing up the phlegm. Occasionally has blood-streaked phlegm. Denies any dysuria but occasionally has diarrhea depending on what she eats. No hematuria, no hematochezia Denies any headache, no blurry vision No abdominal pain No personal or family history of any autoimmune disease like lupus, sarcoid, Sjogren's, rheumatoid Denies any Raynaud's. Social history: Lifetime non-smoker. Has a cat at home. No birds or poultry nearby Family history of asthma and son. Allergies Allergy/AdvReac Type Severity Reaction Status Date / Time fluticasone Allergy Severe WATER ON Verified 03/09/24 18:38 LUNGS, SHORT OF BREATH mold Allergy Severe BLACK Verified 03/09/24 18:38 MOLD--SEE COMMENT salmeterol Allergy Severe WATER ON Verified 03/09/24 18:38 LUNGS, SHORT OF BREATH benzocaine Allergy Unknown Unknown Verified 03/09/24 18:38 Corticosteroids Allergy Anaphylaxis Verified 03/09/24 18:38 (Glucocorticoids) hydrocodone [From Vicodin] AdvReac Intermediate hallucinati Verified 03/09/24 18:38 ons oxycodone AdvReac Intermediate Hallucinati Verified 03/09/24 18:38 ng prednisone AdvReac Intermediate HYPERGLYCEM Verified 03/09/24 18:38 IA propoxyphene AdvReac Intermediate DARVOCET--INSOMNIA, Verified 03/09/24 18:38 EXCESSIVE DRY MOUTH VINYL COVERING Allergy Intermediate Rash Uncoded 03/09/24 18:38 Home Medications Medication Instructions Recorded Confirmed Type clopidogrel 75 mg tablet 75 mg PO QAM 10/01/19 03/09/24 History loratadine 10 mg tablet 10 mg PO QAM 10/01/19 03/09/24 History montelukast 10 mg tablet 10 mg PO QAM 10/01/19 03/09/24 History insulin aspart U-100 100 unit/mL 0 unit subcut TIDM 09/22/21 03/09/24 History (3 mL) subcutaneous pen (Novolog FlexPen U-100 Insulin aspart) rosuvastatin 40 mg tablet 40 mg PO QAM 09/22/21 03/09/24 History albuterol sulfate 2.5 mg/3 mL 2.5 mg inhalation Q4 PRN Wheezing 03/20/22 03/09/24 History (0.083 %) solution for nebulization insulin glargine 100 unit/mL (3 0 unit subcut AMHS 03/20/22 03/09/24 History mL) subcutaneous pen (Lantus Solostar U-100 Insulin) tramadol 50 mg tablet 50 mg PO Q6H PRN severe pain 03/31/22 03/09/24 Rx (scale score 7-10) #25 tabs gabapentin 100 mg capsule 200 mg PO TID 12/12/22 03/09/24 History losartan 25 mg tablet 25 mg PO QAM 12/12/22 03/09/24 History magnesium oxide 400 mg PO QAM 12/12/22 03/09/24 History multivitamin 1 tab PO QAM 12/12/22 03/09/24 History apixaban 5 mg tablet (Eliquis) 5 mg PO BID 10/28/23 03/09/24 History benzonatate 100 mg capsule 100 mg PO TID PRN Cough 10/28/23 03/09/24 History zolpidem 5 mg tablet (Ambien) 5 mg PO HS PRN Sleep 10/28/23 03/09/24 History Prevagen 1 cap PO QAM 12/08/23 03/09/24 History cyanocobalamin (vitamin B-12) 2,000 mcg PO QAM 12/08/23 03/09/24 History 2,000 mcg tablet,extended release (Vitamin B-12 ER) diphenoxylate-atropine 2.5 2 tab PO Q6H PRN Diarrhea 12/08/23 03/09/24 History mg-0.025 mg tablet (Lomotil) polyethylene glycol 3350 17 17 g PO DAILY PRN Constipation 12/08/23 03/09/24 History gram/dose oral powder (Miralax) potassium gluconate 550 mg (90 mg) 550 mg PO QAM 12/08/23 03/09/24 History tablet sennosides 8.6 mg-docusate sodium 1 tab-cap PO QAM PRN Constipation 12/08/23 03/09/24 History 50 mg tablet (Senna-S) metoprolol succinate 50 mg 50 mg PO QAM 03/09/24 03/09/24 History tablet,extended release 24 hr torsemide 20 mg tablet 40 mg PO QAM 03/09/24 03/09/24 History Patient History Medical History Nausea & vomiting Granulomatous interstitial lung disease Physical deconditioning Surgical History History of total knee arthroplasty 2005; bilateral History of cardiac cath 2014 - normal coronary arteries; Dr Jorgensen at [facility] [place] History of revascularization procedure of lower extremity fem/pop artery revascularization RLE; 09/2017; Dr Gill at [facility] [place] Family History Mother Leukemia Son Asthma Brother Stroke Social History Smoking Status: Never smoker Second Hand Exposure: No; Do You Dip or Chew Tobacco: No; Hx Alcohol Use: No Hx Substance Use: No Preferred Language: Maori Communication Ability: Effective Catering Operations Manager Required: No Beliefs That Will Affect Care: None marital status: Current Living Situation: Spouse Current Living Situation Comment: In a 2 story house with Feels Safe at Home: Yes Safety Concerns: Feels Safe At This Time Assistive Devices: Denture - Upper, Denture - Lower, Glasses, Walker and Wheelchair Assistive Devices Comment: dentures and glasses at bedside Review of Systems 2 Review of Systems: All systems reviewed & are unremarkable except as noted in HPI & below Physical Exam 2 Physical Exam: Constitutional: No acute distress HEENT: EOMI, PERRLA Respiratory system: Decreased air entry bilaterally, minimal expiratory wheeze, no rhonchi, positive Velcro-like crackles bilaterally CVS: S1-S2 positive, no murmurs or gallops Abdomen: Soft, nontender, nondistended, positive bowel sounds x4 Extremities: +2 pulses bilaterally radialis/ dorsalis pedis, no cyanosis, +1 pitting edema bilaterally Neuro: Awake alert oriented x3 Psych: Normal mood and affect G/U: Positive Ch Skin: no rashes, warm and dry Lymphatic: no cervical or axillary lymphadenopathy Results & Data Results & Data Vital Signs (Past 12 Hours) Vital Signs Temp Pulse Pulse Pulse Resp BP Pulse Ox 03/11/24 07:56 36.7 C 60 20 148/64 H 93 03/11/24 07:00 65 03/11/24 06:56 68 20 96 03/11/24 03:01 36.6 C 58 L 20 141/87 H 95 03/11/24 01:04 62 20 98 O2 Del Method O2 Flow Rate 03/11/24 07:56 Nasal Cannula 3.0 03/11/24 07:00 03/11/24 06:56 Nasal Cannula 4 03/11/24 03:01 Nasal Cannula 3 03/11/24 01:04 Nasal Cannula 4 Laboratory Results 03/11/24 04:27 03/11/24 04:27 PG Care Time/CCT Total # of Minutes Spent Total Time Spent with Patient: Total time spent is greater than 50% in coordination of care (as documented) at patient's floor/unit and/or counseling patient: Coding Level of Care Code 50403 INT INP/OBS CARE 375MIN Diagnoses ISAIAS (obstructive sleep apnea) G47.33 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
--- NOTE | 2024-03-11 14:20 | Hospitalist Progress Note ---
Date of Service March 11, 2024 Assessment & Plan (1) Acute and chronic respiratory failure, unspecified whether with hypoxia or hypercapnia: (2) CHF exacerbation: Plan: 78-year-old female with PMHx significant for complete heart block s/p pacemaker placement, nonischemic cardiomyopathy, CAD status post stent placement, CHF systolic and diastolic type, paroxysmal atrial fibrillation on Eliquis, peripheral vascular disease, chronic hypoxic respiratory failure on 3 L of oxygen, asthma, obstructive sleep apnea, diabetes type 2, hypertension, dyslipidemia, CKD stage IV, Hx of DVT who presents with progressive shortness of breath x 1 week. Acute exacerbation of congestive heart failure, combined systolic and diastolic type Usually takes torsemide 40 mg daily along with Toprol-XL and losartan 25 mg daily CXR: Interval progression of the diffuse interstitial/vascular thickening and patchy airspace opacities. This suggests worsening pulmonary edema. A superimposed pneumonia would be difficult to exclude. Lasix 40 mg IV given, continue with it daily Echocardiogram ordered Cardiology, nephrology service was consulted, appreciate recs -IV Lasix BID Rule out pneumonia, asthma exacerbation Chest xray suggestive of a superimposed pneumonia CT chest notes possible atypical infection vs. interstitial lung disease vs. hypersensitivity pneumonitis BioFire negative Urine Legionella antigen: Pending Start empiric IV P.o.ceftriaxone plus doxycycline Xopenex 3 times daily, hypertonic saline twice daily Incentive spirometer, flutter valve, Mucinex twice daily Pulmonology consulted, appreciate recs Chronic hypoxic respiratory failure Remains on 3 L of oxygen via nasal cannula, which is her baseline Monitor closely Pulmonology consulted, appreciate recs Coronary artery disease, status post stent placement Troponin 36, 42, 35, essentially flat No cardiac symptoms at this point EKG no signs of acute ischemia or infarct Echocardiogram ordered Continue usual Plavix, rosuvastatin, Toprol-XL, losartan Doubt ACS Complete heart block status post pacemaker Denies palpitations, syncope or presyncope Has pacemaker Paroxysmal atrial fibrillation Continue metoprolol XL 50 mg daily, Eliquis 5 mg p.o. twice daily Peripheral vascular disease Continue Plavix, rosuvastatin, Eliquis CKD stage IV At baseline Will consult nephrology service for assistance with diuretic management Diabetes type 2, not currently controlled Hgba1c of 8.7, not currently controlled/at goal On glargine and NovoLog at home Glycemic control service consulted Hypertension Continue metoprolol, losartan History of DVT On Eliquis Chronic anemia Hgb of 11.5 to 10.3 Diet: DMII, HH, low sodium, FR DVT prophylaxis: on Eliqu Dispo: PT/OT ordered for further recs Admission and Anticipated Discharge Date Admission Date: March 09, 2024 Subjective pt was seen with at bedside. Notes she does not feel so great with her breathing. Still on baseline 3L of oxygen and saturating well. otherwise denies acute concerns Review of Systems Review of Systems: All systems reviewed & are unremarkable except as noted in Subjective Physical Exam Physical Exam: General: Alert, oriented. No acute distress Skin: No noted rashes or bruises Psych: Appropriate mood and affect Neuro: difficulty with movements in the bed HEENT: NC/AT CV: heart sounds decreased due to habitus, RRR Resp: Breath sounds decreased bilaterally with some wheezing, no increased effort of breathing Abdomen: Soft, nontender Extremities: edema in lower extremities bilaterally. Results & Data Results & Data Vital Signs (Past 12 Hours) Vital Signs Temp Pulse Pulse Pulse Resp BP Pulse Ox 03/11/24 14:08 66 22 96 03/11/24 12:14 36.9 C 60 22 151/69 H 95 03/11/24 07:56 36.7 C 60 20 148/64 H 93 03/11/24 07:00 65 03/11/24 06:56 68 20 96 03/11/24 03:01 36.6 C 58 L 20 141/87 H 95 O2 Del Method O2 Flow Rate 03/11/24 14:08 Nasal Cannula 4 03/11/24 12:14 Nasal Cannula 3.0 03/11/24 07:56 Nasal Cannula 3.0 03/11/24 07:00 03/11/24 06:56 Nasal Cannula 4 03/11/24 03:01 Nasal Cannula 3 (1) Acute and chronic respiratory failure, unspecified whether with hypoxia or h ypercapnia Respiratory failure complication: unspecified whether with hypoxia or hypercapnia Qualified Code(s): J96.20 - Acute and chronic respiratory failure, unspecified whether with hypoxia or hypercapnia (2) CHF exacerbation Heart failure type: unspecified Qualified Code(s): I50.9 - Heart failure, unspecified
[2024-03-11] MEDS: guaiFENesin/DEXTROM SYRUP 200MG/20MG 10ML UDC PO SCH (16:01)
[2024-03-11] MEDS: FUROSEMIDE 40 MG/4 ML VIAL IV SCH (16:02)
[2024-03-12 08:48] LABS: Basophils % (auto) 1.1 %; Eosinophils # (auto) 0.91 K/uL (0.00-0.50); Eosinophils % (auto) 9.6 %; Hematocrit (blood only) 35.4 % (37.0-47.0); Hemoglobin 10.8 g/dl (12.0-16.0); Immature Granulocytes # (auto) 0.02 K/uL (0.01-0.20); Immature Granulocytes % (auto) 0.2 %; Lymphocytes # (auto) 0.94 K/uL (1.20-3.40); Lymphocytes % (auto) 9.9 %; Mean Corpuscular Hemoglobin 28.3 pg (25.0-34.0); Mean Corpuscular Hgb Conc 30.5 g/dL (32.0-36.0); Mean Corpuscular Volume 92.7 fL (80.0-100.0); Mean Platelet Volume 9.9 fL (9.4-12.4); Monocytes # (auto) 0.95 K/uL (0.11-0.59); Neutrophils # (auto) 6.54 K/uL (1.40-6.50); Neutrophils % (auto) 69.2 %; Platelet Count 220 K/uL (130-400); RDW Coefficient of Variation 15.9 % (11.5-14.5); Red Blood Count 3.82 M/uL (4.20-5.40); White Blood Count 9.46 K/ul (4.8-10.8)
[2024-03-12 08:55] LABS: Allen Test Pos (Pos); Base Excess ABG 5.5 mEq/L (-9-1.8); HCO3 ABG 32 mmol/L (19-24); Oxygen Saturation ABG 95.1 % (90-95); PCO2 ABG 56 mmHg (35-46); PO2 ABG 71 mmHg (80-95); pH ABG 7.37 (7.35-7.45)
[2024-03-12 09:05] LABS: BUN Creatinine Ratio 19.8 (10-20); C Reactive Protein 6.11 mg/dl (0-0.5); Calcium 9.4 mg/dl (8.6-10.3); Creatinine Clr Calc Pharmacy 27.9 ml/min; Est GFR (African American) 25.9 ml/min; Est GFR (Non-African American) 22.4 ml/min; Magnesium 1.8 mg/dl (1.7-2.4); Phosphorus 4.8 mg/dl (2.5-4.9); Potassium 4.9 mmol/L (3.5-5.1)
--- NOTE | 2024-03-12 10:38 | Nephrology Progress Note ---
Date of Service March 12, 2024 Assessment & Plan (1) Acute and chronic respiratory failure, unspecified whether with hypoxia or hypercapnia: Plan: Primary reason and appears both Pulmonary and cardiac. However she does not appear in much distress. On same o2 as home. At home takes torsemide 40 daily. Continue lasix 40 iv bid (started/upped to this 03/11) also Abx for multifocal pneumonia (2) Acute kidney injury superimposed on chronic kidney disease: Plan: hard to pinpoint baseline creat but maybe slightly higher than her baseline. CKD 3-4 w/ fluctuating baseline, most recent OP value 1.8. Creat is mostly stable and most of it is CKD 3B to 4 anyway. -continue current lasix daily labs I and O charting. Can continue Losartan for now but may need to hold -urocit on hold since 03/10 given borderline high k - continue urine appears active. But nothing to suggest GN of any type. Admission and Anticipated Discharge Date Admission Date: March 09, 2024 Subjective c/o L shoulder pain since last evening and unable to maneuver for exam d/t this. no sob, no n/v. Review of Systems 2 Review of Systems: All systems reviewed & are unremarkable except as noted in Subjective Physical Exam 2 Constitutional: well developed, well nourished and + morbidly obese; no acute distress Eyes: EOM intact bilaterally ENMT: Ears: no external ear abnormality Nose: no external nose abnormality Mouth: + dry oral mucous membranes Neck: no nuchal rigidity Respiratory: normal respiratory effort Auscultation: + diminished lung sounds (anterior exam) Cardiovascular: Rate/Rhythm: regular rate and regular rhythm Extremities: n o edema Gastrointestinal (Abdomen): Inspection/Auscultation: normal bowel sounds P ercussion/Palpation: abdomen soft; abdomen nontender Musculoskeletal: Extremities: strength 5/5 throughout Skin: no rashes, warm and dry Neurologic: alvarez, fluent speech, no tremor Psychiatric: Orientation: alert and oriented x 3 Results & Data Vital Signs (Past 12 Hours) Vital Signs Temp Pulse Pulse Resp BP Pulse Ox O2 Del Method 03/12/24 07:30 64 03/12/24 07:20 36.4 C L 57 L 20 101/64 92 Nasal Cannula 03/12/24 06:56 80 18 94 Nasal Cannula 03/12/24 03:14 36.6 C 62 20 137/77 98 Nasal Cannula 03/11/24 23:58 70 18 96 Nasal Cannula 03/11/24 22:55 36.6 C 63 16 125/85 93 Nasal Cannula O2 Flow Rate 03/12/24 07:30 03/12/24 07:20 3 03/12/24 06:56 3 03/12/24 03:14 3 03/11/24 23:58 4 03/11/24 22:55 3 Laboratory Results 03/12/24 08:23 03/12/24 08:23 (1) Acute and chronic respiratory failure, unspecified whether with hypoxia or hypercapnia Respiratory failure complication: unspecified whether with hypoxia or hypercapnia Qualified Code(s): J96.20 - Acute and chronic respiratory failure, unspecified whether with hypoxia or hypercapnia
--- NOTE | 2024-03-12 10:53 | Pulmonology Progress Note ---
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): (3) ILD (interstitial lung disease): (4) Abnormal chest CT: (5) Acute and chronic respiratory failure, unspecified whether with hypoxia or hypercapnia: Respiratory failure complication: unspecified whether with hypoxia or hypercapnia Qualified Code(s): J96.20 - Acute and chronic respiratory failure, unspecified whether with hypoxia or hypercapnia Plan CT chest 03/09/2024 personally reviewed: Diffuse mosaicism appreciated bilaterally especially in the lower lobes Increased reticular markings as well as traction bronchiectasis appreciated bilateral lower lobes more on the right side There seems to be a broncholith in the right lower lobe as well Cardiomegaly Calcified mediastinal and hilar lymph nodes 2D echo 03/10/2024: EF 50-55%, RV not well-visualized, PASP 66 mmHg, mild TR, mild MR --Acute hypoxic respiratory failure Multifactorial Respiratory bio fire negative for everything 03/09/2024 Nasal MRSA negative BNP 156 --Abnormal chest CT There seems to be increased reticular markings as well as traction bronchiectasis Likely progressive ILD. Patient also has calcified mediastinal and hilar lymph nodes with possible broncholith in the right lower lobe, they have not changed compared to CT chest 10/2019 -- A-fib On Eliquis --Morbid obesity Plan: ABG with compensated chronic hypercapnic respiratory failure. Continue supplemental oxygen to maintain sats of 88 to 92%. Oxygen requirements are back to baseline. Patient's significant issue is ambulatory dysfunction and obesity. Patient will likely need placement to SNF. Recommend avoiding overly sedating medications such as tramadol as the patient is extremely lethargic this morning. Autoimmunue serologic workup ordered by proceeding contract graphic designer. Workup unlikely to change treatment plan at this time. Procalcitonin unremarkable from 03/11/2024. Will discontinue antibiotics. Maintain euvolemia. No further recommendations at this time. Pulmonary signed off. Please call with questions. Thank you for the consult. Admission and Anticipated Discharge Date Admission Date: March 09, 2024 Subjective Patient very drowsy this morning. She just received tramadol per nursing. Patient notes that she has some ambulatory dysfunction at baseline and uses a walker. She is currently on baseline oxygen requirements of 3 L/min which she uses at home. Signout received by off going contract graphic designer. Review of Systems Review of Systems: All systems reviewed & are unremarkable except as noted in HPI & below Physical Exam Physical Exam: Constitutional: No acute distress, lethargic HEENT: EOMI, PERRLA Respiratory system: Decreased air entry bilaterally, minimal expiratory wheeze, no rhonchi, positive Velcro-like crackles bilaterally CVS: S1-S2 positive, no murmurs or gallops Abdomen: Soft, nontender, nondistended, positive bowel sounds x4 Extremities: +2 pulses bilaterally radialis/ dorsalis pedis, no cyanosis, +1 pitting edema bilaterally Neuro: Awake alert oriented x3, lethargic Psych: Normal mood and affect G/U: Positive Ch Skin: no rashes, warm and dry Lymphatic: no cervical or axillary lymphadenopathy Results & Data Results & Data Vital Signs (Past 12 Hours) Vital Signs Temp Pulse Pulse Resp BP Pulse Ox O2 Del Method 03/12/24 07:30 64 03/12/24 07:20 36.4 C L 57 L 20 101/64 92 Nasal Cannula 03/12/24 06:56 80 18 94 Nasal Cannula 03/12/24 03:14 36.6 C 62 20 137/77 98 Nasal Cannula 03/11/24 23:58 70 18 96 Nasal Cannula 03/11/24 22:55 36.6 C 63 16 125/85 93 Nasal Cannula O2 Flow Rate 03/12/24 07:30 03/12/24 07:20 3 03/12/24 06:56 3 03/12/24 03:14 3 03/11/24 23:58 4 03/11/24 22:55 3 PG Care Time/CCT Total # of Minutes Spent Total Time Spent with Patient: Total time spent is greater than 50% in coordination of care (as documented) at patient's floor/unit and/or counseling patient: Coding Level of Care Code 33059 SUB INP/OBS CARE 2/35MIN Diagnoses ISAIAS (obstructive sleep apnea) G47.33 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
--- NOTE | 2024-03-12 12:53 | Cardiology Progress Note ---
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 Admitted with acute on chronic heart failure. Symptoms likely due to medication noncompliance, possible dietary noncompliance. - Appears mildly hypervolemic on exam today, on baseline oxygen of 3L - Responding to IV diuresis, nephrology consulted, appreciate recs, diuretics per nephrology - Strict I/Os, monitor daily weights with standing scale if able - Continue Eliquis, Plavix, metoprolol, losartan, rosuvastatin - will need close cardiac follow up as outpatient 03/12/2024: -patient continues with mild hypervolemia on exam. Offers no cardiac complaints. -She remains on her Baseline supplemental O2 with 3LPM. -Patient has Purwick external catheter in place. Please obtain strict I&Os, and daily weights, prefer standing scale if able. -Nephrology also on consult and we are appreciative of any/all recommendations with regards to patient's diuretic plan -Goal serum K> 4.0 and Serum mag > 2.0 -patient to continue on Eliquis, Plavix, Metoprolol, Losartan and Crestor. -Will continue to follow. Case has been discussed with Dr. Brandt. Further recommendations regarding plan of care as per his assessment. I spent a total of 30 minutes on the date of service in preparation, delivery, documentation of the care provided to the patient excluding any time spent in the performance of separately billed services. YAJAIRA Jones [facility] Admission and Anticipated Discharge Date Admission Date: March 09, 2024 Supervising Physician Co-Signing Physician Notes Attending attestation: Case reviewed with the advanced practitioner. I have personally performed a history and physical examination on the patient. I have reviewed the advanced practitioner's documentation on the date of service referenced in note, and I agree with, and take responsibility for the plan of care. Telemetry reveals ventricular pacing in the 60s to 70s with underlying atrial fibrillation. Continue furosemide 40 mg IV twice daily. Pulmonary input noted and appreciated. I spent a total of 20 minutes coordinating, documenting, and providing care for this patient excluding time spent in the performance of separately billed services or time spent by another provider. Jese Brandt DO Subjective 03/12/2024: Patient seen and examined in follow up today. Feeling poorly. Complains of left shoulder pain and just being "uncomfortable". Denies any chest pain, pressure, palpitations. Denies any new shortness of breath. Remains on baseline O2 supplementation. Labs, vitals, diagnostics, telemetry and documentation reviewed. Telemetry reviewed showing Paced/underlying a-fib rates 60-70's. Of note, follows with Dr. Teran in OP setting Review of Systems 2 Review of Systems: All systems reviewed & are unremarkable except as noted in HPI & below Physical Exam Constitutional: + obese and cooperative; no acute distre ss and not ill appearing Neck: normal visual inspection and trachea midline Respiratory: normal respiratory effort; no respiratory distress, no labored breathing and no cough Auscultation: + diminished lung sounds (bilateral bases ) and + wheezes (faint expiratory wheezes throughout ); no crackles, no rales and no rhonchi Cardiovascular: Rate/Rhythm: + irregularly irregular Heart Sounds: normal S1 and normal S2; no murmur Vessels: dorsalis pedis pulses present; no JVD Extremities: + edema (trace BLE) Skin: no rashes, warm and dry Psychiatric: Orientation: alert and oriented x 3 Affect: + flat affect Results & Data Vital Signs (Past 12 Hours) Vital Signs Temp Pulse Pulse Resp BP Pulse Ox O2 Del Method 03/12/24 11:57 36.8 C 68 20 121/58 L 95 Nasal Cannula 03/12/24 11:21 Nasal Cannula 03/12/24 07:30 64 03/12/24 07:20 36.4 C L 57 L 20 101/64 92 Nasal Cannula 03/12/24 06:56 80 18 94 Nasal Cannula 03/12/24 03:14 36.6 C 62 20 137/77 98 Nasal Cannula O2 Flow Rate 03/12/24 11:57 3 03/12/24 11:21 3 03/12/24 07:30 03/12/24 07:20 3 03/12/24 06:56 3 03/12/24 03:14 3 Laboratory Results Cardiac Enzymes 03/11/24 Range/Units 13:05 B-Natriuretic Peptide 156 H (0-100) pg/ml Coagulation 03/11/24 Range/Units 13:05 B-Natriuretic Peptide 156 H (0-100) pg/ml CBC 03/12/24 Range/Units 08:23 WBC 9.46 (4.8-10.8) K/ul RBC 3.82 L (4.20-5.40) M/uL Hgb 10.8 L (12.0-16.0) g/dl Hct 35.4 L (37.0-47.0) % Plt Count 220 (130-400) K/uL Neut # (Auto) 6.54 H (1.40-6.50) K/uL Lymph # (Auto) 0.94 L (1.20-3.40) K/uL Mckinley # (Auto) 0.95 H (0.11-0.59) K/uL Eos # (Auto) 0.91 H (0.00-0.50) K/uL Baso # (Auto) 0.10 (0.00-0.20) K/uL Comprehensive Metabolic Panel 03/12/24 Range/Units 08:23 Sodium 133 L (136-145) mmol/L Potassium 4.9 (3.5-5.1) mmol/L Chloride 93 L (98-107) mmol/L Carbon Dioxide 35 H (21-32) mmol/L BUN 41 H (6-23) mg/dl Creatinine 2.07 H (0.6-1.2) mg/dl Glucose 155 H (70-99(Fasting)) mg/dl Calcium 9.4 (8.6-10.3) mg/dl Intake and Output 03/11/24 03/12/24 03/12/24 22:59 06:59 14:59 Intake Total 100 / 300 Balance 100 / 100 Intake: IV 50 / 50 cefTRIAXone SODIUM 2,000 mg In 50 / 50 50 ml @ 100 mls/hr IV Q24H JEY Rx#:[id number] Oral 50 / 250 Other: # Unmeasured Voids 1 Weight 122.2 kg Weight Measurement Method Built in [facility] (4) HTN (hypertension) Hypertension type: unspecified Qualified Code(s): I10 - Essential (primary) hypertension
--- NOTE | 2024-03-12 13:43 | Hospitalist Progress Note ---
Date of Service March 12, 2024 Assessment & Plan (1) Acute and chronic respiratory failure, unspecified whether with hypoxia or hypercapnia: (2) CHF exacerbation: Plan: 78-year-old female with PMHx significant for complete heart block s/p pacemaker placement, nonischemic cardiomyopathy, CAD status post stent placement, CHF systolic and diastolic type, paroxysmal atrial fibrillation on Eliquis, peripheral vascular disease, chronic hypoxic respiratory failure on 3 L of oxygen, asthma, obstructive sleep apnea, diabetes type 2, hypertension, dyslipidemia, CKD stage IV, Hx of DVT who presents with progressive shortness of breath x 1 week. Acute exacerbation of congestive heart failure, combined systolic and diastolic type Usually takes torsemide 40 mg daily along with Toprol-XL and losartan 25 mg daily CXR: Interval progression of the diffuse interstitial/vascular thickening and patchy airspace opacities. This suggests worsening pulmonary edema. A superimposed pneumonia would be difficult to exclude. Lasix 40 mg IV given, continue with it daily Echocardiogram ordered Cardiology, nephrology service was consulted, appreciate recs -IV Lasix 40mg BID Rule out pneumonia, asthma exacerbation Chest xray suggestive of a superimposed pneumonia CT chest notes possible atypical infection vs. interstitial lung disease vs. hypersensitivity pneumonitis BioFire negative Urine Legionella antigen: Pending Was on empiric IV P.o.ceftriaxone plus doxycycline, discontinued by pulmonology Xopenex 3 times daily, hypertonic saline twice daily Incentive spirometer, flutter valve, Mucinex twice daily Pulmonology consulted, appreciate recs Chronic hypoxic respiratory failure Remains on 3 L of oxygen via nasal cannula, which is her baseline Monitor closely Pulmonology consulted, appreciate recs Coronary artery disease, status post stent placement Troponin 36, 42, 35, essentially flat No cardiac symptoms at this point EKG no signs of acute ischemia or infarct Echocardiogram ordered Continue usual Plavix, rosuvastatin, Toprol-XL, losartan Doubt ACS Complete heart block status post pacemaker Denies palpitations, syncope or presyncope Has pacemaker Paroxysmal atrial fibrillation Continue metoprolol XL 50 mg daily, Eliquis 5 mg p.o. twice daily Peripheral vascular disease Continue Plavix, rosuvastatin, Eliquis Chronic Pain Pt with chronic pain, r shoulder pain Lidocaine patch PRN tylenol Pulmonology recommending d/c of tramadol- dose decreased to 25mg q6h Continue to monitor CKD stage IV At baseline Will consult nephrology service for assistance with diuretic management Diabetes type 2, not currently controlled Hgba1c of 8.7, not currently controlled/at goal On glargine and NovoLog at home Glycemic control service consulted Hypertension Continue metoprolol, losartan History of DVT On Eliquis Chronic anemia Hgb of 11.5 to 10.3 Diet: DMII, HH, low sodium, FR DVT prophylaxis: on Eliquis Dispo: PT/OT ordered for further recs Admission and Anticipated Discharge Date Admission Date: March 09, 2024 Subjective Pt was seen in the AM. Was eating breakfast at that time. States that she had pain in her right arm from where they real blood in the AM. Notes shoulder pain. Denies chest pain, increased SOB. Review of Systems Review of Systems: All systems reviewed & are unremarkable except as noted in Subjective Physical Exam Physical Exam: General: Alert, oriented. No acute distress Skin: No noted rashes or bruises Psych: Appropriate mood and affect Neuro: difficulty with movements in the bed HEENT: NC/AT CV: heart sounds decreased due to habitus Resp: Breath sounds decreased bilaterally with some wheezing, no increased effort of breathing Abdomen: Soft, nontender Extremities: edema in lower extremities bilaterally. Results & Data Results & Data Vital Signs (Past 12 Hours) Vital Signs Temp Pulse Pulse Resp BP Pulse Ox O2 Del Method 03/12/24 11:57 36.8 C 68 20 121/58 L 95 Nasal Cannula 03/12/24 11:21 Nasal Cannula 03/12/24 07:30 64 03/12/24 07:20 36.4 C L 57 L 20 101/64 92 Nasal Cannula 03/12/24 06:56 80 18 94 Nasal Cannula 03/12/24 03:14 36.6 C 62 20 137/77 98 Nasal Cannula O2 Flow Rate 03/12/24 11:57 3 03/12/24 11:21 3 03/12/24 07:30 03/12/24 07:20 3 03/12/24 06:56 3 03/12/24 03:14 3 (1) Acute and chronic respiratory failure, unspecified whether with hypoxia or hypercapnia Respiratory failure complication: unspecified whether with hypoxia or hypercapnia Qualified Code(s): J96.20 - Acute and chronic respiratory failure, unspecified whether with hypoxia or hypercapnia (2) CHF exacerbation Heart failure type: unspecified Qualified Code(s): I50.9 - Heart failure, unspecified
[2024-03-12] MEDS: LIDOCAINE 5% 1 PATCH TD SCH (18:32)
[2024-03-13 06:34] LABS: Basophils # (auto) 0.07 K/uL (0.00-0.20); Basophils % (auto) 0.9 %; Eosinophils # (auto) 0.82 K/uL (0.00-0.50); Hematocrit (blood only) 34.9 % (37.0-47.0); Hemoglobin 10.7 g/dl (12.0-16.0); Immature Granulocytes # (auto) 0.01 K/uL (0.01-0.20); Immature Granulocytes % (auto) 0.1 %; Lymphocytes # (auto) 0.87 K/uL (1.20-3.40); Lymphocytes % (auto) 11.7 %; Mean Corpuscular Hemoglobin 28.3 pg (25.0-34.0); Mean Corpuscular Hgb Conc 30.7 g/dL (32.0-36.0); Mean Corpuscular Volume 92.3 fL (80.0-100.0); Mean Platelet Volume 9.9 fL (9.4-12.4); Monocytes # (auto) 0.93 K/uL (0.11-0.59); Monocytes % (auto) 12.5 %; Neutrophils # (auto) 4.76 K/uL (1.40-6.50); Neutrophils % (auto) 63.8 %; Platelet Count 212 K/uL (130-400); RDW Coefficient of Variation 15.7 % (11.5-14.5); RDW Standard Deviation 52.9 fL (36.4-46.3); Red Blood Count 3.78 M/uL (4.20-5.40); White Blood Count 7.46 K/ul (4.8-10.8)
[2024-03-13 06:48] LABS: BUN Creatinine Ratio 20.8 (10-20); Calcium 9.2 mg/dl (8.6-10.3); Creatinine Clr Calc Pharmacy 27.4 ml/min; Est GFR (African American) 25.2 ml/min; Est GFR (Non-African American) 21.7 ml/min; Magnesium 1.8 mg/dl (1.7-2.4); Phosphorus 4.9 mg/dl (2.5-4.9); Potassium 4.9 mmol/L (3.5-5.1)
--- NOTE | 2024-03-13 08:48 | Cardiology Progress Note ---
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 Admitted with acute on chronic heart failure. Symptoms likely due to medication noncompliance, possible dietary noncompliance. - Appears mildly hypervolemic on exam today, on baseline oxygen of 3L - Responding to IV diuresis, nephrology consulted, appreciate recs, diuretics per nephrology - Strict I/Os, monitor daily weights with standing scale if able - Continue Eliquis, Plavix, metoprolol, losartan, rosuvastatin - will need close cardiac follow up as outpatient 03/12/2024: -patient continues with mild hypervolemia on exam. Offers no cardiac complaints. -She remains on her Baseline supplemental O2 with 3LPM. -Patient has Purwick external catheter in place. Please obtain strict I&Os, and daily weights, prefer standing scale if able. -Nephrology also on consult and we are appreciative of any/all recommendations with regards to patient's diuretic plan -Goal serum K> 4.0 and Serum mag > 2.0 -patient to continue on Eliquis, Plavix, Metoprolol, Losartan and Crestor. -Will continue to follow. 03/13/2024: -Notation of mild hypervolemia on exam, remains wheezy throughout which is multi-factorial. -She remains on her Baseline supplemental O2 with 3LPM. -Please obtain daily weights, prefer a standing scale and strict I&O. -Nephrology continues to follow and remain appreciative of all recommendations. -Goal serum K> 4.0 and Serum mag > 2.0 -Continues on Lasix 40mg IV BID today, reassess volume status in the AM with consideration of transition to PO diuretics, will await Nephrology's input. -patient to continue on Eliquis, Plavix, Metoprolol, Losartan and Crestor. Case has been discussed with Dr. Brandt. Further recommendations regarding plan of care as per his assessment. I spent a total of 30 minutes on the date of service in preparation, delivery, documentation of the care provided to the patient excluding any time spent in the performance of separately billed services. YAJAIRA Jones [facility] Admission and Anticipated Discharge Date Admission Date: March 09, 2024 Supervising Physician Co-Signing Physician Notes Attending attestation: Case reviewed with the advanced practitioner. I have personally performed a history and physical examination on the patient. I have reviewed the advanced practitioner's documentation on the date of service referenced in note, and I agree with, and take responsibility for the plan of care. Telemetry reveals ventricular pacing in the 60s to 70s with underlying atrial fibrillation. Continue furosemide 40 mg IV twice daily. Since initial assessment by Mrs Montiel this morning, patient suffered a mechanical fall with left knee injury. X-ray reveals periprosthetic fracture above the left tibia with associated soft tissue swelling. Orthopedic evaluation tentatively planned. Will hold Eliquis in case surgical intervention indicated. I spent a total of 20 minutes coordinating, documenting, and providing care for this patient excluding time spent in the performance of separately billed services or time spent by another provider. Jese Brandt, Subjective 03/13/24: Patient seen and examined in follow up today. Feeling fair. offers no cardiac complaints. Complains of a headache and believes its from "too much insulin". Nursing staff has just provided Tylenol. Denies chest pain, pressure, palpitations, shortness of breath, PND, pre-syncope, syncope or edema. Labs, vitals, diagnostics, telemetry and documentation reviewed. Telemetry reviewed showing Paced rates 60s. Review of Systems Review of Systems: All systems reviewed & are unremarkable except as noted in HPI & below Physical Exam Constitutional: + obese and cooperative; no acute distre ss and not ill appearing Neck: normal visual inspection and trachea midline Respiratory: normal respiratory effort; no respiratory distress, no labored breathing and no cough Auscultation: + diminished lung sounds (bilateral bases ) and + wheezes (faint expiratory wheezes throughout ); no crackles, no rales and no rhonchi Cardiovascular: Rate/Rhythm: + irregularly irregular Heart Sounds: normal S1 and normal S2; no murmur Vessels: dorsalis pedis pulses present; no JVD Extremities: + edema (trace BLE) Skin: no rashes, warm and dry Psychiatric: Orientation: alert and oriented x 3 Affect: + flat affect Results & Data Vital Signs (Past 12 Hours) Vital Signs Temp Pulse Pulse Resp BP Pulse Ox O2 Del Method 07/16/24 08:03 36.4 C L 63 18 119/64 93 Nasal Cannula 03/13/24 07:43 64 03/13/24 07:22 60 16 96 Nasal Cannula 03/13/24 02:55 36.5 C 63 20 143/81 H 97 Nasal Cannula 03/12/24 23:16 36.6 C 59 L 14 127/69 97 Nasal Cannula 03/12/24 22:02 63 03/12/24 20:50 Nasal Cannula O2 Flow Rate 03/13/24 08:03 3 03/13/24 07:43 03/13/24 07:22 3 03/13/24 02:55 3 03/12/24 23:16 3 03/12/24 22:02 03/12/24 20:50 3 Laboratory Results CBC 03/13/24 Range/Units 05:53 WBC 7.46 (4.8-10.8) K/ul RBC 3.78 L (4.20-5.40) M/uL Hgb 10.7 L (12.0-16.0) g/dl Hct 34.9 L (37.0-47.0) % Plt Count 212 (130-400) K/uL Neut # (Auto) 4.76 (1.40-6.50) K/uL Lymph # (Auto) 0.87 L (1.20-3.40) K/uL [place] # (Auto) 0.93 H (0.11-0.59) K/uL Eos # (Auto) 0.82 H (0.00-0.50) K/uL Baso # (Auto) 0.07 (0.00-0.20) K/uL Comprehensive Metabolic Panel 03/13/24 Range/Units 05:53 Sodium 132 L (136-145) mmol/L Potassium 4.9 (3.5-5.1) mmol/L Chloride 93 L (98-107) mmol/L Carbon Dioxide 35 H (21-32) mmol/L BUN 44 H (6-23) mg/dl Creatinine 2.12 H (0.6-1.2) mg/dl Glucose 123 H (70-99(Fasting)) mg/dl Calcium 9.2 (8.6-10.3) mg/dl Intake and Output 03/12/24 03/13/2403/13/24 22:59 06:59 14:59 Intake Total 650 / 650 Output Total 450 / 650 200 / 650 Balance 200 / 0 -200 / 0 Intake: Oral 650 / 650 Output: Urine Amount (Catheter) 450 / 650 200 / 650 External 450 / 650 200 / 650 Other: Other Intake Source Sips Weight 123.1 kg Weight Measurement Method Built in [facility] (4) HTN (hypertension) Hypertension type: unspecified Qualified Code(s): I10 - Essential (primary) hypertension
[2024-03-13] MEDS: ACETAMINOPHEN 500 MG TAB PO PRN (09:04)
[2024-03-13] MEDS: traMADol HCL 50 MG TABLET PO PRN (11:22)
--- NOTE | 2024-03-13 11:27 | Pharmacy Report ---
Pharmacy Glycemic Short Note 2 - Date of Service March 13, 2024 - Glycemic Short BSG Results (Last 24 hours): 03/12/24 03/12/24 03/12/24 11:56 16:55 20:23 Glucose POC Glucose 168 H 164 H 138 H 03/13/24 03/13/24 05:53 07:29 Glucose 123 H POC Glucose 136 H OUTPATIENT ANTIDIABETIC REGIMEN: * Lantus 22 units bid, * Novolog 18 units TIDM * HbA1c: 8.7% (03/10/24) ASSESSMENT: 03/13 * Ms Lamar has been receiving ~30-40 units of insulin per day, with acceptable glycemic control. * Carb ratio was tightened slightly yesterday morning to provide better coverage throughout the day. * No further changes at this time. 03/10 * 78 year old admitted with CHF exacerbation. Pharmacy consulted for glycemic management. Fasting BSG 183 mg/dL this AM, will trial Lantus 10 units bid for now until PO intake known. PLAN FOR INPATIENT GLYCEMIC CONTROL: * Hold outpatient oral diabetes medications * Basal insulin * Lantus 10 units SQ BID * Bolus insulin * NovoLog per scale ACHS or Q6hrs while NPO * Goal Range: Low 110 mg/dL - High 140 mg/dL * Correction Factor: 30 mg/dL/unit * Nutritional / Prandial insulin per carb ratio of 1 unit per 8 grams CHO consumed
--- NOTE | 2024-03-13 11:59 | Communication Note ---
Date of Service: March 13, 2024 Note initiated in error.
--- NOTE | 2024-03-13 12:08 | XRay Report ---
XR tibia fibula LT 2V CLINICAL HISTORY: fall, knee "buckled" TECHNIQUE: 2 radiographic views of the left leg were obtained. Comparison: Comparison is made to knee radiographs 03/23/2022 FINDINGS: Lucency and mild displacement at the anterior tibia is compatible with periprosthetic fracture about the tibial component. Knee arthroplasty components are intact. Soft tissue swelling and vascular lesi ons are seen. IMPRESSION: Periprosthetic fracture about the left tibial component of the knee arthroplasty, with associated sof t tissues ACT 112: Negative or not required by law. Electronically signed by: Mahesh Evans M.D. 03/13/2024 12:06 PM
--- NOTE | 2024-03-13 12:16 | Hospitalist Progress Note ---
Date of Service March 13, 2024 Assessment & Plan (1) Acute and chronic respiratory failure, unspecified whether with hypoxia or hypercapnia: (2) CHF exacerbation: Plan: 78-year-old female with PMHx significant for complete heart block s/p pacemaker placement, nonischemic cardiomyopathy, CAD status post stent placement, CHF systolic and diastolic type, paroxysmal atrial fibrillation on Eliquis, peripheral vascular disease, chronic hypoxic respiratory failure on 3 L of oxygen, asthma, obstructive sleep apnea, diabetes type 2, hypertension, dyslipidemia, CKD stage IV, Hx of DVT who presents with progressive shortness of breath x 1 week. Acute exacerbation of congestive heart failure, combined systolic and diastolic type Usually takes torsemide 40 mg daily along with Toprol-XL and losartan 25 mg daily CXR: Interval progression of the diffuse interstitial/vascular thickening and patchy airspace opacities. This suggests worsening pulmonary edema. A superimposed pneumonia would be difficult to exclude. Lasix 40 mg IV given, continue with it daily Echocardiogram ordered Cardiology, nephrology service was consulted, appreciate recs -IV Lasix 40mg BID Rule out pneumonia, asthma exacerbation Chest xray suggestive of a superimposed pneumonia CT chest notes possible atypical infection vs. interstitial lung disease vs. hypersensitivity pneumonitis BioFire negative Urine Legionella antigen: Pending Was on empiric IV P.o.ceftriaxone plus doxycycline, discontinued by pulmonology Xopenex 3 times daily, hypertonic saline twice daily Incentive spirometer, flutter valve, Mucinex twice daily Pulmonology consulted, appreciate recs Chronic hypoxic respiratory failure Remains on 3 L of oxygen via nasal cannula, which is her baseline Monitor closely Pulmonology consulted, appreciate recs Periprosthetic Left knee fracture pt had a fall while working with PT on 03/13 States that her left knee "buckled" XRAY tib fib noting "Periprosthetic fracture about the left tibial component of the knee arthroplasty" Orthopedics was consulted, appreciate recs: -will see on 03/14 - Keep in knee immobilizer (orthotics consult placed) -NWB -Ice to knee Eliquis on hold, NPO after midnight for any needed procedure Pain control- pulmonology previously recommended avoiding use of narcotics with pt's respiratory status however pain control appropriate in this setting Scheduled IV tylenol 1000mg q8h with prn tramadol 25mg q6h and PRN dilaudid 0.25mg q6h for SEVERE pain only. Continue to monitor Coronary artery disease, status post stent placement Troponin 36, 42, 35, essentially flat No cardiac symptoms at this point EKG no signs of acute ischemia or infarct Echocardiogram ordered Continue usual Plavix, rosuvastatin, Toprol-XL, losartan Doubt ACS Complete heart block status post pacemaker Denies palpitations, syncope or presyncope Has pacemaker Paroxysmal atrial fibrillation Continue metoprolol XL 50 mg daily, Eliquis 5 mg p.o. twice daily Peripheral vascular disease Continue Plavix, rosuvastatin, Eliquis Chronic Pain Pt with chronic pain, r shoulder pain Lidocaine patch PRN tylenol Pulmonology recommending d/c of tramadol- dose decreased to 25mg q6h Continue to monitor CKD stage IV At baseline Will consult nephrology service for assistance with diuretic management Diabetes type 2, not currently controlled Hgba1c of 8.7, not currently controlled/at goal On glargine and NovoLog at home Glycemic control service consulted Hypertension Continue metoprolol, losartan History of DVT On Eliquis Chronic anemia Hgb of 11.5 to 10.3 Diet: DMII, HH, low sodium, FR DVT prophylaxis: on Eliquis Dispo: PT/OT ordered for further recs Admission and Anticipated Discharge Date Admission Date: March 09, 2024 Subjective per nursing pt had a fall while working with PT States that her left knee "buckled" When seen, pt notes previous fracture in the leg states that pain is uncontrollable Review of Systems Review of Systems: All systems reviewed & are unremarkable except as noted in Subjective Physical Exam Physical Exam: General: Alert, oriented. No acute distress Skin: Psych: tearful mood and affect Neuro: difficulty with movements in the bed HEENT: NC/AT CV: heart sounds decreased due to habitus Resp: Breath sounds decreased bilaterally , no increased effort of breathing Abdomen: Soft, nontender Extremities: left lower extremity with swelling near knee, tender to palpation Results & Data Results & Data Vital Signs (Past 12 Hours) Vital Signs Temp Pulse Pulse Resp BP BP Pulse Ox 03/13/24 11:39 36.4 C L 60 18 150/61 H 92 03/13/24 10:29 36.7 C 60 18 106/63 95 03/13/24 10:22 03/13/24 08:03 36.4 C L 63 18 119/64 93 03/13/24 07:43 64 03/13/24 07:22 60 16 96 03/13/24 02:55 36.5 C 63 20 143/81 H 97 O2 Del Method O2 Flow Rate 03/13/24 11:39 Nasal Cannula 3 03/13/24 10:29 Nasal Cannula 3 03/13/24 10:22 Nasal Cannula 3 03/13/24 08:03 Nasal Cannula 3 03/13/24 07:43 03/13/24 07:22 Nasal Cannula 3 03/13/24 02:55 Nasal Cannula 3 Diagnostic Findings Chest X-Ray 03/09/24 14:14 XR chest 1V portable HISTORY: Chest pain, nonspecific COMPARISON: Chest 01/20/2024. FINDINGS: There are low lung volumes. No pneumothorax. The heart remains enlarged. Is left-sided pacemaker again noted. Slight progression of the diffuse interstitial/vascular thickening and patchy airspace opacities. This suggests worsening pulmonary edema. A superimposed pneumonia would be difficult to exclude. There are trace bilateral pleural effusions. IMPRESSION: Interval progression of the diffuse interstitial/vascular thickening and patchy airspace opacities. This suggests worsening pulmonary edema. A superimposed pneumonia would be difficult to exclude. ACT 112: Negative or not required by law. Electronically signed by: Jj Solano M.D. 03/09/2024 3:[address] 03/09/24 17:29 Exam(s): CT CHEST Without Contrast EXAM: CT Chest Without Intravenous Contrast CLINICAL HISTORY: Reason for exam: hypoxia, chf, r/o pneumonia. TECHNIQUE: Axial computed tomography images of the chest without intravenous contrast. CTDI is 40.1 mGy and DLP is 1199.68 mGy-cm. Automated exposure control was utilized for the study. A dose lowering technique was utilized adhering to the principles of ALARA. COMPARISON: Chest CT 11/01/2019 FINDINGS: Lungs: There is diffuse interstitial thickening with areas of groundglass, mosaic attenuation, and subpleural reticulation. Calcified nodules in the right hilum consistent with sequela of past granulomatous disease. Pleural space: No pleural effusion or pneumothorax. Heart: Cardiomegaly. Moderate CAD. Multiple pacemaker leads in place. Mediastinum: Mildly prominent mediastinal lymph nodes. Subcarinal node measures 1.5 cm (series 2 image 22). Paratracheal lymph node measures 1.3 cm (series 2 image 9). Bones/joints: No acute findings. Soft tissues: Unremarkable. Vasculature: Unremarkable. IMPRESSION: 1. There is diffuse interstitial thickening with areas of groundglass, mosaic attenuation, and subpleural reticulation. Differential includes interstitial lung disease, hypersensitivity pneumonitis, and atypical infection. 2. Mild reactive appearing adenopathy. Electronically signed by: Thierno Stauffer MD 03/09/24 23:39 PM Tibia/Fibula X-Ray 03/13/24 11:15 XR tibia fibula LT 2V CLINICAL HISTORY: fall, knee "buckled" TECHNIQUE: 2 radiographic views of the left leg were obtained. Comparison: Comparison is made to knee radiographs 03/23/2022 FINDINGS: Lucency and mild displacement at the anterior tibia is compatible with periprosthetic fracture about the tibial component. Knee arthroplasty components are intact. Soft tissue swelling and vascular lesions are seen. IMPRESSION: Periprosthetic fracture about the left tibial component of the knee arthroplasty, with associated soft tissues ACT 112: Negative or not required by law. Electronically signed by: Mahesh Evans M.D. 03/13/2024 12:06 PM Ankle X-Ray 03/13/24 12:16 XR ankle LT min 3V routine CLINICAL HISTORY: Left ankle pain. COMPARISON: Left ankle radiographs September 22, 2021. FINDINGS: Alignment of the left ankle is anatomic. There is no acute fracture. Moderate vascular calcification is present. There are no osseous lesions. IMPRESSION: No fractures within the left ankle. ACT 112: Negative or not required by law. Electronically signed by: Sushil Michele M.D. 03/13/2024 1:11 PM (1) Acute and chronic respiratory failure, unspecified whether with hypoxia or hypercapnia Respiratory failure complication: unspecified whether with hypoxia or hypercapnia Qualified Code(s): J96.20 - Acute and chronic respiratory failure, unspecified whether with hypoxia or hypercapnia (2) CHF exacerbation Heart failure type: unspecified Qualified Code(s): I50.9 - Heart failure, unspecified
[2024-03-13] MEDS ORDERED: LEVALBUTEROL 1.25 MG/3 ML NEB NEB PRN (13:02)
--- NOTE | 2024-03-13 13:07 | Nephrology Progress Note ---
Date of Service March 13, 2024 Assessment & Plan (1) Acute and chronic respiratory failure, unspecified whether with hypoxia or hypercapnia: Plan: Primary reason and appears both Pulmonary and cardiac. However she does not appear in much distress. On same o2 as home. pulmonary evaluated and signed off At home takes torsemide 40 daily. s/p Abx for multifocal pneumonia >> contlasix 40 iv bid (started/upped to this 03/11); just after I saw her she fell, injured leg >> will therefore defer change to torsemide 60 mg daily (2) Acute kidney injury superimposed on chronic kidney disease: Plan: stage 1 nonoliguric ELOY on CKD 3B. hard to pinpoint baseline creat but maybe slightly higher than her baseline. CKD 3-4 w/ fluctuating baseline, most recent OP value 1.7; has had CKD 4 in past. urine appears active. But nothing to suggest GN of any type. former pt of Dr Olguin -cont lasix as above for now daily bmp, mag I and O charting. >Can continue Losartan for now but may need to hold -urocit on hold since 03/10 given borderline high k - continue Admission and Anticipated Discharge Date Admission Date: March 09, 2024 Subjective no interval events clinically before I saw her late this am; denies wrosening sob, n/v, uncontrolled pain. does tell me "I don't do liquids b/c my mother raised me on nothing but liquids until I was 6" RN reports pt more confused at times today. Review of Systems 2 Review of Systems: All systems reviewed & are unremarkable except as noted in Subjective Physical Exam 2 Constitutional: well developed, well nourished and + morbidly obese; no acute distress Eyes: EOM intact bilaterally ENMT: Ears: no external ear abnormality Nose: no external nose abnormality Mouth: + dry oral mucous membranes Neck: no nuchal rigidity Respiratory: normal respiratory effort Auscultation: + crackles and + wheezes (insp/exp) Cardiovascular: Rate/Rhythm: regular rate and regular rhythm Extremities: n o edema Gastrointestinal (Abdomen): Inspection/Auscultation: normal bowel sounds P ercussion/Palpation: abdomen soft; abdomen nontender Musculoskeletal: Extremities: strength 5/5 throughout Skin: no rashes, warm and dry Neurologic: alvarez, follows commands, maneuvers for exam Psychiatric: Orientation: alert and oriented to person Results & Data Vital Signs (Past 12 Hours) Vital Signs Temp Pulse Pulse Resp BP BP Pulse Ox 03/13/24 11:39 36.4 C L 60 18 150/61 H 92 03/13/24 10:29 36.7 C 60 18 106/63 95 03/13/24 10:22 03/13/24 08:03 36.4 C L 63 18 119/64 93 03/13/24 07:43 64 03/13/24 07:22 60 16 96 03/13/24 02:55 36.5 C 63 20 143/81 H 97 O2 Del Method O2 Flow Rate 03/13/24 11:39 Nasal Cannula 3 03/13/24 10:29 Nasal Cannula 3 03/13/24 10:22 Nasal Cannula 3 03/13/24 08:03 Nasal Cannula 3 03/13/24 07:43 03/13/24 07:22 Nasal Cannula 3 03/13/24 02:55 Nasal Cannula 3 Laboratory Results 03/13/24 05:53 03/13/24 05:53 (1) Acute and chronic respiratory failure, unspecified whether with hypoxia or hypercapnia Respiratory failure complication: unspecified whether with hypoxia or hypercapnia Qualified Code(s): J96.20 - Acute and chronic respiratory failure, unspecified whether with hypoxia or hypercapnia
--- NOTE | 2024-03-13 13:14 | XRay Report ---
XR ankle LT min 3V routine CLINICAL HISTORY: Left ankle pain. COMPARISON: Left ankle radiographs September 22, 2021. FINDINGS: Alignment of the left ankle is anatomic. There is no acute fracture. Moderate vascular ricky cification is present. There are no osseous lesions. IMPRESSION: No fractures within the left ankle. ACT 112: Negative or not required by law. Electronically signed by: Sushil Michele M.D. 03/13/2024 1:11 PM
[2024-03-13] MEDS: HYDROmorphone INJ 0.5 MG/0.5 ML SYR IV STA (13:30)
[2024-03-13] MEDS: HYDROmorphone INJ 0.5 MG/0.5 ML SYR IV PRN (22:15)
[2024-03-14] MEDS: ACETAMINOPHEN 500 MG TAB PO SCH (04:23)
[2024-03-14 06:06] LABS: Basophils # (auto) 0.08 K/uL (0.00-0.20); Basophils % (auto) 0.9 %; Eosinophils # (auto) 0.84 K/uL (0.00-0.50); Eosinophils % (auto) 9.9 %; Hematocrit (blood only) 34.6 % (37.0-47.0); Hemoglobin 10.8 g/dl (12.0-16.0); Immature Granulocytes # (auto) 0.03 K/uL (0.01-0.20); Immature Granulocytes % (auto) 0.4 %; Lymphocytes # (auto) 0.99 K/uL (1.20-3.40); Lymphocytes % (auto) 11.6 %; Mean Corpuscular Hemoglobin 28.5 pg (25.0-34.0); Mean Corpuscular Hgb Conc 31.2 g/dL (32.0-36.0); Mean Corpuscular Volume 91.3 fL (80.0-100.0); Mean Platelet Volume 9.8 fL (9.4-12.4); Monocytes # (auto) 0.95 K/uL (0.11-0.59); Monocytes % (auto) 11.2 %; Neutrophils # (auto) 5.61 K/uL (1.40-6.50); Platelet Count 218 K/uL (130-400); RDW Coefficient of Variation 15.6 % (11.5-14.5); RDW Standard Deviation 51.8 fL (36.4-46.3); Red Blood Count 3.79 M/uL (4.20-5.40)
[2024-03-14 06:28] LABS: Anion Gap 4 (3-11); BUN Creatinine Ratio 23.2 (10-20); Blood Urea Nitrogen 51 mg/dl (6-23); Carbon Dioxide 35 mmol/L (21-32); Chloride 90 mmol/L (98-107); Creatinine Clr Calc Pharmacy 26.2 ml/min; Est GFR (African American) 24.1 ml/min; Est GFR (Non-African American) 20.8 ml/min; Glucose 141 mg/dl (70-99(Fasting)); Magnesium 1.9 mg/dl (1.7-2.4); Phosphorus 4.6 mg/dl (2.5-4.9); Sodium 129 mmol/L (136-145)
--- NOTE | 2024-03-14 08:40 | Cardiology Progress Note ---
Date of Service March 14, 2024 Assessment & Plan (1) 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): (2) Paroxysmal atrial fibrillation: (3) Dyslipidemia: (4) HTN (hypertension): (5) ISAIAS (obstructive sleep apnea): Plan 78-year-old female who presented with shortness of breath and cough x 1 week. Admitted with acute on chronic heart failure. Symptoms likely due to medication noncompliance, possible dietary noncompliance. - Appears mildly hypervolemic on exam today, on baseline oxygen of 3L - Responding to IV diuresis, nephrology consulted, appreciate recs, diuretics per nephrology - Strict I/Os, monitor daily weights with standing scale if able - Continue Eliquis, Plavix, metoprolol, losartan, rosuvastatin - will need close cardiac follow up as outpatient 03/12/2024: -patient continues with mild hypervolemia on exam. Offers no cardiac complaints. -She remains on her Baseline supplemental O2 with 3LPM. -Patient has [place] external catheter in place. Please obtain strict I&Os, and daily weights, prefer standing scale if able. -Nephrology also on consult and we are appreciative of any/all recommendations with regards to patient's diuretic plan -Goal serum K> 4.0 and Serum mag > 2.0 -patient to continue on Eliquis, Plavix, Metoprolol, Losartan and Crestor. -Will continue to follow. 03/13/2024: -Notation of mild hypervolemia on exam, remains wheezy throughout which is multi-factorial. -She remains on her Baseline supplemental O2 with 3LPM. -Please obtain daily weights, prefer a standing scale and strict I&O. -Nephrology continues to follow and remain appreciative of all recommendations. -Goal serum K> 4.0 and Serum mag > 2.0 -Continues on Lasix 40mg IV BID today, reassess volume status in the AM with consideration of transition to PO diuretics, will await Nephrology's input. -patient to continue on Eliquis, Plavix, Metoprolol, Losartan and Crestor. 03/14/2024: -Volume status continues to improve. Nephrology remains on consult. They have changed patient from Furosemide 40mg IV BID to Torsemide 60mg Daily after patient had sustained her fall with subsequent fracture. -Renal function remains stable. Continue with close monitor of renal function, electrolytes and daily weights. Strict I&O. -Goal serum K>4.0 and Serum Mag > 2.0 -Continue Plavix, Metoprolol, Losartan and Crestor. -Eliquis had been placed on hold after hearing that patient had suffered her fall with sustained fracture. Review of orthopedics consult today states that surgical intervention is not recommended at this time. We will restart Eliquis at this time. Case has been discussed with Dr. Brandt. Further recommendations regarding plan of care as per his assessment. I spent a total of 30 minutes on the date of service in preparation, delivery, documentation of the care provided to the patient excluding any time spent in the performance of separately billed services. YAJAIRA Jones [facility] Admission and Anticipated Discharge Date Admission Date: March 09, 2024 Supervising Physician Co-Signing Physician Notes Attending attestation: Case reviewed with the advanced practitioner. I have personally performed a history and physical examination on the patient. I have reviewed the advanced practitioner's documentation on the date of service referenced in note, and I agree with, and take responsibility for the plan of care. Orthopedics input noted and appreciated. Nonoperative treatment for periprosthetic fracture recommended. Resume Eliquis 2.5 mg twice daily. Continue furosemide 40 mg IV BID. I spent a total of 20 minutes coordinating, documenting, and providing care for this patient excluding time spent in the performance of separately billed services or time spent by another provider. Jese Brandt, Subjective 03/14/2024: Patient seen and examined in follow up today. Feeling poorly. She is lethargic, but awakens to verbal stimuli. She is receiving pain medications s/t to a ground level mechanical fall yesterday resulting in a fracture. Denies chest pain, pressure, palpitations, shortness of breath, PND, pre- syncope, or syncope. Labs, vitals, diagnostics, telemetry and documentation reviewed. Telemetry reviewed showing Atrial fibrillation/flutter with occasional PVC's rates 60's. Review of Systems Review of Systems: All systems reviewed & are unremarkable except as noted in HPI & below Physical Exam Constitutional: + obese and cooperative; no acute distre ss and not ill appearing Neck: normal visual inspection and trachea midline Respiratory: normal respiratory effort; no respiratory distress, no labored breathing and no cough Auscultation: + diminished lung sounds (bilateral bases ) and + wheezes (faint expiratory wheezes throughout ); no crackles, no rales and no rhonchi Cardiovascular: Rate/Rhythm: + irregularly irregular Heart Sounds: normal S1 and normal S2; no murmur Vessels: dorsalis pedis pulses present; no JVD Extremities: + edema (trace BLE) Skin: no rashes, warm and dry Psychiatric: Orientation: alert (drowsy, but awakens to verbal stimuli ) and oriented x 3 Affect: + flat affect Results & Data Vital Signs (Past 12 Hours) Vital Signs Temp Pulse Pulse Resp BP BP Pulse Ox 03/14/24 07:33 62 03/14/24 07:18 36.4 C L 66 20 112/55 L 98 03/14/24 03:13 36.6 C 62 18 114/64 98 03/13/24 23:16 60 03/13/24 22:30 36.6 C 63 22 135/74 92 O2 Del Method O2 Flow Rate 03/14/24 07:33 03/14/24 07:18 Nasal Cannula 03/14/24 03:13 Nasal Cannula 3 03/13/24 23:16 03/13/24 22:30 Nasal Cannula 3 Laboratory Results CBC 03/14/24 Range/Units 05:37 WBC 8.50 (4.8-10.8) K/ul RBC 3.79 L (4.20-5.40) M/uL Hgb 10.8 L (12.0-16.0) g/dl Hct 34.6 L (37.0-47.0) % Plt Count 218 (130-400) K/uL Neut # (Auto) 5.61 (1.40-6.50) K/uL Lymph # (Auto) 0.99 L (1.20-3.40) K/uL [place] # (Auto) 0.95 H (0.11-0.59) K/uL Eos # (Auto) 0.84 H (0.00-0.50) K/uL Baso # (Auto) 0.08 (0.00-0.20) K/uL Comprehensive Metabolic Panel 03/14/24 03/14/24 Range/Units 05:37 06:53 Sodium 129 L (136-145) mmol/L Potassium TNP 4.8 Chloride 90 L (98-107) mmol/L Carbon Dioxide 35 H (21-32) mmol/L BUN 51 H (6-23) mg/dl Creatinine 2.20 H (0.6-1.2) mg/dl Glucose 141 H (70-99(Fasting)) mg/dl Calcium 9.0 (8.6-10.3) mg/dl Intake and Output 03/13/24 03/14/24 03/14/24 22:59 06:59 14:59 Intake Total 100 / 336 Output Total 200 / 300 Balance 100 / 36 -200 / 36 Intake: Oral 100 / 336 Output: Urine Amount (Catheter) 200 / 300 External 200 / 300 Other: Other Intake Source Sips Weight 122 kg Weight Measurement Method Built in [facility] (4) HTN (hypertension) Hypertension type: unspecified Qualified Code(s): I10 - Essential (primary) hypertension
--- NOTE | 2024-03-14 11:01 | Orthopedic Consultation ---
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 This is a transverse nondisplaced fracture at the level of the inferior aspect of the stem of the tibial component. By history patient had a previous fracture in this area 2021 and this was treated nonsurgically went on to healing to the point where she could walk with a walker without a brace. Reviewed old x-rays in 2021 and there was not complete remodeling of the fracture at that point when patient was lost to follow-up. At this point no surgical treatment recommended. Would put her in a double upright hinged knee brace of Matt or T ROM type brace locked in full extension. Recommend nonweightbearing. Will need DVT prophylaxis. Will need [facility]pc facility versus rehab hospital. Patient refused CT scan which will be helpful to assess extent of the fracture. We can revisit this when her pain management is improved. Will have to follow serial x-rays for now. Will colette-ray in 1 week. History of Present Illness Reason for Consultation: Left knee pain Attending Physician: Bree Sarkar MD History of Present Illness 78-year-old female who was admitted for respiratory failure coronary artery disease chronic anemia and was working with physical therapy when her knee buckled and she had a fall and increased pain in her left knee. Allergies Allergy/AdvReac Type Severity Reaction Status Date / Time fluticasone Allergy Severe WATER ON Verified 03/09/24 18:38 LUNGS, SHORT OF BREATH mold Allergy Severe BLACK Verified 03/09/24 18:38 MOLD--SEE COMMENT salmeterol Allergy Severe WATER ON Verified 03/09/24 18:38 LUNGS, SHORT OF BREATH benzocaine Allergy Unknown Unknown Verified 03/09/24 18:38 Corticosteroids Allergy Anaphylaxis Verified 03/09/24 18:38 (Glucocorticoids) hydrocodone [From Vicodin] AdvReac Intermediate hallucinati Verified 03/09/24 18:38 ons oxycodone AdvReac Intermediate Hallucinati Verified 03/09/24 18:38 ng prednisone AdvReac Intermediate HYPERGLYCEM Verified 03/09/24 18:38 IA propoxyphene AdvReac Intermediate DARVOCET--INSOMNIA, Verified 03/09/24 18:38 EXCESSIVE DRY MOUTH VINYL COVERING Allergy Intermediate Rash Uncoded 03/09/24 18:38 Home Medications Medication Instructions Recorded Confirmed Type clopidogrel 75 mg tablet 75 mg PO QAM 10/01/19 03/09/24 History loratadine 10 mg tablet 10 mg PO QAM 10/01/19 03/09/24 History montelukast 10 mg tablet 10 mg PO QAM 10/01/19 03/09/24 History insulin aspart U-100 100 unit/mL 18 unit subcut TIDM 09/22/21 03/13/24 History (3 mL) subcutaneous pen (Novolog FlexPen U-100 Insulin aspart) rosuvastatin 40 mg tablet 40 mg PO QAM 09/22/21 03/09/24 History albuterol sulfate 2.5 mg/3 mL 2.5 mg inhalation Q4 PRN Wheezing 03/20/22 03/09/24 History (0.083 %) solution for nebulization insulin glargine 100 unit/mL (3 22 unit subcut AMHS 03/20/22 03/13/24 History mL) subcutaneous pen (Lantus Solostar U-100 Insulin) tramadol 50 mg tablet 50 mg PO Q6H PRN severe pain 03/31/22 03/09/24 Rx (scale score 7-10) #25 tabs gabapentin 100 mg capsule 200 mg PO TID 12/12/22 03/09/24 History losartan 25 mg tablet 25 mg PO QAM 12/12/22 03/09/24 History magnesium oxide 400 mg PO QAM 12/12/22 03/09/24 History multivitamin 1 tab PO QAM 12/12/22 03/09/24 History apixaban 5 mg tablet (Eliquis) 5 mg PO BID 10/28/23 03/09/24 History benzonatate 100 mg capsule 100 mg PO TID PRN Cough 10/28/23 03/09/24 History zolpidem 5 mg tablet (Ambien) 5 mg PO HS PRN Sleep 10/28/23 03/09/24 History Prevagen 1 cap PO QAM 12/08/23 03/09/24 History cyanocobalamin (vitamin B-12) 2,000 mcg PO QAM 12/08/23 03/09/24 History 2,000 mcg tablet,extended release (Vitamin B-12 ER) diphenoxylate-atropine 2.5 2 tab PO Q6H PRN Diarrhea 12/08/23 03/09/24 History mg-0.025 mg tablet (Lomotil) polyethylene glycol 3350 17 17 g PO DAILY PRN Constipation 12/08/23 03/09/24 History gram/dose oral powder (Miralax) potassium gluconate 550 mg (90 mg) 550 mg PO QAM 12/08/23 03/09/24 History tablet sennosides 8.6 mg-docusate sodium 1 tab-cap PO QAM PRN Constipation 12/08/23 03/09/24 History 50 mg tablet (Senna-S) metoprolol succinate 50 mg 50 mg PO QAM 03/09/24 03/09/24 History tablet,extended release 24 hr torsemide 20 mg tablet 40 mg PO QAM 03/09/24 03/09/24 History Patient History Medical History Nausea & vomiting Granulomatous interstitial lung disease Physical deconditioning Surgical History History of total knee arthroplasty 2005; bilateral History of cardiac cath 2014 - normal coronary arteries; Dr Jorgensen at [facility] [place] History of revascularization procedure of lower extremity fem/pop artery revascularization RLE; 09/2017; Dr Gill at [facility] [place] Family History Mother Leukemia Son Asthma Brother Stroke Social History Smoking Status: Never smoker Second Hand Exposure: No; Do You Dip or Chew Tobacco: No; Hx Alcohol Use: No Hx Substance Use: No Preferred Language: Persian Communication Ability: Effective Pension Manager Required: No Beliefs That Will Affect Care: None marital status: Current Living Situation: Spouse Current Living Situation Comment: In a 2 story house with Feels Safe at Home: Yes Safety Concerns: Feels Safe At This Time Assistive Devices: Cane, Oxygen - Continuous, Walker and Wheelchair Assistive Devices Comment: dentures and glasses at bedside Review of Systems Review of Systems: Noncontributory to knee injury Physical Exam Musculoskeletal: Ecchymosis around tibial tubercle. Has beginning of hematoma in the anterior knee area. Skin is intact and she has focal tenderness over that area. The compartments are soft and she can dorsiflex her ankle. She has good capillary refill but I cannot feel her pulses well. Foot is warm and well-perfused. Patient has too much pain to check for any instability of the knee. I loosened the knee immobilizer to examine the knee and then reapplied the knee immobilizer. Results & Data Vital Signs (Past 12 Hours) Vital Signs Temp Pulse Pulse Resp BP BP Pulse Ox 03/14/24 10:48 36.4 C L 59 L 20 143/73 H 94 03/14/24 09:33 03/14/24 07:33 62 03/14/24 07:18 36.4 C L 66 20 112/55 L 98 03/14/24 03:13 36.6 C 62 18 114/64 98 03/13/24 23:16 60 O2 Del Method O2 Flow Rate 03/14/24 10:48 Nasal Cannula 3 03/14/24 09:33 Nasal Cannula 3 03/14/24 07:33 03/14/24 07:18 Nasal Cannula 03/14/24 03:13 Nasal Cannula 3 03/13/24 23:16 Diagnostic Findings Tib-fib x-rays reviewed demonstrate a transverse fracture at the tip of the prosthetic of the anterior tibia location with soft tissue swelling anterior to that area. There is some old remodeled callus of the posterior tibia from prior fracture in this area. No implant loosening identified. There is a cemented total knee replacement. Fracture is nondisplaced.
--- NOTE | 2024-03-14 11:04 | Pharmacy Report ---
Pharmacy Glycemic Short Note 2 - Date of Service March 14, 2024 - Glycemic Short BSG Results (Last 24 hours): 03/13/24 03/13/24 03/13/24 11:23 16:11 20:20 Glucose POC Glucose 198 H 210 H 206 H 03/14/24 03/14/24 05:37 07:20 Glucose 141 H POC Glucose 165 H OUTPATIENT ANTIDIABETIC REGIMEN: * Lantus 22 units bid, * Novolog 18 units TIDM * HbA1c: 8.7% (03/10/24) ASSESSMENT: 03/14: * BSGs elevated the last 24h: [id number]/dL. Received 20 units of basal and 26 units of bolus insulin yesterday. * Pt NPO last night at midnight for ortho eval. Diet resumed this afternoon. Other stressors stable. * Lantus 5 units given this AM per hospitalist direction. Continue 10 units BID tonight. No change to Novolog for now. 03/13 * Ms Lamar has been receiving ~30-40 units of insulin per day, with acceptable glycemic control. * Carb ratio was tightened slightly yesterday morning to provide better coverage throughout the day. * No further changes at this time. 03/10 * 78 year old admitted with CHF exacerbation. Pharmacy consulted for glycemic management. Fasting BSG 183 mg/dL this AM, will trial Lantus 10 units bid for now until PO intake known. PLAN FOR INPATIENT GLYCEMIC CONTROL: * Hold outpatient oral diabetes medications * Basal insulin * Lantus 10 units BID * Bolus insulin * NovoLog per scale ACHS or Q6hrs while NPO * Goal Range: Low 110 mg/dL - High 140 mg/dL * Correction Factor: 30 mg/dL/unit * Nutritional / Prandial insulin per carb ratio of 1 unit per 8 grams CHO consumed
[2024-03-14] MEDS: APIXABAN 5 MG TABLET PO SCH (12:12)
[2024-03-14] MEDS: CLOPIDOGREL BISULFATE 75 MG TAB PO ONE (12:40)
[2024-03-14] MEDS: APIXABAN 2.5 MG TAB PO SCH (12:40)
--- NOTE | 2024-03-14 13:39 | Hospitalist Progress Note ---
Date of Service March 14, 2024 Assessment & Plan (1) Acute and chronic respiratory failure, unspecified whether with hypoxia or hypercapnia: (2) CHF exacerbation: Plan: Ms. Lamar is a 78-year-old female with PMHx significant for complete heart block s/p pacemaker placement, nonischemic cardiomyopathy, CAD status post stent placement, CHF systolic and diastolic type, paroxysmal atrial fibrillation on Eliquis, peripheral vascular disease, chronic hypoxic respiratory failure on 3 L of oxygen, asthma, obstructive sleep apnea, diabetes type 2, hypertension, dyslipidemia, CKD stage IV, Hx of DVT who was admitted for evaluation of SOB and thought to be in acute on chronic heart failure exacerbation. There was also concern for pneumonia, however Pulmonology evaluated and felt that the SOB likely iso progressive ILD. Autoimmune work up pending. Course complicated by fall sustained on 03/13 while ambulating with PT. Imaging revealed periprosthetic fracture at level of letft tibal component. Ortho evaluated: no surgical intervention, continue brace in full extension Case Management following for rehab and dispo assistance. #Acute exacerbation of congestive heart failure, combined systolic and diastolic type Usually takes torsemide 40 mg daily along with Toprol-XL and losartan 25 mg daily CXR: Interval progression of the diffuse interstitial/vascular thickening and patchy airspace opacities. This suggests worsening pulmonary edema. A superimposed pneumonia would be difficult to exclude. Lasix 40 mg IV given, continue with it daily Echocardiogram ordered Cardiology, nephrology service was consulted, appreciate recs -IV Lasix 40mg BID, discontinued 03/14 -start torsemide 60mg #ELOY on CKD stage IV fluctuating baseline Will consult nephrology service for assistance with diuretic management -Hold lasix IV, discuss transition to 60mg torsemide with nephro -Repeat Cr #Abnormal CT, c/f progressive ILD -low concern for pneumonia/asthma exacerbation Chest xray suggestive of a superimposed pneumonia CT chest notes possible atypical infection vs. interstitial lung disease vs. hypersensitivity pneumonitis BioFire negative Urine Legionella antigen: Pending Was on empiric IV P.o.ceftriaxone plus doxycycline, discontinued by pulmonology Xopenex 3 times daily prn , hypertonic saline prn Incentive spirometer, flutter valve, Mucinex twice daily Pulmonology consulted, appreciate recs -procal WNL, maintain euvolemia, d/c -Autoimmune work up pending #Chronic hypoxic respiratory failure #Severe Pulm HTN Remains on 3 L of oxygen via nasal cannula, which is her baseline Monitor closely Pulmonology consulted, appreciate recs -follow up autoimmune work up -OP pulm f/u -Euvolemia #Periprosthetic Left knee fracture pt had a fall while working with PT on 03/13 States that her left knee "buckled" XRAY tib fib noting "Periprosthetic fracture about the left tibial component of the knee arthroplasty" Orthopedics was consulted, appreciate recs: Analgesia prn Recommends nonweightbearing Declined CT leg, will readdress if patient will attempt to get imaging to better assess extent of injury #Coronary artery disease, s/p stent placement Troponin 36, 42, 35, essentially flat No cardiac symptoms at this point EKG no signs of acute ischemia or infarct Echocardiogram with stable EF, pulm htn PASP 66mmhg Continue usual Plavix, rosuvastatin, Toprol-XL, losartan #Complete heart block status post pacemaker Denies palpitations, syncope or presyncope Pacemaker in place #Paroxysmal atrial fibrillation Continue metoprolol XL 50 mg daily, Eliquis 5 mg p.o. twice daily #Peripheral vascular disease Continue Plavix, rosuvastatin, Eliquis #Chronic Pain Pt with chronic pain, r shoulder pain Lidocaine patch PRN tylenol Pulmonology recommending minimizing tramadol v discontinuation, however, given above will need to monitor pain control closely and titrate accordingly Continue to monitor #Diabetes type 2, not currently controlled Hgba1c of 8.7, not currently controlled/at goal On glargine and NovoLog at home Glycemic control service consulted #Hypertension Continue metoprolol, losartan #History of DVT On Eliquis #Chronic normocytic anemia Remains stable, CTM Diet: DMII, HH, low sodium, FR DVT prophylaxis: on Eliquis Dispo: PT/OT: likely will need SNF Admission and Anticipated Discharge Date Admission Date: March 09, 2024 Subjective Patient evaluated at bedside early this am--reporting leg pain; discussed patient's ability to wear CPAP--patient states she cannot wear it at all due to discomfort Repeat visit with at bedside reports concern with rehab coverage and patient's fall yesterday Discussed having Case management speak in detail above coverage details with given insurance Patient denies any chest pain, palpitations, SOB or other acute concerns on exam outside of left leg discomfort Physical Exam Constitutional: mild discomfort on exam, large habitus Respiratory: 3L NC, fine crackles, Cardiovascular: irregularly irregular, Tele overnight a fib with PVCs trace pedal edema Musculoskeletal: immobilizer brace on left lower extremity, Results & Data Results & Data Vital Signs (Past 12 Hours) Vital Signs Temp Pulse Pulse Resp BP BP Pulse Ox 03/14/24 10:48 36.4 C L 59 L 20 143/73 H 94 03/14/24 09:33 03/14/24 07:33 62 03/14/24 07:18 36.4 C L 66 20 112/55 L 98 03/14/24 03:13 36.6 C 62 18 114/64 98 O2 Del Method O2 Flow Rate 03/14/24 10:48 Nasal Cannula 3 03/14/24 09:33 Nasal Cannula 3 03/14/24 07:33 03/14/24 07:18 Nasal Cannula 03/14/24 03:13 Nasal Cannula 3 Laboratory Results Short CBC 03/14/24 Range/Units 05:37 WBC 8.50 (4.8-10.8) K/ul Hgb 10.8 L (12.0-16.0) g/dl Hct 34.6 L (37.0-47.0) % Plt Count 218 (130-400) K/uL BMP 03/14/24 03/14/24 05:37 06:53 Sodium 129 L Potassium TNP 4.8 Chloride 90 L Carbon Dioxide 35 H BUN 51 H Creatinine 2.20 H Glucose 141 H Calcium 9.0 Medications Administered Home Medications Medication Instructions Recorded Confirmed Last Taken clopidogrel 75 mg tablet 75 mg PO QA 10/01/19 03/09/24 12/07/23 loratadine 10 mg tablet 10 mg PO QAM 10/01/19 03/09/24 12/07/23 montelukast 10 mg tablet 10 mg PO QAM 10/01/19 03/09/24 12/07/23 insulin aspart U-100 100 unit/mL 18 unit subcut TIDM 09/22/21 03/13/24 12/07/23 (3 mL) subcutaneous pen (Novolog FlexPen U-100 Insulin aspart) rosuvastatin 40 mg tablet 40 mg PO QAM 09/22/21 03/09/24 12/07/23 albuterol sulfate 2.5 mg/3 mL 2.5 mg inhalation Q4 PRN Wheezing 03/20/22 03/09/24 Unknown (0.083 %) solution for nebulization insulin glargine 100 unit/mL (3 22 unit subcut AMHS 03/20/22 03/13/24 12/07/23 mL) subcutaneous pen (Lantus Solostar U-100 Insulin) tramadol 50 mg tablet 50 mg PO Q6H PRN severe pain 03/31/22 03/09/24 Unknown (scale score 7-10) #25 tabs gabapentin 100 mg capsule 200 mg PO TID 12/12/22 03/09/24 12/07/23 losartan 25 mg tablet 25 mg PO QAM 12/12/22 03/09/24 12/07/23 magnesium oxide 400 mg PO QAM 12/12/22 03/09/24 12/07/23 multivitamin 1 tab PO QAM 12/12/22 03/09/24 12/07/23 apixaban 5 mg tablet (Eliquis) 5 mg PO BID 10/28/23 03/09/24 12/07/23 benzonatate 100 mg capsule 100 mg PO TID PRN Cough 10/28/23 03/09/24 Unknown zolpidem 5 mg tablet (Ambien) 5 mg PO HS PRN Sleep 10/28/23 03/09/24 Unknown Prevagen 1 cap PO QAM 12/08/23 03/09/24 12/07/23 cyanocobalamin (vitamin B-12) 2,000 mcg PO QAM 12/08/23 03/09/24 12/07/23 2,000 mcg tablet,extended release (Vitamin B-12 ER) diphenoxylate-atropine 2.5 2 tab PO Q6H PRN Diarrhea 12/08/23 03/09/24 Unknown mg-0.025 mg tablet (Lomotil) polyethylene glycol 3350 17 17 g PO DAILY PRN Constipation 12/08/23 03/09/24 Unknown gram/dose oral powder (Miralax) potassium gluconate 550 mg (90 mg) 550 mg PO QAM 12/08/23 03/09/24 12/07/23 tablet sennosides 8.6 mg-docusate sodium 1 tab-cap PO QAM PRN Constipation 12/08/23 03/09/24 Unknown 50 mg tablet (Senna-S) metoprolol succinate 50 mg 50 mg PO QAM 03/09/24 03/09/24 Unknown tablet,extended release 24 hr torsemide 20 mg tablet 40 mg PO QAM 03/09/24 03/09/24 Unknown Active Medications Generic Name Dose Route Start Last Admin Trade Name Pascualq PRN Reason Stop Dose Admin Acetaminophen 1,000 mg 03/14/24 03:00 03/14/24 12:03 Acetaminophen 500 Mg Tab PO 04/13/24 02:59 1,000 mg Q8H JEY Administration Apixaban 2.5 mg 03/14/24 12:00 03/14/24 12:40 Apixaban 2.5 Mg Tab PO 04/13/24 11:59 2.5 mg BID JEY Administration Benzonatate 100 mg 03/09/24 21:45 03/11/24 16:01 Benzonatate 100 Mg Capsule PO 04/08/24 21:44 100 mg TID PRN Administration Cough Clopidogrel Bisulfate 75 mg 03/10/24 09:00 03/14/24 08:46 Clopidogrel Bisulfate 75 Mg Tab PO 04/09/24 08:59 Not Given DAILY JEY Gabapentin 200 mg 03/09/24 21:00 03/14/24 08:48 Gabapentin 100 Mg Cap PO 04/08/24 20:59 200 mg TID JEY Administration Guaifenesin/Dextromethorphan 10 ml 03/11/24 14:00 03/14/24 13:30 Guaifenesin/Dextrom Syrup 200mg/20mg 10ml Udc PO 04/10/24 13:59 Not Given Q8 JEY Insulin Aspart 0 units 03/09/24 21:00 03/14/24 12:39 Insulin Aspart Per Unit Charge SC 04/08/24 20:59 2 units ACHS JEY Administration Lidocaine 1 patch 03/12/24 17:30 03/13/24 21:53 Lidocaine 5% 1 Patch TD 04/11/24 17:29 1 patch HS JEY Administration Loratadine 10 mg 03/10/24 09:00 03/14/24 08:47 Loratadine 10 Mg Tab PO 04/09/24 08:59 10 mg DAILY JEY Administration Losartan Potassium 25 mg 03/10/24 09:00 03/14/24 08:47 Losartan Potassium 25 Mg Tab PO 04/09/24 08:59 25 mg DAILY JEY Administration Metoprolol Succinate 50 mg 03/10/24 09:00 03/14/24 08:47 Metoprolol Succ 50mg Ext Rel Tab PO 04/09/24 08:59 50 mg QAM JEY Administration Miscellaneous 1 each 03/13/24 06:00 03/14/24 08:56 Remove Lidoderm Patch N/A 04/12/24 05:59 1 each DAILY JEY Administration Montelukast Sodium 10 mg 03/10/24 09:00 03/14/24 08:47 Montelukast Sodium 10 Mg Tablet PO 04/09/24 08:59 10 mg DAILY JEY Administration Potassium Citrate 10 meq 03/10/24 09:00 03/10/24 11:22 Potassium Citrate 10 Meq Tab PO 04/09/24 08:59 10 meq Q48H JEY Administration Rosuvastatin Calcium 40 mg 03/10/24 09:00 03/14/24 08:47 Rosuvastatin Calcium 20 Mg Tab PO 04/09/24 08:59 40 mg DAILY JEY Administration (1) Acute and chronic respiratory failure, unspecified whether with hypoxia or hypercapnia Respiratory failure complication: unspecified whether with hypoxia or hypercapnia Qualified Code(s): J96.20 - Acute and chronic respiratory failure, unspecified whether with hypoxia or hypercapnia (2) CHF exacerbation Heart failure type: unspecified Qualified Code(s): I50.9 - Heart failure, unspecified
[2024-03-14] MEDS ORDERED: TORSEMIDE 20 MG TAB PO SCH (14:00)
[2024-03-14] MEDS: HYDROmorphone INJ 0.5 MG/0.5 ML SYR IV PRN (15:57)
[2024-03-14 16:22] LABS: BUN Creatinine Ratio 23.4 (10-20); Calcium 9.2 mg/dl (8.6-10.3); Est GFR (African American) 23.8 ml/min; Est GFR (Non-African American) 20.6 ml/min; Potassium 4.9 mmol/L (3.5-5.1)
--- NOTE | 2024-03-14 16:26 | CT Scan Report ---
CT knee LT wo con CLINICAL HISTORY: periprosthetic tibia fracture around TKA TECHNIQUE: Multidetector row helical CT of the left knee was performed without intravenous contrast. Coronal and sagittal reformations were obtained. Automated dose lowering techniques and/or adjustment according to patient size were utilized for this examination. CT DOSE: 722.03 mGy.cm Comparison: Comparison is made to tibia and fibular radiograph 03/13/2024 FINDINGS: Nondisplaced tibial fracture is seen involving the stem of the tibial component of the total knee art hroplasty. No joint effusion is seen. Soft tissue swelling is seen. IMPRESSION: Nondisplaced periprosthetic tibial fracture. ACT 112: Negative or not required by law. Electronically signed by: Mahesh Evans M.D. 03/14/2024 4:25 PM
--- NOTE | 2024-03-14 17:31 | Nephrology Progress Note ---
Date of Service March 14, 2024 Assessment & Plan (1) Acute kidney injury superimposed on chronic kidney disease: Plan: stable stage 1 nonoliguric ELOY on CKD 3B. hard to pinpoint baseline creat but maybe slightly higher than her baseline. CKD 3-4 w/ fluctuating baseline, most recent OP value 1.7; has had CKD 4 in past. urine appears active. But nothing to suggest GN of any type. former pt of Dr Olguin -cont lasix as below for now daily bmp, mag I and O charting. >Can continue Losartan for now but may need to hold -urocit on hold since 03/10 given borderline high k - continue >added UA as she's not had one this admission (2) Chronic hyponatremia: Plan: chronic (eg present > 48 hrs) hyponatremia moderate and progressing over past few days though stable on repeat lab this afternoon. certainly not floridly overloaded > at her baseline 02 need and no edema. was wnl on arrival and no prior hx of sustained hyponatremia in [facility]. ?relation to pain or to decreased po in hospital or possibly she's dry after aggressive diuresis >for recheck bmp this PM along w/ serum osms, urine osms/electrolytes >> osmolality serum wnl/high normal; urine studies pending; sodium stable >for now continue 1.5L FR, bid lasix (3) Acute and chronic respiratory failure, unspecified whether with hypoxia or hypercapnia: Plan: Primary reason and appears both Pulmonary and cardiac. However she does not appear in much distress. On same o2 as home. pulmonary evaluated and signed off At home takes torsemide 40 daily. s/p Abx for multifocal pneumonia >> contlasix 40 iv bid (started/upped to this 03/11); just after I saw her she fell, injured leg >> will therefore defer change to torsemide 60 mg daily Admission and Anticipated Discharge Date Admission Date: March 09, 2024 Subjective fell yesterday doing PT and with periprosthetic fracture L tibia; ortho following > for conservative mgt; seen on PM rounds >> states "just don't ask me to move;" no n/v, + poor po; denies sob Review of Systems 2 Review of Systems: All systems reviewed & are unremarkable except as noted in Subjective Physical Exam 2 Constitutional: well developed, well nourished and + morbidly obese; no acute distress Eyes: EOM intact bilaterally ENMT: Ears: no external ear abnormality Nose: no external nose abnormality Mouth: + dry oral mucous membranes Neck: no nuchal rigidity Respiratory: normal respiratory effort Auscultation: + diminished lung sounds (anterior exam); no crackles (anterior exam) and no wheezes (anterior eam) Cardiovascular: Rate/Rhythm: regular rate and regular rhythm Extremities: n o edema Gastrointestinal (Abdomen): Inspection/Auscultation: normal bowel sounds P ercussion/Palpation: abdomen soft; abdomen nontender Musculoskeletal: Extremities: strength 5/5 throughout (brace LLE) Skin: no rashes, warm and dry Psychiatric: Orientation: alert (but tired, keeps eyes closed), oriented x 3 and oriented to person Results & Data Vital Signs (Past 12 Hours) Vital Signs Temp Pulse Pulse Resp BP BP Pulse Ox 03/14/24 16:41 36.8 C 60 16 125/59 L 96 03/14/24 15:36 61 03/14/24 10:48 36.4 C L 59 L 20 143/73 H 94 03/14/24 09:33 03/14/24 07:33 62 03/14/24 07:18 36.4 C L 66 20 112/55 L 98 O2 Del Method O2 Flow Rate 03/14/24 16:41 Nasal Cannula 3 03/14/24 15:36 03/14/24 10:48 Nasal Cannula 3 03/14/24 09:33 Nasal Cannula 3 03/14/24 07:33 03/14/24 07:18 Nasal Cannula Laboratory Results 03/14/24 05:37 03/14/24 15:34 (3) Acute and chronic respiratory failure, unspecified whether with hypoxia or hypercapnia Respiratory failure complication: unspecified whether with hypoxia or hypercapnia Qualified Code(s): J96.20 - Acute and chronic respiratory failure, unspecified whether with hypoxia or hypercapnia
[2024-03-14 20:11] LABS: Urine Potassium 28.9 mmol/L
[2024-03-14] MEDS: LANTUS PER UNIT CHARGE SC SCH (20:56)
[2024-03-14] MEDS: NYSTATIN POWDER 15GM BTL EXT SCH (20:58)
[2024-03-14] MEDS ORDERED: LANTUS PER UNIT CHARGE SC SCH (21:00)
[2024-03-14] MEDS: traMADol HCL 50 MG TABLET PO PRN (23:02)
[2024-03-15 07:02] LABS: Hematocrit (blood only) 32.6 % (37.0-47.0); Hemoglobin 10.2 g/dl (12.0-16.0); Mean Corpuscular Hemoglobin 28.3 pg (25.0-34.0); Mean Corpuscular Hgb Conc 31.3 g/dL (32.0-36.0); Mean Corpuscular Volume 90.6 fL (80.0-100.0); Mean Platelet Volume 9.5 fL (9.4-12.4); Platelet Count 223 K/uL (130-400); RDW Coefficient of Variation 15.3 % (11.5-14.5); RDW Standard Deviation 50.1 fL (36.4-46.3); White Blood Count 8.72 K/ul (4.8-10.8)
[2024-03-15 07:21] LABS: BUN Creatinine Ratio 23.9 (10-20); Creatinine Clr Calc Pharmacy 27.2 ml/min; Est GFR (African American) 25.6 ml/min; Est GFR (Non-African American) 22.1 ml/min; Magnesium 1.9 mg/dl (1.7-2.4); Phosphorus 4.1 mg/dl (2.5-4.9); Potassium 4.9 mmol/L (3.5-5.1)
--- NOTE | 2024-03-15 08:17 | Cardiology Progress Note ---
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 Admitted with acute on chronic heart failure. Symptoms likely due to medication noncompliance, possible dietary noncompliance. - Appears mildly hypervolemic on exam today, on baseline oxygen of 3L - Responding to IV diuresis, nephrology consulted, appreciate recs, diuretics per nephrology - Strict I/Os, monitor daily weights with standing scale if able - Continue Eliquis, Plavix, metoprolol, losartan, rosuvastatin - will need close cardiac follow up as outpatient 03/12/2024: -patient continues with mild hypervolemia on exam. Offers no cardiac complaints. -She remains on her Baseline supplemental O2 with 3LPM. -Patient has [place] external catheter in place. Please obtain strict I&Os, and daily weights, prefer standing scale if able. -Nephrology also on consult and we are appreciative of any/all recommendations with regards to patient's diuretic plan -Goal serum K> 4.0 and Serum mag > 2.0 -patient to continue on Eliquis, Plavix, Metoprolol, Losartan and Crestor. -Will continue to follow. 03/13/2024: -Notation of mild hypervolemia on exam, remains wheezy throughout which is multi-factorial. -She remains on her Baseline supplemental O2 with 3LPM. -Please obtain daily weights, prefer a standing scale and strict I&O. -Nephrology continues to follow and remain appreciative of all recommendations. -Goal serum K> 4.0 and Serum mag > 2.0 -Continues on Lasix 40mg IV BID today, reassess volume status in the AM with consideration of transition to PO diuretics, will await Nephrology's input. -patient to continue on Eliquis, Plavix, Metoprolol, Losartan and Crestor. 03/14/2024: -Volume status continues to improve. Nephrology remains on consult. They have changed patient from Furosemide 40mg IV BID to Torsemide 60mg Daily after patient had sustained her fall with subsequent fracture. -Renal function remains stable. Continue with close monitor of renal function, electrolytes and daily weights. Strict I&O. -Goal serum K>4.0 and Serum Mag > 2.0 -Continue Plavix, Metoprolol, Losartan and Crestor. -Eliquis had been placed on hold after hearing that patient had suffered her fall with sustained fracture. Review of orthopedics consult today states that surgical intervention is not recommended at this time. We will restart Eliquis at this time. 03/15/2024: -Volume status stable. Ongoing expiratory wheezes although continue to improve. -Restarted on PO Torsemide yesterday by nephrology. --Renal function remains stable. Continue with close monitor of renal function, electrolytes and daily weights. Strict I&O. -Goal serum K>4.0 and Serum Mag > 2.0 -Continue Plavix, Eliquis, Metoprolol, Losartan and Crestor. -Ongoing conservative management of left leg fracture, in immobilizer. Continues with intense pain, very tearful at time of visit. Ongoing management per primary team. Case has been discussed with Dr. Brandt. Further recommendations regarding plan of care as per his assessment. I spent a total of 30 minutes on the date of service in preparation, delivery, documentation of the care provided to the patient excluding any time spent in the performance of separately billed services. YAJAIRA Jones [facility] Admission and Anticipated Discharge Date Admission Date: March 09, 2024 Supervising Physician Co-Signing Physician Notes Attending attestation: Case reviewed with the advanced practitioner. I have personally performed a history and physical examination on the patient. I have reviewed the advanced practitioner's documentation on the date of service referenced in note, and I agree with, and take responsibility for the plan of care. Continue Eliquis 2.5 mg twice daily DC IV furosemide 40 mg IV BID, resume torsemide , increased dose of 60 mg daily. I spent a total of 20 minutes coordinating, documenting, and providing care for this patient excluding time spent in the performance of separately billed services or time spent by another provider. Jese Brandt, Subjective 03/15/2024: Patient seen and examined in follow up today. Feeling ok from a cardiac perspective. Denies any chest pain, pressure, palpitations, no shortness of breath, or edema. Labs, vitals, diagnostics, telemetry and documentation reviewed. Telemetry reviewed showing Paced. rates 60's. -1050cc fluid balance. -4kg weight loss per I&O recordings. Review of Systems Review of Systems: All systems reviewed & are unremarkable except as noted in HPI & below Physical Exam Constitutional: + obese and cooperative; no acute distre ss and not ill appearing Neck: normal visual inspection and trachea midline Respiratory: normal respiratory effort; no respiratory distress, no labored breathing and no cough Auscultation: + diminished lung sounds (bilateral bases ) and + wheezes (faint expiratory wheezes throughout ); no crackles, no rales and no rhonchi Cardiovascular: Rate/Rhythm: + irregularly irregular Heart Sounds: normal S1 and normal S2; no murmur Vessels: dorsalis pedis pulses present; no JVD Extremities: + edema (trace BLE) Skin: no rashes, warm and dry Psychiatric: Orientation: alert (drowsy, but awakens to verbal stimuli ) and oriented x 3 Affect: + flat affect Results & Data Vital Signs (Past 12 Hours) Vital Signs Temp Pulse Pulse Resp BP BP Pulse Ox 03/15/24 07:47 37.0 C 61 18 136/74 96 03/15/24 01:58 37.1 C 59 L 18 165/75 H 98 03/14/24 22:37 37 C 57 L 16 143/54 H 99 03/14/24 22:16 60 O2 Del Method O2 Flow Rate 03/15/24 07:47 Nasal Cannula 3 03/15/24 01:58 Nasal Cannula 3 03/14/24 22:37 Nasal Cannula 3 03/14/24 22:16 Laboratory Results CBC 03/15/24 Range/Units 06:06 WBC 8.72 (4.8-10.8) K/ul RBC 3.60 L (4.20-5.40) M/uL Hgb 10.2 L (12.0-16.0) g/dl Hct 32.6 L (37.0-47.0) % Plt Count 223 (130-400) K/uL Comprehensive Metabolic Panel 03/14/24 03/15/24 Range/Units 15:34 06:06 Sodium 129 L 132 L (136-145) mmol/L Potassium 4.9 4.9 (3.5-5.1) mmol/L Chloride 89 L 91 L (98-107) mmol/L Carbon Dioxide 35 H 36 H (21-32) mmol/L BUN 52 H 50 H (6-23) mg/dl Creatinine 2.22 H 2.09 H (0.6-1.2) mg/dl Glucose 186 H 126 H (70-99(Fasting)) mg/dl Calcium 9.2 9.0 (8.6-10.3) mg/dl Intake and Output 03/14/24 03/15/24 03/15/24 22:59 06:59 14:59 Intake Total 240 / 240 Output Total 600 / 1050 250 / 1050 Balance -600 / -1050 -250 / -1050 240 / 240 Intake: Oral 240 / 240 Output: Urine 300 / 300 Urine Amount (Catheter) 300 / 750 250 / 750 External 300 / 750 250 / 750 Other: Other Intake Source sips sips Weight 119.3 kg Weight Measurement Method Built in [facility] (4) HTN (hypertension) Hypertension type: unspecified Qualified Code(s): I10 - Essential (primary) hypertension
[2024-03-15] MEDS: FUROSEMIDE 40 MG/4 ML VIAL IV SCH (09:15)
--- NOTE | 2024-03-15 11:47 | Hospitalist Progress Note ---
Date of Service March 15, 2024 Assessment & Plan (1) Acute and chronic respiratory failure, unspecified whether with hypoxia or hypercapnia: (2) CHF exacerbation: Plan: Ms. Lamar is a 78-year-old female with PMHx significant for complete heart block s/p pacemaker placement, nonischemic cardiomyopathy, CAD status post stent placement, CHF systolic and diastolic type, paroxysmal atrial fibrillation on Eliquis, peripheral vascular disease, chronic hypoxic respiratory failure on 3 L of oxygen, asthma, obstructive sleep apnea, diabetes type 2, hypertension, dyslipidemia, CKD stage IV, Hx of DVT who was admitted for evaluation of SOB and thought to be in acute on chronic heart failure exacerbation. There was also concern for pneumonia, however Pulmonology evaluated and felt that the SOB likely iso progressive ILD. Autoimmune work up pending. Course complicated by fall sustained on 03/13 while ambulating with PT. Imaging revealed periprosthetic fracture at level of left tibial component. Ortho evaluated: no surgical intervention, continue brace in full extension Patient will transition to PO diuretic in am and will be medically stable for dispo to rehab. Case Management following for rehab and dispo assistance. #Acute exacerbation of congestive heart failure, combined systolic and diastolic type Usually takes torsemide 40 mg daily along with Toprol-XL and losartan 25 mg daily CXR: Interval progression of the diffuse interstitial/vascular thickening and patchy airspace opacities. This suggests worsening pulmonary edema. A superimposed pneumonia would be difficult to exclude. Lasix 40 mg IV given, continue with it daily Echocardiogram ordered Cardiology, nephrology service was consulted, appreciate recs -IV Lasix 40mg BID, discontinued 03/14 -start torsemide 60mg qam #ELOY on CKD stage IV fluctuating baseline urocit on hold Will consult nephrology service for assistance with diuretic management -Hold lasix IV, discuss transition to 60mg torsemide with nephro -Repeat Cr -ua ordered #chronic hyponatremia chronic given time > 48 hours per nephrology, however, new on admission and likely multifactorial Repeat bmp continue fr 1.5L torsemide 60mg am #Abnormal CT, c/f progressive ILD -low concern for pneumonia/asthma exacerbation Chest xray suggestive of a superimposed pneumonia CT chest notes possible atypical infection vs. interstitial lung disease vs. hypersensitivity pneumonitis BioFire negative Urine Legionella antigen: Pending Was on empiric IV P.o.ceftriaxone plus doxycycline, discontinued by pulmonology Xopenex 3 times daily prn , hypertonic saline prn Incentive spirometer, flutter valve, Mucinex twice daily Pulmonology consulted, appreciate recs -procal WNL, maintain euvolemia, d/c -Autoimmune work up pending #Chronic hypoxic respiratory failure #Severe Pulm HTN Remains on 3 L of oxygen via nasal cannula, which is her baseline Monitor closely Pulmonology consulted, appreciate recs -follow up autoimmune work up -OP pulm f/u -Euvolemia #Periprosthetic Left knee fracture pt had a fall while working with PT on 03/13 States that her left knee "buckled" XRAY tib fib noting "Periprosthetic fracture about the left tibial component of the knee arthroplasty" Orthopedics was consulted, appreciate recs: Analgesia prn Recommends nonweightbearing CT leg with nondisplaced fracture plan for xray in 1 week #Coronary artery disease, s/p stent placement Troponin 36, 42, 35, essentially flat No cardiac symptoms at this point EKG no signs of acute ischemia or infarct Echocardiogram with stable EF, pulm htn PASP 66mmhg Continue usual Plavix, rosuvastatin, Toprol-XL, losartan #Complete heart block status post pacemaker Denies palpitations, syncope or presyncope Pacemaker in place #Paroxysmal atrial fibrillation Continue metoprolol XL 50 mg daily, Eliquis 5 mg p.o. twice daily #Peripheral vascular disease Continue Plavix, rosuvastatin, Eliquis #Chronic Pain Pt with chronic pain, r shoulder pain Lidocaine patch PRN tylenol Pulmonology recommending minimizing tramadol v discontinuation, however, given above will need to monitor pain control closely and titrate accordingly Continue to monitor #Diabetes type 2, not currently controlled Hgba1c of 8.7, not currently controlled/at goal On glargine and NovoLog at home Glycemic control service consulted #Hypertension Continue metoprolol, losartan #History of DVT On Eliquis #Chronic normocytic anemia Remains stable, CTM Diet: DMII, HH, low sodium, FR DVT prophylaxis: on Eliquis Dispo: PT/OT: likely will need SNF; possible dispo tomorrow Admission and Anticipated Discharge Date Admission Date: March 09, 2024 Subjective Patient reported concerns over her medications this morning, but when inquired about the concerns she notes that she is unsure and "just feels tired" Discussed medications and reviewed administrations this morning with her at bedside. States pain fluctuates, but is better than day prior. Discussed that pending final recommendations from nephrology prior to dispo, verbalized understanding Physical Exam Constitutional: WD/WN, vitals as above Respiratory: normal respiratory effort, lungs clear to auscultation Cardiovascular: RRR, no murmur, no edema Musculoskeletal: left leg in fixed brace Results & Data Results & Data Vital Signs (Past 12 Hours) Vital Signs Temp Pulse Resp BP BP Pulse Ox O2 Del Method 03/15/24 11:38 36.7 C 59 L 18 135/60 94 Nasal Cannula 03/15/24 07:47 37.0 C 61 18 136/74 96 Nasal Cannula 03/15/24 01:58 37.1 C 59 L 18 165/75 H 98 Nasal Cannula O2 Flow Rate 03/15/24 11:38 3 03/15/24 07:47 3 03/15/24 01:58 3 Laboratory Results Short CBC 03/15/24 Range/Units 06:06 WBC 8.72 (4.8-10.8) K/ul Hgb 10.2 L (12.0-16.0) g/dl Hct 32.6 L (37.0-47.0) % Plt Count 223 (130-400) K/uL BMP 03/14/24 03/15/24 15:34 06:06 Sodium 129 L 132 L Potassium 4.9 4.9 Chloride 89 L 91 L Carbon Dioxide 35 H 36 H BUN 52 H 50 H Creatinine 2.22 H 2.09 H Glucose 186 H 126 H Calcium 9.2 9.0 Medications Administered Home Medications Medication Instructions Recorded Confirmed Last Taken clopidogrel 75 mg tablet 75 mg PO QAM 10/01/19 03/09/24 12/07/23 loratadine 10 mg tablet 10 mg PO QAM 10/01/19 03/09/24 12/07/23 montelukast 10 mg tablet 10 mg PO QAM 10/01/19 03/09/24 12/07/23 insulin aspart U-100 100 unit/mL 18 unit subcut TIDM 09/22/21 03/13/24 12/07/23 (3 mL) subcutaneous pen (Novolog FlexPen U-100 Insulin aspart) rosuvastatin 40 mg tablet 40 mg PO QAM 09/22/21 03/09/24 12/07/23 albuterol sulfate 2.5 mg/3 mL 2.5 mg inhalation Q4 PRN Wheezing 03/20/22 03/09/24 Unknown (0.083 %) solution for nebulization insulin glargine 100 unit/mL (3 22 unit subcut AMHS 03/20/22 03/13/24 12/07/23 mL) subcutaneous pen (Lantus Solostar U-100 Insulin) tramadol 50 mg tablet 50 mg PO Q6H PRN severe pain 03/31/22 03/09/24 Unknown (scale score 7-10) #25 tabs gabapentin 100 mg capsule 200 mg PO TID 12/12/22 03/09/24 12/07/23 losartan 25 mg tablet 25 mg PO QAM 12/12/22 03/09/24 12/07/23 magnesium oxide 400 mg PO QAM 12/12/22 03/09/24 12/07/23 multivitamin 1 tab PO QAM 12/12/22 03/09/24 12/07/23 apixaban 5 mg tablet (Eliquis) 5 mg PO BID 10/28/23 03/09/24 12/07/23 benzonatate 100 mg capsule 100 mg PO TID PRN Cough 10/28/23 03/09/24 Unknown zolpidem 5 mg tablet (Ambien) 5 mg PO HS PRN Sleep 10/28/23 03/09/24 Unknown Prevagen 1 cap PO QAM 12/08/23 03/09/24 12/07/23 cyanocobalamin (vitamin B-12) 2,000 mcg PO QAM 12/08/23 03/09/24 12/07/23 2,000 mcg tablet,extended release (Vitamin B-12 ER) diphenoxylate-atropine 2.5 2 tab PO Q6H PRN Diarrhea 12/08/23 03/09/24 Unknown mg-0.025 mg tablet (Lomotil) polyethylene glycol 3350 17 17 g PO DAILY PRN Constipation 12/08/23 03/09/24 Unknown gram/dose oral powder (Miralax) potassium gluconate 550 mg (90 mg) 550 mg PO QAM 12/08/23 03/09/24 12/07/23 tablet sennosides 8.6 mg-docusate sodium 1 tab-cap PO QAM PRN Constipation 12/08/23 03/09/24 Unknown 50 mg tablet (Senna-S) metoprolol succinate 50 mg 50 mg PO QAM 03/09/24 03/09/24 Unknown tablet,extended release 24 hr torsemide 20 mg tablet 40 mg PO QAM 03/09/24 03/09/24 Unknown Active Medications Generic Name Dose Route Start Last Admin Trade Name Freq PRN Reason Stop Dose Admin Acetaminophen 1,000 mg 03/14/24 03:00 03/15/24 14:21 Acetaminophen 500 Mg Tab PO 04/13/24 02:59 1,000 mg Q8H JEY Administration Apixaban 2.5 mg 03/14/24 12:00 03/15/24 09:14 Apixaban 2.5 Mg Tab PO 04/13/24 11:59 2.5 mg BID JEY Administration Benzonatate 100 mg 03/09/24 21:45 03/11/24 16:01 Benzonatate 100 Mg Capsule PO 04/08/24 21:44 100 mg TID PRN Administration Cough Clopidogrel Bisulfate 75 mg 03/10/24 09:00 03/15/24 09:09 Clopidogrel Bisulfate 75 Mg Tab PO 04/09/24 08:59 75 mg DAILY JEY Administration Furosemide 40 mg 03/15/24 09:00 03/15/24 09:15 Furosemide 40 Mg/4 Ml Vial IV 04/14/24 08:59 40 mg BID17 JEY Administration Gabapentin 200 mg 03/09/24 21:00 03/15/24 14:24 Gabapentin 100 Mg Cap PO 04/08/24 20:59 200 mg TID JEY Administration Guaifenesin/Dextromethorphan 10 ml 03/11/24 14:00 03/15/24 14:24 Guaifenesin/Dextrom Syrup 200mg/20mg 10ml Udc PO 04/10/24 13:59 10 ml Q8 JEY Administration Hydromorphone HCl 0.5 mg 03/14/24 13:00 03/14/24 15:57 Hydromorphone Inj 0.5 Mg/0.5 Ml Syr IV 03/27/24 19:15 0.5 mg Q6H PRN Administration Severe Pain (Scale 7, 8, 9,10) Insulin Aspart 0 units 03/09/24 21:00 03/15/24 14:18 Insulin Aspart Per Unit Charge SC 04/08/24 20:59 3 units ACHS JEY Administration Insulin Glargine 10 units 03/14/24 21:00 03/15/24 09:02 Lantus Per Unit Charge SC 04/09/24 20:59 10 units BID JEY Administration Lidocaine 1 patch 03/12/24 17:30 03/14/24 20:57 Lidocaine 5% 1 Patch TD 04/11/24 17:29 1 patch HS JEY Administration Loratadine 10 mg 03/10/24 09:00 03/15/24 09:15 Loratadine 10 Mg Tab PO 04/09/24 08:59 10 mg DAILY EJY Administration Losartan Potassium 25 mg 03/10/24 09:00 03/15/24 09:17 Losartan Potassium 25 Mg Tab PO 04/09/24 08:59 25 mg DAILY JEY Administration Metoprolol Succinate 50 mg 03/10/24 09:00 03/15/24 09:17 Metoprolol Succ 50mg Ext Rel Tab PO 04/09/24 08:59 50 mg QAM JEY Administration Miscellaneous 1 each 03/13/24 06:00 03/15/24 14:20 Remove Lidoderm Patch N/A 04/12/24 05:59 1 each DAILY JEY Administration Montelukast Sodium 10 mg 03/10/24 09:00 03/15/24 09:17 Montelukast Sodium 10 Mg Tablet PO 04/09/24 08:59 10 mg DAILY JEY Administration Nystatin 1 appln 03/14/24 21:00 03/15/24 09:18 Nystatin Powder 15gm Btl EXT 04/13/24 20:59 45 appln BID JEY Administration Potassium Citrate 10 meq 03/10/24 09:00 03/10/24 11:22 Potassium Citrate 10 Meq Tab PO 04/09/24 08:59 10 meq Q48H JEY Administration Rosuvastatin Calcium 40 mg 03/10/24 09:00 03/15/24 09:15 Rosuvastatin Calcium 20 Mg Tab PO 04/09/24 08:59 40 mg DAILY JEY Administration Tramadol HCl 50 mg 03/14/24 13:00 03/15/24 08:58 Tramadol Hcl 50 Mg Tablet PO 04/08/24 20:22 50 mg Q6H PRN Administration severe pain (scale score 7-10) (1) Acute and chronic respiratory failure, unspecified whether with hypoxia or hypercapnia Respiratory failure complication: unspecified whether with hypoxia or hypercapnia Qualified Code(s): J96.20 - Acute and chronic respiratory failure, unspecified whether with hypoxia or hypercapnia (2) CHF exacerbation Heart failure type: unspecified Qualified Code(s): I50.9 - Heart failure, unspecified
--- NOTE | 2024-03-15 15:23 | Nephrology Progress Note ---
Date of Service March 15, 2024 Assessment & Plan (1) Acute kidney injury superimposed on chronic kidney disease: Plan: stable stage 1 nonoliguric ELOY on CKD 3B. hard to pinpoint baseline creat but maybe slightly higher than her baseline. CKD 3-4 w/ fluctuating baseline, most recent OP value 1.7; has had CKD 4 in past. urine appears active. But nothing to suggest GN of any type. former pt of Dr Olguin -cont lasix as below for now daily bmp, mag I and O charting. >Can continue Losartan for now but may need to hold -urocit on hold since 03/10 given borderline high k - continue >added UA as she's not had one this admission (2) Chronic hyponatremia: Plan: chronic (eg present > 48 hrs) isoosmolar hyponatremia moderate and progressing over past few days to low point 129 03/14 AM though somewhat improved thi lisandro. certainly not floridly overloaded > at her baseline 02 need and no edema. was wnl on arrival and no prior hx of sustained hyponatremia in [facility]. ?relation to pain or to decreased po in hospital or possibly she's dry after aggressive diuresis. urine /serum studies most c/w mild vol OL >for now continue 1.5L FR > changed bid lasix to torsemide in AM 60 mg daily bmp (3) Acute and chronic respiratory failure, unspecified whether with hypoxia or hypercapnia: Plan: Primary reason and appears both Pulmonary and cardiac. However she does not appear in much distress. On same o2 as home. pulmonary evaluated and signed off At home takes torsemide 40 daily. s/p Abx for multifocal pneumonia >> after extended course IV lasix will change to torsemide 60 mg daily Admission and Anticipated Discharge Date Admission Date: March 09, 2024 Subjective tired, w/ lassitude > not very willing to do ROS; endorses pain legs, denies worse sob. no edema. Review of Systems 2 Review of Systems: All systems reviewed & are unremarkable except as noted in Subjective Physical Exam 2 Constitutional: well developed, well nourished and + morbidly obese; no acute distress (on 3L02 NC; ) Eyes: EOM intact bilaterally ENMT: Ears: no external ear abnormality Nose: no external nose abnormality Mouth: + dry oral mucous membranes Neck: no nuchal rigidity Respiratory: normal respiratory effort Auscultation: + diminished lung sounds (anterior exam); no crackles (anterior exam) and no wheezes (anterior eam) Cardiovascular: Rate/Rhythm: regular rate and regular rhythm Extremities: n o edema Gastrointestinal (Abdomen): Inspection/Auscultation: normal bowel sounds P ercussion/Palpation: abdomen soft; abdomen nontender Musculoskeletal: Extremities: strength 5/5 throughout (brace LLE; no edma) Skin: no rashes, warm and dry Psychiatric: Orientation: alert (but tired, keeps eyes closed), oriented x 3 and oriented to person Results & Data Vital Signs (Past 12 Hours) Vital Signs Temp Pulse Resp BP Pulse Ox O2 Del Method O2 Flow Rate 03/15/24 15:12 36.9 C 72 18 117/64 90 Nasal Cannula 3 03/15/24 11:38 36.7 C 59 L 18 135/60 94 Nasal Cannula 3 03/15/24 07:47 37.0 C 61 18 136/74 96 Nasal Cannula 3 Laboratory Results 03/15/24 06:06 03/15/24 06:06 (3) Acute and chronic respiratory failure, unspecified whether with hypoxia or hypercapnia Respiratory failure complication: unspecified whether with hypoxia or hypercapnia Qualified Code(s): J96.20 - Acute and chronic respiratory failure, unspecified whether with hypoxia or hypercapnia
[2024-03-16] MEDS ORDERED: TORSEMIDE 20 MG TAB PO SCH (09:00)
[2024-03-16] MEDS ORDERED: COUGH DROP (SUGAR FREE) LOZ 24 LOZ/1 BOX BUCCAL PRN (11:00)
--- NOTE | 2024-03-16 15:38 | Discharge Summary ---
Discharge Summary Date of Service March 16, 2024 Principal Dx & Hospital Course #1 = Principal Diagnosis (1) Acute and chronic respiratory failure, unspecified whether with hypoxia or hypercapnia: (2) CHF exacerbation: Ms. Lamar is a 78-year-old female with PMHx significant for complete heart block s/p pacemaker placement, nonischemic cardiomyopathy, CAD status post stent placement, CHF systolic and diastolic type, paroxysmal atrial fibrillation on Eliquis, peripheral vascular disease, chronic hypoxic respiratory failure on 3 L of oxygen, asthma, obstructive sleep apnea, diabetes type 2, hypertension, dyslipidemia, CKD stage IV, Hx of DVT who was admitted for evaluation of SOB and thought to be in acute on chronic heart failure exacerbation. There was also concern for pneumonia, however Pulmonology evaluated and felt that the SOB likely iso progressive ILD. Autoimmune work up pending and patient will have outpatient pulmonary follow up established upon discharge. Course complicated by fall sustained on 03/13 while ambulating with PT. Imaging revealed periprosthetic fracture at level of left tibial component. Ortho evaluated: no surgical intervention, continue brace in full extension and non weightbearing on LLE. Patient successfully transitioned to PO torsemide with improvement in hyponatremia and plateaued renal function. On day of discharge, patient endorses chronic concerns, including dry throat improved with cough drop. Ch placed overnight for concerns of retention. Patient without other urinary symptoms. UA pending and will follow up on results with plan for void trial in 1 week. #Acute exacerbation of congestive heart failure, combined systolic and diastolic type Usually takes torsemide 40 mg daily along with Toprol-XL and losartan 25 mg daily CXR: Interval progression of the diffuse interstitial/vascular thickening and patchy airspace opacities. This suggests worsening pulmonary edema. A superimposed pneumonia would be difficult to exclude. Lasix 40 mg IV given, continue with it daily Echocardiogram ordered Cardiology, nephrology service was consulted, appreciate recs -IV Lasix 40mg BID, discontinued 03/14 -Continue torsemide 60mg qam #ELOY on CKD stage IV fluctuating baseline urocit on hold Will consult nephrology service for assistance with diuretic management -Hold lasix IV, discuss transition to 60mg torsemide with nephro -Repeat Cr -ua ordered #chronic hyponatremia chronic given time > 48 hours per nephrology, however, new on admission and likely multifactorial continue fr 1.5L torsemide 60mg am improved this am #Abnormal CT, c/f progressive ILD -low concern for pneumonia/asthma exacerbation Chest xray suggestive of a superimposed pneumonia CT chest notes possible atypical infection vs. interstitial lung disease vs. hypersensitivity pneumonitis BioFire negative Urine Legionella antigen: Pending Was on empiric IV P.o.ceftriaxone plus doxycycline, discontinued by pulmonology Xopenex 3 times daily prn , hypertonic saline prn Incentive spirometer, flutter valve, Mucinex twice daily Pulmonology consulted, appreciate recs -procal WNL, maintain euvolemia, d/c -Autoimmune work up pending -plan for op follow up #Chronic hypoxic respiratory failure #Severe Pulm HTN Remains on 3 L of oxygen via nasal cannula, which is her baseline Monitor closely Pulmonology consulted, appreciate recs -follow up autoimmune work up -OP pulm f/u -Euvolemia #Periprosthetic Left knee fracture pt had a fall while working with PT on 03/13 States that her left knee "buckled" XRAY tib fib noting "Periprosthetic fracture about the left tibial component of the knee arthroplasty" Orthopedics was consulted, appreciate recs: Analgesia prn Recommends nonweightbearing CT leg with nondisplaced fracture plan for xray in 1 week #Coronary artery disease, s/p stent placement Troponin 36, 42, 35, essentially flat No cardiac symptoms at this point EKG no signs of acute ischemia or infarct Echocardiogram with stable EF, pulm htn PASP 66mmhg Continue usual Plavix, rosuvastatin, Toprol-XL, losartan #Complete heart block status post pacemaker Denies palpitations, syncope or presyncope Pacemaker in place #Paroxysmal atrial fibrillation Continue metoprolol XL 50 mg daily, Eliquis 2.5 mg p.o. twice daily given renal function #Peripheral vascular disease Continue Plavix, rosuvastatin, Eliquis #Chronic Pain Pt with chronic pain, r shoulder pain Lidocaine patch PRN tylenol Pulmonology recommending minimizing tramadol v discontinuation, however, given above will need to monitor pain control closely and titrate accordingly Continue to monitor #Diabetes type 2, not currently controlled Hgba1c of 8.7, not currently controlled/at goal On glargine and NovoLog at home Glycemic control service consulted #Hypertension Continue metoprolol, losartan #History of DVT On Eliquis #Chronic normocytic anemia Remains stable, CTM Notes For Next Care Provider Autoimmune panel pending Medication Changes From Visit Eliquis to 2.5mg BID Torsemide to 60mg daily Admission HPI Per Admitting Provider 78-year-old female with history of chronic hypoxic respiratory failure on 3 L of oxygen, asthma, obstructive sleep apnea, coronary disease, status post stent, CHF systolic and diastolic type, paroxysmal atrial fibrillation on Eliquis, peripheral vascular disease, diabetes type 2, hypertension, dyslipidemia, CKD stage IV, DVT, peripheral vascular disease, presenting for progressive shortness of breath x 1 week. Patient reportssShortness of breath which began earlier this year but seems to have worsened for the past 1 to 2 weeks. She is also experiencing cough productive of yellow, occasionally brown sputum, but no fevers or chills, chest pain. 1 week history of progressive shortness of breath associated with cough. At the ER, noted to be saturating 100% on 3 L of oxygen. Physical exam revealing crackles at the bases, bilateral lower extremity edema. Chest x-ray showing pulmonary edema versus pneumonia Bio fire negative BNP pending Troponin 36, 42 EKG no signs of acute ischemia or infarct On exam patient seen resting in bed, on 3 L of O2 via nasal cannula, comfortable, not in distress. States breathing starting to improve since admission. No active shortness of breath, chest pain, dizziness, nausea vomiting during my examination Admission Exam Per Admitting Provider General- oriented x 3, not in distress, speaks in sentences with no effort or accessory muscle use Eyes- anicteric Neck- no JVD Lungs- Mild crackles bilateral bases, no wheezing, good air entry bilaterally Heart- normal rate, regular rhythm; no murmurs Abdomen- normal bowel sounds, nondistended, soft, nontender Extremities-Mild bilateral lower extremity edema, no erythema/warmth/tenderness no calf tenderness Neuro- alert, oriented x 3; no gross focal neurologic deficits Skin- warm & dry Discharge Exam Constitutional WD/WN, vitals as above Respiratory stable 3 L O2 requirement, fine crackles, c/w prior exam diminished overall 2/2 habitus Cardiovascular irregularly irregular Updated Medication List Medication Instructions Recorded Confirmed Type clopidogrel 75 mg tablet 75 mg PO QAM 10/01/19 03/09/24 History loratadine 10 mg tablet 10 mg PO QAM 10/01/19 03/09/24 History montelukast 10 mg tablet 10 mg PO QAM 10/01/19 03/09/24 History insulin aspart U-100 100 unit/mL 18 unit subcut TIDM 09/22/21 03/13/24 History (3 mL) subcutaneous pen (Novolog FlexPen U-100 Insulin aspart) rosuvastatin 40 mg tablet 40 mg PO QAM 09/22/21 03/09/24 History albuterol sulfate 2.5 mg/3 mL 2.5 mg inhalation Q4 PRN Wheezing 03/20/22 03/09/24 History (0.083 %) solution for nebulization insulin glargine 100 unit/mL (3 22 unit subcut [facility]HS 03/20/22 03/13/24 History mL) subcutaneous pen (Lantus Solostar U-100 Insulin) tramadol 50 mg tablet 50 mg PO Q6H PRN severe pain 03/31/22 03/09/24 Rx (scale score 7-10) #25 tabs gabapentin 100 mg capsule 200 mg PO TID 12/12/22 03/09/24 History losartan 25 mg tablet 25 mg PO QAM 12/12/22 03/09/24 History magnesium oxide 400 mg PO QAM 12/12/22 03/09/24 History multivitamin 1 tab PO QAM 12/12/22 03/09/24 History benzonatate 100 mg capsule 100 mg PO TID PRN Cough 10/28/23 03/09/24 History zolpidem 5 mg tablet (Ambien) 5 mg PO HS PRN Sleep 10/28/23 03/09/24 History Prevagen 1 cap PO QAM 12/08/23 03/09/24 History cyanocobalamin (vitamin B-12) 2,000 mcg PO QAM 12/08/23 03/09/24 History 2,000 mcg tablet,extended release (Vitamin B-12 ER) diphenoxylate-atropine 2.5 2 tab PO Q6H PRN Diarrhea 12/08/23 03/09/24 History mg-0.025 mg tablet (Lomotil) polyethylene glycol 3350 17 17 g PO DAILY PRN Constipation 12/08/23 03/09/24 History gram/dose oral powder (Miralax) potassium gluconate 550 mg (90 mg) 550 mg PO QAM 12/08/23 03/09/24 History tablet sennosides 8.6 mg-docusate sodium 1 tab-cap PO QAM PRN Constipation 12/08/23 03/09/24 History 50 mg tablet (Senna-S) metoprolol succinate 50 mg 50 mg PO QAM 03/09/24 03/09/24 History tablet,extended release 24 hr apixaban 5 mg tablet (Eliquis) 2.5 mg (1/2 x 5 mg) PO BID #0 tabs 03/16/24 03/09/24 Rx torsemide 20 mg tablet 60 mg (3 x 20 mg) PO QAM #90 tabs 03/16/24 Rx Hospital Stay Data Consultations 03/09/24 16:47 ED Decision to Admit Stat 03/09/24 17:29 Consult Nephrology Routine 03/09/24 20:23 Consult Cardiology Routine 03/11/24 11:37 Consult Pulmonology Routine 03/13/24 15:09 Consult Orthopedic Surgery Routine Diagnostic Imagining Performed 03/09/24 17:29 CT chest diagnostic wo con Routine 03/14/24 17:01 CT knee LT wo con Urgent Pending Results Patient Have Any Pending Studies at Discharge: Yes (Autoimmune panel ) Discharge Instructions Given to Patient (Per Discharging Provider) You were admitted for acute heart failure exacerbation. You were given IV water pill and transitioned to oral torsemide at 60mg daily rather than 40mg daily. You were evaluated by Pulmonology given progressive oxygen requirement and you were noted to have concerning findings for interstitial lung disease. You will follow up with Pulmonary to discuss antibody labs ordered during your admission. Your course was complicated by a fall with a left lower extremity fracture around the sit of previous fracture near you left knee replacement. You do not require surgical intervention. Please keep knee brace in place at full extension. Continue nonweightbearing on left side. You will be called for appointments to be scheduled Total Time Total Time Spent Total Time Spent (In Minutes): 45
[2024-03-16 17:56] LABS: BUN Creatinine Ratio 24.3 (10-20); Calcium 9.2 mg/dl (8.6-10.3); Creatinine Clr Calc Pharmacy 26.1 ml/min; Est GFR (African American) 24.4 ml/min; Magnesium 1.9 mg/dl (1.7-2.4); Potassium 4.4 mmol/L (3.5-5.1)
[2024-03-16 18:45] LABS: Albumin Globulin Ratio 0.7 (0.9-2); Albumin Level 2.7 gm/dl (3.4-5.0); BUN Creatinine Ratio 23.2 (10-20); Bilirubin,Total 0.3 mg/dl (0.2-1.0); Creatinine Clr Calc Pharmacy 25.9 ml/min; Est GFR (African American) 24.1 ml/min; Est GFR (Non-African American) 20.8 ml/min; Globulin 4.1 gm/dl (2.5-4.0); Potassium 4.6 mmol/L (3.5-5.1); Total Protein 6.8 gm/dl (6.0-8.3)
== END 2024-03-16 15:30 | DRG 291 ==
LOC: ED 13:59 → 4W 17:29 → SUATTDRO 17:29 → 4W 18:40 → 2N 03-14 16:37

== ENCOUNTER 2024-06-20 11:40 | Inpatient (IN) ==
[2024-06-20 12:28] LABS: Base Excess VBG 14.1 mEq/L; HCO3 VBG 42 mmol/L; Oxygen Saturation VBG < 60.0 %; PCO2 VBG 67 mmHg (38-50); PO2 VBG 25 mmHg
[2024-06-20 12:36] LABS: Basophils # (auto) 0.09 K/uL (0.00-0.20); Eosinophils # (auto) 0.69 K/uL (0.00-0.50); Eosinophils % (auto) 7.8 %; Hematocrit (blood only) 31.1 % (37.0-47.0); Hemoglobin 10.3 g/dl (12.0-16.0); Immature Granulocytes # (auto) 0.05 K/uL (0.01-0.20); Immature Granulocytes % (auto) 0.6 %; Lymphocytes # (auto) 0.64 K/uL (1.20-3.40); Lymphocytes % (auto) 7.2 %; Mean Corpuscular Hgb Conc 33.1 g/dL (32.0-36.0); Mean Corpuscular Volume 90.7 fL (80.0-100.0); Monocytes # (auto) 0.91 K/uL (0.11-0.59); Monocytes % (auto) 10.2 %; Neutrophils # (auto) 6.52 K/uL (1.40-6.50); Neutrophils % (auto) 73.2 %; Platelet Count 166 K/uL (130-400); RDW Coefficient of Variation 15.3 % (11.5-14.5); Red Blood Count 3.43 M/uL (4.20-5.40)
[2024-06-20 13:07] LABS: Albumin Level 2.8 gm/dl (3.4-5.0); BUN Creatinine Ratio 14.8 (10-20); Bilirubin Direct 0.1 mg/dl (0-0.2); Bilirubin,Total 0.4 mg/dl (0.2-1.0); Creatinine Clr Calc Pharmacy 31.9 ml/min; Total Protein 7.1 gm/dl (6.0-8.3)
[2024-06-20 13:34] LABS: Adenovirus PCR Not Detected (NotDetected); Bordetella parapertussis PCR Not Detected (NotDetected); Bordetella pertussis PCR Not Detected (NotDetected); Chlamydia pneumoniae PCR Not Detected (NotDetected); Coronavirus 229E PCR Not Detected (NotDetected); Coronavirus CoV-2 (COVID19)PCR Not Detected (NotDetected); Coronavirus HKU1 PCR Not Detected (NotDetected); Coronavirus NL63 PCR Not Detected (NotDetected); Coronavirus OC43PCR Not Detected (NotDetected); Human Metapneumovirus PCR Not Detected (NotDetected); Influenza A PCR Not Detected (NotDetected); Influenza B PCR Not Detected (NotDetected); Mycoplasma pneumoniae PCR Not Detected (NotDetected); Parainfluenza Virus 1 PCR Not Detected (NotDetected); Parainfluenza Virus 2 PCR Not Detected (NotDetected); Parainfluenza Virus 3 PCR Not Detected (NotDetected); Parainfluenza Virus 4 PCR Not Detected (NotDetected); Respiratory Syncytial VirusPCR Not Detected (NotDetected); Rhinovirus/Enterovirus PCR Not Detected (NotDetected)
--- NOTE | 2024-06-20 13:47 | Emergency Department Note ---
Impression & Plan Acute hyponatremia, Pneumonia, Acute hypoxic on chronic hypercapnic respiratory failure ED Provider Note NAME: MAGGY TELLEZ AGE: 78 SEX: F : 1945 ARRIVES VIA: Ambulance INFORMANT: Patient, ED PROVIDER(S): Cali Johnson MD CHIEF COMPLAINT: Low sodium level HPI: This is a 78-year-old female presenting for low sodium level. Patient reportedly has had continuing low sodium levels over the past few days but does not wish to know why. She notes that her labs are normal this morning from [facility]. She notes she is somewhat altered. She notes some difficulty breathing and cough that is new. Otherwise no urinary symptoms. ROS: See above HPI for pertinent positives & negatives. A total of 10 systems reviewed and were otherwise negative. PHYSICAL EXAMINATION: General: resting comfortably in no acute distress Head: Normocephalic and atraumatic Eyes: Normal inspection, extraocular muscles intact Ear, nose, throat: Normal external exam Neck: Normal range of motion Respiratory: lungs clear to auscultation bilaterally Cardiovascular: Regular rate/rhythm, no murmur GI: soft, nontender, no guarding or rebound Extremities: nontender, moves all extremities Neuro: The patient awake and alert, appropriately conversive, no focal deficits, symmetric faces Skin: Warm, dry, and intact MEDICAL DECISION MAKING: This is a 78-year-old female sent for low sodium level. Patient has hyponatremia to 119 this morning on blood work. Will repeat here to ensure stability or lab error. Otherwise we will get UA, COVID-19 test and chest x-ray to help elucidate further etiology for patient's confusion and reported shortness of breath. -Blood work is reviewed showing anemia of 10.3. Otherwise electrolytes do confirm hyponatremia with sodium of 118 otherwise hypochloremia 76, CO2 is 38. Patient's creatinine is 1.93 with BUN that is 28. -Chest x-ray as Independently interpreted by me reveals multifocal airspace opacity in the right lung greater than left concerning for also pneumonia. In addition patient is hypoxic requiring more oxygen than usual. -Open respiratory panel currently negative -VBG is 7.4/67, slightly hypercarbic without acidosis -Patient is reassessed and appears mildly uncomfortable. Will increase oxygen requirements at this time. -Will give antibiotics for patient suspected pneumonia. Otherwise will admit for further workup. -Care discussed with Dr. Olivier, for admission at this time. Differential diagnosis: Pneumonia, hyponatremia, hypercarbia, upper respiratory infection ER treatment provided: See below Diagnostics interpreted by me: ECG: ECG independently interpreted by me with,ventricularly paced rhythm at a rate of 71, QRS 140, normal QTc, no segment elevations consistent with STEMI criteria] Cardiac Monitoring: An order was placed for continuous cardiac monitoring. The monitor shows a rate of 65 with paced rhythm. Laboratory studies: As stated above and show below. Imaging studies: See below. Critical Care Note: I have personally spent 34 minutes of critical care time in the direct management of this patient. This includes bedside care, interpretation of diagnostic studies, and testing, discussion with consultants, patient, and family members, and other required patient management activities. This 34 minutes is in excess of all separately billable procedures. 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) Anemia (Acute) CHF exacerbation (Acute) Acute and chronic respiratory failure, unspecified whether with hypoxia or hypercapnia (Acute) Arterial occlusion (Acute) Acute leg pain (Acute) Fall (Acute) Weakness (Acute) Closed right fibular fracture (Acute) Hypomagnesemia (Acute) Delirium Encephalopathy Altered mental status Acute kidney injury superimposed on chronic kidney disease Diabetes mellitus, type II Cellulitis of right leg Scalp laceration Fall (Acute) Weakness (Acute) Volume excess Shital-prosthetic fracture of proximal tibia (Acute) Fracture of proximal end of fibula (Acute) Hyperglycemia (Acute) CKD (chronic kidney disease) (Acute) Leukocytosis (Acute) Sleep apnea Hyperkalemia Leukocytosis Periprosthetic fracture around 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 Excessive daytime sleepiness Morbid obesity due to excess calories Obesity hypoventilation syndrome Noncompliance with medication regimen PVD (peripheral vascular disease) CKD (chronic kidney disease), stage III Nonischemic cardiomyopathy HTN (hypertension) Dyslipidemia Diabetes mellitus, type II, insulin dependent Morbid obesity Asthma Pacemaker History of cataract removal with insertion of prosthetic lens History of carpal tunnel release H/O tubal ligation Dehydration (Acute) Complete heart block (Acute 06/14/14) Medical History (Updated 06/21/24 @ 11:22 by Cali Johnson MD) CKD (chronic kidney disease) stage 4, GFR 15-29 ml/min Chronic hyponatremia Nausea & vomiting Granulomatous interstitial lung disease Physical deconditioning Surgical History History of total knee arthroplasty 2005; bilateral History of cardiac cath 2014 - normal coronary arteries; Dr Jorgensen at [facility] [place] History of revascularization procedure of lower extremity fem/pop artery revascularization RLE; 09/2017; Dr Gill at [facility] [place] Family History Mother Leukemia Son Asthma Brother Stroke Social History (Updated 06/20/24 @ 17:18 by Cary Salas RN) Smoking Status: Never smoker Second Hand Exposure: No; Do You Dip or Chew Tobacco: No; Tobacco Cessation Education Requested by Patient: No Hx Alcohol Use: No Hx Substance Use: No Preferred Language: Japanese Communication Ability: Effective Architect Internship Required: No Beliefs That Will Affect Care: None marital status: Current Living Situation: Detention Current Living Situation Comment: In a 2 story house with Feels Safe at Home: Yes Safety Concerns: Feels Safe At This Time Assistive Devices: Denture - Upper, Denture - Lower and Glasses Allergies Allergies Allergy/AdvReac Type Severity Reaction Status Date / Time fluticasone Allergy Severe WATER ON Verified 03/09/24 18:38 LUNGS, SHORT OF BREATH mold Allergy Severe BLACK Verified 03/09/24 18:38 MOLD--SEE COMMENT salmeterol Allergy Severe WATER ON Verified 03/09/24 18:38 LUNGS, SHORT OF BREATH benzocaine Allergy Unknown Unknown Verified 03/09/24 18:38 Corticosteroids Allergy Anaphylaxis Verified 03/09/24 18:38 (Glucocorticoids) hydrocodone [From Vicodin] AdvReac Intermediate hallucinati Verified 03/09/24 18:38 ons oxycodone AdvReac Intermediate Hallucinati Verified 03/09/24 18:38 ng prednisone AdvReac Intermediate HYPERGLYCEM Verified 03/09/24 18:38 IA propoxyphene AdvReac Intermediate DARVOCET--INSOMNIA, Verified 03/09/24 18:38 EXCESSIVE DRY MOUTH VINYL COVERING Allergy Intermediate Rash Uncoded 03/09/24 18:38 Home Meds Home Medications Medication Instructions Recorded Confirmed clopidogrel 75 mg tablet 75 mg PO QAM 10/01/19 06/20/24 loratadine 10 mg tablet 10 mg PO QAM 10/01/19 06/20/24 montelukast 10 mg tablet 10 mg PO QAM 10/01/19 06/20/24 rosuvastatin 40 mg tablet 40 mg PO QAM 09/22/21 06/20/24 insulin glargine 100 unit/mL (3 45 unit subcut DAILY 03/20/22 06/20/24 mL) subcutaneous pen (Lantus Solostar U-100 Insulin) gabapentin 100 mg capsule 200 mg PO TID 12/12/22 06/20/24 losartan 25 mg tablet 25 mg PO QAM 12/12/22 06/20/24 magnesium oxide 400 mg PO QAM 12/12/22 06/20/24 benzonatate 100 mg capsule 100 mg PO TID PRN Cough 10/28/23 06/20/24 polyethylene glycol 3350 17 17 g PO DAILY Constipation 12/08/23 06/20/24 gram/dose oral powder (Miralax) metoprolol succinate 50 mg 50 mg PO QAM 03/09/24 06/20/24 tablet,extended release 24 hr acetaminophen 500 mg tablet 1,000 mg PO BID 06/20/24 06/20/24 bisacodyl 10 mg rectal suppository 10 mg NV DAILY PRN Constipation 06/20/24 06/20/24 (Dulcolax (bisacodyl)) hydrocodone 5 mg-acetaminophen 325 1 tab PO Q6H PRN Pain 06/20/24 06/20/24 mg tablet insulin lispro 100 unit/mL 1 sliding scale dose subcut 06/20/24 06/20/24 subcutaneous solution (Humalog USEASDIRECTD U-100 Insulin) ipratropium 0.5 mg-albuterol 3 mg 3 ml inhalation .Q2H PRN sob/wheeze 06/20/24 06/20/24 (2.5 mg base)/3 mL nebulization soln levofloxacin 500 mg tablet 500 mg PO .Q OTHER DAY 06/20/24 06/20/24 magnesium hydroxide 400 mg/5 mL 30 ml PO DAILY PRN Constipation 06/20/24 06/20/24 oral suspension (Milk of Magnesia) menthol-sorbitol lozenges 1 martell mucous membrane Q2H PRN Cough 06/20/24 06/20/24 sodium chloride 0.65 % nasal spray 1 spray intranasal Q1H PRN dry nose 06/20/24 06/20/24 aerosol (Saline Nasal) sodium phosphates 19 gram-7 118 ml NV DAILY PRN Constipation 06/20/24 06/20/24 gram/118 mL enema (Fleet Enema) Previous Rx's Medication Instructions Recorded apixaban 5 mg tablet (Eliquis) 2.5 mg (1/2 x 5 mg) PO BID #0 tabs 03/16/24 torsemide 20 mg tablet 60 mg (3 x 20 mg) PO QAM #90 tabs 03/16/24 albuterol sulfate 2.5 mg/3 mL 2.5 mg (3 mL) inhalation Q4 PRN 04/16/24 (0.083 %) solution for nebulization Wheezing #180 mL tiotropium bromide 1.25 2 puff inhalation DAILY #4 grams 04/16/24 mcg/actuation mist for inhalation (Spiriva Respimat) Results & Data (ED) Vital Signs Vital Signs - 24 hr 06/20/24 11:51 06/20/24 11:51 06/20/24 12:10 Temperature 37.0 C 37.0 C Temperature Source Oral Oral Pulse Rate 85 79 Pulse Rate [Apical] 85 Respiratory Rate 17 18 Respiratory Effort / Characteristics Non-Labored Spontaneous Non-Labored Spontaneous Respiratory Depth Normal Normal Blood Pressure 122/67 Blood Pressure [Right Arm] 122/67 Blood Pressure Mean 85 Blood Pressure Mean [Right Arm] 85 Blood Pressure Position Semi-fowlers Blood Pressure Position [Right Arm] Semi-fowlers Pulse Oximetry 96 96 Oxygen Delivery Method Nasal Cannula Nasal Cannula Oxygen Flow Rate 8 8 Sepsis Recent Fever Within 48 Hours No Sepsis New/Unexplained Change in Mental Status N/A Sepsis Action Taken by Nursing No Action Required 06/20/24 14:00 Temperature Temperature Source Pulse Rate Pulse Rate [Apical] 80 Respiratory Rate 20 Respiratory Effort / Characteristics Spontaneous Respiratory Depth Blood Pressure Blood Pressure [Right Arm] 128/101 H Blood Pressure Mean Blood Pressure Mean [Right Arm] 110 Blood Pressure Position Blood Pressure Position [Right Arm] Semi-fowlers Pulse Oximetry 95 Oxygen Delivery Method Nasal Cannula Oxygen Flow Rate 8 Sepsis Recent Fever Within 48 Hours Sepsis New/Unexplained Change in Mental Status Sepsis Action Taken by Nursing Laboratory Data 06/21/24 08:30 06/21/24 08:30 Lab Results 06/20/24 06/20/24 Range/Units 12:15 12:28 WBC 8.90 (4.8-10.8) K/ul RBC 3.43 L (4.20-5.40) M/uL Hgb 10.3 L (12.0-16.0) g/dl Hct 31.1 L (37.0-47.0) % MCV 90.7 (80.0-100.0) fL MCH 30.0 (25.0-34.0) pg MCHC 33.1 (32.0-36.0) g/dL RDW Std Deviation 51.0 H (36.4-46.3) fL RDW Coeff of Javier 15.3 H (11.5-14.5) % Plt Count 166 (130-400) K/uL MPV 9.0 L (9.4-12.4) fL Immature Gran % (Auto) 0.6 % Neut % (Auto) 73.2 % Lymph % (Auto) 7.2 % Mcmullen % (Auto) 10.2 % Eos % (Auto) 7.8 % Baso % (Auto) 1.0 % Neut # (Auto) 6.52 H (1.40-6.50) K/uL Lymph # (Auto) 0.64 L (1.20-3.40) K/uL Mcmullen # (Auto) 0.91 H (0.11-0.59) K/uL Eos # (Auto) 0.69 H (0.00-0.50) K/uL Baso # (Auto) 0.09 (0.00-0.20) K/uL Immature Gran # (Auto) 0.05 (0.01-0.20) K/uL VBG pH 7.40 (7.36-7.41) VBG pCO2 67 H (38-50) mmHg VBG pO2 25 mmHg VBG HCO3 42 mmol/L VBG O2 Saturation < 60.0 % VBG Base Excess 14.1 mEq/L Sodium 118 L* (136-145) mmol/L Potassium 5.0 (3.5-5.1) mmol/L Chloride 76 L (98-107) mmol/L Carbon Dioxide 39 H (21-32) mmol/L Anion Gap 3 (3-11) BUN 28 H (6-23) mg/dl Creatinine 1.89 H (0.6-1.2) mg/dl Est Cr Clr Drug Dosing 31.9 ml/min eGFR 26.86 BUN/Creatinine Ratio 14.8 (10-20) Glucose 102 H (70-99(Fasting)) mg/dl Calcium 9.0 (8.6-10.3) mg/dl Total Bilirubin 0.4 (0.2-1.0) mg/dl Direct Bilirubin 0.1 (0-0.2) mg/dl AST 35 (13-39) U/L ALT 12 (7-52) U/L Alkaline Phosphatase 97 (34-104) U/L Total Protein 7.1 (6.0-8.3) gm/dl Albumin 2.8 L (3.4-5.0) gm/dl Lipase 26 (11-82) U/L Adenovirus (PCR) Not Detected (NotDetected) B. pertussis DNA (PCR) Not Detected (NotDetected) B.parapertussis DNA PCR Not Detected (NotDetected) C. pneumoniae DNA (PCR) Not Detected (NotDetected) Coronavirus OC43 (PCR) Not Detected (NotDetected) Coronavirus HKU1 (PCR) Not Detected (NotDetected) Coronavirus 229E (PCR) Not Detected (NotDetected) SARS-CoV-2 (PCR) Not Detected (NotDetected) Coronavirus NL63 (PCR) Not Detected (NotDetected) Human Metapneumovir PCR Not Detected (NotDetected) Influenza Type A (PCR) Not Detected (NotDetected) Influenza Type B (PCR) Not Detected (NotDetected) M. pneumoniae (PCR) Not Detected (NotDetected) Parainfluenza 1 (PCR) Not Detected (NotDetected) Parainfluenza 2 (PCR) Not Detected (NotDetected) Parainfluenza 3 (PCR) Not Detected (NotDetected) Parainfluenza 4 (PCR) Not Detected (NotDetected) RSV (PCR) Not Detected (NotDetected) Entero/Rhino (PCR) Not Detected (NotDetected) Administered Medications Albuterol (Albuterol 0.083% Nebu Soln 3 Ml Vial) 2.5 mg INH Q4 PRN; Protocol PRN Reason: Wheezing Stop: 07/20/24 16:58 Last Admin: 06/21/24 03:12 Dose: 2.5 mg Documented By: BAO Apixaban (Apixaban 2.5 Mg Tab) 2.5 mg PO BID [facility] Stop: 07/20/24 20:59 Last Admin: 06/21/24 10:09 Dose: 2.5 mg Documented By: Admin: 06/20/24 20:35 Dose: 2.5 mg Documented By: HALIE Clopidogrel Bisulfate (Clopidogrel Bisulfate 75 Mg Tab) [facility] [place] Stop: 07/21/24 08:59 Last Admin: 06/21/24 10:10 Dose: 75 mg Documented By: MARTIN Cyanocobalamin (Cyanocobalamin (B-12) 500 Mcg Tablet) 2,000 mcg PO QAM [facility] Stop: 07/21/24 08:59 Last Admin: 06/21/24 10:10 Dose: 2,000 mcg Documented By: MARTIN Gabapentin (Gabapentin 100 Mg Cap) 200 mg PO TID [facility] Stop: 07/20/24 20:59 Last Admin: 06/21/24 10:10 Dose: 200 mg Documented By: Admin: 06/20/24 20:34 Dose: 200 mg Documented By: HALIE Ceftriaxone Sodium (Rocephin) 2,000 mg in 50 mls @ 100 mls/hr IV Q24H [facility] Stop: 06/22/24 14:29 Last Infusion: 06/20/24 16:05 Dose: Infused Documented By: Admin: 06/20/24 15:25 Dose: 100 mls/hr Documented By: ALICE Doxycycline Hyclate 100 mg/ (Dextrose) 100 mls @ 50 mls/hr IV Q12H [facility] Stop: 06/28/24 05:59 Last Admin: 06/21/24 05:45 Dose: 50 mls/hr Documented By: HALIE Insulin Aspart (Insulin Aspart Per Unit Charge) 0 units SC ACHS [facility] Stop: 07/20/24 16:29 Last Admin: 06/21/24 10:00 Dose: Not Given Documented By: Admin: 06/20/24 20:33 Dose: 1 units Documented By: HALIE Co-signed By: FLACO Admin: 06/20/24 17:58 Dose: Not Given Documented By: NORMA Loratadine (Loratadine 10 Mg Tab) 10 mg PO [facility] Stop: 07/21/24 08:59 Last Admin: 06/21/24 10:09 Dose: 10 mg Documented By: MARTIN Losartan Potassium (Losartan Potassium 25 Mg Tab) 25 mg PO [facility] Stop: 07/21/24 08:59 Last Admin: 06/21/24 10:09 Dose: 25 mg Documented By: MARTIN Magnesium Oxide (Magnesium Oxide 400 Mg Tab) 400 mg PO [facility] Stop: 07/21/24 08:59 Last Admin: 06/21/24 10:09 Dose: 400 mg Documented By: MARTIN Metoprolol Succinate (Metoprolol Succ 50mg Ext Rel Tab) 50 mg PO [facility] Stop: 07/21/24 08:59 Last Admin: 06/21/24 10:10 Dose: 50 mg Documented By: MARTIN Montelukast Sodium (Montelukast Sodium 10 Mg Tablet) 10 mg PO [facility] Stop: 07/21/24 08:59 Last Admin: 06/21/24 10:09 Dose: 10 mg Documented By: MARTIN Multivitamins (Multivitamin Tab) 1 tab PO [facility] Stop: 07/21/24 08:59 Last Admin: 06/21/24 10:09 Dose: 1 tab Documented By: MARTIN Rosuvastatin Calcium (Rosuvastatin Calcium 20 Mg Tab) 40 mg PO [facility] Stop: 07/21/24 08:59 Last Admin: 06/21/24 10:09 Dose: 40 mg Documented By: MARTIN Umeclidinium [place] (Umeclidinium [place] 62.5mcg/Blister 7 Puffs/Inhaler) 1 puffs INH DAILY [facility] Stop: 07/21/24 08:59 Last Admin: 06/21/24 10:11 Dose: 1 puffs Documented By: MARTIN Zolpidem Tartrate (Zolpidem Tartrate 5 Mg Tab) 5 mg PO HS PRN PRN Reason: Sleep Stop: 07/20/24 16:58 Last Admin: 06/20/24 20:34 Dose: 5 mg Documented By: HALIE Discontinued Medications Furosemide (Furosemide 40 Mg/4 Ml Vial) 40 mg IV ONE ONE Stop: 06/20/24 14:42 Last Admin: 06/20/24 15:25 Dose: 40 mg Documented By: ALICE Furosemide (Furosemide 40 Mg/4 Ml Vial) 60 mg IV ONE ONE Stop: 06/20/24 20:01 Last Admin: 06/20/24 20:33 Dose: 60 mg Documented By: HALIE Furosemide (Furosemide 40 Mg/4 Ml Vial) 60 mg IV TID JEY Stop: 07/21/24 10:14 Last Admin: 06/21/24 10:24 Dose: 60 mg Documented By: MARTIN Doxycycline Hyclate 100 mg/ (Dextrose) 100 mls @ 50 mls/hr IV NOW STA Stop: 06/20/24 16:16 Last Infusion: 06/20/24 17:53 Dose: Infused Documented By: Admin: 06/20/24 15:26 Dose: 50 mls/hr Documented By: ALICE Discharge Plan Visit Data Chief Complaint: Abnormal Labs/Diagnostic Testing Stated Complaint: ABNNORMAL LABS ED Provider: Cali Johnson Discharge Problem: Acute hyponatremia, Pneumonia, Acute hypoxic on chronic hypercapnic respiratory failure Patient Disposition: Admitted As Inpatient Discharge Instructions Interventions: ED Discharge Assessment Last Done: 06/20/24 16:29
--- NOTE | 2024-06-20 14:58 | XRay Report ---
SINGLE VIEW CHEST CLINICAL HISTORY: Dyspnea FINDINGS: An AP, portable, upright chest radiograph is compared to chest x-ray and chest CT dated 02/26. The examination is degraded by portable technique and patient rotation. A 3-lead cardiac pac emaker is unchanged in position. The heart is enlarged and noting atherosclerotic calcification of th e thoracic aorta. There is pulmonary vascular congestion. Changes of chronic interstitial/for chronic lung disease are again seen throughout both lungs. Superimposed airspace opacities in the right mid to lower lung are not excluded. Small pleural effusions are suspected. No pneumothorax is seen. The s keletal structures are osteopenic. The bony thorax is grossly intact. IMPRESSION: 1. Cardiomegaly and cardiac pacemaker with pulmonary vascular congestion. 2. Suspect small pleural effusions. 3. Changes of chronic interstitial/fibrotic lung disease are again noted. 4. Superimposed airspace opacities in the right mid to lower lung are not excluded. This could repres ent mild pulmonary edema and/or an infectious/inflammatory pneumonitis. Clinical correlation will be required and radiographic follow-up to resolution is recommended. ACT 112: Negative or not required by law. Electronically signed by: Celestino Guerrero M.D. 06/20/2024 2:57 PM
--- NOTE | 2024-06-20 15:10 | History & Physical Report ---
Date of Service June 20, 2024 Assessment & Plan (1) Acute and chronic respiratory failure, unspecified whether with hypoxia or hypercapnia: Plan: History of chronic respiratory failure secondary to ILD, asthma and sleep apnea on 3 L of oxygen Possible bilateral pneumonia/pneumonitis Has been complaining of more shortness of breath for the last 3 days associated with cough and productive of whitish-yellow phlegm Has been requiring 8 L to maintain saturation She has been started on intravenous ceftriaxone doxycycline for possible superimposed pneumonitis/pneumonia Will continue with her usual bronchodilators and nebulized bronchodilators Will consult pulmonology for further evaluation and management (2) Acute hyponatremia: Plan: History of chronic hyponatremia Presented with increasing weakness but no definite confusion as I was reported Sodium level is 1118 Will check urine electrolytes and osmolality of urine Will restrict fluid intake for about 1500 mL daily Nephrology consult for further evaluation Will repeat PRP at 6 PM and in AM (3) ILD (interstitial lung disease): Plan: Has been under care of photo equipment technician Will consult them while she is in the hospital 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: Service Unit [employer] not been using any CPAP and/or BiPAP (5) 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): Plan: history of CHF Current presentation is likely due to exacerbation and fluid overload Has been on torsemide orally as an outpatient Will give 40 of Lasix IV x 1 dose and further diuretics as per puttying and calking supervisor (6) Acute kidney injury superimposed on chronic kidney disease: (7) Diabetes mellitus, type II: Plan: continue with insulin sliding scale coverage with monitoring of blood sugar (8) Morbid obesity due to excess calories: (9) HTN (hypertension): Plan: w\Will continue current management (10) Periprosthetic fracture around internal prosthetic knee joint: Plan: The patient had a fall while working with PT on 03/13/2024 and since then noted to have periprosthetic left knee fracture Ortho service was consulted and managed conservatively [facility] then Will get PT and OT evaluation Plan DVT prophylaxis has been on Eliquis 2.5 mg twice daily CODE STATUS full History of Present Illness Chief Complaint: Increasing shortness of breath and weakness for the last 3 days Primary Care Provider: Rk Jones MD she is a 78-year-old obese female with significant past medical history of chronic hypoxic respiratory failure on 3 L of oxygen, asthma, obstructive sleep apnea not on any CPAP and/or BiPAP, coronary artery disease status post stent and also status post pacemaker placement, chronic systolic and diastolic heart failure, paroxysmal atrial fibrillation on Eliquis, peripheral vascular disease, diabetes type 2 on insulin, hypertension, hyperlipidemia, chronic kidney disease and also chronic hyponatremia apparently has been complaining of increasing shortness of breath for the last 3 days. She also complains to have generalized weakness which is worse for the last 3 days. She does have a cough and feels feverish but no documented temperature and her cough is productive of dark to yellow phlegm. She has been almost bedbound for a while at [facility]. She denies any abdominal pain, any nausea and/or vomiting. She complains of swelling of the legs as well and feels that she has been dying. She was in [facility] in February of this year with acute on chronic respiratory failure, CHF exacerbation and also periprosthetic left knee fracture and she was sent to [facility] to continue rehab. she has been Herley coming out of bed for a while at [facility] and not being able to have a few steps without a walker. She has not any change of her medications recently. Allergies Allergy/AdvReac Type Severity Reaction Status Date / Time fluticasone Allergy Severe WATER ON Verified 03/09/24 18:38 LUNGS, SHORT OF BREATH mold Allergy Severe BLACK Verified 03/09/24 18:38 MOLD--SEE COMMENT salmeterol Allergy Severe WATER ON Verified 03/09/24 18:38 LUNGS, SHORT OF BREATH benzocaine Allergy Unknown Unknown Verified 03/09/24 18:38 Corticosteroids Allergy Anaphylaxis Verified 03/09/24 18:38 (Glucocorticoids) hydrocodone [From Vicodin] AdvReac Intermediate hallucinati Verified 03/09/24 18:38 ons oxycodone AdvReac Intermediate Hallucinati Verified 03/09/24 18:38 ng prednisone AdvReac Intermediate HYPERGLYCEM Verified 03/09/24 18:38 IA propoxyphene AdvReac Intermediate DARVOCET--INSOMNIA, Verified 03/09/24 18:38 EXCESSIVE DRY MOUTH VINYL COVERING Allergy Intermediate Rash Uncoded 03/09/24 18:38 Home Medications Medication Instructions Recorded Confirmed Type clopidogrel 75 mg tablet 75 mg PO QAM 10/01/19 03/09/24 History loratadine 10 mg tablet 10 mg PO QAM 10/01/19 03/09/24 History montelukast 10 mg tablet 10 mg PO QAM 10/01/19 03/09/24 History insulin aspart U-100 100 unit/mL 18 unit subcut TIDM 09/22/21 03/13/24 History (3 mL) subcutaneous pen (Novolog FlexPen U-100 Insulin aspart) rosuvastatin 40 mg tablet 40 mg PO QAM 09/22/21 03/09/24 History insulin glargine 100 unit/mL (3 22 unit subcut AMHS 03/20/22 03/13/24 History mL) subcutaneous pen (Lantus Solostar U-100 Insulin) tramadol 50 mg tablet 50 mg PO Q6H PRN severe pain 03/31/22 03/09/24 Rx (scale score 7-10) #25 tabs gabapentin 100 mg capsule 200 mg PO TID 12/12/22 03/09/24 History losartan 25 mg tablet 25 mg PO QAM 12/12/22 03/09/24 History magnesium oxide 400 mg PO QAM 12/12/22 03/09/24 History multivitamin 1 tab PO QAM 12/12/22 03/09/24 History benzonatate 100 mg capsule 100 mg PO TID PRN Cough 10/28/23 03/09/24 History zolpidem 5 mg tablet (Ambien) 5 mg PO HS PRN Sleep 10/28/23 03/09/24 History Prevagen 1 cap PO QAM 12/08/23 03/09/24 History cyanocobalamin (vitamin B-12) 2,000 mcg PO QAM 12/08/23 03/09/24 History 2,000 mcg tablet,extended release (Vitamin B-12 ER) diphenoxylate-atropine 2.5 2 tab PO Q6H PRN Diarrhea 12/08/23 03/09/24 History mg-0.025 mg tablet (Lomotil) polyethylene glycol 3350 17 17 g PO DAILY PRN Constipation 12/08/23 03/09/24 History gram/dose oral powder (Miralax) potassium gluconate 550 mg (90 mg) 550 mg PO QAM 12/08/23 03/09/24 History tablet sennosides 8.6 mg-docusate sodium 1 tab-cap PO QAM PRN Constipation 12/08/23 03/09/24 History 50 mg tablet (Senna-S) metoprolol succinate 50 mg 50 mg PO QAM 03/09/24 03/09/24 History tablet,extended release 24 hr apixaban 5 mg tablet (Eliquis) 2.5 mg (1/2 x 5 mg) PO BID #0 tabs 03/16/24 03/09/24 Rx torsemide 20 mg tablet 60 mg (3 x 20 mg) PO QAM #90 tabs 03/16/24 Rx albuterol sulfate 2.5 mg/3 mL 2.5 mg (3 mL) inhalation Q4 PRN 04/16/24 04/16/24 Rx (0.083 %) solution for nebulization Wheezing #180 mL tiotropium bromide 1.25 2 puff inhalation DAILY #4 grams 04/16/24 04/16/24 Rx mcg/actuation mist for inhalation (Spiriva Respimat) Past Med/Surg History Problem List (Updated 06/20/24 @ 15:04 by Lisset Olivier MD) Acute hyponatremia Chronic hyponatremia Periprosthetic fracture around internal prosthetic knee joint Abnormal chest CT ILD (interstitial lung disease) Paroxysmal atrial fibrillation ISAIAS (obstructive sleep apnea) 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) Anemia (Acute) CHF exacerbation (Acute) Acute and chronic respiratory failure, unspecified whether with hypoxia or hyper capnia (Acute) Arterial occlusion (Acute) Acute leg pain (Acute) Fall (Acute) Weakness (Acute) Closed right fibular fracture (Acute) Hypomagnesemia (Acute) Delirium Encephalopathy Altered mental status Acute kidney injury superimposed on chronic kidney disease Diabetes mellitus, type II Cellulitis of right leg Scalp laceration Fall (Acute) Weakness (Acute) Volume excess Shital-prosthetic fracture of proximal tibia (Acute) Fracture of proximal end of fibula (Acute) Hyperglycemia (Acute) CKD (chronic kidney disease) (Acute) Leukocytosis (Acute) Sleep apnea Hyperkalemia Leukocytosis Periprosthetic fracture around 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 Excessive daytime sleepiness Morbid obesity due to excess calories Obesity hypoventilation syndrome Noncompliance with medication regimen PVD (peripheral vascular disease) CKD (chronic kidney disease), stage III Nonischemic cardiomyopathy HTN (hypertension) Dyslipidemia Diabetes mellitus, type II, insulin dependent Morbid obesity Asthma Pacemaker History of cataract removal with insertion of prosthetic lens History of carpal tunnel release H/O tubal ligation Dehydration (Acute) Complete heart block (Acute 06/14/14) Medical History Nausea & vomiting Granulomatous interstitial lung disease Physical deconditioning Surgical History History of total knee arthroplasty 2005; bilateral History of cardiac cath 2014 - normal coronary arteries; Dr Jorgensen at [facility] [place] History of revascularization procedure of lower extremity fem/pop artery revascularization RLE; 09/2017; Dr Gill at [facility] [place] [facility] Family History Mother Leukemia Son Asthma Brother Stroke Social History Smoking Status: Never smoker Second Hand Exposure: No; Do You Dip or Chew Tobacco: No; Hx Alcohol Use: No Hx Substance Use: No Preferred Language: Trinidadian Communication Ability: Effective Buckle Sewer Machine Required: No Beliefs That Will Affect Care: None marital status: Current Living Situation: Spouse Current Living Situation Comment: In a 2 story house with Feels Safe at Home: Yes Assistive Devices: Cane, Oxygen - Continuous, Walker and Wheelchair Review of Systems Review of Systems: all systems reviewed and are unremarkable except as noted in H&P Physical Exam Physical Exam: Lying in bed with acute distress due to shortness of breath and weakness Constitutional: well developed, well nourished, + ill appearing and + morbidly obese Eyes: PERRL, conjunctivae normal, anicteric sclerae ENMT: external ear and nose normal, oropharynx normal Neck: trachea midline, no thyromegaly Respiratory: + respiratory distress Auscultation: + diminished lung sounds, + crackles ( At the bases) and + wheezes Cardiovascular: Rate/Rhythm: regular rate and regular rhythm; not tachycardic Heart Sounds: normal S1 and normal S2; no murmur Extremities: + edema ( 1+ leg edema bilaterally) Gastrointestinal (Abdomen): Inspection/Auscultation: + abdomen distended and normal bowel sounds Percussion/Palpation: abdomen soft; abdomen nontender Musculoskeletal: minimal pain with movement of the right knee but no acute arthritis involving any other joint Neurologic: Alert, awake and oriented x 3. Generally very weak and lethargic Lymphatic: no cervical or axillary lymphadenopathy Results & Data Results & Data Vital Signs (Past 12 Hours) Vital Signs Temp Pulse Pulse Resp BP BP Pulse Ox 06/20/24 14:00 80 20 128/101 H 95 06/20/24 12:10 79 06/20/24 11:51 37.0 C 85 18 122/67 96 06/20/24 11:51 37.0 C 85 17 122/67 96 O2 Del Method O2 Flow Rate 06/20/24 14:00 Nasal Cannula 8 06/20/24 12:10 06/20/24 11:51 Nasal Cannula 8 06/20/24 11:51 Nasal Cannula 8 Laboratory Results Short CBC 06/20/24 Range/Units 12:15 WBC 8.90 (4.8-10.8) K/ul Hgb 10.3 L (12.0-16.0) g/dl Hct 31.1 L (37.0-47.0) % Plt Count 166 (130-400) K/uL BMP 06/20/24 12:15 Sodium 118 L* Potassium 5.0 Chloride 76 L Carbon Dioxide 39 H BUN 28 H Creatinine 1.89 H Glucose 102 H Calcium 9.0 Liver Function 06/20/24 Range/Units 12:15 Total Bilirubin 0.4 (0.2-1.0) mg/dl Direct Bilirubin 0.1 (0-0.2) mg/dl AST 35 (13-39) U/L ALT 12 (7-52) U/L Alkaline Phosphatase 97 (34-104) U/L Albumin 2.8 L (3.4-5.0) gm/dl Medications Administered Current Inpatient Medications Ceftriaxone Sodium (Rocephin) 2,000 mg in 50 mls @ 100 mls/hr IV Q24H JEY Stop: 06/22/24 14:29 Doxycycline Hyclate 100 mg/ (Dextrose) 100 mls @ 50 mls/hr IV NOW STA Stop: 06/20/24 16:16 (1) Acute and chronic respiratory failure, unspecified whether with hypoxia or hypercapnia Respiratory failure complication: unspecified whether with hypoxia or hypercapnia Qualified Code(s): J96.20 - Acute and chronic respiratory failure, unspecified whether with hypoxia or hypercapnia (9) HTN (hypertension) Hypertension type: unspecified Qualified Code(s): I10 - Essential (primary) hypertension
[2024-06-20] MEDS: FUROSEMIDE 40 MG/4 ML VIAL IV ONE ×2 (15:25→20:33)
[2024-06-20] MEDS: cefTRIAXone SODIUM 2,000 MG/50 ML BAG IV SCH (15:25)
[2024-06-20] MEDS: DOXYCYCLINE HYCLATE 100 MG in DEXTROSE 5% MINI-B 100 ML IV STA (15:26)
--- NOTE | 2024-06-20 16:53 | Nephrology Consultation ---
Date of Consultation June 20, 2024 Assessment & Plan (1) Hyponatremia with excess extracellular fluid volume: given XRay findings this is likely hypervolemic hyponatremia. may also be complicated by progressive lung disease. presented w/ sNa 119 at 0440 today. -target sNa for AM is no more than 125 -will order serum osms w/ 1800 labs and ensure we get UA along w/ other sodium labs -agree w/ 1.5L FR; may need to tighten -will start lasix intermittently at 60 mg IV x 1 this evening; consider lasix 60 mg IV tid in am; may well need more aggressive dosing of diuretics (2) CKD (chronic kidney disease) stage 4, GFR 15-29 ml/min: renal function at baseline. not oliguric. K 5 but will go down w/ diuresis History of Present Illness Reason for Consultation: hyponatremia Requesting Physician: Dr Olivier Attending Physician: Dr Olivier History of Present Illness 78 y/o F whom I'm asked to see for worsened chronic hyponatremia was admitted today for acute on chronic respiratory failure; her presenting sNa at 1215 this afternoon was 118. She came to hospital b/c of worsening generalized weakness and dyspnea. PMH includes worsening chronic hyponatremia over months, CKD4 fluctuating baseline about 1.9, chronic hypoxic respiratory failure on 3 L of oxygen continuously, asthma, obstructive sleep apnea not using cpap, interstitial lung disease, coronary disease status post stent, combined systolic and diastolic heart failure, paroxysmal atrial fibrillation on Eliquis, peripheral vascular disease, diabetes type 2, hypertension, dyslipidemia, DVT, peripheral vascular disease, class 3 obesity. she has been bedbound for several months after L tib/fib fracture early 2023 and unfortunately refractured doing PT during admissoin here in February for pneumonia and ELOY. Also had covid last month at [facility]. She takes 60 mg daily torsemide. She had a dose of 40 mg IV lasix, was started on FR 1.5L. urine studies are pending; repeat bmp is slated for 1800. On evaluation shortly after arrival to the room, pt feels very weak uncomfortable and tired; she complains of L chest pain. has had intermittent confusion per report. pt denies n/v. not sure about edema; RN suspects that pt may be having urinary retention since pt voids often; webster was placed w/ 600 mL immediate output despite this. today she is needing 8L 02nc to maintain sats. Allergies Allergy/AdvReac Type Severity Reaction Status Date / Time fluticasone Allergy Severe WATER ON Verified 03/09/24 18:38 LUNGS, SHORT OF BREATH mold Allergy Severe BLACK Verified 03/09/24 18:38 MOLD--SEE COMMENT salmeterol Allergy Severe WATER ON Verified 03/09/24 18:38 LUNGS, SHORT OF BREATH benzocaine Allergy Unknown Unknown Verified 03/09/24 18:38 Corticosteroids Allergy Anaphylaxis Verified 03/09/24 18:38 (Glucocorticoids) hydrocodone [From Vicodin] AdvReac Intermediate hallucinati Verified 03/09/24 18:38 ons oxycodone AdvReac Intermediate Hallucinati Verified 03/09/24 18:38 ng prednisone AdvReac Intermediate HYPERGLYCEM Verified 03/09/24 18:38 IA propoxyphene AdvReac Intermediate DARVOCET--INSOMNIA, Verified 03/09/24 18:38 EXCESSIVE DRY MOUTH VINYL COVERING Allergy Intermediate Rash Uncoded 03/09/24 18:38 Home Medications Medication Instructions Recorded Confirmed Type clopidogrel 75 mg tablet 75 mg PO QAM 10/01/19 06/20/24 History loratadine 10 mg tablet 10 mg PO QAM 10/01/19 06/20/24 History montelukast 10 mg tablet 10 mg PO QAM 10/01/19 06/20/24 History rosuvastatin 40 mg tablet 40 mg PO QAM 09/22/21 06/20/24 History insulin glargine 100 unit/mL (3 45 unit subcut DAILY 03/20/22 06/20/24 History mL) subcutaneous pen (Lantus Solostar U-100 Insulin) gabapentin 100 mg capsule 200 mg PO TID 12/12/22 06/20/24 History losartan 25 mg tablet 25 mg PO QAM 12/12/22 06/20/24 History magnesium oxide 400 mg PO QAM 12/12/22 06/20/24 History benzonatate 100 mg capsule 100 mg PO TID PRN Cough 10/28/23 06/20/24 History polyethylene glycol 3350 17 17 g PO DAILY Constipation 12/08/23 06/20/24 History gram/dose oral powder (Miralax) metoprolol succinate 50 mg 50 mg PO QAM 03/09/24 06/20/24 History tablet,extended release 24 hr apixaban 5 mg tablet (Eliquis) 2.5 mg (1/2 x 5 mg) PO BID #0 tabs 03/16/24 06/20/24 Rx torsemide 20 mg tablet 60 mg (3 x 20 mg) PO QAM #90 tabs 03/16/24 06/20/24 Rx albuterol sulfate 2.5 mg/3 mL 2.5 mg (3 mL) inhalation Q4 PRN 04/16/24 06/20/24 Rx (0.083 %) solution for nebulization Wheezing #180 mL tiotropium bromide 1.25 2 puff inhalation DAILY #4 grams 04/16/24 06/20/24 Rx mcg/actuation mist for inhalation (Spiriva Respimat) acetaminophen 500 mg tablet 1,000 mg PO BID 06/20/24 06/20/24 History bisacodyl 10 mg rectal suppository 10 mg AR DAILY PRN Constipation 06/20/24 06/20/24 History (Dulcolax (bisacodyl)) hydrocodone 5 mg-acetaminophen 325 1 tab PO Q6H PRN Pain 06/20/24 06/20/24 History mg tablet insulin lispro 100 unit/mL 1 sliding scale dose subcut 06/20/24 06/20/24 History subcutaneous solution (Humalog USEASDIRECTD U-100 Insulin) ipratropium 0.5 mg-albuterol 3 mg 3 ml inhalation .Q2H PRN sob/wheeze 06/20/24 06/20/24 History (2.5 mg base)/3 mL nebulization soln levofloxacin 500 mg tablet 500 mg PO .Q OTHER DAY 06/20/24 06/20/24 History magnesium hydroxide 400 mg/5 mL 30 ml PO DAILY PRN Constipation 06/20/24 06/20/24 History oral suspension (Milk of Magnesia) menthol-sorbitol lozenges 1 martell mucous membrane Q2H PRN Cough 06/20/24 06/20/24 History sodium chloride 0.65 % nasal spray 1 spray intranasal Q1H PRN dry nose 06/20/24 06/20/24 History aerosol (Saline Nasal) sodium phosphates 19 gram-7 118 ml AR DAILY PRN Constipation 06/20/24 06/20/24 History gram/118 mL enema (Fleet Enema) Patient History Medical History (Updated 06/20/24 @ 17:29 by Kathie Graff MD, PhD) CKD (chronic kidney disease) stage 4, GFR 15-29 ml/min Chronic hyponatremia Nausea & vomiting Granulomatous interstitial lung disease Physical deconditioning Surgical History History of total knee arthroplasty 2005; bilateral History of cardiac cath 2014 - normal coronary arteries; Dr Jorgensen at [facility] [place] History of revascularization procedure of lower extremity fem/pop artery revascularization RLE; 09/2017; Dr Gill at [facility] [place] Family History Mother Leukemia Son Asthma Brother Stroke Social History Smoking Status: Never smoker Second Hand Exposure: No; Do You Dip or Chew Tobacco: No; Hx Alcohol Use: No Hx Substance Use: No Preferred Language: Occitan Communication Ability: Effective Merchandising Director Required: No Beliefs That Will Affect Care: None marital status: Current Living Situation: Snf Current Living Situation Comment: In a 2 story house with Feels Safe at Home: Yes Assistive Devices: Denture - Upper, Denture - Lower and Glasses Review of Systems 2 Review of Systems: All systems reviewed & are unremarkable except as noted in HPI & below Physical Exam 2 Constitutional: well developed, well nourished, + morbidly obese and + in distress (mild); no acute distress Eyes: EOM intact bilaterally ENMT: Mouth: + dry oral mucous membranes Respiratory: normal respiratory effort Auscultation: + diminished lung sounds, + crackles (fine diffuse) and + wheezes (occasional inspiratory) Cardiovascular: Rate/Rhythm: regular rate (HS distant) and regular rhythm E xtremities: no edema Gastrointestinal (Abdomen): Inspection/Auscultation: normal bowel sounds P ercussion/Palpation: abdomen soft; abdomen nontender Musculoskeletal: Extremities: strength 5/5 throughout Skin: no rashes, warm and dry Neurologic: alvarez, fluent speech, no tremor, anxcious Results & Data Vital Signs (Past 12 Hours) Vital Signs Temp Pulse Pulse Resp BP BP Pulse Ox 06/20/24 14:00 80 20 128/101 H 95 06/20/24 12:10 79 06/20/24 11:51 37.0 C 85 18 122/67 96 06/20/24 11:51 37.0 C 85 17 122/67 96 O2 Del Method O2 Flow Rate 06/20/24 14:00 Nasal Cannula 8 06/20/24 12:10 06/20/24 11:51 Nasal Cannula 8 06/20/24 11:51 Nasal Cannula 8 Laboratory Results 06/20/24 12:15 06/20/24 12:15 Diagnostic Findings cxr (images personally reviewed) 1. Cardiomegaly and cardiac pacemaker with pulmonary vascular congestion. 2. Suspect small pleural effusions. 3. Changes of chronic interstitial/fibrotic lung disease are again noted. 4. Superimposed airspace opacities in the right mid to lower lung are not excluded. This could represent mild pulmonary edema and/or an infectious/inflammatory pneumonitis. Clinical correlation will be required and radiographic follow-up to resolution is recommended.
[2024-06-20] MEDS ORDERED: DOCUSATE SODIUM/SENNA 50/8.6MG TAB PO PRN (16:59)
[2024-06-20] MEDS ORDERED: POLYETHYLENE (MIRALAX) 17 GM PACK PO PRN (16:59)
[2024-06-20] MEDS ORDERED: NON-FORMULARY MEDICATION (Insulin Aspart U-100 [Novolog Flexpen U-100 Insulin] 100 unit/mL SQ SCH (17:00)
[2024-06-20 17:47] LABS: Urine Potassium 23.1 mmol/L
[2024-06-20] MEDS ORDERED: PHARMACY GLYCEMIC MGMT CONSULT PRN (17:57)
[2024-06-20] MEDS: INSULIN ASPART PER UNIT CHARGE SC SCH (17:58)
[2024-06-20 18:02] LABS: Appearance Urine Cloudy (Clear); Bacteria Urine Automated None Seen (None Seen); Bilirubin Urine Negative (Negative); Blood Urine 1+ (Negative); Color Urine Yellow; Epithelial Cell Urine Auto 0-2 /hpf (0-2); Glucose Urine UA Negative (Negative); Ketones Urine Negative (Negative); Leukocyte Esterase Urine 3+ (Negative); Nitrite Urine Negative (Negative); Protein Urine 1+ (Negative); RBC Urine Automated 0-2 /hpf (0-2); Specific Gravity Urine 1.006 (1.000-1.030); Urobilinogen Urine Negative (Negative); WBC Urine Automated >50 /hpf (0-5); pH Urine 7.5 (4.5-7.5)
[2024-06-20] MEDS ORDERED: GLUCOSE 10 TAB/TUBE PO PRN (18:15)
[2024-06-20] MEDS ORDERED: GLUCOSE 40% GEL 15 GM TUBE PO PRN (18:15)
[2024-06-20] MEDS ORDERED: GLUCAGON FOR INJ 1 MG VIAL SQ PRN (18:15)
[2024-06-20] MEDS ORDERED: DEXTROSE 50% 50 ML SYRINGE IV PRN (18:15)
[2024-06-20] MEDS ORDERED: CARBOHYDRATES FOR HYPOGLYCEMIA PO PRN (18:15)
[2024-06-20 20:06] LABS: BUN Creatinine Ratio 14.5 (10-20); Calcium 9.2 mg/dl (8.6-10.3); Creatinine Clr Calc Pharmacy 30.7 ml/min
[2024-06-20] MEDS: ZOLPIDEM TARTRATE 5 MG TAB PO PRN (20:34)
[2024-06-20] MEDS: GABAPENTIN 100 MG CAP PO SCH (20:34)
[2024-06-20] MEDS: APIXABAN 2.5 MG TAB PO SCH (20:35)
[2024-06-21] MEDS: ALBUTEROL 0.083% NEBU SOLN 3 ML VIAL INH PRN (03:12)
[2024-06-21] MEDS: DOXYCYCLINE HYCLATE 100 MG in DEXTROSE 5% MINI-B 100 ML IV SCH (05:45)
--- NOTE | 2024-06-21 08:32 | Nephrology Progress Note ---
Date of Service June 21, 2024 Assessment & Plan (1) Hyponatremia with excess extracellular fluid volume: Plan: hypervolemic hyponatremia, complicated by likely progressive lung disease, in a patient w/ polydipsia/low solute diet based on urine studies. presented w/ sNa 119 at 0440 06/10, urine osms 165, Fuad 41, uCl 47; sg on UA 1006 >>>with no labs do NOT recommend giving further lasix; getting labs needs to be a priority for this patient; phlebotomy in room currently; did d/w RN > not clear why labs delayed AM labs were delayed >> notable for sNa 122, c02 40 (baseline high 30s) -target sNa for AM tomorrow am is no more than 128 -continue 1.5L FR; may need to tighten -protein shakes and constipation therapies do NOT count toward FR; contact hospitalist if needing constipation therapy w/ high fluid volume more often than q 3days -encourage protein intake > aim for at least 80 gm daily > dietary consulted for recommendations, pt education -will give lasix 60 mg IV bid (limited by bicarb elevation) << tid order adjusted -sodium should also improve markedly w/ FR given how much she was drinking -no potassium supplements indicated currently -bid BMP acceptable given challenges getting labs Care coordinated w/ Dr Gilman via TText re lasix dosing and rationale, f/u labs, Na targets. we are in agreement. (2) CKD (chronic kidney disease) stage 4, GFR 15-29 ml/min: Plan: renal function at baseline, 1.9 creat. not oliguric. K 5 but will go down w/ diuresis Admission and Anticipated Discharge Date Admission Date: June 20, 2024 Subjective 02 needs stable/slighly higher > on 10L high flow NC this AM but after lasix > 7L; no labs since last evening when sNa stable but bordering critical at 118 but did get some later in AM. c/o hurting "all over," no one spot more than others; denies worse sob or cough. denies edema. can't localize pain. ate almost no breakfast. Review of Systems 2 Review of Systems: All systems reviewed & are unremarkable except as noted in Subjective Physical Exam 2 Constitutional: well developed, well nourished and + morbidly obese; no acute distress Eyes: EOM intact bilaterally ENMT: Mouth: + dry oral mucous membranes Respiratory: normal respiratory effort Auscultation: + diminished lung sounds (ant exam) Cardiovascular: Rate/Rhythm: regular rate (HS distant) and regular rhythm E xtremities: no edema Gastrointestinal (Abdomen): Inspection/Auscultation: normal bowel sounds P ercussion/Palpation: abdomen soft; abdomen nontender Musculoskeletal: Extremities: strength 5/5 throughout Skin: no rashes, warm and dry Psychiatric: Affect: + anxious affect Insight: + limited insight Results & Data Vital Signs (Past 12 Hours) Vital Signs Temp Pulse Pulse Resp BP Pulse Ox O2 Del Method 06/21/24 07:26 36.5 C 69 22 124/88 94 Nasal Cannula 06/21/24 03:23 36.4 C L 60 23 126/61 96 High Flow Nasal Cannula 06/20/24 23:15 36.6 C 60 21 117/70 100 High Flow Nasal Cannula 06/20/24 21:52 60 06/20/24 20:30 High Flow Nasal Cannula O2 Flow Rate 06/21/24 07:26 10.0 06/21/24 03:23 06/20/24 23:15 06/20/24 21:52 06/20/24 20:30 8 Laboratory Results 06/21/24 08:30 06/21/24 08:30
[2024-06-21 08:56] LABS: Basophils # (auto) 0.06 K/uL (0.00-0.20); Basophils % (auto) 0.8 %; Eosinophils # (auto) 0.73 K/uL (0.00-0.50); Eosinophils % (auto) 9.2 %; Hematocrit (blood only) 34.4 % (37.0-47.0); Hemoglobin 11.1 g/dl (12.0-16.0); Immature Granulocytes # (auto) 0.03 K/uL (0.01-0.20); Immature Granulocytes % (auto) 0.4 %; Lymphocytes % (auto) 7.6 %; Mean Corpuscular Hemoglobin 30.1 pg (25.0-34.0); Mean Corpuscular Hgb Conc 32.3 g/dL (32.0-36.0); Mean Corpuscular Volume 93.2 fL (80.0-100.0); Mean Platelet Volume 9.5 fL (9.4-12.4); Monocytes # (auto) 0.85 K/uL (0.11-0.59); Monocytes % (auto) 10.7 %; Neutrophils # (auto) 5.66 K/uL (1.40-6.50); Neutrophils % (auto) 71.3 %; Platelet Count 175 K/uL (130-400); RDW Coefficient of Variation 15.9 % (11.5-14.5); RDW Standard Deviation 54.4 fL (36.4-46.3); Red Blood Count 3.69 M/uL (4.20-5.40); White Blood Count 7.93 K/ul (4.8-10.8)
[2024-06-21] MEDS ORDERED: LANTUS PER UNIT CHARGE SC SCH (09:00)
[2024-06-21 09:11] LABS: BUN Creatinine Ratio 14.2 (10-20); Calcium 9.2 mg/dl (8.6-10.3); Creatinine Clr Calc Pharmacy 31.5 ml/min; Magnesium 1.8 mg/dl (1.7-2.4); Phosphorus 3.9 mg/dl (2.5-4.9); Potassium 4.8 mmol/L (3.5-5.1)
[2024-06-21] MEDS: MULTIVITAMIN TAB PO SCH (10:09)
[2024-06-21] MEDS: LORATADINE 10 MG TAB PO SCH (10:09)
[2024-06-21] MEDS: ROSUVASTATIN CALCIUM 20 MG TAB PO SCH (10:09)
[2024-06-21] MEDS: MONTELUKAST SODIUM 10 MG TABLET PO SCH (10:09)
[2024-06-21] MEDS: MAGNESIUM OXIDE 400 MG TAB PO SCH (10:09)
[2024-06-21] MEDS: LOSARTAN POTASSIUM 25 MG TAB PO SCH (10:09)
[2024-06-21] MEDS: CLOPIDOGREL BISULFATE 75 MG TAB PO SCH (10:10)
[2024-06-21] MEDS: METOPROLOL SUCC 50MG EXT REL TAB PO SCH (10:10)
[2024-06-21] MEDS: CYANOCOBALAMIN (B-12) 500 MCG TABLET PO SCH (10:10)
[2024-06-21] MEDS: UMECLIDINIUM BROMIDE 62.5MCG/BLISTER 7 PUFFS/INHALER INH SCH (10:11)
[2024-06-21] MEDS: FUROSEMIDE 40 MG/4 ML VIAL IV SCH ×2 (10:24→16:17)
--- NOTE | 2024-06-21 11:30 | Hospitalist Progress Note ---
Date of Service June 21, 2024 Assessment & Plan (1) Acute and chronic respiratory failure, unspecified whether with hypoxia or hypercapnia: Plan: History of chronic respiratory failure secondary to ILD, asthma and sleep apnea on 3 L of oxygen Possible bilateral pneumonia/pneumonitis Possible Acute on Chronic CHF presents with shortness of breath for the last 3 days associated with cough and productive of whitish-yellow phlegm Continue on intravenous ceftriaxone doxycycline for possible superimposed pneumonitis/pneumonia Will continue with her usual bronchodilators and nebulized bronchodilators iv diuretics as per nephrology (2) Acute hyponatremia: Plan: History of chronic hyponatremia Presented with increasing weakness Sodium level 118 on admission Urine OSm of 165, Urine Na of 41 Continue iv diuresis with Lasix 60mg tid Nephrology on board Repeat BMP at 6 pm. (3) ILD (interstitial lung disease): Plan: Has been under care of quality systems engineer on 3L of oxygen at baseline. 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: Plan: The patient had a fall while working with PT on 03/13/2024 and since then noted to have periprosthetic left knee fracture Ortho service was consulted and managed conservatively She has been [facility] rehab facility since then PT/OT evaluation Plan DVT prophylaxis has been on Eliquis 2.5 mg twice daily, continue CODE STATUS amphibian crewmember spent evaluating patient, direct bedside care, chart review, placing orders, interpretation of diagnostic studies, discussion with consultants, patient, and family members, as well as other required patient management activities is 50 minutes Please note the above document was generated using voice recognition software. It may contain grammatical, syntax or spelling errors. Any formal questions or concerns about the content, text or information contained within the body of this dictation should be directly addressed to the provider for clarification Admission and Anticipated Discharge Date Admission Date: June 20, 2024 Subjective Patient seen and examined at bedside She appears tired and sleepy; awakened by voice. Reports that she has not been feeling well for past 2 months Oxygen requirement slightly improved to 8 L by nasal cannula Review of Systems Review of Systems: All systems reviewed & are unremarkable except as noted in Subjective Physical Exam Physical Exam: Constitutional: Awake, oriented to self and place. Not in distress. Respiratory: Decreased breath sound at bases Cardiovascular: RRR, no murmur, no edema Vessels: no JVD or carotid bruit Chest: normal inspection of chest Abdomen: normal bowel sounds, soft, nontender, no hepatosplenomegaly Musculoskeletal: no cyanosis or clubbing, extremities motor strength 5/5 Skin: no rashes, warm and dry normal turgor Neurologic: PERRL, EOMI, accommodation nl, no face palsy, no dysarthria CN's II- XI intact bilaterally and moves all extremities Psychiatric: A+Ox3, euthymic affect Results & Data Results & Data Vital Signs (Past 12 Hours) Vital Signs Temp Pulse Resp BP Pulse Ox O2 Del Method O2 Flow Rate 06/21/24 11:05 36.4 C L 65 130/74 93 Nasal Cannula 8.0 06/21/24 07:26 36.5 C 69 22 124/88 94 Nasal Cannula 10.0 06/21/24 03:23 36.4 C L 60 23 126/61 96 High Flow Nasal Cannula (1) Acute and chronic respiratory failure, unspecified whether with hypoxia or hypercapnia Respiratory failure complication: unspecified whether with hypoxia or hypercapnia Qualified Code(s): J96.20 - Acute and chronic respiratory failure, unspecified whether with hypoxia or hypercapnia (8) HTN (hypertension) Hypertension type: unspecified Qualified Code(s): I10 - Essential (primary) hypertension
--- NOTE | 2024-06-21 12:07 | Pulmonary Consultation ---
Date of Consultation June 21, 2024 Assessment & Plan (1) ILD (interstitial lung disease): (2) Acute and chronic respiratory failure, unspecified whether with hypoxia or hypercapnia: Respiratory failure complication: unspecified whether with hypoxia or hypercapnia Qualified Code(s): J96.20 - Acute and chronic respiratory failure, unspecified whether with hypoxia or hypercapnia (3) Acute diastolic heart failure: Plan Patient has a history of documented noncompliance with CPAP and/or BiPAP therapy. She has a history of OHS and has refused further evaluation or treatment. She has severe pulmonary hypertension based on echo from 03/10/2024 with an estimated RVSP of 66 mmHg. 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 Treatment for this is diuresis and treating the underlying lung disease. Unfortunately, patient is refusing treatment of the underlying lung disease i.e. OHS with BiPAP therapy and weight loss. She also has evidence of interstitial lung disease of unclear etiology. 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 It does not appear that she underwent any medi astinal biopsies or lung biopsies. It has also been postulated in the past that she may have hypersensitivity pneumonitis due to a positive hypersensitivity panel. She adamantly refuses the use of prednisone therapy or any immunosuppressive therapy as she states that prednisone and prednisone like therapy stop her from breathing. I tried to clarify the use of prednisone with her, but she was adamant that she did not want to be placed on any prednisone therapy or similar immunosuppressive therapy. Unfortunately, I am uncertain what I can add to her care at this time as the patient is refusing BiPAP therapy and empiric prednisone therapy. She is too unstable and very high risk to undergo surgical lung biopsy or even bronchoscopic biopsy given her significant comorbidities. I think the best thing at this time would be to continue with aggressive diuresis, monitor her daily weights, BNP and clinical symptoms. I would recommend repeating an echocardiogram to see if her pulmonary hypertension is worsening. If there is evidence of worsening pulmonary hypertension, can consider right heart catheterization and referral to a tertiary center for pulmonary hypertension management. A psychiatric evaluation may also be worthwhile to help determine medical decision-making capacity given her evidence of delirium. This was discussed with the hospitalist who is in agreement with the plan. Otherwise pulmonary to sign off at this time. Please call with questions or concerns. Thank you for the consult. History of Present Illness Reason for Consultation: Acute on chronic respiratory failure, ILD Requesting Physician: Dr. Olivier Attending Physician: Dylan Gilman MD History of Present Illness 78-year-old female known to the pulmonary division for chronic respiratory failure related to ILD and diastolic heart failure presenting to the hospital due to ongoing shortness of breath. Patient requiring up to 8 L of oxygen which is up from her baseline of 4 L. Patient is very sedentary at baseline. She is a poor historian. Collateral history is obtained by review of the chart and discussion with nursing. Patient endorses a chronic cough with occasional brown phlegm. Denies any fevers, chills or night sweats. She states that she is chronically short of breath. She is currently being diuresed. She is hyponatremic and this is felt to be hypervolemia. Her hyponatremia is improving with diuresis. Chest x-ray revealed cardiomegaly and small pleural effusions. Underlying ILD seen again as well. Patient has adamantly refused BiPAP therapy and CPAP therapy in the past. She has also refused prednisone therapy and bronchoscopy in the past. Allergies Allergy/AdvReac Type Severity Reaction Status Date / Time fluticasone Allergy Severe WATER ON Verified 03/09/24 18:38 LUNGS, SHORT OF BREATH mold Allergy Severe BLACK Verified 03/09/24 18:38 MOLD--SEE COMMENT salmeterol Allergy Severe WATER ON Verified 03/09/24 18:38 LUNGS, SHORT OF BREATH benzocaine Allergy Unknown Unknown Verified 03/09/24 18:38 Corticosteroids Allergy Anaphylaxis Verified 03/09/24 18:38 (Glucocorticoids) hydrocodone [From Vicodin] AdvReac Intermediate hallucinati Verified 03/09/24 18:38 ons oxycodone AdvReac Intermediate Hallucinati Verified 03/09/24 18:38 ng prednisone AdvReac Intermediate HYPERGLYCEM Verified 03/09/24 18:38 IA propoxyphene AdvReac Intermediate DARVOCET--INSOMNIA, Verified 03/09/24 18:38 EXCESSIVE DRY MOUTH VINYL COVERING Allergy Intermediate Rash Uncoded 03/09/24 18:38 Home Medications Medication Instructions Recorded Confirmed Type clopidogrel 75 mg tablet 75 mg PO QAM 10/01/19 06/20/24 History loratadine 10 mg tablet 10 mg PO QAM 10/01/19 06/20/24 History montelukast 10 mg tablet 10 mg PO QAM 10/01/19 06/20/24 History rosuvastatin 40 mg tablet 40 mg PO QAM 09/22/21 06/20/24 History insulin glargine 100 unit/mL (3 45 unit subcut DAILY 03/20/22 06/20/24 History mL) subcutaneous pen (Lantus Solostar U-100 Insulin) gabapentin 100 mg capsule 200 mg PO TID 12/12/22 06/20/24 History losartan 25 mg tablet 25 mg PO QAM 12/12/22 06/20/24 History magnesium oxide 400 mg PO QAM 12/12/22 06/20/24 History benzonatate 100 mg capsule 100 mg PO TID PRN Cough 10/28/23 06/20/24 History polyethylene glycol 3350 17 17 g PO DAILY Constipation 12/08/23 06/20/24 History gram/dose oral powder (Miralax) metoprolol succinate 50 mg 50 mg PO QAM 03/09/24 06/20/24 History tablet,extended release 24 hr apixaban 5 mg tablet (Eliquis) 2.5 mg (1/2 x 5 mg) PO BID #0 tabs 03/16/24 06/20/24 Rx torsemide 20 mg tablet 60 mg (3 x 20 mg) PO QAM #90 tabs 03/16/24 06/20/24 Rx albuterol sulfate 2.5 mg/3 mL 2.5 mg (3 mL) inhalation Q4 PRN 04/16/24 06/20/24 Rx (0.083 %) solution for nebulization Wheezing #180 mL tiotropium bromide 1.25 2 puff inhalation DAILY #4 grams 04/16/24 06/20/24 Rx mcg/actuation mist for inhalation (Spiriva Respimat) acetaminophen 500 mg tablet 1,000 mg PO BID 06/20/24 06/20/24 History bisacodyl 10 mg rectal suppository 10 mg AZ DAILY PRN Constipation 06/20/24 06/20/24 History (Dulcolax (bisacodyl)) hydrocodone 5 mg-acetaminophen 325 1 tab PO Q6H PRN Pain 06/20/24 06/20/24 History mg tablet insulin lispro 100 unit/mL 1 sliding scale dose subcut 06/20/24 06/20/24 History subcutaneous solution (Humalog USEASDIRECTD U-100 Insulin) ipratropium 0.5 mg-albuterol 3 mg 3 ml inhalation .Q2H PRN sob/wheeze 06/20/24 06/20/24 History (2.5 mg base)/3 mL nebulization soln levofloxacin 500 mg tablet 500 mg PO .Q OTHER DAY 06/20/24 06/20/24 History magnesium hydroxide 400 mg/5 mL 30 ml PO DAILY PRN Constipation 06/20/24 06/20/24 History oral suspension (Milk of Magnesia) menthol-sorbitol lozenges 1 martell mucous membrane Q2H PRN Cough 06/20/24 06/20/24 History sodium chloride 0.65 % nasal spray 1 spray intranasal Q1H PRN dry nose 06/20/24 06/20/24 History aerosol (Saline Nasal) sodium phosphates 19 gram-7 118 ml AZ DAILY PRN Constipation 06/20/24 06/20/24 History gram/118 mL enema (Fleet Enema) Patient History Medical History (Updated 06/21/24 @ 12:01 by Andrea Parker MD) CKD (chronic kidney disease) stage 4, GFR 15-29 ml/min Chronic hyponatremia Nausea & vomiting Granulomatous interstitial lung disease Physical deconditioning Surgical History History of total knee arthroplasty 2005; bilateral History of cardiac cath 2014 - normal coronary arteries; Dr Jorgensen at [facility] [place] History of revascularization procedure of lower extremity fem/pop artery revascularization RLE; 09/2017; Dr Gill at [facility] [place] Family History Mother Leukemia Son Asthma Brother Stroke Social History (Updated 06/20/24 @ 17:18 by Cary Salas RN) Smoking Status: Never smoker Second Hand Exposure: No; Do You Dip or Chew Tobacco: No; Tobacco Cessation Education Requested by Patient: No Hx Alcohol Use: No Hx Substance Use: No Preferred Language: Argentine Communication Ability: Effective Development And Planning Engineer Required: No Beliefs That Will Affect Care: None marital status: Current Living Situation: Intermediate Current Living Situation Comment: In a 2 story house with Feels Safe at Home: Yes Safety Concerns: Feels Safe At This Time Assistive Devices: Denture - Upper, Denture - Lower and Glasses Review of Systems Review of Systems: 10 point ROS limited due to patient's co gnition and encephalopathy. She denies any chest pain at present. She does endorse shortness of breath at rest. Results & Data Results & Data Vital Signs (Past 12 Hours) Vital Signs Temp Pulse Resp BP Pulse Ox O2 Del Method O2 Flow Rate 06/21/24 11:05 36.4 C L 65 130/74 93 Nasal Cannula 8.0 06/21/24 07:26 36.5 C 69 22 124/88 94 Nasal Cannula 10.0 06/21/24 03:23 36.4 C L 60 23 126/61 96 High Flow Nasal Cannula PG Care Time/CCT Total # of Minutes Spent Total Time Spent with Patient: Total time spent is greater than 50% in coordination of care (as documented) at patient's floor/unit and/or counseling patient: Coding Level of Care Code 92058 INT INP/OBS CARE 375MIN Diagnoses ILD (interstitial lung disease) J84.9 Acute and chronic respiratory failure, unspecified whether with hypoxia or hypercapnia J96.20 Respiratory failure complication: unspecified whether with hypoxia or hypercapnia Acute diastolic heart failure I50.31
[2024-06-21 15:46] LABS: iSTAT Arterial Blood Gas HCO3 41 meg/L (19-24); iSTAT Arterial Blood Gas pCO2 60 mmHg (35-46); iSTAT Arterial Blood Gas pH 7.44 (7.35-7.45); iSTAT Arterial Blood Gas pO2 86 mmHg (80-95); iSTAT Carbon Dioxide 43 mmol/L (24-31); iSTAT Hematocrit 35 % (37-47); iSTAT Hemoglobin 11.9 g/dl (12.0-16.0); iSTAT Potassium 4.1 mmol/L (3.3-5.0); iSTAT Sodium 122 mmol/L (135-144)
--- NOTE | 2024-06-21 15:48 | XRay Report ---
XR chest 1V portable CLINICAL HISTORY: SOB TECHNIQUE: Single frontal radiograph of the chest was obtained. Comparison: Comparison is made to chest radiograph 06/20/2024 FINDINGS: Lines and tubes are stable. The cardiomediastinal silhouette is normal. Extensive interstitial and po ssible airspace opacities noted. No evidence of pleural effusion or pneumothorax. IMPRESSION: Redemonstration of extensive interstitial and possible airspace opacities. ACT 112: Negative or not required by law. Electronically signed by: Mahesh Evans M.D. 06/21/2024 3:47 PM
[2024-06-21 18:53] LABS: BUN Creatinine Ratio 14.3 (10-20); Calcium 9.2 mg/dl (8.6-10.3); Creatinine Clr Calc Pharmacy 30.5 ml/min; Potassium 4.4 mmol/L (3.5-5.1)
--- NOTE | 2024-06-22 05:52 | Electrocardiogram Report ---
Test Reason : Blood Pressure : */* mmHG Vent. Rate : 71 BPM Atrial Rate : 340 BPM P-R Int : * ms QRS Dur : 140 ms QT Int : 420 ms P-R-T Axes : * -27 132 degrees QTcB Int : 456 ms Ventricular-paced rhythm Abnormal ECG When compared with ECG of 09-Mar-2024 14:06, Vent. rate has decreased by 6 bpm Confirmed by Ryne Lima ([id number]) on 06/22/2024 5:51:56 AM Referred By: REFERRED SELF Confirmed By: Ryne Lima
[2024-06-22 06:17] LABS: Basophils # (auto) 0.06 K/uL (0.00-0.20); Basophils % (auto) 0.6 %; Eosinophils # (auto) 0.36 K/uL (0.00-0.50); Eosinophils % (auto) 3.6 %; Hematocrit (blood only) 33.4 % (37.0-47.0); Hemoglobin 10.6 g/dl (12.0-16.0); Immature Granulocytes # (auto) 0.04 K/uL (0.01-0.20); Immature Granulocytes % (auto) 0.4 %; Lymphocytes # (auto) 0.42 K/uL (1.20-3.40); Lymphocytes % (auto) 4.2 %; Mean Corpuscular Hemoglobin 29.9 pg (25.0-34.0); Mean Corpuscular Hgb Conc 31.7 g/dL (32.0-36.0); Mean Corpuscular Volume 94.1 fL (80.0-100.0); Mean Platelet Volume 9.3 fL (9.4-12.4); Monocytes # (auto) 1.22 K/uL (0.11-0.59); Monocytes % (auto) 12.1 %; Neutrophils # (auto) 7.97 K/uL (1.40-6.50); Neutrophils % (auto) 79.1 %; Platelet Count 176 K/uL (130-400); RDW Coefficient of Variation 16.1 % (11.5-14.5); RDW Standard Deviation 55.7 fL (36.4-46.3); Red Blood Count 3.55 M/uL (4.20-5.40); White Blood Count 10.07 K/ul (4.8-10.8)
[2024-06-22 06:57] LABS: Albumin Level 2.7 gm/dl (3.4-5.0); Bilirubin,Total 0.4 mg/dl (0.2-1.0); Calcium 9.3 mg/dl (8.6-10.3); Potassium 4.1 mmol/L (3.5-5.1)
[2024-06-22 07:03] LABS: Albumin Globulin Ratio 0.7 (0.9-2); BUN Creatinine Ratio 15.2 (10-20); Creatinine Clr Calc Pharmacy 30.5 ml/min; Total Protein 6.7 gm/dl (6.0-8.3)
[2024-06-22 07:05] LABS: Estimated Average Glucose 180 mg/dl; Hemoglobin A1C 7.9 % (4.5-5.6)
--- NOTE | 2024-06-22 09:04 | Nephrology Progress Note ---
Date of Service June 22, 2024 Assessment & Plan (1) Hyponatremia with excess extracellular fluid volume: Plan: hypervolemic hyponatremia, complicated by likely progressive lung disease in the setting of noncompliance with pulmonary therapies, in a patient w/ polydipsia/low solute diet based on admission urine studies. presented w/ sNa 119 at 0440 06/10, urine osms 165, Fuad 41, uCl 47; sg on UA 1006 >>>today's labs notable for sNa 126, c02 40 (baseline high 30s) -target sNa for AM tomorrow am is no more than 131 -continue 1.5L FR; no need to tighten -protein shakes and constipation therapies do NOT count toward FR; contact hospitalist if needing constipation therapy w/ high fluid volume more often than q 3days -encourage protein intake > aim for at least 80 gm daily > >>>to maintain nutrition, pls feed pt -will continue lasix 60 mg IV bid (limited by bicarb elevation) -sodium should also improve markedly w/ FR given how much she was drinking -started low dose potassium supplementation > 10 mEq bid -daily BMP reasonable at this point -defer to primary service whether to repeat TTE as per pulm recs Care coordinated w/ Dr Gilman by phone regarding lasix dose, target sodium, nutrition goals; we are in agreement. (2) CKD (chronic kidney disease) stage 4, GFR 15-29 ml/min: Plan: renal function at baseline still, 1.9 creat. not oliguric. K 4.1 but will go down w/ diuresis; K supplements as above Admission and Anticipated Discharge Date Admission Date: June 20, 2024 Subjective ate oatmeal and full boost today after being fed; desats w/ minimal activity > today w/ rolling over to clean after BM and on bipap; c/o pain everywhere; no nausea; rest of ROS limited by bipap Review of Systems 2 Review of Systems: Other (limited by bipap) Physical Exam 2 Constitutional: well developed (on bipap), well nourished and + morbidly obese; no acute distress Eyes: EOM intact bilaterally ENMT: Mouth: + dry oral mucous membranes Respiratory: normal respiratory effort Auscultation: + diminished lung sounds (ant exam) and + wheezes (occasional inspiratory) Cardiovascular: Rate/Rhythm: regular rate (HS distant) and regular rhythm E xtremities: no edema Musculoskeletal: Extremities: strength 5/5 throughout Skin: no rashes, warm and dry Psychiatric: Affect: + anxious affect Insight: + limited insight Results & Data Vital Signs (Past 12 Hours) Vital Signs Temp Pulse Pulse Resp BP Pulse Ox O2 Del Method 06/22/24 08:40 36.6 C 60 15 129/57 L 97 Nasal Cannula 06/22/24 07:17 60 24 100 06/22/24 04:16 60 20 95 06/22/24 02:50 36.5 C 60 18 122/57 L 98 CPAP 06/21/24 23:13 37.1 C 60 14 127/75 95 CPAP 06/21/24 23:08 60 06/21/24 22:44 60 20 95 O2 Flow Rate FiO2 06/22/24 08:40 7 06/22/24 07:17 50 06/22/24 04:16 40 06/22/24 02:50 06/21/24 23:13 06/21/24 23:08 06/21/24 22:44 60 Laboratory Results 06/22/24 05:36 06/22/24 05:36
[2024-06-22 09:20] VITALS: RESP 18
[2024-06-22 11:27] VITALS: BP 137/83; PULSE 64; TEMP 98.2; O2SAT 94
[2024-06-22] MEDS ORDERED: ONDANSETRON INJ 2 MG/ML 2 ML VIAL IV PRN (11:27)
--- NOTE | 2024-06-22 11:31 | Communication Note ---
Date of Service: June 22, 2024 Goals of care discussed with patient's at bedside. He acknowledges that patient has not been doing well since her last hospitalization; has spent most of her time in bed. She feels her quality of life has significantly deteriorated. We discussed CODE STATUS; based on the discussion CODE STATUS changed to DNR/DNI. Comfort care measures are ordered. Plan to have [facility] hospice evaluation in next few days.
[2024-06-22] MEDS: POTASSIUM CHLORIDE 10 MEQ TABCR PO SCH (11:44)
[2024-06-22] MEDS: MoRPHine SULFATE 2 MG/ML CARP ONE (12:11)
[2024-06-22] MEDS: LORazepam 2 MG/1 ML VIAL ONE (12:11)
--- NOTE | 2024-06-22 12:31 | Hospitalist Progress Note ---
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 Goals of care was discussed with patient's and patient at bedside on 06/22. CODE STATUS changed to DNR/DNI. Patient changed to comfort care measures. Will continue medical intervention. Avoid BiPAP Plan for inpatient hospice evaluation tomorrow Time spent evaluating patient, direct bedside care, chart review, placing orders, interpretation of diagnostic studies, discussion with consultants, patient, and family members, as well as other required patient management activities is 50 minutes Please note the above document was generated using voice recognition software. It may contain grammatical, syntax or spelling errors. Any formal questions or concerns about the content, text or information contained within the body of this dictation should be directly addressed to the provider for clarification Admission and Anticipated Discharge Date Admission Date: June 20, 2024 Subjective Patient seen and examined at bedside. She is tired and lethargic; reports she is in discomfort. Her oxygen level drops on minimal movement and changing bed position She was then placed on BiPAP but wants to take it off. Review of Systems Review of Systems: All systems reviewed & are unremarkable except as noted in Subjective Physical Exam Physical Exam: Constitutional: Appears weak and tired. Respiratory: Decreased breath sound at bases Cardiovascular: RRR, no murmur, no edema Vessels: no JVD or carotid bruit Chest: normal inspection of chest Abdomen: normal bowel sounds, soft, nontender, no hepatosplenomegaly Musculoskeletal: no cyanosis or clubbing, extremities motor strength 5/5 Skin: no rashes, warm and dry normal turgor Neurologic: PERRL, EOMI, accommodation nl, no face palsy, no dysarthria CN's II- XI intact bilaterally and moves all extremities Psychiatric: Alert oriented x 3. Results & Data Results & Data Vital Signs (Past 12 Hours) Vital Signs Temp Pulse Pulse Resp BP Pulse Ox O2 Del Method 06/22/24 11:25 36.8 C 64 18 137/83 94 BiPAP 06/22/24 10:49 Nasal Cannula, BiPAP, CPAP, High Flow Nasal Cannula 06/22/24 09:17 59 L 18 95 06/22/24 08:40 36.6 C 60 15 129/57 L 97 Nasal Cannula 06/22/24 07:17 60 24 100 06/22/24 04:16 60 20 95 06/22/24 02:50 36.5 C 60 18 122/57 L 98 CPAP O2 Flow Rate FiO2 06/22/24 11:25 25 06/22/24 10:49 06/22/24 09:17 60 06/22/24 08:40 7 06/22/24 07:17 50 06/22/24 04:16 40 06/22/24 02:50 (1) Acute and chronic respiratory failure, unspecified whether with hypoxia or hypercapnia Respiratory failure complication: unspecified whether with hypoxia or hypercapnia Qualified Code(s): J96.20 - Acute and chronic respiratory failure, unspecified whether with hypoxia or hypercapnia (8) HTN (hypertension) Hypertension type: unspecified Qualified Code(s): I10 - Essential (primary) hypertension
[2024-06-22] MEDS: LORazepam 2 MG/1 ML VIAL IV PRN (12:53)
[2024-06-22] MEDS: MoRPHine SULFATE 2 MG/ML CARP IV PRN (12:54)
[2024-06-22] MEDS: 4.5GM X1 IV STA (14:59)
[2024-06-22] MEDS ORDERED: Nursing to Pharmacy Communication SCH (17:30)
[2024-06-22] MEDS ORDERED: 4.5GM EXT INFUSION IV SCH (18:00)
[2024-06-22] MEDS: 4.5GM EXT INFUSION IV SCH (20:02)
--- NOTE | 2024-06-23 11:13 | Hospitalist Progress Note ---
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 Goals of care was discussed with patient's and patient at bedside on 06/22. CODE STATUS changed to DNR/DNI. Patient changed to comfort care measures. Will continue medical intervention. Avoid BiPAP Plan for inpatient hospice evaluation Please note the above document was generated using voice recognition software. It may contain grammatical, syntax or spelling errors. Any formal questions or concerns about the content, text or information contained within the body of this dictation should be directly addressed to the provider for clarification Admission and Anticipated Discharge Date Admission Date: June 20, 2024 Subjective Patient seen at bedside She appears comfortable; not in distress Her is at bedside as well Review of Systems Review of Systems: All systems reviewed & are unremarkable except as noted in Subjective Physical Exam Physical Exam: Constitutional: Appears weak and tired. not in any distress Respiratory: Decreased breath sound at bases Cardiovascular: RRR, no murmur, no edema Vessels: no JVD or carotid bruit Chest: normal inspection of chest Abdomen: normal bowel sounds, soft, nontender, no hepatosplenomegaly Musculoskeletal: no cyanosis or clubbing, extremities motor strength 5/5 Skin: no rashes, warm and dry normal turgor Neurologic:moves all extremities (1) Acute and chronic respiratory failure, unspecified whether with hypoxia or hypercapnia Respiratory failure complication: unspecified whether with hypoxia or hypercapnia Qualified Code(s): J96.20 - Acute and chronic respiratory failure, unspecified whether with hypoxia or hypercapnia (8) HTN (hypertension) Hypertension type: unspecified Qualified Code(s): I10 - Essential (primary) hypertension
[2024-06-23] MEDS: DOXYCYCLINE HYCLATE 100 MG CAP PO SCH (21:12)
[2024-06-23] MEDS: CEFDINIR 300 MG CAP PO SCH (21:12)
[2024-06-24] MEDS: ATROPINE SULFATE 1% OP SOLN 5 ML BTL OP PRN (00:30)
[2024-06-24] MEDS: TORSEMIDE 100 MG TAB PO SCH (07:31)
--- NOTE | 2024-06-24 12:46 | Hospitalist Progress Note ---
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 Goals of care was discussed with patient's and patient at bedside on 06/22. CODE STATUS changed to DNR/DNI. Continue comfort care measures Plan to transition to home hospice if she remains stable Please note the above document was generated using voice recognition software. It may contain grammatical, syntax or spelling errors. Any formal questions or concerns about the content, text or information contained within the body of this dictation should be directly addressed to the provider for clarification Admission and Anticipated Discharge Date Admission Date: June 20, 2024 Subjective Patient seen at bedside. She is comfortable; not in distress Family at bedside Review of Systems Review of Systems: All systems reviewed & are unremarkable except as noted in Subjective Physical Exam Physical Exam: Constitutional: Appears weak and tired. not in any distress Respiratory: Decreased breath sound at bases Cardiovascular: RRR, no murmur, no edema Vessels: no JVD or carotid bruit Chest: normal inspection of chest Abdomen: normal bowel sounds, soft, nontender, no hepatosplenomegaly Musculoskeletal: no cyanosis or clubbing, extremities motor strength 5/5 Skin: no rashes, warm and dry normal turgor Neurologic:moves all extremities Results & Data Results & Data Vital Signs (Past 12 Hours) Vital Signs O2 Del Method O2 Flow Rate 06/24/24 07:54 Nasal Cannula 3 (1) Acute and chronic respiratory failure, unspecified whether with hypoxia or hypercapnia Respiratory failure complication: unspecified whether with hypoxia or hypercapnia Qualified Code(s): J96.20 - Acute and chronic respiratory failure, unspecified whether with hypoxia or hypercapnia (8) HTN (hypertension) Hypertension type: unspecified Qualified Code(s): I10 - Essential (primary) hypertension
--- NOTE | 2024-06-24 13:44 | Discharge Summary ---
Date of Service June 24, 2024 Admission HPI Per Admitting Provider she is a 78-year-old obese female with significant past medical history of chronic hypoxic respiratory failure on 3 L of oxygen, asthma, obstructive sleep apnea not on any CPAP and/or BiPAP, coronary artery disease status post stent and also status post pacemaker placement, chronic systolic and diastolic heart failure, paroxysmal atrial fibrillation on Eliquis, peripheral vascular disease, diabetes type 2 on insulin, hypertension, hyperlipidemia, chronic kidney disease and also chronic hyponatremia apparently has been complaining of increasing shortness of breath for the last 3 days. She also complains to have generalized weakness which is worse for the last 3 days. She does have a cough and feels feverish but no documented temperature and her cough is productive of dark to yellow phlegm. She has been almost bedbound for a while at [facility]. She denies any abdominal pain, any nausea and/or vomiting. She complains of swelling of the legs as well and feels that she has been dying. She was in [facility] in February of this year with acute on chronic respiratory failure, CHF exacerbation and also periprosthetic left knee fracture and she was sent to [facility] to continue rehab. she has been Herley coming out of bed for a while at [facility] and not being able to have a few steps without a walker. She has not any change of her medications recently. Admission Exam Per Admitting Provider Physical Exam: Lying in bed with acute distress due to shortness of breath and weakness Constitutional: well developed, well nourished, + ill appearing and + morbidly obese Eyes: PERRL, conjunctivae normal, anicteric sclerae ENMT: external ear and nose normal, oropharynx normal Neck: trachea midline, no thyromegaly Respiratory: + respiratory distress Auscultation: + diminished lung sounds, + crackles ( At the bases) and + wheezes Cardiovascular: Rate/Rhythm: regular rate and regular rhythm; not tachycardic Heart Sounds: normal S1 and normal S2; no murmur Extremities: + edema ( 1+ leg edema bilaterally) Gastrointestinal (Abdomen): Inspection/Auscultation: + abdomen distended and normal bowel sounds Percussion/Palpation: abdomen soft; abdomen nontender Musculoskeletal: minimal pain with movement of the right knee but no acute arthritis involving any other joint Neurologic: Alert, awake and oriented x 3. Generally very weak and lethargic Lymphatic: no cervical or axillary lymphadenopathy Principal Diagnosis Acute on chronic Respiratory Failure Discharge Exam Constitutional: Appears weak and tired. not in any distress Respiratory: Decreased breath sound at bases Cardiovascular: RRR, no murmur, no edema Vessels: no JVD or carotid bruit Chest: normal inspection of chest Abdomen: normal bowel sounds, soft, nontender, no hepatosplenomegaly Musculoskeletal: no cyanosis or clubbing, extremities motor strength 5/5 Skin: no rashes, warm and dry normal turgor Neurologic:moves all extremities Discharge Data Allergies Allergy/AdvReac Type Severity Reaction Status Date / Time fluticasone Allergy Severe WATER ON Verified 03/09/24 18:38 LUNGS, SHORT OF BREATH mold Allergy Severe BLACK Verified 03/09/24 18:38 MOLD--SEE COMMENT salmeterol Allergy Severe WATER ON Verified 03/09/24 18:38 LUNGS, SHORT OF BREATH benzocaine Allergy Unknown Unknown Verified 03/09/24 18:38 Corticosteroids Allergy Anaphylaxis Verified 03/09/24 18:38 (Glucocorticoids) hydrocodone [From Vicodin] AdvReac Intermediate hallucinati Verified 03/09/24 18:38 ons oxycodone AdvReac Intermediate Hallucinati Verified 03/09/24 18:38 ng prednisone AdvReac Intermediate HYPERGLYCEM Verified 03/09/24 18:38 IA propoxyphene AdvReac Intermediate DARVOCET--INSOMNIA, Verified 03/09/24 18:38 EXCESSIVE DRY MOUTH VINYL COVERING Allergy Intermediate Rash Uncoded 03/09/24 18:38 Consultations 06/20/24 14:16 ED Decision to Admit Stat 06/20/24 14:42 Consult Nephrology Routine Consult Pulmonology Routine Hospital Course (1) Acute and chronic respiratory failure, unspecified whether with hypoxia or hypercapnia: (2) Acute hyponatremia: (3) ILD (interstitial lung disease): (4) ISAIAS (obstructive sleep apnea): (5) 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 Goals of care was discussed with patient's and patient at bedside on 06/22. CODE STATUS changed to DNR/DNI. Patient discharged to inpatient hospice. Please note the above document was generated using voice recognition software. It may contain grammatical, syntax or spelling errors. Any formal questions or concerns about the content, text or information contained within the body of this dictation should be directly addressed to the provider for clarification Total Time Total Time Spent Total Time Spent (In Minutes): 35 Total Time Includes: Examination of the Patient, Discharge Planning, Medication Reconciliation, Communication With Other Providers and Other Discharge Plan Discharge Items Patient Disposition: Hospice - Medical Facility Reason For Visit: ACUTE RESP FAILURE,HYPONATTEMIA,ACUTE CHF Discharge Diagnosis: Acute on chronic Respiratory Failure Activity: Resume your previous activity Non-emergency contact: Primary Care Provider Call non-emergency contact if: you have any medication questions and your symptoms worsen Follow-up/Referrals: Rk Jones MD [Primary Care Provider] - Diet: Regular Addtl Attending Provider Instructions: Patient to be admitted under general inpatient hospice Pending Studies at Discharge: No Stand-Alone Forms: My [employer] Skilled Items Patient informed of condition?: No DNR: Yes Discharge Level of Care: Other Communicable Disease: No Discharge Prognosis: Stable Lines: None Urinary Catheter: No Medications and DC Order Prescriptions: Continued Spiriva Respimat 1.25 mcg/actuation mist 2 puff inhalation DAILY Qty: 4 3RF albuterol sulfate 2.5 mg /3 mL (0.083 %) solution for nebulization 2.5 mg inhalation Q4 PRN (Reason: Wheezing) Qty: 180 3RF clopidogrel 75 mg tablet 75 mg PO QAM montelukast 10 mg tablet 10 mg PO QAM loratadine 10 mg Tablet 10 mg PO QAM rosuvastatin 40 mg Tablet 40 mg PO QAM losartan 25 mg tablet 25 mg PO QAM magnesium oxide 200 mg magnesium Tablet,Chewable 400 mg PO QAM gabapentin 100 mg capsule 200 mg PO TID insulin glargine [Lantus Solostar U-100 Insulin] 100 unit/mL (3 mL) insulin pen 45 unit SUBCUT DAILY polyethylene glycol 3350 [Miralax] 17 gram/dose Powder 17 g PO DAILY metoprolol succinate 50 mg tablet extended release 24 hr 50 mg PO QAM torsemide 20 mg tablet 60 mg PO QAM Qty: 90 0RF Eliquis 5 mg tablet 2.5 mg PO BID Qty: 0 0RF benzonatate 100 mg capsule 100 mg PO TID PRN (Reason: Cough) ipratropium-albuterol 0.5 mg-3 mg(2.5 mg base)/3 mL Solution For Nebulization 3 ml INHALATION .Q2H PRN (Reason: sob/wheeze) hydrocodone-acetaminophen 5-325 mg Tablet 1 tab PO Q6H PRN (Reason: Pain) acetaminophen 500 mg Tablet 1,000 mg PO BID magnesium hydroxide [Milk of Magnesia] 400 mg/5 mL Suspension 30 ml PO DAILY PRN (Reason: Constipation) bisacodyl [Dulcolax (bisacodyl)] 10 mg Suppository 10 mg OH DAILY PRN (Reason: Constipation) Fleet Enema 19-7 gram/118 mL Enema 118 ml OH DAILY PRN (Reason: Constipation) insulin lispro [Humalog U-100 Insulin] 100 unit/mL Solution 1 sliding scale dose SUBCUT USEASDIRECTD Rx Instructions: 351-400= 8u; 401-450=12u; 451-500=16u; 501-550=18 units. Recheck bsg in 2 hours. 551-1000=20u; recheck bsg in 1 hour, report results. Subcut two times a day levofloxacin 500 mg Tablet 500 mg PO .Q OTHER DAY Rx Instructions: end date 06/24 Saline Nasal 0.65 % Aerosol,[place] 1 spray INTRANASAL Q1H PRN (Reason: dry nose) Throat Lozenges Lozenge 1 martell MUCOUS MEMBRANE Q2H PRN (Reason: Cough) Discharge Orders: Discharge Order (Routine); Ordered 06/24/24 Ordered By: Dylan Gilman Admission Data Admit Date/Time: 06/20/24 15:10 Attending Provider: Dylan Gilman Admit Provider: Lisset Olivier Primary Care Provider: Rk Jones Other Providers: [place]; [facility]; Lisset Olivier; Andrea Parker; [facility]
== END 2024-06-24 13:49 | disposition hospice, inpatient (51) | DRG 189 ==
LOC: ED 11:40 → SUATTDRO 15:10 → 2E 15:10 → 3E 06-22 16:35

== ENCOUNTER 2024-06-24 13:44 | Inpatient (IN) ==
[2024-06-24] MEDS ORDERED: ONDANSETRON INJ 2 MG/ML 2 ML VIAL IV PRN (13:49)
[2024-06-24] MEDS ORDERED: LORazepam 2 MG/1 ML VIAL IV PRN (13:49)
--- NOTE | 2024-06-24 13:54 | History & Physical Report ---
Date of Service June 24, 2024 Assessment & Plan (1) Hospice care: Plan Patient was brought to the hospital due to confusion and increasing shortness of breath Workup revealed severe hyponatremia and possible pneumonia/exacerbation of underlying interstitial disease/acute on chronic heart failure Patient was started on IV diuretics, antibiotics without minimal improvement Her oxygen requirement increased throughout the hospitalization. Goals of care was discussed with patient's and patient at bedside on 06/22. CODE STATUS changed to DNR/DNI. Patient admitted under hospice care Continue comfort care measures with morphine and ativan will follow up on recommendations by hospice agency Please note the above document was generated using voice recognition software. It may contain grammatical, syntax or spelling errors. Any formal questions or concerns about the content, text or information contained within the body of this dictation should be directly addressed to the provider for clarification History of Present Illness Chief Complaint: [facility] hospice Primary Care Provider: Rk Jones MD Patient was brought to the hospital due to confusion and increasing shortness of breath Workup revealed severe hyponatremia and possible pneumonia/exacerbation of unde rlying interstitial disease/acute on chronic heart failure Patient was started on IV diuretics, antibiotics without minimal improvement Her oxygen requirement increased throughout the hospitalization. Goals of care was discussed with patient's and patient at bedside on 06/22. CODE STATUS changed to DNR/DNI. Patient admitted under [facility] hospice Allergies Allergy/AdvReac Type Severity Reaction Status Date / Time fluticasone Allergy Severe WATER ON Verified 03/09/24 18:38 LUNGS, SHORT OF BREATH mold Allergy Severe BLACK Verified 03/09/24 18:38 MOLD--SEE COMMENT salmeterol Allergy Severe WATER ON Verified 03/09/24 18:38 LUNGS, SHORT OF BREATH benzocaine Allergy Unknown Unknown Verified 03/09/24 18:38 Corticosteroids Allergy Anaphylaxis Verified 03/09/24 18:38 (Glucocorticoids) hydrocodone [From Vicodin] AdvReac Intermediate hallucinati Verified 03/09/24 18:38 ons oxycodone AdvReac Intermediate Hallucinati Verified 03/09/24 18:38 ng prednisone AdvReac Intermediate HYPERGLYCEM Verified 03/09/24 18:38 IA propoxyphene AdvReac Intermediate DARVOCET--INSOMNIA, Verified 03/09/24 18:38 EXCESSIVE DRY MOUTH VINYL COVERING Allergy Intermediate Rash Uncoded 03/09/24 18:38 Home Medications Medication Instructions Recorded Confirmed Type clopidogrel 75 mg tablet 75 mg PO QAM 10/01/19 06/20/24 History loratadine 10 mg tablet 10 mg PO QAM 10/01/19 06/20/24 History montelukast 10 mg tablet 10 mg PO QAM 10/01/19 06/20/24 History rosuvastatin 40 mg tablet 40 mg PO QAM 09/22/21 06/20/24 History insulin glargine 100 unit/mL (3 45 unit subcut DAILY 03/20/22 06/20/24 History mL) subcutaneous pen (Lantus Solostar U-100 Insulin) gabapentin 100 mg capsule 200 mg PO TID 12/12/22 06/20/24 History losartan 25 mg tablet 25 mg PO QAM 12/12/22 06/20/24 History magnesium oxide 400 mg PO QAM 12/12/22 06/20/24 History benzonatate 100 mg capsule 100 mg PO TID PRN Cough 10/28/23 06/20/24 History polyethylene glycol 3350 17 17 g PO DAILY Constipation 12/08/23 06/20/24 History gram/dose oral powder (Miralax) metoprolol succinate 50 mg 50 mg PO QAM 03/09/24 06/20/24 History tablet,extended release 24 hr apixaban 5 mg tablet (Eliquis) 2.5 mg (1/2 x 5 mg) PO BID #0 tabs 03/16/24 06/20/24 Rx torsemide 20 mg tablet 60 mg (3 x 20 mg) PO QAM #90 tabs 03/16/24 06/20/24 Rx albuterol sulfate 2.5 mg/3 mL 2.5 mg (3 mL) inhalation Q4 PRN 04/16/24 06/20/24 Rx (0.083 %) solution for nebulization Wheezing #180 mL tiotropium bromide 1.25 2 puff inhalation DAILY #4 grams 04/16/24 06/20/24 Rx mcg/actuation mist for inhalation (Spiriva Respimat) acetaminophen 500 mg tablet 1,000 mg PO BID 06/20/24 06/20/24 History bisacodyl 10 mg rectal suppository 10 mg CA DAILY PRN Constipation 06/20/24 06/20/24 History (Dulcolax (bisacodyl)) hydrocodone 5 mg-acetaminophen 325 1 tab PO Q6H PRN Pain 06/20/24 06/20/24 History mg tablet insulin lispro 100 unit/mL 1 sliding scale dose subcut 06/20/24 06/20/24 History subcutaneous solution (Humalog USEASDIRECTD U-100 Insulin) ipratropium 0.5 mg-albuterol 3 mg 3 ml inhalation .Q2H PRN sob/wheeze 06/20/24 06/20/24 History (2.5 mg base)/3 mL nebulization soln levofloxacin 500 mg tablet 500 mg PO .Q OTHER DAY 06/20/24 06/20/24 History magnesium hydroxide 400 mg/5 mL 30 ml PO DAILY PRN Constipation 06/20/24 06/20/24 History oral suspension (Milk of Magnesia) menthol-sorbitol lozenges 1 martell mucous membrane Q2H PRN Cough 06/20/24 06/20/24 History sodium chloride 0.65 % nasal spray 1 spray intranasal Q1H PRN dry nose 06/20/24 06/20/24 History aerosol (Saline Nasal) sodium phosphates 19 gram-7 118 ml CA DAILY PRN Constipation 06/20/24 06/20/24 History gram/118 mL enema (Fleet Enema) Past Med/Surg History Problem List (Updated 06/24/24 @ 13:53 by Dylan Gilman MD) Hospice care Acute diastolic heart failure Acute hypoxic on chronic hypercapnic respiratory failure (Acute) Pneumonia (Acute) Acute hyponatremia (Acute) Hyponatremia with excess extracellular fluid volume Hyponatremia Acute hyponatremia Periprosthetic fracture around internal prosthetic knee joint Abnormal chest CT ILD (interstitial lung disease) Paroxysmal atrial fibrillation ISAIAS (obstructive sleep apnea) 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) Anemia (Acute) CHF exacerbation (Acute) Acute and chronic respiratory failure, unspecified whether with hypoxia or hypercapnia (Acute) Arterial occlusion (Acute) Acute leg pain (Acute) Fall (Acute) Weakness (Acute) Closed right fibular fracture (Acute) Hypomagnesemia (Acute) Delirium Encephalopathy Altered mental status Acute kidney injury superimposed on chronic kidney disease Diabetes mellitus, type II Cellulitis of right leg Scalp laceration Fall (Acute) Weakness (Acute) Volume excess Shital-prosthetic fracture of proximal tibia (Acute) Fracture of proximal end of fibula (Acute) Hyperglycemia (Acute) CKD (chronic kidney disease) (Acute) Leukocytosis (Acute) Sleep apnea Hyperkalemia Leukocytosis Periprosthetic fracture around 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 Excessive daytime sleepiness Morbid obesity due to excess calories Obesity hypoventilation syndrome Noncompliance with medication regimen PVD (peripheral vascular disease) CKD (chronic kidney disease), stage III Nonischemic cardiomyopathy HTN (hypertension) Dyslipidemia Diabetes mellitus, type II, insulin dependent Morbid obesity Asthma Pacemaker History of cataract removal with insertion of prosthetic lens History of carpal tunnel release H/O tubal ligation Dehydration (Acute) Complete heart block (Acute 06/14/14) Medical History (Updated 06/24/24 @ 13:53 by Dylan Gilman MD) CKD (chronic kidney disease) stage 4, GFR 15-29 ml/min Chronic hyponatremia Nausea & vomiting Granulomatous interstitial lung disease Physical deconditioning Surgical History History of total knee arthroplasty 2005; bilateral History of cardiac cath 2014 - normal coronary arteries; Dr Jorgensen at [facility] [place] History of revascularization procedure of lower extremity fem/pop artery revascularization RLE; 09/2017; Dr Gill at [facility] [place] Family History Mother Leukemia Son Asthma Brother Stroke Social History (Updated 06/20/24 @ 17:18 by Cary aSlas, PARTHA) Smoking Status: Never smoker Second Hand Exposure: No; Do You Dip or Chew Tobacco: No; Hx Alcohol Use: No Hx Substance Use: No Preferred Language: [place] Communication Ability: Impaired Mender Hand Required: No Beliefs That Will Affect Care: None marital status: Current Living Situation: Group Home Current Living Situation Comment: In a 2 story house with Feels Safe at Home: Yes Assistive Devices: Oxygen - Continuous, Walker and Wheelchair Physical Exam Physical Exam: Constitutional: sleeping, not in any distress Respiratory: Decreased breath sound at bases Cardiovascular: RRR, no murmur, no edema Vessels: no JVD or carotid bruit Chest: normal inspection of chest Abdomen: normal bowel sounds, soft, nontender, no hepatosplenomegaly Musculoskeletal: no cyanosis or clubbing, extremities motor strength 5/5 Skin: no rashes, warm and dry normal turgor Neurologic:moves all extremities
[2024-06-24] MEDS: ATROPINE SULFATE 1% OP SOLN 5 ML BTL SL PRN (14:10)
[2024-06-24] MEDS: MoRPHine SULFATE 2 MG/ML CARP IV PRN (18:41)
--- NOTE | 2024-06-25 12:48 | Hospitalist Progress Note ---
Date of Service June 25, 2024 Assessment & Plan (1) Hospice care: Plan Patient was brought to the hospital due to confusion and increasing shortness of breath Workup revealed severe hyponatremia and possible pneumonia/exacerbation of underlying interstitial disease/acute on chronic heart failure Patient was started on IV diuretics, antibiotics without minimal improvement Her oxygen requirement increased throughout the hospitalization. Goals of care was discussed with patient's and patient at bedside on 06/22. CODE STATUS changed to DNR/DNI. Patient admitted under hospice care Continue comfort care measures with morphine and ativan will follow up on recommendations by hospice agency Please note the above document was generated using voice recognition software. It may contain grammatical, syntax or spelling errors. Any formal questions or concerns about the content, text or information contained within the body of this dictation should be directly addressed to the provider for clarification Admission and Anticipated Discharge Date Admission Date: June 24, 2024 Subjective Patient appears comfortable. Not in any distress. Family at bedside Review of Systems Review of Systems: All systems reviewed & are unremarkable except as noted in Subjective Physical Exam Physical Exam: Constitutional: sleeping, not in any distress Respiratory: Decreased breath sound at bases Cardiovascular: RRR, no murmur, no edema Vessels: no JVD or carotid bruit Chest: normal inspection of chest Abdomen: normal bowel sounds, soft, nontender, no hepatosplenomegaly Musculoskeletal: no cyanosis or clubbing, extremities motor strength 5/5 Skin: no rashes, warm and dry normal turgor Neurologic:moves all extremities Results & Data Results & Data Vital Signs (Past 12 Hours) Vital Signs O2 Del Method O2 Flow Rate 06/25/24 07:20 Nasal Cannula 3
[2024-06-26] MEDS ORDERED: MoRPHine SULFATE 2 MG/ML CARP IV PRN (10:08)
[2024-06-26] MEDS: MoRPHine SULFATE 2 MG/ML CARP IV SCH (10:45)
--- NOTE | 2024-06-26 13:29 | Hospitalist Progress Note ---
Date of Service June 26, 2024 Assessment & Plan (1) Hospice care: Plan Patient was brought to the hospital due to confusion and increasing shortness of breath Workup revealed severe hyponatremia and possible pneumonia/exacerbation of underlying interstitial disease/acute on chronic heart failure Patient was started on IV diuretics, antibiotics without minimal improvement Her oxygen requirement increased throughout the hospitalization. Goals of care was discussed with patient's and patient at bedside on 06/22. CODE STATUS changed to DNR/DNI. Patient admitted under hospice care Continue comfort care measures with morphine and ativan will follow up on recommendations by hospice agency; morphine scheduled and prn as per recommendation. Please note the above document was generated using voice recognition software. It may contain grammatical, syntax or spelling errors. Any formal questions or concerns about the content, text or information contained within the body of this dictation should be directly addressed to the provider for clarification Admission and Anticipated Discharge Date Admission Date: June 24, 2024 Subjective Patient appears comfortable. Not in any distress. Family at bedside Physical Exam Physical Exam: Constitutional: sleeping, not in any distress Respiratory: Decreased breath sound at bases Cardiovascular: RRR, no murmur, no edema Vessels: no JVD or carotid bruit Chest: normal inspection of chest Abdomen: normal bowel sounds, soft, nontender, no hepatosplenomegaly Musculoskeletal: no cyanosis or clubbing, extremities motor strength 5/5 Skin: no rashes, warm and dry normal turgor Neurologic:moves all extremities
[2024-06-26] MEDS: GLYCOPYRROLATE 0.2 MG/ML VIAL IV PRN (18:17)
[2024-06-26] MEDS: MoRPHine SULFATE 2 MG/ML CARP IV PRN (23:28)
--- NOTE | 2024-06-27 05:16 | Death Pronouncement Note ---
Date of Service June 27, 2024 Pronouncement Note Admission Date Admission Date: June 24, 2024 Date and Time of Date of : 06/27/24 Time of : 04:50 Contributing Factors (1) Hospice care: Additional Data Confirmation of : no pulse, no respirations, no heart sounds and pupils fixed and dilated Attending physician: MD Johan Case MD
== END 2024-06-27 07:00 | disposition expired | DRG 951 ==
LOC: 3E 14:01 → SUATTDRO 14:01